=== PATIENT | female | born 1960 | race Caucasian/White ===

== ENCOUNTER 2016-07-28 17:04 | Inpatient (IN) | payer MEDICAID ==
[~2016-07-28] VITALS: Ht 160 cm; Wt 77.3 kg
[2016-07-28 17:05] VITALS: BP 188/90; PULSE 78; RESP 20; TEMP 99.2; O2SAT 98
[2016-07-28] MEDS ORDERED: ONDANSETRON HCL 4 MG/2 ML VIAL IVP ONE (20:15)
[2016-07-28] MEDS ORDERED: SODIUM CHLORIDE 0.9% FLUSH 10 ML FLUSH IV FLUSH PRN (20:15)
--- NOTE | 2016-07-28 20:20 | PD ---
HPI Chief Complaint: Abdominal Pain Time Seen by Provider: 20:17 Travel History International Travel<30 days: No Contact w/Intl Traveler<30days: No Traveled to known affect area: No History of Present Illness HPI 56-year-old female presents to the emergency department for evaluation of abdominal pain for 1 month, but worsening. Patient points to her epigastric region, left upper quadrant, right upper quadrant and suprapubic region when asked her pain is. She also states she has some burning in her back. The patient denies any dysuria. No nausea or vomiting. No fevers. She denies any diarrhea. No chest pain or shortness of breath. She states that her pain will radiate to the right arm. She reports no previous surgeries. She has no chronic medical problems and takes no medications. She denies any alcohol use, tobacco use, drug use. PFSH Past Medical History Medical History: Denies Significant Hx Past Surgical History Surgical History: No Previous Surgery Social History Alcohol Use: No Tobacco Use: No Substance Use: No Allergies-Medications (Allergen,Severity, Reaction): Coded Allergies: Penicillin (Verified Allergy, Unknown, 07/28/16) Reported Meds & Prescriptions Reported Meds & Active Scripts Active No Active Prescriptions or Reported Medications Review of Systems Except as stated in HPI: all other systems reviewed are Neg Physical Exam Narrative GENERAL: Well-nourished, well-developed female patient, ambulatory. Afebrile. SKIN: Focused skin assessment warm/dry. HEAD: Normocephalic. Atraumatic. EYES: No scleral icterus. No injection or drainage. NECK: Supple, trachea midline. No JVD or lymphadenopathy. CARDIOVASCULAR: Regular rate and rhythm without murmurs, gallops, or rubs. RESPIRATORY: Breath sounds equal bilaterally. No accessory muscle use. Lungs sounds are clear to auscultation. GASTROINTESTINAL: Abdomen soft and nondistended. Patient has diffuse tenderness to palpation. This is slightly worse than the right upper quadrant and epigastric regions. MUSCULOSKELETAL: No cyanosis, or edema. BACK: Nontender without obvious deformity. No CVA tenderness. Data Data Last Documented VS Vital Signs Date Time Temp Pulse Resp B/P Pulse Ox O2 Delivery O2 Flow Rate FiO2 07/28/16 20:22 98 Room Air 07/28/16 17:05 99.2 78 20 188/90 Orders Complete Blood Count With Diff (07/28/16 20:15) Comprehensive Metabolic Panel (07/28/16 20:15) Lipase (07/28/16 20:15) Urinalysis - C+S If Indicated (07/28/16 20:15) Iv Access Insert/Monitor (07/28/16 20:15) Ecg Monitoring (07/28/16 20:15) Oximetry (07/28/16 20:15) Ondansetron Inj (Zofran Inj) (07/28/16 20:15) Sodium Chloride 0.9% Flush (Ns Flush) (07/28/16 20:15) Electrocardiogram (07/28/16 20:15) Morphine Inj (Morphine Inj) (07/28/16 20:30) Ct Abd/Pel W Iv Contrast(Rout) (07/28/16 20:20) MDM Medical Decision Making Medical Screen Exam Complete: Yes Emergency Medical Condition: Yes Medical Record Reviewed: Yes Differential Diagnosis Pancreatitis versus cholecystitis versus UTI versus diverticulitis Narrative Course 56-year-old female presents to the emergency department for evaluation of abdominal pain for 1 month. EKG, CBC, CMP, lipase, UA are ordered and pending. CT abdomen/pelvis with IV contrast is ordered and pending. EKG shows sinus rhythm, heart rate 79, no acute ST changes. Dr. Thompson will resume care and disposition of patient. Scripts No Active Prescriptions or Reported Meds Juanita Torres Jul 28, 2016 20:20
[2016-07-28 20:22] VITALS: O2SAT 98
[2016-07-28] MEDS ORDERED: MORPHINE SULFATE 4 MG/ML INJ IV PUSH ONE (20:30)
--- NOTE | 2016-07-28 20:35 | PD ---
Physical Exam Date Seen by Provider: Jul 28, 2016 Time Seen by Provider: 20:33 Narrative The patient is a 56 year-old female was initially evaluated by the mid-level provider. Please refer to the initial history, physical, diagnostic evaluation , and treatment modality plan. Data Data Last Documented VS Vital Signs Date Time Temp Pulse Resp B/P Pulse Ox O2 Delivery O2 Flow Rate FiO2 07/28/16 20:22 98 Room Air 07/28/16 17:05 99.2 78 20 188/90 Orders Complete Blood Count With Diff (07/28/16 20:15) Comprehensive Metabolic Panel (07/28/16 20:15) Lipase (07/28/16 20:15) Urinalysis - C+S If Indicated (07/28/16 20:15) Iv Access Insert/Monitor (07/28/16 20:15) Ecg Monitoring (07/28/16 20:15) Oximetry (07/28/16 20:15) Ondansetron Inj (Zofran Inj) (07/28/16 20:15) Sodium Chloride 0.9% Flush (Ns Flush) (07/28/16 20:15) Electrocardiogram (07/28/16 20:15) Morphine Inj (Morphine Inj) (07/28/16 20:30) Ct Abd/Pel W Iv Contrast(Rout) (07/28/16 20:20) Iohexol 350 Inj (Omnipaque 350 Inj) (07/28/16 21:53) Admit Order (Ed Use Only) (07/28/16 22:42) Diet Npo (07/29/16 Breakfast) Vital Signs (Adult) VANITA.Q4H (07/28/16 22:40) Hepatitis Profile (07/28/16 22:40) Comprehensive Metabolic Panel (07/29/16 06:00) Consult Gastroenterology (07/28/16 ) Us Abdomen Gallbladder (07/28/16 ) Ondansetron Inj (Zofran Inj) (07/28/16 22:45) Hydromorphone Pf Inj (Dilaudid Pf Inj) (07/28/16 22:45) Labs Laboratory Tests Test 07/28/16 07/28/16 07/28/16 20:33 20:53 21:15 White Blood Count 7.9 TH/MM3 Red Blood Count 4.33 MIL/MM3 Hemoglobin 12.7 GM/DL Hematocrit 38.0 % Mean Corpuscular Volume 87.6 FL Mean Corpuscular Hemoglobin 29.3 PG Mean Corpuscular Hemoglobin 33.4 % Concent Red Cell Distribution Width 15.9 % Platelet Count 250 TH/MM3 Mean Platelet Volume 10.8 FL Neutrophils (%) (Auto) 61.7 % Lymphocytes (%) (Auto) 22.3 % Monocytes (%) (Auto) 8.6 % Eosinophils (%) (Auto) 6.7 % Basophils (%) (Auto) 0.7 % Neutrophils # (Auto) 4.9 TH/MM3 Lymphocytes # (Auto) 1.8 TH/MM3 Monocytes # (Auto) 0.7 TH/MM3 Eosinophils # (Auto) 0.5 TH/MM3 Basophils # (Auto) 0.1 TH/MM3 CBC Comment DIFF FINAL Differential Comment Urine Color DARK-YELLOW Urine Turbidity HAZY Urine pH 5.5 Urine Specific [place] 1.021 Urine Protein NEG mg/dL Urine Glucose (UA) NEG mg/dL Urine Ketones NEG mg/dL Urine Occult Blood NEG Urine Nitrite NEG Urine Bilirubin MOD Urine Urobilinogen 2.0 MG/DL Urine Leukocyte Esterase TRACE Urine RBC 1 /hpf Urine WBC 3 /hpf Urine Squamous Epithelial <1 /hpf Cells Urine Calcium Oxalate Crystals OCC /hpf Urine Hyaline Casts 1 /lpf Urine Mucus FEW /lpf Microscopic Urinalysis Comment CULT NOT INDICATED Sodium Level 139 MEQ/L Potassium Level 3.7 MEQ/L Chloride Level 105 MEQ/L Carbon Dioxide Level 26.4 MEQ/L Anion Gap 8 MEQ/L Blood Urea Nitrogen 17 MG/DL Creatinine 0.67 MG/DL Estimat Glomerular Filtration 91 ML/MIN Rate Random Glucose 111 MG/DL Calcium Level 8.6 MG/DL Total Bilirubin 5.5 MG/DL Aspartate Amino Transf 106 U/L (AST/SGOT) Alanine Aminotransferase 93 U/L (ALT/SGPT) Alkaline Phosphatase 372 U/L Total Protein 8.5 GM/DL Albumin 3.2 GM/DL Lipase 196 U/L [facility] Medical Record Reviewed: Yes Supervised Visit with EVELYN: Yes Interpretation(s) EKG reveals normal sinus rhythm, no evidence of ischemia or ectopy noted. Laboratory Tests Test 07/28/16 07/28/16 07/28/16 20:33 20:53 21:15 White Blood Count 7.9 TH/MM3 Red Blood Count 4.33 MIL/MM3 Hemoglobin 12.7 GM/DL Hematocrit 38.0 % Mean Corpuscular Volume 87.6 FL Mean Corpuscular Hemoglobin 29.3 PG Mean Corpuscular Hemoglobin 33.4 % Concent Red Cell Distribution Width 15.9 % Platelet Count 250 TH/MM3 Mean Platelet Volume 10.8 FL Neutrophils (%) (Auto) 61.7 % Lymphocytes (%) (Auto) 22.3 % Monocytes (%) (Auto) 8.6 % Eosinophils (%) (Auto) 6.7 % Basophils (%) (Auto) 0.7 % Neutrophils # (Auto) 4.9 TH/MM3 Lymphocytes # (Auto) 1.8 TH/MM3 Monocytes # (Auto) 0.7 TH/MM3 Eosinophils # (Auto) 0.5 TH/MM3 Basophils # (Auto) 0.1 TH/MM3 CBC Comment DIFF FINAL Differential Comment Urine Color DARK-YELLOW Urine Turbidity HAZY Urine pH 5.5 Urine Specific [place] 1.021 Urine Protein NEG mg/dL Urine Glucose (UA) NEG mg/dL Urine Ketones NEG mg/dL Urine Occult Blood NEG Urine Nitrite NEG Urine Bilirubin MOD Urine Urobilinogen 2.0 MG/DL Urine Leukocyte Esterase TRACE Urine RBC 1 /hpf Urine WBC 3 /hpf Urine Squamous Epithelial <1 /hpf Cells Urine Calcium Oxalate Crystals OCC /hpf Urine Hyaline Casts 1 /lpf Urine Mucus FEW /lpf Microscopic Urinalysis Comment CULT NOT INDICATED Sodium Level 139 MEQ/L Potassium Level 3.7 MEQ/L Chloride Level 105 MEQ/L Carbon Dioxide Level 26.4 MEQ/L Anion Gap 8 MEQ/L Blood Urea Nitrogen 17 MG/DL Creatinine 0.67 MG/DL Estimat Glomerular Filtration 91 ML/MIN Rate Random Glucose 111 MG/DL Calcium Level 8.6 MG/DL Total Bilirubin 5.5 MG/DL Aspartate Amino Transf 106 U/L (AST/SGOT) Alanine Aminotransferase 93 U/L (ALT/SGPT) Alkaline Phosphatase 372 U/L Total Protein 8.5 GM/DL Albumin 3.2 GM/DL Lipase 196 U/L Last Impressions Abdomen/Pelvis CT 07/28/162019 Signed Impressions: Service Date/Time: Thursday, July 28, 2016 21:42 - CONCLUSION: 1. Nonspecific thickening and enhancement of numerous loops of small bowel predominantly in the left abdomen. There is associated mild ascites in the abdomen and pelvis. Differential diagnosis includes enteritis or inflammatory bowel disease. No bowel obstruction. No free air. Jorge Cody MD Differential Diagnosis Differential diagnosis includes pancreatitis, choledocholithiasis, cholecystitis , gastritis, peptic ulcer disease, pyelonephritis, nephrolithiasis, atypical appendicitis. Narrative Course I, Dr. Thompson, have reviewed the advance practice practitioner's documentation and am in agreement, met with the patient face to face, made the diagnosis, and the medical decision making was done by me. *My assessment and Findings: The patient is a 56 year-old female was initially evaluated by the mid-level provider. Please refer to the initial history, physical, diagnostic evaluation, treatment modality plan. The patient complains of epigastric right upper quadrant abdominal pain that radiates to the right shoulder. On physical examination the patient is obviously jaundiced, has tenderness in the right upper quadrant. Patient's bilirubin is elevated at 5.5, AST nail tear elevated and alkaline phosphatase is elevated. CT reveals possible enteritis versus inflammatory bowel disease, no visible gallstones in the common bile duct appears normal. However, patient may have obstructive disease , will need further imaging with ultrasound possible MRCP. Therefore, patient will be admitted to the medical service. A call was placed to the on-call medical team for admission. Physician Communication Physician Communication The on-call medical service was paged for admission. I discussed the patient with Dr. Patel who agrees with admission. Diagnosis Primary Impression: Hyperbilirubinemia Additional Impressions: Obstructive jaundice Abdominal pain Qualified Code: R10.84 - Generalized abdominal pain Admitting Information Admitting Physician Requests: Admit Scripts No Active Prescriptions or Reported Meds Condition: Stable Serjio Thompson MD Jul 28, 2016 20:35
[2016-07-28 20:57] LABS: AUTOMATED NEUTROPHIL # 4.9 TH/MM3 (1.8-7.7); BASOPHIL # 0.1 TH/MM3 (0-0.2); BASOPHIL % 0.7 % (0.0-2.0); EOSINOPHIL # 0.5 TH/MM3 (0-0.4); EOSINOPHIL % 6.7 % (0.0-4.0); HEMO FLAGS DIFF FINAL; LYMPH % 22.3 % (9.0-44.0); LYMPHOCYTE # 1.8 TH/MM3 (1.0-4.8); MEAN CELL VOLUME 87.6 FL (80.0-100.0); MEAN CORPUSCULAR HEMOGLOBIN 29.3 PG (27.0-34.0); MEAN CORPUSCULAR HGB CONC 33.4 % (32.0-36.0); MONO % 8.6 % (0.0-8.0); NEUT % 61.7 % (16.0-70.0); PLATELET COUNT 250 TH/MM3 (150-450); RED BLOOD COUNT 4.33 MIL/MM3 (4.00-5.30); RED CELL DISTRIBUTION WIDTH 15.9 % (11.6-17.2); WHITE BLOOD COUNT 7.9 TH/MM3 (4.0-11.0)
[2016-07-28 21:06] LABS: BLOOD, URINE NEG (NEG); CALCIUM OXALATE CRYSTALS,URINE OCC /hpf; COMMENT (UR) CULT NOT INDICATED; CULTURE IF INDICATED CULT NOT INDICATED; GLUCOSE,URINE NEG (NEG); HYALINE CAST, URINE 1 /lpf (RARE); KETONE, URINE NEG (NEG); MUCUS URINE FEW /lpf (OCC); NITRITE,URINE NEG (NEG); PH, URINE 5.5 (5.0-8.5); SQUAMOUS EPITHELIAL CELL URINE <1 /hpf (0-5); URINE COLOR DARK-YELLOW (YELLW/STRAW)
[2016-07-28 21:51] LABS: ANION GAP 8 MEQ/L (5-15); AST (GOT) 106 U/L (15-37); BICARBONATE 26.4 MEQ/L (21.0-32.0); BLOOD UREA NITROGEN 17 MG/DL (7-18); CHLORIDE 105 MEQ/L (98-107); GLOMERULAR FILTRATION RATE 91 ML/MIN (>89); POTASSIUM 3.7 MEQ/L (3.5-5.1); SODIUM (NA) 139 MEQ/L (136-145)
[2016-07-28] MEDS ORDERED: IOHEXOL 350 MG/ML 10 ML VIAL (for RAD DIAG) IV ONE (21:53)
[2016-07-28 21:54] LABS: ALKALINE PHOSPHATASE 372 U/L (45-117); ALT (GPT) 93 U/L (10-53); TOTAL BILIRUBIN ADULT 5.5 MG/DL (0.2-1.0)
--- NOTE | 2016-07-28 22:22 | RADRPT ---
EXAM DATE/TIME: 07/28/2016 21:42 [facility] COMPARISON: No previous studies available for comparison. INDICATIONS : Left upper and lower quadrant abdominal pain. IV CONTRAST: 100 cc Omnipaque 350 (iohexol) IV ORAL CONTRAST: No oral contrast ingested. RADIATION DOSE: 9.96 CTDIvol (mGy) MEDICAL HISTORY : None SURGICAL HISTORY : None. ENCOUNTER: Initial ACUITY: 1 week PAIN SCALE: 5/10 LOCATION: Left lower quadrant TECHNIQUE: Volumetric scanning of the abdomen and pelvis was performed. Using automated exposure control and ad justment of the mA and/or kV according to patient size, radiation dose was kept as low as reasonably achievable to obtain optimal diagnostic quality images. FINDINGS: No prior studies available for comparison. Lung bases are clear. There is mild ascites in the abdomen and pelvis. Intrahepatic biliary ductal system is mildly prominent. No significant abnormality in th e spleen. No calcified gallstones. Common bile duct has relatively normal caliber. They are numerous thickened loops of small bowel in the left abdomen probably with some mural enhance ment. Findings nonspecific but this could represent an enteritis. No definite obstruction. No free ai r. No acute bony abnormalities. CONCLUSION: 1. Nonspecific thickening and enhancement of numerous loops of small bowel predominantly in the left abdomen. There is associated mild ascites in the abdomen and pelvis. Differential diagnosis includes enteritis or inflammatory bowel disease. No bowel obstruction. No free air. Jorge Cody MD on July 28, 2016 at 22:17 Board Certified Radiologist. This report was verified electronically.
[2016-07-28] MEDS ORDERED: ONDANSETRON HCL 4 MG/2 ML VIAL IV PUSH PRN (22:45)
[2016-07-28] MEDS: SODIUM CHLOR 0.9% 1000 ML INJ 1,000 ML IV SCH (22:52)
[2016-07-28 23:49] VITALS: BP 164/77; PULSE 72; RESP 16; O2SAT 96
--- NOTE | 2016-07-28 23:58 | HHI.HP ---
[facility] Service [facility] Primary Care Physician No Primary Care Physician Admission Diagnosis hyperbilirubinemia, rule out obstructive jaundice, enteritis Diagnoses: (1) Abdominal pain Diagnosis: Principal Chief Complaint: abdominal pain Travel History International Travel<30 Days: No Contact w/Intl Traveler <30 Da: No Traveled to Known Affected Are: No History of Present Illness patient is a 56 y/o female , mongolian speaking,with no significant past medical history who presented with abdominal pain. she says that she's had this pain for about a month. pain is more or less generalized although it's more pronounced in LLQ.the pain is intermittent. she says that the pain is worse with defecation. she denies any fever, chills, or diarrhea. she says that she's probably last some weight. Review of Systems Constitutional: COMPLAINS OF: Weight loss, DENIES: Fever, Chills, Night Sweats Eyes: DENIES: Blurred vision, Diplopia, Vision loss, Double Vision Ears, nose, mouth, throat: DENIES: Tinnitus, Vertigo, Throat pain, Epistaxis Respiratory: DENIES: Apneas, Cough, Snoring, Wheezing, Hemoptysis, Sputum production, Shortness of breath Cardiovascular: DENIES: Chest pain, Palpitations, Syncope, Dyspnea on Exertion , PND, Lower Extremity Edema, Orthopnea, Claudication Gastrointestinal: COMPLAINS OF: Abdominal pain, DENIES: Black stools, Bloody stools, Constipation, Diarrhea, Nausea, Vomiting, Difficulty Swallowing, Anorexia Genitourinary: DENIES: Urinary frequency, Urgency, Hematuria, Dysuria Musculoskeletal: DENIES: Joint pain, Muscle aches, Stiffness, Joint Swelling Integumentary: DENIES: Rash Neurologic: DENIES: Abnormal gait, Headache, Localized weakness, Paresthesias, Seizures, Speech Problems, Tremor, Poor Balance Psychiatric: DENIES: Anxiety, Confusion, Mood changes, Depression, Hallucinations, Agitation, Suicidal Ideation, Homicidal Ideation, Delusions Past Family Social History Past Medical History not significant. Past Surgical History none reported. Reported Medications none. Allergies: Coded Allergies: Penicillin (Verified Allergy, Unknown, 07/28/16) Active Ordered Medications Current Medications Ondansetron HCl (Zofran Inj) 4 mg ONCE ONCE IVP Last administered on 07/28/16 21:01; Start 07/28/16 at 20:15; Stop 07/28/16 at 20:17; Status DC Sodium Chloride (NS Flush) 2 ml UNSCH PRN IV FLUSH FLUSH AFTER USING IV ACCESS ; Start 07/28/16 at 20:15 Morphine Sulfate (Morphine Inj) 4 mg ONCE ONCE IV PUSH Last administered on 21:01; Start 07/28/16 at 20:30; Stop 07/28/16 at 20:31; Status DC Iohexol (Omnipaque 350 Inj) 100 ml STK-MED ONCE IV Last administered on 21:53; Start 07/28/16 at 21:53; Stop 07/28/16 at 21:54; Status DC Ondansetron HCl (Zofran Inj) 4 mg Q8H PRN IV PUSH NAUSEA; Start 07/28/16 at 22: 45 Hydromorphone HCl 0.2 mg 0.2 mg Q4H PRN IV PUSH PAIN; Start 07/28/16 at 22:45 Sodium Chloride (NS 1000 ml Inj) 1,000 ml @ 100 mls/hr Q10H IV Last administered on 07/28/16 22:52; Start 07/28/16 at 22:45 Family History not significant. Social History no smoking or drinking. Physical Exam Vital Signs Vital Signs Date Time Temp Pulse Resp B/P Pulse Ox O2 Delivery O2 Flow Rate FiO2 07/28/16 23:49 72 16 164/77 96 07/28/16 20:22 98 Room Air 07/28/16 17:05 99.2 78 20 188/90 98 Room Air Physical Exam GENERAL: This is a well-nourished, well-developed patient, in no apparent distress. SKIN: No rashes, ecchymoses or lesions. Cool and dry. HEAD: Atraumatic. Normocephalic. No temporal or scalp tenderness. EYES: with icteric sclera ENT: Nose without bleeding, purulent drainage or septal hematoma. Throat without erythema, tonsillar hypertrophy or exudate. Uvula midline. Airway patent. NECK: Trachea midline. No JVD or lymphadenopathy. Supple, nontender, no meningeal signs. CARDIOVASCULAR: Regular rate and rhythm without murmurs, gallops, or rubs. RESPIRATORY: Clear to auscultation. Breath sounds equal bilaterally. No wheezes , rales, or rhonchi. GASTROINTESTINAL: Abdomen soft, LLQ tenderness, nondistended. No hepato- splenomegaly, or palpable masses. No guarding. MUSCULOSKELETAL: Extremities without clubbing, cyanosis, or edema. No joint tenderness, effusion, or edema noted. No calf tenderness. Negative Homans sign bilaterally. NEUROLOGICAL: Awake and alert. Cranial nerves II through XII intact. Motor and sensory grossly within normal limits. Five out of 5 muscle strength in all muscle groups. Normal speech. Laboratory Laboratory Tests Test 07/28/16 07/28/16 07/28/16 20:33 20:53 21:15 White Blood Count 7.9 Red Blood Count 4.33 Hemoglobin 12.7 Hematocrit 38.0 Mean Corpuscular Volume 87.6 Mean Corpuscular Hemoglobin 29.3 Mean Corpuscular Hemoglobin 33.4 Concent Red Cell Distribution Width 15.9 Platelet Count 250 Mean Platelet Volume 10.8 Neutrophils (%) (Auto) 61.7 Lymphocytes (%) (Auto) 22.3 Monocytes (%) (Auto) 8.6 Eosinophils (%) (Auto) 6.7 Basophils (%) (Auto) 0.7 Neutrophils # (Auto) 4.9 Lymphocytes # (Auto) 1.8 Monocytes # (Auto) 0.7 Eosinophils # (Auto) 0.5 Basophils # (Auto) 0.1 CBC Comment DIFF FINAL Differential Comment Urine Color DARK-YELLOW Urine Turbidity HAZY Urine pH 5.5 Urine Specific [place] 1.021 Urine Protein NEG Urine Glucose (UA) NEG Urine Ketones NEG Urine Occult Blood NEG Urine Nitrite NEG Urine Bilirubin MOD Urine Urobilinogen 2.0 Urine Leukocyte Esterase TRACE Urine RBC 1 Urine WBC 3 Urine Squamous Epithelial <1 Cells Urine Calcium Oxalate Crystals OCC Urine Hyaline Casts 1 Urine Mucus FEW Microscopic Urinalysis Comment CULT NOT INDICATED Sodium Level 139 Potassium Level 3.7 Chloride Level 105 Carbon Dioxide Level 26.4 Anion Gap 8 Blood Urea Nitrogen 17 Creatinine 0.67 Estimat Glomerular Filtration 91 Rate Random Glucose 111 Calcium Level 8.6 Total Bilirubin 5.5 Aspartate Amino Transf 106 (AST/SGOT) Alanine Aminotransferase 93 (ALT/SGPT) Alkaline Phosphatase 372 Total Protein 8.5 Albumin 3.2 Lipase 196 Result Diagram: 07/28/16203207/28/162114 Imaging Last Impressions Abdomen/Pelvis CT 07/28/162019 Signed Impressions: Service Date/Time: Thursday, July 28, 2016 21:42 - CONCLUSION: 1. Nonspecific thickening and enhancement of numerous loops of small bowel predominantly in the left abdomen. There is associated mild ascites in the abdomen and pelvis. Differential diagnosis includes enteritis or inflammatory bowel disease. No bowel obstruction. No free air. Jorge Cody MD Assessment and Plan Assessment and Plan A/P - abdominal pain CT abdomen with possible enteritis/ inflammatory bowel disease NPO for now- start IV fluid and continue with pain control- will start Abx and consult GI -elevated LFT's liver sonogram pending/ check the hepatitis panel- GI consult -DVT prophylaxis with SCD's Discussed Condition With ER physician and the patient. Physician Certification 2 Midnight Certification Type: Admission for Inpatient Services Order for Inpatient Services The services are ordered in accordance with Medicare regulations or non- Medicare payer requirements, as applicable. In the case of services not specified as inpatient-only, they are appropriately provided as inpatient services in accordance with the 2-midnight benchmark. Estimated LOS (days): 2 days is the estimated time the patient will need to remain in the hospital, assuming treatment plan goals are met and no additional complications. Post-Hospital Plan: Home Problem Qualifiers (1) Abdominal pain: Qualified Code: R10.84 - Generalized abdominal pain Bre Patel MD Jul 28, 2016 23:58
[2016-07-29] VITALS (7 sets, daily range): BP systolic 152–165; BP diastolic 74–93; PULSE 71–93; RESP 16–20; TEMP 97.7–99.2; O2SAT 96–98
--- NOTE | 2016-07-29 00:01 | RADRPT ---
EXAM DATE/TIME: 07/28/2016 23:17 [facility] COMPARISON: CT ABDOMEN & PELVIS W CONTRAST, July 28, 2016, 21:42. INDICATIONS : Right upper quadrant pain. MEDICAL HISTORY : Right upper quadrant pain. Substance use. SURGICAL HISTORY : None. ENCOUNTER: Initial ACUITY: 1 month PAIN SCORE: 10/10 LOCATION: Right upper quadrant MEASUREMENTS: LIVER: 15.1 cm length COMMON DUCT: 6 mm RIGHT KIDNEY: 10.3 x 5.3 x 4.6 cm FINDINGS: LIVER: Normal echotexture without focal lesion or ductal dilatation. Hepatopedal flow within the portal vein . Trace amount of ascites adjacent to the right lobe COMMON DUCT: No intraluminal mass or stone visualized. GALLBLADDER: A 2.7 cm solitary calcified gallstone within an otherwise normal-appearing gallbladder. No gallbladde r wall thickening or pericholecystic fluid. PANCREAS: The visualized portions are within normal limits. RIGHT KIDNEY: No evidence of hydronephrosis, stone, or mass. CONCLUSION: 1. Cholelithiasis without sonographic evidence to suggest acute cholecystitis. 2. Trace amount of ascites. Bert Nunes Jr., MD on July 28, 2016 at 23:57 Board Certified Radiologist. This report was verified electronically.
[2016-07-29] MEDS: LEVOFLOXACIN 500 MG PREMIX INJ 100 ML IV SCH ×2 (00:27→23:12)
[2016-07-29] MEDS: metroNIDAZOLE 500 MG INJ 100 ML IV SCH ×3 (01:23→17:00)
[2016-07-29 04:11] LABS: INTERNATIONAL NORMALIZED RATIO 1.1 RATIO; PROTHROMBIN TIME - PATIENT 11.9 SEC (9.8-11.6)
[2016-07-29 06:11] LABS: ALT (GPT) 88 U/L (10-53); ANION GAP 8 MEQ/L (5-15); AST (GOT) 99 U/L (15-37); BICARBONATE 26.8 MEQ/L (21.0-32.0); BLOOD UREA NITROGEN 13 MG/DL (7-18); CHLORIDE 105 MEQ/L (98-107); GLOMERULAR FILTRATION RATE 96 ML/MIN (>89); POTASSIUM 3.7 MEQ/L (3.5-5.1); SODIUM (NA) 140 MEQ/L (136-145)
[2016-07-29 06:13] LABS: ALKALINE PHOSPHATASE 356 U/L (45-117); TOTAL BILIRUBIN ADULT 5.9 MG/DL (0.2-1.0)
--- NOTE | 2016-07-29 08:10 | HHI.PR ---
Subjective Remarks Follow up abdominal pain, elevated LFTs. Computer translation service used with nurse present. Patient states that her abdominal pain has improved. Denies nausea/vomiting/diarrhea. Still with mild abdominal pain in RUQ. No fever. Objective Vitals Vital Signs Date Time Temp Pulse Resp B/P Pulse Ox O2 Delivery O2 Flow Rate FiO2 07/29/16 07:55 97.7 75 16 159/79 98 Room Air 07/29/16 03:36 77 16 162/74 98 Room Air 07/28/16 23:49 72 16 164/77 96 07/28/16 20:22 98 Room Air 07/28/16 17:05 99.2 78 20 188/90 98 Room Air Result Diagram: 07/28/16203207/29/16 0501 Imaging Last Impressions Abdomen/Pelvis CT 07/28/162019 Signed Impressions: Service Date/Time: Thursday, July 28, 2016 21:42 - CONCLUSION: 1. Nonspecific thickening and enhancement of numerous loops of small bowel predominantly in the left abdomen. There is associated mild ascites in the abdomen and pelvis. Differential diagnosis includes enteritis or inflammatory bowel disease. No bowel obstruction. No free air. Jorge Cody MD Gall Bladder Ultrasound 07/28/16 0000 Signed Impressions: Service Date/Time: Thursday, July 28, 2016 23:17 - CONCLUSION: 1. Cholelithiasis without sonographic evidence to suggest acute cholecystitis. 2. Trace amount of ascites. Bert Nunes Jr., MD Objective Remarks General: No acute distress. Heart: Regular rate and rhythm. 2/6 systolic murmur. Lungs: Clear to auscultation bilaterally. No wheezes, rales, or rhonchi. Breathing is nonlabored. Abdomen: Soft, nondistended. Mild tenderness in RUQ without rebound/guarding. Extremities: No lower extremity edema. Psych: Alert and oriented. Procedures None Urinary Catheter: No Vascular Central Line Catheter: No A/P Problem List: (1) Abdominal pain ICD Code: R10.9 Status: Acute (2) Hyperbilirubinemia ICD Code: E80.6 Status: Acute (3) Elevated LFTs ICD Code: R94.5 Status: Acute Assessment and Plan 1. Abdominal pain: CT of the abdomen/pelvis shows possible enteritis, inflammatory bowel disease. Gastroenterology consult is pending. Nothing by mouth. Continue empiric antibiotics, Levaquin and Flagyl. Continue pain control. 2. Elevated LFTs, hyperbilirubinemia: Hepatitis panel pending. GI consult pending. 3. DVT prophylaxis: YUE [place]a. Problem Qualifiers (1) Abdominal pain: Qualified Code: R10.84 - Generalized abdominal pain Angel Us MD Jul 29, 2016 08:10
[2016-07-29] MEDS ORDERED: NALOXONE HCL 0.4 MG/ML AMP IV PRN (08:15)
[2016-07-29] MEDS: SODIUM CHLOR 0.9% 1000 ML INJ 1,000 ML IV SCH ×2 (08:55→22:21)
--- NOTE | 2016-07-29 12:55 | EKG ---
Date Performed: 07/28/2016 Time Performed: 20:26:17 PTAGE: 56 years EKG: Sinus rhythm NORMAL ECG NO PREVIOUS TRACING DOCTOR: Leandro Vazquez Interpretating Date/Time 07/29/2016 12:54:03
--- NOTE | 2016-07-29 14:34 | PD.CONS ---
HPI History of Present Illness This is a 56 year old [beninese speaking lady], with no significant medical history who came to the hospital for worsening abdominal pain that started 5 weeks ago and while here was found to have elevated liver enzymes and hyperbilirubinemia. She said the pain started as crampy on and off and gradually got worse until she couldn't stand it anymore. she denies nausea, vomiting, fever, diarrhea, blood in stool at any time since the pain started. Denies sick contacts, recent travel, antibiotics, or change in diet or medication. She takes no medication except excedrin. The pain has improved greatly since she came to the hospital but she still has small twinges when she goes to urinate or have a bowel movement, then the pain is relieved after defecating or urinating. She indicates that the pain is in her lower abdomen. She takes 2 excedrin daily for energy, does not know if they contain tylenol or aspirin. She has never had an EGD or colonoscopy. Translation via videoconference with remote quarter section ironer. (Giselle Nunez) PFSH Past Medical History none Past Surgical History none reported. (Giselle Nunez) Coded Allergies: Penicillin (Verified Allergy, Unknown, 07/28/16) Medications Current Medications Medications (Trade) Dose Ordered Sig/Anastacio Route PRN Reason Start Time Stop Time Status Last Admin Dose Admin Sodium Chloride (NS Flush) 2 ml UNSCH PRN IV FLUSH FLUSH AFTER USING IV ACCESS 07/28/16 20:15 Hydromorphone HCl 0.2 mg 0.2 mg Q4H PRN IV PUSH PAIN 07/28/16 22:45 Sodium Chloride 1,000 ml @ 100 mls/hr Q10H IV 07/28/16 22:45 07/29/16 08:55 Levofloxacin/ Dextrose 100 ml @ 100 mls/hr Q24H IV 07/29/16 00:00 07/29/16 00:27 Metronidazole (Flagyl 500 Mg Inj) 100 ml @ 100 mls/hr Q8H IV 07/29/16 01:00 07/29/16 09:21 Ondansetron HCl (Zofran Inj) 4 mg Q8HR PRN IV PUSH NAUSEA 07/29/16 00:00 Naloxone HCl (Narcan Inj) 0.4 mg UNSCH PRN IV SEE LABEL COMMENTS 07/29/16 08:15 Family History Her father of cancer, type unk Social History no smoking or drinking. (Giselle Nunez) Review of Systems Constitutional: DENIES: Fatigue, Fever, Chills Eyes: DENIES: Blurred vision Ears, nose, mouth, throat: DENIES: Hearing loss Respiratory: DENIES: Cough Cardiovascular: DENIES: Chest pain Gastrointestinal: COMPLAINS OF: Abdominal pain, DENIES: Black stools, Bloody stools, Constipation, Diarrhea, Nausea, Vomiting, Heartburn Musculoskeletal: DENIES: Joint pain Integumentary: DENIES: Pruritus Hematologic/lymphatic: DENIES: Bruising Neurologic: DENIES: Abnormal gait Psychiatric: DENIES: Confusion (Giselle Nunez) GI Exam Vitals I&O Vital Signs Date Time Temp Pulse Resp B/P Pulse Ox O2 Delivery O2 Flow Rate FiO2 07/29/16 12:30 99.2 87 18 165/89 97 07/29/16 12:21 74 18 152/74 99 07/29/16 11:28 71 20 158/77 96 Room Air 07/29/16 07:55 97.7 75 16 159/79 98 Room Air 07/29/16 03:36 77 16 162/74 98 Room Air 07/28/16 23:49 72 16 164/77 96 07/28/16 20:22 98 Room Air 07/28/16 17:05 99.2 78 20 188/90 98 Room Air Imaging Last Impressions Abdomen/Pelvis CT 07/28/162019 Signed Impressions: Service Date/Time: Thursday, July 28, 2016 21:42 - CONCLUSION: 1. Nonspecific thickening and enhancement of numerous loops of small bowel predominantly in the left abdomen. There is associated mild ascites in the abdomen and pelvis. Differential diagnosis includes enteritis or inflammatory bowel disease. No bowel obstruction. No free air. Jorge Cody MD Gall Bladder Ultrasound 07/28/16 0000 Signed Impressions: Service Date/Time: Thursday, July 28, 2016 23:17 - CONCLUSION: 1. Cholelithiasis without sonographic evidence to suggest acute cholecystitis. 2. Trace amount of ascites. Bert Nunes Jr., MD Laboratory Test 07/28/16 07/28/16 07/28/16 07/29/16 20:33 20:53 21:15 03:39 White Blood Count 7.9 TH/MM3 Red Blood Count 4.33 MIL/MM3 Hemoglobin 12.7 GM/DL Hematocrit 38.0 % Mean Corpuscular Volume 87.6 FL Mean Corpuscular Hemoglobin 29.3 PG Mean Corpuscular Hemoglobin 33.4 % Concent Red Cell Distribution Width 15.9 % Platelet Count 250 TH/MM3 Mean Platelet Volume 10.8 FL Neutrophils (%) (Auto) 61.7 % Lymphocytes (%) (Auto) 22.3 % Monocytes (%) (Auto) 8.6 % Eosinophils (%) (Auto) 6.7 % Basophils (%) (Auto) 0.7 % Neutrophils # (Auto) 4.9 TH/MM3 Lymphocytes # (Auto) 1.8 TH/MM3 Monocytes # (Auto) 0.7 TH/MM3 Eosinophils # (Auto) 0.5 TH/MM3 Basophils # (Auto) 0.1 TH/MM3 CBC Comment DIFF FINAL Differential Comment Urine Color DARK-YELLOW Urine Turbidity HAZY Urine pH 5.5 Urine Specific [place] 1.021 Urine Protein NEG mg/dL Urine Glucose (UA) NEG mg/dL Urine Ketones NEG mg/dL Urine Occult Blood NEG Urine Nitrite NEG Urine Bilirubin MOD Urine Urobilinogen 2.0 MG/DL Urine Leukocyte Esterase TRACE Urine RBC 1 /hpf Urine WBC 3 /hpf Urine Squamous Epithelial <1 /hpf Cells Urine Calcium Oxalate Crystals OCC /hpf Urine Hyaline Casts 1 /lpf Urine Mucus FEW /lpf Microscopic Urinalysis Comment CULT NOT INDICATED Sodium Level 139 MEQ/L Potassium Level 3.7 MEQ/L Chloride Level 105 MEQ/L Carbon Dioxide Level 26.4 MEQ/L Anion Gap 8 MEQ/L Blood Urea Nitrogen 17 MG/DL Creatinine 0.67 MG/DL Estimat Glomerular Filtration 91 ML/MIN Rate Random Glucose 111 MG/DL Calcium Level 8.6 MG/DL Total Bilirubin 5.5 MG/DL Aspartate Amino Transf 106 U/L (AST/SGOT) Alanine Aminotransferase 93 U/L (ALT/SGPT) Alkaline Phosphatase 372 U/L Total Protein 8.5 GM/DL Albumin 3.2 GM/DL Lipase 196 U/L Prothrombin Time 11.9 SEC Prothromb Time International 1.1 RATIO Ratio Hepatitis A IgM Antibody NEGATIVE Hepatitis B Surface Antigen NEGATIVE Hepatitis B Core IgM Antibody NEGATIVE Hepatitis C Antibody NEGATIVE Test 07/29/16 05:01 Sodium Level 140 MEQ/L Potassium Level 3.7 MEQ/L Chloride Level 105 MEQ/L Carbon Dioxide Level 26.8 MEQ/L Anion Gap 8 MEQ/L Blood Urea Nitrogen 13 MG/DL Creatinine 0.64 MG/DL Estimat Glomerular Filtration 96 ML/MIN Rate Random Glucose 98 MG/DL Calcium Level 8.7 MG/DL Total Bilirubin 5.9 MG/DL Aspartate Amino Transf 99 U/L (AST/SGOT) Alanine Aminotransferase 88 U/L (ALT/SGPT) Alkaline Phosphatase 356 U/L Total Protein 8.1 GM/DL Albumin 3.0 GM/DL Physical Examination HEENT: EOMI; normocephalic; atraumatic; NECK: Neck is supple, no JVD, CHEST: Chest is clear to auscultation and percussion. CARDIAC: Regular rate and rhythm with no murmur gallop or rubs. ABDOMEN: Soft, nondistended, TTP RUQ, LUQ, epigastric region; bowel sounds are present in all four quadrants. EXTREMITIES: No clubbing, cyanosis, or edema. SKIN: Normal; no rash; jaundiced appearance. [employer] GRAIN: No focal deficits; alert and oriented times three. (Giselle Nunez) Assessment and Plan Plan ASSESSMENT: - elevated LFTs. ALT 88, AST 106, ALP 356, Tbili 5.9. Hep panel neg. Pt denies ETOH, drugs. Imaging does not suggest biliary obstruction. US GB 07/28/16 cholelithiasis without sonographic evidence to suggest acute cholecystitis, trace amound ascites. 07/28/16 CT----> nonspecific thickening and enhancement of numerous loops of small bowel predominantly in the left abdomen. There is associated mild ascites in abdomen and pelvis. Differential includes enteritis or IBD. No bowel obstruction - abdominal pain, improving. gastroenteritis? Pt indicated lower abdominal pain but tender to palpation of upper abdomen, bryan RUQ. US GB 07/28/16----> cholelithiasis without sonographic evidence to suggest acute cholecystitis, trace amount ascites. 07/28/16 CT----> nonspecific thickening and enhancement of numerous loops of small bowel predominantly in the left abdomen. There is associated mild ascites in abdomen and pelvis. Differential includes enteritis or IBD. No bowel obstruction PLAN: - SARAHI - liver immunology and serology labs - check tylenol level - consider MRCP - continue PPI (Giselle Nunez) Physician Comments Seen and examined, on her way to MRI. No clear etiology of symptoms yet. EGD tomorrow. Thank you (Rajni Hagen MD) Giselle Nunez Jul 29, 2016 14:34 Rajni Hagen MD Jul 29, 2016 19:20
[2016-07-29 15:31] LABS: FERRITIN 41 NG/ML (8-252); TRANSFERRIN IRON PROFILE 310 MG/DL (200-360)
[2016-07-29 16:19] LABS: ACETAMINOPHEN LESS THAN 2.0 MCG/ML (10.0-30.0)
--- NOTE | 2016-07-29 21:07 | RADRPT ---
EXAM DATE/TIME: 07/29/2016 19:06 This report includes an Addendum and supersedes previous reports for this exam. [facility] COMPARISON: CT ABDOMEN & PELVIS W CONTRAST, July 28, 2016, 21:42. INDICATIONS : Abdominal pain. Obstruction. MEDICAL HISTORY : None. SURGICAL HISTORY : None. ENCOUNTER: Subsequent ACUITY: 2 day PAIN SCORE: 4/10 LOCATION: abdomen. TECHNIQUE: Multiplanar, multisequence magnetic resonance imaging of the abdomen was performed. High-resolution 3D dataset was utilized to reconstruct maximum-intensity projection (MIP) images. FINDINGS: Large gallstone is present. There is slight ascites throughout the abdomen and pelvis. There are tiny cysts in the left kidney. The common bile duct measures 4 mm without filling defects. CONCLUSION: Slight ascites and large gallstone. Marc Levine MD on July 29, 2016 at 21:04 Board Certified Radiologist. This report was verified electronically. ADDENDUM: The common hepatic duct does appear to be significantly attenuated just below the level of the duct c onfluence. The appearance is worrisome for high-grade stricture. The length of the abnormality appear s to be just under 2 cm. No discrete mass is identified. Fadi Santa MD on July 30, 2016 at 17:14 Board Certified Radiologist. This report was verified electronically.
[2016-07-29] MEDS ORDERED: CHLORHEXIDINE GLUCONATE 2 % 1 PACK (2 CLOTHS) TOPICAL PRN (23:30)
[2016-07-29] MEDS ORDERED: POVIDONE IODINE 5% (ANTISEPSIS KIT) 4 APPLICATIONS EACH NARE PRN (23:30)
[2016-07-29] MEDS ORDERED: SODIUM CHLORID 0.9% 500 ML IV PRN (23:30)
[2016-07-29] MEDS ORDERED: LACTATED RINGER'S 1000 ML IV PRN (23:30)
[2016-07-29] MEDS ORDERED: INSULIN HUMAN REGULAR 1,000 UNITS/10 ML VIAL SQ PRN (23:30)
[2016-07-29] MEDS ORDERED: METOPROLOL TARTRATE 25 MG TAB PO PRN (23:30)
[2016-07-30] VITALS (12 sets, daily range): BP systolic 150–172; BP diastolic 74–93; PULSE 74–90; RESP 16–18; TEMP 98.5–99.4; O2SAT 94–98
[2016-07-30] MEDS: metroNIDAZOLE 500 MG INJ 100 ML IV SCH ×3 (00:10→18:20)
[2016-07-30] MEDS: SODIUM CHLOR 0.9% 1000 ML INJ 1,000 ML IV SCH (00:11)
[2016-07-30 07:20] LABS: ALKALINE PHOSPHATASE 354 U/L (45-117); ALT (GPT) 91 U/L (10-53); ANION GAP 9 MEQ/L (5-15); AST (GOT) 106 U/L (15-37); BLOOD UREA NITROGEN 13 MG/DL (7-18); CHLORIDE 102 MEQ/L (98-107); GLOMERULAR FILTRATION RATE 103 ML/MIN (>89); POTASSIUM 3.3 MEQ/L (3.5-5.1); SODIUM (NA) 139 MEQ/L (136-145); TOTAL BILIRUBIN ADULT 6.4 MG/DL (0.2-1.0)
--- NOTE | 2016-07-30 07:55 | HHI.PR ---
Subjective Remarks Follow up abdominal pain. EGD scheduled for today. She is still having abdominal pain this morning. No nausea or vomiting. She reports that the abdominal pain improves after a bowel movement. Objective Vitals Vital Signs Date Time Temp Pulse Resp B/P Pulse Ox O2 Delivery O2 Flow Rate FiO2 07/30/16 04:00 99.0 75 18 154/86 98 07/30/16 00:00 98.7 78 18 150/88 95 07/29/16 20:00 99.2 82 18 157/93 97 07/29/16 20:00 88 07/29/16 16:30 98.3 93 18 160/84 98 07/29/16 12:30 99.2 87 18 165/89 97 07/29/16 12:21 74 18 152/74 99 07/29/16 11:28 71 20 158/77 96 Room Air 07/29/16 07:55 97.7 75 16 159/79 98 Room Air I/O 07/29/16 07/29/16 07/29/16 07/30/16 07/30/16 07/30/16 07:00 15:00 23:00 07:00 15:00 23:00 Intake Total 1087 ml Output Total 450 ml Balance -450 ml 1087 ml Intake Oral 240 ml IV Total 847 ml Output Urine Total 450 ml # Voids 2 2 Result Diagram: 07/28/16203207/30/16522 Imaging Last Impressions Cholangiopancreatography MRI 07/29/16 0000 Signed Impressions: Service Date/Time: July 19:06 - CONCLUSION: Slight ascites and large gallstone. K. Sam Levine MD Abdomen/Pelvis CT 07/28/162019 Signed Impressions: Service Date/Time: Thursday, July 28, 2016 21:42 - CONCLUSION: 1. Nonspecific thickening and enhancement of numerous loops of small bowel predominantly in the left abdomen. There is associated mild ascites in the abdomen and pelvis. Differential diagnosis includes enteritis or inflammatory bowel disease. No bowel obstruction. No free air. Jorge Cody MD Gall Bladder Ultrasound 07/28/16 0000 Signed Impressions: Service Date/Time: Thursday, July 28, 2016 23:17 - CONCLUSION: 1. Cholelithiasis without sonographic evidence to suggest acute cholecystitis. 2. Trace amount of ascites. Bert Nunes Jr., MD Objective Remarks General: No acute distress. Heart: Regular rate and rhythm. 2/6 systolic murmur. Lungs: Clear to auscultation bilaterally. No wheezes, rales, or rhonchi. Breathing is nonlabored. Abdomen: Soft, nondistended. Mild tenderness diffusely without rebound/guarding. Extremities: No lower extremity edema. Psych: Alert and oriented. Procedures None Urinary Catheter: No Vascular Central Line Catheter: No A/P Problem List: (1) Abdominal pain ICD Code: R10.9 Status: Acute (2) Hyperbilirubinemia ICD Code: E80.6 Status: Acute (3) Elevated LFTs ICD Code: R94.5 Status: Acute (4) Cardiac murmur ICD Code: R01.1 Status: Acute Assessment and Plan 1. Abdominal pain: CT of the abdomen/pelvis shows possible enteritis, inflammatory bowel disease. Appreciate GI recommendations. MRCP noted. EGD today. Nothing by mouth. Continue empiric antibiotics, Levaquin and Flagyl. Continue pain control. 2. Elevated LFTs, hyperbilirubinemia: Hepatitis panel pending. Appreciate GI recommendations. 3. Heart murmur: Check echocardiogram. 4. DVT prophylaxis: SCDs, YUE arias. Problem Qualifiers (1) Abdominal pain: Qualified Code: R10.84 - Generalized abdominal pain Angel Us MD Jul 30, 2016 07:55
[2016-07-30] MEDS: NS + KCL 20 MEQ INJ 1,000 ML IV SCH (08:25)
[2016-07-30] MEDS ORDERED: PROPOFOL 200 MG/20 ML AMP IV ONE (11:33)
--- NOTE | 2016-07-30 11:44 | GIPROC ---
[facility] [address] [facility]. [facility], [id number] EGD PROCEDURE REPORT EXAM DATE: 07/30/2016 PATIENT NAME: Kaykay Guo MR #: [id number] BIRTHDATE: 1960 ATTENDING: Rajni Hagen MD ORDER #: [id number] RANCH MANAGER: Adria Souza and Marilin Aly STATUS: inpatient INDICATIONS: The patient is a 56 yr old female here for an EGD due to epigastric abdominal pain and vomiting PROCEDURE PERFORMED: EGD w/ biopsy MEDICATIONS: None and Per Anesthesia. TOPICAL ANESTHETIC: CONSENT: The patient understands the risks and benefits of the procedure and understands that these risks include, but are not limited to: sedation, allergic reaction, infection, perforation and/or bleeding. Alternative means of evaluation and treatment include, among others: physical exam, x-rays, and/or surgical intervention. The patient elects to proceed with this endoscopic procedure. medical equipment was checked for proper function. Hand hygiene and appropriate measures for infection prevention was taken. After the risks, benefits and alternatives of the procedure were thoroughly explained, Informed consent was verified, confirmed and timeout was successfully executed by the treatment team. The patient was anesthetized with topical anesthesia and the Pentax [id number] endoscope was introduced through the mouth and advanced to the second portion of the duodenum. Retroflexed views revealed no abnormalities The gastroscope was then slowly withdrawn and removed. ESOPHAGUS: There was LA Class A esophagitis noted. STOMACH: There was erythematous moderate gastritis in the gastric antrum. A biopsy was performed using cold forceps. DUODENUM: The duodenal mucosa appeared normal in the bulb and second portion of the duodenum. ADVERSE EVENTS: There were no complications. IMPRESSIONS: 1. There was LA Class A esophagitis noted 2. There was erythematous gastritis in the gastric antrum; biopsy was performed 3. Normal duodenal mucosa in the bulb and second portion of the duodenum 4. Retroflexed views revealed no abnormalities RECOMMENDATIONS: 1. Await biopsy results. Biopsy results will not be ready for 7-10 days. If you don't hear from us in two weeks, call our office for biopsy results. 2. Anti-reflux regimen 3. Continue PPI 4. Avoid NSAIDS PATIENT CONDITION: stable DISPOSITION: Inpatient REPEAT EXAM: Return 1 year EGD pending biopsy results Rajni Hagen MD eSigned: Rajni Hagen MD 07/30/2016 11:43 AM cc: PATIENT NAME: aKykay Guo MR#: [id number]
--- NOTE | 2016-07-30 17:10 | RADRPT ---
EXAM DATE/TIME: 07/30/2016 13:41 [facility] COMPARISON: MRCP W/O CONTRAST, July 29, 2016, 19:06. CT ABDOMEN & PELVIS W CONTRAST, July 28, 2016, 21:42. INDICATIONS : Abdominal pain. DOSE: 4.1 mCi Tc99m Mebrofenin IV MEDICAL HISTORY : None SURGICAL HISTORY : None. ENCOUNTER: Initial ACUITY: 1 day PAIN SCALE: 2/10 LOCATION: Right upper quadrant TECHNIQUE: Following the intravenous administration of radiotracer, dynamic sequential images were performed wit h continuous acquisition. FINDINGS: There is no significant excretion of radiotracer from the liver, in this case felt to reflect high gr jeanette biliary obstruction. Patient does appear to have a high grade common hepatic duct stricture on re cent MRCP. CONCLUSION: High-grade biliary obstruction Fadi Santa MD on July 30, 2016 at 16:58 Board Certified Radiologist. This report was verified electronically.
[2016-07-30] MEDS ORDERED: ENALAPRILAT 1.25 MG/ML VIAL IV PUSH ONE (18:30)
[2016-07-30] MEDS: ONDANSETRON HCL 4 MG/2 ML VIAL IV PUSH PRN (19:32)
--- NOTE | 2016-07-30 20:08 | HHI.GIFU ---
GI Follow-up Note Consult Follow-up Subjective: Patient laying in bed comfortably, no new complaints except icterus Objective: PHYSICAL EXAMINATION: Vitals signs stable No fever HEENT: Pupils round and reactive to light; normocephalic; atraumatic; no jaundice. Throat is clear. NECK: Neck is supple, no JVD, no lymphadenopathy. CHEST: Chest is clear to auscultation and percussion. CARDIAC: Regular rate and rhythm with no murmur gallop or rubs. ABDOMEN: Soft, nondistended, nontender; no hepatosplenomegaly; bowel sounds are present in all four quadrants. EXTREMITIES: No clubbing, cyanosis, or edema. SKIN: Normal; no rash; no jaundice. MANAGER CLINIC: No focal deficits; alert and oriented times three. Available Data (labs, X- Rays, Procedues) : ASSESSMENT/PLAN: Received call from dr. lees after HIDA scan. Apparently there is a high grade stricture in her IHD on her MRCP. ERCP planned for tomorrow by Dr. Real It was a pleasure seeing Kaykay Guo. Thank you for this consult. Entered by: Rajni Maddox MD Jul 30, 2016 20:08
[2016-07-31] VITALS (10 sets, daily range): BP systolic 144–173; BP diastolic 74–98; PULSE 62–98; RESP 18–20; TEMP 98.4–99.4; O2SAT 93–98
[2016-07-31] MEDS: LEVOFLOXACIN 500 MG PREMIX INJ 100 ML IV SCH (00:36)
[2016-07-31] MEDS: metroNIDAZOLE 500 MG INJ 100 ML IV SCH ×3 (01:00→18:37)
[2016-07-31] MEDS: NS + KCL 20 MEQ INJ 1,000 ML IV SCH ×2 (04:00→13:34)
--- NOTE | 2016-07-31 10:01 | HHI.PR ---
Subjective Remarks Follow-up abdominal pain. Computer translation service utilized. Patient is still reporting some mild abdominal pain. No nausea or vomiting. Objective Vitals Vital Signs Date Time Temp Pulse Resp B/P Pulse Ox O2 Delivery O2 Flow Rate FiO2 07/31/16 08:00 98.4 76 18 144/84 98 07/31/16 08:00 68 07/31/16 07:00 72 07/31/16 04:00 99.4 82 18 146/76 97 07/31/16 03:00 74 07/31/16 02:00 73 07/31/16 01:00 86 07/31/16 00:00 99.4 73 18 144/75 97 07/31/16 00:00 73 07/30/16 23:00 86 07/30/16 22:00 75 07/30/16 21:00 86 07/30/16 20:00 99.4 88 17 151/82 94 07/30/16 20:00 78 07/30/16 19:00 88 07/30/16 16:24 86 07/30/16 16:23 99.0 90 16 172/88 96 07/30/16 12:30 98.7 75 16 152/74 96 07/30/16 12:02 73 16 139/67 96 07/30/16 11:52 70 16 139/67 96 07/30/16 11:42 97.5 87 16 127/65 95 I/O 07/30/16 07/30/16 07/30/16 07/31/16 07/31/16 07/31/16 07:00 15:00 23:00 07:00 15:00 23:00 Intake Total 1087 ml 100 ml 536 ml 1440 ml Output Total 400 ml Balance 1087 ml 100 ml 536 ml 1040 ml Intake Oral 240 ml 360 ml 240 ml IV Total 847 ml 176 ml 1200 ml Other 100 ml Output Urine Total 400 ml # Voids 2 4 # Bowel Movements 0 Result Diagram: 07/28/16203207/30/16 0523 Imaging Last Impressions Hepatobiliary Scan Nuclear Medicine 07/30/16 0000 Signed Impressions: Service Date/Time: Saturday, July 30, 2016 13:41 - CONCLUSION: High-grade biliary obstruction Fadi Santa MD Cholangiopancreatography MRI 07/29/16 0000 Signed Impressions: Service Date/Time: July 19:06 - CONCLUSION: Slight ascites and large gallstone. Marc Levine MD ADDENDUM: The common hepatic duct does appear to be significantly attenuated just below the level of the duct confluence. The appearance is worrisome for high-grade stricture. The length of the abnormality appears to be just under 2 cm. No discrete mass is identified. Fadi Santa MD Abdomen/Pelvis CT 07/28/162019 Signed Impressions: Service Date/Time: Thursday, July 28, 2016 21:42 - CONCLUSION: 1. Nonspecific thickening and enhancement of numerous loops of small bowel predominantly in the left abdomen. There is associated mild ascites in the abdomen and pelvis. Differential diagnosis includes enteritis or inflammatory bowel disease. No bowel obstruction. No free air. Jorge Cody MD Gall Bladder Ultrasound 07/28/16 0000 Signed Impressions: Service Date/Time: Thursday, July 28, 2016 23:17 - CONCLUSION: 1. Cholelithiasis without sonographic evidence to suggest acute cholecystitis. 2. Trace amount of ascites. Bert Nunes Jr., MD Objective Remarks General: No acute distress. Heart: Regular rate and rhythm. 2/6 systolic murmur. Lungs: Clear to auscultation bilaterally. No wheezes, rales, or rhonchi. Breathing is nonlabored. Abdomen: Soft, nondistended. Mild tenderness diffusely without rebound/guarding. Extremities: No lower extremity edema. Psych: Alert and oriented. Procedures None Urinary Catheter: No Vascular Central Line Catheter: No A/P Problem List: (1) Abdominal pain ICD Code: R10.9 Status: Acute (2) Hyperbilirubinemia ICD Code: E80.6 Status: Acute (3) Elevated LFTs ICD Code: R94.5 Status: Acute (4) Cardiac murmur ICD Code: R01.1 Status: Acute Assessment and Plan 1. Abdominal pain: CT of the abdomen/pelvis shows possible enteritis, inflammatory bowel disease. Appreciate GI recommendations. MRCP noted. EGD showed esophagitis, gastritis. HIDA scan abnormal. Continue empiric antibiotics , Levaquin and Flagyl. Continue pain control. ERCP to be done today per GI. 2. Elevated LFTs, hyperbilirubinemia: Hepatitis panel negative. Appreciate GI recommendations. 3. Heart murmur: Check echocardiogram. 4. DVT prophylaxis: YUE Corea. Problem Qualifiers (1) Abdominal pain: Qualified Code: R10.84 - Generalized abdominal pain Angel sU MD Jul 31, 2016 10:01
[2016-07-31] MEDS ORDERED: PHENYLEPH/NS 1000 MCG/10 ML SYR IV ONE (12:00)
--- NOTE | 2016-07-31 15:34 | EC ---
Study Study Date:07/31/2016 STUDY CONCLUSIONS SUMMARY - Left ventricle: The cavity size was normal. Wall thickness was normal. Systolic function was normal. The estimated ejection fraction was in the range of 60% to 65%. Wall motion was normal; there were no regional wall motion abnormalities. - Aortic valve: Valve area: 2.12cm^2 (Vmax). - Mitral valve: Mildly calcified annulus. - Tricuspid valve: Mild regurgitation. If LV function is below 40, please consider prescribing an ACEI or ARB or document rationale for non-use. PROCEDURE DATA STUDY STATUS: Elective. Procedure: Transthoracic echocardiography. Image quality was good. Scanning was performed from the parasternal, apical, and subcostal acoustic windows. Study completion: The patient tolerated the procedure well. Transthoracic echocardiography. M-mode, complete 2D, complete spectral Doppler, and color Doppler. Height: Height: 63in. Weight: Weight: 166.7lb. Body mass index: BMI: 29.6kg/m^2. Body surface area: BSA: 1.79m^2. Patient status: Inpatient. CARDIAC ANATOMY LEFT VENTRICLE: The cavity size was normal. Wall thickness was normal. Systolic function was normal. The estimated ejection fraction was in the range of 60% to 65%. Wall motion was normal; there were no regional wall motion abnormalities. AORTIC VALVE: Trileaflet; normal thickness leaflets. Doppler: Transvalvular velocity was within the normal range. There was no stenosis. No regurgitation. Valve area: 2.12cm^2 (Vmax). Indexed valve area: 1.18cm^2/m^2 (Vmax). Peak gradient: 16mm Hg (S). AORTA: Aortic root: The aortic root was normal in size. MITRAL VALVE: Mildly calcified annulus. Doppler: Transvalvular velocity was within the normal range. There was no evidence for stenosis. Trace to mild regurgitation. Peak gradient: 4mm Hg (D). LEFT ATRIUM: The atrium was normal in size. RIGHT VENTRICLE: The cavity size was normal. Wall thickness was normal. PULMONIC VALVE: Doppler: Transvalvular velocity was within the normal range. There was no evidence for stenosis. No regurgitation. TRICUSPID VALVE: Structurally normal valve. Doppler: Transvalvular velocity was within the normal range. Mild regurgitation. PULMONARY ARTERY: The main pulmonary artery was normal-sized. Systolic pressure was within the normal range. RIGHT ATRIUM: The atrium was normal in size. PERICARDIUM: There was no pericardial effusion. SYSTEMIC VEINS: Inferior vena cava: The vessel was normal in size. Patient weight: 166.7lb _Ejection fraction:_ 65-75% _Fractional shortening:_ 32% up to 5Kg 5-11.5Kg 11.6-22.9Kg 23-45Kg 45-57Kg Aortic Root 7-13 <17 13-22 17-27 17-27 LA diam 6-13 <23 24-38 33-47 37-40 RVID 10-17 7-15 7-15 7-18 8-17 LVIDd 12-22 <32 24-38 33-47 37-40 LVPW 2-4 3-6 5-7 6-8 7-8 IVS 2-4 3-6 5-7 6-8 7-8 BASIC MEASUREMENTS ADULT NORMAL Left ventricle LV internal dimension, ED, chordal *42.5 mm 43-52 level, PLAX LV internal dimension, ES, chordal 29.6 mm 23-38 level, PLAX Fractional shortening, chordal level, 30 % >29 PLAX LV posterior wall thickness, ED 9.87 mm IVS/LVPW ratio, ED 1.04 <1.3 Ventricular septum Septal thickness, ED 10.3 mm Aortic valve Leaflet separation 16 mm 15-26 BASIC MEASUREMENTS ADULT NORMAL Aortic valve Leaflet separation 16 mm 15-26 Aorta Root diameter, ED 24 mm 20-37 Left atrium Anterior-posterior dimension, ES 34 mm 19-40 Anterior-posterior dimension index, ES 1.9 cm/m^2 <2.2 LA/aortic root ratio 1.42 DOPPLER MEASUREMENTS ADULT NORMAL Main pulmonary artery Pressure, S 27 mm Hg =30 Aortic valve Peak velocity, S 197 cm/s Peak gradient, S 16 mm Hg Valve area, Vmax 2.12 cm^2 Valve area index, Vmax 1.18 cm^2/m^2 Mitral valve Peak E-wave velocity 104 cm/s Peak A-wave velocity 114 cm/s Deceleration time 201 ms 150-230 Peak gradient, D 4 mm Hg Peak E/A ratio 0.9 Maximal regurgitant velocity 286 cm/s Tricuspid valve Regurgitant peak velocity 248 cm/s Peak RV-RA gradient, S 25 mm Hg Maximal regurgitant velocity 248 cm/s Systemic veins Estimated CVP 10 mm Hg Right ventricle RV pressure, S *35 mm Hg <30 Pulmonic valve Peak velocity, S 140 cm/s LEGEND: Mean values are shown as u=mean value. Asterisk (*) lucas values outside specified normal range. Prepared and signed by Lucas Menezes [id number]
[2016-07-31] MEDS ORDERED: IOHEXOL 350 MG/ML 100 ML BTL (for RAD DIAG) OTHER ONE (17:39)
[2016-07-31] MEDS ORDERED: *morphine SULFATE 8 MG/ML PERIprocedure ONLY ONE (18:17)
--- NOTE | 2016-07-31 18:19 | HHI.GIFU ---
Subjective Remarks alert, jaundice, no pain Objective Vitals I&O Vital Signs Date Time Temp Pulse Resp B/P Pulse Ox O2 Delivery O2 Flow Rate FiO2 07/31/16 12:00 99.0 71 20 154/74 95 07/31/16 08:00 98.4 76 18 144/84 98 07/31/16 08:00 98.6 76 20 173/82 95 07/31/16 08:00 68 07/31/16 07:00 72 07/31/16 04:00 99.4 82 18 146/76 97 07/31/16 03:00 74 07/31/16 02:00 73 07/31/16 01:00 86 07/31/16 00:00 99.4 73 18 144/75 97 07/31/16 00:00 73 07/30/16 23:00 86 07/30/16 22:00 75 07/30/16 21:00 86 07/30/16 20:00 99.4 88 17 151/82 94 07/30/16 20:00 78 07/30/16 19:00 88 I/O 07/30/16 07/30/16 07/30/16 07/31/16 07/31/16 07/31/16 07:00 15:00 23:00 07:00 15:00 23:00 Intake Total 1087 ml 100 ml 536 ml 1440 ml Output Total 400 ml Balance 1087 ml 100 ml 536 ml 1040 ml Intake Oral 240 ml 360 ml 240 ml IV Total 847 ml 176 ml 1200 ml Other 100 ml Output Urine Total 400 ml # Voids 2 4 # Bowel Movements 0 Physical Exam HEENT: Pupils round and reactive to light; normocephalic; atraumatic; jaundice. Throat is clear. NECK: Neck is supple, no JVD, no lymphadenopathy. CHEST: Chest is clear to auscultation and percussion. CARDIAC: Regular rate and rhythm with no murmur gallop or rubs. ABDOMEN: Soft, nondistended, nontender; no hepatosplenomegaly; bowel sounds are present in all four quadrants. EXTREMITIES: No clubbing, cyanosis, or edema. SKIN: Normal; no rash; jaundice. 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 Assessment and Plan Plan ASSESSMENT: - elevated LFTs. ALT 88, AST 106, ALP 356, Tbili 5.9. Hep panel neg. Pt denies ETOH, drugs. MRI showed IHD dilation, ERCP 07/31 (today) showed intra hepatic duct dilation brushing was done and stent was placed. PLAN: - SARAHI - LFTs in - NPO - FU brushing Kaiden Real MD Jul 31, 2016 18:19
[2016-07-31] MEDS ORDERED: DO NOT ADM ANY ANTICOAGULANT DRUGS PRN (18:45)
--- NOTE | 2016-07-31 18:50 | RADRPT ---
EXAM DATE/TIME: 07/31/2016 17:21 [facility] COMPARISON: No previous studies available for comparison. INDICATIONS : Obstruction. FLUORO TIME: 3:01 minutes IMAGE COUNT: 10 CONTRAST: Instilled by Ordering Physician MEDICAL HISTORY : None. SURGICAL HISTORY : None. ENCOUNTER: Initial ACUITY: 1 day PAIN SCORE: Non-responsive. LOCATION: Bilateral abdomen. FINDINGS: An ERCP was performed by the ordering physician. The images demonstrate contrast in the common bile duct and biliary system. At the end of the procedu re an internal biliary stent was placed. The internal biliary stent appears to be in good position. CONCLUSION: ERCP as above. Sean Gamez MD on July 31, 2016 at 18:48 Board Certified Radiologist. This report was verified electronically.
[2016-07-31] MEDS ORDERED: PROPOFOL 200 MG/20 ML AMP IV ONE (19:00)
[2016-07-31] MEDS: HYDROmorphone HCL PF 1 MG/ML VIAL IV PUSH PRN (20:01)
[2016-07-31] MEDS: ONDANSETRON HCL 4 MG/2 ML VIAL IV PUSH PRN (20:32)
[2016-08-01] VITALS: BP 138/85; PULSE 98; RESP 16; TEMP 98.2; O2SAT 96
[2016-08-01] MEDS: metroNIDAZOLE 500 MG INJ 100 ML IV SCH ×3 (00:06→16:56)
[2016-08-01] MEDS: LEVOFLOXACIN 500 MG PREMIX INJ 100 ML IV SCH (00:06)
[2016-08-01 04:00] VITALS: BP 146/76; PULSE 86; RESP 16; TEMP 98.5; O2SAT 94
[2016-08-01 07:59] LABS: ALKALINE PHOSPHATASE 310 U/L (45-117); ALT (GPT) 80 U/L (10-53); ANION GAP 8 MEQ/L (5-15); AST (GOT) 92 U/L (15-37); BICARBONATE 25.4 MEQ/L (21.0-32.0); BLOOD UREA NITROGEN 13 MG/DL (7-18); CHLORIDE 106 MEQ/L (98-107); GLOMERULAR FILTRATION RATE 127 ML/MIN (>89); SODIUM (NA) 139 MEQ/L (136-145); TOTAL BILIRUBIN ADULT 4.3 MG/DL (0.2-1.0)
[2016-08-01 08:00] VITALS: BP 142/77; PULSE 85; RESP 20; TEMP 98; O2SAT 95
[2016-08-01] MEDS: NS + KCL 20 MEQ INJ 1,000 ML IV SCH ×3 (08:43→20:00)
[2016-08-01] MEDS ORDERED: BENZOCAINE 6 MG/MENTHOL 10 MG LOZENGE BUCCAL PRN (11:15)
--- NOTE | 2016-08-01 11:19 | HHI.PR ---
Subjective Remarks Follow up abdominal pain. Patient now reporting pain in her throat, worse with swallowing. Mild abdominal pain, better than yesterday. Objective Vitals Vital Signs Date Time Temp Pulse Resp B/P Pulse Ox O2 Delivery O2 Flow Rate FiO2 08/01/16 08:00 98.0 85 20 142/77 95 08/01/16 04:00 98.5 86 16 146/76 94 08/01/16 00:00 98.2 98 16 138/85 96 07/31/16 20:00 98.4 98 18 151/77 93 07/31/16 18:45 98.9 86 18 162/88 96 Nasal Cannula 2 07/31/16 18:30 83 17 163/92 94 Nasal Cannula 2 07/31/16 18:15 85 18 160/89 95 Nasal Cannula 2 07/31/16 18:09 98.8 91 15 171/92 96 Nasal Cannula 2 07/31/16 16:00 98.5 91 20 156/98 95 07/31/16 12:00 99.0 71 20 154/74 95 I/O 07/31/16 07/31/16 07/31/16 08/01/16 08/01/16 08/01/16 07:00 15:00 23:00 07:00 15:00 23:00 Intake Total 1440 ml 0 ml 600 ml 0 ml Output Total 400 ml 0 ml Balance 1040 ml 0 ml 600 ml 0 ml Intake Oral 240 ml 0 ml 0 ml IV Total 1200 ml Other 600 ml Output Urine Total 400 ml Estimated Blood Loss 0 ml # Voids 6 2 # Bowel Movements 0 Result Diagram: 07/28/16203208/01/16 0632 Imaging Last Impressions GI Procedure 07/31/16 0000 Signed Impressions: Service Date/Time: Sunday, July 31, 2016 17:21 - CONCLUSION: ERCP as above. Sean Gamez MD Hepatobiliary Scan Nuclear Medicine 07/30/16 0000 Signed Impressions: Service Date/Time: Saturday, July 30, 2016 13:41 - CONCLUSION: High-grade biliary obstruction Fadi Santa MD Cholangiopancreatography MRI 07/29/16 0000 Signed Impressions: Service Date/Time: July 19:06 - CONCLUSION: Slight ascites and large gallstone. KIngrid Levine MD ADDENDUM: The common hepatic duct does appear to be significantly attenuated just below the level of the duct confluence. The appearance is worrisome for high-grade stricture. The length of the abnormality appears to be just under 2 cm. No discrete mass is identified. Fadi Santa MD Abdomen/Pelvis CT 07/28/162019 Signed Impressions: Service Date/Time: Thursday, July 28, 2016 21:42 - CONCLUSION: 1. Nonspecific thickening and enhancement of numerous loops of small bowel predominantly in the left abdomen. There is associated mild ascites in the abdomen and pelvis. Differential diagnosis includes enteritis or inflammatory bowel disease. No bowel obstruction. No free air. Jorge Cody MD Gall Bladder Ultrasound 07/28/16 0000 Signed Impressions: Service Date/Time: Thursday, July 28, 2016 23:17 - CONCLUSION: 1. Cholelithiasis without sonographic evidence to suggest acute cholecystitis. 2. Trace amount of ascites. Bert Nunes Jr., MD Objective Remarks General: No acute distress. Heart: Regular rate and rhythm. 2/6 systolic murmur. Lungs: Clear to auscultation bilaterally. No wheezes, rales, or rhonchi. Breathing is nonlabored. Abdomen: Soft, nondistended. Mild tenderness diffusely without rebound/guarding. Extremities: No lower extremity edema. Psych: Alert and oriented. Procedures None Urinary Catheter: No Vascular Central Line Catheter: No A/P Problem List: (1) Abdominal pain ICD Code: R10.9 Status: Acute (2) Hyperbilirubinemia ICD Code: E80.6 Status: Acute (3) Elevated LFTs ICD Code: R94.5 Status: Acute (4) Cardiac murmur ICD Code: R01.1 Status: Acute Assessment and Plan 1. Abdominal pain: CT of the abdomen/pelvis shows possible enteritis, inflammatory bowel disease. Appreciate GI recommendations. MRCP noted. EGD showed esophagitis, gastritis. HIDA scan abnormal. Continue empiric antibiotics , Levaquin and Flagyl. Continue pain control. S/P ERCP with stent placement. 2. Elevated LFTs, hyperbilirubinemia: Hepatitis panel negative. Appreciate GI recommendations. 3. Heart murmur: Echocardiogram shows EF 60-65%, mild mitral calcification and regurgitation. 4. DVT prophylaxis: SCDs, YUE hose. 5. Pain with swallowing: Will add throat lozenges as needed. Problem Qualifiers (1) Abdominal pain: Qualified Code: R10.84 - Generalized abdominal pain Angel Us MD Aug 01, 2016 11:19
--- NOTE | 2016-08-01 14:29 | HHI.GIFU ---
Subjective Remarks Pt resting in bed, visiting with family [provider spoke beninese] She is asking for water. Denies n/v. Still has some left sided abdominal pain when she rolls over in bed. Objective Vitals I&O Vital Signs Date Time Temp Pulse Resp B/P Pulse Ox O2 Delivery O2 Flow Rate FiO2 08/01/16 08:00 98.0 85 20 142/77 95 08/01/16 04:00 98.5 86 16 146/76 94 08/01/16 00:00 98.2 98 16 138/85 96 07/31/16 20:00 98.4 98 18 151/77 93 07/31/16 18:45 98.9 86 18 162/88 96 Nasal Cannula 2 07/31/16 18:30 83 17 163/92 94 Nasal Cannula 2 07/31/16 18:15 85 18 160/89 95 Nasal Cannula 2 07/31/16 18:09 98.8 91 15 171/92 96 Nasal Cannula 2 07/31/16 16:00 98.5 91 20 156/98 95 I/O 07/31/16 07/31/16 07/31/16 08/01/16 08/01/16 08/01/16 07:00 15:00 23:00 07:00 15:00 23:00 Intake Total 1440 ml 0 ml 600 ml 0 ml Output Total 400 ml 0 ml Balance 1040 ml 0 ml 600 ml 0 ml Intake Oral 240 ml 0 ml 0 ml IV Total 1200 ml Other 600 ml Output Urine Total 400 ml Estimated Blood Loss 0 ml # Voids 6 2 # Bowel Movements 0 Laboratory Laboratory Tests Test 08/01/16 06:32 Sodium Level 139 Potassium Level 4.0 Chloride Level 106 Carbon Dioxide Level 25.4 Anion Gap 8 Blood Urea Nitrogen 13 Creatinine 0.50 Estimat Glomerular Filtration 127 Rate Random Glucose 77 Calcium Level 8.5 Total Bilirubin 4.3 Aspartate Amino Transf 92 (AST/SGOT) Alanine Aminotransferase 80 (ALT/SGPT) Alkaline Phosphatase 310 Total Protein 7.5 Albumin 2.6 Imaging Last Impressions GI Procedure 07/31/16 0000 Signed Impressions: Service Date/Time: Sunday, July 31, 2016 17:21 - CONCLUSION: ERCP as above. Sean Gamez MD Hepatobiliary Scan Nuclear Medicine 07/30/16 0000 Signed Impressions: Service Date/Time: Saturday, July 30, 2016 13:41 - CONCLUSION: High-grade biliary obstruction Fadi Santa MD Cholangiopancreatography MRI 07/29/16 Signed Impressions: Service Date/Time: July 19:06 - CONCLUSION: Slight ascites and large gallstone. Marc Levine MD ADDENDUM: The common hepatic duct does appear to be significantly attenuated just below the level of the duct confluence. The appearance is worrisome for high-grade stricture. The length of the abnormality appears to be just under 2 cm. No discrete mass is identified. Fadi Santa MD Abdomen/Pelvis CT 07/28/162019 Signed Impressions: Service Date/Time: Thursday, July 28, 2016 21:42 - CONCLUSION: 1. Nonspecific thickening and enhancement of numerous loops of small bowel predominantly in the left abdomen. There is associated mild ascites in the abdomen and pelvis. Differential diagnosis includes enteritis or inflammatory bowel disease. No bowel obstruction. No free air. Jorge Cody MD Gall Bladder Ultrasound 07/28/16 Signed Impressions: Service Date/Time: Thursday, July 28, 2016 23:17 - CONCLUSION: 1. Cholelithiasis without sonographic evidence to suggest acute cholecystitis. 2. Trace amount of ascites. Bert Nunes Jr., MD Physical Exam HEENT: EOMI; normocephalic; atraumatic; jaundiced. NECK: Neck is supple CHEST: Chest is clear to auscultation and percussion. CARDIAC: Regular rate and rhythm with no murmur gallop or rubs. ABDOMEN: Soft, nondistended, TTB left mid abdominal region; no hepatosplenomegaly; bowel sounds are present in all four quadrants. EXTREMITIES: No clubbing, cyanosis, or edema. SKIN: Normal; no rash; jaundiced. ORIENTOR: No focal deficits; alert and oriented times three. Assessment and Plan Plan ASSESSMENT: - abdominal pain, elevated LFTs. Improving ALT 80, AST 92, ALP 310, Tbili 4.3. Hep panel neg. Pt denies ETOH, drugs. MRI showed IHD dilation, s/p ERCP (yesterday) showed intra hepatic duct dilation brushing was done and stent was placed. PLAN: - SARAHI, full liquid to regular diet - LFTs in am - FU brushing Giselle Nunez Aug 01, 2016 14:29
[2016-08-01 20:00] VITALS: BP 144/75; PULSE 81; RESP 18; TEMP 98.7; O2SAT 93
[2016-08-01] MEDS: HYDROmorphone HCL PF 1 MG/ML VIAL IV PUSH PRN (20:15)
[2016-08-01] MEDS: ONDANSETRON HCL 4 MG/2 ML VIAL IV PUSH PRN (20:20)
[2016-08-02] VITALS (7 sets, daily range): BP systolic 119–170; BP diastolic 61–89; PULSE 73–96; RESP 16–18; TEMP 97.8–98.8; O2SAT 92–99
[2016-08-02] MEDS: metroNIDAZOLE 500 MG INJ 100 ML IV SCH ×3 (00:04→17:00)
[2016-08-02] MEDS: LEVOFLOXACIN 500 MG PREMIX INJ 100 ML IV SCH (00:04)
[2016-08-02] MEDS: NS + KCL 20 MEQ INJ 1,000 ML IV SCH ×2 (06:00→08:27)
[2016-08-02 07:46] LABS: ALT (GPT) 81 U/L (10-53); ANION GAP 10 MEQ/L (5-15); BLOOD UREA NITROGEN 12 MG/DL (7-18); CHLORIDE 105 MEQ/L (98-107); POTASSIUM 3.9 MEQ/L (3.5-5.1); SODIUM (NA) 141 MEQ/L (136-145)
[2016-08-02 07:48] LABS: ALKALINE PHOSPHATASE 291 U/L (45-117); AST (GOT) 93 U/L (15-37); GLOMERULAR FILTRATION RATE 112 ML/MIN (>89)
--- NOTE | 2016-08-02 10:36 | HHI.PR ---
Subjective Remarks Follow up abdominal pain, hyperbilirubinemia. Patient seen with Dr. Alexis for translation. Patient still having LLQ pain. No nausea/vomiting. Mild cough. Still with sore throat. Objective Vitals Vital Signs Date Time Temp Pulse Resp B/P Pulse Ox O2 Delivery O2 Flow Rate FiO2 08/02/16 08:00 98.3 77 18 140/83 94 08/02/16 04:00 98.3 82 18 143/89 95 08/02/16 00:00 98.5 73 18 139/71 93 08/01/16 20:00 98.7 81 18 144/75 93 I/O 08/01/16 08/01/16 08/01/16 08/02/16 08/02/16 08/02/16 07:00 15:00 23:00 07:00 15:00 23:00 Intake Total 0 ml 480 ml 240 ml Balance 0 ml 480 ml 240 ml Intake Oral 0 ml 480 ml 240 ml # Voids 2 1 1 # Bowel Movements 0 1 Result Diagram: 08/02/16 0620 Imaging Last Impressions GI Procedure 07/31/16 0000 Signed Impressions: Service Date/Time: Sunday, July 31, 2016 17:21 - CONCLUSION: ERCP as above. Sean Gamez MD Hepatobiliary Scan Nuclear Medicine 07/30/16 0000 Signed Impressions: Service Date/Time: Saturday, July 30, 2016 13:41 - CONCLUSION: High-grade biliary obstruction Fadi Santa MD Cholangiopancreatography MRI 07/29/16 0000 Signed Impressions: Service Date/Time: July 19:06 - CONCLUSION: Slight ascites and large gallstone. Marc Levine MD ADDENDUM: The common hepatic duct does appear to be significantly attenuated just below the level of the duct confluence. The appearance is worrisome for high-grade stricture. The length of the abnormality appears to be just under 2 cm. No discrete mass is identified. Fadi Santa MD Abdomen/Pelvis CT 07/28/162019 Signed Impressions: Service Date/Time: Thursday, July 28, 2016 21:42 - CONCLUSION: 1. Nonspecific thickening and enhancement of numerous loops of small bowel predominantly in the left abdomen. There is associated mild ascites in the abdomen and pelvis. Differential diagnosis includes enteritis or inflammatory bowel disease. No bowel obstruction. No free air. Jorge Cody MD Gall Bladder Ultrasound 07/28/16 0000 Signed Impressions: Service Date/Time: Thursday, July 28, 2016 23:17 - CONCLUSION: 1. Cholelithiasis without sonographic evidence to suggest acute cholecystitis. 2. Trace amount of ascites. Bert Nunes Jr., MD Objective Remarks General: No acute distress. Heart: Regular rate and rhythm. 2/6 systolic murmur. Lungs: Clear to auscultation bilaterally. No wheezes, rales, or rhonchi. Breathing is nonlabored. Abdomen: Soft, nondistended. Mild tenderness in LLQ without rebound/guarding. Extremities: No lower extremity edema. Psych: Alert and oriented. Procedures None Urinary Catheter: No Vascular Central Line Catheter: No A/P Problem List: (1) Abdominal pain ICD Code: R10.9 Status: Acute (2) Hyperbilirubinemia ICD Code: E80.6 Status: Acute (3) Elevated LFTs ICD Code: R94.5 Status: Acute (4) Cardiac murmur ICD Code: R01.1 Status: Acute Assessment and Plan 1. Abdominal pain: CT of the abdomen/pelvis shows possible enteritis, inflammatory bowel disease. Appreciate GI recommendations. MRCP noted. EGD showed esophagitis, gastritis. HIDA scan abnormal. Continue empiric antibiotics , Levaquin and Flagyl. Continue pain control. S/P ERCP with stent placement. Awaiting pathology/cytology. 2. Elevated LFTs, hyperbilirubinemia: Hepatitis panel negative. Appreciate GI recommendations. Bilirubin trending down. 3. Heart murmur: Echocardiogram shows EF 60-65%, mild mitral calcification and regurgitation. 4. DVT prophylaxis: SCDs, YUE hose. 5. Pain with swallowing: Throat lozenges as needed. Discharge Planning When cleared by GI. Problem Qualifiers (1) Abdominal pain: Qualified Code: R10.84 - Generalized abdominal pain Angel Us MD Aug 02, 2016 10:36
--- NOTE | 2016-08-02 14:14 | HHI.GIFU ---
Subjective Remarks Up in chair. Tolerating full liquids- would like this advanced. No n/v. Little bit of a sore throat. Mild epigastric discomfort- improved. Objective Vitals I&O Vital Signs Date Time Temp Pulse Resp B/P Pulse Ox O2 Delivery O2 Flow Rate FiO2 08/02/16 12:00 97.8 74 18 154/80 99 08/02/16 08:00 98.3 77 18 140/83 94 08/02/16 04:00 98.3 82 18 143/89 95 08/02/16 00:00 98.5 73 18 139/71 93 08/01/16 20:00 98.7 81 18 144/75 93 I/O 08/01/16 08/01/16 08/01/16 08/02/16 08/02/16 08/02/16 07:00 15:00 23:00 07:00 15:00 23:00 Intake Total 0 ml 480 ml 240 ml Balance 0 ml 480 ml 240 ml Intake Oral 0 ml 480 ml 240 ml # Voids 2 1 1 # Bowel Movements 0 1 Laboratory Laboratory Tests Test 08/02/16 06:20 Sodium Level 141 Potassium Level 3.9 Chloride Level 105 Carbon Dioxide Level 26.0 Anion Gap 10 Blood Urea Nitrogen 12 Creatinine 0.56 Estimat Glomerular Filtration 112 Rate Random Glucose 114 Calcium Level 8.7 Total Bilirubin 3.0 Aspartate Amino Transf 93 (AST/SGOT) Alanine Aminotransferase 81 (ALT/SGPT) Alkaline Phosphatase 291 Total Protein 7.7 Albumin 2.6 Imaging Last Impressions GI Procedure 07/31/16 0000 Signed Impressions: Service Date/Time: Sunday, July 31, 2016 17:21 - CONCLUSION: ERCP as above. Sean Gamez MD Hepatobiliary Scan Nuclear Medicine 07/30/16 0000 Signed Impressions: Service Date/Time: Saturday, July 30, 2016 13:41 - CONCLUSION: High-grade biliary obstruction Fadi Santa MD Cholangiopancreatography MRI 07/29/16 0000 Signed Impressions: Service Date/Time: July 19:06 - CONCLUSION: Slight ascites and large gallstone. Marc Levine MD ADDENDUM: The common hepatic duct does appear to be significantly attenuated just below the level of the duct confluence. The appearance is worrisome for high-grade stricture. The length of the abnormality appears to be just under 2 cm. No discrete mass is identified. Fadi Santa MD Abdomen/Pelvis CT 07/28/162019 Signed Impressions: Service Date/Time: Thursday, July 28, 2016 21:42 - CONCLUSION: 1. Nonspecific thickening and enhancement of numerous loops of small bowel predominantly in the left abdomen. There is associated mild ascites in the abdomen and pelvis. Differential diagnosis includes enteritis or inflammatory bowel disease. No bowel obstruction. No free air. Jorge Cody MD Gall Bladder Ultrasound 07/28/16 0000 Signed Impressions: Service Date/Time: Thursday, July 28, 2016 23:17 - CONCLUSION: 1. Cholelithiasis without sonographic evidence to suggest acute cholecystitis. 2. Trace amount of ascites. Bert Nunes Jr., MD Physical Exam HEENT: Normocephalic; atraumatic; jaundiced. NECK: Neck is supple CHEST: CTA CARDIAC: Regular rate and rhythm with no murmur gallop or rubs. ABDOMEN: Soft, nondistended, epigastric tenderness; no hepatosplenomegaly; bowel sounds are present in all four quadrants. EXTREMITIES: No clubbing, cyanosis, or edema. SKIN: Normal; no rash; jaundiced. 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 Assessment and Plan Plan ASSESSMENT: - High grade stricture of CBD. Abdomen/Pelvis CT (07/28/16)----> 1. Nonspecific thickening and enhancement of numerous loops of small bowel predominantly in the left abdomen. There is associated mild ascites in the abdomen and pelvis. Differential diagnosis includes enteritis or inflammatory bowel disease. No bowel obstruction. No free air. Gall Bladder Ultrasound (07/28/16)----> 1. Cholelithiasis without sonographic evidence to suggest acute cholecystitis. 2. Trace amount of ascites. MRCP (07/29/16)----> Slight ascites and large gallstone. ADDENDUM: The common hepatic duct does appear to be significantly attenuated just below the level of the duct confluence. The appearance is worrisome for high- grade stricture. The length of the abnormality appears to be just under 2 cm. No discrete mass is identified. HIDA (07/30/16)-----> High-grade biliary obstruction. S/P ERCP with brushings/stent placement (07/31/16)----> intra hepatic duct dilatation, s/p brushings, s/p stent placement. Clinically improving. LFTs improving. Tolerating Full liquids. Would like this advanced. - Abdominal pain. Improved. - Elevated LFTs, improved. PLAN: - Regular diet - Await pathology from brushings - Monitor labs - Rpt ERCP with stent removal/exchange in 3 months - Pt seen and examined by Dr. Real and myself and this note is written on his behalf Elena Lowery Aug 02, 2016 14:14
[2016-08-02] MEDS: HYDROmorphone HCL PF 1 MG/ML VIAL IV PUSH PRN ×2 (15:30→20:29)
[2016-08-03] MEDS: metroNIDAZOLE 500 MG INJ 100 ML IV SCH (01:27)
[2016-08-03] MEDS: LEVOFLOXACIN 500 MG PREMIX INJ 100 ML IV SCH (01:28)
[2016-08-03] MEDS: NS + KCL 20 MEQ INJ 1,000 ML IV SCH (01:32)
[2016-08-03] MEDS: HYDROmorphone HCL PF 1 MG/ML VIAL IV PUSH PRN (04:43)
[2016-08-03 04:55] VITALS: BP 147/71; PULSE 86; RESP 16; TEMP 98.3; O2SAT 92
[2016-08-03 08:00] VITALS: BP 148/82; PULSE 81; RESP 18; TEMP 98; O2SAT 95
[2016-08-03] MEDS ORDERED: HYDR-3516 PO (09:31)
[2016-08-03] MEDS ORDERED: LEVA500T PO (09:31)
[2016-08-03] MEDS ORDERED: METR-1 PO (09:31)
--- NOTE | 2016-08-03 09:31 | HHI.DCPOC ---
Discharge Care Plan Diagnosis: (1) Abdominal pain (2) Hyperbilirubinemia (3) Elevated LFTs (4) Cardiac murmur Goals to Promote Your Health * To prevent worsening of your condition and complications * To maintain your health at the optimal level Directions to Meet Your Goals Take your medications as prescribed Follow your dietary instruction Follow activity as directed Keep your appointments as scheduled Take your immunizations and boosters as scheduled If your symptoms worsen call your PCP, if no PCP go to Urgent Care Center or Emergency Room Smoking is Dangerous to Your Health. Avoid second hand smoke Call the 24-hour hour crisis hotline for domestic abuse at Angel Us MD Aug 03, 2016 09:31
--- NOTE | 2016-08-03 09:37 | HHI.DS ---
Discharge Summary Admission Date Jul 28, 2016 at 22:43 Discharge Date: Aug 03, 2016 Admitting Diagnosis hyperbilirubinemia, rule out obstructive jaundice, enteritis (1) Abdominal pain ICD Code: R10.9 (2) Hyperbilirubinemia ICD Code: E80.6 (3) Elevated LFTs ICD Code: R94.5 (4) Cardiac murmur ICD Code: R01.1 Procedures 07/30/16 EGD 07/31/16 ERCP Brief History - From Admission patient is a 56 y/o female , urdu speaking,with no significant past medical history who presented with abdominal pain. she says that she's had this pain for about a month. pain is more or less generalized although it's more pronounced in LLQ.the pain is intermittent. she says that the pain is worse with defecation. she denies any fever, chills, or diarrhea. she says that she's probably last some weight. CBC/BMP: 08/02/16 0620 Significant Findings Laboratory Tests Test 08/01/16 08/02/16 06:32 06:20 Total Bilirubin 4.3 MG/DL 3.0 MG/DL (0.2-1.0) (0.2-1.0) Aspartate Amino Transf 92 U/L (15-37) 93 U/L (15-37) (AST/SGOT) Alanine Aminotransferase 80 U/L (10-53) 81 U/L (10-53) (ALT/SGPT) Alkaline Phosphatase 310 U/L 291 U/L (45-117) (45-117) Albumin 2.6 GM/DL 2.6 GM/DL (3.4-5.0) (3.4-5.0) Random Glucose 114 MG/DL (74-106) Imaging Last Impressions GI Procedure 07/31/16 0000 Signed Impressions: Service Date/Time: Sunday, July 31, 2016 17:21 - CONCLUSION: ERCP as above. Sean Gamez MD Hepatobiliary Scan Nuclear Medicine 07/30/16 0000 Signed Impressions: Service Date/Time: Saturday, July 30, 2016 13:41 - CONCLUSION: High-grade biliary obstruction Fadi Santa MD Cholangiopancreatography MRI 07/29/16 Signed Impressions: Service Date/Time: July 19:06 - CONCLUSION: Slight ascites and large gallstone. Marc Levnie MD ADDENDUM: The common hepatic duct does appear to be significantly attenuated just below the level of the duct confluence. The appearance is worrisome for high-grade stricture. The length of the abnormality appears to be just under 2 cm. No discrete mass is identified. Fadi Santa MD Abdomen/Pelvis CT 07/28/162019 Signed Impressions: Service Date/Time: Thursday, July 28, 2016 21:42 - CONCLUSION: 1. Nonspecific thickening and enhancement of numerous loops of small bowel predominantly in the left abdomen. There is associated mild ascites in the abdomen and pelvis. Differential diagnosis includes enteritis or inflammatory bowel disease. No bowel obstruction. No free air. Jorge Cody MD Gall Bladder Ultrasound 07/28/16 Signed Impressions: Service Date/Time: Thursday, July 28, 2016 23:17 - CONCLUSION: 1. Cholelithiasis without sonographic evidence to suggest acute cholecystitis. 2. Trace amount of ascites. Bert Nunes Jr., MD PE at Discharge General: No acute distress. Heart: Regular rate and rhythm. 2/6 systolic murmur. Lungs: Clear to auscultation bilaterally. No wheezes, rales, or rhonchi. Breathing is nonlabored. Abdomen: Soft, nondistended. Mild tenderness in LLQ without rebound/guarding. Extremities: No lower extremity edema. Psych: Alert and oriented. Pt update on day of discharge Computer translation service utilized. The patient is still having intermittent abdominal pain. It was worse after eating, but resolved with flatulence. No nausea/vomiting. She reports pain with urination. Hospital Course The patient was admitted for evaluation of abdominal pain with elevated LFTs. Gastroenterology was consulted. EGD showed esophagitis and gastritis. She was continued on PPI. HIDA scan was abnormal. Patient underwent ERCP with intrahepatic duct stent placement. Cytology was obtained and at the time of discharge the pathology report is pending. Patient was advised to follow-up with the glass beveler for pathology results. The patient's diet was advanced and she tolerated regular diet. She was continued on Flagyl and Levaquin for enteritis. She was cleared for discharge by gastroenterology. Pt Condition on Discharge: Stable Discharge Disposition: Discharge Home Discharge Time: > 30 minutes Discharge Instructions DIET: Follow Instructions for: As Tolerated, No Restrictions Activities you can perform: Regular-No Restrictions Follow up Referrals: Gastroenterology - 1 Week with Kaiden Real MD PCP Follow-up - 2 Weeks New Medications: Hydrocodone-Acetaminophen (Hydrocodone-Acetaminophen) 5-325 mg Tab 1 TAB PO Q6H PRN PAIN #20 Ref 0 TAB Levofloxacin (Levaquin) 500 Mg Tab 500 MG PO DAILY Infection #2 Ref 0 TAB Metronidazole (Flagyl) 500 Mg Tab 500 MG PO TID Infection #10 Ref 0 TAB Pantoprazole (Pantoprazole) 40 Mg Tab 40 MG PO DAILY Reflux #30 Ref 0 TAB Angel Us MD Aug 03, 2016 09:37
[2016-08-03] MEDS ORDERED: PANT40TA3 PO (09:38)
--- NOTE | 2016-08-03 10:17 | MR ---
cc: ANNALISE CARLSON M.D. DATE: 07/31/2016 DATE OF : 1960 PROCEDURE ERCP with sphincterotomy and brushing of the hepatic duct and stent placement. INDICATION 56-year-old lady with jaundice. MRI showed possible hepatic duct stricture. PROCEDURE After informing the patient of procedure and complication consent was signed. The patient was placed on her abdomen in prone position. After intubation by anesthesia scope was placed in the mouth advanced under video guidance to the second portion of the duodenum. The ampulla was identified. There was some bile in the area. Cholangiogram was performed. The patient had what to look like stricture in the hepatic duct. This area was brushed after performing sphincterotomy and stent 12 cm 8.5 Barb[place] was placed without any immediate complication. FINDINGS 1. EGD normal exam limited 2. Pancreatic duct normal. 3. Ampulla normal. 4. Common bile duct normal. 5. Hepatic duct. 6. There is narrowing possible extrinsic tumor such as [place] tumor. 7. Brushing was done. 8. Stent was placed as above. RECOMMENDATIONS 1. N.p.o. For now. 2. If tomorrow she is doing well. She can start on a liquid diet, advance as tolerated. 3. LFT in the morning. 4. Follow up brushings. MD LUCÍA Leung/martínez /6:01 PM /10:14 AM
[2016-08-03 10:48] LABS: INDIRECT BILIRUBIN 0.8 MG/DL (0.0-0.8); TOTAL BILIRUBIN ADULT 2.5 MG/DL (0.2-1.0)
[2016-08-03 11:13] LABS: BLOOD, URINE TRACE (NEG); COMMENT (UR) CULT NOT INDICATED; CULTURE IF INDICATED CULT NOT INDICATED; GLUCOSE,URINE NEG (NEG); HYALINE CAST, URINE 1 /lpf (RARE); KETONE, URINE NEG (NEG); NITRITE,URINE NEG (NEG); PH, URINE 5.5 (5.0-8.5); URINE COLOR YELLOW (YELLW/STRAW)
[2016-08-03 12:00] VITALS: BP 154/73; PULSE 90; RESP 18; TEMP 98.5; O2SAT 97
--- NOTE | 2016-08-03 14:23 | HHI.GIFU ---
Subjective Remarks Up in chair. No distress. Mild epigastric tenderness. Going homing today. Objective Vitals I&O Vital Signs Date Time Temp Pulse Resp B/P Pulse Ox O2 Delivery O2 Flow Rate FiO2 08/03/16 12:00 98.5 90 18 154/73 97 08/03/16 08:00 98.0 81 18 148/82 95 08/03/16 04:55 98.3 86 16 147/71 92 08/02/16 23:55 98.7 96 16 170/86 92 08/02/16 21:12 98.8 86 16 159/80 95 08/02/16 16:00 98.7 85 18 119/61 92 I/O 08/02/16 08/02/16 08/02/16 08/03/16 08/03/16 08/03/16 07:00 15:00 23:00 07:00 15:00 23:00 Intake Total 240 ml 1080 ml 1280 ml 1040 ml Output Total 500 ml 500 ml Balance 240 ml 1080 ml 780 ml 540 ml Intake Oral 240 ml 1080 ml 480 ml 240 ml IV Total 800 ml 800 ml Output Urine Total 500 ml 500 ml # Voids 1 2 # Bowel Movements 1 0 0 0 Laboratory Laboratory Tests Test 08/03/16 08/03/16 08:36 10:30 Total Bilirubin 2.5 Direct Bilirubin 1.7 Indirect Bilirubin 0.8 Aspartate Amino Transf 101 (AST/SGOT) Alanine Aminotransferase 83 (ALT/SGPT) Alkaline Phosphatase 302 Total Protein 7.6 Albumin 2.6 Urine Color YELLOW Urine Turbidity CLEAR Urine pH 5.5 Urine Specific [place] 1.014 Urine Protein NEG Urine Glucose (UA) NEG Urine Ketones NEG Urine Occult Blood TRACE Urine Nitrite NEG Urine Bilirubin NEG Urine Urobilinogen LESS THAN 2.0 Urine Leukocyte Esterase NEG Urine RBC 2 Urine WBC LESS THAN 1 Urine Hyaline Casts 1 Microscopic Urinalysis Comment CULT NOT INDICATED Imaging Last Impressions GI Procedure 07/31/16 0000 Signed Impressions: Service Date/Time: Sunday, July 31, 2016 17:21 - CONCLUSION: ERCP as above. Sean Gamez MD Hepatobiliary Scan Nuclear Medicine 07/30/16 0000 Signed Impressions: Service Date/Time: Saturday, July 30, 2016 13:41 - CONCLUSION: High-grade biliary obstruction Fadi Santa MD Cholangiopancreatography MRI 07/29/16 0000 Signed Impressions: Service Date/Time: July 19:06 - CONCLUSION: Slight ascites and large gallstone. Marc Levine MD ADDENDUM: The common hepatic duct does appear to be significantly attenuated just below the level of the duct confluence. The appearance is worrisome for high-grade stricture. The length of the abnormality appears to be just under 2 cm. No discrete mass is identified. Fadi Santa MD Abdomen/Pelvis CT 07/28/162019 Signed Impressions: Service Date/Time: Thursday, July 28, 2016 21:42 - CONCLUSION: 1. Nonspecific thickening and enhancement of numerous loops of small bowel predominantly in the left abdomen. There is associated mild ascites in the abdomen and pelvis. Differential diagnosis includes enteritis or inflammatory bowel disease. No bowel obstruction. No free air. Jorge Cody MD Gall Bladder Ultrasound 07/28/16 Signed Impressions: Service Date/Time: Thursday, July 28, 2016 23:17 - CONCLUSION: 1. Cholelithiasis without sonographic evidence to suggest acute cholecystitis. 2. Trace amount of ascites. Bert Nunes Jr., MD Physical Exam HEENT: Normocephalic; atraumatic; jaundiced. NECK: Neck is supple CHEST: CTA CARDIAC: Regular rate and rhythm with no murmur gallop or rubs. ABDOMEN: Soft, nondistended, epigastric tenderness; no hepatosplenomegaly; bowel sounds are present in all four quadrants. EXTREMITIES: No clubbing, cyanosis, or edema. SKIN: Normal; no rash; jaundiced. DETECTIVE CHIEF: No focal deficits; alert and oriented times three. Assessment and Plan Plan ASSESSMENT: - High grade stricture of CBD. Abdomen/Pelvis CT (07/28/16)----> 1. Nonspecific thickening and enhancement of numerous loops of small bowel predominantly in the left abdomen. There is associated mild ascites in the abdomen and pelvis. Differential diagnosis includes enteritis or inflammatory bowel disease. No bowel obstruction. No free air. Gall Bladder Ultrasound (07/28/16)----> 1. Cholelithiasis without sonographic evidence to suggest acute cholecystitis. 2. Trace amount of ascites. MRCP (07/29/16)----> Slight ascites and large gallstone. ADDENDUM: The common hepatic duct does appear to be significantly attenuated just below the level of the duct confluence. The appearance is worrisome for high- grade stricture. The length of the abnormality appears to be just under 2 cm. No discrete mass is identified. HIDA (07/30/16)-----> High-grade biliary obstruction. S/P ERCP with brushings/stent placement (07/31/16)----> intra hepatic duct dilatation, s/p brushings, s/p stent placement. Clinically improving. LFTs improving. Tolerating diet. - Abdominal pain. Improved. - Elevated LFTs, improved. PLAN: - Okay to d/c home - FU NOLBERT[facility] 2 weeks - Follow bx from brushings - Rpt ERCP with stent removal/exchange in 3 months - Pt seen and examined by Dr. Real and myself and this note is written on his behalf Elena Lowery Aug 03, 2016 14:22
[2016-08-04 23:52] LABS: MITOCHONDRIAL ABS LESS THAN 20.0 U (())
== END 2016-08-03 14:18 | disposition home or self-care (01) | DRG 445 ==
LOC: NEPD 17:04 → NEDA 22:43 → NEDH 07-29 03:31 → HCIS 07-29 12:25 → N04B 07-31 08:43
PROVIDERS: ADMIT Family Medicine; ATTEND Family Medicine
PROC: 0DB68ZX Excision of Stomach, Via Natural or Artificial Opening Endoscopic, Diagnostic (ICD-10-PCS; 2016-07-30)
PROC: 0F798DZ Dilation of Common Bile Duct with Intraluminal Device, Via Natural or Artificial Opening Endoscopic (ICD-10-PCS; 2016-07-31)
PROC: 0FB98ZX Excision of Common Bile Duct, Via Natural or Artificial Opening Endoscopic, Diagnostic (ICD-10-PCS; principal; 2016-07-31 16:50)
DX: K83.1 Obstruction of bile duct (principal); R18.8 Other ascites; R01.1 Cardiac murmur, unspecified; I34.0 Nonrheumatic mitral (valve) insufficiency; J02.9 Acute pharyngitis, unspecified; K29.70 Gastritis, unspecified, without bleeding; K20.9 Esophagitis, unspecified
CPT/HCPCS: 74177; 74181; 74330; 76377; 76705; 78226; 80053; 80074; 80076; 80307; 81001; 82103; 82105; 82390; 82728; 83520; 83540; 83550; 83690; 85025; 85610; 86038; 86256; 88305; 88307; 88312; 93005; 93306; 96374; 96375; A9537; C1769; C2625; J1170; J1956; J2270; J2370; J2405; J3010; J3480; J7030; Q9967

== ENCOUNTER 2016-08-09 14:23 | Inpatient (IN) | payer MEDICAID ==
[~2016-08-09] VITALS: Ht 157.5 cm; Wt 66.4 kg
[~2016-08-09 14:23] MED LIST: HYDR-3516 PO; LEVA500T PO; METR-1 PO; PANT40TA3 PO
[2016-08-09 14:25] VITALS: BP 154/84; PULSE 130; RESP 20; TEMP 99.8; O2SAT 96
--- NOTE | 2016-08-09 16:02 | PD ---
HPI Chief Complaint: Abdominal Pain Time Seen by Provider: 16:02 Travel History International Travel<30 days: No Contact w/Intl Traveler<30days: No Traveled to known affect area: No History of Present Illness HPI 56-year-old female presents the emergency department 6 days status post stent placement for biliary obstruction, and hyperbilirubinemia. Patient states she was doing well until 2 days ago she's developed increasing right upper quadrant pain, tenderness, nausea, vomiting, and chills. 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 Patient states she's been moving her bowels normally, and denies urinary symptoms. Her pain is localized to the right upper quadrant and worse with eating, movement, or palpation to the area. Patient is allergic to penicillin. PFSH Past Medical History Cardiovascular Problems: Yes Genitourinary: No Musculoskeletal: No Neurologic: No Reproductive: No Respiratory: No Social History Alcohol Use: No Tobacco Use: No Substance Use: No Allergies-Medications (Allergen,Severity, Reaction): Coded Allergies: Penicillin (Verified Allergy, Unknown, 08/09/16) Reported Meds & Prescriptions Reported Meds & Active Scripts Active Pantoprazole (Pantoprazole Sodium) 40 Mg Tab 40 Mg PO DAILY Hydrocodone-Acetaminophen 5-325 mg Tab 1 Tab PO Q6H PRN Flagyl (Metronidazole) 500 Mg Tab 500 Mg PO TID Levaquin (Levofloxacin) 500 Mg Tab 500 Mg PO DAILY Review of Systems ROS Limitations: Clinical Condition Except as stated in HPI: all other systems reviewed are Neg General / Constitutional: Positive: Chills, No: Fever Eyes: No: Visual changes HENT: No: Headaches Cardiovascular: No: Chest Pain or Discomfort Respiratory: No: Shortness of Breath Gastrointestinal: Positive: Nausea, Vomiting, Abdominal Pain, Loss of Appetite , No: Diarrhea, Constipation Genitourinary: No: Urgency, Frequency, Dysuria, Hematuria Musculoskeletal: No: Pain Skin: No Rash Neurologic: No: Weakness Psychiatric: No: Depression Endocrine: No: Polydipsia Hematologic/Lymphatic: No: Easy Bruising Physical Exam Narrative GENERAL: Patient appears in mild to moderate distress. SKIN: Warm and dry. Mild pallor. Mild jaundice. Normal turgor. HEAD: Atraumatic. Normocephalic. EYES: Pupils equal and round. Mild scleral icterus. No injection or drainage. ENT: No nasal bleeding or discharge. Mucous membranes pink and moist. Pharynx is normal. NECK: Trachea midline. Neck is supple nontender. CARDIOVASCULAR: Regular rate and rhythm. No murmurs gallops or rubs. RESPIRATORY: No accessory muscle use. Clear to auscultation. Breath sounds equal bilaterally. GASTROINTESTINAL: Abdomen soft, moderate right upper quadrant tenderness extending across the liver edge., nondistended. MUSCULOSKELETAL: Extremities without clubbing, cyanosis, or edema. No obvious deformities. NEUROLOGICAL: Awake and alert. No obvious cranial nerve deficits. Motor grossly within normal limits. Five out of 5 muscle strength in the arms and legs. Normal speech. PSYCHIATRIC: Appropriate mood and affect; insight and judgment normal. Data Data Last Documented VS Vital Signs Date Time Temp Pulse Resp B/P Pulse Ox O2 Delivery O2 Flow Rate FiO2 08/09/16 14:25 99.8 130 20 154/84 96 Room Air Orders Complete Blood Count With Diff (08/09/16 16:03) Comprehensive Metabolic Panel (08/09/16 16:03) Lipase (08/09/16 16:03) Lactic Acid (08/09/16 16:03) Prothrombin Time / Inr (Pt) (08/09/16 16:03) Act Partial Throm Time (Ptt) (08/09/16 16:03) Urinalysis - C+S If Indicated (08/09/16 16:03) Iv Access Insert/Monitor (08/09/16 16:03) Ecg Monitoring (08/09/16 16:03) Oximetry (08/09/16 16:03) NPO (08/09/16 16:03) Morphine Inj (Morphine Inj) (08/09/16 16:15) Ondansetron Inj (Zofran Inj) (08/09/16 16:15) Sodium Chlor 0.9% 1000 Ml Inj (Ns 1000 M (08/09/16 16:03) Sodium Chloride 0.9% Flush (Ns Flush) (08/09/16 16:15) Ketorolac Inj (Toradol Inj) (08/09/16 16:15) Ct Abd/Pel W Iv Contrast(Rout) (08/09/16 ) Iohexol 350 Inj (Omnipaque 350 Inj) (08/09/16 17:50) Vancomycin Inj (Vancomycin Inj) (08/09/16 18:42) Aztreonam Inj (Azactam Inj) (08/09/16 18:42) Metronidazole 500 Mg Inj (Flagyl 500 Mg (08/09/16 18:42) Biliary Quantitative (Hida) (08/09/16 ) Blood Culture (08/09/16 19:04) Admit Order (Ed Use Only) (08/09/16 19:05) Labs Laboratory Tests Test 08/09/16 16:35 White Blood Count 14.1 TH/MM3 Red Blood Count 4.29 MIL/MM3 Hemoglobin 12.5 GM/DL Hematocrit 37.2 % Mean Corpuscular Volume 86.8 FL Mean Corpuscular Hemoglobin 29.1 PG Mean Corpuscular Hemoglobin 33.6 % Concent Red Cell Distribution Width 15.7 % Platelet Count 526 TH/MM3 Mean Platelet Volume 9.3 FL Neutrophils (%) (Auto) 84.7 % Lymphocytes (%) (Auto) 6.2 % Monocytes (%) (Auto) 8.6 % Eosinophils (%) (Auto) 0.3 % Basophils (%) (Auto) 0.2 % Neutrophils # (Auto) 12.0 TH/MM3 Lymphocytes # (Auto) 0.9 TH/MM3 Monocytes # (Auto) 1.2 TH/MM3 Eosinophils # (Auto) 0.0 TH/MM3 Basophils # (Auto) 0.0 TH/MM3 CBC Comment DIFF FINAL Differential Comment Prothrombin Time 15.0 SEC Prothromb Time International 1.3 RATIO Ratio Activated Partial 32.9 SEC Thromboplast Time Sodium Level 126 MEQ/L Potassium Level 4.0 MEQ/L Chloride Level 90 MEQ/L Carbon Dioxide Level 28.1 MEQ/L Anion Gap 8 MEQ/L Blood Urea Nitrogen 13 MG/DL Creatinine 0.81 MG/DL Estimat Glomerular Filtration 73 ML/MIN Rate Random Glucose 116 MG/DL Lactic Acid Level 1.2 mmol/L Calcium Level 8.6 MG/DL Total Bilirubin 1.6 MG/DL Aspartate Amino Transf 73 U/L (AST/SGOT) Alanine Aminotransferase 47 U/L (ALT/SGPT) Alkaline Phosphatase 560 U/L Total Protein 8.5 GM/DL Albumin 2.7 GM/DL Lipase 251 U/L [facility] Medical Decision Making Medical Screen Exam Complete: Yes Emergency Medical Condition: Yes Medical Record Reviewed: Yes Differential Diagnosis Hepatitis. Biliary tract disease. Pancreatitis. Failure of biliary tract stent. Recurrent obstructive Jaundice. Abdominal pain. Narrative Course Patient is medically stable at time of exam. Labs ordered including CBC, CMP, lactic acid, lipase, PT PTT and INR and urinalysis. CBC comes back showing leukocytosis of 14.1. CMP shows sodium 126, chloride of 90, normal BUN/creatinine. Total bilirubin 1.6. AST is elevated at 73, Altace 47, alkaline phosphatase is 560. Lipase is 251. CT of the abdomen/pelvis is ordered with IV contrast. Patient is discussed and seen with Dr. Dyson. CT shows Silastic biliary stent now present and appears properly positioned. Decreased intrahepatic biliary distention, now mild. No pancreatitis or other acute complication demonstrated. #2 increased ascites, moderate. Also mild to moderate body wall edema/anasarca developing. #3 mild enteritis/colitis possible versus reactive wall thickening from the ascites. In any event no obstruction demonstrated per radiologist. Call was placed to Dr. Whitehead, the rubber chemist on-call. She recommends admitting the patient for observation and HIDA scan and antibiotic treatment. 1845 hrs. call was placed to the hospitalist for admission. 1900 hrs. patient is discussed with Dr. Mejia who requests blood cultures prior to antibiotics, and agrees to admit the patient to observation. Diagnosis Primary Impression: Abdominal pain Qualified Code: R10.11 - Right upper quadrant abdominal pain Admitting Information Admitting Physician Requests: Observation Condition: Stable Suresh Blevins Aug 09, 2016 16:02
[2016-08-09] MEDS ORDERED: SODIUM CHLOR 0.9% 1000 ML INJ 1,000 ML IV SCH (16:03)
[2016-08-09] MEDS ORDERED: ONDANSETRON HCL 4 MG/2 ML VIAL IVP ONE (16:15)
[2016-08-09] MEDS ORDERED: KETOROLAC TROMETHAMINE 30 MG/ML (IVP) VIAL IVP ONE (16:15)
[2016-08-09] MEDS ORDERED: MORPHINE SULFATE 4 MG/ML INJ IV PUSH ONE (16:15)
[2016-08-09] MEDS ORDERED: SODIUM CHLORIDE 0.9% FLUSH 10 ML FLUSH IV FLUSH PRN (16:15)
[2016-08-09 16:53] LABS: BASOPHIL % 0.2 % (0.0-2.0); EOSINOPHIL % 0.3 % (0.0-4.0); HEMATOCRIT 37.2 % (35.0-46.0); HEMO FLAGS DIFF FINAL; LYMPH % 6.2 % (9.0-44.0); LYMPHOCYTE # 0.9 TH/MM3 (1.0-4.8); MEAN CELL VOLUME 86.8 FL (80.0-100.0); MEAN CORPUSCULAR HEMOGLOBIN 29.1 PG (27.0-34.0); MEAN CORPUSCULAR HGB CONC 33.6 % (32.0-36.0); MONO % 8.6 % (0.0-8.0); NEUT % 84.7 % (16.0-70.0); PLATELET COUNT 526 TH/MM3 (150-450); RED BLOOD COUNT 4.29 MIL/MM3 (4.00-5.30); RED CELL DISTRIBUTION WIDTH 15.7 % (11.6-17.2); WHITE BLOOD COUNT 14.1 TH/MM3 (4.0-11.0)
[2016-08-09 17:05] LABS: APTT (PATIENT) 32.9 SEC (24.3-30.1); INTERNATIONAL NORMALIZED RATIO 1.3 RATIO
[2016-08-09 17:12] LABS: ALT (GPT) 47 U/L (10-53); ANION GAP 8 MEQ/L (5-15); AST (GOT) 73 U/L (15-37); BICARBONATE 28.1 MEQ/L (21.0-32.0); BLOOD UREA NITROGEN 13 MG/DL (7-18); CHLORIDE 90 MEQ/L (98-107); GLOMERULAR FILTRATION RATE 73 ML/MIN (>89); SODIUM (NA) 126 MEQ/L (136-145)
[2016-08-09 17:15] LABS: ALKALINE PHOSPHATASE 560 U/L (45-117); TOTAL BILIRUBIN ADULT 1.6 MG/DL (0.2-1.0)
[2016-08-09] MEDS ORDERED: IOHEXOL 350 MG/ML 10 ML VIAL (for RAD DIAG) IV ONE (17:50)
--- NOTE | 2016-08-09 18:09 | RADRPT ---
EXAM DATE/TIME: 08/09/2016 17:46 [facility] COMPARISON: CT ABDOMEN & PELVIS W CONTRAST, July 28, 2016, 21:42. INDICATIONS : Abdomen pain past 3 days. S/P ERCP IV CONTRAST: 85 cc Omnipaque 350 (iohexol) IV ORAL CONTRAST: No oral contrast ingested. RADIATION DOSE: 13.56 CTDIvol (mGy) MEDICAL HISTORY : Cardiovascular disease. SURGICAL HISTORY : None. ENCOUNTER: Initial ACUITY: 3 days PAIN SCALE: 8/10 LOCATION: abdomen TECHNIQUE: Volumetric scanning of the abdomen and pelvis was performed. Using automated exposure control and ad justment of the mA and/or kV according to patient size, radiation dose was kept as low as reasonably achievable to obtain optimal diagnostic quality images. FINDINGS: Since the prior CT, a biliary stent has been placed. The the intrahepatic biliary distention is less substantial in the interim, now mild. However, there is worsening ascites, currently moderate. Nothin g organized/loculated. No focal hepatic lesion. Spleen, pancreas, adrenal glands and kidneys are all within normal limits. There is wall thickening of small and large bowel, mostly probably reactive from the ascites. However , a degree of colitis or enteritis not excludable, especially jejunum. No abscess, perforation or obs truction demonstrated. Mild to moderate body wall edema/anasarca now present. Tiny bilateral pleural effusions are now evide nt. There is trace atelectasis of the visualized lung bases. CONCLUSION: 1. Silastic biliary stent now present and appears appropriately positioned. Decreased intrahepatic bi liary distention, now mild. No pancreatitis or other acute complication demonstrated. 2. Increased ascites, moderate. Also mild to moderate body wall edema/anasarca developing. 3. Mild enteritis/colitis possible versus reactive wall thickening from the ascites. In any event, no obstruction demonstrated. Fadi Yin MD on August 09, 2016 at 18:03 Board Certified Radiologist. This report was verified electronically.
[2016-08-09] MEDS ORDERED: metroNIDAZOLE 500 MG INJ 100 ML IV STA (18:42)
[2016-08-09] MEDS ORDERED: AZTREONAM INJ 2,000 MG in SODIUM CHLORIDE 0.9% INJ 100 ML IV STA (18:42)
[2016-08-09] MEDS ORDERED: VANCOMYCIN INJ 1,000 MG in SODIUM CHLOR 0.9% 250 ML INJ 250 ML IV STA (18:42)
--- NOTE | 2016-08-09 19:15 | PD ---
Data Data Last Documented VS Vital Signs Date Time Temp Pulse Resp B/P Pulse Ox O2 Delivery O2 Flow Rate FiO2 08/09/16 14:25 99.8 130 20 154/84 96 Room Air Orders Complete Blood Count With Diff (08/09/16 16:03) Comprehensive Metabolic Panel (08/09/16 16:03) Lipase (08/09/16 16:03) Lactic Acid (08/09/16 16:03) Prothrombin Time / Inr (Pt) (08/09/16 16:03) Act Partial Throm Time (Ptt) (08/09/16 16:03) Urinalysis - C+S If Indicated (08/09/16 16:03) Iv Access Insert/Monitor (08/09/16 16:03) Ecg Monitoring (08/09/16 16:03) Oximetry (08/09/16 16:03) NPO (08/09/16 16:03) Morphine Inj (Morphine Inj) (08/09/16 16:15) Ondansetron Inj (Zofran Inj) (08/09/16 16:15) Sodium Chlor 0.9% 1000 Ml Inj (Ns 1000 M (08/09/16 16:03) Sodium Chloride 0.9% Flush (Ns Flush) (08/09/16 16:15) Ketorolac Inj (Toradol Inj) (08/09/16 16:15) Ct Abd/Pel W Iv Contrast(Rout) (08/09/16 ) Iohexol 350 Inj (Omnipaque 350 Inj) (08/09/16 17:50) Vancomycin Inj (Vancomycin Inj) (08/09/16 18:42) Aztreonam Inj (Azactam Inj) (08/09/16 18:42) Metronidazole 500 Mg Inj (Flagyl 500 Mg (08/09/16 18:42) Biliary Quantitative (Hida) (08/09/16 ) Blood Culture (08/09/16 19:04) Admit Order (Ed Use Only) (08/09/16 19:05) Labs Laboratory Tests Test 08/09/16 16:35 White Blood Count 14.1 TH/MM3 Red Blood Count 4.29 MIL/MM3 Hemoglobin 12.5 GM/DL Hematocrit 37.2 % Mean Corpuscular Volume 86.8 FL Mean Corpuscular Hemoglobin 29.1 PG Mean Corpuscular Hemoglobin 33.6 % Concent Red Cell Distribution Width 15.7 % Platelet Count 526 TH/MM3 Mean Platelet Volume 9.3 FL Neutrophils (%) (Auto) 84.7 % Lymphocytes (%) (Auto) 6.2 % Monocytes (%) (Auto) 8.6 % Eosinophils (%) (Auto) 0.3 % Basophils (%) (Auto) 0.2 % Neutrophils # (Auto) 12.0 TH/MM3 Lymphocytes # (Auto) 0.9 TH/MM3 Monocytes # (Auto) 1.2 TH/MM3 Eosinophils # (Auto) 0.0 TH/MM3 Basophils # (Auto) 0.0 TH/MM3 CBC Comment DIFF FINAL Differential Comment Prothrombin Time 15.0 SEC Prothromb Time International 1.3 RATIO Ratio Activated Partial 32.9 SEC Thromboplast Time Sodium Level 126 MEQ/L Potassium Level 4.0 MEQ/L Chloride Level 90 MEQ/L Carbon Dioxide Level 28.1 MEQ/L Anion Gap 8 MEQ/L Blood Urea Nitrogen 13 MG/DL Creatinine 0.81 MG/DL Estimat Glomerular Filtration 73 ML/MIN Rate Random Glucose 116 MG/DL Lactic Acid Level 1.2 mmol/L Calcium Level 8.6 MG/DL Total Bilirubin 1.6 MG/DL Aspartate Amino Transf 73 U/L (AST/SGOT) Alanine Aminotransferase 47 U/L (ALT/SGPT) Alkaline Phosphatase 560 U/L Total Protein 8.5 GM/DL Albumin 2.7 GM/DL Lipase 251 U/L [facility] Supervised Visit with EVELYN: Yes Narrative Course The history, exam, and medical decision-making in the associated mid-level provider note were completed with my assistance. I reviewed and agree with the findings presented. I attest that I had a [id number] encounter with the patient on the same day, and personally performed and documented my assessment and findings in the medical record. *My assessment and Findings: 56 year-old woman was recently admitted for abdominal pain and biliary obstruction, treated to some kind of extrinsic obstruction on the hepatic duct, treated with a stent, presents back now status post ERCP with worsening abdominal pain. Etiology is unclear. CT scan shows some ongoing ascites, stent appears to be in good position. We discussed with the GI doctor, we'll readmit the patient for further evaluation. Diagnosis Primary Impression: Abdominal pain Qualified Code: R10.11 - Right upper quadrant abdominal pain Condition: Stable Matt Dyson MD Aug 09, 2016 19:15
[2016-08-09 19:16] VITALS: BP 139/82; PULSE 104; RESP 18; TEMP 98.9; O2SAT 93
[2016-08-09 19:28] LABS: BACTERIA, URINE RARE /hpf; BLOOD, URINE NEG (NEG); COMMENT (UR) CULT NOT INDICATED; CULTURE IF INDICATED CULT NOT INDICATED; GLUCOSE,URINE NEG (NEG); HYALINE CAST, URINE 1 /lpf (RARE); KETONE, URINE NEG (NEG); MUCUS URINE FEW /lpf (OCC); NITRITE,URINE NEG (NEG); PH, URINE 5.5 (5.0-8.5); SQUAMOUS EPITHELIAL CELL URINE 1 /hpf (0-5); URINE COLOR YELLOW (YELLW/STRAW)
[2016-08-09] MEDS ORDERED: NALOXONE HCL 0.4 MG/ML AMP IV PRN (20:45)
[2016-08-09] MEDS: SODIUM CHLORIDE 0.9% FLUSH 10 ML FLUSH IV FLUSH SCH (21:58)
--- NOTE | 2016-08-09 23:35 | RADRPT ---
EXAM DATE/TIME: 08/09/2016 20:50 This report includes an Addendum and supersedes previous reports for this exam. [facility] COMPARISON: CT ABDOMEN & PELVIS W CONTRAST, August 09, 2016, 17:46. INDICATIONS : Right upper quadrant pain, nausea and vomiting for 2 days. DOSE: 4 mCi Tc99m Mebrofenin IV MEDICAL HISTORY : None SURGICAL HISTORY : Biliary stent placed. ENCOUNTER: Initial ACUITY: 2 days PAIN SCALE: 2/10 LOCATION: Right upper quadrant TECHNIQUE: Following the intravenous administration of radiotracer, dynamic sequential images were performed wit h continuous acquisition. FINDINGS: HEPATIC KINETICS: There is prompt uptake of radiotracer in the liver. No focal defects are seen. There is normal rate of washout from the hepatic parenchyma. BILIARY CLEARANCE: Activity is first seen in the extrahepatic biliary system at 25 minutes. There is normal excretion i nto the small bowel. GALLBLADDER: Activity is not identified in the gallbladder. Delayed images will be obtained. CT from the same day did not show any gallbladder wall thickening or evidence to suggest acute cholecystitis BILIARY ENTRIC REFLUX: None observed. CONCLUSION: Nonvisualization of the gallbladder however the patient does have a stent in place. I reviewed the CT scan from the same day which failed to demonstrate any obvious gallbladder wall thickening. Delayed images of the gallbladder will be performed. Matt Tovar MD on August 09, 2016 at 23:32 Board Certified Radiologist. This report was verified electronically. ADDENDUM: COMPARISON: BILIARY SCAN (HIDA), July 30, 2016, 13:41. A delayed image in anterior and right lateral projection was performed at 16 hours. There is no acti vity seen within the lumen of gallbladder. Since the patient has an indwelling biliary stent, absenc e of gallbladder visualization is nonpredictive with respect to cystic duct obstruction. Bert Brandon MD on August 10, 2016 at 13:35 Board Certified Radiologist. This report was verified electronically.
--- NOTE | 2016-08-09 23:48 | HHI.HP ---
[facility] No Primary Care Physician Admission Diagnosis Right Upper Abd pain Diagnoses: Chief Complaint: Vomiting, abdominal pain Travel History International Travel<30 Days: No Contact w/Intl Traveler <30 Da: No Traveled to Known Affected Are: No History of Present Illness History from patient with principal statistical programmer at the bedside and patient's brother at the bedside. Patient reported that she came to the hospital because she was having continued abdominal pain for the past 2 days. She also noted her abdominal size to be getting bigger. She reports she was not able to eat much because she feels full easily. She did vomit once today. No black color vomit or red color vomit. Denies any blood in her urine. However reports of severe pain when she urinates as well. No flank pain. But does have generalized back pains. Patient also reports of subjective cold and chills at home. On review of records, patient was recently here for similar symptoms it was time she did have ERCP with biliary stent placement. In the emergency room, CT imaging studies revealed the stent to be in correct position. Her case was discussed with the GI doctor in ER and HIDA scan was also ordered as well. Apart from the above, patient denies any chest pain/shortness of breath/ syncopal episodes. She lives by herself. Denies any recent falls. 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 Looks chronically ill. SKIN: No rashes, ecchymoses or lesions. Cool and dry. HEAD: Atraumatic. Normocephalic. No temporal or scalp tenderness. EYES:No scleral icterus. No injection or drainage. ENT: Nose without bleeding, purulent drainage or septal hematoma. . Airway patent. NECK: Trachea midline. No JVD CARDIOVASCULAR: Regular rate and rhythm without murmurs, gallops, or rubs. RESPIRATORY: Decreased air entry bilaterally. No wheezes, rales, or rhonchi. GASTROINTESTINAL: Abdomen soft, non-tender, nondistended. No guarding. MUSCULOSKELETAL: Extremities without clubbing, cyanosis, or edema. No calf tenderness. NEUROLOGICAL: Awake and alert. Motor and sensory grossly within normal limits. Normal speech. Laboratory Laboratory Tests Test 08/09/16 08/09/16 16:35 19:12 White Blood Count 14.1 Red Blood Count 4.29 Hemoglobin 12.5 Hematocrit 37.2 Mean Corpuscular Volume 86.8 Mean Corpuscular Hemoglobin 29.1 Mean Corpuscular Hemoglobin 33.6 Concent Red Cell Distribution Width 15.7 Platelet Count 526 Mean Platelet Volume 9.3 Neutrophils (%) (Auto) 84.7 Lymphocytes (%) (Auto) 6.2 Monocytes (%) (Auto) 8.6 Eosinophils (%) (Auto) 0.3 Basophils (%) (Auto) 0.2 Neutrophils # (Auto) 12.0 Lymphocytes # (Auto) 0.9 Monocytes # (Auto) 1.2 Eosinophils # (Auto) 0.0 Basophils # (Auto) 0.0 CBC Comment DIFF FINAL Differential Comment Prothrombin Time 15.0 Prothromb Time International 1.3 Ratio Activated Partial 32.9 Thromboplast Time Sodium Level 126 Potassium Level 4.0 Chloride Level 90 Carbon Dioxide Level 28.1 Anion Gap 8 Blood Urea Nitrogen 13 Creatinine 0.81 Estimat Glomerular Filtration 73 Rate Random Glucose 116 Lactic Acid Level 1.2 Calcium Level 8.6 Total Bilirubin 1.6 Aspartate Amino Transf 73 (AST/SGOT) Alanine Aminotransferase 47 (ALT/SGPT) Alkaline Phosphatase 560 Total Protein 8.5 Albumin 2.7 Lipase 251 Urine Color YELLOW Urine Turbidity CLEAR Urine pH 5.5 Urine Specific [place] 1.021 Urine Protein NEG Urine Glucose (UA) NEG Urine Ketones NEG Urine Occult Blood NEG Urine Nitrite NEG Urine Bilirubin NEG Urine Urobilinogen LESS THAN 2.0 Urine Leukocyte Esterase SMALL Urine RBC LESS THAN 1 Urine WBC 4 Urine Squamous Epithelial 1 Cells Urine Bacteria RARE Urine Hyaline Casts 1 Urine Mucus FEW Microscopic Urinalysis Comment CULT NOT INDICATED Date/Time Procedure Status Source Growth 08/09/16 20:05 Aerobic Blood Culture Received Blood Peripheral Pending 08/09/16 20:05 Anaerobic Blood Culture Received Blood Peripheral Pending Result Diagram: 08/09/16 1635 08/09/16 1635 Imaging Last 48 hours Impressions Hepatobiliary Scan Nuclear Medicine 08/09/16 0000 Signed Impressions: Service Date/Time: Tuesday, August 09, 2016 20:50 - CONCLUSION: Nonvisualization of the gallbladder however the patient does have a stent in place. I reviewed the CT scan from the same day which failed to demonstrate any obvious gallbladder wall thickening. Delayed images of the gallbladder will be performed. Matt Tovar MD Abdomen/Pelvis CT 08/09/16 0000 Signed Impressions: Service Date/Time: Tuesday, August 09, 2016 17:46 - CONCLUSION: 1. Silastic biliary stent now present and appears appropriately positioned. Decreased intrahepatic biliary distention, now mild. No pancreatitis or other acute complication demonstrated. 2. Increased ascites, moderate. Also mild to moderate body wall edema/anasarca developing. 3. Mild enteritis/colitis possible versus reactive wall thickening from the ascites. In any event, no obstruction demonstrated. Fadi Yin MD Assessment and Plan Problem List: (1) Abdominal pain ICD Code: R10.9 Status: Acute Assessment and Plan Impression: Symptomatic ascites Possible SBP with developing colitis Leukocytosis with left shift Hyponatremia Leukocytosis with left shiftlikely from dehydration. Plan: Ciprofloxacin 400 mg IV every 12 hours Flagyl 500 mg IV every 6 hours. Would consider paracenteses if okay with GI service. HIDA final report pending. Will follow up GI recommendations. Pain control. DVT prophylaxiswith Lovenox Discussed Condition With patient, ER MD, patient's brother Problem Qualifiers (1) Abdominal pain: Qualified Code: R10.11 - Right upper quadrant abdominal pain Juan Mejia MD Aug 09, 2016 23:48
[2016-08-10] VITALS (8 sets, daily range): BP systolic 127–149; BP diastolic 73–88; PULSE 86–105; RESP 14–20; TEMP 98.1–99.2; O2SAT 92–96
[2016-08-10] MEDS: HYDROmorphone HCL PF 1 MG/ML VIAL IV PUSH PRN ×3 (00:16→21:53)
[2016-08-10] MEDS: CIPROFLOXACIN 400 MG PREMIX 200 ML IV SCH ×2 (04:50→17:26)
[2016-08-10] MEDS: metroNIDAZOLE 500 MG INJ 100 ML IV SCH ×4 (06:10→23:13)
[2016-08-10] MEDS ORDERED: MORPHINE SULFATE 4 MG/ML INJ IV PUSH PRN (08:00)
[2016-08-10] MEDS: PANTOPRAZOLE SOD 40 MG DELAYED RELEASE TAB PO SCH (09:00)
[2016-08-10] MEDS: SODIUM CHLORIDE 0.9% FLUSH 10 ML FLUSH IV FLUSH SCH ×2 (09:00→21:00)
[2016-08-10] MEDS: SODIUM CHLOR 0.9% 1000 ML INJ 1,000 ML IV SCH (11:17)
[2016-08-10 11:24] LABS: AUTOMATED NEUTROPHIL # 6.6 TH/MM3 (1.8-7.7); BASOPHIL % 0.3 % (0.0-2.0); EOSINOPHIL # 0.1 TH/MM3 (0-0.4); EOSINOPHIL % 1.3 % (0.0-4.0); HEMATOCRIT 33.1 % (35.0-46.0); HEMO FLAGS DIFF FINAL; LYMPH % 7.6 % (9.0-44.0); LYMPHOCYTE # 0.6 TH/MM3 (1.0-4.8); MEAN CELL VOLUME 86.8 FL (80.0-100.0); MEAN CORPUSCULAR HEMOGLOBIN 29.5 PG (27.0-34.0); MEAN CORPUSCULAR HGB CONC 33.9 % (32.0-36.0); MONO % 10.2 % (0.0-8.0); NEUT % 80.6 % (16.0-70.0); PLATELET COUNT 474 TH/MM3 (150-450); RED BLOOD COUNT 3.82 MIL/MM3 (4.00-5.30); RED CELL DISTRIBUTION WIDTH 15.6 % (11.6-17.2); WHITE BLOOD COUNT 8.2 TH/MM3 (4.0-11.0)
[2016-08-10 11:59] LABS: ALKALINE PHOSPHATASE 401 U/L (45-117); ALT (GPT) 34 U/L (10-53); ANION GAP 10 MEQ/L (5-15); AST (GOT) 34 U/L (15-37); BICARBONATE 26.6 MEQ/L (21.0-32.0); BLOOD UREA NITROGEN 12 MG/DL (7-18); CHLORIDE 93 MEQ/L (98-107); GLOMERULAR FILTRATION RATE 96 ML/MIN (>89); POTASSIUM 3.7 MEQ/L (3.5-5.1); SODIUM (NA) 130 MEQ/L (136-145); TOTAL BILIRUBIN ADULT 1.2 MG/DL (0.2-1.0)
--- NOTE | 2016-08-10 12:28 | PD.CONS ---
HPI History of Present Illness This is a 56 year old who was recently hospitalized for biliary obstruction secondary to high grade stricture of the common bile duct. During her previous hospitalization, she was evaluated with Abdomen/Pelvis CT (07/28/16)----> 1. Nonspecific thickening and enhancement of numerous loops of small bowel predominantly in the left abdomen. There is associated mild ascites in the abdomen and pelvis. Differential diagnosis includes enteritis or inflammatory bowel disease. No bowel obstruction. No free air. Gall Bladder Ultrasound ()----> 1. Cholelithiasis without sonographic evidence to suggest acute cholecystitis. 2. Trace amount of ascites. MRCP (07/29/16)----> Slight ascites and large gallstone. ADDENDUM: The common hepatic duct does appear to be significantly attenuated just below the level of the duct confluence. The appearance is worrisome for high-grade stricture. The length of the abnormality appears to be just under 2 cm. No discrete mass is identified. HIDA (07/30/16)--- --> High-grade biliary obstruction. She then went for ERCP with brushings/stent placement (07/31/16)----> intra hepatic duct dilatation, s/p brushings, s/p stent placement. She was discharged home on 08/03/16 with instructions to follow up in the office in 2 weeks for cytology results. Her pathology revealed rare atypical cells present in the background of numerous glandular epithelial cells , malignancy cannot be excluded. She now presents to the hospital with ongoing abdoiminal pain x 2 days, decreased appetite, abdominal swelling, early satiety , nausea, vomiting. Abdomen/Pelvis CT (08/09/16)----> 1. Silastic biliary stent now present and appears appropriately positioned. Decreased intrahepatic biliary distention, now mild. No pancreatitis or other acute complication demonstrated. 2. Increased ascites, moderate. Also mild to moderate body wall edema/anasarca developing. 3. Mild enteritis/colitis possible versus reactive wall thickening from the ascites. In any event, no obstruction demonstrated. HIDA (08/09/16)-----> Nonvisualization of the gallbladder however the patient does have a stent in place. I reviewed the CT scan from the same day which failed to demonstrate any obvious gallbladder wall thickening. Delayed images of the gallbladder will be performed. She reports that she did feel better at discharge, but her pain never completely subsided. She has had decreased appetite, nausea, and early satiety since her discharge. She then started having abdominal pain with fevers and chills x 3 days. She is not able to describe the pain or identify aggravating or alleviating factors. The pain is diffuse and seems to be related to her abdominal swelling. She denies diarrhea , but states she has had 2 loose stools this am. Her family reports that she has not been eating or getting up and moving around for the past 3 days and therefore she came back to the ER. (Elena Lowery) PFSH Past Medical History Recent hospitalization for biliary obstruction/high-grade CBD stricture Past Surgical History ERCP with brushings/stent placement (Elena Lowery) Coded Allergies: Penicillin (Verified Allergy, Unknown, 08/09/16) Medications Allergies Coded Allergies Type Severity Reaction Last Updated Verified Penicillin Allergy Unknown 08/09/16 Yes Active Scripts Medications Dose Route/Sig Days Date Category Pantoprazole (Pantoprazole Sodium) 40 Mg Tab 40 Mg PO DAILY 08/03/16 Rx Hydrocodone-Acetaminophen 5-325 mg Tab 1 Tab PO Q6H PRN 08/03/16 Rx Family History Denies Social History No use of tobacco, etoh, illicit drug use. (Elena Lowery) Review of Systems Constitutional: COMPLAINS OF: Fatigue, Fever, Weight gain, Chills, Change in appetite Respiratory: DENIES: Cough, Shortness of breath Cardiovascular: DENIES: Chest pain Gastrointestinal: COMPLAINS OF: Abdominal pain, Nausea, Anorexia, DENIES: Black stools, Bloody stools, Constipation, Diarrhea Musculoskeletal: COMPLAINS OF: Back pain Hematologic/lymphatic: DENIES: Bruising Neurologic: DENIES: Headache Psychiatric: DENIES: Confusion (Elena Lowery) GI Exam Vitals I&O Vital Signs Date Time Temp Pulse Resp B/P Pulse Ox O2 Delivery O2 Flow Rate FiO2 08/10/16 11:03 98.4 86 16 139/79 96 08/10/16 08:15 98.4 90 16 132/74 95 08/10/16 06:39 98.6 87 18 127/75 95 08/10/16 00:34 99.2 105 18 136/73 92 08/09/16 19:16 98.9 104 18 139/82 93 Room Air 08/09/16 14:25 99.8 130 20 154/84 96 Room Air Imaging Last Impressions Hepatobiliary Scan Nuclear Medicine 08/09/16 0000 Signed Impressions: Service Date/Time: Tuesday, August 09, 2016 20:50 - CONCLUSION: Nonvisualization of the gallbladder however the patient does have a stent in place. I reviewed the CT scan from the same day which failed to demonstrate any obvious gallbladder wall thickening. Delayed images of the gallbladder will be performed. Matt Tovar MD Abdomen/Pelvis CT 08/09/16 0000 Signed Impressions: Service Date/Time: Tuesday, August 09, 2016 17:46 - CONCLUSION: 1. Silastic biliary stent now present and appears appropriately positioned. Decreased intrahepatic biliary distention, now mild. No pancreatitis or other acute complication demonstrated. 2. Increased ascites, moderate. Also mild to moderate body wall edema/anasarca developing. 3. Mild enteritis/colitis possible versus reactive wall thickening from the ascites. In any event, no obstruction demonstrated. Fadi Yin MD Laboratory Test 08/09/16 08/09/16 08/10/16 16:35 19:12 10:37 White Blood Count 14.1 TH/MM3 8.2 TH/MM3 Red Blood Count 4.29 MIL/MM3 3.82 MIL/MM3 Hemoglobin 12.5 GM/DL 11.2 GM/DL Hematocrit 37.2 % 33.1 % Mean Corpuscular Volume 86.8 FL 86.8 FL Mean Corpuscular Hemoglobin 29.1 PG 29.5 PG Mean Corpuscular Hemoglobin 33.6 % 33.9 % Concent Red Cell Distribution Width 15.7 % 15.6 % Platelet Count 526 TH/MM3 474 TH/MM3 Mean Platelet Volume 9.3 FL 9.7 FL Neutrophils (%) (Auto) 84.7 % 80.6 % Lymphocytes (%) (Auto) 6.2 % 7.6 % Monocytes (%) (Auto) 8.6 % 10.2 % Eosinophils (%) (Auto) 0.3 % 1.3 % Basophils (%) (Auto) 0.2 % 0.3 % Neutrophils # (Auto) 12.0 TH/MM3 6.6 TH/MM3 Lymphocytes # (Auto) 0.9 TH/MM3 0.6 TH/MM3 Monocytes # (Auto) 1.2 TH/MM3 0.8 TH/MM3 Eosinophils # (Auto) 0.0 TH/MM3 0.1 TH/MM3 Basophils # (Auto) 0.0 TH/MM3 0.0 TH/MM3 CBC Comment DIFF FINAL DIFF FINAL Differential Comment Prothrombin Time 15.0 SEC Prothromb Time International 1.3 RATIO Ratio Activated Partial 32.9 SEC Thromboplast Time Sodium Level 126 MEQ/L 130 MEQ/L Potassium Level 4.0 MEQ/L 3.7 MEQ/L Chloride Level 90 MEQ/L 93 MEQ/L Carbon Dioxide Level 28.1 MEQ/L 26.6 MEQ/L Anion Gap 8 MEQ/L 10 MEQ/L Blood Urea Nitrogen 13 MG/DL 12 MG/DL Creatinine 0.81 MG/DL 0.64 MG/DL Estimat Glomerular Filtration 73 ML/MIN 96 ML/MIN Rate Random Glucose 116 MG/DL 101 MG/DL Lactic Acid Level 1.2 mmol/L Calcium Level 8.6 MG/DL 8.0 MG/DL Total Bilirubin 1.6 MG/DL 1.2 MG/DL Aspartate Amino Transf 73 U/L 34 U/L (AST/SGOT) Alanine Aminotransferase 47 U/L 34 U/L (ALT/SGPT) Alkaline Phosphatase 560 U/L 401 U/L Total Protein 8.5 GM/DL 7.3 GM/DL Albumin 2.7 GM/DL 2.2 GM/DL Lipase 251 U/L Urine Color YELLOW Urine Turbidity CLEAR Urine pH 5.5 Urine Specific [place] 1.021 Urine Protein NEG mg/dL Urine Glucose (UA) NEG mg/dL Urine Ketones NEG mg/dL Urine Occult Blood NEG Urine Nitrite NEG Urine Bilirubin NEG Urine Urobilinogen LESS THAN 2.0 MG/DL Urine Leukocyte Esterase SMALL Urine RBC LESS THAN 1 /hpf Urine WBC 4 /hpf Urine Squamous Epithelial 1 /hpf Cells Urine Bacteria RARE /hpf Urine Hyaline Casts 1 /lpf Urine Mucus FEW /lpf Microscopic Urinalysis Comment CULT NOT INDICATED Date/Time Procedure Status Source Growth 08/09/16 20:05 Aerobic Blood Culture - Preliminary Resulted Blood Peripheral NO GROWTH IN 1 DAY 08/09/16 20:05 Anaerobic Blood Culture - Preliminary Resulted Blood Peripheral NO GROWTH IN 1 DAY Physical Examination HEENT: Normocephalic; atraumatic; no jaundice. CHEST: CTA CARDIAC: RRR ABDOMEN: Soft, soft, distended, ascites, mild diffuse tenderness, no hepatosplenomegaly; bowel sounds are present in all four quadrants. EXTREMITIES: Trace edema. SKIN: Normal; no rash; no jaundice. PRECISION LENS TECHNICIAN: No focal deficits; lethargic and oriented times three. (LoweryElena) Assessment and Plan Plan ASSESSMENT: - Abdominal pain, Nausea, Decreased appetite, Early Satiety. Pt was recently hospitalized for high grade CBD stricture and had ERCP with brushings and stent placement on 07/31/16 and was discharged on 08/03. She reports that her pain did improve at discharge, but never completely went away and it worsened with fevers/chills about 3 days ago. She is not able to describe this, but it does seem to be more diffuse. Abdomen/Pelvis CT (08/09/16) ----> 1. Silastic biliary stent now present and appears appropriately positioned. Decreased intrahepatic biliary distention, now mild. No pancreatitis or other acute complication demonstrated. 2. Increased ascites, moderate. Also mild to moderate body wall edema/anasarca developing. 3. Mild enteritis/colitis possible versus reactive wall thickening from the ascites. In any event, no obstruction demonstrated. HIDA (08/09/16)-----> Nonvisualization of the gallbladder however the patient does have a stent in place. I reviewed the CT scan from the same day which failed to demonstrate any obvious gallbladder wall thickening. Delayed images of the gallbladder will be performed. Of note, her LFTs have been trending down since her stent placement. She is going for delayed images of GB now. Will await these results and get GS evaluation. Cipro/ Flagyl. - Abdominal swelling/ascites. Pt reports fevers/chills x 3 days. WBC on admission was 14.1, now 8.2. Cipro/Flagyl. - Leukocytosis. BCx no growth 1 day. Flagyl/Cipro. ? Diagnostic paracentesis. - High grade CBD stricture. S/P ERCP with brushings/stent placement (07/31/16)---- > intra hepatic duct dilatation, s/p brushings, s/p stent placement. Pathology revealed rare atypical cells present in the background of numerous glandular epithelial cells, malignancy cannot be excluded. LFTs have been trending down since stent placement. AFP during last hospitalization was 2.4. Will get Ca19-9, CEA. PLAN: - NPO - Await delayed images of HIDA scan - Ca19-9, CEA (Recent AFP 2.4) - Cont. PPI - Cont. Flagyl/Cipro - CBC, CMP in am - GS evaluation. - ? Need for EUS - ? Need for diagnostic paracentesis. - Supportive care - Further recommendations to follow based on results of above - Pt seen and examined by Dr. Whitehead and myself and this note is written on her behalf (Elena Lowery) Physician Comments seen, examined agree with above (Shanell Whitehead MD) Elena Lowery Aug 10, 2016 12:28 Shanell Whitehead MD Aug 21, 2016 18:24
--- NOTE | 2016-08-10 17:02 | HHI.PR ---
Subjective Remarks Follow up for abdominal pain. Patient spoken to in primary language Bel[place]an by Dr. Mart. No fevers overnight. The patient reports her abdominal pain has improved however still having some discomfort across bilateral lower quadrants. She also reports some dysuria and noticed that her urine was darker yesterday. She also has noticed that her stool is becoming more yellow. The patient denies any alcohol abuse, states she has only drank alcohol twice in her entire life. She denies any tobacco use. She denies any other medical complaints at this time. Objective Vitals Vital Signs Date Time Temp Pulse Resp B/P Pulse Ox O2 Delivery O2 Flow Rate FiO2 08/10/16 15:59 98.1 90 14 147/82 95 08/10/16 11:03 98.4 86 16 139/79 96 08/10/16 08:15 98.4 90 16 132/74 95 08/10/16 06:39 98.6 87 18 127/75 95 08/10/16 00:34 99.2 105 18 136/73 92 08/09/16 19:16 98.9 104 18 139/82 93 Room Air Result Diagram: 08/10/16 1037 08/10/16 1037 Imaging Last Impressions Hepatobiliary Scan Nuclear Medicine 08/09/16 0000 Signed Impressions: Service Date/Time: Tuesday, August 09, 2016 20:50 - CONCLUSION: Nonvisualization of the gallbladder however the patient does have a stent in place. I reviewed the CT scan from the same day which failed to demonstrate any obvious gallbladder wall thickening. Delayed images of the gallbladder will be performed. Matt Tovar MD ADDENDUM: COMPARISON: BILIARY SCAN (HIDA), July 30, 2016, 13:41. A delayed image in anterior and right lateral projection was performed at 16 hours. There is no activity seen within the lumen of gallbladder. Since the patient has an indwelling biliary stent, absence of gallbladder visualization is nonpredictive with respect to cystic duct obstruction. Bert Brandon MD Abdomen/Pelvis CT 08/09/16 0000 Signed Impressions: Service Date/Time: Tuesday, August 09, 2016 17:46 - CONCLUSION: 1. Silastic biliary stent now present and appears appropriately positioned. Decreased intrahepatic biliary distention, now mild. No pancreatitis or other acute complication demonstrated. 2. Increased ascites, moderate. Also mild to moderate body wall edema/anasarca developing. 3. Mild enteritis/colitis possible versus reactive wall thickening from the ascites. In any event, no obstruction demonstrated. Fadi Yin MD Objective Remarks GENERAL: Well-developed well-nourished middle aged female patient in [facility]. Ambulating at bedside. SKIN: Warm and dry. HEENT: Atraumatic. Normocephalic. Pupils equal and round. Mucous membranes pink and moist. NECK: Trachea midline. CARDIOVASCULAR: Regular rate and rhythm. No murmur appreciated. RESPIRATORY: No accessory muscle use. Clear to auscultation. Breath sounds equal bilaterally. GASTROINTESTINAL: Abdomen soft, non-tender, nondistended. Normoactive bowel sounds x4. MUSCULOSKELETAL: Extremities without clubbing, cyanosis, or edema. No obvious deformities. NEUROLOGICAL: Awake and alert. No obvious cranial nerve deficits. Motor grossly within normal limits. Normal speech. PSYCHIATRIC: Appropriate mood and affect; insight and judgment normal. Medications and IVs Current Medications Medications (Trade) Dose Ordered Sig/Anastacio Route Start Time Stop Time Status Last Admin (NS Flush) 2 ml UNSCH PRN IV FLUSH 08/09/16 20:45 (NS Flush) 2 ml BID IV FLUSH 08/09/16 21:00 08/09/16 21:58 (Narcan Inj) 0.4 mg UNSCH PRN IV 08/09/16 20:45 Hydromorphone HCl 0.2 mg 0.2 mg Q4H PRN IV PUSH 08/09/16 23:45 08/10/16 00:16 Ciprofloxacin/ Dextrose 200 ml @ 200 mls/hr Q12H IV 08/10/16 05:00 08/10/16 04:50 (Flagyl 500 Mg Inj) 100 ml @ 100 mls/hr Q6H IV 08/10/16 06:00 08/10/16 12:19 (Protonix) 40 mg DAILY PO 08/10/16 09:00 08/10/16 09:00 Morphine Sulfate 2 mg 2 mg Q3H PRN IV PUSH 08/10/16 08:00 (NS 1000 ml Inj) 1,000 ml @ 75 mls/hr [id number] IV 08/10/16 11:17 A/P Problem List: (1) Abdominal pain ICD Code: R10.9 Status: Acute Assessment and Plan 56-year-old female with history of CBD stricture s/p ERCP with stent placement 1 week ago presents with abdominal pain, nausea/vomiting Symptomatic ascites: CT abd images reviewed, showed Silastic biliary stent now present and appears appropriately positioned; Decreased intrahepatic biliary distention, now mild; Increased ascites, moderate; mild to moderate body wall edema/anasarca developing; Mild enteritis/colitis possible versus reactive wall thickening from the ascites. No hx of Alcohol use or cirrhosis. -Consulted gastroenterology -Discussed with Dr. Whitehead, recommends D&T paracentesis, labs ordered -gentle IVF hydration -supportive treatment with pain control and antiemetics prn Abdominal Pain with abnormal HIDA scan -HIDA showed nonvisualization of the GB -GI consulted general surgery Acute Colitis: seen on CT abdomen as above -Continue antibiotics with IV Cipro/Flagyl -keep NPO for now Recent High Grade CBD Stricture: s/p ERCP with stent placement 07/31. Pathology revealed rare atypical cells present in the background of numerous glandular epithelial cells, malignancy cannot be excluded. LFTs have been trending down since stent placement. CT abd showed biliary stent appropriately positioned, decreased biliary distention, no pancreatitis. -Gastroenterology on board -Continue to monitor LFTs, trending down. Leukocytosis with left shift: suspect from dehydration. Afebrile. -Given IVF. -leukocytosis improved, WBC 8.2K -continue to monitor. Hyponatremia: likely secondary to dehydration -Na 126 upon arrival -given IVF -improved to Na 130 -continue to monitor DVT prophylaxiswith Lovenox Written by Katerina Muse, acting as scribe for Dr. Mart on 08/10/16 at 16: 52. Attending Statement This note was transcribed by scribe Katerina Muse. I, Dr. Ayde Mart personally performed the history, physical exam, and medical decision making; and confirmed the accuracy of the information in the transcribed note. Additional information: discussed with Dr. Wylie/gen surg. Images reviewed with him. Patient has findings suspicious for cirrhosis. Consider liver biopsy. Not a good surgical candidate for cholecystectomy at this time. Symptoms not c/w cholecystitis at this time. Problem Qualifiers (1) Abdominal pain: Qualified Code: R10.11 - Right upper quadrant abdominal pain Katerina Muse PA-C Aug 10, 2016 17:02 Ayde Mart MD Aug 10, 2016 19:13
[2016-08-10] MEDS: SODIUM CHLORIDE 0.9% FLUSH 10 ML FLUSH IV FLUSH PRN (21:53)
[2016-08-11] VITALS (9 sets, daily range): BP systolic 131–167; BP diastolic 74–89; PULSE 78–98; RESP 14–20; TEMP 96.7–98.9; O2SAT 92–97
--- NOTE | 2016-08-11 00:19 | MB ---
cc: ZAY HUNT, ERAN REYNA GRANDA DATE OF CONSULTATION: 08/10/2016 REQUESTING PHYSICIAN: LEROY Duff. REASON FOR CONSULTATION: HISTORY OF PRESENT ILLNESS The patient is a 56-year-old female with known history of high grade stricture of the common bile duct. The patient originally underwent MRCP followed by ERCP approximately one week ago. A high grade stricture was found and brushings did not show any definitive malignancy. A stent was placed and the patient underwent resolution of her stricture and biliary obstruction. The patient did present back on 07/28/2016 with increasing abdominal pain in the bilateral lower quadrants and abdominal distension. The patient was found to have significant ascites and small bowel thickening likely secondary due to ascites. The patient also has some multiple laboratory abnormalities including some mild elevated bilirubin, some hyponatremia and some altered coags, concerning for hepatic dysfunction. The patient did undergo a HIDA scan which did show nonvisualization of the gallbladder, however, a stent has been placed. CT scan does not show any acute inflammation of the gallbladder. The patient denies any right upper quadrant pain. REVIEW OF SYSTEMS: A 12 point review of systems was conducted. Pertinent positives documented in the history of present illness, above. PAST MEDICAL HISTORY Biliary obstruction, otherwise negative. PAST SURGICAL HISTORY: ERCP. ALLERGIES PENICILLIN. MEDICATIONS: 1. Protonix. 2. Hydrocodone. FAMILY HISTORY: No history of malignancy of the biliary tract. SOCIAL HISTORY: The patient denies alcohol, tobacco or illicit drug use. PHYSICAL EXAMINATION: Vital signs: Blood pressure 149/88, heart rate 97, temperature 98.3 degrees. GENERAL: Patient is a well-developed, well-nourished female, no acute distress, non-Turkish speaking, translation was through the patient's niece. HEAD: Normocephalic, atraumatic. Pupils round, to light. Sclerae is anicteric. Neck is supple. No JVD. Lungs: Clear to addition bilaterally. Nonlabored breathing pattern. Heart: Regular rate and rhythm. Abdomen: Distended with ascites, no peritonitis, no rebound tenderness. No hernias. No Trevino's sign. Back: No CVA tenderness. Extremities: No clubbing, cyanosis or edema. Neurologic: Patient is awake, alert, appropriate, walking in the room, moving all four extremities. Grossly nonfocal. Cranial nerves II-XII grossly intact. ASSESSMENT AND PLAN: The patient is a 56 year-old female with hepatic dysfunction and ascites. The patient has negative serologies for Hepatitis C and non-alcohol use. Likely the patient has a stricture that caused acute hepatic dysfunction which has not recovered, and the patient has persistent ascites. The patient has no right upper quadrant pain on exam or on history, and complains only of bilateral lower quadrant pain and ascites. No signs of infection or inflammation on the scan. I do not feel the patient has any significant gallbladder pathology at this time. I feel the patient has acute liver dysfunction which will hopefully resolve now that her biliary tract is well drained. I do agree with continuous supportive care with the assistance of gastroenterology for her management of hepatic dysfunction with paracentesis as well as medical management as they see fit. If the patient has improvement in her hepatic dysfunction, we can consider operative intervention if the patient develops symptoms from her gallbladder as she does have a gallstone. No acute surgical intervention at this time. I do agree with continuing to follow up to rule out malignancy in this patient as a source of her stricture. I do not feel that surgical intervention is warranted as the patient has significant hepatic dysfunction and would not be a surgical candidate at this time anyway. Would recommend managing her liver disease. Thank you for the consultation. MD SURAJ Solorio/TANA /9:39 PM /12:05 AM
[2016-08-11] MEDS: HYDROmorphone HCL PF 1 MG/ML VIAL IV PUSH PRN (02:59)
[2016-08-11] MEDS: SODIUM CHLOR 0.9% 1000 ML INJ 1,000 ML IV SCH ×2 (03:00→13:30)
[2016-08-11] MEDS: SODIUM CHLORIDE 0.9% FLUSH 10 ML FLUSH IV FLUSH PRN (03:00)
[2016-08-11 03:22] LABS: BACTERIA, URINE RARE /hpf; BLOOD, URINE NEG (NEG); COMMENT (UR) CULT NOT INDICATED; CULTURE IF INDICATED CULT NOT INDICATED; GLUCOSE,URINE NEG (NEG); GRANULAR CAST, URINE 8 /lpf; HYALINE CAST, URINE 3 /lpf (RARE); KETONE, URINE TRACE mg/dL (NEG); MUCUS URINE MANY /lpf (OCC); NITRITE,URINE NEG (NEG); PH, URINE 5.5 (5.0-8.5); SQUAMOUS EPITHELIAL CELL URINE <1 /hpf (0-5)
[2016-08-11 03:23] LABS: URINE COLOR DARK-BROWN (YELLW/STRAW)
[2016-08-11] MEDS: metroNIDAZOLE 500 MG INJ 100 ML IV SCH ×4 (05:41→23:10)
[2016-08-11] MEDS: CIPROFLOXACIN 400 MG PREMIX 200 ML IV SCH ×2 (05:42→18:11)
[2016-08-11 08:00] LABS: AUTOMATED NEUTROPHIL # 5.3 TH/MM3 (1.8-7.7); BASOPHIL # 0.1 TH/MM3 (0-0.2); EOSINOPHIL # 0.2 TH/MM3 (0-0.4); EOSINOPHIL % 3.2 % (0.0-4.0); HEMATOCRIT 33.2 % (35.0-46.0); HEMO FLAGS DIFF FINAL; LYMPH % 10.7 % (9.0-44.0); LYMPHOCYTE # 0.8 TH/MM3 (1.0-4.8); MEAN CELL VOLUME 87.3 FL (80.0-100.0); MEAN CORPUSCULAR HEMOGLOBIN 29.1 PG (27.0-34.0); MEAN CORPUSCULAR HGB CONC 33.4 % (32.0-36.0); MONO % 11.7 % (0.0-8.0); NEUT % 73.4 % (16.0-70.0); PLATELET COUNT 502 TH/MM3 (150-450); RED BLOOD COUNT 3.81 MIL/MM3 (4.00-5.30); RED CELL DISTRIBUTION WIDTH 15.3 % (11.6-17.2); WHITE BLOOD COUNT 7.2 TH/MM3 (4.0-11.0)
[2016-08-11 08:29] LABS: ALKALINE PHOSPHATASE 633 U/L (45-117); ALT (GPT) 34 U/L (10-53); ANION GAP 9 MEQ/L (5-15); AST (GOT) 51 U/L (15-37); BICARBONATE 26.8 MEQ/L (21.0-32.0); BLOOD UREA NITROGEN 12 MG/DL (7-18); CHLORIDE 94 MEQ/L (98-107); GLOMERULAR FILTRATION RATE 116 ML/MIN (>89); POTASSIUM 3.8 MEQ/L (3.5-5.1); SODIUM (NA) 130 MEQ/L (136-145); TOTAL BILIRUBIN ADULT 1.1 MG/DL (0.2-1.0)
[2016-08-11] MEDS: PANTOPRAZOLE SOD 40 MG DELAYED RELEASE TAB PO SCH (09:00)
[2016-08-11] MEDS: SODIUM CHLORIDE 0.9% FLUSH 10 ML FLUSH IV FLUSH SCH ×2 (09:00→20:40)
--- NOTE | 2016-08-11 10:11 | RADRPT ---
EXAM DATE/TIME: 08/11/2016 08:34 [facility] COMPARISON: CT ABDOMEN & PELVIS W CONTRAST, August 09, 2016, 17:46. INDICATIONS : Ascites. MEDICAL HISTORY : Cardiac disorder. Abdominal pain. SURGICAL HISTORY : Biliary stent placements. MRCP. ERCP. ENCOUNTER: Initial ACUITY: 1 day PAIN SCORE: 0/10 LOCATION: Right lower quadrant FLUID: Total volume of 5,000 cc of green cloudy fluid was removed. Fluid was sent to lab for ordered studies. Post procedure scanning reveals no hematoma or other complication. TECHNIQUE: 1. Ultrasound guidance for abdominal paracentesis. 2. Paracentesis. The risks, benefits, and alternatives to ultrasound guided paracentesis were explained to the patient in detail including the risk of bleeding and infection. Written and verbal informed consent was obt ained. With the patient on the ultrasound table, ultrasound imaging was used to select the most appropriate approach for paracentesis. Overlying skin was prepped and draped in the usual sterile fashion and wi th a local anesthetic, a dermatotomy was made with an 11 blade scalpel. A 6 [place] [id number] ca theter was introduced into the peritoneal cavity and fluid was collected. The patient tolerated the procedure well and left the ultrasound suite in stable condition. CONCLUSION: Uncomplicated ultrasound guided paracentesis. Fluid was sent for ordered studies. Malignancy is suspected. Trell Souza MD FACR on August 11, 2016 at 10:08 Board Certified Radiologist. This report was verified electronically.
[2016-08-11 11:18] LABS: PERITONEAL HISTIOCYTES 23 %; PERITONEAL LYMPHS 50 %; PERITONEAL MESOTHELIAL 1 %; PERITONEAL MONOS 11 %; PERITONEAL POLYS(SEGS) 10 %; PERITONEAL WBC 1320 /MM3 (0-10)
--- NOTE | 2016-08-11 13:58 | HHI.GIFU ---
Subjective Remarks Resting in bed. Had paracentesis today with 5000cc green cloudy fluid removed. "Little bit" of pain in RUQ----> epigastric area. No vomiting. (Elena Lowery) Objective Vitals I&O Vital Signs Date Time Temp Pulse Resp B/P Pulse Ox O2 Delivery O2 Flow Rate FiO2 08/11/16 11:31 98.2 78 14 153/82 95 08/11/16 08:40 96.7 98 16 148/89 94 08/11/16 08:21 98.4 90 20 167/85 95 08/11/16 08:00 93 08/11/16 05:04 98.9 87 20 150/86 95 08/11/16 03:35 16 08/11/16 00:44 98.3 87 20 157/86 92 08/10/16 22:42 95 08/10/16 22:38 95 08/10/16 19:17 98.3 97 20 149/88 93 08/10/16 15:59 98.1 90 14 147/82 95 Laboratory Laboratory Tests Test 08/10/16 08/11/16 08/11/16 08/11/16 14:47 02:25 07:17 09:20 Carcinoembryonic Antigen 1.2 1.1 CA 19-9 Antigen 10.7 14.4 Urine Color DARK-BROWN Urine Turbidity HAZY Urine pH 5.5 Urine Specific [place] 1.030 Urine Protein 30 Urine Glucose (UA) NEG Urine Ketones TRACE Urine Occult Blood NEG Urine Nitrite NEG Urine Bilirubin SMALL Urine Urobilinogen LESS THAN 2.0 Urine Leukocyte Esterase NEG Urine RBC 1 Urine WBC 5 Urine Squamous Epithelial <1 Cells Urine Bacteria RARE Urine Hyaline Casts 3 Urine Granular Casts 8 Urine Mucus MANY Microscopic Urinalysis Comment CULT NOT INDICATED White Blood Count 7.2 Red Blood Count 3.81 Hemoglobin 11.1 Hematocrit 33.2 Mean Corpuscular Volume 87.3 Mean Corpuscular Hemoglobin 29.1 Mean Corpuscular Hemoglobin 33.4 Concent Red Cell Distribution Width 15.3 Platelet Count 502 Mean Platelet Volume 9.0 Neutrophils (%) (Auto) 73.4 Lymphocytes (%) (Auto) 10.7 Monocytes (%) (Auto) 11.7 Eosinophils (%) (Auto) 3.2 Basophils (%) (Auto) 1.0 Neutrophils # (Auto) 5.3 Lymphocytes # (Auto) 0.8 Monocytes # (Auto) 0.8 Eosinophils # (Auto) 0.2 Basophils # (Auto) 0.1 CBC Comment DIFF FINAL Differential Comment Sodium Level 130 Potassium Level 3.8 Chloride Level 94 Carbon Dioxide Level 26.8 Anion Gap 9 Blood Urea Nitrogen 12 Creatinine 0.54 Estimat Glomerular Filtration 116 Rate Random Glucose 103 Calcium Level 8.3 Total Bilirubin 1.1 Aspartate Amino Transf 51 (AST/SGOT) Alanine Aminotransferase 34 (ALT/SGPT) Alkaline Phosphatase 633 Total Protein 7.3 Albumin 2.2 Tumor Marker Alpha Fetoprotein 2.1 CA 125 Antigen 338.4 Peritoneal Fluid WBC 1320 Peritoneal Fluid RBC 897 Peritoneal Fluid Neutrophils 10 Peritoneal Fluid Lymphocytes 50 Peritoneal Fluid Monocytes 11 Peritoneal Fluid Mesothelial 1 Cells Peritoneal Fluid Histiocytes 23 Peritoneal Fluid Other Cells 6 Peritoneal Fluid Total Protein 4.6 Peritoneal Fluid Albumin 2.0 Peritoneal Fluid LDH 278 Peritoneal Fluid Glucose 87 Peritoneal Fluid Amylase 23 Date/Time Procedure Status Source Growth 08/11/16 09:20 Gram Stain - Final Resulted Fluid Peritoneal Fluid 08/11/16 09:20 Body Fluid Culture Resulted Fluid Peritoneal Fluid Pending 08/09/16 20:05 Aerobic Blood Culture - Preliminary Resulted Blood Peripheral NO GROWTH IN 2 DAYS 08/09/16 20:05 Anaerobic Blood Culture - Preliminary Resulted Blood Peripheral NO GROWTH IN 2 DAYS Imaging Last Impressions Cyst Biopsy Asp-Paracentesis US 08/11/16 0000 Signed Impressions: Service Date/Time: Thursday, August 11, 2016 08:34 - CONCLUSION: Uncomplicated ultrasound guided paracentesis. Fluid was sent for ordered studies. Malignancy is suspected. Trell Souza MD FACR Hepatobiliary Scan Nuclear Medicine 08/09/16 0000 Signed Impressions: Service Date/Time: Tuesday, August 09, 2016 20:50 - CONCLUSION: Nonvisualization of the gallbladder however the patient does have a stent in place. I reviewed the CT scan from the same day which failed to demonstrate any obvious gallbladder wall thickening. Delayed images of the gallbladder will be performed. Matt Tovar MD ADDENDUM: COMPARISON: BILIARY SCAN (HIDA), July 30, 2016, 13:41. A delayed image in anterior and right lateral projection was performed at 16 hours. There is no activity seen within the lumen of gallbladder. Since the patient has an indwelling biliary stent, absence of gallbladder visualization is nonpredictive with respect to cystic duct obstruction. Bert Brandon MD Abdomen/Pelvis CT 08/09/16 0000 Signed Impressions: Service Date/Time: Tuesday, August 09, 2016 17:46 - CONCLUSION: 1. Silastic biliary stent now present and appears appropriately positioned. Decreased intrahepatic biliary distention, now mild. No pancreatitis or other acute complication demonstrated. 2. Increased ascites, moderate. Also mild to moderate body wall edema/anasarca developing. 3. Mild enteritis/colitis possible versus reactive wall thickening from the ascites. In any event, no obstruction demonstrated. Fadi Yin MD Physical Exam HEENT: Normocephalic; atraumatic; no jaundice. CHEST: CTA. CARDIAC: RRR ABDOMEN: Soft, nondistended, mild RUQ tenderness; no hepatosplenomegaly; bowel sounds are present in all four quadrants. EXTREMITIES: No clubbing, cyanosis, or edema. SKIN: Normal; no rash; no jaundice. MID TEACHER: No focal deficits; alert and oriented times three. (Elena LoweryP) Assessment and Plan Plan ASSESSMENT: - Abdominal pain, Nausea, Decreased appetite, Early Satiety. Pt was recently hospitalized for high grade CBD stricture and had ERCP with brushings and stent placement on 07/31/16 and was discharged on 08/03. She reports that her pain did improve at discharge, but never completely went away and it worsened with fevers/chills about 3 days ago. She is not able to describe this, but it does seem to be more diffuse. Abdomen/Pelvis CT (08/09/16) ----> 1. Silastic biliary stent now present and appears appropriately positioned. Decreased intrahepatic biliary distention, now mild. No pancreatitis or other acute complication demonstrated. 2. Increased ascites, moderate. Also mild to moderate body wall edema/anasarca developing. 3. Mild enteritis/colitis possible versus reactive wall thickening from the ascites. In any event, no obstruction demonstrated. HIDA (08/09/16)----> Nonvisualization of the gallbladder however the patient does have a stent in place. I reviewed the CT scan from the same day which failed to demonstrate any obvious gallbladder wall thickening. Delayed images of the gallbladder will be performed. 13:41: A delayed image in anterior and right lateral projection was performed at 16 hours. There is no activity seen within the lumen of gallbladder. Since the patient has an indwelling biliary stent, absence of gallbladder visualization is nonpredictive with respect to cystic duct obstruction. Of note, her LFTs have been trending down since her stent placement. GS following, does not feel she is a candidate to have cystectomy. Pain has improved today after paracentesis. Cipro/Flagyl. - Abdominal swelling/ascites. Pt reports fevers/chills x 3 days. Cyst Biopsy Asp-Paracentesis US (08/11/16)----> Uncomplicated ultrasound guided paracentesis. Fluid was sent for ordered studies. Malignancy is suspected. Peritoneal WBC 1320, Peritoneal RBC 897, Cx pending. WBC 7.2. Cytology pending. Cipro/ Flagyl. AFP 2.1, CEA - Leukocytosis. BCx no growth 2 days. Flagyl/Cipro. Peritoneal fluid pending. - High grade CBD stricture. S/P ERCP with brushings/stent placement (07/31/16)---- > intra hepatic duct dilatation, s/p brushings, s/p stent placement. Pathology revealed rare atypical cells present in the background of numerous glandular epithelial cells, malignancy cannot be excluded. LFTs have been trending down since stent placement. AFP during last hospitalization was 2.4. Ca19-9 10.7 , CEA 1.2, Ca 125 338.4. - ? Underlying liver disease, ?Cirrhosis. Hepatitis panel negative. ARAMIS negative. AMA < 20.0, ASMA negative, AFP 2.1, Iron saturation 27.9, Ferritin 41, Ceruloplasmin 36, Alpha 1 Antitrypsin 191. PLAN: - 2 gram sodium diet - Await cytology - Await culture - Cont. PPI - Cont. Flagyl/Cipro - Monitor labs - GS following - Supportive care - Further recommendations to follow based on results of above - Pt seen and examined by Dr. Whitehead and myself and this note is written on her behalf (Elena Lowery) Physician Comments SEEN, EXAMINED AGREE WITH ABOVE AWAIT CYTOLOGY RESULTS, IF NEGATIVE WILL NEED ERCP/EUS (Shanell Whitehead MD) Elena Lowery Aug 11, 2016 13:58 Shanell Whitehead MD Aug 11, 2016 16:41
--- NOTE | 2016-08-11 15:04 | HHI.PR ---
Subjective Remarks Follow up for abdominal pain, ascites. Patient seen with her son at bedside, spoken to in primary language [place] by Dr. Mart. The patient reports continued abdominal pain; she states it starts pulsating at the RUQ then radiates to the LUQ and down to the lower abdomen. No nausea/vomiting. No fevers. S/p paracentesis today which removed 5000cc green cloudy fluid. Thoroughly discussed over the phone with patient's [id number] Ever. Objective Vitals Vital Signs Date Time Temp Pulse Resp B/P Pulse Ox O2 Delivery O2 Flow Rate FiO2 08/11/16 11:31 98.2 78 14 153/82 95 08/11/16 08:40 96.7 98 16 148/89 94 08/11/16 08:21 98.4 90 20 167/85 95 08/11/16 08:00 93 08/11/16 05:04 98.9 87 20 150/86 95 08/11/16 03:35 16 08/11/16 00:44 98.3 87 20 157/86 92 08/10/16 22:42 95 08/10/16 22:38 95 08/10/16 19:17 98.3 97 20 149/88 93 08/10/16 15:59 98.1 90 14 147/82 95 Result Diagram: 08/11/1671608/11/16716 Imaging Last Impressions Cyst Biopsy Asp-Paracentesis US 08/11/16 0000 Signed Impressions: Service Date/Time: Thursday, August 11, 2016 08:34 - CONCLUSION: Uncomplicated ultrasound guided paracentesis. Fluid was sent for ordered studies. Malignancy is suspected. Trell Souza MD FACR Hepatobiliary Scan Nuclear Medicine 08/09/16 0000 Signed Impressions: Service Date/Time: Tuesday, August 09, 2016 20:50 - CONCLUSION: Nonvisualization of the gallbladder however the patient does have a stent in place. I reviewed the CT scan from the same day which failed to demonstrate any obvious gallbladder wall thickening. Delayed images of the gallbladder will be performed. Matt Tovar MD ADDENDUM: COMPARISON: BILIARY SCAN (HIDA), July 30, 2016, 13:41. A delayed image in anterior and right lateral projection was performed at 16 hours. There is no activity seen within the lumen of gallbladder. Since the patient has an indwelling biliary stent, absence of gallbladder visualization is nonpredictive with respect to cystic duct obstruction. Bert Brandon MD Abdomen/Pelvis CT 08/09/16 0000 Signed Impressions: Service Date/Time: Tuesday, August 09, 2016 17:46 - CONCLUSION: 1. Silastic biliary stent now present and appears appropriately positioned. Decreased intrahepatic biliary distention, now mild. No pancreatitis or other acute complication demonstrated. 2. Increased ascites, moderate. Also mild to moderate body wall edema/anasarca developing. 3. Mild enteritis/colitis possible versus reactive wall thickening from the ascites. In any event, no obstruction demonstrated. Fadi Yin MD Objective Remarks GENERAL: Well-developed well-nourished middle aged female patient in [facility]. SKIN: Warm and dry. HEENT: Atraumatic. Normocephalic. Pupils equal and round. Mucous membranes pink and moist. NECK: Trachea midline. CARDIOVASCULAR: Regular rate and rhythm. No murmur appreciated. RESPIRATORY: No accessory muscle use. Clear to auscultation. Breath sounds equal bilaterally. GASTROINTESTINAL: Abdomen soft, nondistended, mild diffuse TTP, worse at RUQ. Normoactive bowel sounds x4. MUSCULOSKELETAL: Extremities without clubbing, cyanosis, or edema. No obvious deformities. NEUROLOGICAL: Awake and alert. No obvious cranial nerve deficits. Motor grossly within normal limits. Normal speech. PSYCHIATRIC: Appropriate mood and affect; insight and judgment normal. Medications and IVs Current Medications Medications (Trade) Dose Ordered Sig/Anastacio Route Start Time Stop Time Status Last Admin (NS Flush) 2 ml UNSCH PRN IV FLUSH 08/09/16 20:45 08/11/16 03:00 (NS Flush) 2 ml BID IV FLUSH 08/09/16 21:00 08/09/16 21:58 (Narcan Inj) 0.4 mg UNSCH PRN IV 08/09/16 20:45 Hydromorphone HCl 0.2 mg 0.2 mg Q4H PRN IV PUSH 08/09/16 23:45 08/11/16 02:59 Ciprofloxacin/ Dextrose 200 ml @ 200 mls/hr Q12H IV 08/10/16 05:00 08/11/16 05:42 (Flagyl 500 Mg Inj) 100 ml @ 100 mls/hr Q6H IV 08/10/16 06:00 08/11/16 13:30 (Protonix) 40 mg DAILY PO 08/10/16 09:00 08/10/16 09:00 Morphine Sulfate 2 mg 2 mg Q3H PRN IV PUSH 08/10/16 08:00 (NS 1000 ml Inj) 1,000 ml @ 75 mls/hr [id number] IV 08/10/16 11:17 08/11/16 13:30 A/P Problem List: (1) Abdominal pain ICD Code: R10.9 Status: Acute Assessment and Plan 56-year-old female with history of CBD stricture s/p ERCP with stent placement 1 week ago presents with abdominal pain, nausea/vomiting Symptomatic ascites: Concern for malignancy. CT abd images reviewed, showed Silastic biliary stent now present and appears appropriately positioned; Decreased intrahepatic biliary distention, now mild; Increased ascites, moderate ; mild to moderate body wall edema/anasarca developing; Mild enteritis/colitis possible versus reactive wall thickening from the ascites. No hx of Alcohol use or cirrhosis. -HIDA 08/10 shows nonvisualization of the gallbladder -Consulted gastroenterology, Discussed with Dr. Whitehead, recommends D&T paracentesis -Discussed with Dr. Wylie/gen surg, images reviewed, findings suspicious for cirrhosis, Consider liver bx. Not a good surgical candidate for cholecystectomy at this time. Symptoms not c/w cholecystitis at this time. -s/p U/S guided abdominal paracentesis 08/11 removed 5L green cloudy fluid, WBC 1320, RBC 897, cytology/culture pending -tumor markers remarkable for CA-125 elevated at 338 -continue IV cipro/flagyl -gentle IVF hydration -supportive treatment with pain control and antiemetics prn -advanced diet Acute Colitis: seen on CT abdomen as above -Continue antibiotics with IV Cipro/Flagyl -diet per gastroenterology Recent High Grade CBD Stricture: s/p ERCP with stent placement 07/31. Pathology revealed rare atypical cells present in the background of numerous glandular epithelial cells, malignancy cannot be excluded. LFTs have been trending down since stent placement. CT abd showed biliary stent appropriately positioned, decreased biliary distention, no pancreatitis. -Gastroenterology on board -Continue to monitor LFTs, trending down. Leukocytosis with left shift: suspect from dehydration. Afebrile. -Given IVF. -leukocytosis improved, WBC 7.2K -continue to monitor. Hyponatremia: likely secondary to dehydration -Na 126 upon arrival -given IVF -improved to Na 130 -continue to monitor DVT prophylaxiswith Lovenox Written by Katerina Muse, acting as scribe for Dr. Mart on 08/11/16 at 15: 00. Attending Statement This note was transcribed by scribe. I, Dr. Ayde Mart personally performed the history, physical exam, and medical decision making; and confirmed the accuracy of the information in the transcribed note. Authenticated by Dr. Ayde Mart on 08/13/16 at 13:41. Problem Qualifiers (1) Abdominal pain: Qualified Code: R10.11 - Right upper quadrant abdominal pain Katerina Muse PA-C Aug 11, 2016 15:04 Ayde Mart MD Aug 13, 2016 13:41
[2016-08-12] VITALS: BP 174/81; PULSE 87; RESP 18; TEMP 99.7; O2SAT 94
[2016-08-12] MEDS: CIPROFLOXACIN 400 MG PREMIX 200 ML IV SCH ×2 (05:08→16:34)
[2016-08-12] MEDS: metroNIDAZOLE 500 MG INJ 100 ML IV SCH ×3 (05:08→18:07)
[2016-08-12] MEDS: SODIUM CHLOR 0.9% 1000 ML INJ 1,000 ML IV SCH (05:08)
[2016-08-12] MEDS: HYDROmorphone HCL PF 1 MG/ML VIAL IV PUSH PRN (06:25)
[2016-08-12 07:12] VITALS: BP 165/84; PULSE 88; RESP 20; TEMP 98.3; O2SAT 95
[2016-08-12 07:50] VITALS: PULSE 84
[2016-08-12 07:58] VITALS: BP 146/79; PULSE 85; RESP 16; TEMP 97.9; O2SAT 96
[2016-08-12] MEDS: PANTOPRAZOLE SOD 40 MG DELAYED RELEASE TAB PO SCH (08:34)
[2016-08-12] MEDS: SODIUM CHLORIDE 0.9% FLUSH 10 ML FLUSH IV FLUSH SCH ×2 (08:34→20:59)
[2016-08-12] MEDS ORDERED: SIMETHICONE 80 MG CHEWABLE TAB CHEW ONE (14:00)
[2016-08-12] MEDS ORDERED: SIMETHICONE 80 MG CHEWABLE TAB CHEW PRN (14:00)
--- NOTE | 2016-08-12 14:04 | HHI.PR ---
Subjective Remarks Follow-up for abdominal pain and ascites. Patient seen using [employer] translation services. Patient continues to complain of right upper quadrant discomfort. However, she states her abdominal swelling and discomfort have been significantly improved after paracentesis. She does complain of some bloating and gas however. She is currently eating lunch, no nausea or vomiting. She had a bowel movement earlier, states it was foul-smelling. Objective Vitals Vital Signs Date Time Temp Pulse Resp B/P Pulse Ox O2 Delivery O2 Flow Rate FiO2 08/12/16 07:58 97.9 85 16 146/79 96 08/12/16 07:50 84 08/12/16 07:12 98.3 88 20 165/84 95 08/12/16 00:00 99.7 87 18 174/81 94 08/11/16 20:45 97.8 84 18 140/74 97 08/11/16 19:16 16 08/11/16 19:15 81 08/11/16 15:59 97.5 90 16 131/86 96 Result Diagram: 08/11/1671608/11/1617 Imaging Last Impressions Cyst Biopsy Asp-Paracentesis US 08/11/16 0000 Signed Impressions: Service Date/Time: Thursday, August 11, 2016 08:34 - CONCLUSION: Uncomplicated ultrasound guided paracentesis. Fluid was sent for ordered studies. Malignancy is suspected. Trell Souza MD FACR Hepatobiliary Scan Nuclear Medicine 08/09/16 0000 Signed Impressions: Service Date/Time: Tuesday, August 09, 2016 20:50 - CONCLUSION: Nonvisualization of the gallbladder however the patient does have a stent in place. I reviewed the CT scan from the same day which failed to demonstrate any obvious gallbladder wall thickening. Delayed images of the gallbladder will be performed. Matt Tovar MD ADDENDUM: COMPARISON: BILIARY SCAN (HIDA), July 30, 2016, 13:41. A delayed image in anterior and right lateral projection was performed at 16 hours. There is no activity seen within the lumen of gallbladder. Since the patient has an indwelling biliary stent, absence of gallbladder visualization is nonpredictive with respect to cystic duct obstruction. Bert Brandon MD Abdomen/Pelvis CT 08/09/16 0000 Signed Impressions: Service Date/Time: Tuesday, August 09, 2016 17:46 - CONCLUSION: 1. Silastic biliary stent now present and appears appropriately positioned. Decreased intrahepatic biliary distention, now mild. No pancreatitis or other acute complication demonstrated. 2. Increased ascites, moderate. Also mild to moderate body wall edema/anasarca developing. 3. Mild enteritis/colitis possible versus reactive wall thickening from the ascites. In any event, no obstruction demonstrated. Fadi Yin MD Objective Remarks GENERAL: Well-developed well-nourished. In no acute distress. SKIN: Warm and dry. No lesions noted. HEENT: Normocephalic. Pupils equal and round. Mucous membranes pink and moist. CARDIOVASCULAR: Regular rate and rhythm. No murmur appreciated. RESPIRATORY: No accessory muscle use. Clear to auscultation. Breath sounds equal bilaterally. GASTROINTESTINAL: Abdomen soft, mild RUQ TTP, mildly distended. Bowel sounds x4. MUSCULOSKELETAL: No obvious deformities. No clubbing or cyanosis. No edema. NEUROLOGICAL: Awake and alert. No focal neurological deficits. Moves upper and lower extremities spontaneously. Normal speech. PSYCHIATRIC: Appropriate mood and affect; insight and judgment normal. A/P Problem List: (1) Abdominal pain ICD Code: R10.9 Status: Acute Assessment and Plan 56-year-old female with history of CBD stricture s/p ERCP with stent placement 1 week ago presents with abdominal pain, nausea/vomiting Symptomatic ascites: Concern for malignancy. No hx of Alcohol use or cirrhosis. Imaging reviewed: CT abd showed Silastic biliary stent now present and appears appropriately positioned; Decreased intrahepatic biliary distention, now mild; Increased ascites, moderate; mild to moderate body wall edema/anasarca developing; Mild enteritis/colitis possible versus reactive wall thickening from the ascites. HIDA 08/10 shows nonvisualization of the gallbladder. -Consulted gastroenterology, Discussed with Dr. Whitehead, recommends awaiting cytology results and patient may need to have EUS with Dr. Samaniego next week. -Surgical oncology, Dr. Wylie, consulted. Not a good surgical candidate for cholecystectomy at this time. Symptoms not c/w cholecystitis at this time. -s/p U/S guided abdominal paracentesis 08/11 removed 5L green cloudy fluid, WBC 1320, RBC 897, cytology/culture pending -tumor markers remarkable for CA-125 elevated at 338 -continue IV cipro/flagyl -supportive treatment with pain control and antiemetics prn. Add simethicone. Acute Colitis: seen on CT abdomen as above -Continue antibiotics with IV Cipro/Flagyl -diet as tolerated per gastroenterology Recent High Grade CBD Stricture: s/p ERCP with stent placement 07/31. Pathology revealed rare atypical cells present in the background of numerous glandular epithelial cells, malignancy cannot be excluded. LFTs have been trending down since stent placement. CT abd showed biliary stent appropriately positioned, decreased biliary distention, no pancreatitis. -Gastroenterology on board -Continue to monitor LFTs, stable, follow-up CMP. Leukocytosis with left shift: suspect from dehydration. Afebrile. -Given IVF and leukocytosis resolved. Hyponatremia: likely secondary to dehydration -Na 126 upon arrival -given IVF -improved to Na 130 -continue to monitor DVT prophylaxiswith Lovenox Discharge Planning Await results of workup as above for suspicion of underlying malignancy. Case management consulted for assistance with discharge plan. Problem Qualifiers (1) Abdominal pain: Qualified Code: R10.11 - Right upper quadrant abdominal pain Jason Burton Aug 12, 2016 14:04
--- NOTE | 2016-08-12 15:07 | HHI.GIFU ---
Subjective Remarks Pt is standing over bed. She says she feels okay more or less. Initially she says she is not having pain now, but she later admits that she is having some mild LLQ pain and stomach pain that radiates to the right side. It feels better when she stands. She is having diarrhea, has had 2 BM today. This happens right after she eats; she can feel her stomach gurgling and then she has to have a BM. No blood. No nausea or vomiting. (Giselle Nunez [employer]) Objective Vitals I&O Vital Signs Date Time Temp Pulse Resp B/P Pulse Ox O2 Delivery O2 Flow Rate FiO2 08/12/16 07:58 97.9 85 16 146/79 96 08/12/16 07:50 84 08/12/16 07:12 98.3 88 20 165/84 95 08/12/16 00:00 99.7 87 18 174/81 94 08/11/16 20:45 97.8 84 18 140/74 97 08/11/16 19:16 16 08/11/16 19:15 81 08/11/16 15:59 97.5 90 16 131/86 96 Laboratory Date/Time Procedure Status Source Growth 08/11/16 09:20 Gram Stain - Final Resulted Fluid Peritoneal Fluid 08/11/16 09:20 Body Fluid Culture - Preliminary Resulted Fluid Peritoneal Fluid NO GROWTH IN 24 HOURS. 08/09/16 20:05 Aerobic Blood Culture - Preliminary Resulted Blood Peripheral NO GROWTH IN 3 DAYS 08/09/16 20:05 Anaerobic Blood Culture - Preliminary Resulted Blood Peripheral NO GROWTH IN 3 DAYS Imaging Last Impressions Cyst Biopsy Asp-Paracentesis US 08/11/16 0000 Signed Impressions: Service Date/Time: Thursday, August 11, 2016 08:34 - CONCLUSION: Uncomplicated ultrasound guided paracentesis. Fluid was sent for ordered studies. Malignancy is suspected. Trell Souza MD FACR Hepatobiliary Scan Nuclear Medicine 08/09/16 0000 Signed Impressions: Service Date/Time: Tuesday, August 09, 2016 20:50 - CONCLUSION: Nonvisualization of the gallbladder however the patient does have a stent in place. I reviewed the CT scan from the same day which failed to demonstrate any obvious gallbladder wall thickening. Delayed images of the gallbladder will be performed. Matt Tovar MD ADDENDUM: COMPARISON: BILIARY SCAN (HIDA), July 30, 2016, 13:41. A delayed image in anterior and right lateral projection was performed at 16 hours. There is no activity seen within the lumen of gallbladder. Since the patient has an indwelling biliary stent, absence of gallbladder visualization is nonpredictive with respect to cystic duct obstruction. Bert Brandon MD Abdomen/Pelvis CT 08/09/16 0000 Signed Impressions: Service Date/Time: Tuesday, August 09, 2016 17:46 - CONCLUSION: 1. Silastic biliary stent now present and appears appropriately positioned. Decreased intrahepatic biliary distention, now mild. No pancreatitis or other acute complication demonstrated. 2. Increased ascites, moderate. Also mild to moderate body wall edema/anasarca developing. 3. Mild enteritis/colitis possible versus reactive wall thickening from the ascites. In any event, no obstruction demonstrated. Fadi Yin MD Physical Exam HEENT: Normocephalic; atraumatic; no jaundice. CHEST: CTA. CARDIAC: RRR ABDOMEN: Soft, distended, mild RUQ tenderness; no hepatosplenomegaly; bowel sounds are present in all four quadrants. EXTREMITIES: No clubbing, cyanosis, or edema. SKIN: Normal; no rash; no jaundice. WOOL CLASSER: No focal deficits; alert and oriented times three. (Giselle Nunez [facility]) Assessment and Plan Plan ASSESSMENT: - Abdominal pain, Nausea, Decreased appetite, Early Satiety. Pt was recently hospitalized for high grade CBD stricture and had ERCP with brushings and stent placement on 07/31/16 and was discharged on 08/03. She reports that her pain did improve at discharge, but never completely went away and it worsened with fevers/chills about 3 days ago. She is not able to describe this, but it does seem to be more diffuse. Abdomen/Pelvis CT (08/09/16) ----> 1. Silastic biliary stent now present and appears appropriately positioned. Decreased intrahepatic biliary distention, now mild. No pancreatitis or other acute complication demonstrated. 2. Increased ascites, moderate. Also mild to moderate body wall edema/anasarca developing. 3. Mild enteritis/colitis possible versus reactive wall thickening from the ascites. In any event, no obstruction demonstrated. HIDA (08/09/16)----> Nonvisualization of the gallbladder however the patient does have a stent in place. I reviewed the CT scan from the same day which failed to demonstrate any obvious gallbladder wall thickening. Delayed images of the gallbladder will be performed. 13:41: A delayed image in anterior and right lateral projection was performed at 16 hours. There is no activity seen within the lumen of gallbladder. Since the patient has an indwelling biliary stent, absence of gallbladder visualization is nonpredictive with respect to cystic duct obstruction. Of note, her LFTs have been trending down since her stent placement. GS following, does not feel she is a candidate to have cystectomy. Pain has improved since paracentesis yesterday. Cipro/Flagyl. - Abdominal swelling/ascites. Pt reports fevers/chills x 3 days. Cyst Biopsy Asp-Paracentesis US (08/11/16)----> Uncomplicated ultrasound guided paracentesis. Fluid was sent for ordered studies. Malignancy is suspected. Peritoneal WBC 1320, Peritoneal RBC 897, Cx pending. WBC 7.2. Cytology pending. Cipro/ Flagyl. AFP 2.1, CEA - Diarrhea. will do stool cx to r/o c diff - Leukocytosis. 7.2 08/11/16. BCx no growth 2 days. Flagyl/Cipro. Peritoneal fluid no growth 24h. - High grade CBD stricture. S/P ERCP with brushings/stent placement (07/31/16)---- > intra hepatic duct dilatation, s/p brushings, s/p stent placement. Pathology revealed rare atypical cells present in the background of numerous glandular epithelial cells, malignancy cannot be excluded. LFTs have been trending down since stent placement. AFP during last hospitalization was 2.4. Ca19-9 10.7 , CEA 1.2, Ca 125 338.4. - ? Underlying liver disease, ?Cirrhosis. Hepatitis panel negative. ARAMIS negative. AMA < 20.0, ASMA negative, AFP 2.1, Iron saturation 27.9, Ferritin 41, Ceruloplasmin 36, Alpha 1 Antitrypsin 191. PLAN: - 2 gram sodium diet - Await cytology - Cont. PPI - Cont. Flagyl/Cipro - c diff culture - Monitor labs - GS following - Supportive care - Further recommendations to follow based on results of above - Pt seen and examined by Dr. Whitehead and myself and this note is written on her behalf (Giselle Nunez) Physician Comments available records reviewed (Shanell Whitehead MD) Giselle Nunez Aug 12, 2016 15:07 Shanell Whitehead MD Aug 12, 2016 17:34
[2016-08-12 21:12] VITALS: BP 157/85; PULSE 81; RESP 20; TEMP 98.3; O2SAT 96
[2016-08-13] VITALS (8 sets, daily range): BP systolic 118–164; BP diastolic 57–88; PULSE 79–95; RESP 18–20; TEMP 97.5–99.1; O2SAT 95–97
[2016-08-13] MEDS: metroNIDAZOLE 500 MG INJ 100 ML IV SCH ×5 (00:34→23:07)
[2016-08-13] MEDS: CIPROFLOXACIN 400 MG PREMIX 200 ML IV SCH ×2 (04:33→17:00)
[2016-08-13 06:35] LABS: ALKALINE PHOSPHATASE 348 U/L (45-117); ALT (GPT) 18 U/L (10-53); ANION GAP 8 MEQ/L (5-15); AST (GOT) 24 U/L (15-37); BICARBONATE 28.1 MEQ/L (21.0-32.0); BLOOD UREA NITROGEN 6 MG/DL (7-18); CHLORIDE 95 MEQ/L (98-107); GLOMERULAR FILTRATION RATE 133 ML/MIN (>89); POTASSIUM 3.3 MEQ/L (3.5-5.1); SODIUM (NA) 131 MEQ/L (136-145); TOTAL BILIRUBIN ADULT 0.8 MG/DL (0.2-1.0)
[2016-08-13] MEDS: SODIUM CHLORIDE 0.9% FLUSH 10 ML FLUSH IV FLUSH SCH ×2 (09:00→20:02)
[2016-08-13] MEDS: PANTOPRAZOLE SOD 40 MG DELAYED RELEASE TAB PO SCH (10:23)
--- NOTE | 2016-08-13 15:43 | HHI.PR ---
Subjective Remarks Follow-up for suspected malignant ascites. Patient seen with family at bedside with the patient's permission. Patient seen with [facility] translation services. The patient complains of worsening abdominal distention and bloating today. She has some mild leg swelling. She has some nausea and poor appetite. Cytology findings discussed with the patient, all questions answered. Objective Vitals Vital Signs Date Time Temp Pulse Resp B/P Pulse Ox O2 Delivery O2 Flow Rate FiO2 08/13/16 12:00 97.5 79 20 118/57 97 08/13/16 08:00 98.4 87 20 133/79 95 08/13/16 04:00 98.1 80 19 147/81 96 08/13/16 00:39 92 08/13/16 00:06 98.0 84 19 164/88 96 08/12/16 21:12 98.3 81 20 157/85 96 Result Diagram: 08/11/16 0717 08/13/16 0445 Objective Remarks GENERAL: Well-developed well-nourished. In no acute distress. SKIN: Warm and dry. No lesions noted. HEENT: Normocephalic. Pupils equal and round. Mucous membranes pink and moist. CARDIOVASCULAR: Regular rate and rhythm. No murmur appreciated. RESPIRATORY: No accessory muscle use. Clear to auscultation. Breath sounds equal bilaterally. GASTROINTESTINAL: Abdomen soft, generalized abdominal TTP worse in the RUQ, moderately distended. Bowel sounds x4. MUSCULOSKELETAL: No obvious deformities. No clubbing or cyanosis. Trace edema. NEUROLOGICAL: Awake and alert. No focal neurological deficits. Moves upper and lower extremities spontaneously. Normal speech. PSYCHIATRIC: Appropriate mood and affect; insight and judgment normal. A/P Problem List: (1) Abdominal pain ICD Code: R10.9 Status: Acute Assessment and Plan 56-year-old female with history of CBD stricture s/p ERCP with stent placement 1 week ago presents with abdominal pain, nausea/vomiting Symptomatic ascites: Concern for malignancy. No hx of Alcohol use or cirrhosis. Imaging reviewed: CT abd showed Silastic biliary stent now present and appears appropriately positioned; Decreased intrahepatic biliary distention, now mild; Increased ascites, moderate; mild to moderate body wall edema/anasarca developing; Mild enteritis/colitis possible versus reactive wall thickening from the ascites. HIDA 08/10 shows nonvisualization of the gallbladder. -Consulted gastroenterology, Discussed with Dr. Whitehead, recommends awaiting cytology results and patient may need to have EUS with Dr. Samaniego next week. -Surgical oncology, Dr. Wylie, consulted. Not a good surgical candidate for cholecystectomy at this time. Symptoms not c/w cholecystitis at this time. -s/p U/S guided abdominal paracentesis 08/11 removed 5L green cloudy fluid, WBC 1320, RBC 897, cytology with features consistent with a non-small cell neoplasm -tumor markers remarkable for CA-125 elevated at 338 -continue IV cipro/flagyl -supportive treatment with pain control and antiemetics prn. Simethicone prn. -Diuresis with Lasix for ascites -Consult oncology and palliative care Acute Colitis: seen on CT abdomen as above -Continue antibiotics with IV Cipro/Flagyl -diet as tolerated per gastroenterology Recent High Grade CBD Stricture: s/p ERCP with stent placement 07/31. Pathology revealed rare atypical cells present in the background of numerous glandular epithelial cells, malignancy cannot be excluded. LFTs have been trending down since stent placement. CT abd showed biliary stent appropriately positioned, decreased biliary distention, no pancreatitis. -Gastroenterology on board -Continue to monitor LFTs, stable, follow-up CMP. Leukocytosis with left shift: suspect from dehydration. Afebrile. -Given IVF and leukocytosis resolved. Hyponatremia: likely secondary to dehydration -Na 126 upon arrival -given IVF -improved to Na 131 -continue to monitor Hypokalemia: Secondary to poor by mouth intake. Potassium 3.3. Replace orally. Follow-up BMP. DVT prophylaxiswith Lovenox Discharge Planning Discussed with case management, consulted for assistance with discharge plan. Problem Qualifiers (1) Abdominal pain: Qualified Code: R10.11 - Right upper quadrant abdominal pain Jason Burton Aug 13, 2016 15:43
[2016-08-13] MEDS ORDERED: POTASSIUM CHLORIDE 20 MEQ CONTROLLED RELEASE TAB PO ONE (15:45)
[2016-08-13] MEDS: FUROSEMIDE 20 MG TAB PO SCH ×2 (16:00→19:07)
--- NOTE | 2016-08-13 17:50 | PD.CONS ---
Consult Service Palliative Care Consult Requested By FROY Tong Primary Care Physician No Primary Care Physician . Reason for Consultation a. To assist with evaluation and management of symptoms including: Pain b. To assist medical decision maker(s) with: better understanding of current medical conditions; weighing benefits/burdens of medical treatment options; making medical treatment decisions. . HPI History of Present Illness History from patient facilitated via [employer] chief crna Jose Ramon. This 56-year-old female, with no known significant past medical history , presented to the emergency department initially on 07/28/16 with abdominal pain and weight loss. Her bilirubin was noted to be 5.5, and a CT scan revealed some small bowel loops. A hepatobiliary scan demonstrated a high-grade biliary obstruction, and a stent was placed. Ultrasound reported gallstones but no evidence of cholecystitis. Pathology from common bile duct cells revealed "atypical cells" and it noted that malignancy could not be excluded. The patient was discharged from the hospital on 08/05/16. She did not follow up with any physicians outside of the hospital since then. On 08/10/16, the patient returned to the emergency department with worsening abdominal pain and abdominal distention. Findings included: * Moderate pain * Temp 99.8, pulse 1:30, respirations 20, blood pressure 154/84, oxygen saturation 96% on room air * White count 14.1, hemoglobin 12.5 * Sodium 126, creatinine 0.81, albumin 2.7 * Bilirubin 1.6 * CT scan reveals the stent that was placed in the previous week, and also reveals moderate ascites The patient was admitted to the hospital, and she underwent paracentesis the following day, yielding 5000 cc of green cloudy fluid. During this hospitalization, the CA-125 result was 338. Today, pathology reported the cytology from the paracentesis, indicating non-small cell cancer present. Consults were then placed for oncology, and for Palliative Care. We were consulted to assist with symptom management, and to enter into discussions with patient and her family regarding the extent of her illness, as well as the benefits and burdens of the various treatment options. . Function/Cognitive Trajectory The patient was functioning independently prior to this admission, ambulating, managing her own food, clothing, self-care. . Review of Systems Constitutional: COMPLAINS OF: Weight loss Endocrine: DENIES: Polyuria Eyes: DENIES: Eye inflammation Ears, nose, mouth, throat: DENIES: Epistaxis Respiratory: DENIES: Cough, Shortness of breath Cardiovascular: COMPLAINS OF: Lower Extremity Edema, DENIES: Dyspnea on Exertion Gastrointestinal: COMPLAINS OF: Nausea, DENIES: Bloody stools, Constipation, Diarrhea, Vomiting blood Genitourinary: DENIES: Hematuria Musculoskeletal: DENIES: Back pain, Neck pain, Decreased range of motion Integumentary: DENIES: Rash Hematologic/Lymphatics: DENIES: Bruising Immunologic/Allergic: DENIES: Urticaria Neurologic: DENIES: Localized weakness, Seizures, Speech Problems Psychiatric: DENIES: Confusion, Hallucinations, Agitation Past Family Social History Coded Allergies: Penicillin (Verified Allergy, Unknown, 08/09/16) Past Medical History * Non-small cell neoplasm in ascitic cytology * Recent biliary obstruction, stent placement * Abdominal pain * Hyponatremia * Cholelithiasis . Past Surgical History * ERCP with brushings/stent placement, July 2016 * Paracentesis 08/11/16 . Reported Medications Patient denies any prescription medications at home . Current Medications Medications (Trade) Dose Ordered Sig/Anastacio Route Start Time Stop Time Status Last Admin (NS Flush) 2 ml UNSCH PRN IV FLUSH 08/09/16 20:45 08/11/16 03:00 (NS Flush) 2 ml BID IV FLUSH 08/09/16 21:00 08/12/16 20:59 (Narcan Inj) 0.4 mg UNSCH PRN IV 08/09/16 20:45 Hydromorphone HCl 0.2 mg 0.2 mg Q4H PRN IV PUSH 08/09/16 23:45 08/12/16 06:25 Ciprofloxacin/ Dextrose 200 ml @ 200 mls/hr Q12H IV 08/10/16 05:00 08/13/16 04:33 (Flagyl 500 Mg Inj) 100 ml @ 100 mls/hr Q6H IV 08/10/16 06:00 08/13/16 12:00 (Protonix) 40 mg DAILY PO 08/10/16 09:00 08/13/16 10:23 (Mylicon Chew) 80 mg PCHS PRN CHEW 08/12/16 14:00 (Lasix) 20 mg BID@09,18 PO 08/13/16 15:45 08/13/16 16:00 Family History The patient's mother is alive and living in [place]. The patient's father about 2 years ago of an unknown type of cancer. Patient does not know of any intra-abdominal malignancies in her family. . Substance Use Tobacco: None Alcohol: None Prescription med abuse: None Illicits: None . Psychosocial History Patient was born and raised in [place]. She left [place] about 23 years ago, and has lived here in this area for the past 3 years. She currently lives with one of her brothers. The patient was once, and reports that her a few years ago. She said she has 2 children, both of whom live in [place]. . Spiritual/Cultural Factors The patient reports that she has a strong shayne in God, and that she has a Faith background. . Living Will: Never completed Health Care Surrogate: Never completed Durable Power of Customer Counter Representative: Never completed Today's verbally stated goals: The patient is looking forward to the oncology consultation to learn if there are additional tests that need to be done and whether there is specific treatment that might be helpful. . Family/friends goals: Her family supports her wishes. . Ethical and Legal Issues There are no ethical issues that would impact her care or decision-making at this time. The patient has capacity for decision-making at this time. If she loses that capacity, decision-making would fall to her 2 children in [place]. She did not wish to designate a health care surrogate at this time. . Physical Exam Vital Signs Date Time Temp Pulse Resp B/P Pulse Ox O2 Delivery O2 Flow Rate FiO2 08/13/16 16:13 98.1 95 18 144/70 96 08/13/16 12:00 97.5 79 20 118/57 97 08/13/16 08:00 98.4 87 20 133/79 95 08/13/16 04:00 98.1 80 19 147/81 96 08/13/16 00:39 92 08/13/16 00:06 98.0 84 19 164/88 96 08/12/16 21:12 98.3 81 20 157/85 96 Exam CONSTITUTIONAL/GENERAL: This is an adequately nourished patient, in no apparent distress. TUBES/LINES/DRAINS: Peripheral IV SKIN: No jaundice, rashes, or lesions. Ecchymoses on upper extremities. No wounds seen anteriorly. Skin temperature appropriate. Not diaphoretic. HEAD: Atraumatic. Normocephalic. EYES: Pupils equal and round and reactive. Extraocular motions intact. No scleral icterus. No injection or drainage. Fundi not examined. ENT: Hearing grossly normal. Nose without bleeding or purulent drainage. Throat without visible erythema, exudates, masses, or lesions. NECK: Trachea midline. Supple, nontender. No palpable thyroid enlargement or nodularity. CARDIOVASCULAR: Regular rate and rhythm without murmurs, gallops, or rubs. No JVD. Peripheral pulses symmetric. RESPIRATORY/CHEST: Symmetric, unlabored respirations. Clear to auscultation. Breath sounds equal bilaterally. No wheezes, rales, or rhonchi. GASTROINTESTINAL: Abdomen soft, but moderately distended. No hepato-splenomegaly , or palpable masses. No guarding, but mild tenderness in the RUQ. Bowel sounds present. GENITOURINARY: Without palpable bladder distension. MUSCULOSKELETAL: Extremities without clubbing, cyanosis, or edema. No joint tenderness or effusion noted. No calf tenderness. No mottling or clubbing. LYMPHATICS: No palpable cervical or supraclavicular adenopathy. NEUROLOGICAL: Awake and alert. Motor and sensory grossly within normal limits. Follows commands. Cognitively sharp. Moves all extremities. PSYCHIATRIC: No obvious anxiety/depression. no apparent hallucinations or other psychotic thought process. . Diagnostic Tests Laboratory Laboratory Tests Test 08/11/16 08/11/16 08/11/16 08/13/16 02:25 07:17 09:20 04:45 Urine Color DARK-BROWN (YELLW/STRAW) Urine Turbidity HAZY (CLEAR) Urine pH 5.5 (5.0-8.5) Urine Specific [place] 1.030 (1.002-1.035) Urine Protein 30 mg/dL (NEG-TRACE) Urine Glucose (UA) NEG mg/dL (NEG) Urine Ketones TRACE mg/dL (NEG) Urine Occult Blood NEG (NEG) Urine Nitrite NEG (NEG) Urine Bilirubin SMALL (NEG) Urine Urobilinogen LESS THAN 2.0 MG/DL (LESS THAN 2.0) Urine Leukocyte Esterase NEG (NEG) Urine RBC 1 /hpf (0-3) Urine WBC 5 /hpf (0-5) Urine Squamous Epithelial <1 /hpf (0-5) Cells Urine Bacteria RARE /hpf (NONE) Urine Hyaline Casts 3 /lpf (RARE) Urine Granular Casts 8 /lpf (NONE) Urine Mucus MANY /lpf (OCC) Microscopic Urinalysis Comment CULT NOT INDICATED White Blood Count 7.2 TH/MM3 (4.0-11.0) Red Blood Count 3.81 MIL/MM3 (4.00-5.30) Hemoglobin 11.1 GM/DL (11.6-15.3) Hematocrit 33.2 % (35.0-46.0) Mean Corpuscular Volume 87.3 FL (80.0-100.0) Mean Corpuscular Hemoglobin 29.1 PG (27.0-34.0) Mean Corpuscular Hemoglobin 33.4 % Concent (32.0-36.0) Red Cell Distribution Width 15.3 % (11.6-17.2) Platelet Count 502 TH/MM3 (150-450) Mean Platelet Volume 9.0 FL (7.0-11.0) Neutrophils (%) (Auto) 73.4 % (16.0-70.0) Lymphocytes (%) (Auto) 10.7 % (9.0-44.0) Monocytes (%) (Auto) 11.7 % (0.0-8.0) Eosinophils (%) (Auto) 3.2 % (0.0-4.0) Basophils (%) (Auto) 1.0 % (0.0-2.0) Neutrophils # (Auto) 5.3 TH/MM3 (1.8-7.7) Lymphocytes # (Auto) 0.8 TH/MM3 (1.0-4.8) Monocytes # (Auto) 0.8 TH/MM3 (0-0.9) Eosinophils # (Auto) 0.2 TH/MM3 (0-0.4) Basophils # (Auto) 0.1 TH/MM3 (0-0.2) CBC Comment DIFF FINAL Differential Comment Sodium Level 130 MEQ/L 131 MEQ/L (136-145) (136-145) Potassium Level 3.8 MEQ/L 3.3 MEQ/L (3.5-5.1) (3.5-5.1) Chloride Level 94 MEQ/L 95 MEQ/L (98-107) (98-107) Carbon Dioxide Level 26.8 MEQ/L 28.1 MEQ/L (21.0-32.0) (21.0-32.0) Anion Gap 9 MEQ/L (5-15) 8 MEQ/L (5-15) Blood Urea Nitrogen 12 MG/DL (7-18) 6 MG/DL (7-18) Creatinine 0.54 MG/DL 0.48 MG/DL (0.50-1.00) (0.50-1.00) Estimat Glomerular Filtration 116 ML/MIN 133 ML/MIN Rate (>89) (>89) Random Glucose 103 MG/DL 114 MG/DL (74-106) (74-106) Calcium Level 8.3 MG/DL 7.6 MG/DL (8.5-10.1) (8.5-10.1) Total Bilirubin 1.1 MG/DL 0.8 MG/DL (0.2-1.0) (0.2-1.0) Aspartate Amino Transf 51 U/L (15-37) 24 U/L (15-37) (AST/SGOT) Alanine Aminotransferase 34 U/L (10-53) 18 U/L (10-53) (ALT/SGPT) Alkaline Phosphatase 633 U/L 348 U/L (45-117) (45-117) Total Protein 7.3 GM/DL 6.3 GM/DL (6.4-8.2) (6.4-8.2) Albumin 2.2 GM/DL 1.8 GM/DL (3.4-5.0) (3.4-5.0) Tumor Marker Alpha Fetoprotein 2.1 NG/ML (0.5-8.0) Carcinoembryonic Antigen 1.1 NG/ML (0.2-5.0) CA 19-9 Antigen 14.4 U/ML (0.0-35.0) CA 125 Antigen 338.4 U/ML (0.0-30.2) Peritoneal Fluid WBC 1320 /MM3 (0-10) Peritoneal Fluid RBC 897 /MM3 (0-0) Peritoneal Fluid Neutrophils 10 % Peritoneal Fluid Lymphocytes 50 % Peritoneal Fluid Monocytes 11 % Peritoneal Fluid Mesothelial 1 % Cells Peritoneal Fluid Histiocytes 23 % Peritoneal Fluid Other Cells 6 % Peritoneal Fluid Comment Peritoneal Fluid Total Protein 4.6 GM/DL Peritoneal Fluid Albumin 2.0 G/DL Peritoneal Fluid LDH 278 U/L Peritoneal Fluid Glucose 87 MG/DL Peritoneal Fluid Amylase 23 U/L Result Diagram: 08/11/16 0717 08/13/16 0445 Microbiology Microbiology Date/Time Procedure Status Source Growth 08/11/16 09:20 Gram Stain - Final Resulted Fluid Peritoneal Fluid 08/11/16 09:20 Body Fluid Culture - Preliminary Resulted Fluid Peritoneal Fluid NO GROWTH IN 48 HOURS. Imaging Last Impressions Cyst Biopsy Asp-Paracentesis US 08/11/16 0000 Signed Impressions: Service Date/Time: Thursday, August 11, 2016 08:34 - CONCLUSION: Uncomplicated ultrasound guided paracentesis. Fluid was sent for ordered studies. Malignancy is suspected. Trell Souza MD FACR Hepatobiliary Scan Nuclear Medicine 08/09/16 0000 Signed Impressions: Service Date/Time: Tuesday, August 09, 2016 20:50 - CONCLUSION: Nonvisualization of the gallbladder however the patient does have a stent in place. I reviewed the CT scan from the same day which failed to demonstrate any obvious gallbladder wall thickening. Delayed images of the gallbladder will be performed. Matt Tovar MD ADDENDUM: COMPARISON: BILIARY SCAN ([facility]), July 30, 2016, 13:41. A delayed image in anterior and right lateral projection was performed at 16 hours. There is no activity seen within the lumen of gallbladder. Since the patient has an indwelling biliary stent, absence of gallbladder visualization is nonpredictive with respect to cystic duct obstruction. Bert Brandon MD Abdomen/Pelvis CT 08/09/16 0000 Signed Impressions: Service Date/Time: Tuesday, August 09, 2016 17:46 - CONCLUSION: 1. Silastic biliary stent now present and appears appropriately positioned. Decreased intrahepatic biliary distention, now mild. No pancreatitis or other acute complication demonstrated. 2. Increased ascites, moderate. Also mild to moderate body wall edema/anasarca developing. 3. Mild enteritis/colitis possible versus reactive wall thickening from the ascites. In any event, no obstruction demonstrated. Fadi Yin MD Procedures Paracentesis 08/11/16 . Patient/Family Conference Present at Family Conference: Patient's niece Mikayla, and patient's brother Herman. Also present was Status chief crna Jose Ramon by speaker phone. . Family Conference Time (mins): 39 Family Conference Location: Bedside Issues Discussed: * Palliative care role, purpose, approach * Additional medical, psychosocial, and spiritual history * Patients general health, functional status, and cognitive changes in the months leading up to the current hospitalization * Patient/family understanding of the current medical problems * Patient/family understanding of prognosis * Patients goals of care as best understood from advance directives and/or conversations and/or values * Current medical treatment options and benefits/burdens of those options * Likely scenarios comparing ongoing aggressive care with a transition to comfort measures only * Questions answered to the best of my ability * Palliative care contact information provided Patient and family want to continue aggressive goals, at least pending oncology evaluation and recommendations. . Assessment and Plan Disease Oriented Problem List: (1) non-small cell neoplasm in ascitic cytology (2) recent biliary obstruction, stent placement (3) abdominal pain (4) hyponatremia (5) cholelithiasis Symptom Scale: (1) pain Pertinent Non-Medical Issues Psychosocial: female who lives with her brother. Originally from [place] , [place]-speaking. HER-2 children are in [place]. Spiritual: Spirituality is very important to her; she is Faith. Legal: The patient has capacity for decision-making at this time. If she loses that capacity, decision-making would fall to her 2 children in [place]. She did not wish to designate a health care surrogate at this time. Ethical issues impacting care: None . Important Contacts Sister: Kenya Hong [phone] . Prognosis The patient has had worsening abdominal pain, malignant ascites, and weight loss over the past couple months. She now has non-small cell malignant cells in her ascitic fluid, and it would appear that her prognosis is poor. Oncology consultation is pending. . Code Status: Full Code Plan * FULL CODE * DECISION-MAKING: The patient has capacity for decision-making at this time. If she loses that capacity, decision-making would fall to her 2 children in [place]. She did not wish to designate a health care surrogate at this time; this will be addressed again in the upcoming days. * GOALS: She wants to continue aggressive care for now. The patient is looking forward to the oncology consultation to learn if there are additional studies/ tests to be done, and to learn what treatments may or may not be helpful and/or available. * SYMPTOMS: She reports that her pain is much improved since the paracentesis and on the current pain medications that she is been receiving. She does not want additional medicines, and I have no further medication recommendations at this time. * Oncology consultation has been ordered, and the patient and her family are eagerly awaiting their opinions. * Palliative Care will continue to follow the patient during this hospitalization. Time Spent Total Floor Time (mins): 79 Face to Face Time (mins): 44 >50% Counseling/Coord of Care: Yes Thank you for the opportunity to participate in the care of Ms. Guo. Attestation To help prompt me to consider important information that might be impacting today's encounter and assessment, information from prior notes written by myself or my colleagues may have been "brought forward" into today's note. My signature on this note, however, is an attestation that I personally performed the exam, history, and/or decision-making noted today, and, unless otherwise indicated, the interactions with patient, family, and staff as well as the review of records all occurred today. I also attest that the listed assessment and stated plan reflect my best clinical judgment today based on the combination of historical information, prior notes, and today's exam/ interactions. When time spent is documented, it refers only to time spent today by the signer, or if indicated, combined time spent today by collaborating physician/nurse practitioner. Paige Ocampo MD Aug 13, 2016 17:50
--- NOTE | 2016-08-13 18:08 | HHI.GIFU ---
Subjective Remarks Resting in bed. No pain, but c/o worsening abdominal distention. Not hungry, but no n/v. No diarrhea. Objective Vitals I&O Vital Signs Date Time Temp Pulse Resp B/P Pulse Ox O2 Delivery O2 Flow Rate FiO2 08/13/16 16:13 98.1 95 18 144/70 96 08/13/16 12:00 97.5 79 20 118/57 97 08/13/16 08:00 98.4 87 20 133/79 95 08/13/16 04:00 98.1 80 19 147/81 96 08/13/16 00:39 92 08/13/16 00:06 98.0 84 19 164/88 96 08/12/16 21:12 98.3 81 20 157/85 96 Laboratory Laboratory Tests Test 08/13/16 04:45 Sodium Level 131 Potassium Level 3.3 Chloride Level 95 Carbon Dioxide Level 28.1 Anion Gap 8 Blood Urea Nitrogen 6 Creatinine 0.48 Estimat Glomerular Filtration 133 Rate Random Glucose 114 Calcium Level 7.6 Total Bilirubin 0.8 Aspartate Amino Transf 24 (AST/SGOT) Alanine Aminotransferase 18 (ALT/SGPT) Alkaline Phosphatase 348 Total Protein 6.3 Albumin 1.8 Date/Time Procedure Status Source Growth 08/11/16 09:20 Gram Stain - Final Resulted Fluid Peritoneal Fluid 08/11/16 09:20 Body Fluid Culture - Preliminary Resulted Fluid Peritoneal Fluid NO GROWTH IN 48 HOURS. 08/09/16 20:05 Aerobic Blood Culture - Preliminary Resulted Blood Peripheral NO GROWTH IN 4 DAYS 08/09/16 20:05 Anaerobic Blood Culture - Preliminary Resulted Blood Peripheral NO GROWTH IN 4 DAYS Imaging Last Impressions Cyst Biopsy Asp-Paracentesis US 08/11/16 0000 Signed Impressions: Service Date/Time: Thursday, August 11, 2016 08:34 - CONCLUSION: Uncomplicated ultrasound guided paracentesis. Fluid was sent for ordered studies. Malignancy is suspected. Trell Souza MD FACR Hepatobiliary Scan Nuclear Medicine 08/09/16 0000 Signed Impressions: Service Date/Time: Tuesday, August 09, 2016 20:50 - CONCLUSION: Nonvisualization of the gallbladder however the patient does have a stent in place. I reviewed the CT scan from the same day which failed to demonstrate any obvious gallbladder wall thickening. Delayed images of the gallbladder will be performed. Matt Tovar MD ADDENDUM: COMPARISON: BILIARY SCAN ([facility]), July 30, 2016, 13:41. A delayed image in anterior and right lateral projection was performed at 16 hours. There is no activity seen within the lumen of gallbladder. Since the patient has an indwelling biliary stent, absence of gallbladder visualization is nonpredictive with respect to cystic duct obstruction. Bert Brandon MD Abdomen/Pelvis CT 08/09/16 0000 Signed Impressions: Service Date/Time: Tuesday, August 09, 2016 17:46 - CONCLUSION: 1. Silastic biliary stent now present and appears appropriately positioned. Decreased intrahepatic biliary distention, now mild. No pancreatitis or other acute complication demonstrated. 2. Increased ascites, moderate. Also mild to moderate body wall edema/anasarca developing. 3. Mild enteritis/colitis possible versus reactive wall thickening from the ascites. In any event, no obstruction demonstrated. Fadi Yin MD Physical Exam HEENT: Normocephalic; atraumatic; no jaundice. CHEST: CTA. CARDIAC: RRR ABDOMEN: Soft, distended, mild RUQ tenderness; no hepatosplenomegaly; bowel sounds are present in all four quadrants. Ascites EXTREMITIES: Mild BLE, R>L edema. SKIN: Normal; no rash; no jaundice. BASKET FILLER: No focal deficits; alert and oriented times three. Assessment and Plan Plan ASSESSMENT: - Abdominal pain, Nausea, Decreased appetite, Early Satiety. Pt was recently hospitalized for high grade CBD stricture and had ERCP with brushings and stent placement on 07/31/16 and was discharged on 08/03. She reports that her pain did improve at discharge, but never completely went away and it worsened with fevers/chills about 3 days ago. She is not able to describe this, but it does seem to be more diffuse. Abdomen/Pelvis CT (08/09/16) ----> 1. Silastic biliary stent now present and appears appropriately positioned. Decreased intrahepatic biliary distention, now mild. No pancreatitis or other acute complication demonstrated. 2. Increased ascites, moderate. Also mild to moderate body wall edema/anasarca developing. 3. Mild enteritis/colitis possible versus reactive wall thickening from the ascites. In any event, no obstruction demonstrated. [facility] (08/09/16)----> Nonvisualization of the gallbladder however the patient does have a stent in place. I reviewed the CT scan from the same day which failed to demonstrate any obvious gallbladder wall thickening. Delayed images of the gallbladder will be performed. 13:41: A delayed image in anterior and right lateral projection was performed at 16 hours. There is no activity seen within the lumen of gallbladder. Since the patient has an indwelling biliary stent, absence of gallbladder visualization is nonpredictive with respect to cystic duct obstruction. Of note, her LFTs have been trending down since her stent placement. GS following, does not feel she is a candidate to have cystectomy. Pain has improved since paracentesis yesterday. Cipro/Flagyl. - Malignant ascites. Pt reports fevers/chills x 3 days. Cyst Biopsy Asp- Paracentesis US (08/11/16)----> Uncomplicated ultrasound guided paracentesis with 5000cc of fluid removed. Cytology (08/11/16)---> features consistent with a non small cell neoplasm- scattered large atypical cells are prsent in a background of mesothelial cells and inflammatory cells, with substantially enlarged and irregular nuclei with nucleoli, some multinucleated forms are noted, suspicious for a non-small cell neoplasm. Pt developing more abdominal distention/ ascites. Was started on Lasix 20mg po BID. Will add Spironolactone. AFP 2.1, CEA 1.1, Ca19-9 14.4, Ca 125 338.4. - Leukocytosis. BCx no growth 4 days. Flagyl/Cipro. Peritoneal fluid no growth 48h. - High grade CBD stricture. S/P ERCP with brushings/stent placement (07/31/16)---- > intra hepatic duct dilatation, s/p brushings, s/p stent placement. Pathology revealed rare atypical cells present in the background of numerous glandular epithelial cells, malignancy cannot be excluded. LFTs have been trending down since stent placement. AFP during last hospitalization was 2.4. Ca19-9 10.7 , CEA 1.2, Ca 125 338.4. - ? Underlying liver disease, ?Cirrhosis. Hepatitis panel negative. ARAMIS negative. AMA < 20.0, ASMA negative, AFP 2.1, Iron saturation 27.9, Ferritin 41, Ceruloplasmin 36, Alpha 1 Antitrypsin 191. PLAN: - 2 gram sodium diet - Add Spironolactone - Cont. Lasix - Cont. PPI - Cont. Flagyl/Cipro - Monitor labs - Await oncology evaluation - Palliative care consulted - GS following - Supportive care - Further recommendations to follow based on results of above - Pt seen and examined by Dr. Whitehead and myself and this note is written on her behalf Elena Lowery Aug 13, 2016 18:08
[2016-08-13] MEDS: HYDROmorphone HCL PF 1 MG/ML VIAL IV PUSH PRN (23:07)
[2016-08-14 00:26] VITALS: BP 138/77; PULSE 84; RESP 20; TEMP 98.5; O2SAT 95
[2016-08-14] MEDS: CIPROFLOXACIN 400 MG PREMIX 200 ML IV SCH (04:38)
[2016-08-14 04:52] VITALS: BP 136/79; PULSE 84; RESP 20; TEMP 98.6; O2SAT 96
[2016-08-14] MEDS: metroNIDAZOLE 500 MG INJ 100 ML IV SCH ×2 (05:38→11:32)
[2016-08-14 07:22] LABS: ALKALINE PHOSPHATASE 326 U/L (45-117); ALT (GPT) 16 U/L (10-53); ANION GAP 8 MEQ/L (5-15); AST (GOT) 25 U/L (15-37); BICARBONATE 27.9 MEQ/L (21.0-32.0); BLOOD UREA NITROGEN 6 MG/DL (7-18); CHLORIDE 96 MEQ/L (98-107); GLOMERULAR FILTRATION RATE 133 ML/MIN (>89); MAGNESIUM 1.9 MG/DL (1.5-2.5); POTASSIUM 3.6 MEQ/L (3.5-5.1); SODIUM (NA) 132 MEQ/L (136-145); TOTAL BILIRUBIN ADULT 0.7 MG/DL (0.2-1.0)
[2016-08-14] MEDS: PANTOPRAZOLE SOD 40 MG DELAYED RELEASE TAB PO SCH (08:25)
[2016-08-14] MEDS: FUROSEMIDE 20 MG TAB PO SCH ×2 (08:25→18:44)
[2016-08-14] MEDS: SODIUM CHLORIDE 0.9% FLUSH 10 ML FLUSH IV FLUSH SCH ×2 (08:26→21:00)
[2016-08-14] MEDS: SPIRONOLACTONE 25 MG TAB PO SCH ×2 (08:26→18:44)
[2016-08-14 12:00] VITALS: BP 137/75; PULSE 87; RESP 18; TEMP 96.3; O2SAT 96
[2016-08-14] MEDS: HYDROmorphone HCL PF 1 MG/ML VIAL IV PUSH PRN ×2 (13:13→23:35)
--- NOTE | 2016-08-14 15:13 | HHI.PR ---
Subjective Remarks Follow-up for malignant ascites. Patient seen with [facility], [place] translation services. The patient feels like abdominal distention is a little bit better today, however she still has right upper quadrant pain. She has been having good urine output. She also reports that she's been having loose stools today. All questions answered. Objective Vitals Vital Signs Date Time Temp Pulse Resp B/P Pulse Ox O2 Delivery O2 Flow Rate FiO2 08/14/16 12:00 96.3 87 18 137/75 96 08/14/16 04:52 98.6 84 20 136/79 96 08/14/16 00:26 98.5 84 20 138/77 95 08/13/16 20:00 90 08/13/16 19:15 99.1 89 20 163/82 96 08/13/16 16:13 98.1 95 18 144/70 96 I/O 08/13/16 08/13/16 08/13/16 08/14/16 08/14/16 08/14/16 07:00 15:00 23:00 07:00 15:00 23:00 Intake Total 480 ml Balance 480 ml Intake Oral 480 ml # Voids 3 Result Diagram: 08/11/16 0717 08/14/16 0600 Imaging Last Impressions Cyst Biopsy Asp-Paracentesis US 08/11/16 0000 Signed Impressions: Service Date/Time: Thursday, August 11, 2016 08:34 - CONCLUSION: Uncomplicated ultrasound guided paracentesis. Fluid was sent for ordered studies. Malignancy is suspected. Trell Souza MD FACR Hepatobiliary Scan Nuclear Medicine 08/09/16 0000 Signed Impressions: Service Date/Time: Tuesday, August 09, 2016 20:50 - CONCLUSION: Nonvisualization of the gallbladder however the patient does have a stent in place. I reviewed the CT scan from the same day which failed to demonstrate any obvious gallbladder wall thickening. Delayed images of the gallbladder will be performed. Matt Tovar MD ADDENDUM: COMPARISON: BILIARY SCAN (HIDA), July 30, 2016, 13:41. A delayed image in anterior and right lateral projection was performed at 16 hours. There is no activity seen within the lumen of gallbladder. Since the patient has an indwelling biliary stent, absence of gallbladder visualization is nonpredictive with respect to cystic duct obstruction. Bert Brandon MD Abdomen/Pelvis CT 08/09/16 0000 Signed Impressions: Service Date/Time: Tuesday, August 09, 2016 17:46 - CONCLUSION: 1. Silastic biliary stent now present and appears appropriately positioned. Decreased intrahepatic biliary distention, now mild. No pancreatitis or other acute complication demonstrated. 2. Increased ascites, moderate. Also mild to moderate body wall edema/anasarca developing. 3. Mild enteritis/colitis possible versus reactive wall thickening from the ascites. In any event, no obstruction demonstrated. Fadi Yin MD Objective Remarks GENERAL: Well-developed well-nourished. In no acute distress. SKIN: Warm and dry. No lesions noted. HEENT: Normocephalic. Pupils equal and round. Mucous membranes pink and moist. CARDIOVASCULAR: Regular rate and rhythm. No murmur appreciated. RESPIRATORY: No accessory muscle use. Clear to auscultation. Breath sounds equal bilaterally. GASTROINTESTINAL: Abdomen soft, generalized abdominal TTP worse in the RUQ, mild to moderate distention. Bowel sounds x4. MUSCULOSKELETAL: No obvious deformities. No clubbing or cyanosis. Trace edema. NEUROLOGICAL: Awake and alert. No focal neurological deficits. Moves upper and lower extremities spontaneously. Normal speech. PSYCHIATRIC: Appropriate mood and affect; insight and judgment normal. A/P Problem List: (1) Abdominal pain ICD Code: R10.9 Status: Acute Assessment and Plan 56-year-old female with history of CBD stricture s/p ERCP with stent placement 1 week ago presents with abdominal pain, nausea/vomiting Symptomatic ascites: Concern for malignancy. No hx of Alcohol use or cirrhosis. Imaging reviewed: CT abd showed Silastic biliary stent now present and appears appropriately positioned; Decreased intrahepatic biliary distention, now mild; Increased ascites, moderate; mild to moderate body wall edema/anasarca developing; Mild enteritis/colitis possible versus reactive wall thickening from the ascites. HIDA 08/10 shows nonvisualization of the gallbladder. -Consulted gastroenterology, Discussed with Dr. Whitehead, recommends awaiting cytology results and patient may need to have EUS with Dr. Samaniego next week. -Surgical oncology, Dr. Wylie, consulted. Not a good surgical candidate for cholecystectomy at this time. Symptoms not c/w cholecystitis at this time. 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 Simethicone prn. -Diuresis with Lasix and Aldactone for ascites -Consulted oncology and palliative care, appreciate input Acute Colitis: seen on CT abdomen as above -On IV Cipro/Flagyl for gastroenterology, will follow up with GI regarding diarrhea, hold antibiotics for now -diet as tolerated per gastroenterology Recent High Grade CBD Stricture: s/p ERCP with stent placement 07/31. Pathology revealed rare atypical cells present in the background of numerous glandular epithelial cells, malignancy cannot be excluded. LFTs have been trending down since stent placement. CT abd showed biliary stent appropriately positioned, decreased biliary distention, no pancreatitis. -Gastroenterology on board -Continue to monitor LFTs, stable, follow-up CMP. Leukocytosis with left shift: suspect from dehydration. Afebrile. -Given IVF and leukocytosis resolved. Hyponatremia: likely secondary to dehydration -Na 126 upon arrival -s/p IVF -improving, Na 132 -continue to monitor Hypokalemia: Secondary to poor by mouth intake. Potassium 3.3. Replaced orally. Repeat 3.6. Magnesium within normal limits. Diarrhea: Check C. difficile, discussed with RN. Hold antibiotics for now. DVT prophylaxiswith Lovenox Discharge Planning Case management consulted for assistance with discharge plan. Problem Qualifiers (1) Abdominal pain: Qualified Code: R10.11 - Right upper quadrant abdominal pain Jason Burton Aug 14, 2016 15:13
[2016-08-14 16:00] VITALS: BP 142/82; PULSE 104; RESP 18; TEMP 97.1; O2SAT 96
--- NOTE | 2016-08-14 19:26 | MB ---
cc: ARVIN ASENCIO MD HEMATOLOGY ONCOLOGY CONSULTATION NOTE DATE OF CONSULTATION 08/14/16 DATE OF 1960 REASON FOR CONSULTATION Malignant ascites with ascitic fluid concerning for non-small cell carcinoma. CHIEF COMPLAINT Ms. Guo reports several week history of increasing abdominal pain, distension and pain when moving her bowels. She reports also changes in her bowel habits as her stools have been less formed. HISTORY OF PRESENT ILLNESS Ms. Guo is a 56-year-old female who is unable to speak Citizen [place] and I am unable to speak her [place] tribe language which is French. Most of this interview was conducted through an securities dealer. Ms. Guo reports being in her usual excellent state of health up until a few weeks ago when she began to notice abdominal pain. The pain initially started in the left lower part of her abdomen. She reports also noting pain when she defecated. She noticed a change in the consistency and form of the stool which was softer than normal. She reports she would have the urge to defecate whenever she would eat something. The patient denies having had any hematochezia or melena. Shortly thereafter, she began to notice diffuse pain in the abdomen involving all four quadrants. She also began to notice abdominal distension. She has developed jaundice as well. She presented to the emergency department earlier this month and was evaluated in the emergency department in early August. She was noted to have jaundice. She underwent ultrasound of the gallbladder which revealed cholelithiasis without sonographic evidence of acute cholelithiasis. Trace amount of ascites was identified. She subsequently underwent CT of the abdomen and pelvis on 07/28/2016 which revealed nonspecific thickening and enhancement of numerous loops of small bowel predominantly in the left abdomen. This was associated with mild ascites. She subsequently underwent an MRCP without contrast and this revealed a high grade stricture of the bile duct at the level of the confluence of the ducts. The patient was seen by GI and underwent ERCP with stent deployment in the common bile duct. This has resulted in normalization of her bilirubin levels as well as improvement in her alkaline phosphatase levels. The oncology service has been asked to see the patient because ascitic fluid indicated cytology consistent with a non-small cell neoplasm. The comments submitted by the interpreting pathologist indicated abnormal and irregular cells which were suspicious for non-small cell carcinoma. A minimal number of cells were appreciated within the cell block that was submitted for analysis. I have been asked to see this patient for further workup and evaluation. Thorough review of the imaging studies obtained thus far reveal no definite mass on CT abdomen and pelvis which have been contrast-enhanced. Her CA-125 level, however, is elevated at 338 which is close to 10 times the upper limit of normal. PAST MEDICAL HISTORY She denies any chronic medical comorbids. PAST SURGICAL HISTORY Other than paracentesis and recent EGD and ERCP she has had none. FAMILY HISTORY Father had some sort of cancer. The patient is not sure what type. SOCIAL HISTORY She has two children. She denies ever having been a smoker. She denies alcohol abuse. She reports working in various [employer]. ALLERGIES PENICILLIN - CAUSES RASHES MEDICATIONS Current inpatient, 1. Lasix 20 mg p.o. b.i.d. 2. Dilaudid 0.2 mg IV q.4 h as needed for pain. 3. Pantoprazole 40 mcg p.o. daily. 4. Simethicone 80 mg p.r.n. as needed for bloating 5. Spironolactone 25 mg p.o. b.i.d. REVIEW OF SYSTEMS A 13-point review of systems is obtained. Subjectively, she reports decreased appetite. She denies fevers, chills. HEENT: Denies soreness in the throat, difficulty swallowing. RESPIRATORY: Denies difficulty breathing, cough, hemoptysis CARDIOVASCULAR: Denies angina-like chest pain, PND, orthopnea. She has lower extremity swelling. GI: Reports abdominal distension, decreased appetite, pain while defecating, diffuse abdominal pain and jaundice. UROGENITAL: No complaints. MUSCULOSKELETAL: No complaints. [employer]: No focal sensory or motor deficits. PHYSICAL EXAMINATION VITAL SIGNS: Temperature 97.1 degrees Fahrenheit, heart rate 104 beats a minute, blood pressure is 142/82, respiratory rate 16, O2 sats 96% on room air. GENERAL APPEARANCE: Ms. Guo is A very pleasant 56-year-old middle-aged female. she is laying in bed. She appears to be in no acute distress. HEENT: Head atraumatic, normocephalic, conjunctivae are not pale. Sclerae are anicteric, EOMI, PERRLA, oral exam - no pharyngeal erythema. NECK: No palpable cervical or supraclavicular adenopathy. RESPIRATORY: Good air movement bilaterally, no added breath sounds. CARDIOVASCULAR: Regular rate and rhythm, S1-S2. No obvious murmurs, rubs or gallops. BREASTS: Performed in the presence of a female nurse sales merchandise associate. Breasts appear to have no skin changes, no masses, lumps or retraction noted. No actual lymphadenopathy. ABDOMEN: Belly is distended. She has tenderness in the right upper quadrant and the left upper quadrant. No definite organ enlargement is palpated. LOWER EXTREMITIES: Trace pretibial edema. No calf tenderness. [employer]: No focal sensory motor deficits. LABORATORY FINDINGS Blood work dated 08/14/2016: Sodium 132, potassium 3.6, chloride 96, bicarbonate 28, BUN six, creatinine 0.48, EGFR 110, calcium 7.8, magnesium 1.9, total bilirubin 0.7, AST 25, ALT 16, alkaline phosphatase 326, albumin 1.8, alpha-fetoprotein 2.1, CEA 1.1, CA 9-9 14.4, CA-125 328.4. CBC: WBC count 7.2, hemoglobin 11.1 gm/dl, hematocrit 33.2%, platelet count 502, absolute neutrophil count 5.3. Coags dated 08/09/2016: PT 15, INR 1.3, PTT 33. Serology: Negative for hepatitis B and C. IMAGING STUDIES CT scan of the abdomen and pelvis with IV contrast dated 08/09/2016: Biliary stent now present and appears to be appropriately positioned. Decreased intrahepatic biliary distension. No pancreatitis or acute complications demonstrated. Increased ascites, moderate. Also mild to moderate body wall edema and anasarca. Mild enteritis/colitis versus reactive wall thickening. No obstruction is demonstrated. Pathology: Ascitic fluid cytology dated 08/11/2016 - Peritoneal fluid - Features consistent with non-small cell carcinoma. Comment - Scattered large atypical cells are present in a background of mesothelial cells and inflammatory cells. These possess substantially enlarged and irregular nuclei and nucleoli. Some multinucleated forms are noted. These findings are suspicious for non-small cell neoplasm. The minimal involvement of the cell block limits the evaluation. ASSESSMENT Ms. Guo is a 56-year-old female who has had a several week history of abdominal distension and jaundice. The jaundice was secondary to posthepatic biliary obstruction secondary to high grade stricture at the level of the confluence of the biliary duct and the pancreatic duct. She underwent ERCP with biliary stent placement and, since then, the obstruction and hyperbilirubinemia have resolved. She was also noted to have ascites which was unexplained. Paracentesis was performed and cytology revealed findings consistent with atypical cells most consistent with non-small cell carcinoma. Specific immunohistochemical staining studies could not be performed given the limited numbers of cells. The patient has been recommended admission to the hospital for further workup and management. RECOMMENDATIONS Suspected malignant ascites: I did review the cytology report thoroughly. It appears the cell blocks have very few cells that were suitable for evaluation. The few grossly abnormal cells which were present were consistent with Non small cell carcinoma, although the Comments did not strongly support this diagnosis. It becomes apparent to me that this individual requires additional tissue to confirm a suspected diagnosis of malignancy. I did review her imaging scans thoroughly and was not able to identify any obvious masses either within the abdomen or within the pelvis. Her CA-125 level is elevated, however, this could be nonspecific and related to some form of inflammation such as peritonitis. An underlying malignancy remains near the top of the differential diagnosis list. I will recommend ultrasound of the pelvis to further evaluate her ovaries and reproductive organs to rule out any subtle findings that were missed perhaps not apparent the CT imaging. I will also obtain a CT scan of the chest to rule out any intrathoracic abnormalities which may be present. I would suggest requesting cytology on any additional peritoneal fluid which may be aspirated. MD YOGI Yepez/ /5:15 PM /6:44 PM [facility]
[2016-08-14 20:00] VITALS: BP 146/92; PULSE 103; PULSE 96; RESP 18; TEMP 98.8; O2SAT 96
--- NOTE | 2016-08-14 23:55 | RADRPT ---
EXAM DATE/TIME: 08/14/2016 22:18 [facility] COMPARISON: CT ABDOMEN & PELVIS W CONTRAST, August 09, 2016, 17:46. INDICATIONS : Pelvic pain. MEDICAL HISTORY : Abdominal pain. Bile duct stricture. Malignant neoplasm. SURGICAL HISTORY : ERCP. MRCP. Biliary stent placement. ENCOUNTER: Subsequent ACUITY: 1 day PAIN SCORE: 6/10 LOCATION: Bilateral pelvis MEASUREMENTS: UTERUS: 6.4 x 4.1 x 2.7 cm ENDOMETRIAL STRIPE: 2 mm RIGHT OVARY: Non visualized LEFT OVARY: Non visualized FINDINGS: UTERUS: The myometrium has homogeneous echotexture without mass.Several small nabothian cysts. RIGHT OVARY: The ovary is not visualized. No adnexal mass is seen. LEFT OVARY: The ovary is not visualized. No adnexal mass or fluid collection is seen. MISCELLANEOUS: Moderate amount of ascites seen within the pelvis. CONCLUSION: 1. Moderate amount of ascites within the pelvis. 2. Lack of visualization of both ovaries. 3. No discrete mass observed. Bert Nunes Jr., MD on August 14, 2016 at 23:51 Board Certified Radiologist. This report was verified electronically.
[2016-08-15] VITALS (8 sets, daily range): BP systolic 138–154; BP diastolic 82–90; PULSE 86–110; RESP 17–20; TEMP 97.3–98.9; O2SAT 94–95
[2016-08-15] MEDS: HYDROmorphone HCL PF 1 MG/ML VIAL IV PUSH PRN ×2 (06:46→12:14)
[2016-08-15] MEDS ORDERED: IOHEXOL 350 MG/ML 10 ML VIAL (for RAD DIAG) IV ONE (08:01)
--- NOTE | 2016-08-15 08:16 | RADRPT ---
EXAM DATE/TIME: 08/15/2016 07:53 [facility] COMPARISON: No previous studies available for comparison. INDICATIONS : Evaluate for neoplasm. IV CONTRAST: 50 cc Omnipaque 350 (iohexol) IV RADIATION DOSE: 6.13 CTDIvol (mGy) MEDICAL HISTORY : Cardiovascular disease. SURGICAL HISTORY : None. ENCOUNTER: Initial ACUITY: 1 day PAIN SCALE: 0/10 LOCATION: Bilateral chest TECHNIQUE: Volumetric scanning of the chest was performed. Using automated exposure control and adjustment of t he mA and/or kV according to patient size, radiation dose was kept as low as reasonably achievable to obtain optimal diagnostic quality images. FINDINGS: LUNGS: There is mild subpleural atelectasis seen at the posterior lungs bilaterally likely secondary to the pleural effusions. PLEURA: There are mild bilateral pleural effusions being greater on the right. MEDIASTINUM: Small normal sized lymph nodes are seen in the mediastinum. Enlarged adenopathy is not clearly seen. AXILLAE: Within normal limits. No lymphadenopathy. SKELETAL: Within normal limits for patient age. MISCELLANEOUS: There is ascites seen in the upper abdomen. The biliary stent is present. CONCLUSION: Bilateral mild pleural effusions being greater on the right. Fadi Cordova MD on August 15, 2016 at 8:09 Board Certified Radiologist. This report was verified electronically.
[2016-08-15] MEDS: SODIUM CHLORIDE 0.9% FLUSH 10 ML FLUSH IV FLUSH SCH ×2 (09:43→23:36)
[2016-08-15] MEDS: FUROSEMIDE 20 MG TAB PO SCH ×2 (09:43→17:19)
[2016-08-15] MEDS: SPIRONOLACTONE 25 MG TAB PO SCH ×2 (09:43→17:19)
[2016-08-15] MEDS: PANTOPRAZOLE SOD 40 MG DELAYED RELEASE TAB PO SCH (09:43)
--- NOTE | 2016-08-15 10:21 | PD.ONC.PN ---
Subjective Subjective Remarks Afebrile overnight. Pt resting in bed with visitors present. NOÉUS was used to discuss her symptoms and plan. She states the diarrhea is improved today. The abdominal bloating is worsening, however the pain is under control. She denies SOB. Objective Data Date Time Temp Pulse Resp B/P Pulse Ox O2 Delivery O2 Flow Rate FiO2 08/15/16 04:00 97.9 90 18 152/90 95 08/15/16 00:00 97.3 102 18 138/82 95 08/14/16 20:00 98.8 103 18 146/92 96 08/14/16 20:00 96 08/14/16 16:00 97.1 104 18 142/82 96 08/14/16 13:43 16 08/14/16 12:00 96.3 87 18 137/75 96 08/15/16 08/15/16 08/15/16 07:00 15:00 23:00 Intake Total 240 ml Balance 240 ml Result Diagram: 08/11/16 0717 08/14/16 0600 Imaging Studies Last 48 hours Impressions Pelvis Ultrasound 08/14/16 0000 Signed Impressions: Service Date/Time: Sunday, August 14, 2016 22:18 - CONCLUSION: 1. Moderate amount of ascites within the pelvis. 2. Lack of visualization of both ovaries. 3. No discrete mass observed. Bert Nunes Jr., MD Chest CT 08/14/16 0000 Signed Impressions: Service Date/Time: Monday, August 15, 2016 07:53 - CONCLUSION: Bilateral mild pleural effusions being greater on the right. Fadi Cordova MD Administered Medications Medications (Trade) Dose Ordered Sig/Anastacio Route PRN Reason Start Time Stop Time Status Last Admin Dose Admin Sodium Chloride (NS Flush) 2 ml UNSCH PRN IV FLUSH FLUSH AFTER USING IV ACCESS 08/09/16 20:45 08/11/16 03:00 Sodium Chloride (NS Flush) 2 ml BID IV FLUSH 08/09/16 21:00 08/15/16 09:43 Hydromorphone HCl 0.2 mg 0.2 mg Q4H PRN IV PUSH pain>5 08/09/16 23:45 08/15/16 06:46 Ciprofloxacin/ Dextrose 200 ml @ 200 mls/hr Q12H IV 08/10/16 05:00 Hold 08/14/16 04:38 Metronidazole (Flagyl 500 Mg Inj) 100 ml @ 100 mls/hr Q6H IV 08/10/16 06:00 Hold 08/14/16 11:32 Pantoprazole Sodium (Protonix) 40 mg DAILY PO 08/10/16 09:00 08/15/16 09:43 Furosemide (Lasix) 20 mg BID@09,18 PO 08/13/16 15:45 08/15/16 09:43 Spironolactone (Aldactone) 25 mg BID@,18 PO 08/14/16 09:00 08/15/16 09:43 Objective Remarks GENERAL: Older female, lying in bed in no distress with visitors present. SKIN: Warm and dry. No oozing. HEAD: Normocephalic. EYES: No injection or drainage. NECK: Supple, trachea midline. CARDIOVASCULAR: Regular rate and rhythm. 4/6 murmur noted, heard loudest at the L sternal border. RESPIRATORY: Breath sounds equal bilaterally. Diminished to the bases. GASTROINTESTINAL: Distended. Mildly tender to deep palpation. EXTREMITIES: Generalized edema to BLE. NEUROLOGICAL: Awake and alert. Follows commands. Normal speech. Assessment/Plan Problem List: (1) non-small cell neoplasm in ascitic cytology Status: Acute Plan: -- Paracentesis done on 08/11; 5,000 ml's green cloudy fluid was drained. -- Cytology showed consistency with non-small cell neoplasm. -- Further imaging unable to identify source of malignant cells. -- CA-125 elevated Assessment 56 y/o female who presents to the ER with c/o abdominal pain and distension. She recently had a biliary stent placed with ERCP. Plan 1. No identified primary from imaging to be causing malignant pleural fluid 2. Plan to repeat cytology studies for future paracentesis Janee Amezcua Aug 15, 2016 10:21
--- NOTE | 2016-08-15 12:04 | HHI.GIFU ---
Subjective Remarks Pt had several BMs yesterday and overnight but that seems to be improving. Pt feels that her abdominal distension is increasing again. Pain is controlled Afebrile. Information translated from family at bedside (Solange Burks) Objective Vitals I&O Vital Signs Date Time Temp Pulse Resp B/P Pulse Ox O2 Delivery O2 Flow Rate FiO2 08/15/16 07:50 97.6 86 20 142/89 94 08/15/16 04:00 97.9 90 18 152/90 95 08/15/16 00:00 97.3 102 18 138/82 95 08/14/16 20:00 98.8 103 18 146/92 96 08/14/16 20:00 96 08/14/16 16:00 97.1 104 18 142/82 96 08/14/16 13:43 16 08/14/16 12:00 96.3 87 18 137/75 96 I/O 08/14/16 08/14/16 08/14/16 08/15/16 08/15/16 08/15/16 07:00 15:00 23:00 07:00 15:00 23:00 Intake Total 480 ml 480 ml 240 ml Balance 480 ml 480 ml 240 ml Intake Oral 480 ml 480 ml 240 ml # Voids 4 3 2 # Bowel Movements 3 2 Laboratory Date/Time Procedure Status Source Growth 08/11/16 09:20 Gram Stain - Final Complete Fluid Peritoneal Fluid 08/11/16 09:20 Body Fluid Culture - Final Complete Fluid Peritoneal Fluid NO GROWTH IN 72 HRS.--AEROBICALLY OR ... Imaging Last Impressions Pelvis Ultrasound 08/14/16 0000 Signed Impressions: Service Date/Time: Sunday, August 14, 2016 22:18 - CONCLUSION: 1. Moderate amount of ascites within the pelvis. 2. Lack of visualization of both ovaries. 3. No discrete mass observed. Bert Nunes Jr., MD Chest CT 08/14/16 0000 Signed Impressions: Service Date/Time: Monday, August 15, 2016 07:53 - CONCLUSION: Bilateral mild pleural effusions being greater on the right. Fadi Cordova MD Cyst Biopsy Asp-Paracentesis US 08/11/16 0000 Signed Impressions: Service Date/Time: Thursday, August 11, 2016 08:34 - CONCLUSION: Uncomplicated ultrasound guided paracentesis. Fluid was sent for ordered studies. Malignancy is suspected. Trell Souza MD FACR Hepatobiliary Scan Nuclear Medicine 08/09/16 0000 Signed Impressions: Service Date/Time: Tuesday, August 09, 2016 20:50 - CONCLUSION: Nonvisualization of the gallbladder however the patient does have a stent in place. I reviewed the CT scan from the same day which failed to demonstrate any obvious gallbladder wall thickening. Delayed images of the gallbladder will be performed. Matt Tovar MD ADDENDUM: COMPARISON: BILIARY SCAN (HIDA), July 30, 2016, 13:41. A delayed image in anterior and right lateral projection was performed at 16 hours. There is no activity seen within the lumen of gallbladder. Since the patient has an indwelling biliary stent, absence of gallbladder visualization is nonpredictive with respect to cystic duct obstruction. Bert Brandon MD Abdomen/Pelvis CT 08/09/16 0000 Signed Impressions: Service Date/Time: Tuesday, August 09, 2016 17:46 - CONCLUSION: 1. Silastic biliary stent now present and appears appropriately positioned. Decreased intrahepatic biliary distention, now mild. No pancreatitis or other acute complication demonstrated. 2. Increased ascites, moderate. Also mild to moderate body wall edema/anasarca developing. 3. Mild enteritis/colitis possible versus reactive wall thickening from the ascites. In any event, no obstruction demonstrated. Fadi Yin MD Physical Exam HEENT: Normocephalic; atraumatic; no jaundice. CHEST: CTA. CARDIAC: RRR ABDOMEN: +Bs, soft, distended, mild RUQ tenderness; Ascites EXTREMITIES: Mild BLE, R>L edema. SKIN: Normal; no rash; no jaundice. 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 (Solange Burks) Assessment and Plan Plan ASSESSMENT: - Abdominal pain, Nausea, Decreased appetite, Early Satiety. Pt was recently hospitalized for high grade CBD stricture and had ERCP with brushings and stent placement on 07/31/16 and was discharged on 08/03. She reports that her pain did improve at discharge, but never completely went away and it worsened with fevers/chills about 3 days ago. She is not able to describe this, but it does seem to be more diffuse. Abdomen/Pelvis CT (08/09/16) ----> 1. Silastic biliary stent now present and appears appropriately positioned. Decreased intrahepatic biliary distention, now mild. No pancreatitis or other acute complication demonstrated. 2. Increased ascites, moderate. Also mild to moderate body wall edema/anasarca developing. 3. Mild enteritis/colitis possible versus reactive wall thickening from the ascites. In any event, no obstruction demonstrated. HIDA (08/09/16)----> Nonvisualization of the gallbladder however the patient does have a stent in place. I reviewed the CT scan from the same day which failed to demonstrate any obvious gallbladder wall thickening. Delayed images of the gallbladder will be performed. 13:41: A delayed image in anterior and right lateral projection was performed at 16 hours. There is no activity seen within the lumen of gallbladder. Since the patient has an indwelling biliary stent, absence of gallbladder visualization is non- predictive with respect to cystic duct obstruction. Of note, her LFTs have been trending down since her stent placement. GS following, does not feel she is a candidate to have cholecystectomy. Pain has improved since paracentesis on 08/11 with removal of 5000cc of ascetic fluid. Cipro/Flagyl. - Malignant ascites. Pt reports fevers/chills x 3 days. Cyst Biopsy Asp- Paracentesis US (08/11/16)----> Uncomplicated ultrasound guided paracentesis with 5000cc of fluid removed. 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 Pt developing more abdominal distention/ ascites. Was started on Lasix 20mg po BID and Spironolactone 25mg po BID AFP 2.1, CEA 1.1, Ca19-9 14.4, Ca 125 338.4. Further imaging unable to identify source of malignant cells. Oncology is following. - Leukocytosis. BCx no growth 5 days. Flagyl/Cipro. Peritoneal fluid no growth 48h. - High grade CBD stricture. S/P ERCP with brushings/stent placement (07/31/16)---- > intra hepatic duct dilatation, s/p brushings, s/p stent placement. Pathology revealed rare atypical cells present in the background of numerous glandular epithelial cells, malignancy cannot be excluded. LFTs have been trending down since stent placement. AFP during last hospitalization was 2.4. Ca19-9 10.7 , CEA 1.2, Ca 125 338.4. - ? Underlying liver disease, ?Cirrhosis. Hepatitis panel negative. ARAMIS negative. AMA < 20.0, ASMA negative, AFP 2.1, Iron saturation 27.9, Ferritin 41, Ceruloplasmin 36, Alpha 1 Antitrypsin 191. PLAN: - 2 gram sodium diet - Cont. Spironolactone and Lasix - Daily weights - Strict I&Os - Cont. PPI - Cont. Flagyl/Cipro - Stool for C. diff is ordered - Monitor labs - Palliative care consulted - GS following - Supportive care - Further recommendations as the case develops - Pt seen and examined by Dr. Whitehead and myself and this note is written on her behalf (Solange Burks) Physician Comments seen, examined agree with above may need repeat paracentesis based on plan of action -will need eus vs ercp with metallic stent placement ( Shanell Whitehead MD) Solange Burks Aug 15, 2016 12:04 Shanell Whitehead MD Aug 15, 2016 15:54
--- NOTE | 2016-08-15 12:40 | HHI.PR ---
Subjective Remarks Follow-up for abdominal pain and ascites Patient stated that she has abdominal pain after eating her breakfast this morning. Deny nausea vomiting. Multiple family members at the bedside. 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 Patient daughter declined translated throughout the interview. Objective Vitals Vital Signs Date Time Temp Pulse Resp B/P Pulse Ox O2 Delivery O2 Flow Rate FiO2 08/15/16 07:50 97.6 86 20 142/89 94 08/15/16 04:00 97.9 90 18 152/90 95 08/15/16 00:00 97.3 102 18 138/82 95 08/14/16 20:00 98.8 103 18 146/92 96 08/14/16 20:00 96 08/14/16 16:00 97.1 104 18 142/82 96 08/14/16 13:43 16 I/O 08/14/16 08/14/16 08/14/16 08/15/16 08/15/16 08/15/16 07:00 15:00 23:00 07:00 15:00 23:00 Intake Total 480 ml 480 ml 240 ml Balance 480 ml 480 ml 240 ml Intake Oral 480 ml 480 ml 240 ml # Voids 4 3 2 # Bowel Movements 3 2 Result Diagram: 08/11/16 0717 08/14/16 0600 Objective Remarks GENERAL: in NAD NECK: Supple, trachea midline. No JVD or lymphadenopathy. CARDIOVASCULAR: Regular rate and rhythm without murmurs, gallops, or rubs. RESPIRATORY: Breath sounds equal bilaterally. No accessory muscle use. GASTROINTESTINAL: Abdomen soft. Positive tenderness palpation in the right upper quadrant epigastric area. Negative peritoneal signs. Normoactive bowel sounds. MUSCULOSKELETAL: No cyanosis, or edema. BACK: Nontender without obvious deformity. No CVA tenderness. Medications and IVs Current Medications Morphine Sulfate (Morphine Inj) 4 mg ONCE ONCE IV PUSH Last administered on 16:39; Start 08/09/16 at 16:15; Stop 08/09/16 at 16:16; Status DC Ondansetron HCl 4 mg 4 mg ONCE ONCE IVP Last administered on 08/09/16 16:38; Start 08/09/16 at 16:15; Stop 08/09/16 at 16:16; Status DC Sodium Chloride (NS 1000 ml Inj) 1,000 ml @ 1,000 mls/hr Q1H IV Last administered on 08/09/16 16:39; Start 08/09/16 at 16:03; Stop 08/09/16 at 17:02 ; Status DC Sodium Chloride (NS Flush) 2 ml UNSCH PRN IV FLUSH FLUSH AFTER USING IV ACCESS Last administered on 08/09/16 20:01; Start 08/09/16 at 16:15; Stop 08/10/16 at 11:08; Status DC Ketorolac Tromethamine (Toradol Inj) 30 mg ONCE ONCE IVP Last administered on 08/09/16 16:38; Start 08/09/16 at 16:15; Stop 08/09/16 at 16:16; Status DC Iohexol 85 ml 85 ml STK-MED ONCE IV Last administered on 08/09/16 17:50; Start 08/09/16 at 17:50; Stop 08/09/16 at 17:51; Status DC Vancomycin HCl 1000 mg/Sodium Chloride 250 ml @ 250 mls/hr ONCE STAT IV Last administered on 08/09/16 20:01; Start 08/09/16 at 18:42; Stop 08/09/16 at 19:41 ; Status DC Aztreonam 2000 mg/ Sodium Chloride 100 ml @ 200 mls/hr ONCE STAT IV Last administered on 08/09/16 20:51; Start 08/09/16 at 18:42; Stop 08/09/16 at 19:11 ; Status DC Metronidazole (Flagyl 500 Mg Inj) 100 ml @ 100 mls/hr ONCE STAT IV Last administered on 08/09/16 20:01; Start 08/09/16 at 18:42; Stop 08/09/16 at 19:41 ; Status DC Sodium Chloride (NS Flush) 2 ml UNSCH PRN IV FLUSH FLUSH AFTER USING IV ACCESS Last administered on 08/11/16 03:00; Start 08/09/16 at 20:45 Sodium Chloride (NS Flush) 2 ml BID IV FLUSH Last administered on 08/15/16 09: 43; Start 08/09/16 at 21:00 Naloxone HCl (Narcan Inj) 0.4 mg UNSCH PRN IV SEE LABEL COMMENTS; Start at 20:45 Hydromorphone HCl 0.2 mg 0.2 mg Q4H PRN IV PUSH pain>5 Last administered on 12:14; Start 08/09/16 at 23:45 Ciprofloxacin/ Dextrose 200 ml @ 200 mls/hr Q12H IV Last administered on 04:38; Start 08/10/16 at 05:00; Status Hold Metronidazole (Flagyl 500 Mg Inj) 100 ml @ 100 mls/hr Q6H IV Last administered on 08/14/16 11:32; Start 08/10/16 at 06:00; Status Hold Pantoprazole Sodium (Protonix) 40 mg DAILY PO Last administered on 08/15/16 09 :43; Start 08/10/16 at 09:00 Morphine Sulfate 2 mg 2 mg Q3H PRN IV PUSH pain >5 Last administered on 18:39; Start 08/10/16 at 08:00; Stop 08/12/16 at 07:21; Status DC Sodium Chloride (NS 1000 ml Inj) 1,000 ml @ 75 mls/hr [id number] IV Last administered on 08/12/16 05:08; Start 08/10/16 at 11:17; Stop 08/12/16 at 13:58 ; Status DC Simethicone (Mylicon Chew) 80 mg ONCE ONCE CHEW Last administered on 15:23; Start 08/12/16 at 14:00; Stop 08/12/16 at 14:01; Status DC Simethicone (Mylicon Chew) 80 mg PCHS PRN CHEW BLOATING; Start 08/12/16 at 14: 00 Furosemide (Lasix) 20 mg BID@09,18 PO Last administered on 08/15/16 09:43; Start 08/13/16 at 15:45 Potassium Chloride (KCl) 20 meq ONCE ONCE PO Last administered on 08/13/16 16 :00; Start 08/13/16 at 15:45; Stop 08/13/16 at 15:46; Status DC Spironolactone (Aldactone) 25 mg BID@09,18 PO Last administered on 08/15/16 09 :43; Start 08/14/16 at 09:00 Iohexol (Omnipaque 350 Inj) 50 ml STK-MED ONCE IV Last administered on 4/23/ 17at 08:01; Start 08/15/16 at 08:01; Stop 08/15/16 at 08:02; Status DC A/P Problem List: (1) Abdominal pain ICD Code: R10.9 Status: Acute Assessment and Plan 56-year-old female with history of CBD stricture s/p ERCP with stent placement 1 week ago presents with abdominal pain, nausea/vomiting Symptomatic ascites: Concern for malignancy. No hx of Alcohol use or cirrhosis. Imaging reviewed: CT abd showed Silastic biliary stent now present and appears appropriately positioned; Decreased intrahepatic biliary distention, now mild; Increased ascites, moderate; mild to moderate body wall edema/anasarca developing; Mild enteritis/colitis possible versus reactive wall thickening from the ascites. HIDA 08/10 shows nonvisualization of the gallbladder. -Consulted gastroenterology, Discussed with Dr. Whitehead, recommends awaiting cytology results and patient may need to have EUS with Dr. Samaniego next week. -Surgical oncology, Dr. Wylie, consulted. Not a good surgical candidate for cholecystectomy at this time. Symptoms not c/w cholecystitis at this time. 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 Simethicone prn. -Diuresis with Lasix and Aldactone for ascites -Palliative care oncology following. Pending recommendations. Acute Colitis: seen on CT abdomen as above -On IV Cipro/Flagyl for gastroenterology, will follow up with GI regarding diarrhea, hold antibiotics for now -diet as tolerated per gastroenterology -Recommending eating small portions to avoid simulating pain. Recent High Grade CBD Stricture: s/p ERCP with stent placement 07/31. Pathology revealed rare atypical cells present in the background of numerous glandular epithelial cells, malignancy cannot be excluded. LFTs have been trending down since stent placement. CT abd showed biliary stent appropriately positioned, decreased biliary distention, no pancreatitis. -Gastroenterology on board -Continue to monitor LFTs, stable, follow-up CMP. Leukocytosis with left shift: suspect from dehydration. Afebrile. -Given IVF and leukocytosis resolved. Hyponatremia: likely secondary to dehydration -Na 126 upon arrival -s/p IVF -improving, Na 132 -continue to monitor Hypokalemia: Secondary to poor by mouth intake. Potassium 3.3. Replaced orally. Repeat 3.6. Magnesium within normal limits. Diarrhea: Check C. difficile, discussed with RN. Hold antibiotics for now. DVT prophylaxiswith Lovenox Problem Qualifiers (1) Abdominal pain: Qualified Code: R10.11 - Right upper quadrant abdominal pain Maddie Jewell MD Aug 15, 2016 12:40
[2016-08-15 19:17] LABS: HEMATOCRIT 36.2 % (35.0-46.0); MEAN CELL VOLUME 84.9 FL (80.0-100.0); MEAN CORPUSCULAR HGB CONC 34.1 % (32.0-36.0); PLATELET COUNT 628 TH/MM3 (150-450); RED BLOOD COUNT 4.26 MIL/MM3 (4.00-5.30); RED CELL DISTRIBUTION WIDTH 15.1 % (11.6-17.2); REVIEW FLAG FINAL; WHITE BLOOD COUNT 9.6 TH/MM3 (4.0-11.0)
[2016-08-15 19:28] LABS: APTT (PATIENT) 31.7 SEC (24.3-30.1); INTERNATIONAL NORMALIZED RATIO 1.2 RATIO; PROTHROMBIN TIME - PATIENT 13.3 SEC (9.8-11.6)
[2016-08-15 20:36] LABS: C. DIFF EPI 027 PRESUMPTIVE NEGATIVE (NEGATIVE); C. DIFF TOXIN PCR NEGATIVE (NEGATIVE)
[2016-08-16] VITALS (12 sets, daily range): BP systolic 130–160; BP diastolic 75–93; PULSE 78–105; RESP 14–20; TEMP 96.3–98.4; O2SAT 93–96
[2016-08-16] MEDS ORDERED: cloNIDine HCL 0.1 MG TAB PO ONE (04:00)
[2016-08-16 09:26] LABS: HEMATOCRIT 35.2 % (35.0-46.0); MEAN CELL VOLUME 85.4 FL (80.0-100.0); MEAN CORPUSCULAR HEMOGLOBIN 29.3 PG (27.0-34.0); MEAN CORPUSCULAR HGB CONC 34.3 % (32.0-36.0); PLATELET COUNT 610 TH/MM3 (150-450); RED BLOOD COUNT 4.12 MIL/MM3 (4.00-5.30); REVIEW FLAG FINAL; WHITE BLOOD COUNT 8.3 TH/MM3 (4.0-11.0)
[2016-08-16 09:59] LABS: BICARBONATE 29.5 MEQ/L (21.0-32.0); POTASSIUM 3.5 MEQ/L (3.5-5.1)
--- NOTE | 2016-08-16 14:22 | HHI.HCPN ---
Reason for visit a. To assist with evaluation and management of symptoms including: Pain b. To assist medical decision maker(s) with: better understanding of current medical conditions; weighing benefits/burdens of medical treatment options; making medical treatment decisions. . Subjective/Interval History Patient seen in her room. Patient is Armenian speaker, no french polisher needed or required as we both speak fluent Armenian. Patient resting in bed in no acute distress. Endorsing mild dyspnea on exertion, no abdominal pain today. 3 episodes of diarrhea this morning, however, reporting that amount has decreased. Brother Edgard at bedside. Pelvis ultrasound 08/14/16 showing moderate amount of ascites within the pelvis, no discrete mass observed. Chest CT 08/15/16 showing bilateral mild pleural effusions. Laboratory today WBC 8.3, Hgb 12.1, platelet count 610. Sodium 139, potassium 3.5, BUN/creatinine 7/ 0.60. Culture of peritoneal fluid 08/11/16 with no growth in 72 hours. Discussed with patient and her brother their understanding of her current clinical condition. Patient tells me that she is not that clear on what is going on, she does however indicates that the doctors have told her of the likelihood of her having cancer. Oncology is following. Reviewed with patient that additional testing/plan to repeat cytology is still pending for confirmation. Discussed that in the event that non-small cell carcinoma is confirmed, and patient verbalize her willingness to receive systemic treatment if offered. Patient will like to pursue antineoplastic treatment and/or surgical intervention with the goal of palliation of her symptoms and prolongation of survival. Patient tells me that she is very congregational and has strong shayne believes. Reviewed benefits, risks and limitations of CPR, intubation and mechanical ventilation. Patient electing to be a full code at this time. Assisted patient in completing healthcare surrogate paperwork, patient designated her 3 siblings as healthcare surrogate. Patient is single, has 2 children who are currently in [place]. . Family/friend interactions Patient's brother Edgard at bedside. Medical update provided and reviewed current treatment plan. All questions were answered in great detail. . Advance Directives Living Will: Never completed Health Care Surrogate: Copy in medical record Durable Power of Social Media Senior Associate: Never completed Advance Directive Specifics Date completed: 08/16/16. . Health Care Surrogate(s): Patient's brother Renee Hong, alternate Edgard Hong and Shaye Hong. . Documented care wishes: No living will completed. Patient declined completion at this time. . Significant change in goals: Full code. Goal is to pursue aggressive care for palliation of symptoms and prolongation of survival. . Objective Vital Signs Date Time Temp Pulse Resp B/P Pulse Ox O2 Delivery O2 Flow Rate FiO2 08/16/16 12:00 98.2 92 16 135/83 95 08/16/16 11:31 97.6 84 14 130/80 93 08/16/16 11:30 97.9 82 16 133/75 95 08/16/16 10:19 98.4 95 20 137/85 96 08/16/16 08:00 97.0 78 16 139/78 94 08/16/16 05:32 83 133/80 08/16/16 04:00 97.2 91 16 160/93 95 08/16/16 00:00 96.3 99 16 157/87 95 08/15/16 20:01 107 08/15/16 20:00 97.4 110 17 138/84 95 08/15/16 15:50 98.9 99 20 147/89 94 Intake & Output 08/16/16 08/16/16 07:00 19:00 Intake Total 720 ml Balance 720 ml Intake Oral 720 ml # Voids 3 # Bowel Movements 2 Physical Exam CONSTITUTIONAL/GENERAL: This is an adequately nourished patient, in no apparent distress. TUBES/LINES/DRAINS: Peripheral IV SKIN: No jaundice, rashes, or lesions. Ecchymoses on upper extremities. No wounds seen anteriorly. Skin temperature appropriate. Not diaphoretic. HEAD: Atraumatic. Normocephalic. EYES: Pupils equal and round and reactive. Extraocular motions intact. No scleral icterus. No injection or drainage. ENT: Hearing grossly normal. Nose without bleeding or purulent drainage. Throat without visible erythema, exudates, masses, or lesions. NECK: Trachea midline. Supple, nontender. CARDIOVASCULAR: Regular rate and rhythm without murmurs, gallops, or rubs. No JVD. Peripheral pulses symmetric. RESPIRATORY/CHEST: Symmetric, unlabored respirations. Clear to auscultation. Breath sounds equal bilaterally. No wheezes, rales, or rhonchi. GASTROINTESTINAL: Abdomen soft, but moderately distended. No guarding, but mild tenderness in the RUQ. Bowel sounds present. GENITOURINARY: Without palpable bladder distension. MUSCULOSKELETAL: Extremities without clubbing, cyanosis, or edema. NEUROLOGICAL: Awake and alert. Motor and sensory grossly within normal limits. Follows commands. Cognitively sharp. Moves all extremities. PSYCHIATRIC: No obvious anxiety/depression. no apparent hallucinations or other psychotic thought process. . Diagnostic Tests Laboratory Laboratory Tests Test 08/14/16 08/15/16 08/15/16 08/16/16 06:00 17:00 18:50 08:06 Sodium Level 132 MEQ/L 129 MEQ/L (136-145) (136-145) Potassium Level 3.6 MEQ/L 3.5 MEQ/L (3.5-5.1) (3.5-5.1) Chloride Level 96 MEQ/L 90 MEQ/L (98-107) (98-107) Carbon Dioxide Level 27.9 MEQ/L 29.5 MEQ/L (21.0-32.0) (21.0-32.0) Anion Gap 8 MEQ/L (5-15) 10 MEQ/L (5-15) Blood Urea Nitrogen 6 MG/DL (7-18) 7 MG/DL (7-18) Creatinine 0.48 MG/DL 0.60 MG/DL (0.50-1.00) (0.50-1.00) Estimat Glomerular Filtration 133 ML/MIN 103 ML/MIN Rate (>89) (>89) Random Glucose 110 MG/DL 114 MG/DL (74-106) (74-106) Calcium Level 7.8 MG/DL 7.9 MG/DL (8.5-10.1) (8.5-10.1) Magnesium Level 1.9 MG/DL (1.5-2.5) Total Bilirubin 0.7 MG/DL (0.2-1.0) Aspartate Amino Transf 25 U/L (15-37) (AST/SGOT) Alanine Aminotransferase 16 U/L (10-53) (ALT/SGPT) Alkaline Phosphatase 326 U/L (45-117) Total Protein 6.6 GM/DL (6.4-8.2) Albumin 1.8 GM/DL (3.4-5.0) Stool C. difficile Toxin (PCR) NEGATIVE (NEGATIVE) Stl C. difficile Toxin PRESUMPTIVE Epiderm 027 NEGATIVE (NEGATIVE) White Blood Count 9.6 TH/MM3 8.3 TH/MM3 (4.0-11.0) (4.0-11.0) Red Blood Count 4.26 MIL/MM3 4.12 MIL/MM3 (4.00-5.30) (4.00-5.30) Hemoglobin 12.4 GM/DL 12.1 GM/DL (11.6-15.3) (11.6-15.3) Hematocrit 36.2 % 35.2 % (35.0-46.0) (35.0-46.0) Mean Corpuscular Volume 84.9 FL 85.4 FL (80.0-100.0) (80.0-100.0) Mean Corpuscular Hemoglobin 29.0 PG 29.3 PG (27.0-34.0) (27.0-34.0) Mean Corpuscular Hemoglobin 34.1 % 34.3 % Concent (32.0-36.0) (32.0-36.0) Red Cell Distribution Width 15.1 % 15.0 % (11.6-17.2) (11.6-17.2) Platelet Count 628 TH/MM3 610 TH/MM3 (150-450) (150-450) Mean Platelet Volume 7.6 FL 8.2 FL (7.0-11.0) (7.0-11.0) Prothrombin Time 13.3 SEC (9.8-11.6) Prothromb Time International 1.2 RATIO Ratio Activated Partial 31.7 SEC Thromboplast Time (24.3-30.1) Test 08/16/16 10:50 Peritoneal Fluid Total Protein 3.9 GM/DL Peritoneal Fluid Albumin 1.5 G/DL Peritoneal Fluid LDH 233 U/L Peritoneal Fluid Glucose 88 MG/DL Peritoneal Fluid Amylase 39 U/L Result Diagram: 08/16/16 0806 08/16/16 08 Microbiology Microbiology Date/Time Procedure Status Source Growth 08/16/16 10:50 Gram Stain Received Fluid Peritoneal Fluid Pending 08/16/16 10:50 Body Fluid Culture Received Fluid Peritoneal Fluid Pending Procedures Paracentesis 08/11/16 . Assessment and Plan Disease Oriented Problem List: (1) non-small cell neoplasm in ascitic cytology (2) recent biliary obstruction, stent placement (3) abdominal pain (4) hyponatremia (5) cholelithiasis Symptom Scale: (1) pain 0-10 Scale: 0 Pertinent Non-Medical Issues Psychosocial: female who lives with her brother. Originally from [place] , Armenian-speaking. Her 2 children are in [place]. Spiritual: Spirituality is very important to her; she is Anabaptism. Legal: The patient has capacity for decision-making at this time. Designation of healthcare surrogate completed and in file. Ethical issues impacting care: None . Important Contacts HCS -brother Renee Hong Brother Edgard Hong Sister Shaye Hong . Prognosis The patient has had worsening abdominal pain, malignant ascites, and weight loss over the past couple months. She now has non-small cell malignant cells in her ascitic fluid, and it would appear that her prognosis is poor. Oncology following. . Code Status: Full Code Plan * CODE STATUS: FULL CODE * DECISION-MAKING: The patient has capacity for decision-making at this time. Palliative care assisted patient with completion of designation are healthcare surrogate. Patient designated her brother Renee Hong as HCS, alternate - other 2 siblings Edgard Hong and Shaye Hong. * GOALS OF CARE: Goal is to pursue aggressive care for palliation of symptoms and prolongation of survival. Patient understands that there is additional testing/workup pending for confirmation of diagnosis and treatment plan. Oncology following. * SYMPTOMS: == Abdominal pain: much improved since paracentesis. Hydromorphone available as needed. * Palliative care contact information has been provided. * Palliative Care will continue to follow the patient during this hospitalization as the clinical course evolves. . Time Spent Total Floor Time (mins): 36 (Total time to include review of medical records, physical exam, conversation with patient and daughter, and completion of designation of healthcare surrogate documentation.) >50% Counseling/Coord of Care: Yes Attestation To help prompt me to consider important information that might be impacting today's encounter and assessment, information from prior notes written by myself or my colleagues may have been "brought forward" into today's note. My signature on this note, however, is an attestation that I personally performed the exam, history, and/or decision-making noted today, and, unless otherwise indicated, the interactions with patient, family, and staff as well as the review of records all occurred today. I also attest that the listed assessment and stated plan reflect my best clinical judgment today based on the combination of historical information, prior notes, and today's exam/ interactions. When time spent is documented, it refers only to time spent today by the signer, or if indicated, combined time spent today by collaborating physician/nurse practitioner. Jamilah Dhillon Aug 16, 2016 14:22
[2016-08-16 14:37] LABS: PERITONEAL EOS 3 %; PERITONEAL HISTIOCYTES 1 %; PERITONEAL LYMPHS 93 %; PERITONEAL MONOS 1 %; PERITONEAL POLYS(SEGS) 1 %; PERITONEAL WBC 109 /MM3 (0-10)
--- NOTE | 2016-08-16 14:45 | PD.ONC.PN ---
Subjective Subjective Remarks Afebrile overnight. Translation service used to speak with patient and brother. Patient back from paracentesis this AM. She denies pain. Objective Data Date Time Temp Pulse Resp B/P Pulse Ox O2 Delivery O2 Flow Rate FiO2 08/16/16 12:00 98.2 92 16 135/83 95 08/16/16 11:31 97.6 84 14 130/80 93 08/16/16 11:30 97.9 82 16 133/75 95 08/16/16 10:19 98.4 95 20 137/85 96 08/16/16 08:00 97.0 78 16 139/78 94 08/16/16 05:32 83 133/80 08/16/16 04:00 97.2 91 16 160/93 95 08/16/16 00:00 96.3 99 16 157/87 95 08/15/16 20:01 107 08/15/16 20:00 97.4 110 17 138/84 95 08/15/16 15:50 98.9 99 20 147/89 94 08/16/16 08/16/16 08/16/16 07:00 15:00 23:00 Intake Total 240 ml Balance 240 ml Result Diagram: 08/16/16 0806 08/16/16 0806 Laboratory Results Laboratory Tests Test 08/15/16 08/15/16 08/16/16 08/16/16 17:00 18:50 08:06 10:50 Stool C. difficile Toxin (PCR) NEGATIVE Stl C. difficile Toxin PRESUMPTIVE Epiderm 027 NEGATIVE White Blood Count 9.6 TH/MM3 8.3 TH/MM3 Red Blood Count 4.26 MIL/MM3 4.12 MIL/MM3 Hemoglobin 12.4 GM/DL 12.1 GM/DL Hematocrit 36.2 % 35.2 % Mean Corpuscular Volume 84.9 FL 85.4 FL Mean Corpuscular Hemoglobin 29.0 PG 29.3 PG Mean Corpuscular Hemoglobin 34.1 % 34.3 % Concent Red Cell Distribution Width 15.1 % 15.0 % Platelet Count 628 TH/MM3 610 TH/MM3 Mean Platelet Volume 7.6 FL 8.2 FL Prothrombin Time 13.3 SEC Prothromb Time International 1.2 RATIO Ratio Activated Partial 31.7 SEC Thromboplast Time Sodium Level 129 MEQ/L Potassium Level 3.5 MEQ/L Chloride Level 90 MEQ/L Carbon Dioxide Level 29.5 MEQ/L Anion Gap 10 MEQ/L Blood Urea Nitrogen 7 MG/DL Creatinine 0.60 MG/DL Estimat Glomerular Filtration 103 ML/MIN Rate Random Glucose 114 MG/DL Calcium Level 7.9 MG/DL Peritoneal Fluid WBC 109 /MM3 Peritoneal Fluid RBC 2901 /MM3 Peritoneal Fluid Neutrophils 1 % Peritoneal Fluid Lymphocytes 93 % Peritoneal Fluid Monocytes 1 % Peritoneal Fluid Eosinophils 3 % Peritoneal Fluid Histiocytes 1 % Peritoneal Fluid Other Cells 1 % Peritoneal Fluid Comment Peritoneal Fluid Total Protein 3.9 GM/DL Peritoneal Fluid Albumin 1.5 G/DL Peritoneal Fluid LDH 233 U/L Peritoneal Fluid Glucose 88 MG/DL Peritoneal Fluid Amylase 39 U/L Culture Results Microbiology Date/Time Procedure Status Source Growth 08/16/16 10:50 Gram Stain Received Fluid Peritoneal Fluid Pending 08/16/16 10:50 Body Fluid Culture Received Fluid Peritoneal Fluid Pending Imaging Studies Last Impressions Pelvis Ultrasound 08/14/16 0000 Signed Impressions: Service Date/Time: Sunday, August 14, 2016 22:18 - CONCLUSION: 1. Moderate amount of ascites within the pelvis. 2. Lack of visualization of both ovaries. 3. No discrete mass observed. Bert Nunes Jr., MD Chest CT 08/14/16 0000 Signed Impressions: Service Date/Time: Monday, August 15, 2016 07:53 - CONCLUSION: Bilateral mild pleural effusions being greater on the right. Fadi Cordova MD Cyst Biopsy Asp-Paracentesis US 08/11/16 0000 Signed Impressions: Service Date/Time: Thursday, August 11, 2016 08:34 - CONCLUSION: Uncomplicated ultrasound guided paracentesis. Fluid was sent for ordered studies. Malignancy is suspected. Trell Souza MD FACR Hepatobiliary Scan Nuclear Medicine 08/09/16 0000 Signed Impressions: Service Date/Time: Tuesday, August 09, 2016 20:50 - CONCLUSION: Nonvisualization of the gallbladder however the patient does have a stent in place. I reviewed the CT scan from the same day which failed to demonstrate any obvious gallbladder wall thickening. Delayed images of the gallbladder will be performed. Matt Tovar MD ADDENDUM: COMPARISON: BILIARY SCAN ([facility]), July 30, 2016, 13:41. A delayed image in anterior and right lateral projection was performed at 16 hours. There is no activity seen within the lumen of gallbladder. Since the patient has an indwelling biliary stent, absence of gallbladder visualization is nonpredictive with respect to cystic duct obstruction. Bert Brandon MD Abdomen/Pelvis CT 08/09/16 0000 Signed Impressions: Service Date/Time: Tuesday, August 09, 2016 17:46 - CONCLUSION: 1. Silastic biliary stent now present and appears appropriately positioned. Decreased intrahepatic biliary distention, now mild. No pancreatitis or other acute complication demonstrated. 2. Increased ascites, moderate. Also mild to moderate body wall edema/anasarca developing. 3. Mild enteritis/colitis possible versus reactive wall thickening from the ascites. In any event, no obstruction demonstrated. Fadi Yin MD Administered Medications Medications (Trade) Dose Ordered Sig/Anastacio Route PRN Reason Start Time Stop Time Status Last Admin Dose Admin Sodium Chloride (NS Flush) 2 ml UNSCH PRN IV FLUSH FLUSH AFTER USING IV ACCESS 08/09/16 20:45 08/11/16 03:00 Sodium Chloride (NS Flush) 2 ml BID IV FLUSH 08/09/16 21:00 08/15/16 23:36 Hydromorphone HCl 0.2 mg 0.2 mg Q4H PRN IV PUSH pain>5 08/09/16 23:45 08/15/16 12:14 Ciprofloxacin/ Dextrose 200 ml @ 200 mls/hr Q12H IV 08/10/16 05:00 Hold 08/14/16 04:38 Metronidazole (Flagyl 500 Mg Inj) 100 ml @ 100 mls/hr Q6H IV 08/10/16 06:00 Hold 08/14/16 11:32 Pantoprazole Sodium (Protonix) 40 mg DAILY PO 08/10/16 09:00 08/15/16 09:43 Furosemide (Lasix) 20 mg BID@,18 PO 08/13/16 15:45 08/15/16 17:19 Spironolactone (Aldactone) 25 mg BID@,18 PO 08/14/16 09:00 08/15/16 17:19 Objective Remarks GENERAL: Middle aged female, lying in bed in nad. SKIN: Warm and dry. HEAD: Normocephalic. EYES: No injection or drainage. NECK: Supple, trachea midline. CARDIOVASCULAR: Regular rate and rhythm RESPIRATORY: Breath sounds equal bilaterally. No accessory muscle use. GASTROINTESTINAL: Abdomen soft, mildly distended. EXTREMITIES: No cyanosis, or edema. MUSCULOSKELETAL: Adequate muscle tone. NEUROLOGICAL: awake and alert, moving extremities. 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 --Cytology showed consistency with non-small cell neoplasm. --Further imaging unable to identify source of malignant cells. --CA-125 elevated--> could be non-specific and related to some form of inflammation such as peritonitis. --Pelvic ultrasound showed--moderate amount of ascites within the pelvis,. Lack of visualization of both ovaries and No discrete mass observed. --CT chest showed bilateral mild pleural effusions left being greater on the right. Assessment 56 y/o female admitted with abdominal pain and distension. s/p biliary stent placement with ERCP. Oncology consulted for malignant cells found in cytology of ascitic fluid. Plan 1. await repeat cytology from paracentesis today 2. supportive care Adina Berger Aug 16, 2016 14:45
--- NOTE | 2016-08-16 15:14 | RADRPT ---
EXAM DATE/TIME: 08/16/2016 09:24 [facility] COMPARISON: No previous studies available for comparison. INDICATIONS : Ascites. MEDICAL HISTORY : Cardiac disorder. Abdominal pain. SURGICAL HISTORY : Biliary stent placements. MRCP. ERCP. ENCOUNTER: Subsequent ACUITY: 1 week PAIN SCORE: 0/10 LOCATION: Right lower quadrant FLUID: Total volume of 30 cc of clear, yellow fluid was removed. Fluid was sent to lab for ordered studies. Post procedure scanning reveals no hematoma or other complication. TECHNIQUE: 1. Ultrasound guidance for abdominal paracentesis. 2. Paracentesis. The risks, benefits, and alternatives to ultrasound guided paracentesis were explained to the patient in detail including the risk of bleeding and infection. Written and verbal informed consent was obt ained. With the patient on the ultrasound table, ultrasound imaging was used to select the most appropriate approach for paracentesis. Overlying skin was prepped and draped in the usual sterile fashion and wi th a local anesthetic, a dermatotomy was made with an 11 blade scalpel. A 6 [place] [id number] ca theter was introduced into the peritoneal cavity and fluid was collected. The patient tolerated the procedure well and left the ultrasound suite in stable condition. CONCLUSION: Uncomplicated ultrasound guided paracentesis. Grady Wilson MD on August 16, 2016 at 15:12 Board Certified Radiologist. This report was verified electronically.
--- NOTE | 2016-08-16 15:31 | HHI.PR ---
Subjective Remarks f/u for ascites and CBD stricture Online program with live neuropsychology service director use. patient denied any abdominal pain. Objective Vitals Vital Signs Date Time Temp Pulse Resp B/P Pulse Ox O2 Delivery O2 Flow Rate FiO2 08/16/16 12:00 98.2 92 16 135/83 95 08/16/16 11:31 97.6 84 14 130/80 93 08/16/16 11:30 97.9 82 16 133/75 95 08/16/16 10:19 98.4 95 20 137/85 96 08/16/16 08:40 82 08/16/16 08:00 97.0 78 16 139/78 94 08/16/16 05:32 83 133/80 08/16/16 04:00 97.2 91 16 160/93 95 08/16/16 00:00 96.3 99 16 157/87 95 08/15/16 20:01 107 08/15/16 20:00 97.4 110 17 138/84 95 08/15/16 15:50 98.9 99 20 147/89 94 I/O 08/15/16 08/15/16 08/15/16 08/16/16 08/16/16 08/16/16 07:00 15:00 23:00 07:00 15:00 23:00 Intake Total 240 ml 240 ml 480 ml 240 ml Balance 240 ml 240 ml 480 ml 240 ml Intake Oral 240 ml 240 ml 480 ml 240 ml # Voids 2 5 2 1 # Bowel Movements 0 2 Result Diagram: 08/16/16 0806 08/16/16 0806 Objective Remarks GENERAL: in NAD NECK: Supple, trachea midline. No JVD or lymphadenopathy. CARDIOVASCULAR: Regular rate and rhythm without murmurs, gallops, or rubs. RESPIRATORY: Breath sounds equal bilaterally. No accessory muscle use. GASTROINTESTINAL: Abdomen soft. Positive tenderness palpation in the right upper quadrant epigastric area. Negative peritoneal signs. Normoactive bowel sounds. MUSCULOSKELETAL: No cyanosis, or edema. BACK: Nontender without obvious deformity. No CVA tenderness. Medications and IVs Current Medications Morphine Sulfate (Morphine Inj) 4 mg ONCE ONCE IV PUSH Last administered on t 16:39; Start 08/09/16 at 16:15; Stop 08/09/16 at 16:16; Status DC Ondansetron HCl 4 mg 4 mg ONCE ONCE IVP Last administered on 08/09/16 16:38; Start 08/09/16 at 16:15; Stop 08/09/16 at 16:16; Status DC Sodium Chloride (NS 1000 ml Inj) 1,000 ml @ 1,000 mls/hr Q1H IV Last administered on 08/09/16 16:39; Start 08/09/16 at 16:03; Stop 08/09/16 at 17:02 ; Status DC Sodium Chloride (NS Flush) 2 ml UNSCH PRN IV FLUSH FLUSH AFTER USING IV ACCESS Last administered on 08/09/16 20:01; Start 08/09/16 at 16:15; Stop 08/10/16 at 11:08; Status DC Ketorolac Tromethamine (Toradol Inj) 30 mg ONCE ONCE IVP Last administered on 08/09/16 16:38; Start 08/09/16 at 16:15; Stop 08/09/16 at 16:16; Status DC Iohexol 85 ml 85 ml STK-MED ONCE IV Last administered on 08/09/16 17:50; Start 08/09/16 at 17:50; Stop 08/09/16 at 17:51; Status DC Vancomycin HCl 1000 mg/Sodium Chloride 250 ml @ 250 mls/hr ONCE STAT IV Last administered on 08/09/16 20:01; Start 08/09/16 at 18:42; Stop 08/09/16 at 19:41 ; Status DC Aztreonam 2000 mg/ Sodium Chloride 100 ml @ 200 mls/hr ONCE STAT IV Last administered on 08/09/16 20:51; Start 08/09/16 at 18:42; Stop 08/09/16 at 19:11 ; Status DC Metronidazole (Flagyl 500 Mg Inj) 100 ml @ 100 mls/hr ONCE STAT IV Last administered on 08/09/16 20:01; Start 08/09/16 at 18:42; Stop 08/09/16 at 19:41 ; Status DC Sodium Chloride (NS Flush) 2 ml UNSCH PRN IV FLUSH FLUSH AFTER USING IV ACCESS Last administered on 08/11/16 03:00; Start 08/09/16 at 20:45 Sodium Chloride (NS Flush) 2 ml BID IV FLUSH Last administered on 4/23/17at 23: 36; Start 08/09/16 at 21:00 Naloxone HCl (Narcan Inj) 0.4 mg UNSCH PRN IV SEE LABEL COMMENTS; Start at 20:45 Hydromorphone HCl 0.2 mg 0.2 mg Q4H PRN IV PUSH pain>5 Last administered on 12:14; Start 08/09/16 at 23:45 Ciprofloxacin/ Dextrose 200 ml @ 200 mls/hr Q12H IV Last administered on 04:38; Start 08/10/16 at 05:00; Status Hold Metronidazole (Flagyl 500 Mg Inj) 100 ml @ 100 mls/hr Q6H IV Last administered on 08/14/16 11:32; Start 08/10/16 at 06:00; Status Hold Pantoprazole Sodium (Protonix) 40 mg DAILY PO Last administered on 08/15/16 09 :43; Start 08/10/16 at 09:00 Morphine Sulfate 2 mg 2 mg Q3H PRN IV PUSH pain >5 Last administered on 18:39; Start 08/10/16 at 08:00; Stop 08/12/16 at 07:21; Status DC Sodium Chloride (NS 1000 ml Inj) 1,000 ml @ 75 mls/hr [id number] IV Last administered on 08/12/16 05:08; Start 08/10/16 at 11:17; Stop 08/12/16 at 13:58 ; Status DC Simethicone (Mylicon Chew) 80 mg ONCE ONCE CHEW Last administered on 15:23; Start 08/12/16 at 14:00; Stop 08/12/16 at 14:01; Status DC Simethicone (Mylicon Chew) 80 mg PCHS PRN CHEW BLOATING; Start 08/12/16 at 14: 00 Furosemide (Lasix) 20 mg BID@09,18 PO Last administered on 08/15/16 17:19; Start 08/13/16 at 15:45 Potassium Chloride (KCl) 20 meq ONCE ONCE PO Last administered on 08/13/16 16 :00; Start 08/13/16 at 15:45; Stop 08/13/16 at 15:46; Status DC Spironolactone (Aldactone) 25 mg BID@09,18 PO Last administered on 08/15/16 17 :19; Start 08/14/16 at 09:00 Iohexol (Omnipaque 350 Inj) 50 ml STK-MED ONCE IV Last administered on 08:01; Start 08/15/16 at 08:01; Stop 08/15/16 at 08:02; Status DC Clonidine (Catapres) 0.1 mg ONCE ONCE PO Last administered on 08/16/16 04:13 ; Start 08/16/16 at 04:00; Stop 08/16/16 at 04:01; Status DC A/P Problem List: (1) Abdominal pain ICD Code: R10.9 Status: Acute Assessment and Plan 56-year-old female with history of CBD stricture s/p ERCP with stent placement 1 week ago presents with abdominal pain, nausea/vomiting Symptomatic ascites: Concern for malignancy. No hx of Alcohol use or cirrhosis. Imaging reviewed: CT abd showed Silastic biliary stent now present and appears appropriately positioned; Decreased intrahepatic biliary distention, now mild; Increased ascites, moderate; mild to moderate body wall edema/anasarca developing; Mild enteritis/colitis possible versus reactive wall thickening from the ascites. HIDA 08/10 shows nonvisualization of the gallbladder. -Consulted gastroenterology, per Dr. Whitehead,may need to have EUS. -Surgical oncology, Dr. Wylie, consulted. Not a good surgical candidate for cholecystectomy at this time. Symptoms not c/w cholecystitis at this time. 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 per GI may need repeat paracentesis. -supportive treatment with pain control and antiemetics prn. Simethicone prn. -Diuresis with Lasix and Aldactone for ascites -Palliative care oncology following. Pending recommendations. Acute Colitis: seen on CT abdomen as above -On IV Cipro/Flagyl for gastroenterology, will follow up with GI regarding diarrhea, hold antibiotics for now -diet as tolerated per gastroenterology -Recommending eating small portions to avoid simulating pain. Recent High Grade CBD Stricture: s/p ERCP with stent placement 07/31. Pathology revealed rare atypical cells present in the background of numerous glandular epithelial cells, malignancy cannot be excluded. LFTs have been trending down since stent placement. CT abd showed biliary stent appropriately positioned, decreased biliary distention, no pancreatitis. -Gastroenterology on board -Continue to monitor LFTs, stable, follow-up CMP. -may need EUS Leukocytosis with left shift: suspect from dehydration. Afebrile. -Given IVF and leukocytosis resolved. Hyponatremia: likely secondary to dehydration -Na 126 upon arrival -s/p IVF -improving, Na 132 -continue to monitor Hypokalemia: Secondary to poor by mouth intake. Potassium 3.3. Replaced orally. Repeat 3.6. Magnesium within normal limits. Diarrhea: Check C. difficile, discussed with RN. Hold antibiotics for now. DVT prophylaxiswith Lovenox Discharge Planning continues to be symptomatic. per GI may need EUS. Problem Qualifiers (1) Abdominal pain: Qualified Code: R10.11 - Right upper quadrant abdominal pain Maddie Jewell MD Aug 16, 2016 15:31
[2016-08-16] MEDS: SODIUM CHLORIDE 0.9% FLUSH 10 ML FLUSH IV FLUSH SCH ×2 (16:01→22:08)
[2016-08-16] MEDS: PANTOPRAZOLE SOD 40 MG DELAYED RELEASE TAB PO SCH (16:02)
[2016-08-16] MEDS: SPIRONOLACTONE 25 MG TAB PO SCH (16:02)
[2016-08-16] MEDS: FUROSEMIDE 20 MG TAB PO SCH ×2 (16:02→16:03)
--- NOTE | 2016-08-16 16:50 | HHI.GIFU ---
Subjective Remarks Pt sitting in chair. She says she has been unable to eat all day r/t right side pain. She also experiences diarrhea whenever she eats. No nausea, vomiting, blood in stool. (Giselle Nunez) Objective Vitals I&O Vital Signs Date Time Temp Pulse Resp B/P Pulse Ox O2 Delivery O2 Flow Rate FiO2 08/16/16 12:00 98.2 92 16 135/83 95 08/16/16 11:31 97.6 84 14 130/80 93 08/16/16 11:30 97.9 82 16 133/75 95 08/16/16 10:19 98.4 95 20 137/85 96 08/16/16 08:40 82 08/16/16 08:00 97.0 78 16 139/78 94 08/16/16 05:32 83 133/80 08/16/16 04:00 97.2 91 16 160/93 95 08/16/16 00:00 96.3 99 16 157/87 95 08/15/16 20:01 107 08/15/16 20:00 97.4 110 17 138/84 95 I/O 08/15/16 08/15/16 08/15/16 08/16/16 08/16/16 08/16/16 07:00 15:00 23:00 07:00 15:00 23:00 Intake Total 240 ml 240 ml 480 ml 240 ml Balance 240 ml 240 ml 480 ml 240 ml Intake Oral 240 ml 240 ml 480 ml 240 ml # Voids 2 5 2 1 # Bowel Movements 0 2 Laboratory Laboratory Tests Test 08/15/16 08/15/16 08/16/16 08/16/16 17:00 18:50 08:06 10:50 Stool C. difficile Toxin (PCR) NEGATIVE Stl C. difficile Toxin PRESUMPTIVE Epiderm 027 NEGATIVE White Blood Count 9.6 8.3 Red Blood Count 4.26 4.12 Hemoglobin 12.4 12.1 Hematocrit 36.2 35.2 Mean Corpuscular Volume 84.9 85.4 Mean Corpuscular Hemoglobin 29.0 29.3 Mean Corpuscular Hemoglobin 34.1 34.3 Concent Red Cell Distribution Width 15.1 15.0 Platelet Count 628 610 Mean Platelet Volume 7.6 8.2 Prothrombin Time 13.3 Prothromb Time International 1.2 Ratio Activated Partial 31.7 Thromboplast Time Sodium Level 129 Potassium Level 3.5 Chloride Level 90 Carbon Dioxide Level 29.5 Anion Gap 10 Blood Urea Nitrogen 7 Creatinine 0.60 Estimat Glomerular Filtration 103 Rate Random Glucose 114 Calcium Level 7.9 Lactate Dehydrogenase 200 Total Protein 7.2 Peritoneal Fluid WBC 109 Peritoneal Fluid RBC 2901 Peritoneal Fluid Neutrophils 1 Peritoneal Fluid Lymphocytes 93 Peritoneal Fluid Monocytes 1 Peritoneal Fluid Eosinophils 3 Peritoneal Fluid Histiocytes 1 Peritoneal Fluid Other Cells 1 Peritoneal Fluid Comment Peritoneal Fluid Total Protein 3.9 Peritoneal Fluid Albumin 1.5 Peritoneal Fluid LDH 233 Peritoneal Fluid Glucose 88 Peritoneal Fluid Amylase 39 Date/Time Procedure Status Source Growth 08/16/16 10:50 Gram Stain Received Fluid Peritoneal Fluid Pending 08/16/16 10:50 Body Fluid Culture Received Fluid Peritoneal Fluid Pending Imaging Last Impressions Cyst Biopsy Asp-Paracentesis US 08/16/16 0000 Signed Impressions: Service Date/Time: Tuesday, August 16, 2016 09:24 - CONCLUSION: Uncomplicated ultrasound guided paracentesis. Grady Wilson MD Pelvis Ultrasound 08/14/16 0000 Signed Impressions: Service Date/Time: Sunday, August 14, 2016 22:18 - CONCLUSION: 1. Moderate amount of ascites within the pelvis. 2. Lack of visualization of both ovaries. 3. No discrete mass observed. Bert Nunes Jr., MD Chest CT 08/14/16 0000 Signed Impressions: Service Date/Time: Monday, August 15, 2016 07:53 - CONCLUSION: Bilateral mild pleural effusions being greater on the right. Fadi Cordova MD Hepatobiliary Scan Nuclear Medicine 08/09/16 0000 Signed Impressions: Service Date/Time: Tuesday, August 09, 2016 20:50 - CONCLUSION: Nonvisualization of the gallbladder however the patient does have a stent in place. I reviewed the CT scan from the same day which failed to demonstrate any obvious gallbladder wall thickening. Delayed images of the gallbladder will be performed. Matt Tovar MD ADDENDUM: COMPARISON: BILIARY SCAN (HIDA), July 30, 2016, 13:41. A delayed image in anterior and right lateral projection was performed at 16 hours. There is no activity seen within the lumen of gallbladder. Since the patient has an indwelling biliary stent, absence of gallbladder visualization is nonpredictive with respect to cystic duct obstruction. Betr Brandon MD Abdomen/Pelvis CT 08/09/16 0000 Signed Impressions: Service Date/Time: Tuesday, August 09, 2016 17:46 - CONCLUSION: 1. Silastic biliary stent now present and appears appropriately positioned. Decreased intrahepatic biliary distention, now mild. No pancreatitis or other acute complication demonstrated. 2. Increased ascites, moderate. Also mild to moderate body wall edema/anasarca developing. 3. Mild enteritis/colitis possible versus reactive wall thickening from the ascites. In any event, no obstruction demonstrated. Fadi Yin MD Physical Exam HEENT: Normocephalic; atraumatic; no jaundice. CHEST: CTA. CARDIAC: RRR ABDOMEN: +Bs, soft, distended, mild RUQ tenderness, epigastric TTP; Ascites EXTREMITIES: Mild BLE, edema. SKIN: Normal; no rash; no jaundice. BOND MANAGER: No focal deficits; alert and oriented times three. (Giselle Nunez) Assessment and Plan Plan ASSESSMENT: - Abdominal pain, Nausea, Decreased appetite, Early Satiety. Pt was recently hospitalized for high grade CBD stricture and had ERCP with brushings and stent placement on 07/31/16 and was discharged on 08/03. She reports that her pain did improve at discharge, but never completely went away and it worsened with fevers/chills about 3 days ago. She is not able to describe this, but it does seem to be more diffuse. Abdomen/Pelvis CT (08/09/16) ----> 1. Silastic biliary stent now present and appears appropriately positioned. Decreased intrahepatic biliary distention, now mild. No pancreatitis or other acute complication demonstrated. 2. Increased ascites, moderate. Also mild to moderate body wall edema/anasarca developing. 3. Mild enteritis/colitis possible versus reactive wall thickening from the ascites. In any event, no obstruction demonstrated. HIDA (08/09/16)----> Nonvisualization of the gallbladder however the patient does have a stent in place. I reviewed the CT scan from the same day which failed to demonstrate any obvious gallbladder wall thickening. Delayed images of the gallbladder will be performed. 13:41: A delayed image in anterior and right lateral projection was performed at 16 hours. There is no activity seen within the lumen of gallbladder. Since the patient has an indwelling biliary stent, absence of gallbladder visualization is non- predictive with respect to cystic duct obstruction. Of note, her LFTs have been trending down since her stent placement. GS following, does not feel she is a candidate to have cholecystectomy. s/p paracentesis 08/16, cytology pending - Malignant ascites. Pt reports fevers/chills x 3 days. s/p paracentesis 08/16, cytology pending Cyst Biopsy Asp-Paracentesis US (08/11/16)----> Uncomplicated ultrasound guided paracentesis with 5000cc of fluid removed. 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 Pt developing more abdominal distention/ ascites. Was started on Lasix 20mg po BID and Spironolactone 25mg po BID AFP 2.1, CEA 1.1, Ca19-9 14.4, Ca 125 338.4. Further imaging unable to identify source of malignant cells. Oncology is following. - Leukocytosis. BCx no growth 5 days. Peritoneal fluid no growth 48h. - High grade CBD stricture. S/P ERCP with brushings/stent placement (07/31/16)---- > intra hepatic duct dilatation, s/p brushings, s/p stent placement. Pathology revealed rare atypical cells present in the background of numerous glandular epithelial cells, malignancy cannot be excluded. LFTs have been trending down since stent placement. AFP during last hospitalization was 2.4. Ca19-9 10.7 , CEA 1.2, Ca 125 338.4. - ? Underlying liver disease, ?Cirrhosis. Hepatitis panel negative. ARAMIS negative. AMA < 20.0, ASMA negative, AFP 2.1, Iron saturation 27.9, Ferritin 41, Ceruloplasmin 36, Alpha 1 Antitrypsin 191. PLAN: - 2 gram sodium diet - Cont. Spironolactone and Lasix - Daily weights - Strict I&Os - Cont. PPI - Stool for C. diff is ordered - Monitor labs - Palliative care consulted - GS following - Supportive care - Further recommendations as the case develops - Pt seen and examined by Dr. Samaniego and myself and this note is written on his behalf (Mayra,Giselle S ADMISSION NURSE) Physician Comments Patient seen and examined Agree with above Continue with current supportive care Monitor labs C. difficile is negative Patient will probably require endoscopic ultrasound we will attempt to proceed tomorrow (Preet Samaniego MD) Giselle Nunez Aug 16, 2016 16:50 Preet Samaniego MD Aug 16, 2016 20:35
[2016-08-17] VITALS (16 sets, daily range): BP systolic 109–201; BP diastolic 62–105; PULSE 85–149; RESP 16–36; TEMP 97–103; O2SAT 78–99
[2016-08-17] MEDS: HYDROmorphone HCL PF 1 MG/ML VIAL IV PUSH PRN ×2 (04:44→09:22)
[2016-08-17] MEDS: PANTOPRAZOLE SOD 40 MG DELAYED RELEASE TAB PO SCH (09:28)
[2016-08-17] MEDS: FUROSEMIDE 20 MG TAB PO SCH ×3 (09:29→21:16)
[2016-08-17] MEDS: SPIRONOLACTONE 25 MG TAB PO SCH ×3 (09:29→21:16)
[2016-08-17] MEDS: SODIUM CHLORIDE 0.9% FLUSH 10 ML FLUSH IV FLUSH SCH ×2 (09:31→21:16)
[2016-08-17] MEDS ORDERED: PROPOFOL 200 MG/20 ML AMP IV ONE (14:14)
[2016-08-17] MEDS ORDERED: DO NOT ADM ANY ANTICOAGULANT DRUGS PRN (14:58)
--- NOTE | 2016-08-17 18:04 | PD.PROCEDR ---
GI Procedure REFERRING PHYSICIAN Dr. Evans PROCEDURE PERFORMED EUS INDICATION FOR PROCEDURE Biliary stricture malignant ascites PROCEDURE: The procedure, risks and benefits were discussed with Ms. Guo and informed consent was obtained. Anesthesia sedated her with Diprivan. She was placed in the left lateral decubitus position. EUS: The Pentax ultrasound videoscope was introduced through the oropharynx and advanced to the second portion of the duodenum under direct visualization. FINDINGS: The pancreas was scanned with the radial scope from head to tail no abnormalities were noted no mass was seen in the pancreatic duct was within normal limits The common bile duct was identified due to the fact that it contained a biliary stent it was decompressed no tumor was noted along its path but I was unable to evaluate the common bile duct at the bifurcation which is where the lesion was noted on ERCP No lymphadenopathy was seen ESTIMATED BLOOD LOSS: None SPECIMENS REMOVED: None COMPLICATIONS: None IMPRESSION: Unremarkable endoscopic ultrasound PLAN: Continue with current supportive care Further recommendations as per the oncology team Preet Samaniego MD Aug 17, 2016 18:04
[2016-08-17] MEDS ORDERED: RESP: ALBUTEROL 2.5 MG/3 ML NEB (PRN) INH (18:15)
[2016-08-17 18:29] LABS: BLOOD GAS BASE EXCESS 2.5 mmol/L (-2-2); BLOOD GAS CARBOXYHEMOGLOBIN 1.3 % (0-4); BLOOD GAS HCO3 26 mmol/L (22-26); BLOOD GAS METHEMOGLOBIN 1.3 % (0-2); BLOOD GAS O2 HGB SATURATION 94 % (90-100); BLOOD GAS OXYGEN CONTENT 16.8 Vol % (12.0-20.0); BLOOD GAS PCO2 33 mmHg (38-42); BLOOD GAS PO2 80 mmHg (61-120); BLOOD GAS TOTAL HGB 12.7 G/DL (12.0-16.0); TEMP CORR TO 98.6
[2016-08-17 18:30] LABS: CRITICAL VALUE NO; DRAW SITE RT RADIAL; LITER FLOW 15 L/M; NUMBER OF ARTERIAL PUNCTURES 1; STAT YES; ULNAR PULSE PRESENT
[2016-08-17] MEDS ORDERED: methylPREDNISolone SOD SUCC 125 MG/2 ML VIAL IV PUSH ONE (18:30)
--- NOTE | 2016-08-17 18:35 | HHI.PR ---
Subjective Remarks Follow-up for abdominal pain and ascites Patient seen after her EGD/EUS and respiratory failure. Per patient's nurse after the procedure patient was hypoxic at 78 so a nonrebreather was placed. She also is hypertensive with systolic blood pressure in the 200s and tachycardic up to the 140s. Patient stated that she does feel shortness of breathing. She has no history of any respiratory conditions. Her brother is at the bedside who speaks [place]. Emergency translation was needed so her brother translated. Unable to get on line towerman quickly. Per patient as translated through her brother she does feel she short of breath. Denied any pain. Objective Vitals Vital Signs Date Time Temp Pulse Resp B/P Pulse Ox O2 Delivery O2 Flow Rate FiO2 08/17/16 17:45 103.0 08/17/16 17:41 99.9 139 28 201/102 93 08/17/16 17:41 93 Non-Rebreather 08/17/16 17:30 94 15.00 08/17/16 17:30 98.7 136 24 184/105 78 08/17/16 16:43 98 18 163/104 93 08/17/16 16:00 98.7 93 18 142/67 92 08/17/16 15:15 99 26 156/85 97 Nasal Cannula 3 08/17/16 15:00 105 25 152/86 98 Nasal Cannula 3 08/17/16 14:55 98.1 110 27 136/87 95 Nasal Cannula 3 08/17/16 13:21 98.2 79 18 144/86 100 08/17/16 12:45 98.2 88 16 109/62 97 08/17/16 11:25 97.3 85 18 122/81 94 08/17/16 11:17 98 08/17/16 08:00 97.0 98 18 143/82 94 08/17/16 04:30 98.7 99 18 139/83 94 08/17/16 00:55 98.4 96 16 138/80 94 08/16/16 21:00 97.1 99 18 147/76 95 08/16/16 20:00 105 I/O 08/16/16 08/16/16 08/16/16 08/17/16 08/17/16 08/17/16 07:00 15:00 23:00 07:00 15:00 23:00 Intake Total 240 ml 480 ml 480 ml 440 ml Balance 240 ml 480 ml 480 ml 440 ml Intake Oral 240 ml 480 ml 480 ml 240 ml Other 200 ml # Voids 1 1 1 2 # Bowel Movements 0 Result Diagram: 08/16/1680508/16/16805 Objective Remarks GENERAL: In respiratory distress with RR in 30s. NECK: Supple, trachea midline. No JVD or lymphadenopathy. CARDIOVASCULAR: Regular rate and rhythm without murmurs, gallops, or rubs. RESPIRATORY: Poor aeration with some exp wheezing. Airway sounds very tight. GASTROINTESTINAL: Abdomen soft. Positive tenderness palpation in the right upper quadrant epigastric area. Negative peritoneal signs. Normoactive bowel sounds. MUSCULOSKELETAL: No cyanosis, or edema. BACK: Nontender without obvious deformity. No CVA tenderness. Medications and IVs Current Medications Morphine Sulfate (Morphine Inj) 4 mg ONCE ONCE IV PUSH Last administered on 16:39; Start 08/09/16 at 16:15; Stop 08/09/16 at 16:16; Status DC Ondansetron HCl 4 mg 4 mg ONCE ONCE IVP Last administered on 08/09/16 16:38; Start 08/09/16 at 16:15; Stop 08/09/16 at 16:16; Status DC Sodium Chloride (NS 1000 ml Inj) 1,000 ml @ 1,000 mls/hr Q1H IV Last administered on 08/09/16 16:39; Start 08/09/16 at 16:03; Stop 08/09/16 at 17:02 ; Status DC Sodium Chloride (NS Flush) 2 ml UNSCH PRN IV FLUSH FLUSH AFTER USING IV ACCESS Last administered on 08/09/16 20:01; Start 08/09/16 at 16:15; Stop 08/10/16 at 11:08; Status DC Ketorolac Tromethamine (Toradol Inj) 30 mg ONCE ONCE IVP Last administered on 08/09/16 16:38; Start 08/09/16 at 16:15; Stop 08/09/16 at 16:16; Status DC Iohexol 85 ml 85 ml STK-MED ONCE IV Last administered on 08/09/16 17:50; Start 08/09/16 at 17:50; Stop 08/09/16 at 17:51; Status DC Vancomycin HCl 1000 mg/Sodium Chloride 250 ml @ 250 mls/hr ONCE STAT IV Last administered on 08/09/16 20:01; Start 08/09/16 at 18:42; Stop 08/09/16 at 19:41 ; Status DC Aztreonam 2000 mg/ Sodium Chloride 100 ml @ 200 mls/hr ONCE STAT IV Last administered on 08/09/16 20:51; Start 08/09/16 at 18:42; Stop 08/09/16 at 19:11 ; Status DC Metronidazole (Flagyl 500 Mg Inj) 100 ml @ 100 mls/hr ONCE STAT IV Last administered on 08/09/16 20:01; Start 08/09/16 at 18:42; Stop 08/09/16 at 19:41 ; Status DC Sodium Chloride (NS Flush) 2 ml UNSCH PRN IV FLUSH FLUSH AFTER USING IV ACCESS Last administered on 08/11/16 03:00; Start 08/09/16 at 20:45 Sodium Chloride (NS Flush) 2 ml BID IV FLUSH Last administered on 08/17/16 09: 31; Start 08/09/16 at 21:00 Naloxone HCl (Narcan Inj) 0.4 mg UNSCH PRN IV SEE LABEL COMMENTS; Start at 20:45 Hydromorphone HCl 0.2 mg 0.2 mg Q4H PRN IV PUSH pain>5 Last administered on 09:22; Start 08/09/16 at 23:45 Ciprofloxacin/ Dextrose 200 ml @ 200 mls/hr Q12H IV Last administered on 04:38; Start 08/10/16 at 05:00; Status Hold Metronidazole (Flagyl 500 Mg Inj) 100 ml @ 100 mls/hr Q6H IV Last administered on 08/14/16 11:32; Start 08/10/16 at 06:00; Status Hold Pantoprazole Sodium (Protonix) 40 mg DAILY PO Last administered on 08/17/16 09 :28; Start 08/10/16 at 09:00 Morphine Sulfate 2 mg 2 mg Q3H PRN IV PUSH pain >5 Last administered on 18:39; Start 08/10/16 at 08:00; Stop 08/12/16 at 07:21; Status DC Sodium Chloride (NS 1000 ml Inj) 1,000 ml @ 75 mls/hr [id number] IV Last administered on 08/12/16 05:08; Start 08/10/16 at 11:17; Stop 08/12/16 at 13:58 ; Status DC Simethicone (Mylicon Chew) 80 mg ONCE ONCE CHEW Last administered on 15:23; Start 08/12/16 at 14:00; Stop 08/12/16 at 14:01; Status DC Simethicone (Mylicon Chew) 80 mg PCHS PRN CHEW BLOATING; Start 08/12/16 at 14: 00 Furosemide (Lasix) 20 mg BID@09,18 PO Last administered on 08/17/16 09:29; Start 08/13/16 at 15:45 Potassium Chloride (KCl) 20 meq ONCE ONCE PO Last administered on 08/13/16 16 :00; Start 08/13/16 at 15:45; Stop 08/13/16 at 15:46; Status DC Spironolactone (Aldactone) 25 mg BID@09,18 PO Last administered on 08/17/16 09 :29; Start 08/14/16 at 09:00 Iohexol (Omnipaque 350 Inj) 50 ml STK-MED ONCE IV Last administered on 08:01; Start 08/15/16 at 08:01; Stop 08/15/16 at 08:02; Status DC Clonidine (Catapres) 0.1 mg ONCE ONCE PO Last administered on 08/16/16 04:13 ; Start 08/16/16 at 04:00; Stop 08/16/16 at 04:01; Status DC Propofol (Diprivan 200 Mg/20 ml Inj) 450 mg STK-MED ONCE IV ; Start 08/17/16 at 14:14; Stop 08/17/16 at 15:01; Status DC Fentanyl Citrate (fentaNYL INJ) 100 mcg STK-MED ONCE .ROUTE ; Start 08/17/16 at 15:02; Stop 08/17/16 at 15:03; Status DC Miscellaneous Information ALL NURSING DEPARTME... UNSCH PRN .XX SEE LABEL COMMENTS; Start 08/17/16 at 14:58; Stop 08/18/16 at 14:57 Albuterol/ Ipratropium (Duoneb Neb) 1 ampule Q4HR NEB NEB ; Start 08/17/16 at 18:00 Methylprednisolone Sodium Succinate (SoluMEDROL INJ) 125 mg ONCE ONCE IV PUSH Last administered on 08/17/16t 18:20; Start 08/17/16 at 18:30; Stop 08/17/16 at 18:31 Methylprednisolone Sodium Succinate (SoluMEDROL INJ) 60 mg Q6HR IV PUSH ; Start 08/18/16 at 00:00 Albuterol Sulfate (Albuterol Neb) 2.5 mg Q4HR NEB PRN INH SHORTNESS OF BREATH; Start 08/17/16 at 18:15 A/P Problem List: (1) Abdominal pain ICD Code: R10.9 Status: Acute Assessment and Plan 56-year-old female with history of CBD stricture s/p ERCP with stent placement 1 week ago presents with abdominal pain, nausea/vomiting Respiratory failure with hypoxia -Occurred after ERCP/EUS -We will get a stat ABG, chest x-ray. -Since patient decreased variation with some wheezing will give Solu-Medrol and nebulizers. -I spoke with the athletic events scorer Dr. Mccarthy in regards to possible intubation. Dr. Dudley stated that he will evaluate the patient. Consult for athletic events scorer placed. -Stat CBC,BMP,BNP,blood cultures,lactic acid were also obtained. Symptomatic ascites: Concern for malignancy. No hx of Alcohol use or cirrhosis. Imaging reviewed: CT abd showed Silastic biliary stent now present and appears appropriately positioned; Decreased intrahepatic biliary distention, now mild; Increased ascites, moderate; mild to moderate body wall edema/anasarca developing; Mild enteritis/colitis possible versus reactive wall thickening from the ascites. HIDA 08/10 shows nonvisualization of the gallbladder. -Consulted gastroenterology, per Dr. Whitehead, -Surgical oncology, Dr. Wylie, consulted. Not a good surgical candidate for cholecystectomy at this time. Symptoms not c/w cholecystitis at this time. -s/p U/S guided abdominal paracentesis 08/11 removed 5L green cloudy fluid, WBC 1320, RBC 897, cytology with features consistent with a non-small cell neoplasm -tumor markers remarkable for CA-125 elevated at 338 -Ascites fluid culture negative. -supportive treatment with pain control and antiemetics prn. Simethicone prn. -Diuresis with Lasix and Aldactone for ascites -Palliative care oncology following. -Patient had repeat paracentesis done on 08/16/2016. -Patient had ERCP/EUS done today on 08/17/2016. Acute Colitis: seen on CT abdomen as above -On IV Cipro/Flagyl for gastroenterology, will follow up with GI regarding diarrhea, hold antibiotics for now -diet as tolerated per gastroenterology -Recommending eating small portions to avoid simulating pain. Recent High Grade CBD Stricture: s/p ERCP with stent placement 07/31. Pathology revealed rare atypical cells present in the background of numerous glandular epithelial cells, malignancy cannot be excluded. LFTs have been trending down since stent placement. CT abd showed biliary stent appropriately positioned, decreased biliary distention, no pancreatitis. -Gastroenterology on board -Continue to monitor LFTs, stable, follow-up CMP. Leukocytosis with left shift: suspect from dehydration. Afebrile. -Given IVF and leukocytosis resolved. Hyponatremia: likely secondary to dehydration -Na 126 upon arrival -s/p IVF -Today decrease. -Most likely secondary to third spacing. Hypokalemia: Secondary to poor by mouth intake. Potassium 3.3. Replaced orally. Repeat 3.6. Magnesium within normal limits. Diarrhea: Check C. difficile, discussed with RN. Hold antibiotics for now. DVT prophylaxiswith Lovenox Discharge Planning Patient now respiratory distress and may need to be intubated. She is being transferred to the [facility] and athletic events scorer was consulted. Problem Qualifiers (1) Abdominal pain: Qualified Code: R10.11 - Right upper quadrant abdominal pain Maddie Jewell MD Aug 17, 2016 18:35
--- NOTE | 2016-08-17 18:36 | RADRPT ---
EXAM DATE/TIME: 08/17/2016 17:57 [facility] COMPARISON: CT THORAX W CONTRAST, August 15, 2016, 7:53. INDICATIONS : Short of breath. MEDICAL HISTORY : Cardiac disorder. SURGICAL HISTORY : Biliary stent placements. ENCOUNTER: Subsequent ACUITY: 1 day PAIN SCORE: 0/10 LOCATION: Bilateral chest FINDINGS: A single view of the chest demonstrates scattered air space disease greater throughout the left lung. Heart borderline enlarged. Osseous structures are intact. CONCLUSION: Scattered airspace disease could be layering pleural effusions greater on the left. Pulmonary edema c annot be excluded. Grady Wilson MD on August 17, 2016 at 18:33 Board Certified Radiologist. This report was verified electronically.
[2016-08-17] MEDS ORDERED: METOPROLOL TARTRATE 5 MG/5 ML VIAL IV PUSH PRN (18:45)
--- NOTE | 2016-08-17 18:56 | PD.CONS ---
[facility] Service Critical Care Medicine Consult Requested By Dr. Jewell Reason for Consult Severe Sepsis, pneumonia Primary Care Physician No Primary Care Physician History of Present Illness 56 y/o presented one week ago with vague abdominal pain. Upper endoscopy today with ERCP. No with Temp 103, P 146, SBP 200, SOB, no chest pain, no abdominal pain. Now with WBC 21,000. Clearly septic. I will hold lasix tonight (despite ascites and pleural effusions) and treat as sepsis. 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 Primary mass unknown Review of Systems ROS Mild abdominal pain RUQ. No chest pain. Past Family Social History Allergies: Coded Allergies: Penicillin (Verified Allergy, Unknown, 08/09/16) Physical Exam Vital Signs Vital Signs Date Time Temp Pulse Resp B/P Pulse Ox O2 Delivery O2 Flow Rate FiO2 08/17/16 17:45 103.0 08/17/16 17:41 99.9 139 28 201/102 93 08/17/16 17:41 93 Non-Rebreather 08/17/16 17:30 94 15.00 08/17/16 17:30 98.7 136 24 184/105 78 08/17/16 16:43 98 18 163/104 93 08/17/16 16:00 98.7 93 18 142/67 92 08/17/16 15:15 99 26 156/85 97 Nasal Cannula 3 08/17/16 15:00 105 25 152/86 98 Nasal Cannula 3 08/17/16 14:55 98.1 110 27 136/87 95 Nasal Cannula 3 08/17/16 13:21 98.2 79 18 144/86 100 08/17/16 12:45 98.2 88 16 109/62 97 08/17/16 11:25 97.3 85 18 122/81 94 08/17/16 11:17 98 08/17/16 08:00 97.0 98 18 143/82 94 08/17/16 04:30 98.7 99 18 139/83 94 08/17/16 00:55 98.4 96 16 138/80 94 08/16/16 21:00 97.1 99 18 147/76 95 08/16/16 20:00 105 Physical Exam P 148, BP 201/102, R 36, T 103 Head: Normal. Neck: Supple, airway patent. Lungs: Rhonchi left, good kelly air movement. Labored, tachypneic. Heart: Clear tones, NL S1S2, No JVD Abdomen: Soft, tender RUQ, no peritoneal irritation, BS few. Extremities: Warm, flushed. Neuro: Lethargic, but responds quickly. Does not speak Greek. Moves 4 limbs, VITO. Laboratory Laboratory Tests Test 08/17/16 18:20 Blood Gas Puncture Site RT RADIAL Blood Gas Patient Temperature 98.6 Blood Gas HCO3 26 Blood Gas Base Excess 2.5 Blood Gas Oxygen Saturation 94 Arterial Blood pH 7.50 Arterial Blood Partial 33 Pressure CO2 Arterial Blood Partial 80 Pressure O2 Arterial Blood Oxygen Content 16.8 Arterial Blood 1.3 Carboxyhemoglobin Arterial Blood Methemoglobin 1.3 Blood Gas Hemoglobin 12.7 Oxygen Delivery Device Non-Rebreathing Mask Blood Gas Liter Flow 15 Date/Time Procedure Status Source Growth 08/16/16 10:50 Gram Stain - Final Resulted Fluid Peritoneal Fluid 08/16/16 10:50 Body Fluid Culture - Preliminary Resulted Fluid Peritoneal Fluid NO GROWTH IN 24 HOURS. Result Diagram: 08/16/16 0808/16/16 08 Assessment and Plan Assessment and Plan Assessment: 1. Hypoxemic respiratory failure. 2. Severe Sepsis. 3. 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 4. CBD stricture - stented 7 days ago. Plan: Plan: Respiratory failure with hypoxia -Occurred after ERCP/EUS -Since patient decreased variation with some wheezing will give Solu-Medrol and nebulizers. -Stat CBC,BMP,BNP,blood cultures,lactic acid were also obtained. -Move to [facility]. Symptomatic ascites: Concern for malignancy. No hx of Alcohol use or cirrhosis. Imaging reviewed: CT abd showed Silastic biliary stent now present and appears appropriately positioned; Decreased intrahepatic biliary distention, now mild; Increased ascites, moderate; mild to moderate body wall edema/anasarca developing; Mild enteritis/colitis possible versus reactive wall thickening from the ascites. HIDA 08/10 shows nonvisualization of the gallbladder. -Consulted gastroenterology, per Dr. Whitehead, -Surgical oncology, Dr. Wylie, consulted. Not a good surgical candidate for cholecystectomy at this time. Symptoms not c/w cholecystitis at this time. -s/p U/S guided abdominal paracentesis 08/11 removed 5L green cloudy fluid, WBC 1320, RBC 897, cytology with features consistent with a non-small cell neoplasm -tumor markers remarkable for CA-125 elevated at 338 -Ascites fluid culture negative. -supportive treatment with pain control and antiemetics prn. Simethicone prn. -Diuresis with Lasix and Aldactone for ascites -Palliative care oncology following. -Patient had repeat paracentesis done on 08/16/2016. -Patient had ERCP/EUS done today on 08/17/2016. Acute Colitis: seen on CT abdomen as above -On IV Cipro/Flagyl for gastroenterology, will follow up with GI regarding diarrhea -diet as tolerated per gastroenterology -Recommending eating small portions to avoid simulating pain. -Restart broad antibiotics Recent High Grade CBD Stricture: s/p ERCP with stent placement 07/31. Pathology revealed rare atypical cells present in the background of numerous glandular epithelial cells, malignancy cannot be excluded. LFTs have been trending down since stent placement. CT abd showed biliary stent appropriately positioned, decreased biliary distention, no pancreatitis. -Gastroenterology on board -Continue to monitor LFTs, stable, follow-up CMP. Hyponatremia: likely secondary to dehydration -Na 126 upon arrival -s/p IVF -Today decrease. -Most likely secondary to third spacing. Hypokalemia: Secondary to poor by mouth intake. Potassium 3.3. Replaced orally. Repeat 3.6. Magnesium within normal limits. Diarrhea: Check C. difficile, discussed with RN. DVT prophylaxiswith Lovenox Overall impression: This woman is critically ill with sudden leukocytosis and respiratory distress. She has a new, large left lung infiltrate and hypoxemia. Penicillin allergy complicates care. Malignant cells in ascites further clouds the issue. She presented with colitis, concern for C. diff, but lung infiltrate requires treatment for sepsis. She will require intubation shortly. Critical care 45 mins aside from procedures. Ronald Young MD Aug 17, 2016 18:56
[2016-08-17] MEDS ORDERED: ACETAMINOPHEN 1000 MG/100 ML VIAL IV ONE (19:00)
[2016-08-17 19:41] LABS: AUTOMATED NEUTROPHIL # 19.9 TH/MM3 (1.8-7.7); BASOPHIL % 0.2 % (0.0-2.0); EOSINOPHIL % 0.1 % (0.0-4.0); HEMATOCRIT 36.9 % (35.0-46.0); HEMO FLAGS DIFF FINAL; LYMPHOCYTE # 0.4 TH/MM3 (1.0-4.8); MEAN CELL VOLUME 85.5 FL (80.0-100.0); MEAN CORPUSCULAR HEMOGLOBIN 29.1 PG (27.0-34.0); MONO % 3.5 % (0.0-8.0); NEUT % 94.2 % (16.0-70.0); PLATELET COUNT 591 TH/MM3 (150-450); RED BLOOD COUNT 4.32 MIL/MM3 (4.00-5.30); RED CELL DISTRIBUTION WIDTH 15.3 % (11.6-17.2); WHITE BLOOD COUNT 21.2 TH/MM3 (4.0-11.0)
[2016-08-17] MEDS: RESP: ALBUTEROL 2.5 MG/IPRATROPIUM 0.5 MG NEB (SCH) NEB ×2 (20:08→23:50)
[2016-08-17 20:13] LABS: BACTERIA, URINE FEW /hpf; BLOOD, URINE SMALL (NEG); GLUCOSE,URINE NEG (NEG); KETONE, URINE 10 mg/dL (NEG); MUCUS URINE FEW /lpf (OCC); NITRITE,URINE NEG (NEG); PH, URINE 6.5 (5.0-8.5); SQUAMOUS EPITHELIAL CELL URINE 4 /hpf (0-5); TRANSITIONAL EPI CELLS, URINE <1 /hpf; URINE COLOR YELLOW (YELLW/STRAW)
[2016-08-17 20:14] LABS: COMMENT (UR) CATH-CULTURE IND; CULTURE IF INDICATED CATH CULTURE IND
[2016-08-17 20:51] LABS: ALKALINE PHOSPHATASE 579 U/L (45-117); ALT (GPT) 22 U/L (10-53); ANION GAP 14 MEQ/L (5-15); AST (GOT) 63 U/L (15-37); BICARBONATE 23.7 MEQ/L (21.0-32.0); BLOOD UREA NITROGEN 9 MG/DL (7-18); CHLORIDE 91 MEQ/L (98-107); GLOMERULAR FILTRATION RATE 101 ML/MIN (>89); POTASSIUM 4.2 MEQ/L (3.5-5.1); SODIUM (NA) 129 MEQ/L (136-145); TOTAL BILIRUBIN ADULT 1.1 MG/DL (0.2-1.0)
[2016-08-17] MEDS: METOPROLOL TARTRATE 25 MG TAB PO SCH (21:16)
[2016-08-17] MEDS: CEFEPIME INJ 2,000 MG in SODIUM CHLORIDE 0.9% INJ 100 ML IV SCH (21:41)
[2016-08-17] MEDS ORDERED: diphenhydrAMINE HCL 50 MG/ML VIAL IV PUSH PRN (22:00)
[2016-08-17] MEDS: metroNIDAZOLE 500 MG INJ 100 ML IV SCH (23:45)
[2016-08-17] MEDS: methylPREDNISolone SOD SUCC 125 MG/2 ML VIAL IV PUSH SCH (23:45)
[2016-08-18] VITALS (11 sets, daily range): BP systolic 122–151; BP diastolic 67–88; PULSE 86–98; RESP 20–24; TEMP 97.8–99; O2SAT 93–96
[2016-08-18] MEDS ORDERED: CHLORHEXIDINE GLUCONATE 2 % 1 PACK (2 CLOTHS)(extra cloths) TOPICAL PRN (02:30)
[2016-08-18] MEDS: RESP: ALBUTEROL 2.5 MG/IPRATROPIUM 0.5 MG NEB (SCH) NEB ×6 (02:58→22:57)
[2016-08-18] MEDS: CHLORHEXIDINE GLUCONATE 2 % 1 PACK (2 CLOTHS)(taper/protocol) TOPICAL SCH (04:00)
[2016-08-18 05:17] LABS: BICARBONATE 28.6 MEQ/L (21.0-32.0); POTASSIUM 3.8 MEQ/L (3.5-5.1)
[2016-08-18 05:20] LABS: AUTOMATED NEUTROPHIL # 28.3 TH/MM3 (1.8-7.7); HEMATOCRIT 35.5 % (35.0-46.0); HEMO FLAGS DIFF FINAL; LYMPH % 1.8 % (9.0-44.0); LYMPHOCYTE # 0.5 TH/MM3 (1.0-4.8); MEAN CELL VOLUME 86.2 FL (80.0-100.0); MEAN CORPUSCULAR HEMOGLOBIN 28.3 PG (27.0-34.0); MEAN CORPUSCULAR HGB CONC 32.8 % (32.0-36.0); MONO % 0.8 % (0.0-8.0); NEUT % 97.4 % (16.0-70.0); PLATELET COUNT 481 TH/MM3 (150-450); RED BLOOD COUNT 4.12 MIL/MM3 (4.00-5.30); RED CELL DISTRIBUTION WIDTH 15.2 % (11.6-17.2); WHITE BLOOD COUNT 29.1 TH/MM3 (4.0-11.0)
[2016-08-18] MEDS: metroNIDAZOLE 500 MG INJ 100 ML IV SCH ×3 (05:58→17:41)
[2016-08-18] MEDS: methylPREDNISolone SOD SUCC 125 MG/2 ML VIAL IV PUSH SCH ×3 (05:58→17:40)
--- NOTE | 2016-08-18 07:56 | HHI.GIFU ---
Subjective Remarks [employer] service. Pt was transferred overnight to unit for respiratory difficulty. She reports she is breathing better now. Low grade fevers. C/O early satiety with epigastric pain if she eats anything. Not much of an appetite. No nausea/vomiting. No further diarrhea. (Elena Lowery) Objective Vitals I&O Vital Signs Date Time Temp Pulse Resp B/P Pulse Ox O2 Delivery O2 Flow Rate FiO2 08/18/16 04:00 98 08/18/16 04:00 98.6 98 20 127/67 95 08/18/16 03:26 95 Nasal Cannula 3.00 08/18/16 00:00 99.0 86 20 122/68 96 08/18/16 00:00 86 08/17/16 22:31 96 Venturi Mask 50 08/17/16 22:30 100 Venturi Mask 50 08/17/16 22:00 100 08/17/16 20:10 99 Non-Rebreather 15.00 08/17/16 20:00 101.1 129 27 134/71 99 08/17/16 20:00 99 Non-Rebreather 08/17/16 20:00 129 08/17/16 18:45 95 Non-Rebreather 08/17/16 18:00 103.0 149 36 142/80 97 08/17/16 17:45 103.0 08/17/16 17:41 99.9 139 28 201/102 93 08/17/16 17:41 93 Non-Rebreather 08/17/16 17:30 94 15.00 08/17/16 17:30 98.7 136 24 184/105 78 08/17/16 16:43 98 18 163/104 93 08/17/16 16:00 98.7 93 18 142/67 92 08/17/16 15:15 99 26 156/85 97 Nasal Cannula 3 08/17/16 15:00 105 25 152/86 98 Nasal Cannula 3 08/17/16 14:55 98.1 110 27 136/87 95 Nasal Cannula 3 08/17/16 13:21 98.2 79 18 144/86 100 08/17/16 12:45 98.2 88 16 109/62 97 08/17/16 11:25 97.3 85 18 122/81 94 4/25/17 11:17 98 08/17/16 08:00 97.0 98 18 143/82 94 I/O 08/17/16 08/17/16 08/17/16 08/18/16 08/18/16 08/18/16 07:00 15:00 23:00 07:00 15:00 23:00 Intake Total 440 ml 680 ml 100 ml Output Total 125 ml 300 ml Balance 440 ml 555 ml -200 ml Intake Oral 240 ml 480 ml 0 ml IV Total 200 ml 100 ml Other 200 ml Output Urine Total 125 ml 300 ml # Voids 1 2 # Bowel Movements 0 0 0 Laboratory Laboratory Tests Test 08/17/16 08/17/16 08/17/16 08/17/16 18:00 18:20 18:53 19:10 Nasal Screen MRSA (PCR) MRSA NOT DETECTED Blood Gas Puncture Site RT RADIAL Blood Gas Patient Temperature 98.6 Blood Gas HCO3 26 Blood Gas Base Excess 2.5 Blood Gas Oxygen Saturation 94 Arterial Blood pH 7.50 Arterial Blood Partial 33 Pressure CO2 Arterial Blood Partial 80 Pressure O2 Arterial Blood Oxygen Content 16.8 Arterial Blood 1.3 Carboxyhemoglobin Arterial Blood Methemoglobin 1.3 Blood Gas Hemoglobin 12.7 Oxygen Delivery Device Non-Rebreathing Mask Blood Gas Liter Flow 15 Urine Color YELLOW Urine Turbidity HAZY Urine pH 6.5 Urine Specific [place] 1.015 Urine Protein 30 Urine Glucose (UA) NEG Urine Ketones 10 Urine Occult Blood SMALL Urine Nitrite NEG Urine Bilirubin NEG Urine Urobilinogen LESS THAN 2.0 Urine Leukocyte Esterase NEG Urine RBC 12 Urine WBC 5 Urine Squamous Epithelial 4 Cells Urine Transitional Epithelial <1 Cells Urine Bacteria FEW Urine Mucus FEW Microscopic Urinalysis Comment CATH-CULTURE IND White Blood Count 21.2 Red Blood Count 4.32 Hemoglobin 12.6 Hematocrit 36.9 Mean Corpuscular Volume 85.5 Mean Corpuscular Hemoglobin 29.1 Mean Corpuscular Hemoglobin 34.0 Concent Red Cell Distribution Width 15.3 Platelet Count 591 Mean Platelet Volume 7.9 Neutrophils (%) (Auto) 94.2 Lymphocytes (%) (Auto) 2.0 Monocytes (%) (Auto) 3.5 Eosinophils (%) (Auto) 0.1 Basophils (%) (Auto) 0.2 Neutrophils # (Auto) 19.9 Lymphocytes # (Auto) 0.4 Monocytes # (Auto) 0.7 Eosinophils # (Auto) 0.0 Basophils # (Auto) 0.0 CBC Comment DIFF FINAL Differential Comment Sodium Level 129 Potassium Level 4.2 Chloride Level 91 Carbon Dioxide Level 23.7 Anion Gap 14 Blood Urea Nitrogen 9 Creatinine 0.61 Estimat Glomerular Filtration 101 Rate Random Glucose 109 Calcium Level 7.9 Total Bilirubin 1.1 Aspartate Amino Transf 63 (AST/SGOT) Alanine Aminotransferase 22 (ALT/SGPT) Alkaline Phosphatase 579 B-Type Natriuretic Peptide 34 Total Protein 7.5 Albumin 2.0 Test 08/17/16 08/18/16 20:33 04:31 Lactic Acid Level 1.0 1.8 White Blood Count 29.1 Red Blood Count 4.12 Hemoglobin 11.6 Hematocrit 35.5 Mean Corpuscular Volume 86.2 Mean Corpuscular Hemoglobin 28.3 Mean Corpuscular Hemoglobin 32.8 Concent Red Cell Distribution Width 15.2 Platelet Count 481 Mean Platelet Volume 8.1 Neutrophils (%) (Auto) 97.4 Lymphocytes (%) (Auto) 1.8 Monocytes (%) (Auto) 0.8 Eosinophils (%) (Auto) 0.0 Basophils (%) (Auto) 0.0 Neutrophils # (Auto) 28.3 Lymphocytes # (Auto) 0.5 Monocytes # (Auto) 0.2 Eosinophils # (Auto) 0.0 Basophils # (Auto) 0.0 CBC Comment DIFF FINAL Differential Comment Sodium Level 129 Potassium Level 3.8 Chloride Level 91 Carbon Dioxide Level 28.6 Anion Gap 9 Blood Urea Nitrogen 12 Creatinine 0.67 Estimat Glomerular Filtration 91 Rate Random Glucose 198 Calcium Level 8.3 Lipase 178 Date/Time Procedure Status Source Growth 08/17/16 19:10 Aerobic Blood Culture Received Blood Peripheral Pending 08/17/16 19:10 Anaerobic Blood Culture Received Blood Peripheral Pending 08/17/16 18:53 Urine Culture Received Urine Catheterized Urine Pending 08/16/16 10:50 Gram Stain - Final Resulted Fluid Peritoneal Fluid 08/16/16 10:50 Body Fluid Culture - Preliminary Resulted Fluid Peritoneal Fluid NO GROWTH IN 48 HOURS. Imaging Last Impressions Chest X-Ray 08/17/16 0000 Signed Impressions: Service Date/Time: Wednesday, August 17, 2016 17:57 - CONCLUSION: Scattered airspace disease could be layering pleural effusions greater on the left. Pulmonary edema cannot be excluded. Grady Wilson MD Cyst Biopsy Asp-Paracentesis US 4/24/17 0000 Signed Impressions: Service Date/Time: Tuesday, August 16, 2016 09:24 - CONCLUSION: Uncomplicated ultrasound guided paracentesis. Grady Wilson MD Pelvis Ultrasound 08/14/16 Signed Impressions: Service Date/Time: Sunday, August 14, 2016 22:18 - CONCLUSION: 1. Moderate amount of ascites within the pelvis. 2. Lack of visualization of both ovaries. 3. No discrete mass observed. Bert Nunes Jr., MD Chest CT 08/14/16 Signed Impressions: Service Date/Time: Monday, August 15, 2016 07:53 - CONCLUSION: Bilateral mild pleural effusions being greater on the right. Fadi Cordova MD Hepatobiliary Scan Nuclear Medicine 08/09/16 Signed Impressions: Service Date/Time: Tuesday, August 09, 2016 20:50 - CONCLUSION: Nonvisualization of the gallbladder however the patient does have a stent in place. I reviewed the CT scan from the same day which failed to demonstrate any obvious gallbladder wall thickening. Delayed images of the gallbladder will be performed. Matt Tovar MD ADDENDUM: COMPARISON: BILIARY SCAN (HIDA), July 30, 2016, 13:41. A delayed image in anterior and right lateral projection was performed at 16 hours. There is no activity seen within the lumen of gallbladder. Since the patient has an indwelling biliary stent, absence of gallbladder visualization is nonpredictive with respect to cystic duct obstruction. Bert Brandon MD Abdomen/Pelvis CT 08/09/16 Signed Impressions: Service Date/Time: Tuesday, August 09, 2016 17:46 - CONCLUSION: 1. Silastic biliary stent now present and appears appropriately positioned. Decreased intrahepatic biliary distention, now mild. No pancreatitis or other acute complication demonstrated. 2. Increased ascites, moderate. Also mild to moderate body wall edema/anasarca developing. 3. Mild enteritis/colitis possible versus reactive wall thickening from the ascites. In any event, no obstruction demonstrated. Fadi Yin MD Physical Exam HEENT: Normocephalic; atraumatic; no jaundice. CHEST: CTA. CARDIAC: ST ABDOMEN: +Bs, soft, distended, mild RUQ/epigastric tenderness, ascites EXTREMITIES: Mild BLE, edema. SKIN: Normal; no rash; no jaundice. 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 (LoweryElena Galiciajoshua ALVARES) Assessment and Plan Plan ASSESSMENT: - Suspected malignant ascites. AFP 2.1, CEA 1.1, Ca19-9 14.4, Ca 125 338. S/P Cyst Biopsy Asp-Paracentesis US (08/11/16)----> Uncomplicated ultrasound guided paracentesis with 5000cc of fluid removed. 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 This is suspicious for malignant ascites, but no obvious primary source at this time. S/P Pelvix US and Chest CT- Bilateral mild pleural effusions, greater on the right, moderate amount of ascites within the pelivs, but no obvious mass detected. S/P rpt. paracentesis (08/16) with 30cc removed for diagnostic purposes, cytology pending. Cx no growth x 48 hours. S/P EUS (08/18)-----> Unremarkable endoscopic ultrasound. Spironolactone and Lasix. Oncology following. - Abdominal pain, Nausea, Decreased appetite, Early Satiety. Pt was recently hospitalized for high grade CBD stricture and had ERCP with brushings and stent placement on 07/31/16 and was discharged on 08/03. She reports that her pain did improve at discharge, but never completely went away and it worsened with fevers/chills about 3 days ago. She is not able to describe this, but it does seem to be more diffuse. Abdomen/Pelvis CT (08/09/16) ----> 1. Silastic biliary stent now present and appears appropriately positioned. Decreased intrahepatic biliary distention, now mild. No pancreatitis or other acute complication demonstrated. 2. Increased ascites, moderate. Also mild to moderate body wall edema/anasarca developing. 3. Mild enteritis/colitis possible versus reactive wall thickening from the ascites. In any event, no obstruction demonstrated. HIDA (08/09/16)----> Nonvisualization of the gallbladder however the patient does have a stent in place. I reviewed the CT scan from the same day which failed to demonstrate any obvious gallbladder wall thickening. Delayed images of the gallbladder will be performed. 13:41: A delayed image in anterior and right lateral projection was performed at 16 hours. There is no activity seen within the lumen of gallbladder. Since the patient has an indwelling biliary stent, absence of gallbladder visualization is non- predictive with respect to cystic duct obstruction. Of note, her LFTs have been trending down since her stent placement. GS following, does not feel she is a candidate to have cholecystectomy. Continues to have decreased appetite, early satiety. Has epigastric pain after eating, but no nausea/vomiting at this time. - Leukocytosis. WBC 29.1. BCx no growth 5 days (08/09). Rpt BCx pending. Urine cx pending. Peritoneal fluid no growth 48/72 hours. CDiff negative. - High grade CBD stricture. S/P ERCP with brushings/stent placement (07/31/16)---- > intra hepatic duct dilatation, s/p brushings, s/p stent placement. Pathology revealed rare atypical cells present in the background of numerous glandular epithelial cells, malignancy cannot be excluded. LFTs have been trending down since stent placement. AFP during last hospitalization was 2.4. Ca19-9 10.7 , CEA 1.2, Ca 125 338.4. - ? Underlying liver disease, ?Cirrhosis. Hepatitis panel negative. ARAMIS negative. AMA < 20.0, ASMA negative, AFP 2.1, Iron saturation 27.9, Ferritin 41, Ceruloplasmin 36, Alpha 1 Antitrypsin 191. - Resp. Insufficiency. Tx to unit overnight for respiratory issues, she reports this is better. On N/C. Nebs, steroids, Cefepime PLAN: - 2 gram sodium diet - Cont. Spironolactone and Lasix - Abx per [facility]- Cefepime, Flagyl - Daily weights - Strict I&Os - Cont. PPI - Monitor labs - CCM following - Oncology following - Palliative care following - Supportive care - ? Rpt. bx of CBD stricture by IR - Further recommendations as the case develops - Pt seen and examined by Dr. Samaniego and myself and this note is written on his behalf ADDENDUM: Spoke with Dr. Raman, does not feel that he will be able to get biopsy of CBD stricture secondary to her biliary system being decompressed and ascites. (Elena Lowery) Physician Comments Patient seen and examined Agree with above Continue with current supportive care Monitor labs Further plans as per surgical oncology and the oncology service as the repeat paracentesis cytology again reveals a malignancy Not much to add from a GI standpoint we will sign off (Preet Samaniego MD ) Elena Lowery Aug 18, 2016 07:56 Preet Samaniego MD Aug 18, 2016 21:31
[2016-08-18] MEDS: METOPROLOL TARTRATE 25 MG TAB PO SCH ×2 (09:40→20:29)
[2016-08-18] MEDS: PANTOPRAZOLE SOD 40 MG DELAYED RELEASE TAB PO SCH (09:40)
[2016-08-18] MEDS: SPIRONOLACTONE 25 MG TAB PO SCH ×2 (09:41→17:41)
[2016-08-18] MEDS: FUROSEMIDE 20 MG TAB PO SCH ×2 (09:41→17:41)
[2016-08-18] MEDS: SODIUM CHLORIDE 0.9% FLUSH 10 ML FLUSH IV FLUSH SCH ×2 (09:42→20:29)
[2016-08-18] MEDS: CEFEPIME INJ 2,000 MG in SODIUM CHLORIDE 0.9% INJ 100 ML IV SCH ×2 (09:42→22:01)
--- NOTE | 2016-08-18 11:03 | HHI.CCPN ---
Subjective Remarks/Hospital Course 08/17 56 y/o presented one week ago with vague abdominal pain. Upper endoscopy today with ERCP. No with Temp 103, P 146, SBP 200, SOB, no chest pain, no abdominal pain. Now with WBC 21,000. Clearly septic. I will hold lasix tonight ( despite ascites and pleural effusions) and treat as sepsis. 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 Primary mass unknown 08/18: Resting in bed on nasal cannula 3 L. Breathing feels better. Denies any nausea. Has minimal abdominal pain off and on. Objective Vital Signs Date Time Temp Pulse Resp B/P Pulse Ox O2 Delivery O2 Flow Rate FiO2 08/18/16 08:46 93 Nasal Cannula 3.00 08/18/16 04:00 98 08/18/16 04:00 98.6 20 127/67 08/17/16 22:31 50 Intake and Output 08/17/16 08/17/16 08/18/16 08:00 16:00 00:00 Intake Total 440 ml 680 ml Output Total 125 ml Balance 440 ml 555 ml Result Diagram: 08/18/16 0431 08/18/16 0431 Other Results Laboratory Tests Test 08/17/16 08/17/16 08/17/16 08/17/16 18:00 18:20 18:53 19:10 Nasal Screen MRSA (PCR) MRSA NOT DETECTED Blood Gas Puncture Site RT RADIAL Blood Gas Patient Temperature 98.6 Blood Gas HCO3 26 mmol/L Blood Gas Base Excess 2.5 mmol/L Blood Gas Oxygen Saturation 94 % Arterial Blood pH 7.50 Arterial Blood Partial 33 mmHg Pressure CO2 Arterial Blood Partial 80 mmHg Pressure O2 Arterial Blood Oxygen Content 16.8 Vol % Arterial Blood 1.3 % Carboxyhemoglobin Arterial Blood Methemoglobin 1.3 % Blood Gas Hemoglobin 12.7 G/DL Oxygen Delivery Device Non-Rebreathing Mask Blood Gas Liter Flow 15 L/M Urine Color YELLOW Urine Turbidity HAZY Urine pH 6.5 Urine Specific [place] 1.015 Urine Protein 30 mg/dL Urine Glucose (UA) NEG mg/dL Urine Ketones 10 mg/dL Urine Occult Blood SMALL Urine Nitrite NEG Urine Bilirubin NEG Urine Urobilinogen LESS THAN 2.0 MG/DL Urine Leukocyte Esterase NEG Urine RBC 12 /hpf Urine WBC 5 /hpf Urine Squamous Epithelial 4 /hpf Cells Urine Transitional Epithelial <1 /hpf Cells Urine Bacteria FEW /hpf Urine Mucus FEW /lpf Microscopic Urinalysis Comment CATH-CULTURE IND White Blood Count 21.2 TH/MM3 Red Blood Count 4.32 MIL/MM3 Hemoglobin 12.6 GM/DL Hematocrit 36.9 % Mean Corpuscular Volume 85.5 FL Mean Corpuscular Hemoglobin 29.1 PG Mean Corpuscular Hemoglobin 34.0 % Concent Red Cell Distribution Width 15.3 % Platelet Count 591 TH/MM3 Mean Platelet Volume 7.9 FL Neutrophils (%) (Auto) 94.2 % Lymphocytes (%) (Auto) 2.0 % Monocytes (%) (Auto) 3.5 % Eosinophils (%) (Auto) 0.1 % Basophils (%) (Auto) 0.2 % Neutrophils # (Auto) 19.9 TH/MM3 Lymphocytes # (Auto) 0.4 TH/MM3 Monocytes # (Auto) 0.7 TH/MM3 Eosinophils # (Auto) 0.0 TH/MM3 Basophils # (Auto) 0.0 TH/MM3 CBC Comment DIFF FINAL Differential Comment Sodium Level 129 MEQ/L Potassium Level 4.2 MEQ/L Chloride Level 91 MEQ/L Carbon Dioxide Level 23.7 MEQ/L Anion Gap 14 MEQ/L Blood Urea Nitrogen 9 MG/DL Creatinine 0.61 MG/DL Estimat Glomerular Filtration 101 ML/MIN Rate Random Glucose 109 MG/DL Calcium Level 7.9 MG/DL Total Bilirubin 1.1 MG/DL Aspartate Amino Transf 63 U/L (AST/SGOT) Alanine Aminotransferase 22 U/L (ALT/SGPT) Alkaline Phosphatase 579 U/L B-Type Natriuretic Peptide 34 PG/ML Total Protein 7.5 GM/DL Albumin 2.0 GM/DL Test 08/17/16 08/18/16 20:33 04:31 Lactic Acid Level 1.0 mmol/L 1.8 mmol/L White Blood Count 29.1 TH/MM3 Red Blood Count 4.12 MIL/MM3 Hemoglobin 11.6 GM/DL Hematocrit 35.5 % Mean Corpuscular Volume 86.2 FL Mean Corpuscular Hemoglobin 28.3 PG Mean Corpuscular Hemoglobin 32.8 % Concent Red Cell Distribution Width 15.2 % Platelet Count 481 TH/MM3 Mean Platelet Volume 8.1 FL Neutrophils (%) (Auto) 97.4 % Lymphocytes (%) (Auto) 1.8 % Monocytes (%) (Auto) 0.8 % Eosinophils (%) (Auto) 0.0 % Basophils (%) (Auto) 0.0 % Neutrophils # (Auto) 28.3 TH/MM3 Lymphocytes # (Auto) 0.5 TH/MM3 Monocytes # (Auto) 0.2 TH/MM3 Eosinophils # (Auto) 0.0 TH/MM3 Basophils # (Auto) 0.0 TH/MM3 CBC Comment DIFF FINAL Differential Comment Sodium Level 129 MEQ/L Potassium Level 3.8 MEQ/L Chloride Level 91 MEQ/L Carbon Dioxide Level 28.6 MEQ/L Anion Gap 9 MEQ/L Blood Urea Nitrogen 12 MG/DL Creatinine 0.67 MG/DL Estimat Glomerular Filtration 91 ML/MIN Rate Random Glucose 198 MG/DL Calcium Level 8.3 MG/DL Lipase 178 U/L Imaging Last Impressions Chest X-Ray 08/17/16 0000 Signed Impressions: Service Date/Time: Wednesday, August 17, 2016 17:57 - CONCLUSION: Scattered airspace disease could be layering pleural effusions greater on the left. Pulmonary edema cannot be excluded. Grady Wilson MD Cyst Biopsy Asp-Paracentesis US 08/16/16 0000 Signed Impressions: Service Date/Time: Tuesday, August 16, 2016 09:24 - CONCLUSION: Uncomplicated ultrasound guided paracentesis. Grady Wilson MD Pelvis Ultrasound 08/14/16 0000 Signed Impressions: Service Date/Time: Sunday, August 14, 2016 22:18 - CONCLUSION: 1. Moderate amount of ascites within the pelvis. 2. Lack of visualization of both ovaries. 3. No discrete mass observed. Bert Nunes Jr., MD Chest CT 08/14/16 0000 Signed Impressions: Service Date/Time: Monday, August 15, 2016 07:53 - CONCLUSION: Bilateral mild pleural effusions being greater on the right. Fadi Cordova MD Hepatobiliary Scan Nuclear Medicine 08/09/16 0000 Signed Impressions: Service Date/Time: Tuesday, August 09, 2016 20:50 - CONCLUSION: Nonvisualization of the gallbladder however the patient does have a stent in place. I reviewed the CT scan from the same day which failed to demonstrate any obvious gallbladder wall thickening. Delayed images of the gallbladder will be performed. Matt Tovar MD ADDENDUM: COMPARISON: BILIARY SCAN ([facility]), July 30, 2016, 13:41. A delayed image in anterior and right lateral projection was performed at 16 hours. There is no activity seen within the lumen of gallbladder. Since the patient has an indwelling biliary stent, absence of gallbladder visualization is nonpredictive with respect to cystic duct obstruction. Bert Brandon MD Abdomen/Pelvis CT 08/09/16 0000 Signed Impressions: Service Date/Time: Tuesday, August 09, 2016 17:46 - CONCLUSION: 1. Silastic biliary stent now present and appears appropriately positioned. Decreased intrahepatic biliary distention, now mild. No pancreatitis or other acute complication demonstrated. 2. Increased ascites, moderate. Also mild to moderate body wall edema/anasarca developing. 3. Mild enteritis/colitis possible versus reactive wall thickening from the ascites. In any event, no obstruction demonstrated. Fadi Yin MD Objective Remarks Head: Normal. Neck: Supple, airway patent. Lungs: Rhonchi left, good kelly air movement. Heart: Clear tones, NL S1S2, No JVD Abdomen: Soft, tender RUQ, no peritoneal irritation, BS few. Extremities: Warm, flushed. Neuro: Awake alert oriented 3(spoke to her with her family member translating) . Does not speak Ivorian. Moves 4 limbs, VITO. A/P Assessment and Plan Assessment: 1. Hypoxemic respiratory failure. 2. Severe Sepsis. 3. 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 4. CBD stricture - stented 7 days ago. Plan: Plan: Respiratory failure with hypoxia -Occurred after ERCP/EUS - had some wheezing so started on Solu-Medrol and nebulizers. - Symptomatic ascites: Concern for malignancy. No hx of Alcohol use or cirrhosis. Imaging reviewed: CT abd showed Silastic biliary stent now present and appears appropriately positioned; Decreased intrahepatic biliary distention, now mild; Increased ascites, moderate; mild to moderate body wall edema/anasarca developing; Mild enteritis/colitis possible versus reactive wall thickening from the ascites. HIDA 08/10 shows nonvisualization of the gallbladder. -Consulted gastroenterology, per Dr. Whitehead, -Surgical oncology, Dr. Wylie, consulted. Not a good surgical candidate for cholecystectomy at this time. Symptoms not c/w cholecystitis at this time. -s/p U/S guided abdominal paracentesis 08/11 removed 5L green cloudy fluid, WBC 1320, RBC 897, cytology with features consistent with a non-small cell neoplasm -tumor markers remarkable for CA-125 elevated at 338 -Ascites fluid culture negative. -supportive treatment with pain control and antiemetics prn. Simethicone prn. -Diuresis with Lasix and Aldactone for ascites -Palliative care oncology following. -Patient had repeat paracentesis done on 08/16/2016. -Patient had ERCP/EUS done today on 08/17/2016. Acute Colitis: seen on CT abdomen as above -On IV Cipro/Flagyl for gastroenterology, will follow up with GI regarding diarrhea -diet as tolerated per gastroenterology -Recommending eating small portions to avoid simulating pain. -Restart broad antibiotics Recent High Grade CBD Stricture: s/p ERCP with stent placement 07/31. Pathology revealed rare atypical cells present in the background of numerous glandular epithelial cells, malignancy cannot be excluded. LFTs have been trending down since stent placement. CT abd showed biliary stent appropriately positioned, decreased biliary distention, no pancreatitis. -Gastroenterology on board -Continue to monitor LFTs, stable, follow-up CMP. Sepsis: Continue empiric antibiotics, consult ID for further evaluation Hyponatremia: likely secondary to dehydration -Na 126 upon arrival -s/p IVF -Today decrease. -Most likely secondary to third spacing. Hypokalemia: Secondary to poor by mouth intake. Potassium 3.3. Replaced orally. Repeat 3.6. Magnesium within normal limits. Diarrhea: Check C. difficile, discussed with RN. DVT prophylaxiswith Lovenox Overall impression: This woman is ill with sudden leukocytosis and respiratory distress. She has a new, large left lung infiltrate and hypoxemia. Penicillin allergy complicates care. Malignant cells in ascites further clouds the issue. She presented with colitis, concern for C. diff, but lung infiltrate requires treatment for sepsis. We'll consult and transfer to hospitalist service for further medical management. Transfer out of ICU if she remains on nasal cannula today. Eugene West MD Aug 18, 2016 11:03
--- NOTE | 2016-08-18 11:06 | PD.CONS ---
History of Present Illness Service Infectious disease Consult Requested By Dr Shiv West Reason for Consult Evaluate patient with sepsis Primary Care Physician No Primary Care Physician Diagnoses: History of Present Illness Patient seen and examined. Records reviewed. Patient is a 56-year-old female, presented to the hospital complaining of increasing abdominal pain for about 2 days. 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 She underwent ERCP, and stent placement. She was discharged to home. She came back with increased abdominal pain. She also noted increasing abdominal girth. She has not been able to eat because of early satiety. There was one episode of vomiting. And she has had some back pain. She denies any urinary complaints, or any significant diarrhea. There is been no mention of any fever or chills or sweats. Patient had some elevated LFTs. Her white count was 14,000 on presentation. Urinalysis was unremarkable. Patient underwent CT of the abdomen and pelvis which showed ascites, as well as some finding of mild thickening of the bowel which could be due to colitis or due to her ascites. HIDA scan was done and it was positive. Surgery evaluated the patient and felt that there is no evidence of cholecystitis. GI evaluated the patient. Patient also underwent workup for malignancy. 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 There was no evidence of SBP. Oncology saw the patient, and ordered pelvic ultrasound which did not show any mass, CT of the chest which did not show any masses well. Her CEA 125 has been elevated. Patient was placed on Cipro and Flagyl since admission. Yesterday she underwent endoscopic ultrasound, and after the procedure she became hypoxic, and spiked a temperature of 103. She also started complaining of shortness of breath. Patient currently is in the intensive care unit, and her shortness of breath is a little bit better. She has some mild abdominal pain. She had one liquid stool today and one yesterday. No vomiting. Her chest x-ray showed scattered diffuse infiltrate on the left lung. Highest temperature yesterday was 103. Her WBC went up to 21,000. Currently patient is afebrile. Infectious disease consultation has been requested to evaluate the patient Review of Systems Constitutional: COMPLAINS OF: Fever, Chills Eyes: COMPLAINS OF: Eye pain Ears, nose, mouth, throat: COMPLAINS OF: Nasal discharge, Throat pain, Ear Pain , Sinus Pain, Odynophagia Respiratory: COMPLAINS OF: Sputum production, Shortness of breath, DENIES: Cough Cardiovascular: COMPLAINS OF: Chest pain, DENIES: Palpitations, Syncope Gastrointestinal: COMPLAINS OF: Abdominal pain, Diarrhea, DENIES: Nausea, Vomiting, Difficulty Swallowing Musculoskeletal: DENIES: Joint pain, Joint Swelling, Back pain Integumentary: DENIES: Rash Immunologic/allergic: DENIES: Urticaria Neurologic: DENIES: Headache Psychiatric: DENIES: Confusion, Hallucinations Past Family Social History Allergies: Coded Allergies: Penicillin (Verified Allergy, Unknown, 08/09/16) Past Medical History Recent diagnosis of high-grade common bile duct stricture, status post stent placement Diagnosed to have ascites also during her last admission Past Surgical History ERCP, and stent placement Paracenteses Active Ordered Medications Albuterol Cefepime Benadryl when necessary Lasix Dilaudid when necessary Solu-Medrol Lopressor Flagyl Protonix Simethicone Aldactone Social History Originally from [place] No smoking No alcohol abuse No drugs Lives in [place] Physical Exam Vital Signs Vital Signs Date Time Temp Pulse Resp B/P Pulse Ox O2 Delivery O2 Flow Rate FiO2 08/18/16 08:46 93 Nasal Cannula 3.00 08/18/16 08:00 97.9 93 24 151/88 96 08/18/16 07:15 90 08/18/16 07:00 95 Nasal Cannula 3.00 08/18/16 04:00 98 08/18/16 04:00 98.6 98 20 127/67 95 08/18/16 03:26 95 Nasal Cannula 3.00 08/18/16 00:00 99.0 86 20 122/68 96 08/18/16 00:00 86 08/17/16 22:31 96 Venturi Mask 50 08/17/16 22:30 100 Venturi Mask 50 08/17/16 22:00 100 08/17/16 20:10 99 Non-Rebreather 15.00 08/17/16 20:00 101.1 129 27 134/71 99 08/17/16 20:00 99 Non-Rebreather 08/17/16 20:00 129 08/17/16 18:45 95 Non-Rebreather 08/17/16 18:00 103.0 149 36 142/80 97 08/17/16 17:45 103.0 08/17/16 17:41 99.9 139 28 201/102 93 08/17/16 17:41 93 Non-Rebreather 08/17/16 17:30 94 15.00 08/17/16 17:30 98.7 136 24 184/105 78 08/17/16 17:30 94 Non-Rebreather 15.00 08/17/16 16:43 98 18 163/104 93 08/17/16 16:00 98.7 93 18 142/67 92 08/17/16 15:15 99 26 156/85 97 Nasal Cannula 3 08/17/16 15:00 105 25 152/86 98 Nasal Cannula 3 08/17/16 14:55 98.1 110 27 136/87 95 Nasal Cannula 3 08/17/16 13:21 98.2 79 18 144/86 100 08/17/16 12:45 98.2 88 16 109/62 97 08/17/16 11:25 97.3 85 18 122/81 94 08/17/16 11:17 98 Physical Exam GENERAL: This is a well-nourished, well-developed female, awake and alert, not toxic appearing, and not in any respiratory distress at the time my exam. SKIN: Warm and dry. No generalized rash or ecchymoses. HEAD: Atraumatic. Normocephalic. No temporal or scalp tenderness. EYES: [place] conjunctivae, no petechia or hemorrhage. Pupils equal round and reactive. Extraocular motions intact. No scleral icterus. No injection or drainage. ENT: Nose without bleeding, or purulent drainage. Moist oral mucosa. No oral thrush. Throat without erythema, or exudate. Uvula midline. Airway patent. NECK: Trachea midline. No JVD or lymphadenopathy. Supple, nontender, no meningeal signs. CARDIOVASCULAR: Regular rate and rhythm without gallops, or rubs. Has a soft murmur heard best in the left sternal border, possibly a flow murmur. RESPIRATORY: Breath sounds equal bilaterally. No wheezes, rales, or rhonchi. Has decreased breath sounds on the left side. GASTROINTESTINAL: Abdomen soft, mildly distended, with mild tenderness especially in the epigastric area. No guarding or rebound. Her present and normoactive. No hepato-splenomegaly, or palpable masses. MUSCULOSKELETAL: Extremities without clubbing, cyanosis, or edema. No joint tenderness, effusion, or edema noted. No calf tenderness. NEUROLOGICAL: Awake and alert. Cranial nerves II through XII intact. Motor and sensory grossly within normal limits. Five out of 5 muscle strength in all muscle groups. Normal speech. PSYCH: Normal affect, calm and cooperative LINE: PIV with no evidence of infection : Matthew in place, urine looks clear Laboratory Laboratory Tests Test 08/17/16 08/17/16 08/17/16 08/17/16 18:00 18:20 18:53 19:10 Nasal Screen MRSA (PCR) MRSA NOT DETECTED Blood Gas Puncture Site RT RADIAL Blood Gas Patient Temperature 98.6 Blood Gas HCO3 26 Blood Gas Base Excess 2.5 Blood Gas Oxygen Saturation 94 Arterial Blood pH 7.50 Arterial Blood Partial 33 Pressure CO2 Arterial Blood Partial 80 Pressure O2 Arterial Blood Oxygen Content 16.8 Arterial Blood 1.3 Carboxyhemoglobin Arterial Blood Methemoglobin 1.3 Blood Gas Hemoglobin 12.7 Oxygen Delivery Device Non-Rebreathing Mask Blood Gas Liter Flow 15 Urine Color YELLOW Urine Turbidity HAZY Urine pH 6.5 Urine Specific [place] 1.015 Urine Protein 30 Urine Glucose (UA) NEG Urine Ketones 10 Urine Occult Blood SMALL Urine Nitrite NEG Urine Bilirubin NEG Urine Urobilinogen LESS THAN 2.0 Urine Leukocyte Esterase NEG Urine RBC 12 Urine WBC 5 Urine Squamous Epithelial 4 Cells Urine Transitional Epithelial <1 Cells Urine Bacteria FEW Urine Mucus FEW Microscopic Urinalysis Comment CATH-CULTURE IND White Blood Count 21.2 Red Blood Count 4.32 Hemoglobin 12.6 Hematocrit 36.9 Mean Corpuscular Volume 85.5 Mean Corpuscular Hemoglobin 29.1 Mean Corpuscular Hemoglobin 34.0 Concent Red Cell Distribution Width 15.3 Platelet Count 591 Mean Platelet Volume 7.9 Neutrophils (%) (Auto) 94.2 Lymphocytes (%) (Auto) 2.0 Monocytes (%) (Auto) 3.5 Eosinophils (%) (Auto) 0.1 Basophils (%) (Auto) 0.2 Neutrophils # (Auto) 19.9 Lymphocytes # (Auto) 0.4 Monocytes # (Auto) 0.7 Eosinophils # (Auto) 0.0 Basophils # (Auto) 0.0 CBC Comment DIFF FINAL Differential Comment Sodium Level 129 Potassium Level 4.2 Chloride Level 91 Carbon Dioxide Level 23.7 Anion Gap 14 Blood Urea Nitrogen 9 Creatinine 0.61 Estimat Glomerular Filtration 101 Rate Random Glucose 109 Calcium Level 7.9 Total Bilirubin 1.1 Aspartate Amino Transf 63 (AST/SGOT) Alanine Aminotransferase 22 (ALT/SGPT) Alkaline Phosphatase 579 B-Type Natriuretic Peptide 34 Total Protein 7.5 Albumin 2.0 Test 08/17/16 08/18/16 20:33 04:31 Lactic Acid Level 1.0 1.8 White Blood Count 29.1 Red Blood Count 4.12 Hemoglobin 11.6 Hematocrit 35.5 Mean Corpuscular Volume 86.2 Mean Corpuscular Hemoglobin 28.3 Mean Corpuscular Hemoglobin 32.8 Concent Red Cell Distribution Width 15.2 Platelet Count 481 Mean Platelet Volume 8.1 Neutrophils (%) (Auto) 97.4 Lymphocytes (%) (Auto) 1.8 Monocytes (%) (Auto) 0.8 Eosinophils (%) (Auto) 0.0 Basophils (%) (Auto) 0.0 Neutrophils # (Auto) 28.3 Lymphocytes # (Auto) 0.5 Monocytes # (Auto) 0.2 Eosinophils # (Auto) 0.0 Basophils # (Auto) 0.0 CBC Comment DIFF FINAL Differential Comment Sodium Level 129 Potassium Level 3.8 Chloride Level 91 Carbon Dioxide Level 28.6 Anion Gap 9 Blood Urea Nitrogen 12 Creatinine 0.67 Estimat Glomerular Filtration 91 Rate Random Glucose 198 Calcium Level 8.3 Lipase 178 Date/Time Procedure Status Source Growth 08/17/16 19:10 Aerobic Blood Culture Received Blood Peripheral Pending 08/17/16 19:10 Anaerobic Blood Culture Received Blood Peripheral Pending 08/17/16 18:53 Urine Culture Received Urine Catheterized Urine Pending 08/16/16 10:50 Gram Stain - Final Resulted Fluid Peritoneal Fluid 08/16/16 10:50 Body Fluid Culture - Preliminary Resulted Fluid Peritoneal Fluid NO GROWTH IN 48 HOURS. Result Diagram: 08/18/16 0431 08/18/16 0431 Imaging RADIOLOGY STUDIES/FILMS REVIEWED Chest X-Ray 08/17/16 0000 Signed Impressions: Service Date/Time: Wednesday, August 17, 2016 17:57 - CONCLUSION: Scattered airspace disease could be layering pleural effusions greater on the left. Pulmonary edema cannot be excluded. Grady Wilson MD Cyst Biopsy Asp-Paracentesis US 4/24/17 0000 Signed Impressions: Service Date/Time: Tuesday, August 16, 2016 09:24 - CONCLUSION: Uncomplicated ultrasound guided paracentesis. Grady Wilson MD Pelvis Ultrasound 08/14/16 Signed Impressions: Service Date/Time: Sunday, August 14, 2016 22:18 - CONCLUSION: 1. Moderate amount of ascites within the pelvis. 2. Lack of visualization of both ovaries. 3. No discrete mass observed. Bert Nunes Jr., MD Chest CT 08/14/16 Signed Impressions: Service Date/Time: Monday, August 15, 2016 07:53 - CONCLUSION: Bilateral mild pleural effusions being greater on the right. Fadi Cordova MD Hepatobiliary Scan Nuclear Medicine 08/09/16 Signed Impressions: Service Date/Time: Tuesday, August 09, 2016 20:50 - CONCLUSION: Nonvisualization of the gallbladder however the patient does have a stent in place. I reviewed the CT scan from the same day which failed to demonstrate any obvious gallbladder wall thickening. Delayed images of the gallbladder will be performed. Matt Tovar MD ADDENDUM: COMPARISON: BILIARY SCAN ([facility]), July 30, 2016, 13:41. A delayed image in anterior and right lateral projection was performed at 16 hours. There is no activity seen within the lumen of gallbladder. Since the patient has an indwelling biliary stent, absence of gallbladder visualization is nonpredictive with respect to cystic duct obstruction. Bert Brandon MD Abdomen/Pelvis CT 08/09/16 Signed Impressions: Service Date/Time: Tuesday, August 09, 2016 17:46 - CONCLUSION: 1. Silastic biliary stent now present and appears appropriately positioned. Decreased intrahepatic biliary distention, now mild. No pancreatitis or other acute complication demonstrated. 2. Increased ascites, moderate. Also mild to moderate body wall edema/anasarca developing. 3. Mild enteritis/colitis possible versus reactive wall thickening from the ascites. In any event, no obstruction demonstrated. 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 Allergy to PCN, gets rash RECOMMENDATION Follow C/S Rx empirically for hospital aspiration PNA Continue Cefepime and Flagyl Add Vancomycin Follow CBC Await for new cytology of peritoneal fluid Monitor progress I will follow along with you Thank you for this consultation Kristin Lindo MD Aug 18, 2016 11:06
[2016-08-19] VITALS (13 sets, daily range): BP systolic 131–176; BP diastolic 70–93; PULSE 87–109; RESP 18–24; TEMP 98–99.2; O2SAT 81–94
[2016-08-19] MEDS: metroNIDAZOLE 500 MG INJ 100 ML IV SCH ×5 (00:49→23:34)
[2016-08-19] MEDS: methylPREDNISolone SOD SUCC 125 MG/2 ML VIAL IV PUSH SCH ×5 (00:50→23:36)
[2016-08-19] MEDS: CHLORHEXIDINE GLUCONATE 2 % 1 PACK (2 CLOTHS)(taper/protocol) TOPICAL SCH (04:00)
[2016-08-19] MEDS: RESP: ALBUTEROL 2.5 MG/IPRATROPIUM 0.5 MG NEB (SCH) NEB ×5 (04:00→20:33)
[2016-08-19 05:47] LABS: AUTOMATED NEUTROPHIL # 26.9 TH/MM3 (1.8-7.7); HEMATOCRIT 33.1 % (35.0-46.0); HEMO FLAGS DIFF FINAL; LYMPH % 2.1 % (9.0-44.0); LYMPHOCYTE # 0.6 TH/MM3 (1.0-4.8); MEAN CELL VOLUME 85.7 FL (80.0-100.0); MEAN CORPUSCULAR HEMOGLOBIN 29.1 PG (27.0-34.0); MONO % 1.3 % (0.0-8.0); NEUT % 96.6 % (16.0-70.0); PLATELET COUNT 444 TH/MM3 (150-450); RED BLOOD COUNT 3.86 MIL/MM3 (4.00-5.30); RED CELL DISTRIBUTION WIDTH 15.5 % (11.6-17.2); WHITE BLOOD COUNT 27.8 TH/MM3 (4.0-11.0)
[2016-08-19 06:12] LABS: ALKALINE PHOSPHATASE 390 U/L (45-117); ALT (GPT) 16 U/L (10-53); ANION GAP 9 MEQ/L (5-15); AST (GOT) 21 U/L (15-37); BICARBONATE 30.4 MEQ/L (21.0-32.0); BLOOD UREA NITROGEN 15 MG/DL (7-18); CHLORIDE 93 MEQ/L (98-107); GLOMERULAR FILTRATION RATE 107 ML/MIN (>89); POTASSIUM 3.3 MEQ/L (3.5-5.1); SODIUM (NA) 132 MEQ/L (136-145); TOTAL BILIRUBIN ADULT 0.6 MG/DL (0.2-1.0)
[2016-08-19] MEDS: SPIRONOLACTONE 25 MG TAB PO SCH ×2 (08:29→18:16)
[2016-08-19] MEDS: METOPROLOL TARTRATE 25 MG TAB PO SCH ×2 (08:29→20:07)
[2016-08-19] MEDS: FUROSEMIDE 20 MG TAB PO SCH ×2 (08:29→18:16)
[2016-08-19] MEDS: PANTOPRAZOLE SOD 40 MG DELAYED RELEASE TAB PO SCH (08:29)
[2016-08-19] MEDS: SODIUM CHLORIDE 0.9% FLUSH 10 ML FLUSH IV FLUSH SCH ×2 (08:30→20:07)
[2016-08-19] MEDS ORDERED: POTASSIUM CHLORIDE 25 MEQ EFFERVESCENT TAB PO ONE (09:00)
[2016-08-19] MEDS: CEFEPIME INJ 2,000 MG in SODIUM CHLORIDE 0.9% INJ 100 ML IV SCH ×2 (10:00→22:10)
[2016-08-19] MEDS ORDERED: VANCOMYCIN INJ 1,000 MG in SODIUM CHLOR 0.9% 250 ML INJ 250 ML IV ONE (14:15)
[2016-08-19] MEDS ORDERED: Vancomycin Consult Pharmacy 1 EA OTHER SCH (14:15)
--- NOTE | 2016-08-19 14:17 | HHI.IDPN ---
Subjective Subjective Remarks Notes reviewed Temps better BP ok States she gets epigastric pain when she takes deep breaths On nasal O2 C/S negative so far WBC slightly better 27K from 29K Antibiotics Cefepime Past Medical History Recent diagnosis of high-grade common bile duct stricture, status post stent placement Diagnosed to have ascites also during her last admission Past Surgical History ERCP, and stent placement Paracenteses Allergies: Coded Allergies: Penicillin (Verified Allergy, Unknown, 08/09/16) Objective . Vital Signs Date Time Temp Pulse Resp B/P Pulse Ox O2 Delivery O2 Flow Rate FiO2 08/19/16 12:00 98.7 88 22 147/80 91 08/19/16 10:00 98.1 100 24 142/77 92 08/19/16 08:00 98.1 100 24 142/77 92 08/19/16 07:55 93 Nasal Cannula 3.00 08/19/16 07:15 107 08/19/16 07:00 91 Nasal Cannula 3.00 08/19/16 04:00 98.2 89 22 140/77 94 08/19/16 00:00 98.0 88 20 131/70 93 08/18/16 20:07 95 Nasal Cannula 3.00 08/18/16 20:00 97.9 86 22 134/74 94 08/18/16 19:15 86 08/18/16 19:00 94 Nasal Cannula 3.00 08/18/16 16:00 98.2 91 24 122/67 93 08/18/16 08/18/16 08/19/16 15:00 23:00 07:00 Intake Total 800 ml 500 ml 657 ml Output Total 350 ml 300 ml 350 ml Balance 450 ml 200 ml 307 ml Intake Oral 500 ml 400 ml 240 ml IV Total 300 ml 100 ml 417 ml Output Urine Total 350 ml 300 ml 350 ml # Bowel Movements 2 0 0 . Laboratory Tests Test 08/17/16 08/18/16 08/19/16 19:10 04:31 04:48 White Blood Count 21.2 TH/MM3 29.1 TH/MM3 27.8 TH/MM3 Red Blood Count 4.32 MIL/MM3 4.12 MIL/MM3 3.86 MIL/MM3 Hemoglobin 12.6 GM/DL 11.6 GM/DL 11.2 GM/DL Hematocrit 36.9 % 35.5 % 33.1 % Mean Corpuscular Volume 85.5 FL 86.2 FL 85.7 FL Mean Corpuscular Hemoglobin 29.1 PG 28.3 PG 29.1 PG Mean Corpuscular Hemoglobin 34.0 % 32.8 % 34.0 % Concent Red Cell Distribution Width 15.3 % 15.2 % 15.5 % Platelet Count 591 TH/MM3 481 TH/MM3 444 TH/MM3 Mean Platelet Volume 7.9 FL 8.1 FL 8.4 FL Neutrophils (%) (Auto) 94.2 % 97.4 % 96.6 % Lymphocytes (%) (Auto) 2.0 % 1.8 % 2.1 % Monocytes (%) (Auto) 3.5 % 0.8 % 1.3 % Eosinophils (%) (Auto) 0.1 % 0.0 % 0.0 % Basophils (%) (Auto) 0.2 % 0.0 % 0.0 % Neutrophils # (Auto) 19.9 TH/MM3 28.3 TH/MM3 26.9 TH/MM3 Lymphocytes # (Auto) 0.4 TH/MM3 0.5 TH/MM3 0.6 TH/MM3 Monocytes # (Auto) 0.7 TH/MM3 0.2 TH/MM3 0.4 TH/MM3 Eosinophils # (Auto) 0.0 TH/MM3 0.0 TH/MM3 0.0 TH/MM3 Basophils # (Auto) 0.0 TH/MM3 0.0 TH/MM3 0.0 TH/MM3 CBC Comment DIFF FINAL DIFF FINAL DIFF FINAL Differential Comment Laboratory Tests Test 08/17/16 08/17/16 08/18/16 08/19/16 19:10 20:33 04:31 04:48 Sodium Level 129 MEQ/L 129 MEQ/L 132 MEQ/L Potassium Level 4.2 MEQ/L 3.8 MEQ/L 3.3 MEQ/L Chloride Level 91 MEQ/L 91 MEQ/L 93 MEQ/L Carbon Dioxide Level 23.7 MEQ/L 28.6 MEQ/L 30.4 MEQ/L Anion Gap 14 MEQ/L 9 MEQ/L 9 MEQ/L Blood Urea Nitrogen 9 MG/DL 12 MG/DL 15 MG/DL Creatinine 0.61 MG/DL 0.67 MG/DL 0.58 MG/DL Estimat Glomerular Filtration 101 ML/MIN 91 ML/MIN 107 ML/MIN Rate Random Glucose 109 MG/DL 198 MG/DL 178 MG/DL Calcium Level 7.9 MG/DL 8.3 MG/DL 8.4 MG/DL Total Bilirubin 1.1 MG/DL 0.6 MG/DL Aspartate Amino Transf 63 U/L 21 U/L (AST/SGOT) Alanine Aminotransferase 22 U/L 16 U/L (ALT/SGPT) Alkaline Phosphatase 579 U/L 390 U/L B-Type Natriuretic Peptide 34 PG/ML Total Protein 7.5 GM/DL 7.9 GM/DL Albumin 2.0 GM/DL 2.2 GM/DL Lactic Acid Level 1.0 mmol/L 1.8 mmol/L Lipase 178 U/L Microbiology Date/Time Procedure Status Source Growth 08/17/16 18:53 Urine Culture - Final Complete Urine Catheterized Urine NO GROWTH IN 48 HOURS. 08/17/16 19:00 Aerobic Blood Culture - Preliminary Resulted Blood Peripheral NO GROWTH IN 2 DAYS 08/17/16 19:00 Anaerobic Blood Culture - Preliminary Resulted Blood Peripheral NO GROWTH IN 2 DAYS 08/17/16 19:10 Aerobic Blood Culture - Preliminary Resulted Blood Peripheral NO GROWTH IN 2 DAYS 08/17/16 19:10 Anaerobic Blood Culture - Preliminary Resulted Blood Peripheral NO GROWTH IN 2 DAYS Imaging Chest X-Ray 08/17/16 0000 Signed Impressions: Service Date/Time: Wednesday, August 17, 2016 17:57 - CONCLUSION: Scattered airspace disease could be layering pleural effusions greater on the left. Pulmonary edema cannot be excluded. Grady Wilson MD Cyst Biopsy Asp-Paracentesis US 08/16/16 0000 Signed Impressions: Service Date/Time: Tuesday, August 16, 2016 09:24 - CONCLUSION: Uncomplicated ultrasound guided paracentesis. Grady Wilson MD Pelvis Ultrasound 08/14/16 0000 Signed Impressions: Service Date/Time: Sunday, August 14, 2016 22:18 - CONCLUSION: 1. Moderate amount of ascites within the pelvis. 2. Lack of visualization of both ovaries. 3. No discrete mass observed. Bert Nunes Jr., MD Chest CT 08/14/16 0000 Signed Impressions: Service Date/Time: Monday, August 15, 2016 07:53 - CONCLUSION: Bilateral mild pleural effusions being greater on the right. Fadi Cordova MD Hepatobiliary Scan Nuclear Medicine 08/09/16 0000 Signed Impressions: Service Date/Time: Tuesday, August 09, 2016 20:50 - CONCLUSION: Nonvisualization of the gallbladder however the patient does have a stent in place. I reviewed the CT scan from the same day which failed to demonstrate any obvious gallbladder wall thickening. Delayed images of the gallbladder will be performed. Matt Tovar MD ADDENDUM: COMPARISON: BILIARY SCAN ([facility]), July 30, 2016, 13:41. A delayed image in anterior and right lateral projection was performed at 16 hours. There is no activity seen within the lumen of gallbladder. Since the patient has an indwelling biliary stent, absence of gallbladder visualization is nonpredictive with respect to cystic duct obstruction. Bert Brandon MD Abdomen/Pelvis CT 08/09/16 0000 Signed Impressions: Service Date/Time: Tuesday, August 09, 2016 17:46 - CONCLUSION: 1. Silastic biliary stent now present and appears appropriately positioned. Decreased intrahepatic biliary distention, now mild. No pancreatitis or other acute complication demonstrated. 2. Increased ascites, moderate. Also mild to moderate body wall edema/anasarca developing. 3. Mild enteritis/colitis possible versus reactive wall thickening from the ascites. In any event, no obstruction demonstrated. Fadi Yin MD Physical Exam GENERAL: awake and alert, not in any respiratory distress SKIN: Warm and dry. No generalized rash or ecchymoses. HEENT: [place] conjunctivae, no petechia or hemorrhage. No scleral icterus. Moist oral mucosa. No oral thrush. NECK: Trachea midline. No JVD or lymphadenopathy. Supple, nontender, no meningeal signs. CARDIOVASCULAR: Regular rate and rhythm without gallops, or rubs. Has a soft murmur heard best in the left sternal border, possibly a flow murmur. RESPIRATORY: Breath sounds equal bilaterally. No wheezes, rales, or rhonchi. Has decreased breath sounds on the left side and R base GASTROINTESTINAL: Abdomen soft, with tenderness in the epigastric area. No guarding or rebound. Her present and normoactive. No hepato-splenomegaly, or palpable masses. MUSCULOSKELETAL: Extremities without clubbing, cyanosis, or edema. No joint tenderness, effusion, or edema noted. No calf tenderness. 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 Allergy to PCN, gets rash RECOMMENDATION Follow C/S Continue Cefepime and Flagyl Add Vancomycin Follow CBC Monitor progress CXR Kristin Lindo MD Aug 19, 2016 14:17
[2016-08-19] MEDS: VANCOMYCIN INJ 1,250 MG in SODIUM CHLORID 0.9% 500 ML INJ 500 ML IV SCH (14:52)
--- NOTE | 2016-08-19 15:18 | HHI.PR ---
Subjective Subjective Notes Reports epigastric pain and frequent diarrhea Objective Vitals/I&O Vital Signs Date Time Temp Pulse Resp B/P Pulse Ox O2 Delivery O2 Flow Rate FiO2 08/19/16 12:00 98.7 88 22 147/80 91 08/19/16 07:55 Nasal Cannula 3.00 08/17/16 22:31 50 Labs Laboratory Tests Test 08/19/16 04:48 White Blood Count 27.8 Red Blood Count 3.86 Hemoglobin 11.2 Hematocrit 33.1 Mean Corpuscular Volume 85.7 Mean Corpuscular Hemoglobin 29.1 Mean Corpuscular Hemoglobin 34.0 Concent Red Cell Distribution Width 15.5 Platelet Count 444 Mean Platelet Volume 8.4 Neutrophils (%) (Auto) 96.6 Lymphocytes (%) (Auto) 2.1 Monocytes (%) (Auto) 1.3 Eosinophils (%) (Auto) 0.0 Basophils (%) (Auto) 0.0 Neutrophils # (Auto) 26.9 Lymphocytes # (Auto) 0.6 Monocytes # (Auto) 0.4 Eosinophils # (Auto) 0.0 Basophils # (Auto) 0.0 CBC Comment DIFF FINAL Differential Comment Sodium Level 132 Potassium Level 3.3 Chloride Level 93 Carbon Dioxide Level 30.4 Anion Gap 9 Blood Urea Nitrogen 15 Creatinine 0.58 Estimat Glomerular Filtration 107 Rate Random Glucose 178 Calcium Level 8.4 Total Bilirubin 0.6 Aspartate Amino Transf 21 (AST/SGOT) Alanine Aminotransferase 16 (ALT/SGPT) Alkaline Phosphatase 390 Total Protein 7.9 Albumin 2.2 Date/Time Procedure Status Source Growth 08/17/16 19:10 Aerobic Blood Culture - Preliminary Resulted Blood Peripheral NO GROWTH IN 2 DAYS 08/17/16 19:10 Anaerobic Blood Culture - Preliminary Resulted Blood Peripheral NO GROWTH IN 2 DAYS 08/17/16 18:53 Urine Culture - Final Complete Urine Catheterized Urine NO GROWTH IN 48 HOURS. 08/16/16 10:50 Gram Stain - Final Complete Fluid Peritoneal Fluid 08/16/16 10:50 Body Fluid Culture - Final Complete Fluid Peritoneal Fluid NO GROWTH IN 72 HRS.--AEROBICALLY OR ... Cardiovascular: Regular Lungs: Clear Abdomen: Other (epigatric pain with palpation; mildly distended ) Extremities: No edema A/P Assessment and Plan 56 year old female with history of high grade stricture of the CBD; hepatic dysfunction; s/p MRCP and ERCP with stent placement -Diet as tolerated -Resp status improved -WBC trending down; ID following -GI following -No surgical plans at this time Attending Statement agree with current workup, will be available if diagnostic laparoscopy is needed , will follow The exam, history, and the medical decision-making described in the above note were completed with the assistance of the mid-level provider. I reviewed and agree with the findings presented. I attest that I had a [id number] encounter with the patient on the same day, and personally performed and documented my assessment and findings in the medical record. Melissa Colón Aug 19, 2016 15:18 Suresh Wylie MD Aug 20, 2016 22:20
--- NOTE | 2016-08-19 16:01 | HHI.PR ---
Subjective Remarks Follow-up for respiratory failure and sepsis and malignant cells in ascites fluid Patient's nurse Renny is at the bedside and he speaks Yi and is translating. Patient stated breathing has improved. Denies any shortness of breathing, cough. He has not had any fevers overnight. Patient stated that abdominal pain only occurs with deep inspiration. Otherwise patient states she feels like she is doing well. Objective Vitals Vital Signs Date Time Temp Pulse Resp B/P Pulse Ox O2 Delivery O2 Flow Rate FiO2 08/19/16 12:00 98.7 88 22 147/80 91 08/19/16 10:00 98.1 100 24 142/77 92 08/19/16 08:00 98.1 100 24 142/77 92 08/19/16 07:55 93 Nasal Cannula 3.00 08/19/16 07:15 107 08/19/16 07:00 91 Nasal Cannula 3.00 08/19/16 04:00 98.2 89 22 140/77 94 08/19/16 00:00 98.0 88 20 131/70 93 08/18/16 20:07 95 Nasal Cannula 3.00 08/18/16 20:00 97.9 86 22 134/74 94 08/18/16 19:15 86 08/18/16 19:00 94 Nasal Cannula 3.00 I/O 08/18/16 08/18/16 08/18/16 08/19/16 08/19/16 08/19/16 07:00 15:00 23:00 07:00 15:00 23:00 Intake Total 100 ml 800 ml 500 ml 657 ml 775 ml Output Total 300 ml 350 ml 300 ml 350 ml 500 ml Balance -200 ml 450 ml 200 ml 307 ml 275 ml Intake Oral 0 ml 500 ml 400 ml 240 ml 485 ml IV Total 100 ml 300 ml 100 ml 417 ml 290 ml Output Urine Total 300 ml 350 ml 300 ml 350 ml 500 ml # Bowel Movements 0 2 0 0 3 Result Diagram: 08/19/1644708/19/16447 Objective Remarks Gen in NAD Neck: Supple, airway patent. Lungs: Rhonchi left, good kelly air movement. Heart: Clear tones, NL S1S2, No JVD Abdomen: Soft, tender RUQ, no peritoneal irritation, BS few. Extremities: Warm, flushed. Neuro: Awake alert oriented 3. Moves 4 limbs. Medications and IVs Current Medications Morphine Sulfate (Morphine Inj) 4 mg ONCE ONCE IV PUSH Last administered on 16:39; Start 08/09/16 at 16:15; Stop 08/09/16 at 16:16; Status DC Ondansetron HCl 4 mg 4 mg ONCE ONCE IVP Last administered on 08/09/16 16:38; Start 08/09/16 at 16:15; Stop 08/09/16 at 16:16; Status DC Sodium Chloride (NS 1000 ml Inj) 1,000 ml @ 1,000 mls/hr Q1H IV Last administered on 08/09/16 16:39; Start 08/09/16 at 16:03; Stop 08/09/16 at 17:02 ; Status DC Sodium Chloride (NS Flush) 2 ml UNSCH PRN IV FLUSH FLUSH AFTER USING IV ACCESS Last administered on 08/09/16 20:01; Start 08/09/16 at 16:15; Stop 08/10/16 at 11:08; Status DC Ketorolac Tromethamine (Toradol Inj) 30 mg ONCE ONCE IVP Last administered on 08/09/16 16:38; Start 08/09/16 at 16:15; Stop 08/09/16 at 16:16; Status DC Iohexol 85 ml 85 ml STK-MED ONCE IV Last administered on 08/09/16 17:50; Start 08/09/16 at 17:50; Stop 08/09/16 at 17:51; Status DC Vancomycin HCl 1000 mg/Sodium Chloride 250 ml @ 250 mls/hr ONCE STAT IV Last administered on 08/09/16 20:01; Start 08/09/16 at 18:42; Stop 08/09/16 at 19:41 ; Status DC Aztreonam 2000 mg/ Sodium Chloride 100 ml @ 200 mls/hr ONCE STAT IV Last administered on 08/09/16 20:51; Start 08/09/16 at 18:42; Stop 08/09/16 at 19:11 ; Status DC Metronidazole (Flagyl 500 Mg Inj) 100 ml @ 100 mls/hr ONCE STAT IV Last administered on 08/09/16 20:01; Start 08/09/16 at 18:42; Stop 08/09/16 at 19:41 ; Status DC Sodium Chloride (NS Flush) 2 ml UNSCH PRN IV FLUSH FLUSH AFTER USING IV ACCESS Last administered on 08/11/16 03:00; Start 08/09/16 at 20:45 Sodium Chloride (NS Flush) 2 ml BID IV FLUSH Last administered on 08/19/16 08: 30; Start 08/09/16 at 21:00 Naloxone HCl (Narcan Inj) 0.4 mg UNSCH PRN IV SEE LABEL COMMENTS; Start at 20:45 Hydromorphone HCl 0.2 mg 0.2 mg Q4H PRN IV PUSH pain>5 Last administered on 09:22; Start 08/09/16 at 23:45 Ciprofloxacin/ Dextrose 200 ml @ 200 mls/hr Q12H IV Last administered on 04:38; Start 08/10/16 at 05:00; Stop 08/17/16 at 21:30; Status DC Metronidazole (Flagyl 500 Mg Inj) 100 ml @ 100 mls/hr Q6H IV Last administered on 08/19/16 12:43; Start 08/10/16 at 06:00 Pantoprazole Sodium (Protonix) 40 mg DAILY PO Last administered on 08/19/16 08 :29; Start 08/10/16 at 09:00 Morphine Sulfate 2 mg 2 mg Q3H PRN IV PUSH pain >5 Last administered on 18:39; Start 08/10/16 at 08:00; Stop 08/12/16 at 07:21; Status DC Sodium Chloride (NS 1000 ml Inj) 1,000 ml @ 75 mls/hr [id number] IV Last administered on 08/12/16 05:08; Start 08/10/16 at 11:17; Stop 08/12/16 at 13:58 ; Status DC Simethicone (Mylicon Chew) 80 mg ONCE ONCE CHEW Last administered on 15:23; Start 08/12/16 at 14:00; Stop 08/12/16 at 14:01; Status DC Simethicone (Mylicon Chew) 80 mg PCHS PRN CHEW BLOATING; Start 08/12/16 at 14: 00 Furosemide (Lasix) 20 mg BID@09,18 PO Last administered on 08/19/16 08:29; Start 08/13/16 at 15:45 Potassium Chloride (KCl) 20 meq ONCE ONCE PO Last administered on 08/13/16 16 :00; Start 08/13/16 at 15:45; Stop 08/13/16 at 15:46; Status DC Spironolactone (Aldactone) 25 mg BID@09,18 PO Last administered on 08/19/16 08 :29; Start 08/14/16 at 09:00 Iohexol (Omnipaque 350 Inj) 50 ml STK-MED ONCE IV Last administered on 08:01; Start 08/15/16 at 08:01; Stop 08/15/16 at 08:02; Status DC Clonidine (Catapres) 0.1 mg ONCE ONCE PO Last administered on 08/16/16 04:13 ; Start 08/16/16 at 04:00; Stop 08/16/16 at 04:01; Status DC Propofol (Diprivan 200 Mg/20 ml Inj) 450 mg STK-MED ONCE IV ; Start 08/17/16 at 14:14; Stop 08/17/16 at 15:01; Status DC Fentanyl Citrate (fentaNYL INJ) 100 mcg STK-MED ONCE .ROUTE ; Start 08/17/16 at 15:02; Stop 08/17/16 at 15:03; Status DC Miscellaneous Information ALL NURSING DEPARTME... UNSCH PRN .XX SEE LABEL COMMENTS; Start 08/17/16 at 14:58; Stop 08/18/16 at 14:57; Status DC Albuterol/ Ipratropium (Duoneb Neb) 1 ampule Q4HR NEB NEB Last administered on 08/19/16 12:54; Start 08/17/16 at 18:00 Methylprednisolone Sodium Succinate (SoluMEDROL INJ) 125 mg ONCE ONCE IV PUSH Last administered on 08/17/16 18:20; Start 08/17/16 at 18:30; Stop 08/17/16 at 18:31; Status DC Methylprednisolone Sodium Succinate (SoluMEDROL INJ) 60 mg Q6HR IV PUSH Last administered on 08/19/16 12:42; Start 08/18/16 at 00:00 Albuterol Sulfate (Albuterol Neb) 2.5 mg Q4HR NEB PRN INH SHORTNESS OF BREATH; Start 08/17/16 at 18:15 Metoprolol Tartrate (Lopressor) 25 mg Q12HR PO Last administered on 08/19/16 08:29; Start 08/17/16 at 21:00 Metoprolol Tartrate (Lopressor Inj) 5 mg Q6H PRN IV PUSH P > 130; Start at 18:45 Acetaminophen 1000 mg 1,000 mg ONCE ONCE IV Last administered on 08/17/16 19: 03; Start 08/17/16 at 19:00; Stop 08/17/16 at 19:01; Status DC Cefepime HCl/ Sodium Chloride (Maxipime Inj/NS Inj) 100 ml @ 200 mls/hr Q12H IV Last administered on 08/19/16 10:00; Start 08/17/16 at 22:00 Diphenhydramine HCl (Benadryl Inj) 25 mg Q6H PRN IV PUSH hives, itching; Start 08/17/16 at 22:00 Miscellaneous Information Patient in critical care unit? Ass... [id number] .XX ; Start 08/18/16 at 02:30 Chlorhexidine Gluconate (Chlorhexidine 2% Cloth) 3 pack DAILY@04 TOPICAL Last administered on 08/19/16 04:00; Start 08/18/16 at 04:00; Stop 08/22/16 at 04:01 Chlorhexidine Gluconate (Chlorhexidine 2% Cloth) 3 pack UNSCH PRN TOPICAL HYGIENIC CARE; Start 08/18/16 at 02:30; Stop 08/23/16 at 02:15 Potassium Bicarb/ Potassium Chloride 25 meq 25 meq ONCE ONCE PO Last administered on 08/19/16 10:00; Start 08/19/16 at 09:00; Stop 08/19/16 at 09:01 ; Status DC Vancomycin HCl 1000 mg/Sodium Chloride 250 ml @ 250 mls/hr ONCE ONCE IV ; Start 08/19/16 at 14:15; Stop 08/19/16 at 15:14; Status UNV Pharmacy Profile Note 0 ml @ 0 mls/hr UNSCH OTHER ; Start 08/19/16 at 14:15 Vancomycin HCl/ Sodium Chloride (Vancomycin Inj/ NS 500 ml Inj) 512.5 ml @ 250 mls/hr Q12H IV Last administered on 4/27/17at 14:52; Start 08/19/16 at 16:00 Miscellaneous Information SPECIFIC LAB TO BE DRAWN:VANCOMYCIN DATE TO BE . ONCE ONCE .XX ; Start 08/21/16 at 03:45; Stop 08/21/16 at 03:46 A/P Problem List: (1) Abdominal pain ICD Code: R10.9 Status: Acute Assessment and Plan 56-year-old female with history of CBD stricture s/p ERCP with stent placement 1 week ago from admission presents with abdominal pain, nausea/ vomiting Respiratory failure with hypoxia -Occurred after ERCP/EUS - had some wheezing so started on Solu-Medrol and nebulizers. -Improved now on nasal cannula. Treatment as below. Symptomatic ascites: Concern for malignancy. Cytology positive for non-small cell neoplasm. No hx of Alcohol use or cirrhosis. Imaging reviewed: CT abd showed Silastic biliary stent now present and appears appropriately positioned; Decreased intrahepatic biliary distention, now mild; Increased ascites, moderate; mild to moderate body wall edema/anasarca developing; Mild enteritis/colitis possible versus reactive wall thickening from the ascites. HIDA 08/10 shows nonvisualization of the gallbladder. -Consulted gastroenterology, per Dr. Whitehead, -Surgical oncology, Dr. Wylie, consulted. Not a good surgical candidate for cholecystectomy at this time. Symptoms not c/w cholecystitis at this time. -s/p U/S guided abdominal paracentesis 08/11 removed 5L green cloudy fluid, WBC 1320, RBC 897, cytology with features consistent with a non-small cell neoplasm -tumor markers remarkable for CA-125 elevated at 338 -Ascites fluid culture negative. -supportive treatment with pain control and antiemetics prn. Simethicone prn. -Diuresis with Lasix and Aldactone for ascites -Palliative care oncology following. -Patient had repeat paracentesis done on 08/16/2016. -Patient had ERCP/EUS done today on 08/17/2016. Acute Colitis: seen on CT abdomen as above -On IV Cipro/Flagyl for gastroenterology which was d/leny, will follow up with GI regarding diarrhea -diet as tolerated per gastroenterology -Recommending eating small portions to avoid simulating pain. Recent High Grade CBD Stricture: s/p ERCP with stent placement 07/31. Pathology revealed rare atypical cells present in the background of numerous glandular epithelial cells, malignancy cannot be excluded. LFTs have been trending down since stent placement. CT abd showed biliary stent appropriately positioned, decreased biliary distention, no pancreatitis. -Gastroenterology on board -Continue to monitor LFTs, stable, follow-up CMP. Sepsis: -May be secondary to aspiration pneumonia. Chest x-ray shows bilateral pleural effusion more in the left side in the right and left-sided infiltrate. -The managed by infectious disease. Patient is on cefepime, Flagyl, and vancomycin was added today. Left-sided pneumonia. -See treatment as above. Hyponatremia: likely secondary to dehydration -Na 126 upon arrival -s/p IVF -Today decrease. -Most likely secondary to third spacing. Hypokalemia: Secondary to poor by mouth intake. Potassium 3.3. Replaced orally. Repeat 3.6. Magnesium within normal limits. DVT prophylaxiswith Lovenox Discharge Planning Patient respiratory status has improved. She can be transferred back to the oncology floor. Problem Qualifiers (1) Abdominal pain: Qualified Code: R10.11 - Right upper quadrant abdominal pain Maddie Jewell MD Aug 19, 2016 16:01
[2016-08-19] MEDS ORDERED: diphenhydrAMINE HCL 25 MG CAP PO ONE (23:15)
[2016-08-20] VITALS (10 sets, daily range): BP systolic 136–175; BP diastolic 75–92; PULSE 75–95; RESP 18; TEMP 96.7–98.6; O2SAT 92–95
[2016-08-20] MEDS: CHLORHEXIDINE GLUCONATE 2 % 1 PACK (2 CLOTHS)(taper/protocol) TOPICAL SCH (04:00)
[2016-08-20] MEDS: RESP: ALBUTEROL 2.5 MG/IPRATROPIUM 0.5 MG NEB (SCH) NEB ×6 (04:00→21:57)
[2016-08-20] MEDS: metroNIDAZOLE 500 MG INJ 100 ML IV SCH ×2 (06:53→11:20)
[2016-08-20] MEDS: VANCOMYCIN INJ 1,250 MG in SODIUM CHLORID 0.9% 500 ML INJ 500 ML IV SCH (06:53)
[2016-08-20] MEDS: methylPREDNISolone SOD SUCC 125 MG/2 ML VIAL IV PUSH SCH ×2 (06:54→11:23)
[2016-08-20] MEDS: SODIUM CHLORIDE 0.9% FLUSH 10 ML FLUSH IV FLUSH SCH ×2 (09:00→20:38)
[2016-08-20] MEDS: FUROSEMIDE 20 MG TAB PO SCH ×2 (11:20→18:15)
[2016-08-20] MEDS: METOPROLOL TARTRATE 25 MG TAB PO SCH ×2 (11:20→20:34)
[2016-08-20] MEDS: PANTOPRAZOLE SOD 40 MG DELAYED RELEASE TAB PO SCH (11:20)
[2016-08-20] MEDS: SPIRONOLACTONE 25 MG TAB PO SCH ×2 (11:20→18:15)
[2016-08-20] MEDS: CEFEPIME INJ 2,000 MG in SODIUM CHLORIDE 0.9% INJ 100 ML IV SCH ×2 (11:21→21:38)
--- NOTE | 2016-08-20 11:39 | RADRPT ---
EXAM DATE/TIME: 08/20/2016 10:45 [facility] COMPARISON: No previous studies available for comparison. INDICATIONS : Short of breath. MEDICAL HISTORY : Cardiovascular disease. SURGICAL HISTORY : Cardiac stents ENCOUNTER: Subsequent ACUITY: 3 days PAIN SCORE: 0/10 LOCATION: Bilateral chest FINDINGS: Heart is enlarged. Mild interstitial prominence is present. Consolidative changes are seen in both bases worse on the left than the right. Trace pleural effusion is noted. CONCLUSION: Mild interstitial edema with consolidative changes in both bases worse on the left. Trell Souza MD FACR on August 20, 2016 at 11:21 Board Certified Radiologist. This report was verified electronically.
--- NOTE | 2016-08-20 13:35 | HHI.IDPN ---
Subjective Subjective Remarks Notes reviewed Temps normal BP ok States she gets epigastric pain when she takes deep breaths On nasal O2 C/O diarrhea, repeat C diff pending Repeat cytology with atypical cells C/S negative so far WBC slightly better 27K from 29K Antibiotics Cefepime Vancomycin Past Medical History Recent diagnosis of high-grade common bile duct stricture, status post stent placement Diagnosed to have ascites also during her last admission Past Surgical History ERCP, and stent placement Paracenteses Allergies: Coded Allergies: Penicillin (Verified Allergy, Unknown, 08/09/16) Objective . Vital Signs Date Time Temp Pulse Resp B/P Pulse Ox O2 Delivery O2 Flow Rate FiO2 08/20/16 09:19 Nasal Cannula 3.00 32 08/20/16 08:46 93 Nasal Cannula 3.00 08/20/16 08:21 96.9 83 18 162/80 94 08/20/16 04:00 97.7 75 18 152/82 94 08/20/16 00:00 97.4 95 18 146/75 93 08/19/16 22:30 92 Nasal Cannula 3.00 32 08/19/16 22:30 109 08/19/16 22:00 99.2 99 18 176/93 91 08/19/16 20:33 94 Nasal Cannula 3.00 08/19/16 20:00 98.2 87 23 163/77 93 08/19/16 19:15 92 08/19/16 19:00 92 Nasal Cannula 3.00 08/19/16 16:00 98.4 93 20 156/79 81 08/19/16 08/19/16 08/20/16 15:00 23:00 07:00 Intake Total 775 ml 240 ml Output Total 500 ml 450 ml 900 ml Balance 275 ml -210 ml -900 ml Intake Oral 485 ml 240 ml IV Total 290 ml 0 ml Output Urine Total 500 ml 450 ml 900 ml # Bowel Movements 3 1 . Laboratory Tests Test 08/19/16 04:48 White Blood Count 27.8 TH/MM3 Red Blood Count 3.86 MIL/MM3 Hemoglobin 11.2 GM/DL Hematocrit 33.1 % Mean Corpuscular Volume 85.7 FL Mean Corpuscular Hemoglobin 29.1 PG Mean Corpuscular Hemoglobin 34.0 % Concent Red Cell Distribution Width 15.5 % Platelet Count 444 TH/MM3 Mean Platelet Volume 8.4 FL Neutrophils (%) (Auto) 96.6 % Lymphocytes (%) (Auto) 2.1 % Monocytes (%) (Auto) 1.3 % Eosinophils (%) (Auto) 0.0 % Basophils (%) (Auto) 0.0 % Neutrophils # (Auto) 26.9 TH/MM3 Lymphocytes # (Auto) 0.6 TH/MM3 Monocytes # (Auto) 0.4 TH/MM3 Eosinophils # (Auto) 0.0 TH/MM3 Basophils # (Auto) 0.0 TH/MM3 CBC Comment DIFF FINAL Differential Comment Laboratory Tests Test 08/19/16 04:48 Sodium Level 132 MEQ/L Potassium Level 3.3 MEQ/L Chloride Level 93 MEQ/L Carbon Dioxide Level 30.4 MEQ/L Anion Gap 9 MEQ/L Blood Urea Nitrogen 15 MG/DL Creatinine 0.58 MG/DL Estimat Glomerular Filtration 107 ML/MIN Rate Random Glucose 178 MG/DL Calcium Level 8.4 MG/DL Total Bilirubin 0.6 MG/DL Aspartate Amino Transf 21 U/L (AST/SGOT) Alanine Aminotransferase 16 U/L (ALT/SGPT) Alkaline Phosphatase 390 U/L Total Protein 7.9 GM/DL Albumin 2.2 GM/DL Microbiology Date/Time Procedure Status Source Growth 08/17/16 18:53 Urine Culture - Final Complete Urine Catheterized Urine NO GROWTH IN 48 HOURS. 08/17/16 19:00 Aerobic Blood Culture - Preliminary Resulted Blood Peripheral NO GROWTH IN 3 DAYS 08/17/16 19:00 Anaerobic Blood Culture - Preliminary Resulted Blood Peripheral NO GROWTH IN 3 DAYS 08/17/16 19:10 Aerobic Blood Culture - Preliminary Resulted Blood Peripheral NO GROWTH IN 3 DAYS 08/17/16 19:10 Anaerobic Blood Culture - Preliminary Resulted Blood Peripheral NO GROWTH IN 3 DAYS Imaging Chest X-Ray 08/17/16 0000 Signed Impressions: Service Date/Time: Wednesday, August 17, 2016 17:57 - CONCLUSION: Scattered airspace disease could be layering pleural effusions greater on the left. Pulmonary edema cannot be excluded. Grady Wilson MD Cyst Biopsy Asp-Paracentesis US 08/16/16 0000 Signed Impressions: Service Date/Time: Tuesday, August 16, 2016 09:24 - CONCLUSION: Uncomplicated ultrasound guided paracentesis. Grady Wilson MD Pelvis Ultrasound 08/14/16 0000 Signed Impressions: Service Date/Time: Sunday, August 14, 2016 22:18 - CONCLUSION: 1. Moderate amount of ascites within the pelvis. 2. Lack of visualization of both ovaries. 3. No discrete mass observed. Bert Nunes Jr., MD Chest CT 08/14/16 0000 Signed Impressions: Service Date/Time: Monday, August 15, 2016 07:53 - CONCLUSION: Bilateral mild pleural effusions being greater on the right. Fadi Cordova MD Hepatobiliary Scan Nuclear Medicine 08/09/16 0000 Signed Impressions: Service Date/Time: Tuesday, August 09, 2016 20:50 - CONCLUSION: Nonvisualization of the gallbladder however the patient does have a stent in place. I reviewed the CT scan from the same day which failed to demonstrate any obvious gallbladder wall thickening. Delayed images of the gallbladder will be performed. Matt Tovar MD ADDENDUM: COMPARISON: BILIARY SCAN ([facility]), July 30, 2016, 13:41. A delayed image in anterior and right lateral projection was performed at 16 hours. There is no activity seen within the lumen of gallbladder. Since the patient has an indwelling biliary stent, absence of gallbladder visualization is nonpredictive with respect to cystic duct obstruction. Bert Brandon MD Abdomen/Pelvis CT 08/09/16 0000 Signed Impressions: Service Date/Time: Tuesday, August 09, 2016 17:46 - CONCLUSION: 1. Silastic biliary stent now present and appears appropriately positioned. Decreased intrahepatic biliary distention, now mild. No pancreatitis or other acute complication demonstrated. 2. Increased ascites, moderate. Also mild to moderate body wall edema/anasarca developing. 3. Mild enteritis/colitis possible versus reactive wall thickening from the ascites. In any event, no obstruction demonstrated. Fadi Yin MD Physical Exam GENERAL: awake and alert, not in any respiratory distress SKIN: Warm and dry. No generalized rash or ecchymoses. HEENT: [place] conjunctivae, no petechia or hemorrhage. No scleral icterus. Moist oral mucosa. No oral thrush. NECK: Trachea midline. No JVD or lymphadenopathy. Supple, nontender, no meningeal signs. CARDIOVASCULAR: Regular rate and rhythm without gallops, or rubs. Has a soft murmur heard best in the left sternal border, possibly a flow murmur. RESPIRATORY: Breath sounds equal bilaterally. No wheezes, rales, or rhonchi. Has decreased breath sounds on the left side and R base GASTROINTESTINAL: Abdomen soft, with tenderness in the epigastric area. No guarding or rebound. Her present and normoactive. No hepato-splenomegaly, or palpable masses. MUSCULOSKELETAL: Extremities without clubbing, cyanosis, or edema. No joint tenderness, effusion, or edema noted. No calf tenderness. 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 Allergy to PCN, gets rash RECOMMENDATION Follow C/S Continue Cefepime Stop Vancomycin Change Flagyl to po Follow CBC Monitor progress If stable, and nothing else on C/S, change Cefepime to Levaquin tomorrow Give oral Levaquin and Flagyl x 7 days ( end date ay 4) If C diff (+) give Flagyl x 14 days I will check patient again on Tuesday Dr Menezes covering this weekend if needed Kristin Lindo MD Aug 20, 2016 13:35
[2016-08-20] MEDS: metroNIDAZOLE 500 MG TAB PO SCH ×2 (13:59→21:38)
--- NOTE | 2016-08-20 14:02 | HHI.PR ---
Subjective Remarks Follow-up for aspiration pneumonia and ascites Online video registered pharmacist use. Patient asking if she can have the Matthew removed so she can walk. Patient states she has shortness of breathing but that has improved. Patient does have epigastric pain but stated that it has been the same. Objective Vitals Vital Signs Date Time Temp Pulse Resp B/P Pulse Ox O2 Delivery O2 Flow Rate FiO2 08/20/16 09:19 Nasal Cannula 3.00 32 08/20/16 08:46 93 Nasal Cannula 3.00 08/20/16 08:21 96.9 83 18 162/80 94 08/20/16 04:00 97.7 75 18 152/82 94 08/20/16 00:00 97.4 95 18 146/75 93 08/19/16 22:30 92 Nasal Cannula 3.00 32 08/19/16 22:30 109 08/19/16 22:00 99.2 99 18 176/93 91 08/19/16 20:33 94 Nasal Cannula 3.00 08/19/16 20:00 98.2 87 23 163/77 93 08/19/16 19:15 92 08/19/16 19:00 92 Nasal Cannula 3.00 08/19/16 16:00 98.4 93 20 156/79 81 I/O 08/19/16 08/19/16 08/19/16 08/20/16 08/20/16 08/20/16 07:00 15:00 23:00 07:00 15:00 23:00 Intake Total 657 ml 775 ml 240 ml Output Total 350 ml 500 ml 450 ml 900 ml Balance 307 ml 275 ml -210 ml -900 ml Intake Oral 240 ml 485 ml 240 ml IV Total 417 ml 290 ml 0 ml Output Urine Total 350 ml 500 ml 450 ml 900 ml # Bowel Movements 0 3 1 Result Diagram: 08/19/16 0448 08/19/16 0448 Objective Remarks Gen in NAD Neck: Supple, airway patent. Lungs: good kelly air movement. Heart: Clear tones, NL S1S2, No JVD Abdomen: Soft, tender epigastric area, no peritoneal irritation, BS few. Extremities: Warm, flushed. Neuro: Awake alert oriented 3. Moves 4 limbs. Medications and IVs Current Medications Morphine Sulfate (Morphine Inj) 4 mg ONCE ONCE IV PUSH Last administered on t 16:39; Start 08/09/16 at 16:15; Stop 08/09/16 at 16:16; Status DC Ondansetron HCl 4 mg 4 mg ONCE ONCE IVP Last administered on 08/09/16 16:38; Start 08/09/16 at 16:15; Stop 08/09/16 at 16:16; Status DC Sodium Chloride (NS 1000 ml Inj) 1,000 ml @ 1,000 mls/hr Q1H IV Last administered on 08/09/16 16:39; Start 08/09/16 at 16:03; Stop 08/09/16 at 17:02 ; Status DC Sodium Chloride (NS Flush) 2 ml UNSCH PRN IV FLUSH FLUSH AFTER USING IV ACCESS Last administered on 08/09/16 20:01; Start 08/09/16 at 16:15; Stop 08/10/16 at 11:08; Status DC Ketorolac Tromethamine (Toradol Inj) 30 mg ONCE ONCE IVP Last administered on 08/09/16 16:38; Start 08/09/16 at 16:15; Stop 08/09/16 at 16:16; Status DC Iohexol 85 ml 85 ml STK-MED ONCE IV Last administered on 08/09/16 17:50; Start 08/09/16 at 17:50; Stop 08/09/16 at 17:51; Status DC Vancomycin HCl 1000 mg/Sodium Chloride 250 ml @ 250 mls/hr ONCE STAT IV Last administered on 08/09/16 20:01; Start 08/09/16 at 18:42; Stop 08/09/16 at 19:41 ; Status DC Aztreonam 2000 mg/ Sodium Chloride 100 ml @ 200 mls/hr ONCE STAT IV Last administered on 08/09/16 20:51; Start 08/09/16 at 18:42; Stop 08/09/16 at 19:11 ; Status DC Metronidazole (Flagyl 500 Mg Inj) 100 ml @ 100 mls/hr ONCE STAT IV Last administered on 08/09/16 20:01; Start 08/09/16 at 18:42; Stop 08/09/16 at 19:41 ; Status DC Sodium Chloride (NS Flush) 2 ml UNSCH PRN IV FLUSH FLUSH AFTER USING IV ACCESS Last administered on 08/11/16 03:00; Start 08/09/16 at 20:45 Sodium Chloride (NS Flush) 2 ml BID IV FLUSH Last administered on 08/19/16 20: 07; Start 08/09/16 at 21:00 Naloxone HCl (Narcan Inj) 0.4 mg UNSCH PRN IV SEE LABEL COMMENTS; Start at 20:45 Hydromorphone HCl 0.2 mg 0.2 mg Q4H PRN IV PUSH pain>5 Last administered on 09:22; Start 08/09/16 at 23:45 Ciprofloxacin/ Dextrose 200 ml @ 200 mls/hr Q12H IV Last administered on 04:38; Start 08/10/16 at 05:00; Stop 08/17/16 at 21:30; Status DC Metronidazole (Flagyl 500 Mg Inj) 100 ml @ 100 mls/hr Q6H IV Last administered on 08/20/16 11:20; Start 08/10/16 at 06:00; Stop 08/20/16 at 13:33 ; Status DC Pantoprazole Sodium (Protonix) 40 mg DAILY PO Last administered on 08/20/16 11 :20; Start 08/10/16 at 09:00 Morphine Sulfate 2 mg 2 mg Q3H PRN IV PUSH pain >5 Last administered on 18:39; Start 08/10/16 at 08:00; Stop 08/12/16 at 07:21; Status DC Sodium Chloride (NS 1000 ml Inj) 1,000 ml @ 75 mls/hr [id number] IV Last administered on 08/12/16 05:08; Start 08/10/16 at 11:17; Stop 08/12/16 at 13:58 ; Status DC Simethicone (Mylicon Chew) 80 mg ONCE ONCE CHEW Last administered on 15:23; Start 08/12/16 at 14:00; Stop 08/12/16 at 14:01; Status DC Simethicone (Mylicon Chew) 80 mg PCHS PRN CHEW BLOATING; Start 08/12/16 at 14: 00 Furosemide (Lasix) 20 mg BID@09,18 PO Last administered on 08/20/16 11:20; Start 08/13/16 at 15:45 Potassium Chloride (KCl) 20 meq ONCE ONCE PO Last administered on 08/13/16 16 :00; Start 08/13/16 at 15:45; Stop 08/13/16 at 15:46; Status DC Spironolactone (Aldactone) 25 mg BID@09,18 PO Last administered on 08/20/16 11 :20; Start 08/14/16 at 09:00 Iohexol (Omnipaque 350 Inj) 50 ml STK-MED ONCE IV Last administered on 08:01; Start 08/15/16 at 08:01; Stop 08/15/16 at 08:02; Status DC Clonidine (Catapres) 0.1 mg ONCE ONCE PO Last administered on 08/16/16 04:13 ; Start 08/16/16 at 04:00; Stop 08/16/16 at 04:01; Status DC Propofol (Diprivan 200 Mg/20 ml Inj) 450 mg STK-MED ONCE IV ; Start 08/17/16 at 14:14; Stop 08/17/16 at 15:01; Status DC Fentanyl Citrate (fentaNYL INJ) 100 mcg STK-MED ONCE .ROUTE ; Start 08/17/16 at 15:02; Stop 08/17/16 at 15:03; Status DC Miscellaneous Information ALL NURSING DEPARTME... UNSCH PRN .XX SEE LABEL COMMENTS; Start 08/17/16 at 14:58; Stop 08/18/16 at 14:57; Status DC Albuterol/ Ipratropium (Duoneb Neb) 1 ampule Q4HR NEB NEB Last administered on 08/20/16 08:46; Start 08/17/16 at 18:00 Methylprednisolone Sodium Succinate (SoluMEDROL INJ) 125 mg ONCE ONCE IV PUSH Last administered on 08/17/16 18:20; Start 08/17/16 at 18:30; Stop 08/17/16 at 18:31; Status DC Methylprednisolone Sodium Succinate (SoluMEDROL INJ) 60 mg Q6HR IV PUSH Last administered on 08/20/16 11:23; Start 08/18/16 at 00:00 Albuterol Sulfate (Albuterol Neb) 2.5 mg Q4HR NEB PRN INH SHORTNESS OF BREATH; Start 08/17/16 at 18:15 Metoprolol Tartrate (Lopressor) 25 mg Q12HR PO Last administered on 08/20/16 11:20; Start 08/17/16 at 21:00 Metoprolol Tartrate (Lopressor Inj) 5 mg Q6H PRN IV PUSH P > 130; Start at 18:45; Stop 08/19/16 at 21:23; Status DC Acetaminophen 1000 mg 1,000 mg ONCE ONCE IV Last administered on 08/17/16 19: 03; Start 08/17/16 at 19:00; Stop 08/17/16 at 19:01; Status DC Cefepime HCl/ Sodium Chloride (Maxipime Inj/NS Inj) 100 ml @ 200 mls/hr Q12H IV Last administered on 08/20/16 11:21; Start 08/17/16 at 22:00 Diphenhydramine HCl (Benadryl Inj) 25 mg Q6H PRN IV PUSH hives, itching; Start 08/17/16 at 22:00 Miscellaneous Information Patient in critical care unit? Ass... Q361D .XX ; Start 08/18/16 at 02:30 Chlorhexidine Gluconate (Chlorhexidine 2% Cloth) 3 pack DAILY@04 TOPICAL Last administered on 08/20/16 04:00; Start 08/18/16 at 04:00; Stop 08/22/16 at 04:01 Chlorhexidine Gluconate (Chlorhexidine 2% Cloth) 3 pack UNSCH PRN TOPICAL HYGIENIC CARE; Start 08/18/16 at 02:30; Stop 08/23/16 at 02:15 Potassium Bicarb/ Potassium Chloride 25 meq 25 meq ONCE ONCE PO Last administered on 08/19/16 10:00; Start 08/19/16 at 09:00; Stop 08/19/16 at 09:01 ; Status DC Vancomycin HCl 1000 mg/Sodium Chloride 250 ml @ 250 mls/hr ONCE ONCE IV ; Start 08/19/16 at 14:15; Stop 08/19/16 at 15:14; Status UNV Pharmacy Profile Note 0 ml @ 0 mls/hr UNSCH OTHER ; Start 08/19/16 at 14:15; Stop 08/20/16 at 13:31; Status DC Vancomycin HCl/ Sodium Chloride (Vancomycin Inj/ NS 500 ml Inj) 512.5 ml @ 250 mls/hr Q12H IV Last administered on 08/20/16 06:53; Start 08/19/16 at 16:00; Stop 08/20/16 at 11:34; Status DC Miscellaneous Information SPECIFIC LAB TO BE DRAWN:VANCOMYCIN DATE TO BE DRIngrid.. ONCE ONCE .XX ; Start 08/21/16 at 03:45; Stop 08/21/16 at 03:46; Status Cancel Diphenhydramine HCl 25 mg 25 mg ONCE ONCE PO Last administered on 08/19/16t 23 :33; Start 08/19/16 at 23:15; Stop 08/19/16 at 23:16; Status DC Vancomycin HCl/ Sodium Chloride (Vancomycin Inj/ NS 250 ml Inj) 262.5 ml @ 250 mls/hr Q12H IV ; Start 08/20/16 at 16:00; Stop 08/20/16 at 16:00; Status DC Metronidazole (Flagyl) 500 mg Q8HR PO ; Start 08/20/16 at 14:00 A/P Problem List: (1) Abdominal pain ICD Code: R10.9 Status: Acute Assessment and Plan 56-year-old female with history of CBD stricture s/p ERCP with stent placement 1 week ago from admission presents with abdominal pain, nausea/ vomiting Respiratory failure with hypoxia -Occurred after ERCP/EUS - had some wheezing so started on Solu-Medrol and nebulizers. -Improved now on nasal cannula. Treatment as below. -Since clinically exam has improved will wean off of Solu-Medrol. Symptomatic ascites: Concern for malignancy. Cytology positive for non-small cell neoplasm. No hx of Alcohol use or cirrhosis. Imaging reviewed: CT abd showed Silastic biliary stent now present and appears appropriately positioned; Decreased intrahepatic biliary distention, now mild; Increased ascites, moderate; mild to moderate body wall edema/anasarca developing; Mild enteritis/colitis possible versus reactive wall thickening from the ascites. HIDA 08/10 shows nonvisualization of the gallbladder. -Consulted gastroenterology, per Dr. Whitehead, -Surgical oncology, Dr. Wylie, consulted. Not a good surgical candidate for cholecystectomy at this time. Symptoms not c/w cholecystitis at this time. -s/p U/S guided abdominal paracentesis 08/11 removed 5L green cloudy fluid, WBC 1320, RBC 897, cytology with features consistent with a non-small cell neoplasm -tumor markers remarkable for CA-125 elevated at 338 -Ascites fluid culture negative. -supportive treatment with pain control and antiemetics prn. Simethicone prn. -Diuresis with Lasix and Aldactone for ascites -Palliative care oncology following. -Patient had repeat paracentesis done on 08/16/2016. -Patient had ERCP/EUS done today on 08/17/2016. Acute Colitis: seen on CT abdomen as above -On IV Cipro/Flagyl for gastroenterology which was d/leny, will follow up with GI regarding diarrhea -diet as tolerated per gastroenterology -Recommending eating small portions to avoid simulating pain. Recent High Grade CBD Stricture: s/p ERCP with stent placement 07/31. Pathology revealed rare atypical cells present in the background of numerous glandular epithelial cells, malignancy cannot be excluded. LFTs have been trending down since stent placement. CT abd showed biliary stent appropriately positioned, decreased biliary distention, no pancreatitis. -Gastroenterology on board -Continue to monitor LFTs, stable, follow-up CMP. Sepsis: -May be secondary to aspiration pneumonia. Chest x-ray shows bilateral pleural effusion more in the left side in the right and left-sided infiltrate. -The managed by infectious disease. Patient is on cefepime, Flagyl, and vancomycin. Left-sided pneumonia. -See treatment as above. Hyponatremia: likely secondary to dehydration -Na 126 upon arrival -s/p IVF -Today decrease. -Most likely secondary to third spacing. Hypokalemia: Secondary to poor by mouth intake. Potassium 3.3. Replaced orally. Repeat 3.6. Magnesium within normal limits. DVT prophylaxiswith Lovenox Problem Qualifiers (1) Abdominal pain: Qualified Code: R10.11 - Right upper quadrant abdominal pain Maddie Jewell MD Aug 20, 2016 14:01
[2016-08-20 14:52] LABS: C. DIFF EPI 027 PRESUMPTIVE NEGATIVE (NEGATIVE); C. DIFF TOXIN PCR NEGATIVE (NEGATIVE)
[2016-08-20] MEDS ORDERED: VANCOMYCIN INJ 1,250 MG in SODIUM CHLOR 0.9% 250 ML INJ 250 ML IV SCH (16:00)
[2016-08-20] MEDS: predniSONE 20 MG TAB PO SCH (20:34)
[2016-08-21] VITALS (12 sets, daily range): BP systolic 164–197; BP diastolic 80–102; PULSE 83–90; RESP 16–20; TEMP 96.8–97.9; O2SAT 91–96
[2016-08-21] MEDS: RESP: ALBUTEROL 2.5 MG/IPRATROPIUM 0.5 MG NEB (SCH) NEB ×5 (01:26→15:06)
[2016-08-21] MEDS ORDERED: PHARMACY ORDERED LAB ONE (03:45)
[2016-08-21] MEDS: CHLORHEXIDINE GLUCONATE 2 % 1 PACK (2 CLOTHS)(taper/protocol) TOPICAL SCH (04:00)
[2016-08-21] MEDS: metroNIDAZOLE 500 MG TAB PO SCH ×3 (06:15→21:58)
[2016-08-21 08:10] LABS: AUTOMATED NEUTROPHIL # 13.7 TH/MM3 (1.8-7.7); BASOPHIL % 0.1 % (0.0-2.0); HEMATOCRIT 34.9 % (35.0-46.0); HEMO FLAGS DIFF FINAL; LYMPH % 5.6 % (9.0-44.0); LYMPHOCYTE # 0.9 TH/MM3 (1.0-4.8); MEAN CORPUSCULAR HEMOGLOBIN 28.8 PG (27.0-34.0); MEAN CORPUSCULAR HGB CONC 33.4 % (32.0-36.0); MONO % 5.4 % (0.0-8.0); NEUT % 88.9 % (16.0-70.0); PLATELET COUNT 404 TH/MM3 (150-450); RED BLOOD COUNT 4.06 MIL/MM3 (4.00-5.30); RED CELL DISTRIBUTION WIDTH 15.2 % (11.6-17.2); WHITE BLOOD COUNT 15.4 TH/MM3 (4.0-11.0)
[2016-08-21 08:18] LABS: BICARBONATE 29.8 MEQ/L (21.0-32.0); POTASSIUM 3.2 MEQ/L (3.5-5.1)
[2016-08-21] MEDS: FUROSEMIDE 20 MG TAB PO SCH ×2 (09:37→17:57)
[2016-08-21] MEDS: predniSONE 20 MG TAB PO SCH ×2 (09:37→20:21)
[2016-08-21] MEDS: PANTOPRAZOLE SOD 40 MG DELAYED RELEASE TAB PO SCH (09:37)
[2016-08-21] MEDS: SPIRONOLACTONE 25 MG TAB PO SCH ×2 (09:37→17:57)
[2016-08-21] MEDS: METOPROLOL TARTRATE 25 MG TAB PO SCH ×2 (09:38→20:21)
[2016-08-21] MEDS: CEFEPIME INJ 2,000 MG in SODIUM CHLORIDE 0.9% INJ 100 ML IV SCH ×2 (09:38→21:58)
[2016-08-21] MEDS: SODIUM CHLORIDE 0.9% FLUSH 10 ML FLUSH IV FLUSH SCH ×2 (09:39→20:26)
[2016-08-21] MEDS ORDERED: ENALAPRILAT 1.25 MG/ML VIAL IV PUSH PRN (14:00)
[2016-08-21] MEDS: amLODIPine BESYLATE 5 MG TAB PO SCH (15:30)
--- NOTE | 2016-08-21 16:37 | HHI.PR ---
Subjective Remarks f/u for malignant ascites and aspiration PNA. patient's daughter is translating decline video medical billing coordinator. multiple family members at bedside. c/o producing sputum. denied any SOB. She feels SOB improved. Denied any abdominal pain. Family requesting Oncologist to see patient. They stated they had not seen evp managing director. Objective Vitals Vital Signs Date Time Temp Pulse Resp B/P Pulse Ox O2 Delivery O2 Flow Rate FiO2 08/21/16 15:17 91 Nasal Cannula 2.00 08/21/16 13:15 169/89 08/21/16 12:00 96.8 88 18 197/102 96 08/21/16 09:40 95 Nasal Cannula 3.00 32 08/21/16 09:40 83 08/21/16 09:12 94 Nasal Cannula 2.00 08/21/16 08:00 97.9 88 18 168/84 92 08/21/16 06:59 165/80 08/21/16 04:00 96.8 88 18 172/94 94 08/21/16 00:00 97.4 83 18 164/81 93 08/20/16 21:59 93 Nasal Cannula 2.00 08/20/16 21:00 82 08/20/16 21:00 95 Nasal Cannula 3.00 32 08/20/16 20:00 97.7 85 18 172/88 95 I/O 08/20/16 08/20/16 08/20/16 08/21/16 08/21/16 08/21/16 07:00 15:00 23:00 07:00 15:00 23:00 Intake Total 480 ml 240 ml 120 ml Output Total 900 ml 2850 ml Balance -900 ml -2370 ml 240 ml 120 ml Intake Oral 480 ml 240 ml 120 ml Output Urine Total 900 ml 2850 ml # Voids 1 5 # Bowel Movements 5 1 Result Diagram: 08/21/16 0703 08/21/16 0703 Objective Remarks Gen in NAD Neck: Supple, airway patent. Lungs: good kelly air movement. Heart: Clear tones, NL S1S2, No JVD Abdomen: Soft, tender epigastric area, no peritoneal irritation, BS few. Extremities: Warm, flushed. Neuro: Awake alert oriented 3. Moves 4 limbs. Medications and IVs Current Medications Morphine Sulfate (Morphine Inj) 4 mg ONCE ONCE IV PUSH Last administered on t 16:39; Start 08/09/16 at 16:15; Stop 08/09/16 at 16:16; Status DC Ondansetron HCl 4 mg 4 mg ONCE ONCE IVP Last administered on 08/09/16 16:38; Start 08/09/16 at 16:15; Stop 08/09/16 at 16:16; Status DC Sodium Chloride (NS 1000 ml Inj) 1,000 ml @ 1,000 mls/hr Q1H IV Last administered on 08/09/16 16:39; Start 08/09/16 at 16:03; Stop 08/09/16 at 17:02 ; Status DC Sodium Chloride (NS Flush) 2 ml UNSCH PRN IV FLUSH FLUSH AFTER USING IV ACCESS Last administered on 08/09/16 20:01; Start 08/09/16 at 16:15; Stop 08/10/16 at 11:08; Status DC Ketorolac Tromethamine (Toradol Inj) 30 mg ONCE ONCE IVP Last administered on 08/09/16 16:38; Start 08/09/16 at 16:15; Stop 08/09/16 at 16:16; Status DC Iohexol 85 ml 85 ml STK-MED ONCE IV Last administered on 08/09/16 17:50; Start 08/09/16 at 17:50; Stop 08/09/16 at 17:51; Status DC Vancomycin HCl 1000 mg/Sodium Chloride 250 ml @ 250 mls/hr ONCE STAT IV Last administered on 08/09/16 20:01; Start 08/09/16 at 18:42; Stop 08/09/16 at 19:41 ; Status DC Aztreonam 2000 mg/ Sodium Chloride 100 ml @ 200 mls/hr ONCE STAT IV Last administered on 08/09/16 20:51; Start 08/09/16 at 18:42; Stop 08/09/16 at 19:11 ; Status DC Metronidazole (Flagyl 500 Mg Inj) 100 ml @ 100 mls/hr ONCE STAT IV Last administered on 08/09/16 20:01; Start 08/09/16 at 18:42; Stop 08/09/16 at 19:41 ; Status DC Sodium Chloride (NS Flush) 2 ml UNSCH PRN IV FLUSH FLUSH AFTER USING IV ACCESS Last administered on 08/11/16 03:00; Start 08/09/16 at 20:45 Sodium Chloride (NS Flush) 2 ml BID IV FLUSH Last administered on 08/21/16 09: 39; Start 08/09/16 at 21:00 Naloxone HCl (Narcan Inj) 0.4 mg UNSCH PRN IV SEE LABEL COMMENTS; Start at 20:45 Hydromorphone HCl 0.2 mg 0.2 mg Q4H PRN IV PUSH pain>5 Last administered on 09:22; Start 08/09/16 at 23:45 Ciprofloxacin/ Dextrose 200 ml @ 200 mls/hr Q12H IV Last administered on 04:38; Start 08/10/16 at 05:00; Stop 08/17/16 at 21:30; Status DC Metronidazole (Flagyl 500 Mg Inj) 100 ml @ 100 mls/hr Q6H IV Last administered on 08/20/16 11:20; Start 08/10/16 at 06:00; Stop 08/20/16 at 13:33 ; Status DC Pantoprazole Sodium (Protonix) 40 mg DAILY PO Last administered on 08/21/16 09 :37; Start 08/10/16 at 09:00 Morphine Sulfate 2 mg 2 mg Q3H PRN IV PUSH pain >5 Last administered on 18:39; Start 08/10/16 at 08:00; Stop 08/12/16 at 07:21; Status DC Sodium Chloride (NS 1000 ml Inj) 1,000 ml @ 75 mls/hr [id number] IV Last administered on 08/12/16 05:08; Start 08/10/16 at 11:17; Stop 08/12/16 at 13:58 ; Status DC Simethicone (Mylicon Chew) 80 mg ONCE ONCE CHEW Last administered on 15:23; Start 08/12/16 at 14:00; Stop 08/12/16 at 14:01; Status DC Simethicone (Mylicon Chew) 80 mg PCHS PRN CHEW BLOATING; Start 08/12/16 at 14: 00 Furosemide (Lasix) 20 mg BID@09,18 PO Last administered on 08/21/16 09:37; Start 08/13/16 at 15:45 Potassium Chloride (KCl) 20 meq ONCE ONCE PO Last administered on 08/13/16 16 :00; Start 08/13/16 at 15:45; Stop 08/13/16 at 15:46; Status DC Spironolactone (Aldactone) 25 mg BID@09,18 PO Last administered on 08/21/16 09 :37; Start 08/14/16 at 09:00 Iohexol (Omnipaque 350 Inj) 50 ml STK-MED ONCE IV Last administered on 08:01; Start 08/15/16 at 08:01; Stop 08/15/16 at 08:02; Status DC Clonidine (Catapres) 0.1 mg ONCE ONCE PO Last administered on 08/16/16 04:13 ; Start 08/16/16 at 04:00; Stop 08/16/16 at 04:01; Status DC Propofol (Diprivan 200 Mg/20 ml Inj) 450 mg STK-MED ONCE IV ; Start 08/17/16 at 14:14; Stop 08/17/16 at 15:01; Status DC Fentanyl Citrate (fentaNYL INJ) 100 mcg STK-MED ONCE .ROUTE ; Start 08/17/16 at 15:02; Stop 08/17/16 at 15:03; Status DC Miscellaneous Information ALL NURSING DEPARTME... UNSCH PRN .XX SEE LABEL COMMENTS; Start 08/17/16 at 14:58; Stop 08/18/16 at 14:57; Status DC Albuterol/ Ipratropium (Duoneb Neb) 1 ampule Q4HR NEB NEB Last administered on 08/21/16 15:06; Start 08/17/16 at 18:00 Methylprednisolone Sodium Succinate (SoluMEDROL INJ) 125 mg ONCE ONCE IV PUSH Last administered on 08/17/16 18:20; Start 08/17/16 at 18:30; Stop 08/17/16 at 18:31; Status DC Methylprednisolone Sodium Succinate (SoluMEDROL INJ) 60 mg Q6HR IV PUSH Last administered on 08/20/16 11:23; Start 08/18/16 at 00:00; Stop 08/20/16 at 14:02 ; Status DC Albuterol Sulfate (Albuterol Neb) 2.5 mg Q4HR NEB PRN INH SHORTNESS OF BREATH; Start 08/17/16 at 18:15 Metoprolol Tartrate (Lopressor) 25 mg Q12HR PO Last administered on 08/21/16 09:38; Start 08/17/16 at 21:00 Metoprolol Tartrate (Lopressor Inj) 5 mg Q6H PRN IV PUSH P > 130; Start at 18:45; Stop 08/19/16 at 21:23; Status DC Acetaminophen 1000 mg 1,000 mg ONCE ONCE IV Last administered on 08/17/16 19: 03; Start 08/17/16 at 19:00; Stop 08/17/16 at 19:01; Status DC Cefepime HCl/ Sodium Chloride (Maxipime Inj/NS Inj) 100 ml @ 200 mls/hr Q12H IV Last administered on 08/21/16 09:38; Start 08/17/16 at 22:00 Diphenhydramine HCl (Benadryl Inj) 25 mg Q6H PRN IV PUSH hives, itching; Start 08/17/16 at 22:00 Miscellaneous Information Patient in critical care unit? Ass... Q361D .XX ; Start 08/18/16 at 02:30 Chlorhexidine Gluconate (Chlorhexidine 2% Cloth) 3 pack DAILY@04 TOPICAL Last administered on 08/21/16 04:00; Start 08/18/16 at 04:00; Stop 08/22/16 at 04:01 Chlorhexidine Gluconate (Chlorhexidine 2% Cloth) 3 pack UNSCH PRN TOPICAL HYGIENIC CARE; Start 08/18/16 at 02:30; Stop 08/23/16 at 02:15 Potassium Bicarb/ Potassium Chloride 25 meq 25 meq ONCE ONCE PO Last administered on 08/19/16 10:00; Start 08/19/16 at 09:00; Stop 08/19/16 at 09:01 ; Status DC Vancomycin HCl 1000 mg/Sodium Chloride 250 ml @ 250 mls/hr ONCE ONCE IV ; Start 08/19/16 at 14:15; Stop 08/19/16 at 15:14; Status UNV Pharmacy Profile Note 0 ml @ 0 mls/hr UNSCH OTHER ; Start 08/19/16 at 14:15; Stop 08/20/16 at 13:31; Status DC Vancomycin HCl/ Sodium Chloride (Vancomycin Inj/ NS 500 ml Inj) 512.5 ml @ 250 mls/hr Q12H IV Last administered on 08/20/16 06:53; Start 08/19/16 at 16:00; Stop 08/20/16 at 11:34; Status DC Miscellaneous Information SPECIFIC LAB TO BE DRAWN:VANCOMYCIN DATE TO BE DRIngrid.. ONCE ONCE .XX ; Start 08/21/16 at 03:45; Stop 08/21/16 at 03:46; Status Cancel Diphenhydramine HCl 25 mg 25 mg ONCE ONCE PO Last administered on 08/19/16 23 :33; Start 08/19/16 at 23:15; Stop 08/19/16 at 23:16; Status DC Vancomycin HCl/ Sodium Chloride (Vancomycin Inj/ NS 250 ml Inj) 262.5 ml @ 250 mls/hr Q12H IV ; Start 08/20/16 at 16:00; Stop 08/20/16 at 16:00; Status DC Metronidazole (Flagyl) 500 mg Q8HR PO Last administered on 08/21/16 13:30; Start 08/20/16 at 14:00 Prednisone (Deltasone) 20 mg BID PO Last administered on 08/21/16 09:37; Start 08/20/16 at 21:00 Enalaprilat (Vasotec Inj) 1.25 mg Q6H PRN IV PUSH SBP>180 or DBP>100; Start at 14:00 Amlodipine Besylate (Norvasc) 5 mg DAILY PO Last administered on 08/21/16 15: 30; Start 08/21/16 at 15:00 A/P Problem List: (1) Abdominal pain ICD Code: R10.9 Status: Acute Assessment and Plan 56-year-old female with history of CBD stricture s/p ERCP with stent placement 1 week ago from admission presents with abdominal pain, nausea/ vomiting Respiratory failure with hypoxia -Occurred after ERCP/EUS - had some wheezing so started on Solu-Medrol and nebulizers. -Improved now on nasal cannula. Treatment as below. -Since clinically exam has improved weaning off os solmedrol. Symptomatic ascites: Concern for malignancy. Cytology positive for non-small cell neoplasm. No hx of Alcohol use or cirrhosis. Imaging reviewed: CT abd showed Silastic biliary stent now present and appears appropriately positioned; Decreased intrahepatic biliary distention, now mild; Increased ascites, moderate; mild to moderate body wall edema/anasarca developing; Mild enteritis/colitis possible versus reactive wall thickening from the ascites. HIDA 08/10 shows nonvisualization of the gallbladder. -Consulted gastroenterology, per Dr. Whitehead, -Surgical oncology, Dr. Wylie, consulted. Not a good surgical candidate for cholecystectomy at this time. Symptoms not c/w cholecystitis at this time. -s/p U/S guided abdominal paracentesis 08/11 removed 5L green cloudy fluid, WBC 1320, RBC 897, cytology with features consistent with a non-small cell neoplasm -tumor markers remarkable for CA-125 elevated at 338 -Ascites fluid culture negative. -Diuresis with Lasix and Aldactone for ascites -Palliative care oncology following. -Patient had repeat paracentesis done on 08/16/2016. -Patient had ERCP/EUS done today on 08/17/2016. -repeat cytology positive for non-small cell neoplasm. GI signed off. --supportive treatment with pain control and antiemetics prn. Simethicone prn. -d/w Dr. Cerna recommend diagnostic exploratory laparoscopy since no primary has been found. -d/w Dr. Wylie in regards to this and he stated will schedule procedure on Tuesday. Acute Colitis: seen on CT abdomen as above -On IV Cipro/Flagyl for gastroenterology which was d/leny -diet as tolerated per gastroenterology -Recommending eating small portions to avoid simulating pain. -GI signed off. Recent High Grade CBD Stricture: s/p ERCP with stent placement 07/31. Pathology revealed rare atypical cells present in the background of numerous glandular epithelial cells, malignancy cannot be excluded. LFTs have been trending down since stent placement. CT abd showed biliary stent appropriately positioned, decreased biliary distention, no pancreatitis. -Gastroenterology on board -Continue to monitor LFTs, stable, follow-up CMP. Sepsis: -May be secondary to aspiration pneumonia. Chest x-ray shows bilateral pleural effusion more in the left side in the right and left-sided infiltrate. -Managed by infectious disease. Patient is on cefepime and Flagyl. d/c vancomycin. -Clinically improving. Left-sided pneumonia. -See treatment as above. Hyponatremia: likely secondary to dehydration -Na 126 upon arrival -s/p IVF -Today decrease. -Most likely secondary to third spacing. Hypokalemia: Secondary to poor by mouth intake. Potassium 3.3. Replaced orally. Repeat 3.6. Magnesium within normal limits. DVT prophylaxiswith Lovenox Discharge Planning patient is scheduled for diagnostic exploratory laparoscopy by general surgery on Tue. Problem Qualifiers (1) Abdominal pain: Qualified Code: R10.11 - Right upper quadrant abdominal pain Maddie Jewell MD Aug 21, 2016 16:37
--- NOTE | 2016-08-21 19:33 | PD.ONC.PN ---
Subjective Subjective Remarks DR Jewell called me asking to see the pt as no fu after initial consult on 08/16 Chart reviewed. Pt does not speak ghanaian no family present Objective Data Date Time Temp Pulse Resp B/P Pulse Ox O2 Delivery O2 Flow Rate FiO2 08/21/16 17:00 96.8 86 16 168/90 94 08/21/16 15:17 91 Nasal Cannula 2.00 08/21/16 13:15 169/89 08/21/16 12:00 96.8 88 18 197/102 96 08/21/16 09:40 95 Nasal Cannula 3.00 32 08/21/16 09:40 83 08/21/16 09:12 94 Nasal Cannula 2.00 08/21/16 08:00 97.9 88 18 168/84 92 08/21/16 06:59 165/80 08/21/16 04:00 96.8 88 18 172/94 94 08/21/16 00:00 97.4 83 18 164/81 93 08/20/16 21:59 93 Nasal Cannula 2.00 08/20/16 21:00 82 08/20/16 21:00 95 Nasal Cannula 3.00 32 08/20/16 20:00 97.7 85 18 172/88 95 08/21/16 08/21/16 08/21/16 07:00 15:00 23:00 Intake Total 120 ml 720 ml Balance 120 ml 720 ml Result Diagram: 08/21/1603 08/21/1603 Laboratory Results Laboratory Tests Test 08/21/16 07:03 White Blood Count 15.4 TH/MM3 Red Blood Count 4.06 MIL/MM3 Hemoglobin 11.7 GM/DL Hematocrit 34.9 % Mean Corpuscular Volume 86.0 FL Mean Corpuscular Hemoglobin 28.8 PG Mean Corpuscular Hemoglobin 33.4 % Concent Red Cell Distribution Width 15.2 % Platelet Count 404 TH/MM3 Mean Platelet Volume 8.4 FL Neutrophils (%) (Auto) 88.9 % Lymphocytes (%) (Auto) 5.6 % Monocytes (%) (Auto) 5.4 % Eosinophils (%) (Auto) 0.0 % Basophils (%) (Auto) 0.1 % Neutrophils # (Auto) 13.7 TH/MM3 Lymphocytes # (Auto) 0.9 TH/MM3 Monocytes # (Auto) 0.8 TH/MM3 Eosinophils # (Auto) 0.0 TH/MM3 Basophils # (Auto) 0.0 TH/MM3 CBC Comment DIFF FINAL Differential Comment Sodium Level 132 MEQ/L Potassium Level 3.2 MEQ/L Chloride Level 93 MEQ/L Carbon Dioxide Level 29.8 MEQ/L Anion Gap 9 MEQ/L Blood Urea Nitrogen 16 MG/DL Creatinine 0.47 MG/DL Estimat Glomerular Filtration 137 ML/MIN Rate Random Glucose 151 MG/DL Calcium Level 8.4 MG/DL Administered Medications Medications (Trade) Dose Ordered Sig/Anastacio Route PRN Reason Start Time Stop Time Status Last Admin Dose Admin Sodium Chloride (NS Flush) 2 ml UNSCH PRN IV FLUSH FLUSH AFTER USING IV ACCESS 08/09/16 20:45 08/11/16 03:00 Sodium Chloride (NS Flush) 2 ml BID IV FLUSH 08/09/16 21:00 08/21/16 09:39 Hydromorphone HCl (Dilaudid Pf Inj) 0.2 mg Q4H PRN IV PUSH pain>5 08/09/16 23:45 08/17/16 09:22 Pantoprazole Sodium (Protonix) 40 mg DAILY PO 08/10/16 09:00 08/21/16 09:37 Furosemide (Lasix) 20 mg BID@,18 PO 08/13/16 15:45 08/21/16 17:57 Spironolactone (Aldactone) 25 mg BID@,18 PO 08/14/16 09:00 08/21/16 17:57 Metoprolol Tartrate 25 mg 25 mg Q12HR PO 08/17/16 21:00 08/21/16 09:38 Cefepime HCl/ Sodium Chloride (Maxipime Inj/NS Inj) 100 ml @ 200 mls/hr Q12H IV 08/17/16 22:00 08/21/16 09:38 Chlorhexidine Gluconate (Chlorhexidine 2% Cloth) 3 pack DAILY@04 TOPICAL 08/18/16 04:00 08/22/16 04:01 08/21/16 04:00 Metronidazole (Flagyl) 500 mg Q8HR PO 08/20/16 14:00 08/21/16 13:30 Prednisone (Deltasone) 20 mg BID PO 08/20/16 21:00 08/21/16 09:37 Amlodipine Besylate (Norvasc) 5 mg DAILY PO 08/21/16 15:00 08/21/16 15:30 Objective Remarks GENERAL: Well-nourished, well-developed patient. SKIN: Warm and dry. HEAD: Normocephalic. EYES: No scleral icterus. No injection or drainage. NECK: Supple, trachea midline. No JVD or lymphadenopathy. LYMPHATIC: No adenopathy. CARDIOVASCULAR: Regular rate and rhythm without murmurs. RESPIRATORY: Breath sounds equal bilaterally. No accessory muscle use. GASTROINTESTINAL: Abdomen distended. EXTREMITIES: No cyanosis, or edema. NEUROLOGICAL: No obvious focal deficit. Awake, alert, and oriented x3. 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 --Cytology showed consistency with non-small cell neoplasm. --Further imaging unable to identify source of malignant cells. --CA-125 elevated--> could be non-specific and related to some form of inflammation such as peritonitis. --Pelvic ultrasound showed--moderate amount of ascites within the pelvis,. Lack of visualization of both ovaries and No discrete mass observed. --CT chest showed bilateral mild pleural effusions left being greater on the right. 08/21 Chart reviewed. D/W DR Jewell. I recommend reconsult DR Chauhan for diagnostic laparoscopy to obtain biopsy for tissue diagnosis. I suspect she has peritoneal carcinomatosis DR Chauhan to see her again. will follow. Maykel Cerna MD Aug 21, 2016 19:33
[2016-08-21] MEDS ORDERED: TEMAZEPAM 7.5 MG CAP PO ONE (20:00)
[2016-08-22] VITALS (11 sets, daily range): BP systolic 140–166; BP diastolic 72–96; PULSE 82–95; RESP 17–24; TEMP 96.3–98.1; O2SAT 90–94
[2016-08-22] MEDS: CHLORHEXIDINE GLUCONATE 2 % 1 PACK (2 CLOTHS)(taper/protocol) TOPICAL SCH (04:00)
[2016-08-22] MEDS: metroNIDAZOLE 500 MG TAB PO SCH ×3 (05:53→21:26)
[2016-08-22] MEDS: PANTOPRAZOLE SOD 40 MG DELAYED RELEASE TAB PO SCH (07:46)
[2016-08-22] MEDS: amLODIPine BESYLATE 5 MG TAB PO SCH (07:47)
[2016-08-22] MEDS: FUROSEMIDE 20 MG TAB PO SCH ×2 (07:47→17:30)
[2016-08-22] MEDS: METOPROLOL TARTRATE 25 MG TAB PO SCH ×2 (07:47→21:26)
[2016-08-22] MEDS: predniSONE 20 MG TAB PO SCH ×2 (07:47→21:26)
[2016-08-22] MEDS: SODIUM CHLORIDE 0.9% FLUSH 10 ML FLUSH IV FLUSH SCH ×2 (07:47→21:19)
[2016-08-22] MEDS: SPIRONOLACTONE 25 MG TAB PO SCH ×2 (07:47→17:30)
--- NOTE | 2016-08-22 08:50 | HHI.PR ---
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 HIDA scan was done and it was positive. Surgery evaluated the patient and felt that there is no evidence of cholecystitis. GI evaluated the patient. Patient also underwent workup for malignancy. 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 There was no evidence of SBP. Oncology saw the patient, and ordered pelvic ultrasound which did not show any mass, CT of the chest which did not show any masses well. Her CEA 125 has been elevated. Patient was placed on Cipro and Flagyl since admission. Endoscopic ultrasound, and after the procedure she became hypoxic, and spiked a temperature of 103. She also started complaining of shortness of breath. admitted to intensive Care Unit, Improved, General Surgery planning for Laparoscopic procedure for Diagnostic purposes and Staging. seen in the room in the presence of her Brother and Sister in law, evident discomfort. No nausea, vomit or diarrhea. Objective Vital Signs Date Time Temp Pulse Resp B/P Pulse Ox O2 Delivery O2 Flow Rate FiO2 08/22/16 04:00 96.6 82 17 163/88 94 08/22/16 00:00 96.3 92 18 166/93 91 08/21/16 20:37 86 08/21/16 20:37 93 Nasal Cannula 2.00 32 08/21/16 20:00 96.9 90 20 192/92 93 08/21/16 17:00 96.8 86 16 168/90 94 08/21/16 15:17 91 Nasal Cannula 2.00 08/21/16 13:15 169/89 08/21/16 12:00 96.8 88 18 197/102 96 08/21/16 09:40 95 Nasal Cannula 3.00 32 08/21/16 09:40 83 08/21/16 09:12 94 Nasal Cannula 2.00 I/O 08/21/16 08/21/16 08/21/16 08/22/16 08/22/1630/17 07:00 15:00 23:00 07:00 15:00 23:00 Intake Total 120 ml 720 ml 240 ml 240 ml Balance 120 ml 720 ml 240 ml 240 ml Intake Oral 120 ml 720 ml 240 ml 240 ml # Voids 5 2 2 1 # Bowel Movements 1 Result Diagram: 08/21/16 0703 08/21/16 0703 Imaging Last Impressions Chest X-Ray 08/20/16 0000 Signed Impressions: Service Date/Time: Saturday, August 20, 2016 10:45 - CONCLUSION: Mild interstitial edema with consolidative changes in both bases worse on the left. Trell Souza MD FACR Cyst Biopsy Asp-Paracentesis US 08/16/16 0000 Signed Impressions: Service Date/Time: Tuesday, August 16, 2016 09:24 - CONCLUSION: Uncomplicated ultrasound guided paracentesis. Grady Wilson MD Pelvis Ultrasound 08/14/16 0000 Signed Impressions: Service Date/Time: Sunday, August 14, 2016 22:18 - CONCLUSION: 1. Moderate amount of ascites within the pelvis. 2. Lack of visualization of both ovaries. 3. No discrete mass observed. Bert Nunes Jr., MD Chest CT 08/14/16 0000 Signed Impressions: Service Date/Time: Monday, August 15, 2016 07:53 - CONCLUSION: Bilateral mild pleural effusions being greater on the right. Fadi Cordova MD Hepatobiliary Scan Nuclear Medicine 08/09/16 0000 Signed Impressions: Service Date/Time: Tuesday, August 09, 2016 20:50 - CONCLUSION: Nonvisualization of the gallbladder however the patient does have a stent in place. I reviewed the CT scan from the same day which failed to demonstrate any obvious gallbladder wall thickening. Delayed images of the gallbladder will be performed. Matt Tovar MD ADDENDUM: COMPARISON: BILIARY SCAN (HIDA), July 30, 2016, 13:41. A delayed image in anterior and right lateral projection was performed at 16 hours. There is no activity seen within the lumen of gallbladder. Since the patient has an indwelling biliary stent, absence of gallbladder visualization is nonpredictive with respect to cystic duct obstruction. Bert Brandon MD Abdomen/Pelvis CT 08/09/16 0000 Signed Impressions: Service Date/Time: Tuesday, August 09, 2016 17:46 - CONCLUSION: 1. Silastic biliary stent now present and appears appropriately positioned. Decreased intrahepatic biliary distention, now mild. No pancreatitis or other acute complication demonstrated. 2. Increased ascites, moderate. Also mild to moderate body wall edema/anasarca developing. 3. Mild enteritis/colitis possible versus reactive wall thickening from the ascites. In any event, no obstruction demonstrated. Fadi Yin MD Procedures ERCP and Stent placement Paracenteses and cytology Other Results Laboratory Tests Test 08/17/16 08/18/16 08/19/16 08/20/16 18:00 04:31 04:48 10:10 Nasal Screen MRSA (PCR) MRSA NOT DETECTED Lactic Acid Level 1.8 mmol/L Lipase 178 U/L Total Bilirubin 0.6 MG/DL Aspartate Amino Transf 21 U/L (AST/SGOT) Alanine Aminotransferase 16 U/L (ALT/SGPT) Alkaline Phosphatase 390 U/L Total Protein 7.9 GM/DL Albumin 2.2 GM/DL Stool C. difficile Toxin (PCR) NEGATIVE Stl C. difficile Toxin PRESUMPTIVE Epiderm 027 NEGATIVE Test 08/21/16 07:03 White Blood Count 15.4 TH/MM3 Red Blood Count 4.06 MIL/MM3 Hemoglobin 11.7 GM/DL Hematocrit 34.9 % Mean Corpuscular Volume 86.0 FL Mean Corpuscular Hemoglobin 28.8 PG Mean Corpuscular Hemoglobin 33.4 % Concent Red Cell Distribution Width 15.2 % Platelet Count 404 TH/MM3 Mean Platelet Volume 8.4 FL Neutrophils (%) (Auto) 88.9 % Lymphocytes (%) (Auto) 5.6 % Monocytes (%) (Auto) 5.4 % Eosinophils (%) (Auto) 0.0 % Basophils (%) (Auto) 0.1 % Neutrophils # (Auto) 13.7 TH/MM3 Lymphocytes # (Auto) 0.9 TH/MM3 Monocytes # (Auto) 0.8 TH/MM3 Eosinophils # (Auto) 0.0 TH/MM3 Basophils # (Auto) 0.0 TH/MM3 CBC Comment DIFF FINAL Differential Comment Sodium Level 132 MEQ/L Potassium Level 3.2 MEQ/L Chloride Level 93 MEQ/L Carbon Dioxide Level 29.8 MEQ/L Anion Gap 9 MEQ/L Blood Urea Nitrogen 16 MG/DL Creatinine 0.47 MG/DL Estimat Glomerular Filtration 137 ML/MIN Rate Random Glucose 151 MG/DL Calcium Level 8.4 MG/DL Objective Remarks GENERAL: Older for her age, denotes Sick and uncomfortable. SKIN: Warm and dry. HEAD: Atraumatic. Normocephalic. EYES: Pupils equal and round. ENT: No nasal bleeding or discharge. Mucous membranes pink and moist. NECK: Trachea midline. No JVD. CARDIOVASCULAR: Regular rate and rhythm. RESPIRATORY: No accessory muscle use. Clear to auscultation. Breath sounds equal bilaterally. GASTROINTESTINAL: Distended, and pain on palpation generalized. MUSCULOSKELETAL: Extremities without clubbing, cyanosis, or edema. No obvious deformities. NEUROLOGICAL: Awake and alert. No obvious cranial nerve deficits. PSYCHIATRIC: Appropriate mood and affect. Medications and IVs Current Medications Medications (Trade) Dose Ordered Sig/Anastacio Route Start Time Stop Time Status Last Admin (NS Flush) 2 ml UNSCH PRN IV FLUSH 08/09/16 20:45 08/11/16 03:00 (NS Flush) 2 ml BID IV FLUSH 08/09/16 21:00 08/22/16 07:47 (Narcan Inj) 0.4 mg UNSCH PRN IV 08/09/16 20:45 (Dilaudid Pf Inj) 0.2 mg Q4H PRN IV PUSH 08/09/16 23:45 08/17/16 09:22 (Protonix) 40 mg DAILY PO 08/10/16 09:00 08/22/16 07:46 (Mylicon Chew) 80 mg PCHS PRN CHEW 08/12/16 14:00 (Lasix) 20 mg BID@,18 PO 08/13/16 15:45 08/22/16 07:47 (Aldactone) 25 mg BID@09,18 PO 08/14/16 09:00 08/22/16 07:47 Metoprolol Tartrate 25 mg 25 mg Q12HR PO 08/17/16 21:00 08/22/16 07:47 (Maxipime Inj/NS Inj) 100 ml @ 200 mls/hr Q12H IV 08/17/16 22:00 08/21/16 21:58 (Benadryl Inj) 25 mg Q6H PRN IV PUSH 08/17/16 22:00 Miscellaneous Information Patient in critical care unit? Ass... [id number] .XX 08/18/16 02:30 (Chlorhexidine 2% Cloth) 3 pack UNSCH PRN TOPICAL 08/18/16 02:30 08/23/16 02:15 (Flagyl) 500 mg Q8HR PO 08/20/16 14:00 08/22/16 05:53 (Deltasone) 20 mg BID PO 08/20/16 21:00 08/22/16 07:47 (Vasotec Inj) 1.25 mg Q6H PRN IV PUSH 08/21/16 14:00 (Norvasc) 5 mg DAILY PO 08/21/16 15:00 08/22/16 07:47 A/P Assessment and Plan 1. Abdominal pain in a patient with history of CBD stricture status post ERCP, with stent placement one week ago, on this admission came with Abdominal pain, Nausea, and vomit. 2. Respiratory with Hypoxia, after ERCP/EUS started on Solu-Medrol and Bronchodilators, titration of steroids continue 3. 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 GI specialist following , Surgical health care specialist following, Doctor Inessa pace good symptoms of Cholecystitis, status post US guided abdominal paracentesis, removed 5 L green cloudy fluid, cytology with features consistent with a non-small cell neoplasm, CA 125 [id number] , Diuresis with Lasix and Aldactone for ascites Palliative care oncology following. Scheduled for Diagnostic Exploratory Laparoscopy by General Surgery on Tuesday. 08/25/16 4. Acute Colitis on IV Flagyl and Cefepime. 5. Sepsis CXR showed Bilateral Pleural effusion more in the left, ID specialist following, Cefepime and Flagyl, DC Vancomycin 6. Electrolyte derangement/Hyponatremia replacement performed. DVT prophylaxiswith Len Mccarthy MD Aug 22, 2016 08:50
[2016-08-22] MEDS: CEFEPIME INJ 2,000 MG in SODIUM CHLORIDE 0.9% INJ 100 ML IV SCH ×2 (11:00→21:19)
--- NOTE | 2016-08-22 11:09 | HHI.PR ---
Subjective Subjective Notes LUQ pain Objective Vitals/I&O Vital Signs Date Time Temp Pulse Resp B/P Pulse Ox O2 Delivery O2 Flow Rate FiO2 08/22/16 09:00 96.6 93 18 142/96 93 08/22/16 08:40 Nasal Cannula 2.00 08/21/16 20:37 32 Labs Date/Time Procedure Status Source Growth 08/17/16 19:10 Aerobic Blood Culture - Final Complete Blood Peripheral NO GROWTH IN 5 DAYS 08/17/16 19:10 Anaerobic Blood Culture - Final Complete Blood Peripheral NO GROWTH IN 5 DAYS 08/17/16 18:53 Urine Culture - Final Complete Urine Catheterized Urine NO GROWTH IN 48 HOURS. Abdomen: Non-distended Narrative Exam LUQ pain without peritonitis A/P Assessment and Plan 56yo female with possible malignant ascites, stable. no primary found, will likely need diagnostic/staging laparoscopy this week. will d/w family tomorrow , plan for surgery mid week Suresh Wylie MD Aug 22, 2016 11:09
[2016-08-22 12:15] LABS: HEMATOCRIT 37.7 % (35.0-46.0); MEAN CELL VOLUME 85.3 FL (80.0-100.0); MEAN CORPUSCULAR HEMOGLOBIN 27.8 PG (27.0-34.0); MEAN CORPUSCULAR HGB CONC 32.6 % (32.0-36.0); PLATELET COUNT 365 TH/MM3 (150-450); RED BLOOD COUNT 4.42 MIL/MM3 (4.00-5.30); REVIEW FLAG FINAL; WHITE BLOOD COUNT 12.9 TH/MM3 (4.0-11.0)
[2016-08-22 12:36] LABS: BICARBONATE 30.3 MEQ/L (21.0-32.0); POTASSIUM 3.5 MEQ/L (3.5-5.1)
[2016-08-22] MEDS ORDERED: POTASSIUM CHLORIDE 20 MEQ CONTROLLED RELEASE TAB PO ONE (16:45)
[2016-08-22] MEDS: SODIUM CHLORIDE 0.9% FLUSH 10 ML FLUSH IV FLUSH PRN (23:00)
[2016-08-23] VITALS (12 sets, daily range): BP systolic 132–168; BP diastolic 78–99; PULSE 20–121; RESP 16–20; TEMP 96–97.9; O2SAT 91–96
[2016-08-23] MEDS: metroNIDAZOLE 500 MG TAB PO SCH ×3 (06:11→22:08)
[2016-08-23] MEDS: SODIUM CHLORIDE 0.9% FLUSH 10 ML FLUSH IV FLUSH SCH ×2 (10:00→22:11)
[2016-08-23] MEDS: predniSONE 20 MG TAB PO SCH ×2 (10:01→22:08)
[2016-08-23] MEDS: SPIRONOLACTONE 25 MG TAB PO SCH ×2 (10:01→17:16)
[2016-08-23] MEDS: amLODIPine BESYLATE 5 MG TAB PO SCH (10:01)
[2016-08-23] MEDS: CEFEPIME INJ 2,000 MG in SODIUM CHLORIDE 0.9% INJ 100 ML IV SCH (10:02)
[2016-08-23] MEDS: FUROSEMIDE 20 MG TAB PO SCH ×2 (10:02→17:16)
[2016-08-23] MEDS: METOPROLOL TARTRATE 25 MG TAB PO SCH ×2 (10:02→22:08)
[2016-08-23] MEDS: PANTOPRAZOLE SOD 40 MG DELAYED RELEASE TAB PO SCH (10:02)
[2016-08-23] MEDS: HYDROmorphone HCL PF 1 MG/ML VIAL IV PUSH PRN (10:03)
--- NOTE | 2016-08-23 12:20 | HHI.IDPN ---
Subjective Subjective Remarks Notes reviewed D/W RN Temps normal BP ok SOB - just came from the bathroom RN states she gets anxious and SOB when her pain returns, she is due for her pain meds C/O upper abdominal pain No N/V Frequent small loose stool C Diff negative WBC better Last CXR looks better Antibiotics Cefepime Flagyl Past Medical History Recent diagnosis of high-grade common bile duct stricture, status post stent placement Diagnosed to have ascites also during her last admission Past Surgical History ERCP, and stent placement Paracenteses Allergies: Coded Allergies: Penicillin (Verified Allergy, Unknown, 08/09/16) Objective . Vital Signs Date Time Temp Pulse Resp B/P Pulse Ox O2 Delivery O2 Flow Rate FiO2 08/23/16 08:04 96.0 93 16 137/83 92 08/23/16 07:57 94 Nasal Cannula 3.00 08/23/16 04:00 96.8 102 19 160/96 94 08/23/16 00:55 88 08/23/16 00:48 121 08/22/16 23:41 98.1 91 19 140/72 93 08/22/16 21:25 Nasal Cannula 2.00 08/22/16 20:05 86 08/22/16 20:00 97.1 90 20 165/89 94 08/22/16 17:10 92 Nasal Cannula 2.00 08/22/16 16:00 97.1 85 18 144/88 92 08/22/16 08/22/16 08/23/16 15:00 23:00 07:00 Intake Total 570 ml 120 ml 590 ml Output Total 300 ml 200 ml Balance 570 ml -180 ml 390 ml Intake Oral 570 ml 120 ml 480 ml IV Total 110 ml Output Urine Total 300 ml 200 ml # Voids 3 1 # Bowel Movements 1 2 1 . Laboratory Tests Test 08/22/16 11:10 White Blood Count 12.9 TH/MM3 Red Blood Count 4.42 MIL/MM3 Hemoglobin 12.3 GM/DL Hematocrit 37.7 % Mean Corpuscular Volume 85.3 FL Mean Corpuscular Hemoglobin 27.8 PG Mean Corpuscular Hemoglobin 32.6 % Concent Red Cell Distribution Width 15.0 % Platelet Count 365 TH/MM3 Mean Platelet Volume 8.4 FL Laboratory Tests Test 08/22/16 11:10 Sodium Level 129 MEQ/L Potassium Level 3.5 MEQ/L Chloride Level 91 MEQ/L Carbon Dioxide Level 30.3 MEQ/L Anion Gap 8 MEQ/L Blood Urea Nitrogen 15 MG/DL Creatinine 0.45 MG/DL Estimat Glomerular Filtration 144 ML/MIN Rate Random Glucose 144 MG/DL Calcium Level 8.1 MG/DL Imaging Chest X-Ray 08/17/16 0000 Signed Impressions: Service Date/Time: Wednesday, August 17, 2016 17:57 - CONCLUSION: Scattered airspace disease could be layering pleural effusions greater on the left. Pulmonary edema cannot be excluded. Grady Wilson MD Cyst Biopsy Asp-Paracentesis US 08/16/16 0000 Signed Impressions: Service Date/Time: Tuesday, August 16, 2016 09:24 - CONCLUSION: Uncomplicated ultrasound guided paracentesis. Grady Wilson MD Pelvis Ultrasound 08/14/16 0000 Signed Impressions: Service Date/Time: Sunday, August 14, 2016 22:18 - CONCLUSION: 1. Moderate amount of ascites within the pelvis. 2. Lack of visualization of both ovaries. 3. No discrete mass observed. Bert Nunes Jr., MD Chest CT 08/14/16 0000 Signed Impressions: Service Date/Time: Monday, August 15, 2016 07:53 - CONCLUSION: Bilateral mild pleural effusions being greater on the right. Fadi Cordova MD Hepatobiliary Scan Nuclear Medicine 08/09/16 0000 Signed Impressions: Service Date/Time: Tuesday, August 09, 2016 20:50 - CONCLUSION: Nonvisualization of the gallbladder however the patient does have a stent in place. I reviewed the CT scan from the same day which failed to demonstrate any obvious gallbladder wall thickening. Delayed images of the gallbladder will be performed. Matt Tovar MD ADDENDUM: COMPARISON: BILIARY SCAN (HIDA), July 30, 2016, 13:41. A delayed image in anterior and right lateral projection was performed at 16 hours. There is no activity seen within the lumen of gallbladder. Since the patient has an indwelling biliary stent, absence of gallbladder visualization is nonpredictive with respect to cystic duct obstruction. Bert Brandon MD Abdomen/Pelvis CT 08/09/16 0000 Signed Impressions: Service Date/Time: Tuesday, August 09, 2016 17:46 - CONCLUSION: 1. Silastic biliary stent now present and appears appropriately positioned. Decreased intrahepatic biliary distention, now mild. No pancreatitis or other acute complication demonstrated. 2. Increased ascites, moderate. Also mild to moderate body wall edema/anasarca developing. 3. Mild enteritis/colitis possible versus reactive wall thickening from the ascites. In any event, no obstruction demonstrated. Fadi Yin MD Physical Exam GENERAL: awake and alert, not in any respiratory distress SKIN: Warm and dry. No generalized rash . HEENT: [place] conjunctivae, no petechia or hemorrhage. No scleral icterus. Moist oral mucosa. No oral thrush. NECK: Supple, nontender, no meningeal signs. CARDIOVASCULAR: Regular rate and rhythm without gallops, or rubs. Has a soft murmur heard best in the left sternal border, possibly a flow murmur. RESPIRATORY: Breath sounds equal bilaterally. Rhonchi on L, decreased both bases. GASTROINTESTINAL: Abdomen soft, with tenderness in the epigastric and RUQ. No guarding or rebound. MUSCULOSKELETAL: Extremities without clubbing, cyanosis, or edema. No calf tenderness. NEUROLOGICAL: Non-focal PSYCH: Normal affect, calm and cooperative LINE: PIV with no evidence of infection Assessment & Plan Remarks IMPRESSION Sepsis with high fevers, leukocytosis, hypoxia, post EUS, with finding of L lung infiltrates, possibly aspiration PNA - better High grade CBD, has stent, has ascites, with cytology showing possible non- small cell CA, primary? Allergy to PCN, gets rash RECOMMENDATION Change Cefepime to Levaquin Continue Flagyl Give both Abx until August 27 Surgery planning on diagnostic laparoscopy this week Monitor progress D/W RN Kristin Lindo MD August 23, 2016 12:20 Kristin Lindo MD August 23, 2016 12:20
--- NOTE | 2016-08-23 12:39 | PD.ONC.PN ---
Subjective Subjective Remarks Afebrile overnight. Patient with multiple family members at bedside. She does not want to eat lunch as she had pain in her abdomen this morning after eating breakfast. The pain has improved but she does not want it to return if she eats lunch. Objective Data Date Time Temp Pulse Resp B/P Pulse Ox O2 Delivery O2 Flow Rate FiO2 08/23/16 08:04 96.0 93 16 137/83 92 08/23/16 07:57 94 Nasal Cannula 3.00 08/23/16 04:00 96.8 102 19 160/96 94 08/23/16 00:55 88 08/23/16 00:48 121 08/22/16 23:41 98.1 91 19 140/72 93 08/22/16 21:25 Nasal Cannula 2.00 08/22/16 20:05 86 08/22/16 20:00 97.1 90 20 165/89 94 08/22/16 17:10 92 Nasal Cannula 2.00 08/22/16 16:00 97.1 85 18 144/88 92 Result Diagram: 08/22/16 1110 08/22/16 1110 Administered Medications Medications (Trade) Dose Ordered Sig/Anastacio Route PRN Reason Start Time Stop Time Status Last Admin Dose Admin Sodium Chloride (NS Flush) 2 ml UNSCH PRN IV FLUSH FLUSH AFTER USING IV ACCESS 08/09/16 20:45 08/22/16 23:00 Sodium Chloride (NS Flush) 2 ml BID IV FLUSH 08/09/16 21:00 08/23/16 10:00 Hydromorphone HCl (Dilaudid Pf Inj) 0.2 mg Q4H PRN IV PUSH pain>5 08/09/16 23:45 08/23/16 10:03 Pantoprazole Sodium (Protonix) 40 mg DAILY PO 08/10/16 09:00 08/23/16 10:02 Furosemide (Lasix) 20 mg BID@,18 PO 08/13/16 15:45 08/23/16 10:02 Spironolactone (Aldactone) 25 mg BID@09,18 PO 08/14/16 09:00 08/23/16 10:01 Metoprolol Tartrate (Lopressor) 25 mg Q12HR PO 08/17/16 21:00 08/23/16 10:02 Metronidazole (Flagyl) 500 mg Q8HR PO 08/20/16 14:00 08/27/16 23:00 08/23/16 06:11 Prednisone (Deltasone) 20 mg BID PO 08/20/16 21:00 08/23/16 10:01 Amlodipine Besylate (Norvasc) 5 mg DAILY PO 08/21/16 15:00 08/23/16 10:01 Objective Remarks GENERAL: Elderly female, lying supine in bed SKIN: Warm and dry. HEAD: Normocephalic. EYES: No injection or drainage. NECK: Supple, trachea midline. CARDIOVASCULAR: Regular rate and rhythm RESPIRATORY: Breath sounds equal bilaterally. No accessory muscle use. GASTROINTESTINAL: Abdomen distended, tender to palpation throughout. EXTREMITIES: No cyanosis, or edema. MUSCULOSKELETAL: Adequate muscle tone. 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 --Cytology showed consistency with non-small cell neoplasm. --Further imaging unable to identify source of malignant cells. --CA-125 elevated--> could be non-specific and related to some form of inflammation such as peritonitis. --Pelvic ultrasound showed--moderate amount of ascites within the pelvis,. Lack of visualization of both ovaries and No discrete mass observed. --CT chest showed bilateral mild pleural effusions left being greater on the right. --? peritoneal carcinomatosis Assessment 56 y/o female admitted with abdominal pain and distension. s/p biliary stent placement with ERCP. Oncology consulted for malignant cells found in cytology of ascitic fluid. Plan 1. exploratory lap with Dr. Wylie on Tuesday. 2. oncology will follow at a distance and await staging lap. discussed with family and patient. Adina Berger August 23, 2016 12:38
[2016-08-23] MEDS: LEVOFLOXACIN 750 MG TAB PO SCH (14:04)
--- NOTE | 2016-08-23 14:20 | HHI.PR ---
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 HIDA scan was done and it was positive. Surgery evaluated the patient and felt that there is no evidence of cholecystitis. GI evaluated the patient. Patient also underwent workup for malignancy. 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 There was no evidence of SBP. Oncology saw the patient, and ordered pelvic ultrasound which did not show any mass, CT of the chest which did not show any masses well. Her CEA 125 has been elevated. Patient was placed on Cipro and Flagyl since admission. Endoscopic ultrasound, and after the procedure she became hypoxic, and spiked a temperature of 103. She also started complaining of shortness of breath. admitted to intensive Care Unit, Improved, General Surgery planning for Laparoscopic procedure for Diagnostic purposes and Staging. 08/23: Seen in her bedroom and discussed with nurse Miss Orona the patient has no complaint even continue with abdominal discomfort awaiting final recommendations by Oncologic surgery for probable procedure day after tomorrow no nausea, vomit or diarrhea. Objective Vital Signs Date Time Temp Pulse Resp B/P Pulse Ox O2 Delivery O2 Flow Rate FiO2 08/23/16 08:04 96.0 93 16 137/83 92 08/23/16 07:57 94 Nasal Cannula 3.00 08/23/16 04:00 96.8 102 19 160/96 94 08/23/16 00:55 88 08/23/16 00:48 121 08/22/16 23:41 98.1 91 19 140/72 93 08/22/16 21:25 Nasal Cannula 2.00 08/22/16 20:05 86 08/22/16 20:00 97.1 90 20 165/89 94 08/22/16 17:10 92 Nasal Cannula 2.00 08/22/16 16:00 97.1 85 18 144/88 92 I/O 08/22/16 08/22/16 08/22/16 08/23/1608/23/17 5/1/17 07:00 15:00 23:00 07:00 15:00 23:00 Intake Total 240 ml 570 ml 120 ml 590 ml 110 ml Output Total 300 ml 200 ml 250 ml Balance 240 ml 570 ml -180 ml 390 ml -140 ml Intake Oral 240 ml 570 ml 120 ml 480 ml IV Total 110 ml 110 ml Output Urine Total 300 ml 200 ml Stool Total 250 ml # Voids 1 3 1 # Bowel Movements 1 2 1 Result Diagram: 08/22/16 1110 08/22/16 1110 Imaging Last Impressions Chest X-Ray 08/20/16 0000 Signed Impressions: Service Date/Time: Saturday, August 20, 2016 10:45 - CONCLUSION: Mild interstitial edema with consolidative changes in both bases worse on the left. Trell Souza MD FACR Cyst Biopsy Asp-Paracentesis US 08/16/16 0000 Signed Impressions: Service Date/Time: Tuesday, August 16, 2016 09:24 - CONCLUSION: Uncomplicated ultrasound guided paracentesis. Grady Wilson MD Pelvis Ultrasound 08/14/16 0000 Signed Impressions: Service Date/Time: Sunday, August 14, 2016 22:18 - CONCLUSION: 1. Moderate amount of ascites within the pelvis. 2. Lack of visualization of both ovaries. 3. No discrete mass observed. Bert Nunes Jr., MD Chest CT 08/14/16 0000 Signed Impressions: Service Date/Time: Monday, August 15, 2016 07:53 - CONCLUSION: Bilateral mild pleural effusions being greater on the right. Fadi Cordova MD Hepatobiliary Scan Nuclear Medicine 08/09/16 0000 Signed Impressions: Service Date/Time: Tuesday, August 09, 2016 20:50 - CONCLUSION: Nonvisualization of the gallbladder however the patient does have a stent in place. I reviewed the CT scan from the same day which failed to demonstrate any obvious gallbladder wall thickening. Delayed images of the gallbladder will be performed. Matt Tovar MD ADDENDUM: COMPARISON: BILIARY SCAN (HIDA), July 30, 2016, 13:41. A delayed image in anterior and right lateral projection was performed at 16 hours. There is no activity seen within the lumen of gallbladder. Since the patient has an indwelling biliary stent, absence of gallbladder visualization is nonpredictive with respect to cystic duct obstruction. Bert Brandon MD Abdomen/Pelvis CT 08/09/16 0000 Signed Impressions: Service Date/Time: Tuesday, August 09, 2016 17:46 - CONCLUSION: 1. Silastic biliary stent now present and appears appropriately positioned. Decreased intrahepatic biliary distention, now mild. No pancreatitis or other acute complication demonstrated. 2. Increased ascites, moderate. Also mild to moderate body wall edema/anasarca developing. 3. Mild enteritis/colitis possible versus reactive wall thickening from the ascites. In any event, no obstruction demonstrated. Fadi Yin MD Procedures ERCP and Stent placement Paracenteses and cytology Other Results Laboratory Tests Test 08/19/16 08/20/16 08/21/16 08/22/16 04:48 10:10 07:03 11:10 Total Bilirubin 0.6 MG/DL Aspartate Amino Transf 21 U/L (AST/SGOT) Alanine Aminotransferase 16 U/L (ALT/SGPT) Alkaline Phosphatase 390 U/L Total Protein 7.9 GM/DL Albumin 2.2 GM/DL Stool C. difficile Toxin (PCR) NEGATIVE Stl C. difficile Toxin PRESUMPTIVE Epiderm 027 NEGATIVE Neutrophils (%) (Auto) 88.9 % Lymphocytes (%) (Auto) 5.6 % Monocytes (%) (Auto) 5.4 % Eosinophils (%) (Auto) 0.0 % Basophils (%) (Auto) 0.1 % Neutrophils # (Auto) 13.7 TH/MM3 Lymphocytes # (Auto) 0.9 TH/MM3 Monocytes # (Auto) 0.8 TH/MM3 Eosinophils # (Auto) 0.0 TH/MM3 Basophils # (Auto) 0.0 TH/MM3 CBC Comment DIFF FINAL Differential Comment White Blood Count 12.9 TH/MM3 Red Blood Count 4.42 MIL/MM3 Hemoglobin 12.3 GM/DL Hematocrit 37.7 % Mean Corpuscular Volume 85.3 FL Mean Corpuscular Hemoglobin 27.8 PG Mean Corpuscular Hemoglobin 32.6 % Concent Red Cell Distribution Width 15.0 % Platelet Count 365 TH/MM3 Mean Platelet Volume 8.4 FL Sodium Level 129 MEQ/L Potassium Level 3.5 MEQ/L Chloride Level 91 MEQ/L Carbon Dioxide Level 30.3 MEQ/L Anion Gap 8 MEQ/L Blood Urea Nitrogen 15 MG/DL Creatinine 0.45 MG/DL Estimat Glomerular Filtration 144 ML/MIN Rate Random Glucose 144 MG/DL Calcium Level 8.1 MG/DL Objective Remarks GENERAL: Older for her age, denotes Sick and uncomfortable. SKIN: Warm and dry. HEAD: Atraumatic. Normocephalic. EYES: Pupils equal and round. ENT: No nasal bleeding or discharge. Mucous membranes pink and moist. NECK: Trachea midline. No JVD. CARDIOVASCULAR: Regular rate and rhythm. RESPIRATORY: No accessory muscle use. Clear to auscultation. Breath sounds equal bilaterally. GASTROINTESTINAL: Distended, and pain on palpation generalized. MUSCULOSKELETAL: Extremities without clubbing, cyanosis, or edema. No obvious deformities. NEUROLOGICAL: Awake and alert. No obvious cranial nerve deficits. PSYCHIATRIC: Appropriate mood and affect. Medications and IVs Current Medications Medications (Trade) Dose Ordered Sig/Anastacio Route Start Time Stop Time Status Last Admin (NS Flush) 2 ml UNSCH PRN IV FLUSH 08/09/16 20:45 08/22/16 23:00 (NS Flush) 2 ml BID IV FLUSH 08/09/16 21:00 08/23/16 10:00 (Narcan Inj) 0.4 mg UNSCH PRN IV 08/09/16 20:45 (Dilaudid Pf Inj) 0.2 mg Q4H PRN IV PUSH 08/09/16 23:45 08/23/16 10:03 (Protonix) 40 mg DAILY PO 08/10/16 09:00 08/23/16 10:02 (Mylicon Chew) 80 mg PCHS PRN CHEW 08/12/16 14:00 (Lasix) 20 mg BID@,18 PO 08/13/16 15:45 08/23/16 10:02 (Aldactone) 25 mg BID@09,18 PO 08/14/16 09:00 08/23/16 10:01 (Lopressor) 25 mg Q12HR PO 08/17/16 21:00 08/23/16 10:02 (Benadryl Inj) 25 mg Q6H PRN IV PUSH 08/17/16 22:00 Miscellaneous Information Patient in critical care unit? Ass... Q361D .XX 08/18/16 02:30 (Flagyl) 500 mg Q8HR PO 08/20/16 14:00 08/27/16 23:00 08/23/16 14:04 (Deltasone) 20 mg BID PO 08/20/16 21:00 08/23/16 10:01 (Vasotec Inj) 1.25 mg Q6H PRN IV PUSH 08/21/16 14:00 (Norvasc) 5 mg DAILY PO 08/21/16 15:00 08/23/16 10:01 (Levaquin) 750 mg DAILY PO 08/23/16 13:00 08/27/16 23:00 08/23/16 14:04 A/P Assessment and Plan 1. Abdominal pain in a patient with history of CBD stricture status post ERCP, with stent placement one week ago, on this admission came with Abdominal pain, Nausea, and vomit. 2. Respiratory with Hypoxia, after ERCP/EUS started on Solu-Medrol and Bronchodilators, titration of steroids continue 3. 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 Scheduled for Diagnostic Exploratory Laparoscopy by General Surgery on Tuesday. 08/25/16 4. Acute Colitis on IV Flagyl until 08/27 and Levaquin until 08/27 Cefepime discontinued today. 5. Sepsis CXR showed Bilateral Pleural effusion more in the left, ID specialist following, Cefepime until today and Flagyl and Levaquin until 08/27, Discontinued already Vancomycin. 6. Electrolyte derangement/Hyponatremia replacement performed. DVT prophylaxiswith Lovenox Discharge Planning Once cleared by specialists. Len Benz MD August 23, 2016 14:20
[2016-08-23] MEDS ORDERED: RESP: ALBUTEROL 2.5 MG/IPRATROPIUM 0.5 MG NEB (PRN) NEB (15:00)
[2016-08-23] MEDS ORDERED: METOPROLOL TARTRATE 25 MG TAB PO ONE (17:30)
[2016-08-23] MEDS ORDERED: PILL SPLITTER OTHER PRN (17:45)
[2016-08-24] VITALS (7 sets, daily range): BP systolic 119–169; BP diastolic 76–90; PULSE 81–119; RESP 16–20; TEMP 96.4–98.6; O2SAT 92–96
[2016-08-24] MEDS: metroNIDAZOLE 500 MG TAB PO SCH ×3 (05:40→22:01)
--- NOTE | 2016-08-24 07:44 | HHI.PR ---
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 HIDA scan was done and it was positive. Surgery evaluated the patient and felt that there is no evidence of cholecystitis. GI evaluated the patient. Patient also underwent workup for malignancy. 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 There was no evidence of SBP. Oncology saw the patient, and ordered pelvic ultrasound which did not show any mass, CT of the chest which did not show any masses well. Her CEA 125 has been elevated. Patient was placed on Cipro and Flagyl since admission. Endoscopic ultrasound, and after the procedure she became hypoxic, and spiked a temperature of 103. She also started complaining of shortness of breath. admitted to intensive Care Unit, Improved, General Surgery planning for Laparoscopic procedure for Diagnostic purposes and Staging. 08/23: Seen in her bedroom and discussed with nurse Miss Orona the patient has no complaint even continue with abdominal discomfort awaiting final recommendations by Oncologic surgery. 08/24: Stable in her bedroom, has some, nausea, dyspepsia, but no vomit or diarrhea, awaiting for procedure to be performed tomorrow. no other complaint. Objective Vital Signs Date Time Temp Pulse Resp B/P Pulse Ox O2 Delivery O2 Flow Rate FiO2 08/24/16 04:30 96.6 84 18 165/87 94 08/24/16 00:30 97.7 81 16 143/80 93 08/23/16 22:07 93 141/86 08/23/16 20:38 95 08/23/16 20:30 97.9 97 16 132/78 96 08/23/16 20:03 96 Nasal Cannula 3.00 08/23/16 16:00 96.6 95 18 143/86 93 08/23/16 12:00 91 Nasal Cannula 3.00 08/23/16 12:00 96.2 92 20 168/99 91 08/23/16 08:11 94 08/23/16 08:04 96.0 93 16 137/83 92 08/23/16 07:57 94 Nasal Cannula 3.00 I/O 08/23/16 08/23/16 08/23/16 08/24/16 08/24/16 08/24/16 07:00 15:00 23:00 07:00 15:00 23:00 Intake Total 590 ml 690 ml 480 ml 240 ml Output Total 200 ml 250 ml Balance 390 ml 440 ml 480 ml 240 ml Intake Oral 480 ml 580 ml 480 ml 240 ml IV Total 110 ml 110 ml Output Urine Total 200 ml Stool Total 250 ml # Voids 2 2 1 # Bowel Movements 1 2 1 Result Diagram: 08/22/16 1110 08/22/16 1110 Imaging Last Impressions Chest X-Ray 08/20/16 0000 Signed Impressions: Service Date/Time: Saturday, August 20, 2016 10:45 - CONCLUSION: Mild interstitial edema with consolidative changes in both bases worse on the left. Trell Souza MD FACR Cyst Biopsy Asp-Paracentesis US 08/16/16 0000 Signed Impressions: Service Date/Time: Tuesday, August 16, 2016 09:24 - CONCLUSION: Uncomplicated ultrasound guided paracentesis. rGady Wilson MD Pelvis Ultrasound 08/14/16 0000 Signed Impressions: Service Date/Time: Sunday, August 14, 2016 22:18 - CONCLUSION: 1. Moderate amount of ascites within the pelvis. 2. Lack of visualization of both ovaries. 3. No discrete mass observed. Bert Nunes Jr., MD Chest CT 08/14/16 0000 Signed Impressions: Service Date/Time: Monday, August 15, 2016 07:53 - CONCLUSION: Bilateral mild pleural effusions being greater on the right. Fadi Cordova MD Hepatobiliary Scan Nuclear Medicine 08/09/16 0000 Signed Impressions: Service Date/Time: Tuesday, August 09, 2016 20:50 - CONCLUSION: Nonvisualization of the gallbladder however the patient does have a stent in place. I reviewed the CT scan from the same day which failed to demonstrate any obvious gallbladder wall thickening. Delayed images of the gallbladder will be performed. Matt Tovar MD ADDENDUM: COMPARISON: BILIARY SCAN (HIDA), July 30, 2016, 13:41. A delayed image in anterior and right lateral projection was performed at 16 hours. There is no activity seen within the lumen of gallbladder. Since the patient has an indwelling biliary stent, absence of gallbladder visualization is nonpredictive with respect to cystic duct obstruction. Bert Brandon MD Abdomen/Pelvis CT 08/09/16 0000 Signed Impressions: Service Date/Time: Tuesday, August 09, 2016 17:46 - CONCLUSION: 1. Silastic biliary stent now present and appears appropriately positioned. Decreased intrahepatic biliary distention, now mild. No pancreatitis or other acute complication demonstrated. 2. Increased ascites, moderate. Also mild to moderate body wall edema/anasarca developing. 3. Mild enteritis/colitis possible versus reactive wall thickening from the ascites. In any event, no obstruction demonstrated. Fadi Yin MD Procedures ERCP and Stent placement Paracenteses and cytology Other Results Laboratory Tests Test 08/20/16 08/21/16 08/22/16 10:10 07:03 11:10 Stool C. difficile Toxin (PCR) NEGATIVE Stl C. difficile Toxin PRESUMPTIVE Epiderm 027 NEGATIVE Neutrophils (%) (Auto) 88.9 % Lymphocytes (%) (Auto) 5.6 % Monocytes (%) (Auto) 5.4 % Eosinophils (%) (Auto) 0.0 % Basophils (%) (Auto) 0.1 % Neutrophils # (Auto) 13.7 TH/MM3 Lymphocytes # (Auto) 0.9 TH/MM3 Monocytes # (Auto) 0.8 TH/MM3 Eosinophils # (Auto) 0.0 TH/MM3 Basophils # (Auto) 0.0 TH/MM3 CBC Comment DIFF FINAL Differential Comment White Blood Count 12.9 TH/MM3 Red Blood Count 4.42 MIL/MM3 Hemoglobin 12.3 GM/DL Hematocrit 37.7 % Mean Corpuscular Volume 85.3 FL Mean Corpuscular Hemoglobin 27.8 PG Mean Corpuscular Hemoglobin 32.6 % Concent Red Cell Distribution Width 15.0 % Platelet Count 365 TH/MM3 Mean Platelet Volume 8.4 FL Sodium Level 129 MEQ/L Potassium Level 3.5 MEQ/L Chloride Level 91 MEQ/L Carbon Dioxide Level 30.3 MEQ/L Anion Gap 8 MEQ/L Blood Urea Nitrogen 15 MG/DL Creatinine 0.45 MG/DL Estimat Glomerular Filtration 144 ML/MIN Rate Random Glucose 144 MG/DL Calcium Level 8.1 MG/DL Objective Remarks GENERAL: Older for her age, no distress at this time. SKIN: Warm and dry. HEAD: Atraumatic. Normocephalic. EYES: Pupils equal and round. ENT: No nasal bleeding or discharge. Mucous membranes pink and moist. NECK: Trachea midline. No JVD. CARDIOVASCULAR: Regular rate and rhythm. RESPIRATORY: No accessory muscle use. Clear to auscultation. Breath sounds equal bilaterally. GASTROINTESTINAL: Distended, and pain on palpation generalized. MUSCULOSKELETAL: Extremities without clubbing, cyanosis, or edema. No obvious deformities. NEUROLOGICAL: Awake and alert. No obvious cranial nerve deficits. PSYCHIATRIC: Appropriate mood and affect. Medications and IVs Current Medications Medications (Trade) Dose Ordered Sig/Anastacio Route Start Time Stop Time Status Last Admin (NS Flush) 2 ml UNSCH PRN IV FLUSH 08/09/16 20:45 08/22/16 23:00 (NS Flush) 2 ml BID IV FLUSH 08/09/16 21:00 08/23/16 22:11 (Narcan Inj) 0.4 mg UNSCH PRN IV 08/09/16 20:45 (Dilaudid Pf Inj) 0.2 mg Q4H PRN IV PUSH 08/09/16 23:45 08/23/16 10:03 (Protonix) 40 mg DAILY PO 08/10/16 09:00 08/23/16 10:02 (Mylicon Chew) 80 mg PCHS PRN CHEW 08/12/16 14:00 (Lasix) 20 mg BID@09,18 PO 08/13/16 15:45 08/23/16 17:16 (Aldactone) 25 mg BID@09,18 PO 08/14/16 09:00 08/23/16 17:16 (Benadryl Inj) 25 mg Q6H PRN IV PUSH 08/17/16 22:00 Miscellaneous Information Patient in critical care unit? Ass... Q361D .XX 08/18/16 02:30 (Flagyl) 500 mg Q8HR PO 08/20/16 14:00 08/27/16 23:00 08/24/16 05:40 (Deltasone) 20 mg BID PO 08/20/16 21:00 08/23/16 22:08 (Vasotec Inj) 1.25 mg Q6H PRN IV PUSH 08/21/16 14:00 (Norvasc) 5 mg DAILY PO 08/21/16 15:00 08/23/16 10:01 (Levaquin) 750 mg DAILY PO 08/23/16 13:00 08/27/16 23:00 08/23/16 14:04 (Lopressor) 12.5 mg Q12HR PO 08/23/16 21:00 08/23/16 22:08 (Pill Splitter) 1 ea UNSCH PRN OTHER 08/23/16 17:45 A/P Assessment and Plan 1. Abdominal pain in a patient with history of CBD stricture status post ERCP, with stent placement one week before this admission. came with Abdominal pain, Nausea, and vomit. 2. Respiratory with Hypoxia, after ERCP/EUS started on Solu-Medrol and Bronchodilators, titration of steroids continue 3. 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 Scheduled for Diagnostic Exploratory Laparoscopy by General Surgery on Tuesday. 08/25/16 4. Acute Colitis on IV Flagyl until 08/27 and Levaquin until 08/27 Cefepime discontinued 5. Sepsis CXR showed Bilateral Pleural effusion more in the left, ID specialist following, Cefepime until today and Flagyl and Levaquin until 08/27, Discontinued already Vancomycin. 6. Electrolyte derangement/Hyponatremia replacement performed. DVT prophylaxiswith Lovenox Discussed with patient all questions answered to the best of my abilities. Discharge Planning Once cleared by specialists. Len Benz MD August 24, 2016 07:44
[2016-08-24] MEDS: PANTOPRAZOLE SOD 40 MG DELAYED RELEASE TAB PO SCH (08:26)
[2016-08-24] MEDS: SPIRONOLACTONE 25 MG TAB PO SCH ×2 (08:26→17:23)
[2016-08-24] MEDS: METOPROLOL TARTRATE 25 MG TAB PO SCH ×2 (08:26→22:01)
[2016-08-24] MEDS: amLODIPine BESYLATE 5 MG TAB PO SCH (08:26)
[2016-08-24] MEDS: LEVOFLOXACIN 750 MG TAB PO SCH (08:27)
[2016-08-24] MEDS: predniSONE 20 MG TAB PO SCH (08:27)
[2016-08-24] MEDS: SODIUM CHLORIDE 0.9% FLUSH 10 ML FLUSH IV FLUSH SCH ×2 (08:27→22:02)
[2016-08-24] MEDS: FUROSEMIDE 20 MG TAB PO SCH ×2 (09:00→17:23)
--- NOTE | 2016-08-24 10:58 | HHI.IDPN ---
Subjective Subjective Remarks Notes reviewed D/W RN Temps normal BP ok Comfortable at rest, on nasal O2 C/O upper abdominal pain No N/V Frequent small loose stool C Diff negative WBC better Last CXR looks better Antibiotics Levaquin Flagyl Past Medical History Reviewed Allergies: Coded Allergies: Penicillin (Verified Allergy, Unknown, 08/09/16) Objective . Vital Signs Date Time Temp Pulse Resp B/P Pulse Ox O2 Delivery O2 Flow Rate FiO2 08/24/16 09:43 Nasal Cannula 3.00 32 08/24/16 08:00 98.6 90 20 169/90 92 08/24/16 04:30 96.6 84 18 165/87 94 08/24/16 00:30 97.7 81 16 143/80 93 08/23/16 22:07 93 141/86 08/23/16 20:38 95 08/23/16 20:30 97.9 97 16 132/78 96 08/23/16 20:03 96 Nasal Cannula 3.00 08/23/16 16:00 96.6 95 18 143/86 93 08/23/16 12:00 91 Nasal Cannula 3.00 08/23/16 12:00 96.2 92 20 168/99 91 08/23/16 08/23/16 08/24/16 15:00 23:00 07:00 Intake Total 690 ml 480 ml 240 ml Output Total 250 ml Balance 440 ml 480 ml 240 ml Intake Oral 580 ml 480 ml 240 ml IV Total 110 ml Stool Total 250 ml # Voids 2 2 1 # Bowel Movements 2 1 . Laboratory Tests Test 08/22/16 11:10 White Blood Count 12.9 TH/MM3 Red Blood Count 4.42 MIL/MM3 Hemoglobin 12.3 GM/DL Hematocrit 37.7 % Mean Corpuscular Volume 85.3 FL Mean Corpuscular Hemoglobin 27.8 PG Mean Corpuscular Hemoglobin 32.6 % Concent Red Cell Distribution Width 15.0 % Platelet Count 365 TH/MM3 Mean Platelet Volume 8.4 FL Laboratory Tests Test 08/22/16 11:10 Sodium Level 129 MEQ/L Potassium Level 3.5 MEQ/L Chloride Level 91 MEQ/L Carbon Dioxide Level 30.3 MEQ/L Anion Gap 8 MEQ/L Blood Urea Nitrogen 15 MG/DL Creatinine 0.45 MG/DL Estimat Glomerular Filtration 144 ML/MIN Rate Random Glucose 144 MG/DL Calcium Level 8.1 MG/DL Imaging Chest X-Ray 08/17/16 Signed Impressions: Service Date/Time: Wednesday, August 17, 2016 17:57 - CONCLUSION: Scattered airspace disease could be layering pleural effusions greater on the left. Pulmonary edema cannot be excluded. Grady Wilson MD Cyst Biopsy Asp-Paracentesis US 08/16/16 Signed Impressions: Service Date/Time: Tuesday, August 16, 2016 09:24 - CONCLUSION: Uncomplicated ultrasound guided paracentesis. Grady Wilson MD Pelvis Ultrasound 08/14/16 0000 Signed Impressions: Service Date/Time: Sunday, August 14, 2016 22:18 - CONCLUSION: 1. Moderate amount of ascites within the pelvis. 2. Lack of visualization of both ovaries. 3. No discrete mass observed. Bert Nunes Jr., MD Chest CT 08/14/16 Signed Impressions: Service Date/Time: Monday, August 15, 2016 07:53 - CONCLUSION: Bilateral mild pleural effusions being greater on the right. Fadi Cordova MD Hepatobiliary Scan Nuclear Medicine 08/09/16 Signed Impressions: Service Date/Time: Tuesday, August 09, 2016 20:50 - CONCLUSION: Nonvisualization of the gallbladder however the patient does have a stent in place. I reviewed the CT scan from the same day which failed to demonstrate any obvious gallbladder wall thickening. Delayed images of the gallbladder will be performed. Matt Tovar MD ADDENDUM: COMPARISON: BILIARY SCAN (HIDA), July 30, 2016, 13:41. A delayed image in anterior and right lateral projection was performed at 16 hours. There is no activity seen within the lumen of gallbladder. Since the patient has an indwelling biliary stent, absence of gallbladder visualization is nonpredictive with respect to cystic duct obstruction. Bert Brandon MD Abdomen/Pelvis CT 08/09/16 0000 Signed Impressions: Service Date/Time: Tuesday, August 09, 2016 17:46 - CONCLUSION: 1. Silastic biliary stent now present and appears appropriately positioned. Decreased intrahepatic biliary distention, now mild. No pancreatitis or other acute complication demonstrated. 2. Increased ascites, moderate. Also mild to moderate body wall edema/anasarca developing. 3. Mild enteritis/colitis possible versus reactive wall thickening from the ascites. In any event, no obstruction demonstrated. Fadi Yin MD Physical Exam GENERAL: awake and alert, not in any respiratory distress SKIN: Warm and dry. No generalized rash . HEENT: Aspers conjunctivae. No scleral icterus. Moist oral mucosa. No oral thrush. NECK: Supple, nontender, no meningeal signs. CARDIOVASCULAR: Regular rate and rhythm without gallops, or rubs. Has a soft murmur heard best in the left sternal border, possibly a flow murmur. RESPIRATORY: Breath sounds equal bilaterally. Rhonchi on L, decreased both bases. GASTROINTESTINAL: Abdomen soft, with tenderness in the epigastric and RUQ. No guarding or rebound. BS (+) MUSCULOSKELETAL: Extremities without clubbing, cyanosis, or edema. No calf tenderness. 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 Allergy to PCN, gets rash Leukocytosis, better RECOMMENDATION Continue Levaquin Continue Flagyl Give both Abx until August 27 - ordered in [facility] Surgery planning on diagnostic laparoscopy this week Clinically better from ID standpoint I will sign off Please reconsult if with any new ID issue or question D/W Kristin Finley MD August 24, 2016 10:58
[2016-08-24] MEDS: predniSONE 10 MG TAB PO SCH (22:01)
[2016-08-25] VITALS (11 sets, daily range): BP systolic 123–160; BP diastolic 68–91; PULSE 84–91; RESP 18–20; TEMP 97–98.2; O2SAT 91–98
[2016-08-25] MEDS ORDERED: LACTATED RINGER'S 1000 ML IV PRN (03:30)
[2016-08-25] MEDS ORDERED: CHLORHEXIDINE GLUCONATE 2 % 1 PACK (2 CLOTHS) TOPICAL PRN (03:30)
[2016-08-25] MEDS ORDERED: POVIDONE IODINE 5% (ANTISEPSIS KIT) 4 APPLICATIONS EACH NARE PRN (03:30)
[2016-08-25] MEDS ORDERED: METOPROLOL TARTRATE 25 MG TAB PO PRN (03:30)
[2016-08-25] MEDS ORDERED: SODIUM CHLORID 0.9% 500 ML IV PRN (03:30)
[2016-08-25] MEDS: metroNIDAZOLE 500 MG TAB PO SCH (05:40)
--- NOTE | 2016-08-25 08:03 | HHI.PR ---
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 HIDA scan was done and it was positive. Surgery evaluated the patient and felt that there is no evidence of cholecystitis. GI evaluated the patient. Patient also underwent workup for malignancy. 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 There was no evidence of SBP. Oncology saw the patient, and ordered pelvic ultrasound which did not show any mass, CT of the chest which did not show any masses well. Her CEA 125 has been elevated. Patient was placed on Cipro and Flagyl since admission. Endoscopic ultrasound, and after the procedure she became hypoxic, and spiked a temperature of 103. She also started complaining of shortness of breath. admitted to intensive Care Unit, Improved, General Surgery planning for Laparoscopic procedure for Diagnostic purposes and Staging. 08/23: Seen in her bedroom and discussed with nurse Miss Orona the patient has no complaint even continue with abdominal discomfort awaiting final recommendations by Oncologic surgery. 08/24: Stable in her bedroom, has some,dyspepsia, but no vomit or diarrhea, awaiting for procedure to be performed tomorrow. no other complaint. 08/25: No complaint, patient alert and oriented, happy to have the procedure later today, discussed with nurse Miss Orona. No Nausea, vomit or diarrhea. Objective Vital Signs Date Time Temp Pulse Resp B/P Pulse Ox O2 Delivery O2 Flow Rate FiO2 08/25/16 04:20 97.8 90 20 150/88 94 08/25/16 01:03 97.8 86 20 143/83 95 08/24/16 21:25 High Flow Nasal Cannula 3.00 08/24/16 20:24 96.4 103 20 119/76 96 08/24/16 20:05 104 08/24/16 20:00 Nasal Cannula 2.00 08/24/16 16:00 97.1 119 18 127/80 95 08/24/16 12:00 97.2 91 18 125/83 93 08/24/16 09:43 Nasal Cannula 3.00 32 I/O 08/24/16 08/24/16 08/24/16 08/25/16 08/25/16 08/25/16 07:00 15:00 23:00 07:00 15:00 23:00 Intake Total 240 ml 240 ml 420 ml 420 ml Output Total 1000 ml Balance 240 ml 240 ml 420 ml -580 ml Intake Oral 240 ml 240 ml 420 ml 420 ml Output Urine Total 1000 ml # Voids 1 3 2 # Bowel Movements 0 1 Result Diagram: 08/22/16 1110 08/22/16 1110 Imaging Last Impressions Chest X-Ray 08/20/16 0000 Signed Impressions: Service Date/Time: Saturday, August 20, 2016 10:45 - CONCLUSION: Mild interstitial edema with consolidative changes in both bases worse on the left. Trell Souza MD FACR Cyst Biopsy Asp-Paracentesis US 08/16/16 0000 Signed Impressions: Service Date/Time: Tuesday, August 16, 2016 09:24 - CONCLUSION: Uncomplicated ultrasound guided paracentesis. Grady Wilson MD Pelvis Ultrasound 08/14/16 0000 Signed Impressions: Service Date/Time: Sunday, August 14, 2016 22:18 - CONCLUSION: 1. Moderate amount of ascites within the pelvis. 2. Lack of visualization of both ovaries. 3. No discrete mass observed. Bert Nunes Jr., MD Chest CT 08/14/16 0000 Signed Impressions: Service Date/Time: Monday, August 15, 2016 07:53 - CONCLUSION: Bilateral mild pleural effusions being greater on the right. Fadi Cordova MD Hepatobiliary Scan Nuclear Medicine 08/09/16 0000 Signed Impressions: Service Date/Time: Tuesday, August 09, 2016 20:50 - CONCLUSION: Nonvisualization of the gallbladder however the patient does have a stent in place. I reviewed the CT scan from the same day which failed to demonstrate any obvious gallbladder wall thickening. Delayed images of the gallbladder will be performed. Matt Tovar MD ADDENDUM: COMPARISON: BILIARY SCAN (HIDA), July 30, 2016, 13:41. A delayed image in anterior and right lateral projection was performed at 16 hours. There is no activity seen within the lumen of gallbladder. Since the patient has an indwelling biliary stent, absence of gallbladder visualization is nonpredictive with respect to cystic duct obstruction. Bert Brandon MD Abdomen/Pelvis CT 08/09/16 0000 Signed Impressions: Service Date/Time: Tuesday, August 09, 2016 17:46 - CONCLUSION: 1. Silastic biliary stent now present and appears appropriately positioned. Decreased intrahepatic biliary distention, now mild. No pancreatitis or other acute complication demonstrated. 2. Increased ascites, moderate. Also mild to moderate body wall edema/anasarca developing. 3. Mild enteritis/colitis possible versus reactive wall thickening from the ascites. In any event, no obstruction demonstrated. Fadi Yin MD Procedures ERCP and Stent placement Paracenteses and cytology Other Results Laboratory Tests Test 08/21/16 08/22/16 07:03 11:10 Neutrophils (%) (Auto) 88.9 % Lymphocytes (%) (Auto) 5.6 % Monocytes (%) (Auto) 5.4 % Eosinophils (%) (Auto) 0.0 % Basophils (%) (Auto) 0.1 % Neutrophils # (Auto) 13.7 TH/MM3 Lymphocytes # (Auto) 0.9 TH/MM3 Monocytes # (Auto) 0.8 TH/MM3 Eosinophils # (Auto) 0.0 TH/MM3 Basophils # (Auto) 0.0 TH/MM3 CBC Comment DIFF FINAL Differential Comment White Blood Count 12.9 TH/MM3 Red Blood Count 4.42 MIL/MM3 Hemoglobin 12.3 GM/DL Hematocrit 37.7 % Mean Corpuscular Volume 85.3 FL Mean Corpuscular Hemoglobin 27.8 PG Mean Corpuscular Hemoglobin 32.6 % Concent Red Cell Distribution Width 15.0 % Platelet Count 365 TH/MM3 Mean Platelet Volume 8.4 FL Sodium Level 129 MEQ/L Potassium Level 3.5 MEQ/L Chloride Level 91 MEQ/L Carbon Dioxide Level 30.3 MEQ/L Anion Gap 8 MEQ/L Blood Urea Nitrogen 15 MG/DL Creatinine 0.45 MG/DL Estimat Glomerular Filtration 144 ML/MIN Rate Random Glucose 144 MG/DL Calcium Level 8.1 MG/DL Objective Remarks GENERAL: Older for her age, no distress at this time. SKIN: Warm and dry. HEAD: Atraumatic. Normocephalic. EYES: Pupils equal and round. ENT: No nasal bleeding or discharge. Mucous membranes pink and moist. NECK: Trachea midline. No JVD. CARDIOVASCULAR: Regular rate and rhythm. RESPIRATORY: No accessory muscle use. Clear to auscultation. Breath sounds equal bilaterally. GASTROINTESTINAL: Distended, and pain on palpation generalized. MUSCULOSKELETAL: Extremities without clubbing, cyanosis, or edema. No obvious deformities. NEUROLOGICAL: Awake and alert. No obvious cranial nerve deficits. PSYCHIATRIC: Appropriate mood and affect. Medications and IVs Current Medications Medications (Trade) Dose Ordered Sig/Anastacio Route Start Time Stop Time Status Last Admin (NS Flush) 2 ml UNSCH PRN IV FLUSH 08/09/16 20:45 08/22/16 23:00 (NS Flush) 2 ml BID IV FLUSH 08/09/16 21:00 08/24/16 22:02 (Narcan Inj) 0.4 mg UNSCH PRN IV 08/09/16 20:45 (Dilaudid Pf Inj) 0.2 mg Q4H PRN IV PUSH 08/09/16 23:45 08/23/16 10:03 (Protonix) 40 mg DAILY PO 08/10/16 09:00 08/24/16 08:26 (Mylicon Chew) 80 mg PCHS PRN CHEW 08/12/16 14:00 (Lasix) 20 mg BID@09,18 PO 08/13/16 15:45 08/24/16 17:23 (Aldactone) 25 mg BID@09,18 PO 08/14/16 09:00 08/24/16 17:23 (Benadryl Inj) 25 mg Q6H PRN IV PUSH 08/17/16 22:00 Miscellaneous Information Patient in critical care unit? Ass... [id number] .XX 08/18/16 02:30 (Flagyl) 500 mg Q8HR PO 08/20/16 14:00 08/27/16 23:00 08/25/16 05:40 (Vasotec Inj) 1.25 mg Q6H PRN IV PUSH 08/21/16 14:00 (Norvasc) 5 mg DAILY PO 08/21/16 15:00 08/24/16 08:26 (Levaquin) 750 mg DAILY PO 08/23/16 13:00 08/27/16 23:00 08/24/16 08:27 (Lopressor) 12.5 mg Q12HR PO 08/23/16 21:00 08/24/16 22:01 (Pill Splitter) 1 ea UNSCH PRN OTHER 08/23/16 17:45 Prednisone 10 mg 10 mg BID PO 08/24/16 21:00 08/24/16 22:01 Lactated Ringer's 1,000 ml @ 30 mls/hr Q24H PRN IV 08/25/16 03:30 08/28/16 03:29 (NS 500 ml Inj) 500 ml @ 30 mls/hr [id number] PRN IV 08/25/16 03:30 08/28/16 03:29 A/P Assessment and Plan 1. Abdominal pain in a patient with history of CBD stricture status post ERCP, with stent placement one week before this admission. came with Abdominal pain, Nausea, and vomit. 2. Respiratory with Hypoxia, after ERCP/EUS started on Solu-Medrol and Bronchodilators, titration of steroids continue 3. 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 Scheduled for Diagnostic Exploratory Laparoscopy by General Surgery later today. 4. Acute Colitis on IV Flagyl until 08/27 and Levaquin until 08/27 Cefepime discontinued 5. Sepsis CXR showed Bilateral Pleural effusion more in the left, ID specialist following, Cefepime until today and Flagyl and Levaquin until 08/27, Discontinued already Vancomycin. 6. Electrolyte derangement/Hyponatremia replacement performed. DVT prophylaxiswith Lovenox Discussed with patient all questions answered to the best of my abilities. Discharge Planning Once cleared by specialists. Len Benz MD August 25, 2016 08:03
[2016-08-25] MEDS: predniSONE 10 MG TAB PO SCH ×2 (08:36→21:41)
[2016-08-25] MEDS: amLODIPine BESYLATE 5 MG TAB PO SCH (08:36)
[2016-08-25] MEDS: LEVOFLOXACIN 750 MG TAB PO SCH (08:36)
[2016-08-25] MEDS: SPIRONOLACTONE 25 MG TAB PO SCH ×2 (08:36→17:57)
[2016-08-25] MEDS: METOPROLOL TARTRATE 25 MG TAB PO SCH ×2 (08:36→21:41)
[2016-08-25] MEDS: FUROSEMIDE 20 MG TAB PO SCH ×2 (08:36→17:57)
[2016-08-25] MEDS: SODIUM CHLORIDE 0.9% FLUSH 10 ML FLUSH IV FLUSH SCH ×2 (08:37→21:41)
[2016-08-25] MEDS: PANTOPRAZOLE SOD 40 MG DELAYED RELEASE TAB PO SCH (08:47)
[2016-08-25] MEDS ORDERED: ONDANSETRON HCL 4 MG/2 ML VIAL IV PUSH ONE (11:42)
[2016-08-25] MEDS ORDERED: NEOSTIGMINE 3 MG/3 ML SYR IV ONE (11:42)
[2016-08-25] MEDS ORDERED: PROPOFOL 200 MG/20 ML AMP IV ONE (11:42)
[2016-08-25] MEDS ORDERED: LACTATED RINGER'S 1000 ML INJ 1,000 ML IV ONE (11:42)
[2016-08-25] MEDS: HYDROmorphone HCL PF 1 MG/ML VIAL IV PUSH PRN (12:16)
[2016-08-25] MEDS: metroNIDAZOLE 500 MG INJ 100 ML IV SCH ×2 (13:30→21:41)
[2016-08-25] MEDS ORDERED: BUPIVACAINE HCL PF 0.5% 30 ML VIAL ONE (14:52)
[2016-08-25] MEDS ORDERED: BUPIVACAINE/EPINEPHRINE 0.25% PF 10 ML VIAL INFIL ONE (15:45)
[2016-08-25] MEDS ORDERED: SUGAMMADEX SODIUM 200 MG/2 ML VIAL IV PUSH ONE ×2 (15:51)
[2016-08-25] MEDS ORDERED: *morphine SULFATE 8 MG/ML PERIprocedure ONLY ONE (16:50)
--- NOTE | 2016-08-25 16:50 | HHI.PR ---
Immediate Post Op Note Procedure Date: August 25, 2016 Pre Op Diagnosis: (1) abdominal pain Post Op Diagnosis: (1) abdominal pain (2) Carcinomatosis Surgeon: [employer] Consultant(s): none Procedure: diagnostic laparoscopy, laparoscopic peritoneal biopsy Findings: carcinomatosis, no obvious primary Complications: none Specimen(s) removed: peritoneal biopsy Estimated blood loss: 10ml Anesthesia: General Drains: None IVF Patient to: PACU Patient Condition: Good Suresh Wylie MD August 25, 2016 16:50
[2016-08-26] VITALS (10 sets, daily range): BP systolic 134–156; BP diastolic 74–91; PULSE 73–89; RESP 16–18; TEMP 95.7–97.6; O2SAT 95–99
[2016-08-26] MEDS: HYDROmorphone HCL PF 1 MG/ML VIAL IV PUSH PRN ×2 (03:25→21:00)
[2016-08-26] MEDS: metroNIDAZOLE 500 MG INJ 100 ML IV SCH ×3 (05:41→21:07)
[2016-08-26 06:52] LABS: AUTOMATED NEUTROPHIL # 9.3 TH/MM3 (1.8-7.7); BASOPHIL % 0.1 % (0.0-2.0); HEMATOCRIT 36.9 % (35.0-46.0); HEMO FLAGS DIFF FINAL; LYMPH % 9.6 % (9.0-44.0); LYMPHOCYTE # 1.1 TH/MM3 (1.0-4.8); MEAN CELL VOLUME 84.3 FL (80.0-100.0); MEAN CORPUSCULAR HEMOGLOBIN 28.4 PG (27.0-34.0); MEAN CORPUSCULAR HGB CONC 33.7 % (32.0-36.0); MONO % 6.1 % (0.0-8.0); NEUT % 84.2 % (16.0-70.0); PLATELET COUNT 275 TH/MM3 (150-450); RED BLOOD COUNT 4.37 MIL/MM3 (4.00-5.30); RED CELL DISTRIBUTION WIDTH 15.4 % (11.6-17.2); WHITE BLOOD COUNT 11.1 TH/MM3 (4.0-11.0)
[2016-08-26 06:56] LABS: BICARBONATE 28.4 MEQ/L (21.0-32.0); MAGNESIUM 2.1 MG/DL (1.5-2.5); POTASSIUM 4.3 MEQ/L (3.5-5.1)
--- NOTE | 2016-08-26 08:01 | HHI.PR ---
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 HIDA scan was done and it was positive. Surgery evaluated the patient and felt that there is no evidence of cholecystitis. GI evaluated the patient. Patient also underwent workup for malignancy. 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 There was no evidence of SBP. Oncology saw the patient, and ordered pelvic ultrasound which did not show any mass, CT of the chest which did not show any masses well. Her CEA 125 has been elevated. Patient was placed on Cipro and Flagyl since admission. Endoscopic ultrasound, and after the procedure she became hypoxic, and spiked a temperature of 103. She also started complaining of shortness of breath. admitted to intensive Care Unit, Improved, General Surgery planning for Laparoscopic procedure for Diagnostic purposes and Staging. 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 No nausea, vomit or diarrhea. but is resting in bed after procedure with Venti mask Objective Vital Signs Date Time Temp Pulse Resp B/P Pulse Ox O2 Delivery O2 Flow Rate FiO2 08/26/16 06:00 96 Simple Mask 8.00 08/26/16 04:00 97.5 80 18 156/79 96 08/26/16 03:55 18 08/26/16 03:27 97 Face Tent 6.00 30 08/26/16 02:17 97 Face Tent 6.00 30 08/26/16 00:00 96.4 75 18 134/74 95 08/25/16 21:40 Face Tent 6.00 30 08/25/16 21:03 98 Face Tent 6.00 30 08/25/16 20:42 90 08/25/16 20:00 97.0 84 18 123/68 97 08/25/16 18:30 87 126/78 93 08/25/16 18:25 94 Face Tent 30 08/25/16 18:15 97.6 81 18 129/77 93 Face Tent 30 08/25/16 18:04 98 Face Tent 6.00 30 08/25/16 18:00 81 18 129/77 93 08/25/16 17:45 80 20 129/75 95 08/25/16 17:30 76 18 129/73 95 08/25/16 17:15 74 18 141/77 91 08/25/16 17:00 85 18 122/65 90 08/25/16 16:45 74 12 148/78 93 Simple Mask 6 08/25/16 16:37 97.6 74 18 152/75 92 Simple Mask 6 08/25/16 12:00 98.2 91 18 160/91 91 08/25/16 10:12 92 Nasal Cannula 3.00 08/25/16 08:47 92 Nasal Cannula 3.00 08/25/16 08:21 89 I/O 08/25/16 08/25/16 08/25/16 08/26/16 08/26/16 08/26/16 07:00 15:00 23:00 07:00 15:00 23:00 Intake Total 420 ml 0 ml 1220 ml 120 ml Output Total 1000 ml 225 ml 700 ml Balance -580 ml 0 ml 995 ml -580 ml Intake Oral 420 ml 0 ml 120 ml 120 ml Other 1100 ml Output Urine Total 1000 ml 175 ml 700 ml Estimated Blood Loss 50 ml # Voids 3 # Bowel Movements 1 1 Result Diagram: 08/26/16 0550 08/26/16 0550 Imaging Last Impressions Chest X-Ray 08/20/16 0000 Signed Impressions: Service Date/Time: Saturday, August 20, 2016 10:45 - CONCLUSION: Mild interstitial edema with consolidative changes in both bases worse on the left. Trell Souza MD FACR Cyst Biopsy Asp-Paracentesis US 08/16/16 0000 Signed Impressions: Service Date/Time: Tuesday, August 16, 2016 09:24 - CONCLUSION: Uncomplicated ultrasound guided paracentesis. Grady Wilson MD Pelvis Ultrasound 08/14/16 0000 Signed Impressions: Service Date/Time: Sunday, August 14, 2016 22:18 - CONCLUSION: 1. Moderate amount of ascites within the pelvis. 2. Lack of visualization of both ovaries. 3. No discrete mass observed. Bert Nunes Jr., MD Chest CT 08/14/16 0000 Signed Impressions: Service Date/Time: Monday, August 15, 2016 07:53 - CONCLUSION: Bilateral mild pleural effusions being greater on the right. Fadi Cordova MD Hepatobiliary Scan Nuclear Medicine 08/09/16 0000 Signed Impressions: Service Date/Time: Tuesday, August 09, 2016 20:50 - CONCLUSION: Nonvisualization of the gallbladder however the patient does have a stent in place. I reviewed the CT scan from the same day which failed to demonstrate any obvious gallbladder wall thickening. Delayed images of the gallbladder will be performed. Matt Tovar MD ADDENDUM: COMPARISON: BILIARY SCAN (HIDA), July 30, 2016, 13:41. A delayed image in anterior and right lateral projection was performed at 16 hours. There is no activity seen within the lumen of gallbladder. Since the patient has an indwelling biliary stent, absence of gallbladder visualization is nonpredictive with respect to cystic duct obstruction. Bert Brandon MD Abdomen/Pelvis CT 08/09/16 0000 Signed Impressions: Service Date/Time: Tuesday, August 09, 2016 17:46 - CONCLUSION: 1. Silastic biliary stent now present and appears appropriately positioned. Decreased intrahepatic biliary distention, now mild. No pancreatitis or other acute complication demonstrated. 2. Increased ascites, moderate. Also mild to moderate body wall edema/anasarca developing. 3. Mild enteritis/colitis possible versus reactive wall thickening from the ascites. In any event, no obstruction demonstrated. Fadi Yin MD Procedures ERCP and Stent placement Paracenteses and cytology Other Results Laboratory Tests Test 08/26/16 05:50 White Blood Count 11.1 TH/MM3 Red Blood Count 4.37 MIL/MM3 Hemoglobin 12.4 GM/DL Hematocrit 36.9 % Mean Corpuscular Volume 84.3 FL Mean Corpuscular Hemoglobin 28.4 PG Mean Corpuscular Hemoglobin 33.7 % Concent Red Cell Distribution Width 15.4 % Platelet Count 275 TH/MM3 Mean Platelet Volume 9.1 FL Neutrophils (%) (Auto) 84.2 % Lymphocytes (%) (Auto) 9.6 % Monocytes (%) (Auto) 6.1 % Eosinophils (%) (Auto) 0.0 % Basophils (%) (Auto) 0.1 % Neutrophils # (Auto) 9.3 TH/MM3 Lymphocytes # (Auto) 1.1 TH/MM3 Monocytes # (Auto) 0.7 TH/MM3 Eosinophils # (Auto) 0.0 TH/MM3 Basophils # (Auto) 0.0 TH/MM3 CBC Comment DIFF FINAL Differential Comment Sodium Level 129 MEQ/L Potassium Level 4.3 MEQ/L Chloride Level 93 MEQ/L Carbon Dioxide Level 28.4 MEQ/L Anion Gap 8 MEQ/L Blood Urea Nitrogen 16 MG/DL Creatinine 0.45 MG/DL Estimat Glomerular Filtration 144 ML/MIN Rate Random Glucose 117 MG/DL Calcium Level 8.5 MG/DL Phosphorus Level 3.2 MG/DL Magnesium Level 2.1 MG/DL Objective Remarks GENERAL: Older for her age, Mild respiratory distress. SKIN: Warm and dry. HEAD: Atraumatic. Normocephalic. EYES: Pupils equal and round. ENT: No nasal bleeding or discharge. Mucous membranes pink and moist. NECK: Trachea midline. No JVD. CARDIOVASCULAR: Regular rate and rhythm. RESPIRATORY: No accessory muscle use. Clear to auscultation. Breath sounds equal bilaterally. GASTROINTESTINAL: Distended, and pain on palpation generalized. MUSCULOSKELETAL: Extremities without clubbing, cyanosis, or edema. No obvious deformities. NEUROLOGICAL: Awake and alert. No obvious cranial nerve deficits. PSYCHIATRIC: Appropriate mood and affect. Medications and IVs Current Medications Medications (Trade) Dose Ordered Sig/Anastacio Route Start Time Stop Time Status Last Admin (NS Flush) 2 ml UNSCH PRN IV FLUSH 08/09/16 20:45 08/22/16 23:00 (NS Flush) 2 ml BID IV FLUSH 08/09/16 21:00 08/25/16 21:41 (Narcan Inj) 0.4 mg UNSCH PRN IV 08/09/16 20:45 (Dilaudid Pf Inj) 0.2 mg Q4H PRN IV PUSH 08/09/16 23:45 08/26/16 03:25 (Protonix) 40 mg DAILY PO 08/10/16 09:00 08/24/16 08:26 (Mylicon Chew) 80 mg PCHS PRN CHEW 08/12/16 14:00 (Lasix) 20 mg BID@18 PO 08/13/16 15:45 5/3/17 17:57 (Aldactone) 25 mg BID@09,18 PO 08/14/16 09:00 08/25/16 17:57 (Benadryl Inj) 25 mg Q6H PRN IV PUSH 08/17/16 22:00 Miscellaneous Information Patient in critical care unit? Ass... [id number] .XX 08/18/16 02:30 (Vasotec Inj) 1.25 mg Q6H PRN IV PUSH 08/21/16 14:00 (Norvasc) 5 mg DAILY PO 08/21/16 15:00 08/25/16 08:36 (Lopressor) 12.5 mg Q12HR PO 08/23/16 21:00 08/25/16 21:41 (Pill Splitter) 1 ea UNSCH PRN OTHER 08/23/16 17:45 Prednisone 10 mg 10 mg BID PO 08/24/16 21:00 08/25/16 21:41 Lactated Ringer's 1,000 ml @ 30 mls/hr Q24H PRN IV 08/25/16 03:30 08/28/16 03:29 Sodium Chloride 500 ml @ 30 mls/hr [id number] PRN IV 08/25/16 03:30 08/28/16 03:29 Levofloxacin/ Dextrose 150 ml @ 100 mls/hr Q24H IV 08/26/16 09:00 08/27/16 12:00 (Flagyl 500 Mg Inj) 100 ml @ 100 mls/hr Q8H IV 08/25/16 14:00 08/27/16 23:55 08/26/16 05:41 A/P Assessment and Plan 1. Abdominal pain in a patient with history of CBD stricture status post ERCP, with stent placement one week before this admission. came with Abdominal pain, Nausea, and vomit. 2. Respiratory with Hypoxia, after ERCP/EUS, continue Prednisone by mouth, at this time asked for CXR stat, Bronchodilator, Mucolytic and incentive spirometry. 3. 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 GI specialist following , Surgical applications specialist following, Doctor Inessa not good symptoms of Cholecystitis, status post US guided abdominal paracentesis, removed 5 L green cloudy fluid, cytology with features consistent with a non-small cell neoplasm, CA 125 338 , Diuresis with Lasix and Aldactone for ascites Palliative care oncology following. Status post Diagnostic Exploratory Laparoscopy found Carcinomatosis with no primary, awaiting for biopsy result. 4. Acute Colitis on IV Flagyl until 08/27 and Levaquin until 08/27 Cefepime discontinued 5. Sepsis CXR showed Bilateral Pleural effusion more in the left, ID specialist following, Cefepime until today and Flagyl and Levaquin until 08/27, Discontinued already Vancomycin. 6. Electrolyte derangement/Hyponatremia replaced and following. DVT prophylaxiswith Lovenox Discussed with patient all questions answered to the best of my abilities. Discharge Planning Once cleared by specialists. Len Benz MD August 26, 2016 08:01 Discussed with patient all questions answered to the best of my abilities. Discharge Planning Once cleared by specialists. Len Benz MD August 26, 2016 08:01
[2016-08-26] MEDS: SPIRONOLACTONE 25 MG TAB PO SCH ×2 (09:32→18:05)
[2016-08-26] MEDS: amLODIPine BESYLATE 5 MG TAB PO SCH (09:33)
[2016-08-26] MEDS: METOPROLOL TARTRATE 25 MG TAB PO SCH ×2 (09:33→20:58)
[2016-08-26] MEDS: FUROSEMIDE 20 MG TAB PO SCH ×2 (09:33→18:05)
[2016-08-26] MEDS: PANTOPRAZOLE SOD 40 MG DELAYED RELEASE TAB PO SCH (09:33)
[2016-08-26] MEDS: predniSONE 10 MG TAB PO SCH ×2 (09:33→20:59)
[2016-08-26] MEDS: LEVOFLOXACIN 750 MG PREMIX INJ 150 ML IV SCH (09:33)
[2016-08-26] MEDS: SODIUM CHLORIDE 0.9% FLUSH 10 ML FLUSH IV FLUSH SCH ×2 (09:34→20:57)
--- NOTE | 2016-08-26 12:53 | HHI.PR ---
Subjective Subjective Notes Resting in bed No complaints Objective Vitals/I&O Vital Signs Date Time Temp Pulse Resp B/P Pulse Ox O2 Delivery O2 Flow Rate FiO2 08/26/16 11:08 96 Simple Mask 8.00 08/26/16 09:40 30 08/26/16 08:00 95.7 73 16 139/81 Labs Laboratory Tests Test 08/26/16 05:50 White Blood Count 11.1 Red Blood Count 4.37 Hemoglobin 12.4 Hematocrit 36.9 Mean Corpuscular Volume 84.3 Mean Corpuscular Hemoglobin 28.4 Mean Corpuscular Hemoglobin 33.7 Concent Red Cell Distribution Width 15.4 Platelet Count 275 Mean Platelet Volume 9.1 Neutrophils (%) (Auto) 84.2 Lymphocytes (%) (Auto) 9.6 Monocytes (%) (Auto) 6.1 Eosinophils (%) (Auto) 0.0 Basophils (%) (Auto) 0.1 Neutrophils # (Auto) 9.3 Lymphocytes # (Auto) 1.1 Monocytes # (Auto) 0.7 Eosinophils # (Auto) 0.0 Basophils # (Auto) 0.0 CBC Comment DIFF FINAL Differential Comment Sodium Level 129 Potassium Level 4.3 Chloride Level 93 Carbon Dioxide Level 28.4 Anion Gap 8 Blood Urea Nitrogen 16 Creatinine 0.45 Estimat Glomerular Filtration 144 Rate Random Glucose 117 Calcium Level 8.5 Phosphorus Level 3.2 Magnesium Level 2.1 Cardiovascular: Regular Lungs: Clear Abdomen: Other (lap sites c/d/i with Dermabond in place; abdomen soft; post op tenderness with palpation ) Extremities: No edema A/P Assessment and Plan 56 year old female with history of high grade stricture of the CBD; hepatic dysfunction; s/p MRCP and ERCP with stent placement -POD1 dx lap; lap peritoneal biopsy -Regular diet -On simple mask for O2 -Await pathology results Attending Statement The exam, history, and the medical decision-making described in the above note were completed with the assistance of the mid-level provider. I reviewed and agree with the findings presented. I attest that I had a [id number] encounter with the patient on the same day, and personally performed and documented my assessment and findings in the medical record. Abdominal exam stable, postop tenderness on exam await final pathology, medical oncology aware Melissa Colón [facility] August 26, 2016 12:53 Suresh Wylie MD September 21, 2016 16:05
--- NOTE | 2016-08-26 17:25 | RADRPT ---
EXAM DATE/TIME: 08/26/2016 16:44 [place] COMPARISON: CHEST PA & LAT, August 20, 2016, 10:45. INDICATIONS : Shortness of breath. MEDICAL HISTORY : Cardiovascular disease. SURGICAL HISTORY : Cardiac stents ENCOUNTER: Subsequent ACUITY: 4 - 6 days PAIN SCORE: 0/10 LOCATION: Bilateral chest FINDINGS: Small moderate effusions with mild bibasilar consolidation noted, both sides slightly worse in the in terim. No pneumothorax. Heart size stable, within normal limits. CONCLUSION: Modest worsening of bilateral effusions and basilar consolidation. The pleural effusions are currentl y small to moderate in size. Fadi Yin MD on August 26, 2016 at 17:22 Board Certified Radiologist. This report was verified electronically.
[2016-08-26] MEDS: RESP: BUDESONIDE 0.5 MG/2 ML NEB NEB SCH (20:00)
--- NOTE | 2016-08-26 20:07 | MP ---
cc: REYNA GRANDA DATE OF SURGERY: 08/25/2016. 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 POSTOPERATIVE DIAGNOSIS: Likely carcinomatosis. OPERATIVE PROCEDURE PERFORMED: 1. Diagnostic and staging laparoscopies 2. Peritoneal biopsy. ATTENDING SURGEON: Reyna Granda M.D. MEDICAL ADMINISTRATOR: Staff. ANESTHESIA: General. ESTIMATED BLOOD LOSS: 10 cc. COMPLICATIONS: None. FINDINGS: Diffuse white plaques of the abdominal cavity and bowel as well as all visceral surfaces concerning for advanced diffuse carcinomatosis. INDICATIONS FOR THE PROCEDURE: The patient is a 56-year-old female who developed increasing abdominal pain and ascites. The patient had previously undergone a stent placement for what was thought to be a non-malignant stricture at the biliary system. The patient did undergo two paracenteses, which did reveal potential malignant cells. Surgical oncology was asked to evaluate the patient and consider diagnostic laparoscopy for tissue diagnosis. The risks, benefits, and alternatives to the procedure were discussed with the patient and her family in detail prior to procedure. All questions were answered to their satisfaction and they agreed to undergo the procedure. DESCRIPTION OF THE PROCEDURE IN DETAIL: Informed consent was obtained. The patient was taken to the operating room and placed in a supine position and placed under general anesthesia. The patient was prepped and draped in the usual sterile fashion. Time-out was performed. The abdomen was entered in the Urban technique just above the umbilicus with an 11 blade scalpel. We directly opened the fascia with an 11 blade scalpel and spread this with a hemostat until we entered the abdominal cavity. We were greeted with some a yellow type ascites. We placed a 10-mm balloon trocar into this site and insufflated the abdomen and surveyed the abdomen. There was some ascites and diffuse white plaques across the visceral and parietal peritoneum concerning for advanced carcinomatosis. Some attempt was made to identify a primary site. There was no obvious primary site as the liver, stomach, small bowel and colon were all essentially fused due to the large volume of dense plaques. We placed a 5-mm port in the left upper quadrant under visualization of the laparoscope through our 10-mm port. We did suction out some ascites and we took multiple biopsies from the area of the falciform ligament which appeared to be the thickest area of these plaques as well as the safest for risk of bleeding, et cetera. These were taken down with the scissors and cautery was used at the site for hemostasis after the cold biopsies. These were sent for permanent processing. At this point time, we entered the abdomen. There was no obvious tumor primary and it was felt like there was no further benefit we could offer the patient and therefore we terminated the operation. We removed all ports under visualization of the laparoscope and expressed the pneumoperitoneum. We closed the Urban type closure with a [id number] Vicryl suture in the fascia. We closed Mara's fascia as well with a Vicryl as well. We then also closed the skin with 4-0 Monocryl and Dermabond. At this point in time, we discontinued the anesthesia. The patient was taken to the post-anesthesia care unit in stable condition. The patient tolerated the procedure well. No apparent complications. All counts were correct. I was present and scrubbed for the entire procedure. Findings intraoperatively were discussed with the family in the waiting room as well as with Dr. Stern. MD SURAJ Solorio/CORRINA /4:29 PM /7:55 PM
[2016-08-26] MEDS: RESP: IPRATROPIUM 0.5 MG/2.5 ML NEB NEB SCH ×2 (20:56→23:21)
[2016-08-26] MEDS: guaiFENesin E.R. 600 MG TAB PO SCH (21:07)
[2016-08-27] VITALS (10 sets, daily range): BP systolic 136–150; BP diastolic 74–88; PULSE 77–90; RESP 16–20; TEMP 96.4–98; O2SAT 93–97
[2016-08-27] MEDS: RESP: IPRATROPIUM 0.5 MG/2.5 ML NEB NEB SCH ×4 (03:23→15:28)
[2016-08-27] MEDS: HYDROmorphone HCL PF 1 MG/ML VIAL IV PUSH PRN ×4 (03:46→22:10)
[2016-08-27] MEDS: metroNIDAZOLE 500 MG INJ 100 ML IV SCH ×3 (05:36→22:11)
[2016-08-27] MEDS: RESP: BUDESONIDE 0.5 MG/2 ML NEB NEB SCH ×2 (08:00→20:31)
--- NOTE | 2016-08-27 08:32 | HHI.PR ---
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 HIDA scan was done and it was positive. Surgery evaluated the patient and felt that there is no evidence of cholecystitis. GI evaluated the patient. Patient also underwent workup for malignancy. 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 There was no evidence of SBP. Oncology saw the patient, and ordered pelvic ultrasound which did not show any mass, CT of the chest which did not show any masses well. Her CEA 125 has been elevated. Patient was placed on Cipro and Flagyl since admission. Endoscopic ultrasound, and after the procedure she became hypoxic, and spiked a temperature of 103. She also started complaining of shortness of breath. admitted to intensive Care Unit, Improved, General Surgery planning for Laparoscopic procedure for Diagnostic purposes and Staging. 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 08/27: Seen in her bedroom in the presence of nurse Miss Broussard appreciated, patient with mild to moderate abdominal pain no nausea, vomit or diarrhea, Oncologic Surgery following. Objective Vital Signs Date Time Temp Pulse Resp B/P Pulse Ox O2 Delivery O2 Flow Rate FiO2 08/27/16 04:33 96.5 79 16 143/83 96 08/27/16 04:16 18 08/27/16 03:25 Nasal Cannula 6.00 08/27/16 03:25 97 Nasal Cannula 6.00 08/27/16 00:11 96.4 78 16 148/80 93 08/26/16 20:57 Simple Mask 8.00 30 08/26/16 20:56 Simple Mask 8.00 08/26/16 20:40 96.7 76 18 152/88 97 08/26/16 20:03 89 08/26/16 16:00 95.9 82 18 135/79 99 08/26/16 12:00 97.6 87 18 151/91 97 08/26/16 11:08 96 Simple Mask 8.00 08/26/16 09:40 Simple Mask 8.00 30 I/O 08/26/16 08/26/16 08/26/16 08/27/16 08/27/16 08/27/16 07:00 15:00 23:00 07:00 15:00 23:00 Intake Total 120 ml 910 ml 150 ml 440 ml Output Total 700 ml 300 ml 500 ml Balance -580 ml 910 ml -150 ml -60 ml Intake Oral 120 ml 480 ml 150 ml 200 ml IV Total 430 ml 240 ml Output Urine Total 700 ml 300 ml 500 ml # Voids 2 # Bowel Movements 1 0 0 Result Diagram: 08/26/16 0550 08/26/16 0550 Imaging Last Impressions Chest X-Ray 08/26/16 0000 Signed Impressions: Service Date/Time: August 16:44 - CONCLUSION: Modest worsening of bilateral effusions and basilar consolidation. The pleural effusions are currently small to moderate in size. Fadi Yin MD Cyst Biopsy Asp-Paracentesis US 08/16/16 0000 Signed Impressions: Service Date/Time: Tuesday, August 16, 2016 09:24 - CONCLUSION: Uncomplicated ultrasound guided paracentesis. Grady Wilson MD Pelvis Ultrasound 08/14/16 0000 Signed Impressions: Service Date/Time: Sunday, August 14, 2016 22:18 - CONCLUSION: 1. Moderate amount of ascites within the pelvis. 2. Lack of visualization of both ovaries. 3. No discrete mass observed. Bert Nunes Jr., MD Chest CT 08/14/16 0000 Signed Impressions: Service Date/Time: Monday, August 15, 2016 07:53 - CONCLUSION: Bilateral mild pleural effusions being greater on the right. Fadi Cordova MD Hepatobiliary Scan Nuclear Medicine 08/09/16 0000 Signed Impressions: Service Date/Time: Tuesday, August 09, 2016 20:50 - CONCLUSION: Nonvisualization of the gallbladder however the patient does have a stent in place. I reviewed the CT scan from the same day which failed to demonstrate any obvious gallbladder wall thickening. Delayed images of the gallbladder will be performed. Matt Tovar MD ADDENDUM: COMPARISON: BILIARY SCAN (HIDA), July 30, 2016, 13:41. A delayed image in anterior and right lateral projection was performed at 16 hours. There is no activity seen within the lumen of gallbladder. Since the patient has an indwelling biliary stent, absence of gallbladder visualization is nonpredictive with respect to cystic duct obstruction. Bert Brandon MD Abdomen/Pelvis CT 08/09/16 0000 Signed Impressions: Service Date/Time: Tuesday, August 09, 2016 17:46 - CONCLUSION: 1. Silastic biliary stent now present and appears appropriately positioned. Decreased intrahepatic biliary distention, now mild. No pancreatitis or other acute complication demonstrated. 2. Increased ascites, moderate. Also mild to moderate body wall edema/anasarca developing. 3. Mild enteritis/colitis possible versus reactive wall thickening from the ascites. In any event, no obstruction demonstrated. Fadi Yin MD Procedures ERCP and Stent placement Paracenteses and cytology Other Results Laboratory Tests Test 08/26/16 05:50 White Blood Count 11.1 TH/MM3 Red Blood Count 4.37 MIL/MM3 Hemoglobin 12.4 GM/DL Hematocrit 36.9 % Mean Corpuscular Volume 84.3 FL Mean Corpuscular Hemoglobin 28.4 PG Mean Corpuscular Hemoglobin 33.7 % Concent Red Cell Distribution Width 15.4 % Platelet Count 275 TH/MM3 Mean Platelet Volume 9.1 FL Neutrophils (%) (Auto) 84.2 % Lymphocytes (%) (Auto) 9.6 % Monocytes (%) (Auto) 6.1 % Eosinophils (%) (Auto) 0.0 % Basophils (%) (Auto) 0.1 % Neutrophils # (Auto) 9.3 TH/MM3 Lymphocytes # (Auto) 1.1 TH/MM3 Monocytes # (Auto) 0.7 TH/MM3 Eosinophils # (Auto) 0.0 TH/MM3 Basophils # (Auto) 0.0 TH/MM3 CBC Comment DIFF FINAL Differential Comment Sodium Level 129 MEQ/L Potassium Level 4.3 MEQ/L Chloride Level 93 MEQ/L Carbon Dioxide Level 28.4 MEQ/L Anion Gap 8 MEQ/L Blood Urea Nitrogen 16 MG/DL Creatinine 0.45 MG/DL Estimat Glomerular Filtration 144 ML/MIN Rate Random Glucose 117 MG/DL Calcium Level 8.5 MG/DL Phosphorus Level 3.2 MG/DL Magnesium Level 2.1 MG/DL Objective Remarks GENERAL: Older for her age, Mild respiratory distress. SKIN: Warm and dry. HEAD: Atraumatic. Normocephalic. EYES: Pupils equal and round. ENT: No nasal bleeding or discharge. Mucous membranes pink and moist. NECK: Trachea midline. No JVD. CARDIOVASCULAR: Regular rate and rhythm. RESPIRATORY: No accessory muscle use. Clear to auscultation. Breath sounds equal bilaterally. GASTROINTESTINAL: Distended, and pain on palpation generalized. MUSCULOSKELETAL: Extremities without clubbing, cyanosis, or edema. No obvious deformities. NEUROLOGICAL: Awake and alert. No obvious cranial nerve deficits. PSYCHIATRIC: Appropriate mood and affect. Medications and IVs Current Medications Medications (Trade) Dose Ordered Sig/Anastacio Route Start Time Stop Time Status Last Admin (NS Flush) 2 ml UNSCH PRN IV FLUSH 08/09/16 20:45 08/22/16 23:00 (NS Flush) 2 ml BID IV FLUSH 08/09/16 21:00 08/26/16 20:57 (Narcan Inj) 0.4 mg UNSCH PRN IV 08/09/16 20:45 (Dilaudid Pf Inj) 0.2 mg Q4H PRN IV PUSH 08/09/16 23:45 08/27/16 03:46 (Protonix) 40 mg DAILY PO 08/10/16 09:00 08/26/16 09:33 (Mylicon Chew) 80 mg PCHS PRN CHEW 08/12/16 14:00 (Lasix) 20 mg BID@09,18 PO 08/13/16 15:45 08/26/16 18:05 (Aldactone) 25 mg BID@09,18 PO 08/14/16 09:00 08/26/16 18:05 (Benadryl Inj) 25 mg Q6H PRN IV PUSH 08/17/16 22:00 Miscellaneous Information Patient in critical care unit? Ass... [id number] .XX 08/18/16 02:30 (Vasotec Inj) 1.25 mg Q6H PRN IV PUSH 08/21/16 14:00 (Norvasc) 5 mg DAILY PO 08/21/16 15:00 08/26/16 09:33 (Lopressor) 12.5 mg Q12HR PO 08/23/16 21:00 08/26/16 20:58 (Pill Splitter) 1 ea UNSCH PRN OTHER 08/23/16 17:45 Prednisone 10 mg 10 mg BID PO 08/24/16 21:00 08/26/16 20:59 Lactated Ringer's 1,000 ml @ 30 mls/hr Q24H PRN IV 08/25/16 03:30 08/28/16 03:29 Sodium Chloride 500 ml @ 30 mls/hr [id number] PRN IV 08/25/16 03:30 08/28/16 03:29 Levofloxacin/ Dextrose 150 ml @ 100 mls/hr Q24H IV 08/26/16 09:00 08/27/16 12:00 08/26/16 09:33 (Flagyl 500 Mg Inj) 100 ml @ 100 mls/hr Q8H IV 08/25/16 14:00 08/27/16 23:55 08/27/16 05:36 (Mucinex Er) 600 mg BID PO 08/26/16 21:00 08/26/16 21:07 A/P Assessment and Plan 1. Abdominal pain in a patient with history of CBD stricture status post ERCP, with stent placement one week before this admission. came with Abdominal pain, Nausea, and vomit. 2. Respiratory with Hypoxia, after ERCP/EUS, continue Prednisone by mouth, at this time asked for CXR stat, Bronchodilator, Mucolytic and incentive spirometry. 3. 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 GI specialist following , Surgical risk control specialist following, Doctor Inessa dubon symptoms of Cholecystitis, status post US guided abdominal paracentesis, removed 5 L green cloudy fluid, cytology with features consistent with a non-small cell neoplasm, CA 125 338 , Diuresis with Lasix and Aldactone for ascites Palliative care oncology following. Status post Diagnostic Exploratory Laparoscopy found Carcinomatosis with no primary, awaiting for biopsy result. 4. Acute Colitis on IV Flagyl until 08/27 and Levaquin until 08/27 Cefepime discontinued by ID specialist 5. Sepsis CXR showed Bilateral Pleural effusion more in the left, ID specialist following, Cefepime, Flagyl and Levaquin finished today. was on Vancomycin. 6. Electrolyte derangement/Hyponatremia replaced and following. DVT prophylaxiswith Lovenox Discussed with patient all questions answered to the best of my abilities. Discharge Planning Once cleared by specialists. Len Benz MD August 27, 2016 08:32 Len Benz MD August 27, 2016 08:32
[2016-08-27] MEDS: FUROSEMIDE 20 MG TAB PO SCH ×2 (09:23→17:40)
[2016-08-27] MEDS: PANTOPRAZOLE SOD 40 MG DELAYED RELEASE TAB PO SCH (09:23)
[2016-08-27] MEDS: guaiFENesin E.R. 600 MG TAB PO SCH ×2 (09:23→22:12)
[2016-08-27] MEDS: METOPROLOL TARTRATE 25 MG TAB PO SCH ×2 (09:23→22:13)
[2016-08-27] MEDS: amLODIPine BESYLATE 5 MG TAB PO SCH (09:23)
[2016-08-27] MEDS: LEVOFLOXACIN 750 MG PREMIX INJ 150 ML IV SCH (09:23)
[2016-08-27] MEDS: predniSONE 10 MG TAB PO SCH ×2 (09:23→22:12)
[2016-08-27] MEDS: SPIRONOLACTONE 25 MG TAB PO SCH ×2 (09:23→17:40)
[2016-08-27] MEDS: SODIUM CHLORIDE 0.9% FLUSH 10 ML FLUSH IV FLUSH SCH ×2 (09:24→22:11)
--- NOTE | 2016-08-27 10:57 | HHI.PR ---
Subjective Subjective Notes resting Objective Vitals/I&O Vital Signs Date Time Temp Pulse Resp B/P Pulse Ox O2 Delivery O2 Flow Rate FiO2 08/27/16 08:00 97.8 77 18 150/88 96 08/27/16 03:25 Nasal Cannula 6.00 08/26/16 20:57 30 Abdomen: Non-distended, Post-op tenderness Narrative Exam incisions c/d/i A/P Assessment and Plan 56yo female with carcinomatosis, path pending. - ok for diet as tolerated, activity as tolerated, ok to shower today - follow up with surgery PRN - will need palliation, possible treatment, will defer to med onc for further management - will sign off, call if needed Suresh Wylie MD August 27, 2016 10:57
--- NOTE | 2016-08-27 15:43 | HHI.HCPN ---
Reason for visit a. To assist with evaluation and management of symptoms including: Pain b. To assist medical decision maker(s) with: better understanding of current medical conditions; weighing benefits/burdens of medical treatment options; making medical treatment decisions. . (Jamilah Dhillon) Subjective/Interval History Patient seen in her room. Patient is Cymro speaker, no full time paramedic needed or required as we both speak fluent Cymro. Patient resting in bed in no acute distress. Endorsing abdominal pain at surgical sites. Patient status 2 days post diagnostic lap with peritoneal biopsy. Pain exacerbated by movement or exertion and alleviated with rest and pain medication. Endorsing mild dyspnea on exertion, currently on oxygen via nasal cannula at 4 L. No nausea or vomiting today. No family at bedside. Last laboratory data 08/26/16 WBC 11.1, Hgb 12.4, platelet count 275. Sodium 129, potassium 4.3, BUN/creatinine 16/ 0.45. Cytology 08/11/16 and 08/16/16 of peritoneal fluid suspicious for malignancy. Pending peritoneal biopsy results. Chest x-ray 08/26/16 revealing worsening of bilateral effusions and basilar consolidation. The pleural effusions are currently small to moderate in size. Patient afebrile, with dynamically stable. Patient tells me that she is aware of likelihood of her having abdominal cancer. She is aware that final pathology is pending for confirmation of diagnosis and treatment plan. Patient's goals of care remains unchanged, she wishes to pursue treatment options offered with hopes of prolongation of survival. Patient's main goal [place] to spend time with her elderly mother, 2 children and 2 grandchildren. Patient reiterated her strong shayne belief in hopes for a miracle. Extensive active listening provided, patient verbalized appreciation for my visit today. Ongoing emotional support provided. . Family/friend interactions No family at bedside. . (Jamilah Dhillon) Advance Directives Living Will: Never completed Health Care Surrogate: Copy in medical record Durable Power of Manager Core: Never completed (Jamilah Dhillon) Advance Directive Specifics Date completed: 08/16/16. . Health Care Surrogate(s): Patient's brother Duran Hong, alternate Edgard Hong and Shaye Hong. . Documented care wishes: No living will completed. Patient declined completion at this time. . Significant change in goals: Goals remain unchanged. Full code. Continue current management, pending final pathology. . (Jamilah Dhillon) Objective Vital Signs Date Time Temp Pulse Resp B/P Pulse Ox O2 Delivery O2 Flow Rate FiO2 08/27/16 12:00 97.1 82 136/74 96 08/27/16 11:32 96 Nasal Cannula 3.00 08/27/16 11:18 Nasal Cannula 6.00 08/27/16 08:00 90 08/27/16 08:00 97.8 77 18 150/88 96 08/27/16 04:33 96.5 79 16 143/83 96 08/27/16 04:16 18 08/27/16 03:25 Nasal Cannula 6.00 08/27/16 03:25 97 Nasal Cannula 6.00 08/27/16 00:11 96.4 78 16 148/80 93 08/26/16 20:57 Simple Mask 8.00 30 08/26/16 20:56 Simple Mask 8.00 08/26/16 20:40 96.7 76 18 152/88 97 08/26/16 20:03 89 08/26/16 16:00 95.9 82 18 135/79 99 Intake & Output 08/27/16 08/27/16 07:00 19:00 Intake Total 590 ml 180 ml Output Total 800 ml 500 ml Balance -210 ml -320 ml Intake Oral 350 ml 180 ml IV Total 240 ml Output Urine Total 800 ml 500 ml # Voids 2 # Bowel Movements 0 Physical Exam CONSTITUTIONAL/GENERAL: This is an adequately nourished patient, in no apparent distress. Pleasant. TUBES/LINES/DRAINS: Peripheral IV SKIN: No jaundice, rashes, or lesions. Ecchymoses on upper extremities. No wounds seen anteriorly. Skin temperature appropriate. Not diaphoretic. Surgical incisions 3 to abdomen status post diagnostic lap. Incisions are closed, dry and clean. HEAD: Atraumatic. Normocephalic. EYES: Pupils equal and round and reactive. Extraocular motions intact. No scleral icterus. No injection or drainage. ENT: Hearing grossly normal. Nose without bleeding or purulent drainage. Throat without visible erythema, exudates, masses, or lesions. NECK: Trachea midline. Supple, nontender. CARDIOVASCULAR: Regular rate and rhythm without murmurs, gallops, or rubs. No JVD. Peripheral pulses symmetric. RESPIRATORY/CHEST: Symmetric, unlabored respirations. Clear to auscultation. Breath sounds equal bilaterally. No wheezes, rales, or rhonchi. GASTROINTESTINAL: Abdomen soft, but moderately distended. No guarding, generalized tenderness. Bowel sounds present. GENITOURINARY: Without palpable bladder distension. MUSCULOSKELETAL: Extremities without clubbing, cyanosis, or edema. NEUROLOGICAL: Awake and alert. Motor and sensory grossly within normal limits. Follows commands. Cognitively sharp. Moves all extremities. PSYCHIATRIC: No obvious anxiety/depression. no apparent hallucinations or other psychotic thought process. . (Jamilah Dhillon) Diagnostic Tests Laboratory Laboratory Tests Test 08/26/16 05:50 White Blood Count 11.1 TH/MM3 (4.0-11.0) Red Blood Count 4.37 MIL/MM3 (4.00-5.30) Hemoglobin 12.4 GM/DL (11.6-15.3) Hematocrit 36.9 % (35.0-46.0) Mean Corpuscular Volume 84.3 FL (80.0-100.0) Mean Corpuscular Hemoglobin 28.4 PG (27.0-34.0) Mean Corpuscular Hemoglobin 33.7 % Concent (32.0-36.0) Red Cell Distribution Width 15.4 % (11.6-17.2) Platelet Count 275 TH/MM3 (150-450) Mean Platelet Volume 9.1 FL (7.0-11.0) Neutrophils (%) (Auto) 84.2 % (16.0-70.0) Lymphocytes (%) (Auto) 9.6 % (9.0-44.0) Monocytes (%) (Auto) 6.1 % (0.0-8.0) Eosinophils (%) (Auto) 0.0 % (0.0-4.0) Basophils (%) (Auto) 0.1 % (0.0-2.0) Neutrophils # (Auto) 9.3 TH/MM3 (1.8-7.7) Lymphocytes # (Auto) 1.1 TH/MM3 (1.0-4.8) Monocytes # (Auto) 0.7 TH/MM3 (0-0.9) Eosinophils # (Auto) 0.0 TH/MM3 (0-0.4) Basophils # (Auto) 0.0 TH/MM3 (0-0.2) CBC Comment DIFF FINAL Differential Comment Sodium Level 129 MEQ/L (136-145) Potassium Level 4.3 MEQ/L (3.5-5.1) Chloride Level 93 MEQ/L (98-107) Carbon Dioxide Level 28.4 MEQ/L (21.0-32.0) Anion Gap 8 MEQ/L (5-15) Blood Urea Nitrogen 16 MG/DL (7-18) Creatinine 0.45 MG/DL (0.50-1.00) Estimat Glomerular Filtration 144 ML/MIN Rate (>89) Random Glucose 117 MG/DL (74-106) Calcium Level 8.5 MG/DL (8.5-10.1) Phosphorus Level 3.2 MG/DL (2.5-4.9) Magnesium Level 2.1 MG/DL (1.5-2.5) (Jamilah Dhillon [facility]) Result Diagram: 08/26/16 0550 08/26/16 0550 Imaging Last Impressions Chest X-Ray 08/26/16 0000 Signed Impressions: Service Date/Time: August 16:44 - CONCLUSION: Modest worsening of bilateral effusions and basilar consolidation. The pleural effusions are currently small to moderate in size. Fadi Yin MD Cyst Biopsy Asp-Paracentesis US 08/16/16 0000 Signed Impressions: Service Date/Time: Tuesday, August 16, 2016 09:24 - CONCLUSION: Uncomplicated ultrasound guided paracentesis. Grady Wilson MD Pelvis Ultrasound 08/14/16 0000 Signed Impressions: Service Date/Time: Sunday, August 14, 2016 22:18 - CONCLUSION: 1. Moderate amount of ascites within the pelvis. 2. Lack of visualization of both ovaries. 3. No discrete mass observed. Bert Nunes Jr., MD Chest CT 08/14/16 0000 Signed Impressions: Service Date/Time: Monday, August 15, 2016 07:53 - CONCLUSION: Bilateral mild pleural effusions being greater on the right. Fadi Cordova MD Hepatobiliary Scan Nuclear Medicine 08/09/16 0000 Signed Impressions: Service Date/Time: Tuesday, August 09, 2016 20:50 - CONCLUSION: Nonvisualization of the gallbladder however the patient does have a stent in place. I reviewed the CT scan from the same day which failed to demonstrate any obvious gallbladder wall thickening. Delayed images of the gallbladder will be performed. Matt Tovar MD ADDENDUM: COMPARISON: BILIARY SCAN (HIDA), July 30, 2016, 13:41. A delayed image in anterior and right lateral projection was performed at 16 hours. There is no activity seen within the lumen of gallbladder. Since the patient has an indwelling biliary stent, absence of gallbladder visualization is nonpredictive with respect to cystic duct obstruction. Bert Brandon MD Abdomen/Pelvis CT 08/09/16 0000 Signed Impressions: Service Date/Time: Tuesday, August 09, 2016 17:46 - CONCLUSION: 1. Silastic biliary stent now present and appears appropriately positioned. Decreased intrahepatic biliary distention, now mild. No pancreatitis or other acute complication demonstrated. 2. Increased ascites, moderate. Also mild to moderate body wall edema/anasarca developing. 3. Mild enteritis/colitis possible versus reactive wall thickening from the ascites. In any event, no obstruction demonstrated. Fadi Yin MD Procedures * 08/11/16 -Paracentesis * 08/16/16 -EUS * 08/25/16 -Diagnostic laparoscopy with peritoneal biopsy . (Jamilah Dhillon) Assessment and Plan Disease Oriented Problem List: (1) non-small cell neoplasm in ascitic cytology (2) recent biliary obstruction, stent placement (3) abdominal pain (4) hyponatremia (5) cholelithiasis Symptom Scale: (1) pain 0-10 Scale: 0 Pertinent Non-Medical Issues Psychosocial: female who lives with her brother. Originally from [place] , Cymro-speaking. Her 2 children are in [place]. Spiritual: Spirituality is very important to her; she is Jain. Legal: The patient has capacity for decision-making at this time. Designation of healthcare surrogate completed and in file. Ethical issues impacting care: None . Important Contacts [facility] -brother Renee Hong Brother Edgard Hong Sister Shaye Hong . Prognosis The patient has had worsening abdominal pain, malignant ascites, and weight loss over the past couple months. She now has non-small cell malignant cells in her ascitic fluid, and it would appear that her prognosis is poor. Oncology following. . Code Status: Full Code Plan * CODE STATUS: FULL CODE * DECISION-MAKING: The patient has capacity for decision-making at this time. Designation are healthcare surrogate completed. Patient designated her brother Renee Hong as HCS, alternate -other 2 siblings Edgard Hong and Shaye Hong. * GOALS OF CARE: Goal is to pursue aggressive care for palliation of symptoms and prolongation of survival. Patient aware of likelihood of abdominal cancer, pending final pathology report for confirmation of diagnosis and treatment plan. Patient's main goal is to [place] to spend time with her elderly mother, 2 children and 2 grandchildren. Patient reiterated her strong shayne belief in hopes for a miracle. * SYMPTOMS: == Abdominal pain: Exacerbated by recent diagnostic lap. Hydromorphone available as needed. Has received 2 doses of 0.2 mg today. Patient feels that this dose is effective for pain management. No further recommendations. == Nausea: Control at this time. Diet as tolerated. * Extensive active listening provided, patient verbalized appreciation for my visit today. Ongoing emotional support provided. * Palliative care contact information has been provided. * Palliative Care will continue to follow the patient during this hospitalization as the clinical course evolves. . (Jamilah Dhillon) Time Spent Total Floor Time (mins): 36 (Total time to include review medical records, physical exam, conversation with patient.) >50% Counseling/Coord of Care: Yes (Jamilah Dhillon) Attestation To help prompt me to consider important information that might be impacting today's encounter and assessment, information from prior notes written by myself or my colleagues may have been "brought forward" into today's note. My signature on this note, however, is an attestation that I personally performed the exam, history, and/or decision-making noted today, and, unless otherwise indicated, the interactions with patient, family, and staff as well as the review of records all occurred today. I also attest that the listed assessment and stated plan reflect my best clinical judgment today based on the combination of historical information, prior notes, and today's exam/ interactions. When time spent is documented, it refers only to time spent today by the signer, or if indicated, combined time spent today by collaborating physician/nurse practitioner. (Jamilah Dhillon) Collaborating MD Comments . Chart reviewed. Cased discussed with palliative care COMMUNICATIONS MEDIA PROFESSOR. Above COMMUNICATIONS MEDIA PROFESSOR note reviewed and I concur. . (JoseA lejandro Gonzalez MD) Jamilah Dhillon August 27, 2016 15:43 Jose Alejandro Gonzalez MD September 20, 2016 15:42
[2016-08-27] MEDS: RESP: ALBUTEROL 2.5 MG/IPRATROPIUM 0.5 MG NEB (SCH) NEB ×2 (20:31→23:44)
[2016-08-28] VITALS (9 sets, daily range): BP systolic 125–158; BP diastolic 76–92; PULSE 83–105; RESP 16–20; TEMP 96.2–98.7; O2SAT 95–100
[2016-08-28] MEDS: RESP: ALBUTEROL 2.5 MG/IPRATROPIUM 0.5 MG NEB (SCH) NEB ×5 (03:31→20:00)
[2016-08-28] MEDS: SPIRONOLACTONE 25 MG TAB PO SCH ×2 (08:41→17:09)
[2016-08-28] MEDS: HYDROmorphone HCL PF 1 MG/ML VIAL IV PUSH PRN ×3 (08:41→19:07)
[2016-08-28] MEDS: PANTOPRAZOLE SOD 40 MG DELAYED RELEASE TAB PO SCH (08:41)
[2016-08-28] MEDS: amLODIPine BESYLATE 5 MG TAB PO SCH (08:41)
[2016-08-28] MEDS: METOPROLOL TARTRATE 25 MG TAB PO SCH ×2 (08:41→21:08)
[2016-08-28] MEDS: guaiFENesin E.R. 600 MG TAB PO SCH ×2 (08:41→21:08)
[2016-08-28] MEDS: SODIUM CHLORIDE 0.9% FLUSH 10 ML FLUSH IV FLUSH SCH ×2 (08:42→21:00)
[2016-08-28] MEDS: predniSONE 10 MG TAB PO SCH ×2 (08:42→21:08)
[2016-08-28] MEDS: FUROSEMIDE 20 MG TAB PO SCH ×2 (08:42→17:09)
--- NOTE | 2016-08-28 08:57 | HHI.PR ---
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 HIDA scan was done and it was positive. Surgery evaluated the patient and felt that there is no evidence of cholecystitis. GI evaluated the patient. Patient also underwent workup for malignancy. 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 There was no evidence of SBP. Oncology saw the patient, and ordered pelvic ultrasound which did not show any mass, CT of the chest which did not show any masses well. Her CEA 125 has been elevated. Patient was placed on Cipro and Flagyl since admission. Endoscopic ultrasound, and after the procedure she became hypoxic, and spiked a temperature of 103. She also started complaining of shortness of breath. admitted to intensive Care Unit, Improved, General Surgery planning for Laparoscopic procedure for Diagnostic purposes and Staging. 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 08/27: stable post Surgery 08/28: Seen in her bedroom, no complaint, no nausea, vomit or diarrhea, but the patient is not eating or drinking properly found her dehydrated. Objective Vital Signs Date Time Temp Pulse Resp B/P Pulse Ox O2 Delivery O2 Flow Rate FiO2 08/28/16 04:33 96.5 83 16 150/89 100 08/28/16 00:06 96.9 91 16 139/84 96 08/27/16 21:02 98.0 89 16 145/84 93 08/27/16 19:15 85 08/27/16 19:00 93 Nasal Cannula 3.00 08/27/16 16:00 97.5 82 20 148/84 96 08/27/16 15:28 96 Nasal Cannula 3.00 08/27/16 12:00 97.1 82 136/74 96 08/27/16 11:32 96 Nasal Cannula 3.00 08/27/16 11:18 Nasal Cannula 6.00 I/O 08/27/16 08/27/16 08/27/16 08/28/16 08/28/16 08/28/16 07:00 15:00 23:00 07:00 15:00 23:00 Intake Total 440 ml 180 ml 100 ml 150 ml Output Total 500 ml 500 ml 500 ml 300 ml Balance -60 ml -320 ml -400 ml -150 ml Intake Oral 200 ml 180 ml 100 ml 150 ml IV Total 240 ml Output Urine Total 500 ml 500 ml 500 ml 300 ml # Voids 2 # Bowel Movements 0 0 1 Result Diagram: 08/26/16 0550 08/26/16 0550 Imaging Last Impressions Chest X-Ray 08/26/16 0000 Signed Impressions: Service Date/Time: August 16:44 - CONCLUSION: Modest worsening of bilateral effusions and basilar consolidation. The pleural effusions are currently small to moderate in size. Fadi Yin MD Cyst Biopsy Asp-Paracentesis US 08/16/16 0000 Signed Impressions: Service Date/Time: Tuesday, August 16, 2016 09:24 - CONCLUSION: Uncomplicated ultrasound guided paracentesis. Grady Wilson MD Pelvis Ultrasound 08/14/16 0000 Signed Impressions: Service Date/Time: Sunday, August 14, 2016 22:18 - CONCLUSION: 1. Moderate amount of ascites within the pelvis. 2. Lack of visualization of both ovaries. 3. No discrete mass observed. Bert Nunes Jr., MD Chest CT 08/14/16 0000 Signed Impressions: Service Date/Time: Monday, August 15, 2016 07:53 - CONCLUSION: Bilateral mild pleural effusions being greater on the right. Fadi Cordova MD Hepatobiliary Scan Nuclear Medicine 08/09/16 0000 Signed Impressions: Service Date/Time: Tuesday, August 09, 2016 20:50 - CONCLUSION: Nonvisualization of the gallbladder however the patient does have a stent in place. I reviewed the CT scan from the same day which failed to demonstrate any obvious gallbladder wall thickening. Delayed images of the gallbladder will be performed. Matt Tovar MD ADDENDUM: COMPARISON: BILIARY SCAN (HIDA), July 30, 2016, 13:41. A delayed image in anterior and right lateral projection was performed at 16 hours. There is no activity seen within the lumen of gallbladder. Since the patient has an indwelling biliary stent, absence of gallbladder visualization is nonpredictive with respect to cystic duct obstruction. Bert Brandon MD Abdomen/Pelvis CT 08/09/16 0000 Signed Impressions: Service Date/Time: Tuesday, August 09, 2016 17:46 - CONCLUSION: 1. Silastic biliary stent now present and appears appropriately positioned. Decreased intrahepatic biliary distention, now mild. No pancreatitis or other acute complication demonstrated. 2. Increased ascites, moderate. Also mild to moderate body wall edema/anasarca developing. 3. Mild enteritis/colitis possible versus reactive wall thickening from the ascites. In any event, no obstruction demonstrated. Fadi Yin MD Procedures ERCP and Stent placement Paracenteses and cytology Other Results Laboratory Tests Test 08/26/16 05:50 White Blood Count 11.1 TH/MM3 Red Blood Count 4.37 MIL/MM3 Hemoglobin 12.4 GM/DL Hematocrit 36.9 % Mean Corpuscular Volume 84.3 FL Mean Corpuscular Hemoglobin 28.4 PG Mean Corpuscular Hemoglobin 33.7 % Concent Red Cell Distribution Width 15.4 % Platelet Count 275 TH/MM3 Mean Platelet Volume 9.1 FL Neutrophils (%) (Auto) 84.2 % Lymphocytes (%) (Auto) 9.6 % Monocytes (%) (Auto) 6.1 % Eosinophils (%) (Auto) 0.0 % Basophils (%) (Auto) 0.1 % Neutrophils # (Auto) 9.3 TH/MM3 Lymphocytes # (Auto) 1.1 TH/MM3 Monocytes # (Auto) 0.7 TH/MM3 Eosinophils # (Auto) 0.0 TH/MM3 Basophils # (Auto) 0.0 TH/MM3 CBC Comment DIFF FINAL Differential Comment Sodium Level 129 MEQ/L Potassium Level 4.3 MEQ/L Chloride Level 93 MEQ/L Carbon Dioxide Level 28.4 MEQ/L Anion Gap 8 MEQ/L Blood Urea Nitrogen 16 MG/DL Creatinine 0.45 MG/DL Estimat Glomerular Filtration 144 ML/MIN Rate Random Glucose 117 MG/DL Calcium Level 8.5 MG/DL Phosphorus Level 3.2 MG/DL Magnesium Level 2.1 MG/DL Objective Remarks GENERAL: Older for her age, Mild respiratory distress. SKIN: Warm and dry. HEAD: Atraumatic. Normocephalic. EYES: Pupils equal and round. ENT: No nasal bleeding or discharge. dry mucous membranes. NECK: Trachea midline. No JVD. CARDIOVASCULAR: Regular rate and rhythm. RESPIRATORY: No accessory muscle use. Clear to auscultation. Breath sounds equal bilaterally. GASTROINTESTINAL: Distended, and pain on palpation generalized. MUSCULOSKELETAL: Extremities without clubbing, cyanosis, or edema. No obvious deformities. NEUROLOGICAL: Awake and alert. No obvious cranial nerve deficits. PSYCHIATRIC: Appropriate mood and affect. Medications and IVs Current Medications Medications (Trade) Dose Ordered Sig/Anastacio Route Start Time Stop Time Status Last Admin (NS Flush) 2 ml UNSCH PRN IV FLUSH 08/09/16 20:45 08/22/16 23:00 (NS Flush) 2 ml BID IV FLUSH 08/09/16 21:00 08/28/16 08:42 (Narcan Inj) 0.4 mg UNSCH PRN IV 08/09/16 20:45 (Dilaudid Pf Inj) 0.2 mg Q4H PRN IV PUSH 08/09/16 23:45 08/28/16 08:41 (Protonix) 40 mg DAILY PO 08/10/16 09:00 08/28/16 08:41 (Mylicon Chew) 80 mg PCHS PRN CHEW 08/12/16 14:00 (Lasix) 20 mg BID@09,18 PO 08/13/16 15:45 08/28/16 08:42 (Aldactone) 25 mg BID@09,18 PO 08/14/16 09:00 08/28/16 08:41 (Benadryl Inj) 25 mg Q6H PRN IV PUSH 08/17/16 22:00 Miscellaneous Information Patient in critical care unit? Ass... Q361D .XX 08/18/16 02:30 (Vasotec Inj) 1.25 mg Q6H PRN IV PUSH 08/21/16 14:00 (Norvasc) 5 mg DAILY PO 08/21/16 15:00 08/28/16 08:41 (Lopressor) 12.5 mg Q12HR PO 08/23/16 21:00 08/28/16 08:41 (Pill Splitter) 1 ea UNSCH PRN OTHER 08/23/16 17:45 (Deltasone) 10 mg BID PO 08/24/16 21:00 08/28/16 08:42 (Mucinex Er) 600 mg BID PO 08/26/16 21:00 08/28/16 08:41 A/P Assessment and Plan 1. Abdominal pain in a patient with history of CBD stricture status post ERCP, with stent placement one week before this admission. came with Abdominal pain, Nausea, and vomit. 2. Respiratory with Hypoxia, after ERCP/EUS, continue Prednisone by mouth, at this time asked for CXR stat, Bronchodilator, Mucolytic and incentive spirometry. 3. 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 GI specialist following , Surgical administrative office specialist following, Doctor Inessa pace good symptoms of Cholecystitis, status post US guided abdominal paracentesis, removed 5 L green cloudy fluid, cytology with features consistent with a non-small cell neoplasm, [place] 125 338 , Diuresis with Lasix and Aldactone for ascites Palliative care oncology following. Status post Diagnostic Exploratory Laparoscopy found Carcinomatosis with no primary, awaiting for biopsy result. 4. Acute Colitis on IV Flagyl until 08/27 and Levaquin until 08/27 Cefepime discontinued by ID specialist 5. Sepsis CXR showed Bilateral Pleural effusion more in the left, ID specialist following, Cefepime, Flagyl and Levaquin finished today. was on Vancomycin. 6. Electrolyte derangement/Hyponatremia replaced and following. 7. Dehydration started on IV fluids bolus of 1000ml started and continue 100ml per hour. DVT prophylaxiswith Lovenox Discussed with Patient and her Brother Mr York all questions answered to the best of my abilities. Discharge Planning Once cleared by specialists. Len Benz MD August 28, 2016 08:57
[2016-08-28] MEDS: RESP: BUDESONIDE 0.5 MG/2 ML NEB NEB SCH (09:09)
[2016-08-28] MEDS ORDERED: SODIUM CHLOR 0.9% 1000 ML INJ 1,000 ML IV ONE (12:30)
[2016-08-28] MEDS: ENOXAPARIN SODIUM 40 MG/0.4 ML SYRINGE SQ SCH (17:10)
[2016-08-28] MEDS: SODIUM CHLOR 0.9% 1000 ML INJ 1,000 ML IV SCH (18:35)
[2016-08-29] VITALS (10 sets, daily range): BP systolic 136–150; BP diastolic 80–90; PULSE 72–105; RESP 16–20; TEMP 96.2–98.1; O2SAT 93–98
[2016-08-29] MEDS: RESP: ALBUTEROL 2.5 MG/IPRATROPIUM 0.5 MG NEB (SCH) NEB ×7 (00:02→23:16)
[2016-08-29] MEDS: HYDROmorphone HCL PF 1 MG/ML VIAL IV PUSH PRN ×5 (04:04→23:54)
[2016-08-29] MEDS: SODIUM CHLOR 0.9% 1000 ML INJ 1,000 ML IV SCH ×3 (05:15→19:17)
[2016-08-29 06:34] LABS: AUTOMATED NEUTROPHIL # 9.2 TH/MM3 (1.8-7.7); BASOPHIL % 0.1 % (0.0-2.0); EOSINOPHIL # 0.1 TH/MM3 (0-0.4); EOSINOPHIL % 0.6 % (0.0-4.0); HEMATOCRIT 35.5 % (35.0-46.0); HEMO FLAGS DIFF FINAL; LYMPH % 11.6 % (9.0-44.0); LYMPHOCYTE # 1.3 TH/MM3 (1.0-4.8); MEAN CELL VOLUME 84.6 FL (80.0-100.0); MEAN CORPUSCULAR HEMOGLOBIN 28.8 PG (27.0-34.0); MEAN CORPUSCULAR HGB CONC 34.1 % (32.0-36.0); MONO % 6.4 % (0.0-8.0); NEUT % 81.3 % (16.0-70.0); PLATELET COUNT 215 TH/MM3 (150-450); RED BLOOD COUNT 4.19 MIL/MM3 (4.00-5.30); RED CELL DISTRIBUTION WIDTH 15.5 % (11.6-17.2); WHITE BLOOD COUNT 11.3 TH/MM3 (4.0-11.0)
[2016-08-29 06:57] LABS: BICARBONATE 28.5 MEQ/L (21.0-32.0); MAGNESIUM 1.9 MG/DL (1.5-2.5); POTASSIUM 3.8 MEQ/L (3.5-5.1)
[2016-08-29] MEDS: RESP: BUDESONIDE 0.5 MG/2 ML NEB NEB SCH ×2 (08:12→20:14)
--- NOTE | 2016-08-29 08:16 | HHI.PR ---
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 HIDA scan was done and it was positive. Surgery evaluated the patient and felt that there is no evidence of cholecystitis. GI evaluated the patient. Patient also underwent workup for malignancy. 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 There was no evidence of SBP. Oncology saw the patient, and ordered pelvic ultrasound which did not show any mass, CT of the chest which did not show any masses well. Her CEA 125 has been elevated. Patient was placed on Cipro and Flagyl since admission. Endoscopic ultrasound, and after the procedure she became hypoxic, and spiked a temperature of 103. She also started complaining of shortness of breath. admitted to intensive Care Unit, Improved, General Surgery planning for Laparoscopic procedure for Diagnostic purposes and Staging. 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 08/27: stable post Surgery 08/28: dehydrated given IV fluids improved. 08/29: Patient seen in her bedroom, increased abdominal pain, will increase Pain medicine and follow, not yet Pathology report in EMR depend of result will require input from GI, Oncology and probable disease education specialist after prognosis reviewed. Objective Vital Signs Date Time Temp Pulse Resp B/P Pulse Ox O2 Delivery O2 Flow Rate FiO2 08/29/16 08:14 96 Nasal Cannula 2.00 08/29/16 04:00 97.1 89 16 149/90 97 08/29/16 00:05 95 Nasal Cannula 3.00 08/29/16 00:00 97.8 93 17 136/81 96 08/28/16 21:10 Nasal Cannula 4.00 30 08/28/16 20:06 102 08/28/16 20:00 96.7 105 18 142/90 96 08/28/16 16:00 98.7 99 18 126/76 95 08/28/16 12:00 96.9 95 18 125/85 96 08/28/16 09:10 97 Nasal Cannula 4.00 I/O 08/28/16 08/28/16 08/28/16 08/29/16 08/29/16 08/29/16 07:00 15:00 23:00 07:00 15:00 23:00 Intake Total 150 ml 240 ml 240 ml 1230 ml Output Total 300 ml Balance -150 ml 240 ml 240 ml 1230 ml Intake Oral 150 ml 240 ml 240 ml IV Total 1230 ml Output Urine Total 300 ml # Voids 4 1 2 # Bowel Movements 1 1 Result Diagram: 08/29/16 0604 08/29/16 0604 Imaging Last Impressions Chest X-Ray 08/26/16 0000 Signed Impressions: Service Date/Time: August 16:44 - CONCLUSION: Modest worsening of bilateral effusions and basilar consolidation. The pleural effusions are currently small to moderate in size. Fadi Yin MD Cyst Biopsy Asp-Paracentesis US 08/16/16 0000 Signed Impressions: Service Date/Time: Tuesday, August 16, 2016 09:24 - CONCLUSION: Uncomplicated ultrasound guided paracentesis. Grady Wilson MD Pelvis Ultrasound 08/14/16 0000 Signed Impressions: Service Date/Time: Sunday, August 14, 2016 22:18 - CONCLUSION: 1. Moderate amount of ascites within the pelvis. 2. Lack of visualization of both ovaries. 3. No discrete mass observed. Bert Nunes Jr., MD Chest CT 08/14/16 0000 Signed Impressions: Service Date/Time: Monday, August 15, 2016 07:53 - CONCLUSION: Bilateral mild pleural effusions being greater on the right. Fadi Cordova MD Hepatobiliary Scan Nuclear Medicine 08/09/16 0000 Signed Impressions: Service Date/Time: Tuesday, August 09, 2016 20:50 - CONCLUSION: Nonvisualization of the gallbladder however the patient does have a stent in place. I reviewed the CT scan from the same day which failed to demonstrate any obvious gallbladder wall thickening. Delayed images of the gallbladder will be performed. Matt Tovar MD ADDENDUM: COMPARISON: BILIARY SCAN (HIDA), July 30, 2016, 13:41. A delayed image in anterior and right lateral projection was performed at 16 hours. There is no activity seen within the lumen of gallbladder. Since the patient has an indwelling biliary stent, absence of gallbladder visualization is nonpredictive with respect to cystic duct obstruction. Bert Brandon MD Abdomen/Pelvis CT 08/09/16 0000 Signed Impressions: Service Date/Time: Tuesday, August 09, 2016 17:46 - CONCLUSION: 1. Silastic biliary stent now present and appears appropriately positioned. Decreased intrahepatic biliary distention, now mild. No pancreatitis or other acute complication demonstrated. 2. Increased ascites, moderate. Also mild to moderate body wall edema/anasarca developing. 3. Mild enteritis/colitis possible versus reactive wall thickening from the ascites. In any event, no obstruction demonstrated. Fadi Yin MD Procedures ERCP and Stent placement Paracenteses and cytology Other Results Laboratory Tests Test 08/29/16 06:04 White Blood Count 11.3 TH/MM3 Red Blood Count 4.19 MIL/MM3 Hemoglobin 12.1 GM/DL Hematocrit 35.5 % Mean Corpuscular Volume 84.6 FL Mean Corpuscular Hemoglobin 28.8 PG Mean Corpuscular Hemoglobin 34.1 % Concent Red Cell Distribution Width 15.5 % Platelet Count 215 TH/MM3 Mean Platelet Volume 8.9 FL Neutrophils (%) (Auto) 81.3 % Lymphocytes (%) (Auto) 11.6 % Monocytes (%) (Auto) 6.4 % Eosinophils (%) (Auto) 0.6 % Basophils (%) (Auto) 0.1 % Neutrophils # (Auto) 9.2 TH/MM3 Lymphocytes # (Auto) 1.3 TH/MM3 Monocytes # (Auto) 0.7 TH/MM3 Eosinophils # (Auto) 0.1 TH/MM3 Basophils # (Auto) 0.0 TH/MM3 CBC Comment DIFF FINAL Differential Comment Sodium Level 129 MEQ/L Potassium Level 3.8 MEQ/L Chloride Level 93 MEQ/L Carbon Dioxide Level 28.5 MEQ/L Anion Gap 8 MEQ/L Blood Urea Nitrogen 12 MG/DL Creatinine 0.44 MG/DL Estimat Glomerular Filtration 147 ML/MIN Rate Random Glucose 107 MG/DL Calcium Level 8.1 MG/DL Phosphorus Level 3.0 MG/DL Magnesium Level 1.9 MG/DL Objective Remarks GENERAL: Older for her age, Mild distress due to pain. SKIN: Warm and dry. HEAD: Atraumatic. Normocephalic. EYES: Pupils equal and round. ENT: No nasal bleeding or discharge. wet mucous membranes. NECK: Trachea midline. No JVD. CARDIOVASCULAR: Regular rate and rhythm. RESPIRATORY: No accessory muscle use. Clear to auscultation. Breath sounds equal bilaterally. GASTROINTESTINAL: Distended, but no pain on palpation. MUSCULOSKELETAL: Extremities without clubbing, cyanosis, or edema. No obvious deformities. NEUROLOGICAL: Awake and alert. No obvious cranial nerve deficits. PSYCHIATRIC: Appropriate mood and affect. Medications and IVs Current Medications Medications (Trade) Dose Ordered Sig/Anastacio Route Start Time Stop Time Status Last Admin (NS Flush) 2 ml UNSCH PRN IV FLUSH 08/09/16 20:45 08/22/16 23:00 (NS Flush) 2 ml BID IV FLUSH 08/09/16 21:00 08/28/16 08:42 (Narcan Inj) 0.4 mg UNSCH PRN IV 08/09/16 20:45 (Dilaudid Pf Inj) 0.2 mg Q4H PRN IV PUSH 08/09/16 23:45 08/29/16 04:04 (Protonix) 40 mg DAILY PO 08/10/16 09:00 08/28/16 08:41 (Mylicon Chew) 80 mg PCHS PRN CHEW 08/12/16 14:00 (Lasix) 20 mg BID@09,18 PO 08/13/16 15:45 08/28/16 17:09 (Aldactone) 25 mg BID@09,18 PO 08/14/16 09:00 08/28/16 17:09 (Benadryl Inj) 25 mg Q6H PRN IV PUSH 08/17/16 22:00 Miscellaneous Information Patient in critical care unit? Ass... Q361D .XX 08/18/16 02:30 (Vasotec Inj) 1.25 mg Q6H PRN IV PUSH 08/21/16 14:00 (Norvasc) 5 mg DAILY PO 08/21/16 15:00 08/28/16 08:41 (Lopressor) 12.5 mg Q12HR PO 08/23/16 21:00 08/28/16 21:08 (Pill Splitter) 1 ea UNSCH PRN OTHER 08/23/16 17:45 (Deltasone) 10 mg BID PO 08/24/16 21:00 08/28/16 21:08 Guaifenesin 600 mg 600 mg BID PO 08/26/16 21:00 08/28/16 21:08 (NS 1000 ml Inj) 1,000 ml @ 100 mls/hr Q10H IV 08/28/16 12:30 08/29/16 05:15 (Lovenox Inj) 40 mg Q24H SQ 08/28/16 17:00 08/28/16 17:10 A/P Assessment and Plan 1. Abdominal pain in a patient with history of CBD stricture status post ERCP, with stent placement one week before this admission. came with Abdominal pain, Nausea, and vomit. Improving. 2. Respiratory with Hypoxia, after ERCP/EUS, continue Prednisone by mouth, at this time asked for CXR stat, Bronchodilator, Mucolytic and incentive spirometry. 3. 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 GI specialist following , Surgical early childhood specialist following, status post US guided abdominal paracentesis, 08/11 removed 5 L green cloudy fluid, cytology with features consistent with a non-small cell [place], [place] [address], Palliative care oncology following. Status post Diagnostic Exploratory Laparoscopy found Carcinomatosis with no primary, awaiting for biopsy result. 4. Acute Colitis on IV Flagyl until 08/27 and Levaquin until 08/27 Cefepime discontinued by ID specialist 5. Sepsis CXR showed Bilateral Pleural effusion more in the left, ID specialist following, Cefepime, Flagyl and Levaquin was on Vancomycin. 6. Electrolyte derangement/Hyponatremia replaced and following. 7. Dehydration started on IV fluids bolus of 1000ml started and continue 100ml per hour. DVT prophylaxiswith Lovenox Discussed with Patient and nurse Miss Mccormick. all questions answered to the best of my abilities. Discharge Planning Once cleared by specialists. Len Benz MD August 29, 2016 08:16 Len Benz MD August 29, 2016 08:16
[2016-08-29] MEDS: METOPROLOL TARTRATE 25 MG TAB PO SCH ×2 (08:45→21:30)
[2016-08-29] MEDS: guaiFENesin E.R. 600 MG TAB PO SCH ×2 (08:46→21:30)
[2016-08-29] MEDS: FUROSEMIDE 20 MG TAB PO SCH ×2 (08:46→17:28)
[2016-08-29] MEDS: predniSONE 10 MG TAB PO SCH ×2 (08:46→21:30)
[2016-08-29] MEDS: amLODIPine BESYLATE 5 MG TAB PO SCH (08:46)
[2016-08-29] MEDS: PANTOPRAZOLE SOD 40 MG DELAYED RELEASE TAB PO SCH (08:46)
[2016-08-29] MEDS: SPIRONOLACTONE 25 MG TAB PO SCH ×2 (08:46→17:28)
[2016-08-29] MEDS: SODIUM CHLORIDE 0.9% FLUSH 10 ML FLUSH IV FLUSH SCH ×2 (08:47→21:00)
[2016-08-29] MEDS: ENOXAPARIN SODIUM 40 MG/0.4 ML SYRINGE SQ SCH (17:29)
[2016-08-30] VITALS (7 sets, daily range): BP systolic 127–162; BP diastolic 60–86; PULSE 84–118; RESP 18–20; TEMP 96.6–99.9; O2SAT 95–97
[2016-08-30] MEDS: SODIUM CHLOR 0.9% 1000 ML INJ 1,000 ML IV SCH ×2 (01:18→14:53)
[2016-08-30] MEDS: RESP: ALBUTEROL 2.5 MG/IPRATROPIUM 0.5 MG NEB (SCH) NEB ×6 (04:35→23:58)
[2016-08-30] MEDS: HYDROmorphone HCL PF 1 MG/ML VIAL IV PUSH PRN ×2 (06:13→18:44)
[2016-08-30] MEDS: FUROSEMIDE 20 MG TAB PO SCH ×2 (08:44→17:13)
[2016-08-30] MEDS: guaiFENesin E.R. 600 MG TAB PO SCH ×2 (08:44→20:17)
[2016-08-30] MEDS: predniSONE 10 MG TAB PO SCH (08:44)
[2016-08-30] MEDS: SPIRONOLACTONE 25 MG TAB PO SCH ×2 (08:44→17:13)
[2016-08-30] MEDS: amLODIPine BESYLATE 5 MG TAB PO SCH (08:44)
[2016-08-30] MEDS: PANTOPRAZOLE SOD 40 MG DELAYED RELEASE TAB PO SCH (08:44)
[2016-08-30] MEDS: METOPROLOL TARTRATE 25 MG TAB PO SCH ×2 (08:44→20:17)
[2016-08-30] MEDS: RESP: BUDESONIDE 0.5 MG/2 ML NEB NEB SCH ×2 (08:45→21:08)
[2016-08-30] MEDS: SODIUM CHLORIDE 0.9% FLUSH 10 ML FLUSH IV FLUSH SCH ×2 (09:00→20:23)
--- NOTE | 2016-08-30 12:59 | HHI.PR ---
Subjective Remarks f/u for abdominal pain. 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 Her brother is at the bedside. patient stated SOB is intermittent. Patient stated she continues to have abdominal pain. + feeling of a burning sensation after eating. Objective Vitals Vital Signs Date Time Temp Pulse Resp B/P Pulse Ox O2 Delivery O2 Flow Rate FiO2 08/30/16 12:00 97.0 85 18 137/82 96 08/30/16 08:55 Nasal Cannula 2.00 30 08/30/16 08:47 Nasal Cannula 3.00 08/30/16 08:00 97.1 106 18 127/82 95 08/30/16 06:05 96.7 84 20 155/86 97 08/30/16 00:00 96.6 88 18 151/77 95 08/29/16 23:55 Nasal Cannula 3.00 30 08/29/16 21:30 Nasal Cannula 2.00 30 08/29/16 20:10 97 08/29/16 20:00 97.8 72 16 138/85 98 08/29/16 16:00 97.0 105 19 137/83 94 I/O 08/29/16 08/29/16 08/29/16 08/30/16 08/30/16 08/30/16 06:59 14:59 22:59 06:59 14:59 22:59 Intake Total 1230 ml 1357 ml 240 ml 1598 ml Output Total 2 ml Balance 1230 ml 1357 ml 238 ml 1598 ml Intake Oral 600 ml 240 ml IV Total 1230 ml 757 ml 1598 ml Output Urine Total 2 ml # Voids 2 3 # Bowel Movements 1 2 0 Result Diagram: 08/29/16 0604 08/29/16 0604 Objective Remarks Gen in NAD Neck: Supple, airway patent. Lungs: good kelly air movement. Heart: Clear tones, NL S1S2, No JVD Abdomen: Soft, tender epigastric area, no peritoneal irritation, BS few. Extremities: Warm, flushed. Neuro: Awake alert oriented 3. Moves 4 limbs. Medications and IVs Current Medications Morphine Sulfate (Morphine Inj) 4 mg ONCE ONCE IV PUSH Last administered on 16:39; Start 08/09/16 at 16:15; Stop 08/09/16 at 16:16; Status DC Ondansetron HCl 4 mg 4 mg ONCE ONCE IVP Last administered on 08/09/16 16:38; Start 08/09/16 at 16:15; Stop 08/09/16 at 16:16; Status DC Sodium Chloride (NS 1000 ml Inj) 1,000 ml @ 1,000 mls/hr Q1H IV Last administered on 08/09/16 16:39; Start 08/09/16 at 16:03; Stop 08/09/16 at 17:02 ; Status DC Sodium Chloride (NS Flush) 2 ml UNSCH PRN IV FLUSH FLUSH AFTER USING IV ACCESS Last administered on 08/09/16 20:01; Start 08/09/16 at 16:15; Stop 08/10/16 at 11:08; Status DC Ketorolac Tromethamine (Toradol Inj) 30 mg ONCE ONCE IVP Last administered on 08/09/16 16:38; Start 08/09/16 at 16:15; Stop 08/09/16 at 16:16; Status DC Iohexol 85 ml 85 ml STK-MED ONCE IV Last administered on 08/09/16 17:50; Start 08/09/16 at 17:50; Stop 08/09/16 at 17:51; Status DC Vancomycin HCl 1000 mg/Sodium Chloride 250 ml @ 250 mls/hr ONCE STAT IV Last administered on 08/09/16 20:01; Start 08/09/16 at 18:42; Stop 08/09/16 at 19:41 ; Status DC Aztreonam 2000 mg/ Sodium Chloride 100 ml @ 200 mls/hr ONCE STAT IV Last administered on 08/09/16 20:51; Start 08/09/16 at 18:42; Stop 08/09/16 at 19:11 ; Status DC Metronidazole (Flagyl 500 Mg Inj) 100 ml @ 100 mls/hr ONCE STAT IV Last administered on 08/09/16 20:01; Start 08/09/16 at 18:42; Stop 08/09/16 at 19:41 ; Status DC Sodium Chloride (NS Flush) 2 ml UNSCH PRN IV FLUSH FLUSH AFTER USING IV ACCESS Last administered on 08/22/16 23:00; Start 08/09/16 at 20:45 Sodium Chloride (NS Flush) 2 ml BID IV FLUSH Last administered on 08/28/16 08: 42; Start 08/09/16 at 21:00 Naloxone HCl (Narcan Inj) 0.4 mg UNSCH PRN IV SEE LABEL COMMENTS; Start at 20:45 Hydromorphone HCl 0.2 mg 0.2 mg Q4H PRN IV PUSH PAIN SCALE 1 TO 5 Last administered on 08/29/16 23:54; Start 08/09/16 at 23:45 Ciprofloxacin/ Dextrose 200 ml @ 200 mls/hr Q12H IV Last administered on 04:38; Start 08/10/16 at 05:00; Stop 08/17/16 at 21:30; Status DC Metronidazole (Flagyl 500 Mg Inj) 100 ml @ 100 mls/hr Q6H IV Last administered on 08/20/16 11:20; Start 08/10/16 at 06:00; Stop 08/20/16 at 13:33 ; Status DC Pantoprazole Sodium (Protonix) 40 mg DAILY PO Last administered on 08/30/16 08: 44; Start 08/10/16 at 09:00 Morphine Sulfate 2 mg 2 mg Q3H PRN IV PUSH pain >5 Last administered on 18:39; Start 08/10/16 at 08:00; Stop 08/12/16 at 07:21; Status DC Sodium Chloride (NS 1000 ml Inj) 1,000 ml @ 75 mls/hr [id number] IV Last administered on 08/12/16 05:08; Start 08/10/16 at 11:17; Stop 08/12/16 at 13:58 ; Status DC Simethicone (Mylicon Chew) 80 mg ONCE ONCE CHEW Last administered on 15:23; Start 08/12/16 at 14:00; Stop 08/12/16 at 14:01; Status DC Simethicone (Mylicon Chew) 80 mg PCHS PRN CHEW BLOATING; Start 08/12/16 at 14: 00 Furosemide (Lasix) 20 mg BID@09,18 PO Last administered on 08/30/16 08:44; Start 08/13/16 at 15:45 Potassium Chloride (KCl) 20 meq ONCE ONCE PO Last administered on 08/13/16 16 :00; Start 08/13/16 at 15:45; Stop 08/13/16 at 15:46; Status DC Spironolactone (Aldactone) 25 mg BID@09,18 PO Last administered on 08/30/16 08: 44; Start 08/14/16 at 09:00 Iohexol (Omnipaque 350 Inj) 50 ml STK-MED ONCE IV Last administered on 08:01; Start 08/15/16 at 08:01; Stop 08/15/16 at 08:02; Status DC Clonidine (Catapres) 0.1 mg ONCE ONCE PO Last administered on 08/16/16 04:13 ; Start 08/16/16 at 04:00; Stop 08/16/16 at 04:01; Status DC Propofol (Diprivan 200 Mg/20 ml Inj) 450 mg STK-MED ONCE IV ; Start 08/17/16 at 14:14; Stop 08/17/16 at 15:01; Status DC Fentanyl Citrate (fentaNYL INJ) 100 mcg STK-MED ONCE .ROUTE ; Start 08/17/16 at 15:02; Stop 08/17/16 at 15:03; Status DC Miscellaneous Information ALL NURSING DEPARTME... UNSCH PRN .XX SEE LABEL COMMENTS; Start 08/17/16 at 14:58; Stop 08/18/16 at 14:57; Status DC Albuterol/ Ipratropium (Duoneb Neb) 1 ampule Q4HR NEB NEB Last administered on 08/21/16 15:06; Start 08/17/16 at 18:00; Stop 08/21/16 at 18:00; Status DC Methylprednisolone Sodium Succinate (SoluMEDROL INJ) 125 mg ONCE ONCE IV PUSH Last administered on 08/17/16 18:20; Start 08/17/16 at 18:30; Stop 08/17/16 at 18:31; Status DC Methylprednisolone Sodium Succinate (SoluMEDROL INJ) 60 mg Q6HR IV PUSH Last administered on 08/20/16 11:23; Start 08/18/16 at 00:00; Stop 08/20/16 at 14:02 ; Status DC Albuterol Sulfate (Albuterol Neb) 2.5 mg Q4HR NEB PRN INH SHORTNESS OF BREATH; Start 08/17/16 at 18:15; Stop 08/21/16 at 18:15; Status DC Metoprolol Tartrate (Lopressor) 25 mg Q12HR PO Last administered on 08/23/16 10 :02; Start 08/17/16 at 21:00; Stop 08/23/16 at 17:42; Status DC Metoprolol Tartrate (Lopressor Inj) 5 mg Q6H PRN IV PUSH P > 130; Start at 18:45; Stop 08/19/16 at 21:23; Status DC Acetaminophen 1000 mg 1,000 mg ONCE ONCE IV Last administered on 08/17/16 19: 03; Start 08/17/16 at 19:00; Stop 08/17/16 at 19:01; Status DC Cefepime HCl/ Sodium Chloride (Maxipime Inj/NS Inj) 100 ml @ 200 mls/hr Q12H IV Last administered on 08/23/16 10:02; Start 08/17/16 at 22:00; Stop 08/23/16 at 12:16; Status DC Diphenhydramine HCl (Benadryl Inj) 25 mg Q6H PRN IV PUSH hives, itching; Start 08/17/16 at 22:00 Miscellaneous Information Patient in critical care unit? Ass... [id number] .XX ; Start 08/18/16 at 02:30 Chlorhexidine Gluconate (Chlorhexidine 2% Cloth) 3 pack DAILY@04 TOPICAL Last administered on 08/22/16 04:00; Start 08/18/16 at 04:00; Stop 08/22/16 at 04:01 ; Status DC Chlorhexidine Gluconate (Chlorhexidine 2% Cloth) 3 pack UNSCH PRN TOPICAL HYGIENIC CARE; Start 08/18/16 at 02:30; Stop 08/23/16 at 02:15; Status DC Potassium Bicarb/ Potassium Chloride 25 meq 25 meq ONCE ONCE PO Last administered on 08/19/16 10:00; Start 08/19/16 at 09:00; Stop 08/19/16 at 09:01 ; Status DC Vancomycin HCl 1000 mg/Sodium Chloride 250 ml @ 250 mls/hr ONCE ONCE IV ; Start 08/19/16 at 14:15; Stop 08/19/16 at 15:14; Status UNV Pharmacy Profile Note 0 ml @ 0 mls/hr UNSCH OTHER ; Start 08/19/16 at 14:15; Stop 08/20/16 at 13:31; Status DC Vancomycin HCl/ Sodium Chloride (Vancomycin Inj/ NS 500 ml Inj) 512.5 ml @ 250 mls/hr Q12H IV Last administered on 08/20/16 06:53; Start 08/19/16 at 16:00; Stop 08/20/16 at 11:34; Status DC Miscellaneous Information SPECIFIC LAB TO BE DRAWN:VANCOMYCIN DATE TO BE DR... ONCE ONCE .XX ; Start 08/21/16 at 03:45; Stop 08/21/16 at 03:46; Status Cancel Diphenhydramine HCl 25 mg 25 mg ONCE ONCE PO Last administered on 08/19/16 23 :33; Start 08/19/16 at 23:15; Stop 08/19/16 at 23:16; Status DC Vancomycin HCl/ Sodium Chloride (Vancomycin Inj/ NS 250 ml Inj) 262.5 ml @ 250 mls/hr Q12H IV ; Start 08/20/16 at 16:00; Stop 08/20/16 at 16:00; Status DC Metronidazole (Flagyl) 500 mg Q8HR PO Last administered on 08/25/16 05:40; Start 08/20/16 at 14:00; Stop 08/25/16 at 10:31; Status DC Prednisone (Deltasone) 20 mg BID PO Last administered on 08/24/16 08:27; Start 08/20/16 at 21:00; Stop 08/24/16 at 15:05; Status DC Enalaprilat (Vasotec Inj) 1.25 mg Q6H PRN IV PUSH SBP>180 or DBP>100; Start at 14:00 Amlodipine Besylate (Norvasc) 5 mg DAILY PO Last administered on 08/30/16 08:44 ; Start 08/21/16 at 15:00 Temazepam (Restoril) 7.5 mg ONCE ONCE PO Last administered on 08/21/16 21:58 ; Start 08/21/16 at 20:00; Stop 08/21/16 at 20:01; Status DC Potassium Chloride (KCl) 40 meq ONCE ONCE PO Last administered on 08/22/16 17 :30; Start 08/22/16 at 16:45; Stop 08/22/16 at 16:46; Status DC Levofloxacin (Levaquin) 750 mg DAILY PO Last administered on 08/25/16 08:36; Start 08/23/16 at 13:00; Stop 08/25/16 at 10:31; Status DC Albuterol/ Ipratropium (Duoneb Neb) 1 ampule QID NEB PRN NEB wheezing Last administered on 08/23/16 17:47; Start 08/23/16 at 15:00; Stop 08/27/16 at 16:46; Status DC Metoprolol Tartrate (Lopressor) 12.5 mg Q12HR PO Last administered on 08/30/16 08:44; Start 08/23/16 at 21:00 Metoprolol Tartrate (Lopressor) 12.5 mg ONCE ONCE PO Last administered on 18:59; Start 08/23/16 at 17:30; Stop 08/23/16 at 17:41; Status DC Miscellaneous (Pill Splitter) 1 ea UNSCH PRN OTHER SEE LABEL COMMENTS; Start at 17:45 Prednisone 10 mg 10 mg BID PO Last administered on 08/30/16 08:44; Start at 21:00 Lactated Ringer's 1,000 ml @ 30 mls/hr Q24H PRN IV SEE LABEL COMMENTS; Start at 03:30; Stop 08/28/16 at 03:29; Status DC Sodium Chloride (NS 500 ml Inj) 500 ml @ 30 mls/hr [id number] PRN IV SEE LABEL COMMENTS; Start 08/25/16 at 03:30; Stop 08/28/16 at 03:29; Status DC Metoprolol Tartrate (Lopressor) 25 mg PALLETIZER PRN PO SEE LABEL COMMENTS; Start 08/25/16 at 03:30; Stop 08/28/16 at 03:29; Status DC Povidone Iodine (Betadine 5% Antisepsis Kit) 1 applic PALLETIZER PRN EACH NARE SEE LABEL COMMENTS; Start 08/25/16 at 03:30; Stop 08/28/16 at 03:29; Status DC Chlorhexidine Gluconate 3 pack 3 pack PALLETIZER PRN TOPICAL SEE LABEL COMMENTS; Start 08/25/16 at 03:30; Stop 08/28/16 at 03:29; Status DC Levofloxacin/ Dextrose 150 ml @ 100 mls/hr Q24H IV Last administered on 09:23; Start 08/26/16 at 09:00; Stop 08/27/16 at 12:00; Status DC Metronidazole (Flagyl 500 Mg Inj) 100 ml @ 100 mls/hr Q8H IV Last administered on 08/27/16 22:11; Start 08/25/16 at 14:00; Stop 08/27/16 at 23:55; Status DC Bupivacaine HCl (Marcaine Pf 0.5% Inj) 30 ml STK-MED ONCE .ROUTE ; Start at 14:52; Stop 08/25/16 at 14:53; Status DC Sugammadex Sodium (Bridion Inj) 200 mg STK-MED ONCE IV PUSH ; Start 08/25/16 at 15:51; Stop 08/25/16 at 15:52; Status DC Bupivacaine HCl/ Epinephrine Bitart (Sensorcaine-Epinephrine Pf 0.25% Inj) 10 ml STK-MED ONCE INFIL Last administered on 08/25/16 15:45; Start 08/25/16 at 15: 45; Stop 08/25/16 at 16:12; Status DC Morphine Sulfate (*morphine INJ PERIprocedure ONLY) 8 mg STK-MED ONCE .ROUTE Last administered on 08/25/16 16:50; Start 08/25/16 at 16:50; Stop 08/25/16 at 16: 51; Status DC Ipratropium Ulysses (Atrovent Neb) 0.5 mg Q4HR NEB NEB Last administered on 15:28; Start 08/26/16 at 17:00; Stop 08/27/16 at 16:47; Status DC Budesonide (Pulmicort Respule Neb) 0.5 mg Q12HR NEB NEB Last administered on 08:45; Start 08/26/16 at 20:00 Guaifenesin (Mucinex Er) 600 mg BID PO Last administered on 08/30/16 08:44; Start 08/26/16 at 21:00 Albuterol/ Ipratropium 1 ampule 1 ampule Q4HR NEB NEB Last administered on 08/30 08:48; Start 08/27/16 at 20:00 Sodium Chloride 1,000 ml @ 999 mls/hr BOLUS ONCE IV Last administered on 13:46; Start 08/28/16 at 12:30; Stop 08/28/16 at 13:30; Status DC Sodium Chloride (NS 1000 ml Inj) 1,000 ml @ 100 mls/hr Q10H IV Last administered on 08/30/16 01:18; Start 08/28/16 at 12:30 Enoxaparin Sodium (Lovenox Inj) 40 mg Q24H SQ Last administered on 08/29/16 17: 29; Start 08/28/16 at 17:00 Hydromorphone HCl (Dilaudid Pf Inj) 0.5 mg Q4H PRN IV PUSH PAIN SCALE 6 TO 10 Last administered on 08/30/16 06:13; Start 08/29/16 at 12:15 A/P Problem List: (1) Abdominal pain ICD Code: R10.9 Status: Acute Assessment and Plan 56-year-old female with history of CBD stricture s/p ERCP with stent placement 1 week ago from admission presents with abdominal pain, nausea/ vomiting Respiratory failure with hypoxia -Occurred after ERCP/EUS -had some wheezing so started on Solu-Medrol and nebulizers. -Improved now on nasal cannula. Treatment as below. -Since clinically exam has improved weaning off of solumedrol. 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 -Imaging reviewed: CT abd showed silastic biliary stent now present and appears appropriately positioned; Decreased intrahepatic biliary distention, now mild; Increased ascites, moderate; mild to moderate body wall edema/anasarca developing; Mild enteritis/colitis possible versus reactive wall thickening from the ascites. HIDA 08/10 shows nonvisualization of the gallbladder. -Consulted gastroenterology, per Dr. Whitehead signed off. -Surgical oncology, Dr. Wylie, consulted. Not a good surgical candidate for cholecystectomy at this time. Symptoms not c/w cholecystitis at this time. -s/p U/S guided abdominal paracentesis 08/11 removed 5L green cloudy fluid, WBC 1320, RBC 897, repeat cytology with features consistent with a non-small cell neoplasm -tumor markers remarkable for CA-125 elevated at 338, culture negative. -Diuresis with Lasix and Aldactone for ascites -Palliative care oncology following. -Patient had repeat paracentesis done on 08/16/2016. -Patient had ERCP/EUS done today on 08/17/2016. -repeat cytology positive for non-small cell neoplasm. GI signed off. -supportive treatment with pain control and antiemetics prn. Simethicone prn. -s/p Diagnostic and staging laparoscopies and Peritoneal biopsy 08/26/2016 pending pathology for treatment. -Onc ff pending results. Acute Colitis: seen on CT abdomen as above RESOLVED -On IV Cipro/Flagyl for gastroenterology which was d/leny -diet as tolerated per gastroenterology -Recommending eating small portions to avoid simulating pain. -GI signed off. Recent High Grade CBD Stricture: -s/p ERCP with stent placement 07/31. Pathology revealed rare atypical cells present in the background of numerous glandular epithelial cells, malignancy cannot be excluded. LFTs have been trending down since stent placement. CT abd showed biliary stent appropriately positioned, decreased biliary distention, no pancreatitis. -Gastroenterology on board -Continue to monitor LFTs, stable, follow-up CMP. Sepsis: -May be secondary to aspiration pneumonia. Chest x-ray shows bilateral pleural effusion more in the left side in the right and left-sided infiltrate. -Managed by infectious disease. completed antibiotics course on 08/27/16. -Clinically improving. Left-sided pneumonia. -See treatment as above. Hyponatremia: likely secondary to dehydration -Na 129 upon arrival -s/p IVF Hypokalemia -replenished on as needed DVT prophylaxiswith Lovenox Discharge Planning pending pathology. Problem Qualifiers (1) Abdominal pain: Qualified Code: R10.11 - Right upper quadrant abdominal pain Maddie Jewell MD August 30, 2016 12:59
[2016-08-30] MEDS: FAMOTIDINE 20 MG TAB PO SCH ×2 (14:52→20:17)
--- NOTE | 2016-08-30 16:28 | HHI.HCPN ---
Reason for visit a. To assist with evaluation and management of symptoms including: Pain, debility. b. To assist medical decision maker(s) with: better understanding of current medical conditions; weighing benefits/burdens of medical treatment options; making medical treatment decisions. . (Jamilah Dhillon) Subjective/Interval History Patient seen in her room. Patient is Fijian speaker, no garland machine operator needed or required as we both speak fluent Fijian. Patient endorsing epigastric pain currently rated at 7/10. Pain is sharp, intermittent, exacerbated after meals and physical exertion and alleviated by pain medication. Patient also reported bilateral shoulders pain, greater on the right side. Patient denying nausea, vomiting or diarrhea. Patient endorsing poor appetite secondary to abdominal pain. Most recent laboratory data 08/29/16 showing WBC 11.3, Hgb 12.1, platelet count 215. Sodium 129, potassium 3.8, BUN/creatinine 12/0.44. No new imaging. Patient afebrile, stable hemodynamically. Currently on O2 2 L via nasal cannula. Cytology 08/11/16 and 08/16/16 of peritoneal fluid suspicious for malignancy. Diagnostic lap with peritoneal biopsy performed on 08/25/16, pathology this is still pending for confirmation of diagnosis. Patient participated earlier today and PT, ambulated and hallway. Reports feeling "exhausted". Patient's brother at bedside. Reviewed cytology results for peritoneal fluid which are suspicious for malignancy. Patient and brother aware that final pathology report for peritoneal biopsy is still pending for confirmation of diagnosis and treatment plan. Patient's goals of care remains unchanged, she wishes to pursue treatment options offered with hopes of prolongation of survival. Patient's main goal is to return [place] to spend time with her elderly mother, 2 children and 2 grandchildren. Patient reiterated her strong shayne belief in hopes for a miracle. Extensive active listening provided, patient and brother verbalized appreciation for my visit today. Ongoing emotional support provided. . Family/friend interactions See interval note. . (Jamilah Dhillon) Advance Directives Living Will: Never completed Health Care Surrogate: Copy in medical record Durable Power of Analog Device Designer: Never completed (Jamilah Dhillon) Advance Directive Specifics Date completed: 08/16/16. . Health Care Surrogate(s): Patient's brother Renee Hong, alternate Edgard Hong and Shaye Hal. . Documented care wishes: No living will completed. Patient declined completion at this time. . Significant change in goals: Remain unchanged. Full code. . (Jamilah Dhillon) Objective Vital Signs Date Time Temp Pulse Resp B/P Pulse Ox O2 Delivery O2 Flow Rate FiO2 08/30/16 12:00 97.0 85 18 137/82 96 08/30/16 08:55 Nasal Cannula 2.00 30 08/30/16 08:47 Nasal Cannula 3.00 08/30/16 08:00 97.1 106 18 127/82 95 08/30/16 08:00 105 08/30/16 06:05 96.7 84 20 155/86 97 08/30/16 00:00 96.6 88 18 151/77 95 08/29/16 23:55 Nasal Cannula 3.00 30 08/29/16 21:30 Nasal Cannula 2.00 30 08/29/16 20:10 97 08/29/16 20:00 97.8 72 16 138/85 98 Intake & Output 08/30/16 08/30/16 07:00 19:00 Intake Total 1838 ml 747 ml Output Total 2 ml Balance 1836 ml 747 ml Intake Oral 240 ml IV Total 1598 ml 747 ml Output Urine Total 2 ml # Bowel Movements 0 Physical Exam CONSTITUTIONAL/GENERAL: This is an adequately nourished patient, in moderate distress secondary to pain. Holding her abdomen with both hands. TUBES/LINES/DRAINS: Peripheral IV SKIN: No jaundice, rashes, or lesions. Ecchymoses on upper extremities. No wounds seen anteriorly. Skin temperature appropriate. Not diaphoretic. Surgical incisions 3 to abdomen status post diagnostic lap. Incisions are closed, dry and clean. HEAD: Atraumatic. Normocephalic. EYES: Pupils equal and round and reactive. Extraocular motions intact. No scleral icterus. No injection or drainage. ENT: Hearing grossly normal. Nose without bleeding or purulent drainage. Throat without visible erythema, exudates, masses, or lesions. NECK: Trachea midline. Supple, nontender. CARDIOVASCULAR: Regular rate and rhythm without murmurs, gallops, or rubs. No JVD. Peripheral pulses symmetric. RESPIRATORY/CHEST: Symmetric, unlabored respirations. Clear to auscultation. Breath sounds equal bilaterally. No wheezes, rales, or rhonchi. GASTROINTESTINAL: Abdomen soft, but moderately distended. No guarding, generalized tenderness. Bowel sounds present. GENITOURINARY: Without palpable bladder distension. MUSCULOSKELETAL: Extremities without clubbing, cyanosis, or edema. NEUROLOGICAL: Awake and alert. Motor and sensory grossly within normal limits. Follows commands. Cognitively sharp. Moves all extremities. PSYCHIATRIC: No obvious anxiety/depression. no apparent hallucinations or other psychotic thought process. . (Jamilah Dhillon) Diagnostic Tests Laboratory Laboratory Tests Test 08/29/16 06:04 White Blood Count 11.3 TH/MM3 (4.0-11.0) Red Blood Count 4.19 MIL/MM3 (4.00-5.30) Hemoglobin 12.1 GM/DL (11.6-15.3) Hematocrit 35.5 % (35.0-46.0) Mean Corpuscular Volume 84.6 FL (80.0-100.0) Mean Corpuscular Hemoglobin 28.8 PG (27.0-34.0) Mean Corpuscular Hemoglobin 34.1 % Concent (32.0-36.0) Red Cell Distribution Width 15.5 % (11.6-17.2) Platelet Count 215 TH/MM3 (150-450) Mean Platelet Volume 8.9 FL (7.0-11.0) Neutrophils (%) (Auto) 81.3 % (16.0-70.0) Lymphocytes (%) (Auto) 11.6 % (9.0-44.0) Monocytes (%) (Auto) 6.4 % (0.0-8.0) Eosinophils (%) (Auto) 0.6 % (0.0-4.0) Basophils (%) (Auto) 0.1 % (0.0-2.0) Neutrophils # (Auto) 9.2 TH/MM3 (1.8-7.7) Lymphocytes # (Auto) 1.3 TH/MM3 (1.0-4.8) Monocytes # (Auto) 0.7 TH/MM3 (0-0.9) Eosinophils # (Auto) 0.1 TH/MM3 (0-0.4) Basophils # (Auto) 0.0 TH/MM3 (0-0.2) CBC Comment DIFF FINAL Differential Comment Sodium Level 129 MEQ/L (136-145) Potassium Level 3.8 MEQ/L (3.5-5.1) Chloride Level 93 MEQ/L (98-107) Carbon Dioxide Level 28.5 MEQ/L (21.0-32.0) Anion Gap 8 MEQ/L (5-15) Blood Urea Nitrogen 12 MG/DL (7-18) Creatinine 0.44 MG/DL (0.50-1.00) Estimat Glomerular Filtration 147 ML/MIN Rate (>89) Random Glucose 107 MG/DL (74-106) Calcium Level 8.1 MG/DL (8.5-10.1) Phosphorus Level 3.0 MG/DL (2.5-4.9) Magnesium Level 1.9 MG/DL (1.5-2.5) (Jamilah Dhillon) Result Diagram: 08/29/16 0604 08/29/16 0604 Imaging Last Impressions Chest X-Ray 08/26/16 0000 Signed Impressions: Service Date/Time: August 16:44 - CONCLUSION: Modest worsening of bilateral effusions and basilar consolidation. The pleural effusions are currently small to moderate in size. Fadi Yin MD Cyst Biopsy Asp-Paracentesis US 08/16/16 0000 Signed Impressions: Service Date/Time: Tuesday, August 16, 2016 09:24 - CONCLUSION: Uncomplicated ultrasound guided paracentesis. Grady Wilson MD Pelvis Ultrasound 08/14/16 0000 Signed Impressions: Service Date/Time: Sunday, August 14, 2016 22:18 - CONCLUSION: 1. Moderate amount of ascites within the pelvis. 2. Lack of visualization of both ovaries. 3. No discrete mass observed. Bert Nunes Jr., MD Chest CT 08/14/16 0000 Signed Impressions: Service Date/Time: Monday, August 15, 2016 07:53 - CONCLUSION: Bilateral mild pleural effusions being greater on the right. Fadi Cordova MD Hepatobiliary Scan Nuclear Medicine 08/09/16 0000 Signed Impressions: Service Date/Time: Tuesday, August 09, 2016 20:50 - CONCLUSION: Nonvisualization of the gallbladder however the patient does have a stent in place. I reviewed the CT scan from the same day which failed to demonstrate any obvious gallbladder wall thickening. Delayed images of the gallbladder will be performed. Matt Tovar MD ADDENDUM: COMPARISON: BILIARY SCAN ([facility]), July 30, 2016, 13:41. A delayed image in anterior and right lateral projection was performed at 16 hours. There is no activity seen within the lumen of gallbladder. Since the patient has an indwelling biliary stent, absence of gallbladder visualization is nonpredictive with respect to cystic duct obstruction. Bert Brandon MD Abdomen/Pelvis CT 08/09/16 0000 Signed Impressions: Service Date/Time: Tuesday, August 09, 2016 17:46 - CONCLUSION: 1. Silastic biliary stent now present and appears appropriately positioned. Decreased intrahepatic biliary distention, now mild. No pancreatitis or other acute complication demonstrated. 2. Increased ascites, moderate. Also mild to moderate body wall edema/anasarca developing. 3. Mild enteritis/colitis possible versus reactive wall thickening from the ascites. In any event, no obstruction demonstrated. Fadi Yin MD Procedures * 08/11/16 -Paracentesis * 08/16/16 -EUS * 08/25/16 -Diagnostic laparoscopy with peritoneal biopsy . (Jamilah Dhillon) Assessment and Plan Disease Oriented Problem List: (1) non-small cell neoplasm in ascitic cytology (2) recent biliary obstruction, stent placement (3) abdominal pain (4) hyponatremia (5) cholelithiasis Symptom Scale: (1) pain 0-10 Scale: 7 Comment: Abdominal pain secondary to burden of disease, surgical intervention. Pertinent Non-Medical Issues Psychosocial: female who lives with her brother. Originally from [place] , Fijian-speaking. Her 2 children are in [place]. Spiritual: Spirituality is very important to her; she is Ep[employer]alian. Legal: The patient has capacity for decision-making at this time. Designation of healthcare surrogate completed and in file. Ethical issues impacting care: None . Important Contacts [facility] -brother Renee Hong Brother Edgard Hong Sister Shaye Hong . Prognosis The patient has had worsening abdominal pain, malignant ascites, and weight loss over the past couple months. She now has non-small cell malignant cells in her ascitic fluid, and it would appear that her prognosis is poor. Oncology following. . Code Status: Full Code Plan * CODE STATUS: FULL CODE * DECISION-MAKING: The patient has capacity for decision-making at this time. Designation are healthcare surrogate completed. Patient designated her brother Renee Hong as HCS, alternate -other 2 siblings Edgard Hong and Shaye Hogn. * GOALS OF CARE: Patient's goal is to pursue aggressive care for palliation of symptoms and prolongation of survival. Patient aware of likelihood of malignancy, pending final pathology report for confirmation of diagnosis and treatment options. Patient's main goal is to return to her [place] to spend time with her elderly mother, 2 children and 2 grandchildren. Patient reiterated her strong shayne belief in hopes for a miracle. * SYMPTOMS: == Abdominal pain: Secondary to burden of disease. Exacerbated by recent diagnostic lap. Hydromorphone 0.5 mg available every 4 hours as needed. Has received 1 dose today. Dose was increased yesterday from 0.2 mg. = = Nausea: Controlled at this time. Diet as tolerated. == Debility, secondary to burden of disease and prolonged hospitalization. Currently participating in PT. * Extensive active listening provided, patient verbalized appreciation for my visit today. Ongoing emotional support provided. * Palliative care contact information has been provided. * Palliative Care will continue to follow the patient during this hospitalization as the clinical course evolves. . (Jamilah Dhillon) Time Spent Total Floor Time (mins): 33 (Total time to include review medical records, physical exam and conversation with patient and brother.) >50% Counseling/Coord of Care: Yes (Jamilah Dhillon) Attestation To help prompt me to consider important information that might be impacting today's encounter and assessment, information from prior notes written by myself or my colleagues may have been "brought forward" into today's note. My signature on this note, however, is an attestation that I personally performed the exam, history, and/or decision-making noted today, and, unless otherwise indicated, the interactions with patient, family, and staff as well as the review of records all occurred today. I also attest that the listed assessment and stated plan reflect my best clinical judgment today based on the combination of historical information, prior notes, and today's exam/ interactions. When time spent is documented, it refers only to time spent today by the signer, or if indicated, combined time spent today by collaborating physician/nurse practitioner. (Jamilah Dhillon) Collaborating MD Comments . Chart reviewed. Cased discussed with palliative care VENETIAN BLIND TAPE CUTTER. Above VENETIAN BLIND TAPE CUTTER note reviewed and I concur. . (Jose Alejandro Gonzalez MD) Jamilah Dhillon August 30, 2016 16:28 Jose Alejandro Gonzalez MD September 20, 2016 16:00
[2016-08-30] MEDS: ENOXAPARIN SODIUM 40 MG/0.4 ML SYRINGE SQ SCH (17:14)
[2016-08-30] MEDS: predniSONE 5 MG TAB PO SCH (20:17)
[2016-08-30] MEDS ORDERED: ACETAMINOPHEN 325 MG TAB PO ONE (23:00)
[2016-08-31] VITALS (14 sets, daily range): BP systolic 119–168; BP diastolic 67–96; PULSE 90–170; RESP 16–20; TEMP 97–101.7; O2SAT 91–97
[2016-08-31] MEDS: HYDROmorphone HCL PF 1 MG/ML VIAL IV PUSH PRN (00:09)
[2016-08-31] MEDS ORDERED: IBUPROFEN 400 MG TAB PO SCH (00:30)
[2016-08-31 02:07] LABS: BASOPHIL # 0.1 TH/MM3 (0-0.2); BASOPHIL % 0.5 % (0.0-2.0); HEMATOCRIT 36.3 % (35.0-46.0); HEMO FLAGS DIFF FINAL; LYMPH % 5.2 % (9.0-44.0); LYMPHOCYTE # 0.8 TH/MM3 (1.0-4.8); MEAN CELL VOLUME 84.1 FL (80.0-100.0); MEAN CORPUSCULAR HEMOGLOBIN 28.7 PG (27.0-34.0); MEAN CORPUSCULAR HGB CONC 34.1 % (32.0-36.0); MONO % 5.9 % (0.0-8.0); NEUT % 88.4 % (16.0-70.0); PLATELET COUNT 235 TH/MM3 (150-450); RED BLOOD COUNT 4.32 MIL/MM3 (4.00-5.30); RED CELL DISTRIBUTION WIDTH 15.9 % (11.6-17.2); WHITE BLOOD COUNT 14.7 TH/MM3 (4.0-11.0)
[2016-08-31 02:28] LABS: ALT (GPT) 93 U/L (10-53); ANION GAP 10 MEQ/L (5-15); AST (GOT) 177 U/L (15-37); BICARBONATE 27.8 MEQ/L (21.0-32.0); BLOOD UREA NITROGEN 10 MG/DL (7-18); CHLORIDE 87 MEQ/L (98-107); GLOMERULAR FILTRATION RATE 147 ML/MIN (>89); POTASSIUM 3.4 MEQ/L (3.5-5.1); SODIUM (NA) 125 MEQ/L (136-145)
[2016-08-31 02:30] LABS: ALKALINE PHOSPHATASE 944 U/L (45-117); TOTAL BILIRUBIN ADULT 1.5 MG/DL (0.2-1.0)
[2016-08-31] MEDS: RESP: ALBUTEROL 2.5 MG/IPRATROPIUM 0.5 MG NEB (SCH) NEB ×5 (03:36→19:44)
--- NOTE | 2016-08-31 06:59 | RADRPT ---
EXAM DATE/TIME: 08/31/2016 06:41 [facility] COMPARISON: CHEST SINGLE AP, August 26, 2016, 16:44. INDICATIONS : Fever, short of breath MEDICAL HISTORY : Cardiovascular disease. SURGICAL HISTORY : Coronary artery stent. ENCOUNTER: Subsequent ACUITY: 1 day PAIN SCORE: Non-responsive. LOCATION: Bilateral chest FINDINGS: A single portable frontal view the chest shows no significant change. Moderate sized bilateral pleura l effusions with associated bibasilar infiltrates. Heart is normal in size. CONCLUSION: Unchanged bilateral pleural effusions and bibasilar infiltrates. Bert Nunes Jr., MD on August 31, 2016 at 6:57 Board Certified Radiologist. This report was verified electronically.
[2016-08-31 07:31] LABS: BLOOD, URINE NEG (NEG); COMMENT (UR) CULT NOT INDICATED; CULTURE IF INDICATED CULT NOT INDICATED; GLUCOSE,URINE NEG (NEG); KETONE, URINE NEG (NEG); MUCUS URINE FEW /lpf (OCC); NITRITE,URINE NEG (NEG); SQUAMOUS EPITHELIAL CELL URINE <1 /hpf (0-5); URINE COLOR YELLOW (YELLW/STRAW)
[2016-08-31] MEDS: RESP: BUDESONIDE 0.5 MG/2 ML NEB NEB SCH ×2 (08:16→19:44)
--- NOTE | 2016-08-31 08:22 | PD.ONC.PN ---
Subjective Subjective Remarks Patient seen and examined, patient reports continued abdominal pain and distention. I discussed the results of the peritoneal biopsies through an medical interpreter. Pathologic findings consistent with metastatic carcinoma likely of pancreatic/ biliary primary. Objective Data Date Time Temp Pulse Resp B/P Pulse Ox O2 Delivery O2 Flow Rate FiO2 08/31/16 04:00 97.4 104 16 157/75 96 08/31/16 02:20 98.7 08/31/16 00:10 101.4 08/31/16 00:00 99.4 112 18 136/81 92 08/30/16 21:10 96 Nasal Cannula 3.00 08/30/16 20:17 Nasal Cannula 2.00 30 08/30/16 20:00 99.9 115 18 162/60 96 08/30/16 20:00 118 08/30/16 16:00 98.8 95 20 142/85 96 08/30/16 12:00 97.0 85 18 137/82 96 08/30/16 08:55 Nasal Cannula 2.00 30 08/30/16 08:47 Nasal Cannula 3.00 Result Diagram: 08/31/16 0145 08/31/16 0145 Laboratory Results Laboratory Tests Test 08/31/16 08/31/16 01:45 06:30 White Blood Count 14.7 TH/MM3 Red Blood Count 4.32 MIL/MM3 Hemoglobin 12.4 GM/DL Hematocrit 36.3 % Mean Corpuscular Volume 84.1 FL Mean Corpuscular Hemoglobin 28.7 PG Mean Corpuscular Hemoglobin 34.1 % Concent Red Cell Distribution Width 15.9 % Platelet Count 235 TH/MM3 Mean Platelet Volume 9.0 FL Neutrophils (%) (Auto) 88.4 % Lymphocytes (%) (Auto) 5.2 % Monocytes (%) (Auto) 5.9 % Eosinophils (%) (Auto) 0.0 % Basophils (%) (Auto) 0.5 % Neutrophils # (Auto) 13.0 TH/MM3 Lymphocytes # (Auto) 0.8 TH/MM3 Monocytes # (Auto) 0.9 TH/MM3 Eosinophils # (Auto) 0.0 TH/MM3 Basophils # (Auto) 0.1 TH/MM3 CBC Comment DIFF FINAL Differential Comment Sodium Level 125 MEQ/L Potassium Level 3.4 MEQ/L Chloride Level 87 MEQ/L Carbon Dioxide Level 27.8 MEQ/L Anion Gap 10 MEQ/L Blood Urea Nitrogen 10 MG/DL Creatinine 0.44 MG/DL Estimat Glomerular Filtration 147 ML/MIN Rate Random Glucose 114 MG/DL Calcium Level 8.0 MG/DL Total Bilirubin 1.5 MG/DL Aspartate Amino Transf 177 U/L (AST/SGOT) Alanine Aminotransferase 93 U/L (ALT/SGPT) Alkaline Phosphatase 944 U/L Total Protein 7.0 GM/DL Albumin 2.4 GM/DL Urine Color YELLOW Urine Turbidity CLEAR Urine pH 6.0 Urine Specific [place] 1.007 Urine Protein NEG mg/dL Urine Glucose (UA) NEG mg/dL Urine Ketones NEG mg/dL Urine Occult Blood NEG Urine Nitrite NEG Urine Bilirubin NEG Urine Urobilinogen LESS THAN 2.0 MG/DL Urine Leukocyte Esterase NEG Urine RBC LESS THAN 1 /hpf Urine WBC LESS THAN 1 /hpf Urine Squamous Epithelial <1 /hpf Cells Urine Mucus FEW /lpf Microscopic Urinalysis Comment CULT NOT INDICATED Culture Results Microbiology Date/Time Procedure Status Source Growth 08/31/16 01:40 Aerobic Blood Culture Received Blood Peripheral Pending 08/31/16 01:40 Anaerobic Blood Culture Received Blood Peripheral Pending 08/31/16 01:45 Aerobic Blood Culture Received Blood Peripheral Pending 08/31/16 01:45 Anaerobic Blood Culture Received Blood Peripheral Pending Imaging Studies Last 24 hours Impressions Chest X-Ray 08/31/16 0000 Signed Impressions: Service Date/Time: Wednesday, August 31, 2016 06:41 - CONCLUSION: Unchanged bilateral pleural effusions and bibasilar infiltrates. Bert Nunes Jr., MD Administered Medications Medications (Trade) Dose Ordered Sig/Anastacio Route PRN Reason Start Time Stop Time Status Last Admin Dose Admin Sodium Chloride (NS Flush) 2 ml UNSCH PRN IV FLUSH FLUSH AFTER USING IV ACCESS 08/09/16 20:45 08/22/16 23:00 Sodium Chloride (NS Flush) 2 ml BID IV FLUSH 08/09/16 21:00 08/28/16 08:42 Hydromorphone HCl (Dilaudid Pf Inj) 0.2 mg Q4H PRN IV PUSH PAIN SCALE 1 TO 5 08/09/16 23:45 08/31/16 00:09 Pantoprazole Sodium (Protonix) 40 mg DAILY PO 08/10/16 09:00 08/30/16 08:44 Furosemide (Lasix) 20 mg BID@,18 PO 08/13/16 15:45 08/30/16 17:13 Spironolactone (Aldactone) 25 mg BID@,18 PO 08/14/16 09:00 08/30/16 17:13 Amlodipine Besylate (Norvasc) 5 mg DAILY PO 08/21/16 15:00 08/30/16 08:44 Guaifenesin 600 mg 600 mg BID PO 08/26/16 21:00 08/30/16 20:17 Sodium Chloride (NS 1000 ml Inj) 1,000 ml @ 100 mls/hr Q10H IV 08/28/16 12:30 08/30/16 14:53 Enoxaparin Sodium (Lovenox Inj) 40 mg Q24H SQ 08/28/16 17:00 08/30/16 17:14 Hydromorphone HCl (Dilaudid Pf Inj) 0.5 mg Q4H PRN IV PUSH PAIN SCALE 6 TO 10 08/29/16 12:15 08/30/16 18:44 Prednisone (Deltasone) 5 mg BID PO 08/30/16 21:00 08/30/16 20:17 Famotidine (Pepcid) 20 mg BID PO 08/30/16 13:15 08/30/16 20:17 Objective Remarks GENERAL: Elderly female, lying supine in bed SKIN: Warm and dry. HEAD: Normocephalic. EYES: No injection or drainage. NECK: Supple, trachea midline. CARDIOVASCULAR: Regular rate and rhythm RESPIRATORY: Breath sounds equal bilaterally. No accessory muscle use. GASTROINTESTINAL: Abdomen distended, tender to palpation throughout. EXTREMITIES: No cyanosis, or edema. MUSCULOSKELETAL: Adequate muscle tone. 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 --Cytology showed consistency with non-small cell neoplasm. --Further imaging unable to identify source of malignant cells. --CA-125 elevated--> could be non-specific and related to some form of inflammation such as peritonitis. --Pelvic ultrasound showed--moderate amount of ascites within the pelvis,. Lack of visualization of both ovaries and No discrete mass observed. --CT chest showed bilateral mild pleural effusions left being greater on the right. --? peritoneal carcinomatosis Assessment 56 y/o female admitted with abdominal pain and distension. s/p biliary stent placement with ERCP. Oncology consulted for malignant cells found in cytology of ascitic fluid. Plan 1. 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 Disease directed treatment options include palliative systemic therapy with a combination of agents including 5-FU and Oxaliplatin. Other options include best supportive care/palliative care. I explained to the patient that with treatment median survival could range between 8-9 months. Without disease directed treatment median survival will likely be less than 4 months. I explained to her that either option would be reasonable depending on what her preferences are. Diagnosis and Treatment options were explained to the patient through an medical interpreter fluent in [place]. Patient expresses her desire to proceed with best supportive care/hospice. She tells me she sees no point in pursuing chemotherapeutic options if it will not be curative. Additionally she does not see the point pursuing chemotherapeutic options if only a modest prolongation in survival is to be expected. Her major concern is to have her symptoms specifically abdominal pain and nausea managed. She tells me she also wishes not to be a burden on her family and would like to know what supportive care options can be offered as an outpatient. I will discuss the case with hospice/palliative care. I'm hopeful she may be transitioned to outpatient hospice for symptom management and end-of- life care. Deon Stern MD August 31, 2016 08:22
[2016-08-31] MEDS: amLODIPine BESYLATE 5 MG TAB PO SCH (08:40)
[2016-08-31] MEDS: FAMOTIDINE 20 MG TAB PO SCH ×2 (08:41→21:08)
[2016-08-31] MEDS: METOPROLOL TARTRATE 25 MG TAB PO SCH ×2 (08:41→21:07)
[2016-08-31] MEDS: predniSONE 5 MG TAB PO SCH ×2 (08:41→21:08)
[2016-08-31] MEDS: PANTOPRAZOLE SOD 40 MG DELAYED RELEASE TAB PO SCH (08:41)
[2016-08-31] MEDS: guaiFENesin E.R. 600 MG TAB PO SCH ×2 (08:41→21:08)
[2016-08-31] MEDS: FUROSEMIDE 20 MG TAB PO SCH ×2 (08:42→17:49)
[2016-08-31] MEDS: SPIRONOLACTONE 25 MG TAB PO SCH ×2 (08:44→17:49)
[2016-08-31] MEDS: SODIUM CHLORIDE 0.9% FLUSH 10 ML FLUSH IV FLUSH SCH ×2 (09:00→21:00)
--- NOTE | 2016-08-31 10:27 | HHI.HCPN ---
Reason for visit a. To assist with evaluation and management of symptoms including: Pain, debility. b. To assist medical decision maker(s) with: better understanding of current medical conditions; weighing benefits/burdens of medical treatment options; making medical treatment decisions. . (Jamilah Dhillon) Subjective/Interval History Patient seen in her room. Patient is Nauruan speaker, no director of physical education needed or required as we both speak fluent Nauruan. Patient endorsing epigastric pain currently rated at 6/10. Pain is sharp, intermittent, exacerbated after meals and physical exertion and alleviated by pain medication. No nausea or vomiting reported at this time. 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 Patient tells me that oncology Dr. Stern came this morning to discuss pathology results and treatment plan. Results indicating metastatic cancer, likely pancreatic/biliary primary. Extensive peritoneal metastasis. Treatment options were discussed include palliative systemic therapy versus supportive care with hospice. Patient with a good understanding that treatment is not curative but palliative in nature which would offer only a slight prolongation of survival. As per oncology, prognosis of 8-9 months with disease directed treatment versus 4 months or less with no treatment/supportive care. Patient electing supportive care given her progressive disease/terminal condition and poor prognosis for an improved quality of life. Reviewed hospice philosophy and benefits. Patient's goal is to discharge home with hospice services for pain and symptom management and end-of-life care. Hospice referral has been made. Confirmed patient's place of residency in [place], [place]. data deliverables manager to follow-up with local hospice in the area. . Family/friend interactions Telephone call to patient's brother Renee as per patient's request. He was not available and left message with his . . (Jamilah Dhillon) Advance Directives Living Will: Never completed Health Care Surrogate: Copy in medical record Durable Power of Dice Manager: Never completed (Jamilah Dhillon) Advance Directive Specifics Date completed: 08/16/16. . Health Care Surrogate(s): Patient's brother Renee Hong, alternate Edgard Hong and Shaye Hong. . Documented care wishes: No living will completed. Patient declined completion at this time. . Significant change in goals: No code. Comfort/directed care with hospice services. (Jamilah Dhillon) Objective Vital Signs Date Time Temp Pulse Resp B/P Pulse Ox O2 Delivery O2 Flow Rate FiO2 08/31/16 08:18 96 Nasal Cannula 3.00 08/31/16 08:00 97.8 90 20 119/71 97 08/31/16 04:00 97.4 104 16 157/75 96 08/31/16 02:20 98.7 08/31/16 00:10 101.4 08/31/16 00:00 99.4 112 18 136/81 92 08/30/16 21:10 96 Nasal Cannula 3.00 08/30/16 20:17 Nasal Cannula 2.00 30 08/30/16 20:00 99.9 115 18 162/60 96 08/30/16 20:00 118 08/30/16 16:00 98.8 95 20 142/85 96 08/30/16 12:00 97.0 85 18 137/82 96 Intake & Output 08/31/16 08/31/16 06:59 18:59 Intake Total 480 ml Balance 480 ml Intake Oral 480 ml # Voids 2 Physical Exam CONSTITUTIONAL/GENERAL: This is an adequately nourished patient, in moderate distress secondary to pain. Holding her abdomen with both hands. TUBES/LINES/DRAINS: Peripheral IV SKIN: No jaundice, rashes, or lesions. Ecchymoses on upper extremities. No wounds seen anteriorly. Skin temperature appropriate. Not diaphoretic. Surgical incisions 3 to abdomen status post diagnostic lap. Incisions are closed, dry and clean. HEAD: Atraumatic. Normocephalic. EYES: Pupils equal and round and reactive. Extraocular motions intact. No scleral icterus. No injection or drainage. ENT: Hearing grossly normal. Nose without bleeding or purulent drainage. Throat without visible erythema, exudates, masses, or lesions. NECK: Trachea midline. Supple, nontender. CARDIOVASCULAR: Regular rate and rhythm without murmurs, gallops, or rubs. No JVD. Peripheral pulses symmetric. RESPIRATORY/CHEST: Symmetric, unlabored respirations. Clear to auscultation. Breath sounds equal bilaterally. No wheezes, rales, or rhonchi. GASTROINTESTINAL: Abdomen soft, but moderately distended. No guarding, generalized tenderness. Bowel sounds present. GENITOURINARY: Without palpable bladder distension. MUSCULOSKELETAL: Extremities without clubbing, cyanosis, or edema. NEUROLOGICAL: Awake and alert. Motor and sensory grossly within normal limits. Follows commands. Cognitively sharp. Moves all extremities. PSYCHIATRIC: No obvious anxiety/depression. no apparent hallucinations or other psychotic thought process. . (Jamilah Dhillon) Diagnostic Tests Laboratory Laboratory Tests Test 08/29/16 08/31/16 08/31/16 06:04 01:45 06:30 White Blood Count 11.3 TH/MM3 14.7 TH/MM3 (4.0-11.0) (4.0-11.0) Red Blood Count 4.19 MIL/MM3 4.32 MIL/MM3 (4.00-5.30) (4.00-5.30) Hemoglobin 12.1 GM/DL 12.4 GM/DL (11.6-15.3) (11.6-15.3) Hematocrit 35.5 % 36.3 % (35.0-46.0) (35.0-46.0) Mean Corpuscular Volume 84.6 FL 84.1 FL (80.0-100.0) (80.0-100.0) Mean Corpuscular Hemoglobin 28.8 PG 28.7 PG (27.0-34.0) (27.0-34.0) Mean Corpuscular Hemoglobin 34.1 % 34.1 % Concent (32.0-36.0) (32.0-36.0) Red Cell Distribution Width 15.5 % 15.9 % (11.6-17.2) (11.6-17.2) Platelet Count 215 TH/MM3 235 TH/MM3 (150-450) (150-450) Mean Platelet Volume 8.9 FL 9.0 FL (7.0-11.0) (7.0-11.0) Neutrophils (%) (Auto) 81.3 % 88.4 % (16.0-70.0) (16.0-70.0) Lymphocytes (%) (Auto) 11.6 % 5.2 % (9.0-44.0) (9.0-44.0) Monocytes (%) (Auto) 6.4 % (0.0-8.0) 5.9 % (0.0-8.0) Eosinophils (%) (Auto) 0.6 % (0.0-4.0) 0.0 % (0.0-4.0) Basophils (%) (Auto) 0.1 % (0.0-2.0) 0.5 % (0.0-2.0) Neutrophils # (Auto) 9.2 TH/MM3 13.0 TH/MM3 (1.8-7.7) (1.8-7.7) Lymphocytes # (Auto) 1.3 TH/MM3 0.8 TH/MM3 (1.0-4.8) (1.0-4.8) Monocytes # (Auto) 0.7 TH/MM3 0.9 TH/MM3 (0-0.9) (0-0.9) Eosinophils # (Auto) 0.1 TH/MM3 0.0 TH/MM3 (0-0.4) (0-0.4) Basophils # (Auto) 0.0 TH/MM3 0.1 TH/MM3 (0-0.2) (0-0.2) CBC Comment DIFF FINAL DIFF FINAL Differential Comment Sodium Level 129 MEQ/L 125 MEQ/L (136-145) (136-145) Potassium Level 3.8 MEQ/L 3.4 MEQ/L (3.5-5.1) (3.5-5.1) Chloride Level 93 MEQ/L 87 MEQ/L (98-107) (98-107) Carbon Dioxide Level 28.5 MEQ/L 27.8 MEQ/L (21.0-32.0) (21.0-32.0) Anion Gap 8 MEQ/L (5-15) 10 MEQ/L (5-15) Blood Urea Nitrogen 12 MG/DL (7-18) 10 MG/DL (7-18) Creatinine 0.44 MG/DL 0.44 MG/DL (0.50-1.00) (0.50-1.00) Estimat Glomerular Filtration 147 ML/MIN 147 ML/MIN Rate (>89) (>89) Random Glucose 107 MG/DL 114 MG/DL (74-106) (74-106) Calcium Level 8.1 MG/DL 8.0 MG/DL (8.5-10.1) (8.5-10.1) Phosphorus Level 3.0 MG/DL (2.5-4.9) Magnesium Level 1.9 MG/DL (1.5-2.5) Total Bilirubin 1.5 MG/DL (0.2-1.0) Aspartate Amino Transf 177 U/L (15-37) (AST/SGOT) Alanine Aminotransferase 93 U/L (10-53) (ALT/SGPT) Alkaline Phosphatase 944 U/L (45-117) Total Protein 7.0 GM/DL (6.4-8.2) Albumin 2.4 GM/DL (3.4-5.0) Urine Color YELLOW (YELLW/STRAW) Urine Turbidity CLEAR (CLEAR) Urine pH 6.0 (5.0-8.5) Urine Specific [place] 1.007 (1.002-1.035) Urine Protein NEG mg/dL (NEG-TRACE) Urine Glucose (UA) NEG mg/dL (NEG) Urine Ketones NEG mg/dL (NEG) Urine Occult Blood NEG (NEG) Urine Nitrite NEG (NEG) Urine Bilirubin NEG (NEG) Urine Urobilinogen LESS THAN 2.0 MG/DL (LESS THAN 2.0) Urine Leukocyte Esterase NEG (NEG) Urine RBC LESS THAN 1 /hpf (0-3) Urine WBC LESS THAN 1 /hpf (0-5) Urine Squamous Epithelial <1 /hpf (0-5) Cells Urine Mucus FEW /lpf (OCC) Microscopic Urinalysis Comment CULT NOT INDICATED (Jamilah Dhillon) Result Diagram: 08/31/16 0145 08/31/16 0145 Microbiology Microbiology Date/Time Procedure Status Source Growth 08/31/16 01:40 Aerobic Blood Culture Resulted Blood Peripheral Pending 08/31/16 01:40 Anaerobic Blood Culture - Final Resulted Blood Peripheral ONLY AEROBIC CULTURE ORDERED 08/31/16 01:45 Aerobic Blood Culture Received Blood Peripheral Pending 08/31/16 01:45 Anaerobic Blood Culture Received Blood Peripheral Pending Procedures * 08/11/16 -Paracentesis * 08/16/16 -EUS * 08/25/16 -Diagnostic laparoscopy with peritoneal biopsy . (Jamilah Dhillon) Assessment and Plan Disease Oriented Problem List: (1) non-small cell neoplasm in ascitic cytology (2) recent biliary obstruction, stent placement (3) abdominal pain (4) hyponatremia (5) cholelithiasis Symptom Scale: (1) pain 0-10 Scale: 6 Comment: Abdominal pain secondary to burden of disease, surgical intervention. Pertinent Non-Medical Issues Psychosocial: female who lives with her brother. Originally from [place] , Naur[place]-speaking. Her 2 children are in [place]. Spiritual: Spirituality is very important to her; she is [employer]. Legal: The patient has capacity for decision-making at this time. Designation of healthcare surrogate completed and in file. Ethical issues impacting care: None . Important Contacts HCS -brother Renee Hong Brother Edgard Hong Sister Shaye Hong . Prognosis The patient has had worsening abdominal pain, malignant ascites, and weight loss over the past couple months. She now has non-small cell malignant cells in her ascitic fluid, and it would appear that her prognosis is poor. Oncology following. . Code Status: No Code Plan * CODE STATUS: Patient electing to change CODE STATUS from full code to no code -DNR/DNI given terminal condition. Community DNR has been signed. * DECISION-MAKING: The patient has capacity for decision-making at this time. Designation are healthcare surrogate completed. Patient designated her brother Renee Hong as HCS, alternate -other 2 siblings Edgard Hong and Shaye Hong. * GOALS OF CARE: Given patient's terminal condition and poor prognosis for an improved quality of life, patient declining disease directed treatment in favor of supportive care/comfort-directed care for pain and symptom management with hospice services. Patient with a good understanding that disease directive treatment is not curative but palliative in nature which would offer only a slight prolongation of survival. * HOSPICE: Patient appropriate for hospice given her terminal condition. Prognosis of 6 months or less if illness run its natural course. Hospice referral has been made. Confirmed patient's place of residency in [place], [place]. data deliverables manager to follow-up with local hospice in the area. * SYMPTOMS: == Abdominal pain: Secondary to burden of disease. Exacerbated by recent diagnostic lap. Hydromorphone 0.5 mg available every 4 hours as needed. == Nausea: Controlled at this time. Diet as tolerated. == Debility, secondary to burden of disease and prolonged hospitalization. Currently participating in PT. * Extensive active listening provided, patient verbalized appreciation for my visit today. Ongoing emotional support provided. * Palliative care contact information has been provided. * Palliative Care will continue to follow up with patient during this hospitalization as the clinical course evolves. . (Jamilah Dhillon) Time Spent Total Floor Time (mins): 48 (Total time to include review and summarization of available medical records, physical exam, and case discussion with [facility] hospice nurse.) >50% Counseling/Coord of Care: Yes (Jamilah Dhillon) Attestation To help prompt me to consider important information that might be impacting today's encounter and assessment, information from prior notes written by myself or my colleagues may have been "brought forward" into today's note. My signature on this note, however, is an attestation that I personally performed the exam, history, and/or decision-making noted today, and, unless otherwise indicated, the interactions with patient, family, and staff as well as the review of records all occurred today. I also attest that the listed assessment and stated plan reflect my best clinical judgment today based on the combination of historical information, prior notes, and today's exam/ interactions. When time spent is documented, it refers only to time spent today by the signer, or if indicated, combined time spent today by collaborating physician/nurse practitioner. (Jamilah Dhillon) Collaborating MD Comments . Chart reviewed. Cased discussed with palliative care [employer]IC[employer]. Above [employer]IC[employer] note reviewed and I concur. . (Jose Alejandro Gonzalez MD) Jamilah Dhillon August 31, 2016 10:27 Jose Alejandro Gonzalez MD September 20, 2016 16:02
--- NOTE | 2016-08-31 12:37 | HHI.PR ---
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 I asked patient if she has any complaints or concern. She stated no. I then asked patient if she understood the conversation with Dr. Stern in regards to treatment. Patient stated yes. I then asked patient if her wishes were to be on hospice for comfort care. Patient again said Yes. Patient then asked me if she can stay in the hospital for hospice. She stated that she cannot go home and take care of herself. Otherwise she had no other complaints. Continues to have the same abdominal discomfort and nausea that is controlled with current regimen. Objective Vitals Vital Signs Date Time Temp Pulse Resp B/P Pulse Ox O2 Delivery O2 Flow Rate FiO2 08/31/16 08:18 96 Nasal Cannula 3.00 08/31/16 08:00 97.8 90 20 119/71 97 08/31/16 04:00 97.4 104 16 157/75 96 08/31/16 02:20 98.7 08/31/16 00:10 101.4 08/31/16 00:00 99.4 112 18 136/81 92 08/30/16 21:10 96 Nasal Cannula 3.00 08/30/16 20:17 Nasal Cannula 2.00 30 08/30/16 20:00 99.9 115 18 162/60 96 08/30/16 20:00 118 08/30/16 16:00 98.8 95 20 142/85 96 I/O 08/30/16 08/30/16 08/30/16 08/31/16 08/31/16 08/31/16 07:00 15:00 23:00 07:00 15:00 23:00 Intake Total 1598 ml 1227 ml 240 ml 240 ml Balance 1598 ml 1227 ml 240 ml 240 ml Intake Oral 480 ml 240 ml 240 ml IV Total 1598 ml 747 ml # Voids 6 1 1 # Bowel Movements 2 Result Diagram: 08/31/16 0145 08/31/16 0145 Objective Remarks Gen in NAD Neck: Supple, airway patent. Lungs: good kelly air movement. Heart: Clear tones, NL S1S2, No JVD Abdomen: Soft, tender epigastric area, no peritoneal irritation, BS few. Extremities: Warm, flushed. Neuro: Awake alert oriented 3. Moves 4 limbs. Medications and IVs Current Medications Morphine Sulfate (Morphine Inj) 4 mg ONCE ONCE IV PUSH Last administered on 16:39; Start 08/09/16 at 16:15; Stop 08/09/16 at 16:16; Status DC Ondansetron HCl 4 mg 4 mg ONCE ONCE IVP Last administered on 08/09/16 16:38; Start 08/09/16 at 16:15; Stop 08/09/16 at 16:16; Status DC Sodium Chloride (NS 1000 ml Inj) 1,000 ml @ 1,000 mls/hr Q1H IV Last administered on 08/09/16 16:39; Start 08/09/16 at 16:03; Stop 08/09/16 at 17:02 ; Status DC Sodium Chloride (NS Flush) 2 ml UNSCH PRN IV FLUSH FLUSH AFTER USING IV ACCESS Last administered on 08/09/16 20:01; Start 08/09/16 at 16:15; Stop 08/10/16 at 11:08; Status DC Ketorolac Tromethamine (Toradol Inj) 30 mg ONCE ONCE IVP Last administered on 08/09/16 16:38; Start 08/09/16 at 16:15; Stop 08/09/16 at 16:16; Status DC Iohexol 85 ml 85 ml STK-MED ONCE IV Last administered on 08/09/16 17:50; Start 08/09/16 at 17:50; Stop 08/09/16 at 17:51; Status DC Vancomycin HCl 1000 mg/Sodium Chloride 250 ml @ 250 mls/hr ONCE STAT IV Last administered on 08/09/16 20:01; Start 08/09/16 at 18:42; Stop 08/09/16 at 19:41 ; Status DC Aztreonam 2000 mg/ Sodium Chloride 100 ml @ 200 mls/hr ONCE STAT IV Last administered on 08/09/16 20:51; Start 08/09/16 at 18:42; Stop 08/09/16 at 19:11 ; Status DC Metronidazole (Flagyl 500 Mg Inj) 100 ml @ 100 mls/hr ONCE STAT IV Last administered on 08/09/16 20:01; Start 08/09/16 at 18:42; Stop 08/09/16 at 19:41 ; Status DC Sodium Chloride (NS Flush) 2 ml UNSCH PRN IV FLUSH FLUSH AFTER USING IV ACCESS Last administered on 08/22/16 23:00; Start 08/09/16 at 20:45 Sodium Chloride (NS Flush) 2 ml BID IV FLUSH Last administered on 08/28/16 08: 42; Start 08/09/16 at 21:00 Naloxone HCl (Narcan Inj) 0.4 mg UNSCH PRN IV SEE LABEL COMMENTS; Start at 20:45 Hydromorphone HCl 0.2 mg 0.2 mg Q4H PRN IV PUSH PAIN SCALE 1 TO 5 Last administered on 08/31/16 00:09; Start 08/09/16 at 23:45 Ciprofloxacin/ Dextrose 200 ml @ 200 mls/hr Q12H IV Last administered on 04:38; Start 08/10/16 at 05:00; Stop 08/17/16 at 21:30; Status DC Metronidazole (Flagyl 500 Mg Inj) 100 ml @ 100 mls/hr Q6H IV Last administered on 08/20/16 11:20; Start 08/10/16 at 06:00; Stop 08/20/16 at 13:33 ; Status DC Pantoprazole Sodium (Protonix) 40 mg DAILY PO Last administered on 08/31/16 08: 41; Start 08/10/16 at 09:00 Morphine Sulfate 2 mg 2 mg Q3H PRN IV PUSH pain >5 Last administered on 18:39; Start 08/10/16 at 08:00; Stop 08/12/16 at 07:21; Status DC Sodium Chloride (NS 1000 ml Inj) 1,000 ml @ 75 mls/hr [id number] IV Last administered on 08/12/16 05:08; Start 08/10/16 at 11:17; Stop 08/12/16 at 13:58 ; Status DC Simethicone (Mylicon Chew) 80 mg ONCE ONCE CHEW Last administered on 15:23; Start 08/12/16 at 14:00; Stop 08/12/16 at 14:01; Status DC Simethicone (Mylicon Chew) 80 mg PCHS PRN CHEW BLOATING; Start 08/12/16 at 14: 00 Furosemide (Lasix) 20 mg BID@09,18 PO Last administered on 08/31/16 08:42; Start 08/13/16 at 15:45 Potassium Chloride (KCl) 20 meq ONCE ONCE PO Last administered on 08/13/16 16 :00; Start 08/13/16 at 15:45; Stop 08/13/16 at 15:46; Status DC Spironolactone (Aldactone) 25 mg BID@09,18 PO Last administered on 08/31/16 08: 44; Start 08/14/16 at 09:00 Iohexol (Omnipaque 350 Inj) 50 ml STK-MED ONCE IV Last administered on 08:01; Start 08/15/16 at 08:01; Stop 08/15/16 at 08:02; Status DC Clonidine (Catapres) 0.1 mg ONCE ONCE PO Last administered on 08/16/16 04:13 ; Start 08/16/16 at 04:00; Stop 08/16/16 at 04:01; Status DC Propofol (Diprivan 200 Mg/20 ml Inj) 450 mg STK-MED ONCE IV ; Start 08/17/16 at 14:14; Stop 08/17/16 at 15:01; Status DC Fentanyl Citrate (fentaNYL INJ) 100 mcg STK-MED ONCE .ROUTE ; Start 08/17/16 at 15:02; Stop 08/17/16 at 15:03; Status DC Miscellaneous Information ALL NURSING DEPARTME... UNSCH PRN .XX SEE LABEL COMMENTS; Start 08/17/16 at 14:58; Stop 08/18/16 at 14:57; Status DC Albuterol/ Ipratropium (Duoneb Neb) 1 ampule Q4HR NEB NEB Last administered on 08/21/16 15:06; Start 08/17/16 at 18:00; Stop 08/21/16 at 18:00; Status DC Methylprednisolone Sodium Succinate (SoluMEDROL INJ) 125 mg ONCE ONCE IV PUSH Last administered on 08/17/16 18:20; Start 08/17/16 at 18:30; Stop 08/17/16 at 18:31; Status DC Methylprednisolone Sodium Succinate (SoluMEDROL INJ) 60 mg Q6HR IV PUSH Last administered on 08/20/16 11:23; Start 08/18/16 at 00:00; Stop 08/20/16 at 14:02 ; Status DC Albuterol Sulfate (Albuterol Neb) 2.5 mg Q4HR NEB PRN INH SHORTNESS OF BREATH; Start 08/17/16 at 18:15; Stop 08/21/16 at 18:15; Status DC Metoprolol Tartrate (Lopressor) 25 mg Q12HR PO Last administered on 08/23/16 10 :02; Start 08/17/16 at 21:00; Stop 08/23/16 at 17:42; Status DC Metoprolol Tartrate (Lopressor Inj) 5 mg Q6H PRN IV PUSH P > 130; Start at 18:45; Stop 08/19/16 at 21:23; Status DC Acetaminophen 1000 mg 1,000 mg ONCE ONCE IV Last administered on 08/17/16 19: 03; Start 08/17/16 at 19:00; Stop 08/17/16 at 19:01; Status DC Cefepime HCl/ Sodium Chloride (Maxipime Inj/NS Inj) 100 ml @ 200 mls/hr Q12H IV Last administered on 08/23/16 10:02; Start 08/17/16 at 22:00; Stop 08/23/16 at 12:16; Status DC Diphenhydramine HCl (Benadryl Inj) 25 mg Q6H PRN IV PUSH hives, itching; Start 08/17/16 at 22:00 Miscellaneous Information Patient in critical care unit? Ass... [id number] .XX ; Start 08/18/16 at 02:30 Chlorhexidine Gluconate (Chlorhexidine 2% Cloth) 3 pack DAILY@04 TOPICAL Last administered on 08/22/16 04:00; Start 08/18/16 at 04:00; Stop 08/22/16 at 04:01 ; Status DC Chlorhexidine Gluconate (Chlorhexidine 2% Cloth) 3 pack UNSCH PRN TOPICAL HYGIENIC CARE; Start 08/18/16 at 02:30; Stop 08/23/16 at 02:15; Status DC Potassium Bicarb/ Potassium Chloride 25 meq 25 meq ONCE ONCE PO Last administered on 08/19/16 10:00; Start 08/19/16 at 09:00; Stop 08/19/16 at 09:01 ; Status DC Vancomycin HCl 1000 mg/Sodium Chloride 250 ml @ 250 mls/hr ONCE ONCE IV ; Start 08/19/16 at 14:15; Stop 08/19/16 at 15:14; Status UNV Pharmacy Profile Note 0 ml @ 0 mls/hr UNSCH OTHER ; Start 08/19/16 at 14:15; Stop 08/20/16 at 13:31; Status DC Vancomycin HCl/ Sodium Chloride (Vancomycin Inj/ NS 500 ml Inj) 512.5 ml @ 250 mls/hr Q12H IV Last administered on 08/20/16 06:53; Start 08/19/16 at 16:00; Stop 08/20/16 at 11:34; Status DC Miscellaneous Information SPECIFIC LAB TO BE DRAWN:VANCOMYCIN DATE TO BE DR... ONCE ONCE .XX ; Start 08/21/16 at 03:45; Stop 08/21/16 at 03:46; Status Cancel Diphenhydramine HCl 25 mg 25 mg ONCE ONCE PO Last administered on 08/19/16 23 :33; Start 08/19/16 at 23:15; Stop 08/19/16 at 23:16; Status DC Vancomycin HCl/ Sodium Chloride (Vancomycin Inj/ NS 250 ml Inj) 262.5 ml @ 250 mls/hr Q12H IV ; Start 08/20/16 at 16:00; Stop 08/20/16 at 16:00; Status DC Metronidazole (Flagyl) 500 mg Q8HR PO Last administered on 08/25/16 05:40; Start 08/20/16 at 14:00; Stop 08/25/16 at 10:31; Status DC Prednisone (Deltasone) 20 mg BID PO Last administered on 08/24/16 08:27; Start 08/20/16 at 21:00; Stop 08/24/16 at 15:05; Status DC Enalaprilat (Vasotec Inj) 1.25 mg Q6H PRN IV PUSH SBP>180 or DBP>100; Start at 14:00 Amlodipine Besylate (Norvasc) 5 mg DAILY PO Last administered on 08/31/16 08:40 ; Start 08/21/16 at 15:00 Temazepam (Restoril) 7.5 mg ONCE ONCE PO Last administered on 08/21/16 21:58 ; Start 08/21/16 at 20:00; Stop 08/21/16 at 20:01; Status DC Potassium Chloride (KCl) 40 meq ONCE ONCE PO Last administered on 08/22/16 17 :30; Start 08/22/16 at 16:45; Stop 08/22/16 at 16:46; Status DC Levofloxacin (Levaquin) 750 mg DAILY PO Last administered on 08/25/16 08:36; Start 08/23/16 at 13:00; Stop 08/25/16 at 10:31; Status DC Albuterol/ Ipratropium (Duoneb Neb) 1 ampule QID NEB PRN NEB wheezing Last administered on 08/23/16 17:47; Start 08/23/16 at 15:00; Stop 08/27/16 at 16:46; Status DC Metoprolol Tartrate (Lopressor) 12.5 mg Q12HR PO Last administered on 08/30/16 20:17; Start 08/23/16 at 21:00; Stop 08/30/16 at 22:54; Status DC Metoprolol Tartrate (Lopressor) 12.5 mg ONCE ONCE PO Last administered on 18:59; Start 08/23/16 at 17:30; Stop 08/23/16 at 17:41; Status DC Miscellaneous (Pill Splitter) 1 ea UNSCH PRN OTHER SEE LABEL COMMENTS; Start at 17:45 Prednisone 10 mg 10 mg BID PO Last administered on 08/30/16 08:44; Start at 21:00; Stop 08/30/16 at 13:13; Status DC Lactated Ringer's 1,000 ml @ 30 mls/hr Q24H PRN IV SEE LABEL COMMENTS; Start at 03:30; Stop 08/28/16 at 03:29; Status DC Sodium Chloride (NS 500 ml Inj) 500 ml @ 30 mls/hr [id number] PRN IV SEE LABEL COMMENTS; Start 08/25/16 at 03:30; Stop 08/28/16 at 03:29; Status DC Metoprolol Tartrate (Lopressor) 25 mg CONVENTIONAL MACHINIST PRN PO SEE LABEL COMMENTS; Start 08/25/16 at 03:30; Stop 08/28/16 at 03:29; Status DC Povidone Iodine (Betadine 5% Antisepsis Kit) 1 applic CONVENTIONAL MACHINIST PRN EACH NARE SEE LABEL COMMENTS; Start 08/25/16 at 03:30; Stop 08/28/16 at 03:29; Status DC Chlorhexidine Gluconate 3 pack 3 pack CONVENTIONAL MACHINIST PRN TOPICAL SEE LABEL COMMENTS; Start 08/25/16 at 03:30; Stop 08/28/16 at 03:29; Status DC Levofloxacin/ Dextrose 150 ml @ 100 mls/hr Q24H IV Last administered on 09:23; Start 08/26/16 at 09:00; Stop 08/27/16 at 12:00; Status DC Metronidazole (Flagyl 500 Mg Inj) 100 ml @ 100 mls/hr Q8H IV Last administered on 08/27/16 22:11; Start 08/25/16 at 14:00; Stop 08/27/16 at 23:55; Status DC Bupivacaine HCl (Marcaine Pf 0.5% Inj) 30 ml STK-MED ONCE .ROUTE ; Start at 14:52; Stop 08/25/16 at 14:53; Status DC Sugammadex Sodium (Bridion Inj) 200 mg STK-MED ONCE IV PUSH ; Start 08/25/16 at 15:51; Stop 08/25/16 at 15:52; Status DC Bupivacaine HCl/ Epinephrine Bitart (Sensorcaine-Epinephrine Pf 0.25% Inj) 10 ml STK-MED ONCE INFIL Last administered on 08/25/16 15:45; Start 08/25/16 at 15: 45; Stop 08/25/16 at 16:12; Status DC Morphine Sulfate (*morphine INJ PERIprocedure ONLY) 8 mg STK-MED ONCE .ROUTE Last administered on 08/25/16 16:50; Start 08/25/16 at 16:50; Stop 08/25/16 at 16: 51; Status DC Ipratropium [place] (Atrovent Neb) 0.5 mg Q4HR NEB NEB Last administered on 15:28; Start 08/26/16 at 17:00; Stop 08/27/16 at 16:47; Status DC Budesonide (Pulmicort Respule Neb) 0.5 mg Q12HR NEB NEB Last administered on 08:16; Start 08/26/16 at 20:00 Guaifenesin (Mucinex Er) 600 mg BID PO Last administered on 08/31/16 08:41; Start 08/26/16 at 21:00 Albuterol/ Ipratropium 1 ampule 1 ampule Q4HR NEB NEB Last administered on 08/31 08:16; Start 08/27/16 at 20:00 Sodium Chloride 1,000 ml @ 999 mls/hr BOLUS ONCE IV Last administered on 13:46; Start 08/28/16 at 12:30; Stop 08/28/16 at 13:30; Status DC Sodium Chloride (NS 1000 ml Inj) 1,000 ml @ 100 mls/hr Q10H IV Last administered on 08/30/16 14:53; Start 08/28/16 at 12:30 Enoxaparin Sodium (Lovenox Inj) 40 mg Q24H SQ Last administered on 08/30/16 17: 14; Start 08/28/16 at 17:00 Hydromorphone HCl (Dilaudid Pf Inj) 0.5 mg Q4H PRN IV PUSH PAIN SCALE 6 TO 10 Last administered on 08/30/16 18:44; Start 08/29/16 at 12:15 Prednisone (Deltasone) 5 mg BID PO Last administered on 08/31/16 08:41; Start 08/30/16 at 21:00 Famotidine (Pepcid) 20 mg BID PO Last administered on 08/31/16 08:41; Start 08/30/16 at 13:15 Acetaminophen (Tylenol) 650 mg ONCE ONCE PO Last administered on 08/30/16 23: 01; Start 08/30/16 at 23:00; Stop 08/30/16 at 23:01; Status DC Metoprolol Tartrate (Lopressor) 25 mg Q12HR PO Last administered on 08/31/16 08 :41; Start 08/31/16 at 09:00 Ibuprofen (Motrin) 400 mg ONCE PO Last administered on 08/31/16 00:42; Start at 00:30; Stop 08/31/16 at 03:00; Status DC A/P Problem List: (1) Abdominal pain ICD Code: R10.9 Status: Acute Assessment and Plan 56-year-old female with history of CBD stricture s/p ERCP with stent placement 1 week ago from admission presents with abdominal pain, nausea/ vomiting 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 -Imaging reviewed: CT abd showed silastic biliary stent now present and appears appropriately positioned; Decreased intrahepatic biliary distention, now mild; Increased ascites, moderate; mild to moderate body wall edema/anasarca developing; Mild enteritis/colitis possible versus reactive wall thickening from the ascites. HIDA 08/10 shows nonvisualization of the gallbladder. -Consulted gastroenterology, per Dr. Whitehead signed off. -Surgical oncology, Dr. Wylie, consulted. Not a good surgical candidate for cholecystectomy at this time. Symptoms not c/w cholecystitis at this time. -s/p U/S guided abdominal paracentesis 08/11 removed 5L green cloudy fluid, WBC 1320, RBC 897. -tumor markers remarkable for CA-125 elevated at 338, culture negative. -Diuresis with Lasix and Aldactone for ascites -Palliative care oncology following. -Patient had repeat paracentesis done on 08/16/2016. -Patient had ERCP/EUS done today on 08/17/2016. -repeat cytology positive for non-small cell neoplasm. GI signed off. -supportive treatment with pain control and antiemetics prn. Simethicone prn. -s/p Diagnostic and staging laparoscopies and Peritoneal biopsy 08/26/2016 showing adenocarcinoma. -Dr. Stern explained diagnosis, prognosis and management. Patient opted for hospice. -I d/w patient and she stated that she cannot take care of herself at home and wants to go to a facility for hospice care. -d/w case management in regards to her wishes. Respiratory failure with hypoxia -Occurred after ERCP/EUS -had some wheezing so started on Solu-Medrol and nebulizers. -Improved now on nasal cannula. Treatment as below. -Since clinically exam has improved weaning off of solumedrol. Acute Colitis: seen on CT abdomen as above RESOLVED -On IV Cipro/Flagyl for gastroenterology which was d/leny -diet as tolerated per gastroenterology -Recommending eating small portions to avoid simulating pain. -GI signed off. Recent High Grade CBD Stricture: -s/p ERCP with stent placement 07/31. Pathology revealed rare atypical cells present in the background of numerous glandular epithelial cells, malignancy cannot be excluded. LFTs have been trending down since stent placement. CT abd showed biliary stent appropriately positioned, decreased biliary distention, no pancreatitis. -Gastroenterology on board -Continue to monitor LFTs, stable, follow-up CMP. Sepsis: -May be secondary to aspiration pneumonia. Chest x-ray shows bilateral pleural effusion more in the left side in the right and left-sided infiltrate. -Managed by infectious disease. completed antibiotics course on 08/27/16. -Clinically improving. Left-sided pneumonia. -See treatment as above. Hyponatremia: likely secondary to dehydration -Na 129 upon arrival -s/p IVF Hypokalemia -replenished on as needed DVT prophylaxiswith Lovenox Discharge Planning Poor prognosis and can only offer palliative treatment. patient wish to go to a hospice care facility. d/w case management to page me when patient has a bed so patient can be discharge to inpatient hospice. Problem Qualifiers (1) Abdominal pain: Qualified Code: R10.11 - Right upper quadrant abdominal pain Maddie Jewell MD August 31, 2016 12:37
[2016-08-31] MEDS: ENOXAPARIN SODIUM 40 MG/0.4 ML SYRINGE SQ SCH (17:49)
[2016-08-31] MEDS: SODIUM CHLOR 0.9% 1000 ML INJ 1,000 ML IV SCH (17:54)
[2016-08-31] MEDS ORDERED: CEFEPIME INJ 2,000 MG in SODIUM CHLORIDE 0.9% INJ 100 ML IV ONE (21:00)
[2016-08-31] MEDS ORDERED: metroNIDAZOLE 500 MG INJ 100 ML IV ONE (21:00)
[2016-08-31] MEDS: IBUPROFEN 400 MG TAB PO PRN (21:07)
[2016-08-31] MEDS: ONDANSETRON HCL 4 MG/2 ML VIAL IV PUSH PRN (21:07)
[2016-09-01] VITALS (15 sets, daily range): BP systolic 110–133; BP diastolic 60–78; PULSE 90–190; RESP 16–22; TEMP 96.2–101.1; O2SAT 93–99
[2016-09-01] MEDS: SODIUM CHLOR 0.9% 1000 ML INJ 1,000 ML IV SCH ×4 (06:30→18:49)
[2016-09-01] MEDS: RESP: BUDESONIDE 0.5 MG/2 ML NEB NEB SCH ×2 (07:46→20:00)
[2016-09-01] MEDS: PANTOPRAZOLE SOD 40 MG DELAYED RELEASE TAB PO SCH (10:05)
[2016-09-01] MEDS: predniSONE 5 MG TAB PO SCH ×2 (10:06→20:51)
[2016-09-01] MEDS: amLODIPine BESYLATE 5 MG TAB PO SCH (10:06)
[2016-09-01] MEDS: FAMOTIDINE 20 MG TAB PO SCH ×2 (10:06→20:50)
[2016-09-01] MEDS: FUROSEMIDE 20 MG TAB PO SCH ×2 (10:06→18:41)
[2016-09-01] MEDS: METOPROLOL TARTRATE 25 MG TAB PO SCH ×2 (10:06→20:50)
[2016-09-01] MEDS: guaiFENesin E.R. 600 MG TAB PO SCH ×2 (10:07→20:50)
[2016-09-01] MEDS: SODIUM CHLORIDE 0.9% FLUSH 10 ML FLUSH IV FLUSH SCH ×2 (10:14→20:51)
[2016-09-01] MEDS: SPIRONOLACTONE 25 MG TAB PO SCH ×2 (10:14→18:41)
[2016-09-01] MEDS ORDERED: VANCOMYCIN INJ 1,000 MG in SODIUM CHLOR 0.9% 250 ML INJ 250 ML IV ONE (11:00)
[2016-09-01] MEDS ORDERED: Vancomycin Consult Pharmacy 1 EA OTHER SCH (11:00)
--- NOTE | 2016-09-01 11:34 | HHI.PR ---
Subjective Remarks Follow-up for metastatic adenocarcinoma Patient spiked fever last night. Blood cultures were obtained. One out of 4 blood cultures positive. Patient's [id number] at the bedside. They declined video translation and [id number] stated that she will translate. Patient continues to want hospice. Difficulty with placement due to resources. I told patient in regards to her fever and blood cultures and she stated that she is okay with treatment we can get her out on oral medication. Patient stated that nausea and abdominal pain are intermittent. I asked if she wanted me to change her regimen to have it better controlled and she stated no. Objective Vitals Vital Signs Date Time Temp Pulse Resp B/P Pulse Ox O2 Delivery O2 Flow Rate FiO2 09/01/16 10:29 104 09/01/16 08:00 97.5 93 16 112/62 97 09/01/16 07:47 96 Nasal Cannula 3.00 09/01/16 06:00 96.2 90 17 110/72 97 09/01/16 00:00 98.0 98 17 111/66 97 08/31/16 23:00 98.9 08/31/16 22:30 170 08/31/16 21:08 Nasal Cannula 3.00 08/31/16 20:20 114 08/31/16 20:00 101.7 119 18 168/96 92 08/31/16 19:44 91 Nasal Cannula 3.00 08/31/16 16:00 98.4 93 20 126/67 96 08/31/16 13:33 97.0 102 20 123/72 95 08/31/16 13:11 Nasal Cannula 2.00 08/31/16 13:07 90 I/O 08/31/16 08/31/16 08/31/16 09/01/16 09/01/16 09/01/16 07:00 15:00 23:00 07:00 15:00 23:00 Intake Total 240 ml 1000 ml Balance 240 ml 1000 ml Intake Oral 240 ml IV Total 1000 ml # Voids 1 2 4 4 # Bowel Movements 0 Result Diagram: 08/31/16 0145 08/31/16 0145 Objective Remarks Gen in NAD Neck: Supple, airway patent. Lungs: good kelly air movement. Heart: Clear tones, NL S1S2, No JVD Abdomen: Soft, tender epigastric area, no peritoneal irritation, BS few. Extremities: Warm, flushed. Neuro: Awake alert oriented 3. Moves 4 limbs. Medications and IVs Current Medications Morphine Sulfate (Morphine Inj) 4 mg ONCE ONCE IV PUSH Last administered on 16:39; Start 08/09/16 at 16:15; Stop 08/09/16 at 16:16; Status DC Ondansetron HCl 4 mg 4 mg ONCE ONCE IVP Last administered on 08/09/16 16:38; Start 08/09/16 at 16:15; Stop 08/09/16 at 16:16; Status DC Sodium Chloride (NS 1000 ml Inj) 1,000 ml @ 1,000 mls/hr Q1H IV Last administered on 08/09/16 16:39; Start 08/09/16 at 16:03; Stop 08/09/16 at 17:02 ; Status DC Sodium Chloride (NS Flush) 2 ml UNSCH PRN IV FLUSH FLUSH AFTER USING IV ACCESS Last administered on 08/09/16 20:01; Start 08/09/16 at 16:15; Stop 08/10/16 at 11:08; Status DC Ketorolac Tromethamine (Toradol Inj) 30 mg ONCE ONCE IVP Last administered on 08/09/16 16:38; Start 08/09/16 at 16:15; Stop 08/09/16 at 16:16; Status DC Iohexol 85 ml 85 ml STK-MED ONCE IV Last administered on 08/09/16 17:50; Start 08/09/16 at 17:50; Stop 08/09/16 at 17:51; Status DC Vancomycin HCl 1000 mg/Sodium Chloride 250 ml @ 250 mls/hr ONCE STAT IV Last administered on 08/09/16 20:01; Start 08/09/16 at 18:42; Stop 08/09/16 at 19:41 ; Status DC Aztreonam 2000 mg/ Sodium Chloride 100 ml @ 200 mls/hr ONCE STAT IV Last administered on 08/09/16 20:51; Start 08/09/16 at 18:42; Stop 08/09/16 at 19:11 ; Status DC Metronidazole (Flagyl 500 Mg Inj) 100 ml @ 100 mls/hr ONCE STAT IV Last administered on 08/09/16 20:01; Start 08/09/16 at 18:42; Stop 08/09/16 at 19:41 ; Status DC Sodium Chloride (NS Flush) 2 ml UNSCH PRN IV FLUSH FLUSH AFTER USING IV ACCESS Last administered on 08/22/16 23:00; Start 08/09/16 at 20:45 Sodium Chloride (NS Flush) 2 ml BID IV FLUSH Last administered on 09/01/16 10: 14; Start 08/09/16 at 21:00 Naloxone HCl (Narcan Inj) 0.4 mg UNSCH PRN IV SEE LABEL COMMENTS; Start at 20:45 Hydromorphone HCl 0.2 mg 0.2 mg Q4H PRN IV PUSH PAIN SCALE 1 TO 5 Last administered on 08/31/16 00:09; Start 08/09/16 at 23:45 Ciprofloxacin/ Dextrose 200 ml @ 200 mls/hr Q12H IV Last administered on 04:38; Start 08/10/16 at 05:00; Stop 08/17/16 at 21:30; Status DC Metronidazole (Flagyl 500 Mg Inj) 100 ml @ 100 mls/hr Q6H IV Last administered on 08/20/16 11:20; Start 08/10/16 at 06:00; Stop 08/20/16 at 13:33 ; Status DC Pantoprazole Sodium (Protonix) 40 mg DAILY PO Last administered on 09/01/16 10 :05; Start 08/10/16 at 09:00 Morphine Sulfate 2 mg 2 mg Q3H PRN IV PUSH pain >5 Last administered on 18:39; Start 08/10/16 at 08:00; Stop 08/12/16 at 07:21; Status DC Sodium Chloride (NS 1000 ml Inj) 1,000 ml @ 75 mls/hr [id number] IV Last administered on 08/12/16 05:08; Start 08/10/16 at 11:17; Stop 08/12/16 at 13:58 ; Status DC Simethicone (Mylicon Chew) 80 mg ONCE ONCE CHEW Last administered on 15:23; Start 08/12/16 at 14:00; Stop 08/12/16 at 14:01; Status DC Simethicone (Mylicon Chew) 80 mg PCHS PRN CHEW BLOATING; Start 08/12/16 at 14: 00 Furosemide (Lasix) 20 mg BID@09,18 PO Last administered on 09/01/16 10:06; Start 08/13/16 at 15:45 Potassium Chloride (KCl) 20 meq ONCE ONCE PO Last administered on 08/13/16 16 :00; Start 08/13/16 at 15:45; Stop 08/13/16 at 15:46; Status DC Spironolactone (Aldactone) 25 mg BID@,18 PO Last administered on 09/01/16 10 :14; Start 08/14/16 at 09:00 Iohexol (Omnipaque 350 Inj) 50 ml STK-MED ONCE IV Last administered on 08:01; Start 08/15/16 at 08:01; Stop 08/15/16 at 08:02; Status DC Clonidine (Catapres) 0.1 mg ONCE ONCE PO Last administered on 08/16/16 04:13 ; Start 08/16/16 at 04:00; Stop 08/16/16 at 04:01; Status DC Propofol (Diprivan 200 Mg/20 ml Inj) 450 mg STK-MED ONCE IV ; Start 08/17/16 at 14:14; Stop 08/17/16 at 15:01; Status DC Fentanyl Citrate (fentaNYL INJ) 100 mcg STK-MED ONCE .ROUTE ; Start 08/17/16 at 15:02; Stop 08/17/16 at 15:03; Status DC Miscellaneous Information ALL NURSING DEPARTME... UNSCH PRN .XX SEE LABEL COMMENTS; Start 08/17/16 at 14:58; Stop 08/18/16 at 14:57; Status DC Albuterol/ Ipratropium (Duoneb Neb) 1 ampule Q4HR NEB NEB Last administered on 08/21/16 15:06; Start 08/17/16 at 18:00; Stop 08/21/16 at 18:00; Status DC Methylprednisolone Sodium Succinate (SoluMEDROL INJ) 125 mg ONCE ONCE IV PUSH Last administered on 08/17/16 18:20; Start 08/17/16 at 18:30; Stop 08/17/16 at 18:31; Status DC Methylprednisolone Sodium Succinate (SoluMEDROL INJ) 60 mg Q6HR IV PUSH Last administered on 08/20/16 11:23; Start 08/18/16 at 00:00; Stop 08/20/16 at 14:02 ; Status DC Albuterol Sulfate (Albuterol Neb) 2.5 mg Q4HR NEB PRN INH SHORTNESS OF BREATH; Start 08/17/16 at 18:15; Stop 08/21/16 at 18:15; Status DC Metoprolol Tartrate (Lopressor) 25 mg Q12HR PO Last administered on 08/23/16 10 :02; Start 08/17/16 at 21:00; Stop 08/23/16 at 17:42; Status DC Metoprolol Tartrate (Lopressor Inj) 5 mg Q6H PRN IV PUSH P > 130; Start at 18:45; Stop 08/19/16 at 21:23; Status DC Acetaminophen 1000 mg 1,000 mg ONCE ONCE IV Last administered on 08/17/16 19: 03; Start 08/17/16 at 19:00; Stop 08/17/16 at 19:01; Status DC Cefepime HCl/ Sodium Chloride (Maxipime Inj/NS Inj) 100 ml @ 200 mls/hr Q12H IV Last administered on 08/23/16 10:02; Start 08/17/16 at 22:00; Stop 08/23/16 at 12:16; Status DC Diphenhydramine HCl (Benadryl Inj) 25 mg Q6H PRN IV PUSH hives, itching; Start 08/17/16 at 22:00 Miscellaneous Information Patient in critical care unit? Ass... [id number] .XX ; Start 08/18/16 at 02:30 Chlorhexidine Gluconate (Chlorhexidine 2% Cloth) 3 pack DAILY@04 TOPICAL Last administered on 08/22/16 04:00; Start 08/18/16 at 04:00; Stop 08/22/16 at 04:01 ; Status DC Chlorhexidine Gluconate (Chlorhexidine 2% Cloth) 3 pack UNSCH PRN TOPICAL HYGIENIC CARE; Start 08/18/16 at 02:30; Stop 08/23/16 at 02:15; Status DC Potassium Bicarb/ Potassium Chloride 25 meq 25 meq ONCE ONCE PO Last administered on 08/19/16 10:00; Start 08/19/16 at 09:00; Stop 08/19/16 at 09:01 ; Status DC Vancomycin HCl 1000 mg/Sodium Chloride 250 ml @ 250 mls/hr ONCE ONCE IV ; Start 08/19/16 at 14:15; Stop 08/19/16 at 15:14; Status UNV Pharmacy Profile Note 0 ml @ 0 mls/hr UNSCH OTHER ; Start 08/19/16 at 14:15; Stop 08/20/16 at 13:31; Status DC Vancomycin HCl/ Sodium Chloride (Vancomycin Inj/ NS 500 ml Inj) 512.5 ml @ 250 mls/hr Q12H IV Last administered on 08/20/16 06:53; Start 08/19/16 at 16:00; Stop 08/20/16 at 11:34; Status DC Miscellaneous Information SPECIFIC LAB TO BE DRAWN:VANCOMYCIN DATE TO BE DR... ONCE ONCE .XX ; Start 08/21/16 at 03:45; Stop 08/21/16 at 03:46; Status Cancel Diphenhydramine HCl 25 mg 25 mg ONCE ONCE PO Last administered on 08/19/16 23 :33; Start 08/19/16 at 23:15; Stop 08/19/16 at 23:16; Status DC Vancomycin HCl/ Sodium Chloride (Vancomycin Inj/ NS 250 ml Inj) 262.5 ml @ 250 mls/hr Q12H IV ; Start 08/20/16 at 16:00; Stop 08/20/16 at 16:00; Status DC Metronidazole (Flagyl) 500 mg Q8HR PO Last administered on 08/25/16 05:40; Start 08/20/16 at 14:00; Stop 08/25/16 at 10:31; Status DC Prednisone (Deltasone) 20 mg BID PO Last administered on 08/24/16 08:27; Start 08/20/16 at 21:00; Stop 08/24/16 at 15:05; Status DC Enalaprilat (Vasotec Inj) 1.25 mg Q6H PRN IV PUSH SBP>180 or DBP>100; Start at 14:00 Amlodipine Besylate (Norvasc) 5 mg DAILY PO Last administered on 09/01/16 10: 06; Start 08/21/16 at 15:00 Temazepam (Restoril) 7.5 mg ONCE ONCE PO Last administered on 08/21/16 21:58 ; Start 08/21/16 at 20:00; Stop 08/21/16 at 20:01; Status DC Potassium Chloride (KCl) 40 meq ONCE ONCE PO Last administered on 08/22/16 17 :30; Start 08/22/16 at 16:45; Stop 08/22/16 at 16:46; Status DC Levofloxacin (Levaquin) 750 mg DAILY PO Last administered on 08/25/16 08:36; Start 08/23/16 at 13:00; Stop 08/25/16 at 10:31; Status DC Albuterol/ Ipratropium (Duoneb Neb) 1 ampule QID NEB PRN NEB wheezing Last administered on 08/23/16 17:47; Start 08/23/16 at 15:00; Stop 08/27/16 at 16:46; Status DC Metoprolol Tartrate (Lopressor) 12.5 mg Q12HR PO Last administered on 08/30/16 20:17; Start 08/23/16 at 21:00; Stop 08/30/16 at 22:54; Status DC Metoprolol Tartrate (Lopressor) 12.5 mg ONCE ONCE PO Last administered on 18:59; Start 08/23/16 at 17:30; Stop 08/23/16 at 17:41; Status DC Miscellaneous (Pill Splitter) 1 ea UNSCH PRN OTHER SEE LABEL COMMENTS; Start at 17:45 Prednisone 10 mg 10 mg BID PO Last administered on 08/30/16 08:44; Start at 21:00; Stop 08/30/16 at 13:13; Status DC Lactated Ringer's 1,000 ml @ 30 mls/hr Q24H PRN IV SEE LABEL COMMENTS; Start at 03:30; Stop 08/28/16 at 03:29; Status DC Sodium Chloride (NS 500 ml Inj) 500 ml @ 30 mls/hr [id number] PRN IV SEE LABEL COMMENTS; Start 08/25/16 at 03:30; Stop 08/28/16 at 03:29; Status DC Metoprolol Tartrate (Lopressor) 25 mg CASH APPLICATION CLERK PRN PO SEE LABEL COMMENTS; Start 08/25/16 at 03:30; Stop 08/28/16 at 03:29; Status DC Povidone Iodine (Betadine 5% Antisepsis Kit) 1 applic C[employer] APPLICATION CLERK PRN EACH NARE SEE LABEL COMMENTS; Start 08/25/16 at 03:30; Stop 08/28/16 at 03:29; Status DC Chlorhexidine Gluconate 3 pack 3 pack C[employer] APPLICATION CLERK PRN TOPICAL SEE LABEL COMMENTS; Start 08/25/16 at 03:30; Stop 08/28/16 at 03:29; Status DC Levofloxacin/ Dextrose 150 ml @ 100 mls/hr Q24H IV Last administered on 09:23; Start 08/26/16 at 09:00; Stop 08/27/16 at 12:00; Status DC Metronidazole (Flagyl 500 Mg Inj) 100 ml @ 100 mls/hr Q8H IV Last administered on 08/27/16 22:11; Start 08/25/16 at 14:00; Stop 08/27/16 at 23:55; Status DC Bupivacaine HCl (Marcaine Pf 0.5% Inj) 30 ml STK-MED ONCE .ROUTE ; Start at 14:52; Stop 08/25/16 at 14:53; Status DC Sugammadex Sodium (Bridion Inj) 200 mg STK-MED ONCE IV PUSH ; Start 08/25/16 at 15:51; Stop 08/25/16 at 15:52; Status DC Bupivacaine HCl/ Epinephrine Bitart (Sensorcaine-Epinephrine Pf 0.25% Inj) 10 ml STK-MED ONCE INFIL Last administered on 08/25/16 15:45; Start 08/25/16 at 15: 45; Stop 08/25/16 at 16:12; Status DC Morphine Sulfate (*morphine INJ PERIprocedure ONLY) 8 mg STK-MED ONCE .ROUTE Last administered on 08/25/16 16:50; Start 08/25/16 at 16:50; Stop 08/25/16 at 16: 51; Status DC Ipratropium [place] (Atrovent Neb) 0.5 mg Q4HR NEB NEB Last administered on 15:28; Start 08/26/16 at 17:00; Stop 08/27/16 at 16:47; Status DC Budesonide (Pulmicort Respule Neb) 0.5 mg Q12HR NEB NEB Last administered on 19:44; Start 08/26/16 at 20:00 Guaifenesin (Mucinex Er) 600 mg BID PO Last administered on 09/01/16 10:07; Start 08/26/16 at 21:00 Albuterol/ Ipratropium 1 ampule 1 ampule Q4HR NEB NEB Last administered on 08/31 19:44; Start 08/27/16 at 20:00; Stop 08/31/16 at 20:00; Status DC Sodium Chloride 1,000 ml @ 999 mls/hr BOLUS ONCE IV Last administered on 13:46; Start 08/28/16 at 12:30; Stop 08/28/16 at 13:30; Status DC Sodium Chloride (NS 1000 ml Inj) 1,000 ml @ 100 mls/hr Q10H IV Last administered on 09/01/16 10:15; Start 08/28/16 at 12:30 Enoxaparin Sodium (Lovenox Inj) 40 mg Q24H SQ Last administered on 08/31/16 17: 49; Start 08/28/16 at 17:00 Hydromorphone HCl (Dilaudid Pf Inj) 0.5 mg Q4H PRN IV PUSH PAIN SCALE 6 TO 10 Last administered on 08/30/16 18:44; Start 08/29/16 at 12:15 Prednisone (Deltasone) 5 mg BID PO Last administered on 09/01/16 10:06; Start 08/30/16 at 21:00 Famotidine (Pepcid) 20 mg BID PO Last administered on 09/01/16 10:06; Start at 13:15 Acetaminophen (Tylenol) 650 mg ONCE ONCE PO Last administered on 08/30/16 23: 01; Start 08/30/16 at 23:00; Stop 08/30/16 at 23:01; Status DC Metoprolol Tartrate (Lopressor) 25 mg Q12HR PO Last administered on 09/01/16 10:06; Start 08/31/16 at 09:00 Ibuprofen 400 mg 400 mg ONCE PO Last administered on 08/31/16 00:42; Start 08/31 at 00:30; Stop 08/31/16 at 03:00; Status DC Metronidazole 100 ml @ 100 mls/hr ONCE ONCE IV Last administered on 08/31/16 21:07; Start 08/31/16 at 21:00; Stop 08/31/16 at 21:59; Status DC Cefepime HCl/ Sodium Chloride (Maxipime Inj/NS Inj) 100 ml @ 200 mls/hr ONCE ONCE IV Last administered on 08/31/16 22:18; Start 08/31/16 at 21:00; Stop at 21:29; Status DC Ibuprofen (Motrin) 400 mg Q6H PRN PO fever >101 Last administered on 08/31/16 21:07; Start 08/31/16 at 21:00 Ondansetron HCl 4 mg 4 mg Q6HR PRN IV PUSH nausea Last administered on 21:07; Start 08/31/16 at 21:00 Vancomycin HCl 1000 mg/Sodium Chloride 250 ml @ 250 mls/hr ONCE ONCE IV ; Start 09/01/16 at 11:00; Stop 09/01/16 at 11:59; Status UNV Pharmacy Profile Note 0 ml @ 0 mls/hr UNSCH OTHER ; Start 09/01/16 at 11:00 Vancomycin HCl/ Sodium Chloride (Vancomycin Inj/ NS 250 ml Inj) 262.5 ml @ 250 mls/hr Q12H IV ; Start 09/01/16 at 13:00 Miscellaneous Information SPECIFIC LAB TO BE DRAWN:VANCOMYCIN TROUGH DATE TO... 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 -Imaging reviewed: CT abd showed silastic biliary stent now present and appears appropriately positioned; Decreased intrahepatic biliary distention, now mild; Increased ascites, moderate; mild to moderate body wall edema/anasarca developing; Mild enteritis/colitis possible versus reactive wall thickening from the ascites. HIDA 4/18 shows nonvisualization of the gallbladder. -Consulted gastroenterology, per Dr. Whitehead signed off. -Surgical oncology, Dr. Wylie, consulted. Not a good surgical candidate for cholecystectomy at this time. Symptoms not c/w cholecystitis at this time. -s/p U/S guided abdominal paracentesis 08/11 removed 5L green cloudy fluid, WBC 1320, RBC 897. -tumor markers remarkable for CA-125 elevated at 338, culture negative. -Diuresis with Lasix and Aldactone for ascites -Palliative care oncology following. -Patient had repeat paracentesis done on 08/16/2016. -Patient had ERCP/EUS done today on 08/17/2016. -repeat cytology positive for non-small cell neoplasm. GI signed off. -supportive treatment with pain control and antiemetics prn. Simethicone prn. -s/p Diagnostic and staging laparoscopies and Peritoneal biopsy 08/26/2016 showing adenocarcinoma. -Dr. Stern explained diagnosis, prognosis and management. Patient opted for hospice. -Patient wants inpatient hospice. At the moment I don't with case management she does not qualify for any inpatient facility at the moment. Fever on [id number] -One out of 4 blood cultures positive showing gram positive cocci. -Start vancomycin. -Reconsult infectious disease. -Patient stated that she does want to treat it as long as she can be discharged on oral medication. Respiratory failure with hypoxia -Occurred after ERCP/EUS -Patient is being tapered off prednisone. Acute Colitis: seen on CT abdomen as above RESOLVED -On IV Cipro/Flagyl for gastroenterology which was d/leny -diet as tolerated per gastroenterology -Recommending eating small portions to avoid simulating pain. -GI signed off. Recent High Grade CBD Stricture: -s/p ERCP with stent placement 07/31. Pathology revealed rare atypical cells present in the background of numerous glandular epithelial cells, malignancy cannot be excluded. LFTs have been trending down since stent placement. CT abd showed biliary stent appropriately positioned, decreased biliary distention, no pancreatitis. -Gastroenterology on board -Continue to monitor LFTs, stable, follow-up CMP. Sepsis: -May be secondary to aspiration pneumonia. Chest x-ray shows bilateral pleural effusion more in the left side in the right and left-sided infiltrate. -Managed by infectious disease. completed antibiotics course on 08/27/16. -Clinically improving. Left-sided pneumonia. -See treatment as above. Hyponatremia: likely secondary to dehydration -Na 129 upon arrival -s/p IVF Hypokalemia -replenished on as needed DVT prophylaxiswith Lovenox Discharge Planning Poor prognosis and can only offer palliative treatment. patient wish to go to a hospice care facility. At the moment patient does not have any acceptance to inpatient facility. She also had fever and 1 positive culture. Patient stated her goal is to go to inpatient hospice facility and treated with oral antibiotics. Problem Qualifiers (1) Abdominal pain: Qualified Code: R10.11 - Right upper quadrant abdominal pain Maddie Jewell MD September 01, 2016 11:34
[2016-09-01] MEDS ORDERED: VANCOMYCIN INJ 1,250 MG in SODIUM CHLOR 0.9% 250 ML INJ 250 ML IV SCH (13:00)
[2016-09-01 14:09] LABS: C. DIFF EPI 027 PRESUMPTIVE NEGATIVE (NEGATIVE); C. DIFF TOXIN PCR NEGATIVE (NEGATIVE)
[2016-09-01] MEDS: IBUPROFEN 400 MG TAB PO PRN (15:28)
[2016-09-01] MEDS: ENOXAPARIN SODIUM 40 MG/0.4 ML SYRINGE SQ SCH (15:33)
[2016-09-01] MEDS: HYDROmorphone HCL PF 1 MG/ML VIAL IV PUSH PRN (15:34)
--- NOTE | 2016-09-01 16:17 | HHI.HCPN ---
Reason for visit a. To assist with evaluation and management of symptoms including: Pain, debility. b. To assist medical decision maker(s) with: better understanding of current medical conditions; weighing benefits/burdens of medical treatment options; making medical treatment decisions. . (Jamilah Dhillon) Subjective/Interval History Patient seen in her room. Patient is Uzbek speaker, no coal gasification technician needed or required as we both speak fluent Uzbek. Patient endorsing epigastric pain currently rated at 5/10. Pain is sharp, intermittent, exacerbated after meals and physical exertion and alleviated by rest and pain medication. Patient reporting headache, mild nausea but no vomiting. Reporting episodes of vomiting yesterday but none today. Increasing apnea episodes of diarrhea including an incontinence episode this morning. Stool sample today negative for C. difficile. No new laboratory or imaging. Patient febrile, Max temp 101.1 this afternoon. Slightly tachycardic with heart rate in the low 110s. Stable hemodynamically. Remains on oxygen via nasal cannula at 3 L. Blood culture 09/10/16 positive for group D enterococcus. Patient currently on vancomycin. No family at bedside during my visit. Patient's goals of care remains unchanged , goal is to discharge to hospice facility for pain and symptom management and end-of-life care. physician relations manager following, [facility] in [place] has been contacted. Ongoing emotional support and active listening provided. Patient verbalized appreciation for my visit today. . Family/friend interactions See interval note. . (Jamilah Dhillon) Advance Directives Living Will: Never completed Health Care Surrogate: Copy in medical record Durable Power of Master Tax Advisor: Never completed (Jamilah Dhillon) Advance Directive Specifics Date completed: 08/16/16. . Health Care Surrogate(s): Patient's brother Renee Hong, alternate Edgard Hong and Shaye Hong. . Documented care wishes: No living will completed. Patient declined completion at this time. . Significant change in goals: No code. DNR/DNI. Comfort directed care with hospice. . (Jamilah Dhillon) Objective Vital Signs Date Time Temp Pulse Resp B/P Pulse Ox O2 Delivery O2 Flow Rate FiO2 09/01/16 14:42 101.1 108 22 129/71 96 09/01/16 12:55 Nasal Cannula 3.00 30 09/01/16 12:00 96.8 98 18 123/60 96 09/01/16 10:29 104 09/01/16 08:00 97.5 93 16 112/62 97 09/01/16 07:47 96 Nasal Cannula 3.00 09/01/16 06:00 96.2 90 17 110/72 97 09/01/16 00:00 98.0 98 17 111/66 97 08/31/16 23:00 98.9 08/31/16 22:30 170 08/31/16 21:08 Nasal Cannula 3.00 08/31/16 20:20 114 08/31/16 20:00 101.7 119 18 168/96 92 08/31/16 19:44 91 Nasal Cannula 3.00 08/31/16 16:00 98.4 93 20 126/67 96 Intake & Output 09/01/16 09/01/16 07:00 19:00 Output Total 400 ml Balance -400 ml Output Urine Total 400 ml # Voids 5 # Bowel Movements 3 Physical Exam CONSTITUTIONAL/GENERAL: This is an adequately nourished patient, ill appearing in moderate distress secondary to pain. Holding her abdomen with both hands. TUBES/LINES/DRAINS: Peripheral IV SKIN: No jaundice, rashes, or lesions. Ecchymoses on upper extremities. No wounds seen anteriorly. Skin temperature appropriate. Not diaphoretic. HEAD: Atraumatic. Normocephalic. EYES: Pupils equal and round and reactive. Extraocular motions intact. No scleral icterus. No injection or drainage. ENT: Hearing grossly normal. Nose without bleeding or purulent drainage. Throat without visible erythema, exudates, masses, or lesions. NECK: Trachea midline. Supple, nontender. CARDIOVASCULAR: Regular rhythm, tachycardic with heart rate in the low 110s. No Murmurs, gallops, or rubs. No JVD. Peripheral pulses symmetric. RESPIRATORY/CHEST: Symmetric, unlabored respirations. Clear to auscultation. Breath sounds equal bilaterally. No wheezes, rales, or rhonchi. GASTROINTESTINAL: Abdomen soft, but moderately distended. No guarding, generalized tenderness. Bowel sounds present. GENITOURINARY: Without palpable bladder distension. MUSCULOSKELETAL: Extremities without clubbing, cyanosis, or edema. NEUROLOGICAL: Awake and alert. Motor and sensory grossly within normal limits. Follows commands. Cognitively sharp. Moves all extremities. PSYCHIATRIC: No obvious anxiety/depression. no apparent hallucinations or other psychotic thought process. . (Jamilah Dhillon) Diagnostic Tests Laboratory Laboratory Tests Test 08/31/16 08/31/16 09/01/16 01:45 06:30 11:10 White Blood Count 14.7 TH/MM3 (4.0-11.0) Red Blood Count 4.32 MIL/MM3 (4.00-5.30) Hemoglobin 12.4 GM/DL (11.6-15.3) Hematocrit 36.3 % (35.0-46.0) Mean Corpuscular Volume 84.1 FL (80.0-100.0) Mean Corpuscular Hemoglobin 28.7 PG (27.0-34.0) Mean Corpuscular Hemoglobin 34.1 % Concent (32.0-36.0) Red Cell Distribution Width 15.9 % (11.6-17.2) Platelet Count 235 TH/MM3 (150-450) Mean Platelet Volume 9.0 FL (7.0-11.0) Neutrophils (%) (Auto) 88.4 % (16.0-70.0) Lymphocytes (%) (Auto) 5.2 % (9.0-44.0) Monocytes (%) (Auto) 5.9 % (0.0-8.0) Eosinophils (%) (Auto) 0.0 % (0.0-4.0) Basophils (%) (Auto) 0.5 % (0.0-2.0) Neutrophils # (Auto) 13.0 TH/MM3 (1.8-7.7) Lymphocytes # (Auto) 0.8 TH/MM3 (1.0-4.8) Monocytes # (Auto) 0.9 TH/MM3 (0-0.9) Eosinophils # (Auto) 0.0 TH/MM3 (0-0.4) Basophils # (Auto) 0.1 TH/MM3 (0-0.2) CBC Comment DIFF FINAL Differential Comment Sodium Level 125 MEQ/L (136-145) Potassium Level 3.4 MEQ/L (3.5-5.1) Chloride Level 87 MEQ/L (98-107) Carbon Dioxide Level 27.8 MEQ/L (21.0-32.0) Anion Gap 10 MEQ/L (5-15) Blood Urea Nitrogen 10 MG/DL (7-18) Creatinine 0.44 MG/DL (0.50-1.00) Estimat Glomerular Filtration 147 ML/MIN Rate (>89) Random Glucose 114 MG/DL (74-106) Calcium Level 8.0 MG/DL (8.5-10.1) Total Bilirubin 1.5 MG/DL (0.2-1.0) Aspartate Amino Transf 177 U/L (15-37) (AST/SGOT) Alanine Aminotransferase 93 U/L (10-53) (ALT/SGPT) Alkaline Phosphatase 944 U/L (45-117) Total Protein 7.0 GM/DL (6.4-8.2) Albumin 2.4 GM/DL (3.4-5.0) Urine Color YELLOW (YELLW/STRAW) Urine Turbidity CLEAR (CLEAR) Urine pH 6.0 (5.0-8.5) Urine Specific [place] 1.007 (1.002-1.035) Urine Protein NEG mg/dL (NEG-TRACE) Urine Glucose (UA) NEG mg/dL (NEG) Urine Ketones NEG mg/dL (NEG) Urine Occult Blood NEG (NEG) Urine Nitrite NEG (NEG) Urine Bilirubin NEG (NEG) Urine Urobilinogen LESS THAN 2.0 MG/DL (LESS THAN 2.0) Urine Leukocyte Esterase NEG (NEG) Urine RBC LESS THAN 1 /hpf (0-3) Urine WBC LESS THAN 1 /hpf (0-5) Urine Squamous Epithelial <1 /hpf (0-5) Cells Urine Mucus FEW /lpf (OCC) Microscopic Urinalysis Comment CULT NOT INDICATED Stool C. difficile Toxin (PCR) NEGATIVE (NEGATIVE) Stl C. difficile Toxin PRESUMPTIVE Epiderm 027 NEGATIVE (NEGATIVE) (Jamilah Dhillon) Result Diagram: 08/31/16 0145 08/31/16 0145 Microbiology Microbiology Date/Time Procedure Status Source Growth 08/31/16 01:40 Aerobic Blood Culture - Preliminary Resulted Blood Peripheral Group D Enterococcus 08/31/16 01:40 Anaerobic Blood Culture - Final Resulted Blood Peripheral ONLY AEROBIC CULTURE ORDERED 08/31/16 01:45 Aerobic Blood Culture - Preliminary Resulted Blood Peripheral NO GROWTH IN 1 DAY 08/31/16 01:45 Anaerobic Blood Culture - Preliminary Resulted Blood Peripheral NO GROWTH IN 1 DAY Imaging Last Impressions Chest X-Ray 08/31/16 0000 Signed Impressions: Service Date/Time: Wednesday, August 31, 2016 06:41 - CONCLUSION: Unchanged bilateral pleural effusions and bibasilar infiltrates. Bert Nunes Jr., MD Cyst Biopsy Asp-Paracentesis US 08/16/16 0000 Signed Impressions: Service Date/Time: Tuesday, August 16, 2016 09:24 - CONCLUSION: Uncomplicated ultrasound guided paracentesis. Grady Wilson MD Pelvis Ultrasound 08/14/16 0000 Signed Impressions: Service Date/Time: Sunday, August 14, 2016 22:18 - CONCLUSION: 1. Moderate amount of ascites within the pelvis. 2. Lack of visualization of both ovaries. 3. No discrete mass observed. Bert Nunes Jr., MD Chest CT 08/14/16 0000 Signed Impressions: Service Date/Time: Monday, August 15, 2016 07:53 - CONCLUSION: Bilateral mild pleural effusions being greater on the right. Fadi Cordova MD Hepatobiliary Scan Nuclear Medicine 08/09/16 0000 Signed Impressions: Service Date/Time: Tuesday, August 09, 2016 20:50 - CONCLUSION: Nonvisualization of the gallbladder however the patient does have a stent in place. I reviewed the CT scan from the same day which failed to demonstrate any obvious gallbladder wall thickening. Delayed images of the gallbladder will be performed. Matt Tovar MD ADDENDUM: COMPARISON: BILIARY SCAN (HIDA), July 30, 2016, 13:41. A delayed image in anterior and right lateral projection was performed at 16 hours. There is no activity seen within the lumen of gallbladder. Since the patient has an indwelling biliary stent, absence of gallbladder visualization is nonpredictive with respect to cystic duct obstruction. Bert Brandon MD Abdomen/Pelvis CT 08/09/16 0000 Signed Impressions: Service Date/Time: Tuesday, August 09, 2016 17:46 - CONCLUSION: 1. Silastic biliary stent now present and appears appropriately positioned. Decreased intrahepatic biliary distention, now mild. No pancreatitis or other acute complication demonstrated. 2. Increased ascites, moderate. Also mild to moderate body wall edema/anasarca developing. 3. Mild enteritis/colitis possible versus reactive wall thickening from the ascites. In any event, no obstruction demonstrated. Fadi Yin MD Procedures * 08/11/16 -Paracentesis * 08/16/16 -EUS * 08/25/16 -Diagnostic laparoscopy with peritoneal biopsy . (Jamilah Dhillon) Assessment and Plan Disease Oriented Problem List: (1) non-small cell neoplasm in ascitic cytology (2) recent biliary obstruction, stent placement (3) abdominal pain (4) hyponatremia (5) cholelithiasis Symptom Scale: (1) pain 0-10 Scale: 5 Comment: Abdominal pain secondary to burden of disease, surgical intervention. (2) Nausea & vomiting 0-10 Scale: 4 Comment: Secondary to burden of disease. (3) Debility 0-10 Scale: Unable to quantify Comment: Secondary to burden of disease, prolonged hospitalization. Pertinent Non-Medical Issues Psychosocial: female who lives with her brother. Originally from [place] , Uz[place]-speaking. Her 2 children are in [place]. Spiritual: Spirituality is very important to her; she is Alevism. Legal: The patient has capacity for decision-making at this time. Designation of healthcare surrogate completed and in file. Ethical issues impacting care: None . Important Contacts HCS -brother Renee Hong Brother Edgard Hong Sister Shaye Hong . Prognosis The patient has had worsening abdominal pain, malignant ascites, and weight loss over the past couple months. She now has non-small cell malignant cells in her ascitic fluid, and it would appear that her prognosis is poor. Oncology following. . Code Status: No Code Plan * CODE STATUS: No code. DNR/DNI. Community DNR has been signed. * DECISION-MAKING: The patient has capacity for decision-making at this time. Designation are healthcare surrogate completed. Patient designated her brother Renee Hong as HCS, alternate -other 2 siblings Edgard Hong and Shaye Hong. * GOALS OF CARE: Given patient's terminal condition and poor prognosis for an improved quality of life, patient declining disease directed treatment in favor of supportive care/comfort-directed care for pain and symptom management with hospice services. Patient with a good understanding that disease directive treatment is not curative but palliative in nature which would offer only a slight prolongation of survival. * HOSPICE: Patient appropriate for hospice given her terminal condition. Prognosis of 6 months or less if illness run its natural course. Hospice referral has been made. Confirmed patient's place of residency in [place], [place]. physician relations manager to follow-up with local hospice in the area. * SYMPTOMS: == Abdominal pain: Secondary to burden of disease. Hydromorphone 0.5 mg available every 4 hours as needed. == Nausea: Secondary to burden of disease. Zofran available as needed. == Debility, secondary to burden of disease and prolonged hospitalization. * Extensive active listening provided, patient verbalized appreciation for my visit today. Ongoing emotional support provided. * Palliative care contact information has been provided. * Palliative Care will continue to follow up with patient during this hospitalization as the clinical course evolves. . (Jamilah Dhillon) Time Spent Total Floor Time (mins): 32 (Total time to include review of medical records, physical exam and goals of care discussion with patient.) >50% Counseling/Coord of Care: Yes (Jamilah Dhillon) Attestation To help prompt me to consider important information that might be impacting today's encounter and assessment, information from prior notes written by myself or my colleagues may have been "brought forward" into today's note. My signature on this note, however, is an attestation that I personally performed the exam, history, and/or decision-making noted today, and, unless otherwise indicated, the interactions with patient, family, and staff as well as the review of records all occurred today. I also attest that the listed assessment and stated plan reflect my best clinical judgment today based on the combination of historical information, prior notes, and today's exam/ interactions. When time spent is documented, it refers only to time spent today by the signer, or if indicated, combined time spent today by collaborating physician/nurse practitioner. (Jamilah Dhillon) Collaborating MD Comments . Chart reviewed. Case discussed with palliative care UNDERWRITING SPECIALIST. I have reviewed above UNDERWRITING SPECIALIST note and I concur. . (Jose Alejandro Gonzalez MD) Jamilah Dhillon September 01, 2016 16:17 Jose Alejandro Gonzalez MD September 21, 2016 12:28
--- NOTE | 2016-09-01 18:00 | HHI.IDPN ---
Subjective Subjective Remarks Reconsult for (+) BC Patient initially seen bu=josiane ID August 18 She is a 56-year-old female, presented to the hospital complaining of increasing abdominal pain for about 2 days. 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 She underwent ERCP, and stent placement. She was discharged to home. She came back with increased abdominal pain. She also noted increasing abdominal girth. She has not been able to eat because of early satiety. There was one episode of vomiting. And she has had some back pain. She denies any urinary complaints, or any significant diarrhea. There is been no mention of any fever or chills or sweats. Patient had some elevated LFTs. Her white count was 14,000 on presentation. Urinalysis was unremarkable. Patient underwent CT of the abdomen and pelvis which showed ascites, as well as some finding of mild thickening of the bowel which could be due to colitis or due to her ascites. HIDA scan was done and it was positive. Surgery evaluated the patient and felt that there is no evidence of cholecystitis. GI evaluated the patient. Patient also underwent workup for malignancy. 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 There was no evidence of SBP. Oncology saw the patient, and ordered pelvic ultrasound which did not show any mass, CT of the chest which did not show any masses well. Her CEA 125 has been elevated. Patient was placed on Cipro and Flagyl since admission. She had GI procedure, and post procedure has hypoxemia, transferred to ICU. Had kelly infiltrates, and she received and completed Abx for Rx of PNA. She was last seen August 24. Patient had undergone diagnostic laparoscopy, and had findings of peritoneal carcinomatosis. 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 Patient since has had problem mostly with controlling her abdominal pain. She is being seen by palliative medicine, and being evaluated by hospice. Yesterday she started having fevers, and blood culture done is now reported as growing enterococcus. Patient continues to be febrile. She was started on IV vancomycin, and apparently about 30 minutes into the infusion she spiked a fever, and developed a heart rate of around 160-180. HALICAT was called. Patient currently has a more controlled heart rate. She is not hypotensive. She currently denies any abdominal pain, and apparently has received some pain medication. No nausea or vomiting, no diarrhea. Not short of breath, denies any coughing. She has no central line. She has peripheral IVs. She is voiding okay. Her last chest x-ray from yesterday showing stable effusion and infiltrates. Antibiotics IV Vanco Lines PIV Past Medical History Reviewed Allergies: Coded Allergies: Penicillin (Verified Allergy, Unknown, 08/09/16) Objective . Vital Signs Date Time Temp Pulse Resp B/P Pulse Ox O2 Delivery O2 Flow Rate FiO2 09/01/16 17:26 18 09/01/16 16:00 97.2 90 16 128/64 95 09/01/16 14:42 101.1 108 22 129/71 96 09/01/16 12:55 Nasal Cannula 3.00 30 09/01/16 12:00 96.8 98 18 123/60 96 09/01/16 10:29 104 09/01/16 08:00 97.5 93 16 112/62 97 09/01/16 07:47 96 Nasal Cannula 3.00 09/01/16 06:00 96.2 90 17 110/72 97 09/01/16 00:00 98.0 98 17 111/66 97 08/31/16 23:00 98.9 08/31/16 22:30 170 08/31/16 21:08 Nasal Cannula 3.00 08/31/16 20:20 114 08/31/16 20:00 101.7 119 18 168/96 92 08/31/16 19:44 91 Nasal Cannula 3.00 08/31/16 08/31/16 09/01/16 15:00 23:00 07:00 Intake Total 600 ml 1000 ml Balance 600 ml 1000 ml Intake Oral 600 ml IV Total 1000 ml # Voids 2 4 4 # Bowel Movements 2 0 . Laboratory Tests Test 08/31/16 01:45 White Blood Count 14.7 TH/MM3 Red Blood Count 4.32 MIL/MM3 Hemoglobin 12.4 GM/DL Hematocrit 36.3 % Mean Corpuscular Volume 84.1 FL Mean Corpuscular Hemoglobin 28.7 PG Mean Corpuscular Hemoglobin 34.1 % Concent Red Cell Distribution Width 15.9 % Platelet Count 235 TH/MM3 Mean Platelet Volume 9.0 FL Neutrophils (%) (Auto) 88.4 % Lymphocytes (%) (Auto) 5.2 % Monocytes (%) (Auto) 5.9 % Eosinophils (%) (Auto) 0.0 % Basophils (%) (Auto) 0.5 % Neutrophils # (Auto) 13.0 TH/MM3 Lymphocytes # (Auto) 0.8 TH/MM3 Monocytes # (Auto) 0.9 TH/MM3 Eosinophils # (Auto) 0.0 TH/MM3 Basophils # (Auto) 0.1 TH/MM3 CBC Comment DIFF FINAL Differential Comment Laboratory Tests Test 08/31/16 01:45 Sodium Level 125 MEQ/L Potassium Level 3.4 MEQ/L Chloride Level 87 MEQ/L Carbon Dioxide Level 27.8 MEQ/L Anion Gap 10 MEQ/L Blood Urea Nitrogen 10 MG/DL Creatinine 0.44 MG/DL Estimat Glomerular Filtration 147 ML/MIN Rate Random Glucose 114 MG/DL Calcium Level 8.0 MG/DL Total Bilirubin 1.5 MG/DL Aspartate Amino Transf 177 U/L (AST/SGOT) Alanine Aminotransferase 93 U/L (ALT/SGPT) Alkaline Phosphatase 944 U/L Total Protein 7.0 GM/DL Albumin 2.4 GM/DL Microbiology Date/Time Procedure Status Source Growth 08/31/16 01:40 Aerobic Blood Culture - Preliminary Resulted Blood Peripheral Group D Enterococcus 08/31/16 01:40 Anaerobic Blood Culture - Final Resulted Blood Peripheral ONLY AEROBIC CULTURE ORDERED 08/31/16 01:45 Aerobic Blood Culture - Preliminary Resulted Blood Peripheral NO GROWTH IN 1 DAY 08/31/16 01:45 Anaerobic Blood Culture - Preliminary Resulted Blood Peripheral NO GROWTH IN 1 DAY Imaging Chest X-Ray 08/31/16 0000 Signed Impressions: Service Date/Time: Wednesday, August 31, 2016 06:41 - CONCLUSION: Unchanged bilateral pleural effusions and bibasilar infiltrates. Bert Nunes Jr., MD Cyst Biopsy Asp-Paracentesis US 08/16/16 0000 Signed Impressions: Service Date/Time: Tuesday, August 16, 2016 09:24 - CONCLUSION: Uncomplicated ultrasound guided paracentesis. Grady Wilson MD Pelvis Ultrasound 08/14/16 0000 Signed Impressions: Service Date/Time: Sunday, August 14, 2016 22:18 - CONCLUSION: 1. Moderate amount of ascites within the pelvis. 2. Lack of visualization of both ovaries. 3. No discrete mass observed. Bert Nunes Jr., MD Chest CT 08/14/16 0000 Signed Impressions: Service Date/Time: Monday, August 15, 2016 07:53 - CONCLUSION: Bilateral mild pleural effusions being greater on the right. Fadi Cordova MD Hepatobiliary Scan Nuclear Medicine 08/09/16 0000 Signed Impressions: Service Date/Time: Tuesday, August 09, 2016 20:50 - CONCLUSION: Nonvisualization of the gallbladder however the patient does have a stent in place. I reviewed the CT scan from the same day which failed to demonstrate any obvious gallbladder wall thickening. Delayed images of the gallbladder will be performed. Matt Tovar MD ADDENDUM: COMPARISON: BILIARY SCAN ([facility]), July 30, 2016, 13:41. A delayed image in anterior and right lateral projection was performed at 16 hours. There is no activity seen within the lumen of gallbladder. Since the patient has an indwelling biliary stent, absence of gallbladder visualization is nonpredictive with respect to cystic duct obstruction. Bert Brandon MD Abdomen/Pelvis CT 08/09/16 0000 Signed Impressions: Service Date/Time: Tuesday, August 09, 2016 17:46 - CONCLUSION: 1. Silastic biliary stent now present and appears appropriately positioned. Decreased intrahepatic biliary distention, now mild. No pancreatitis or other acute complication demonstrated. 2. Increased ascites, moderate. Also mild to moderate body wall edema/anasarca developing. 3. Mild enteritis/colitis possible versus reactive wall thickening from the ascites. In any event, no obstruction demonstrated. Fadi Yin MD Physical Exam GENERAL: awake and alert, not toxic appearing, not in any respiratory distress SKIN: Warm and dry. No generalized rash . No ecchymosis. No evidence of phlebitis in any of her previous IV sites. HEENT: [place] conjunctivae, no petechia or hemorrhage. Pupils equal and reactive to light. EOMs full and intact. No scleral icterus. No nasal drainage. No sinus tenderness. Moist oral mucosa. No oral thrush. NECK: Supple, nontender, no meningeal signs. Trachea in midline, no JVD. CARDIOVASCULAR: Regular rate and rhythm without gallops, or rubs. RESPIRATORY: Breath sounds equal bilaterally. Decreased breath sounds at the bases. No rales or wheezing or rhonchi. GASTROINTESTINAL: Abdomen mildly distended, bowel sounds are present and normoactive, with no significant tenderness on palpation. No guarding or rebound. There is an incision in the umbilical area which is dry with no redness and no drainage. MUSCULOSKELETAL: Extremities without clubbing, cyanosis, or edema. No calf tenderness. Feet are warm to touch. NEUROLOGICAL: Non-focal PSYCH: Normal affect, calm and cooperative LINE: PIV with no evidence of infection Assessment & Plan Remarks IMPRESSION Bacteremia with enterococcus, source concern likely is biliary source. Her LFTs are elevated again. 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
[2016-09-01] MEDS: metroNIDAZOLE 500 MG TAB PO SCH ×2 (18:41→20:50)
[2016-09-01] MEDS: LEVOFLOXACIN 750 MG TAB PO SCH (18:41)
[2016-09-01] MEDS: LINEZOLID 600 MG PREMIX 300 ML IV SCH (18:50)
--- NOTE | 2016-09-01 19:48 | EKG ---
Date Performed: 08/31/2016 Time Performed: 23:27:21 PTAGE: 56 years EKG: SINUS TACHYCARDIA ABNORMAL RHYTHM ECG PREVIOUS TRACING : 07/28/2016 20.26 Compared to the previous tracing rate faster DOCTOR: Jose Alfredo Ríos Interpretating Date/Time 09/01/2016 19:45:56
[2016-09-01] MEDS ORDERED: FUROSEMIDE 40 MG/4 ML VIAL IV PUSH ONE (20:00)
[2016-09-01] MEDS ORDERED: POTASSIUM CHLORIDE 20 MEQ CONTROLLED RELEASE TAB PO ONE (20:00)
[2016-09-02] VITALS (9 sets, daily range): BP systolic 91–113; BP diastolic 56–76; PULSE 91–121; RESP 17–20; TEMP 96.3–96.6; O2SAT 95–99
[2016-09-02] MEDS: SODIUM CHLOR 0.9% 1000 ML INJ 1,000 ML IV SCH ×2 (02:30→13:33)
[2016-09-02] MEDS: metroNIDAZOLE 500 MG TAB PO SCH ×3 (05:59→20:14)
[2016-09-02] MEDS: LINEZOLID 600 MG PREMIX 300 ML IV SCH ×2 (06:01→16:25)
[2016-09-02 06:44] LABS: INDIRECT BILIRUBIN 0.3 MG/DL (0.0-0.8); TOTAL BILIRUBIN ADULT 0.8 MG/DL (0.2-1.0)
[2016-09-02] MEDS: guaiFENesin E.R. 600 MG TAB PO SCH ×2 (08:35→20:14)
[2016-09-02] MEDS: FAMOTIDINE 20 MG TAB PO SCH ×2 (08:35→20:14)
[2016-09-02] MEDS: PANTOPRAZOLE SOD 40 MG DELAYED RELEASE TAB PO SCH (08:35)
[2016-09-02] MEDS: SPIRONOLACTONE 25 MG TAB PO SCH ×2 (08:35→16:25)
[2016-09-02] MEDS: LEVOFLOXACIN 750 MG TAB PO SCH (08:35)
[2016-09-02] MEDS: predniSONE 5 MG TAB PO SCH ×2 (08:35→20:14)
[2016-09-02] MEDS: FUROSEMIDE 20 MG TAB PO SCH ×2 (08:36→16:25)
[2016-09-02] MEDS: SODIUM CHLORIDE 0.9% FLUSH 10 ML FLUSH IV FLUSH SCH ×2 (08:36→20:13)
[2016-09-02] MEDS: amLODIPine BESYLATE 5 MG TAB PO SCH (08:40)
[2016-09-02] MEDS: METOPROLOL TARTRATE 25 MG TAB PO SCH ×2 (08:41→20:14)
--- NOTE | 2016-09-02 10:41 | RADRPT ---
EXAM DATE/TIME: 09/02/2016 09:32 [place] COMPARISON: No previous studies available for comparison. INDICATIONS : Abnormal labs. MEDICAL HISTORY : Dyspnea. Sputum production. Abdominal pain. SURGICAL HISTORY : Biliary stent placement. ENCOUNTER: Subsequent ACUITY: 1 day PAIN SCORE: 05/04 LOCATION: Right upper quadrant MEASUREMENTS: LIVER: 14.5 cm length COMMON DUCT: 3 mm RIGHT KIDNEY: 8.9 x 4.8 x 5.7 cm FINDINGS: No focal abnormalities in the liver. Portal venous flow direction is normal. There is a 2.7 cm gallst one in the gallbladder without biliary ductal dilatation. No significant gallbladder wall thickening. Incidental right pleural effusion. Right kidney unremarkable. CONCLUSION: 1. 2.7 cm gallstone in gallbladder without biliary ductal dilatation. Right pleural effusion. Jorge Cody MD on September 02, 2016 at 10:36 Board Certified Radiologist. This report was verified electronically.
[2016-09-02] MEDS: HYDROmorphone HCL PF 1 MG/ML VIAL IV PUSH PRN ×2 (11:23→20:31)
[2016-09-02] MEDS: RESP: BUDESONIDE 0.5 MG/2 ML NEB NEB SCH ×2 (11:34→21:29)
--- NOTE | 2016-09-02 12:49 | HHI.PR ---
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 Patient's brother is at the bedside. Patient stated that pain continues to be uncontrolled. Deny any nausea vomiting. Deny chest pain, palpitation, stress breathing, nausea vomiting. Objective Vitals Vital Signs Date Time Temp Pulse Resp B/P Pulse Ox O2 Delivery O2 Flow Rate FiO2 09/02/16 12:22 96.6 115 20 102/65 96 09/02/16 11:37 98 Nasal Cannula 3.00 09/02/16 08:55 96.3 106 20 101/69 98 09/02/16 08:43 Nasal Cannula 3.00 30 09/02/16 04:00 96.3 105 17 106/70 98 09/02/16 00:00 96.4 91 18 91/60 99 09/01/16 20:19 93 Nasal Cannula 3.00 09/01/16 20:00 124 09/01/16 20:00 Nasal Cannula 3.00 09/01/16 20:00 97.1 124 18 121/78 95 09/01/16 19:45 97.1 128 20 124/71 96 09/01/16 17:54 94 20 112/69 96 09/01/16 17:39 102 20 132/74 96 09/01/16 17:38 98.7 102 20 133/75 99 09/01/16 17:30 98.7 190 20 96 09/01/16 17:26 18 09/01/16 17:00 20 09/01/16 16:00 97.2 90 16 128/64 95 09/01/16 14:42 101.1 108 22 129/71 96 09/01/16 12:55 Nasal Cannula 3.00 30 I/O 09/01/16 09/01/16 09/01/16 09/02/16 09/02/16 09/02/16 06:59 14:59 22:59 06:59 14:59 22:59 Output Total 400 ml 500 ml 900 ml Balance -400 ml -500 ml -900 ml Output Urine Total 400 ml 500 ml 900 ml # Voids 4 3 1 # Bowel Movements 1 2 Result Diagram: 08/31/1614408/31/16144 Objective Remarks Gen in NAD Neck: Supple, airway patent. Lungs: good kelly air movement. Heart: Clear tones, NL S1S2, No JVD Abdomen: Soft, tender epigastric area, no peritoneal irritation, BS few. Extremities: Warm, flushed. Neuro: Awake alert oriented 3. Moves 4 limbs. Medications and IVs Current Medications Morphine Sulfate (Morphine Inj) 4 mg ONCE ONCE IV PUSH Last administered on 16:39; Start 08/09/16 at 16:15; Stop 08/09/16 at 16:16; Status DC Ondansetron HCl 4 mg 4 mg ONCE ONCE IVP Last administered on 08/09/16 16:38; Start 08/09/16 at 16:15; Stop 08/09/16 at 16:16; Status DC Sodium Chloride (NS 1000 ml Inj) 1,000 ml @ 1,000 mls/hr Q1H IV Last administered on 08/09/16 16:39; Start 08/09/16 at 16:03; Stop 08/09/16 at 17:02 ; Status DC Sodium Chloride (NS Flush) 2 ml UNSCH PRN IV FLUSH FLUSH AFTER USING IV ACCESS Last administered on 08/09/16 20:01; Start 08/09/16 at 16:15; Stop 08/10/16 at 11:08; Status DC Ketorolac Tromethamine (Toradol Inj) 30 mg ONCE ONCE IVP Last administered on 08/09/16 16:38; Start 08/09/16 at 16:15; Stop 08/09/16 at 16:16; Status DC Iohexol 85 ml 85 ml STK-MED ONCE IV Last administered on 08/09/16 17:50; Start 08/09/16 at 17:50; Stop 08/09/16 at 17:51; Status DC Vancomycin HCl 1000 mg/Sodium Chloride 250 ml @ 250 mls/hr ONCE STAT IV Last administered on 08/09/16 20:01; Start 08/09/16 at 18:42; Stop 08/09/16 at 19:41 ; Status DC Aztreonam 2000 mg/ Sodium Chloride 100 ml @ 200 mls/hr ONCE STAT IV Last administered on 08/09/16 20:51; Start 08/09/16 at 18:42; Stop 08/09/16 at 19:11 ; Status DC Metronidazole (Flagyl 500 Mg Inj) 100 ml @ 100 mls/hr ONCE STAT IV Last administered on 08/09/16 20:01; Start 08/09/16 at 18:42; Stop 08/09/16 at 19:41 ; Status DC Sodium Chloride (NS Flush) 2 ml UNSCH PRN IV FLUSH FLUSH AFTER USING IV ACCESS Last administered on 08/22/16 23:00; Start 08/09/16 at 20:45 Sodium Chloride (NS Flush) 2 ml BID IV FLUSH Last administered on 09/02/16 08: 36; Start 08/09/16 at 21:00 Naloxone HCl (Narcan Inj) 0.4 mg UNSCH PRN IV SEE LABEL COMMENTS; Start at 20:45 Hydromorphone HCl 0.2 mg 0.2 mg Q4H PRN IV PUSH PAIN SCALE 1 TO 5 Last administered on 08/31/16 00:09; Start 08/09/16 at 23:45 Ciprofloxacin/ Dextrose 200 ml @ 200 mls/hr Q12H IV Last administered on 04:38; Start 08/10/16 at 05:00; Stop 08/17/16 at 21:30; Status DC Metronidazole (Flagyl 500 Mg Inj) 100 ml @ 100 mls/hr Q6H IV Last administered on 08/20/16 11:20; Start 08/10/16 at 06:00; Stop 08/20/16 at 13:33 ; Status DC Pantoprazole Sodium (Protonix) 40 mg DAILY PO Last administered on 09/02/16 08 :35; Start 08/10/16 at 09:00 Morphine Sulfate 2 mg 2 mg Q3H PRN IV PUSH pain >5 Last administered on 18:39; Start 08/10/16 at 08:00; Stop 08/12/16 at 07:21; Status DC Sodium Chloride (NS 1000 ml Inj) 1,000 ml @ 75 mls/hr [id number] IV Last administered on 08/12/16 05:08; Start 08/10/16 at 11:17; Stop 08/12/16 at 13:58 ; Status DC Simethicone (Mylicon Chew) 80 mg ONCE ONCE CHEW Last administered on 15:23; Start 08/12/16 at 14:00; Stop 08/12/16 at 14:01; Status DC Simethicone (Mylicon Chew) 80 mg [facility] PRN CHEW BLOATING; Start 08/12/16 at 14: 00 Furosemide (Lasix) 20 mg BID@09,18 PO Last administered on 09/02/16 08:36; Start 08/13/16 at 15:45 Potassium Chloride (KCl) 20 meq ONCE ONCE PO Last administered on 08/13/16 16 :00; Start 08/13/16 at 15:45; Stop 08/13/16 at 15:46; Status DC Spironolactone (Aldactone) 25 mg BID@,18 PO Last administered on 09/02/16 08 :35; Start 08/14/16 at 09:00 Iohexol (Omnipaque 350 Inj) 50 ml STK-MED ONCE IV Last administered on 08:01; Start 08/15/16 at 08:01; Stop 08/15/16 at 08:02; Status DC Clonidine (Catapres) 0.1 mg ONCE ONCE PO Last administered on 08/16/16 04:13 ; Start 08/16/16 at 04:00; Stop 08/16/16 at 04:01; Status DC Propofol (Diprivan 200 Mg/20 ml Inj) 450 mg STK-MED ONCE IV ; Start 08/17/16 at 14:14; Stop 08/17/16 at 15:01; Status DC Fentanyl Citrate (fentaNYL INJ) 100 mcg STK-MED ONCE .ROUTE ; Start 08/17/16 at 15:02; Stop 08/17/16 at 15:03; Status DC Miscellaneous Information ALL NURSING DEPARTME... UNSCH PRN .XX SEE LABEL COMMENTS; Start 08/17/16 at 14:58; Stop 08/18/16 at 14:57; Status DC Albuterol/ Ipratropium (Duoneb Neb) 1 ampule Q4HR NEB NEB Last administered on 08/21/16 15:06; Start 08/17/16 at 18:00; Stop 08/21/16 at 18:00; Status DC Methylprednisolone Sodium Succinate (SoluMEDROL INJ) 125 mg ONCE ONCE IV PUSH Last administered on 08/17/16 18:20; Start 08/17/16 at 18:30; Stop 08/17/16 at 18:31; Status DC Methylprednisolone Sodium Succinate (SoluMEDROL INJ) 60 mg Q6HR IV PUSH Last administered on 08/20/16 11:23; Start 08/18/16 at 00:00; Stop 08/20/16 at 14:02 ; Status DC Albuterol Sulfate (Albuterol Neb) 2.5 mg Q4HR NEB PRN INH SHORTNESS OF BREATH; Start 08/17/16 at 18:15; Stop 08/21/16 at 18:15; Status DC Metoprolol Tartrate (Lopressor) 25 mg Q12HR PO Last administered on 08/23/16 10 :02; Start 08/17/16 at 21:00; Stop 08/23/16 at 17:42; Status DC Metoprolol Tartrate (Lopressor Inj) 5 mg Q6H PRN IV PUSH P > 130; Start at 18:45; Stop 08/19/16 at 21:23; Status DC Acetaminophen 1000 mg 1,000 mg ONCE ONCE IV Last administered on 08/17/16 19: 03; Start 08/17/16 at 19:00; Stop 08/17/16 at 19:01; Status DC Cefepime HCl/ Sodium Chloride (Maxipime Inj/NS Inj) 100 ml @ 200 mls/hr Q12H IV Last administered on 08/23/16 10:02; Start 08/17/16 at 22:00; Stop 08/23/16 at 12:16; Status DC Diphenhydramine HCl (Benadryl Inj) 25 mg Q6H PRN IV PUSH hives, itching; Start 08/17/16 at 22:00 Miscellaneous Information Patient in critical care unit? Ass... [id number] .XX ; Start 08/18/16 at 02:30 Chlorhexidine Gluconate (Chlorhexidine 2% Cloth) 3 pack DAILY@04 TOPICAL Last administered on 08/22/16 04:00; Start 08/18/16 at 04:00; Stop 08/22/16 at 04:01 ; Status DC Chlorhexidine Gluconate (Chlorhexidine 2% Cloth) 3 pack UNSCH PRN TOPICAL HYGIENIC CARE; Start 08/18/16 at 02:30; Stop 08/23/16 at 02:15; Status DC Potassium Bicarb/ Potassium Chloride 25 meq 25 meq ONCE ONCE PO Last administered on 08/19/16 10:00; Start 08/19/16 at 09:00; Stop 08/19/16 at 09:01 ; Status DC Vancomycin HCl 1000 mg/Sodium Chloride 250 ml @ 250 mls/hr ONCE ONCE IV ; Start 08/19/16 at 14:15; Stop 08/19/16 at 15:14; Status UNV Pharmacy Profile Note 0 ml @ 0 mls/hr UNSCH OTHER ; Start 08/19/16 at 14:15; Stop 08/20/16 at 13:31; Status DC Vancomycin HCl/ Sodium Chloride (Vancomycin Inj/ NS 500 ml Inj) 512.5 ml @ 250 mls/hr Q12H IV Last administered on 08/20/16 06:53; Start 08/19/16 at 16:00; Stop 08/20/16 at 11:34; Status DC Miscellaneous Information SPECIFIC LAB TO BE DRAWN:VANCOMYCIN DATE TO BE DR... ONCE ONCE .XX ; Start 08/21/16 at 03:45; Stop 08/21/16 at 03:46; Status Cancel Diphenhydramine HCl 25 mg 25 mg ONCE ONCE PO Last administered on 08/19/16 23 :33; Start 08/19/16 at 23:15; Stop 08/19/16 at 23:16; Status DC Vancomycin HCl/ Sodium Chloride (Vancomycin Inj/ NS 250 ml Inj) 262.5 ml @ 250 mls/hr Q12H IV ; Start 08/20/16 at 16:00; Stop 08/20/16 at 16:00; Status DC Metronidazole (Flagyl) 500 mg Q8HR PO Last administered on 08/25/16 05:40; Start 08/20/16 at 14:00; Stop 08/25/16 at 10:31; Status DC Prednisone (Deltasone) 20 mg BID PO Last administered on 08/24/16 08:27; Start 08/20/16 at 21:00; Stop 08/24/16 at 15:05; Status DC Enalaprilat (Vasotec Inj) 1.25 mg Q6H PRN IV PUSH SBP>180 or DBP>100; Start at 14:00 Amlodipine Besylate (Norvasc) 5 mg DAILY PO Last administered on 09/01/16 10: 06; Start 08/21/16 at 15:00 Temazepam (Restoril) 7.5 mg ONCE ONCE PO Last administered on 08/21/16 21:58 ; Start 08/21/16 at 20:00; Stop 08/21/16 at 20:01; Status DC Potassium Chloride (KCl) 40 meq ONCE ONCE PO Last administered on 08/22/16 17 :30; Start 08/22/16 at 16:45; Stop 08/22/16 at 16:46; Status DC Levofloxacin (Levaquin) 750 mg DAILY PO Last administered on 08/25/16 08:36; Start 08/23/16 at 13:00; Stop 08/25/16 at 10:31; Status DC Albuterol/ Ipratropium (Duoneb Neb) 1 ampule QID NEB PRN NEB wheezing Last administered on 08/23/16 17:47; Start 08/23/16 at 15:00; Stop 08/27/16 at 16:46; Status DC Metoprolol Tartrate (Lopressor) 12.5 mg Q12HR PO Last administered on 08/30/16 20:17; Start 08/23/16 at 21:00; Stop 08/30/16 at 22:54; Status DC Metoprolol Tartrate (Lopressor) 12.5 mg ONCE ONCE PO Last administered on 18:59; Start 08/23/16 at 17:30; Stop 08/23/16 at 17:41; Status DC Miscellaneous (Pill Splitter) 1 ea UNSCH PRN OTHER SEE LABEL COMMENTS; Start at 17:45 Prednisone 10 mg 10 mg BID PO Last administered on 08/30/16 08:44; Start at 21:00; Stop 08/30/16 at 13:13; Status DC Lactated Ringer's 1,000 ml @ 30 mls/hr Q24H PRN IV SEE LABEL COMMENTS; Start at 03:30; Stop 08/28/16 at 03:29; Status DC Sodium Chloride (NS 500 ml Inj) 500 ml @ 30 mls/hr [id number] PRN IV SEE LABEL COMMENTS; Start 08/25/16 at 03:30; Stop 08/28/16 at 03:29; Status DC Metoprolol Tartrate (Lopressor) 25 mg [employer]Y PL[employer]NER PRN PO SEE LABEL COMMENTS; Start 08/25/16 at 03:30; Stop 08/28/16 at 03:29; Status DC Povidone Iodine (Betadine 5% Antisepsis Kit) 1 applic [employer]Y PLANNER PRN EACH NARE SEE LABEL COMMENTS; Start 08/25/16 at 03:30; Stop 08/28/16 at 03:29; Status DC Chlorhexidine Gluconate 3 pack 3 pack PARTY PL[employer]NER PRN TOPICAL SEE LABEL COMMENTS; Start 08/25/16 at 03:30; Stop 08/28/16 at 03:29; Status DC Levofloxacin/ Dextrose 150 ml @ 100 mls/hr Q24H IV Last administered on 09:23; Start 08/26/16 at 09:00; Stop 08/27/16 at 12:00; Status DC Metronidazole (Flagyl 500 Mg Inj) 100 ml @ 100 mls/hr Q8H IV Last administered on 08/27/16 22:11; Start 08/25/16 at 14:00; Stop 08/27/16 at 23:55; Status DC Bupivacaine HCl (Marcaine Pf 0.5% Inj) 30 ml STK-MED ONCE .ROUTE ; Start at 14:52; Stop 08/25/16 at 14:53; Status DC Sugammadex Sodium (Bridion Inj) 200 mg STK-MED ONCE IV PUSH ; Start 08/25/16 at 15:51; Stop 08/25/16 at 15:52; Status DC Bupivacaine HCl/ Epinephrine Bitart (Sensorcaine-Epinephrine Pf 0.25% Inj) 10 ml STK-MED ONCE INFIL Last administered on 08/25/16 15:45; Start 08/25/16 at 15: 45; Stop 08/25/16 at 16:12; Status DC Morphine Sulfate (*morphine INJ PERIprocedure ONLY) 8 mg STK-MED ONCE .ROUTE Last administered on 08/25/16 16:50; Start 08/25/16 at 16:50; Stop 08/25/16 at 16: 51; Status DC Ipratropium [place] (Atrovent Neb) 0.5 mg Q4HR NEB NEB Last administered on 15:28; Start 08/26/16 at 17:00; Stop 08/27/16 at 16:47; Status DC Budesonide (Pulmicort Respule Neb) 0.5 mg Q12HR NEB NEB Last administered on 11:34; Start 08/26/16 at 20:00 Guaifenesin (Mucinex Er) 600 mg BID PO Last administered on 09/02/16 08:35; Start 08/26/16 at 21:00 Albuterol/ Ipratropium 1 ampule 1 ampule Q4HR NEB NEB Last administered on 08/31 19:44; Start 08/27/16 at 20:00; Stop 08/31/16 at 20:00; Status DC Sodium Chloride 1,000 ml @ 999 mls/hr BOLUS ONCE IV Last administered on 13:46; Start 08/28/16 at 12:30; Stop 08/28/16 at 13:30; Status DC Sodium Chloride (NS 1000 ml Inj) 1,000 ml @ 100 mls/hr Q10H IV Last administered on 09/01/16 18:49; Start 08/28/16 at 12:30 Enoxaparin Sodium (Lovenox Inj) 40 mg Q24H SQ Last administered on 09/01/16 15 :33; Start 08/28/16 at 17:00 Hydromorphone HCl (Dilaudid Pf Inj) 0.5 mg Q4H PRN IV PUSH PAIN SCALE 6 TO 10 Last administered on 09/02/16 11:23; Start 08/29/16 at 12:15 Prednisone (Deltasone) 5 mg BID PO Last administered on 09/02/16 08:35; Start 08/30/16 at 21:00 Famotidine (Pepcid) 20 mg BID PO Last administered on 09/02/16 08:35; Start at 13:15 Acetaminophen (Tylenol) 650 mg ONCE ONCE PO Last administered on 08/30/16 23: 01; Start 08/30/16 at 23:00; Stop 08/30/16 at 23:01; Status DC Metoprolol Tartrate (Lopressor) 25 mg Q12HR PO Last administered on 09/01/16 20:50; Start 08/31/16 at 09:00 Ibuprofen 400 mg 400 mg ONCE PO Last administered on 08/31/16 00:42; Start 08/31 at 00:30; Stop 08/31/16 at 03:00; Status DC Metronidazole 100 ml @ 100 mls/hr ONCE ONCE IV Last administered on 08/31/16 21:07; Start 08/31/16 at 21:00; Stop 08/31/16 at 21:59; Status DC Cefepime HCl/ Sodium Chloride (Maxipime Inj/NS Inj) 100 ml @ 200 mls/hr ONCE ONCE IV Last administered on 08/31/16 22:18; Start 08/31/16 at 21:00; Stop at 21:29; Status DC Ibuprofen (Motrin) 400 mg Q6H PRN PO fever >101 Last administered on 09/01/16 15:28; Start 08/31/16 at 21:00 Ondansetron HCl 4 mg 4 mg Q6HR PRN IV PUSH nausea Last administered on 21:07; Start 08/31/16 at 21:00 Vancomycin HCl 1000 mg/Sodium Chloride 250 ml @ 250 mls/hr ONCE ONCE IV ; Start 09/01/16 at 11:00; Stop 09/01/16 at 11:59; Status UNV Pharmacy Profile Note 0 ml @ 0 mls/hr UNSCH OTHER ; Start 09/01/16 at 11:00; Stop 09/01/16 at 19:58; Status DC Vancomycin HCl/ Sodium Chloride (Vancomycin Inj/ NS 250 ml Inj) 262.5 ml @ 250 mls/hr Q12H IV Last administered on 09/01/16 13:27; Start 09/01/16 at 13:00; Stop 09/01/16 at 19:58; Status DC Miscellaneous Information SPECIFIC LAB TO BE DRAWN:VANCOMYCIN TROUGH DATE TO... ONCE ONCE .XX ; Start 09/03/16 at 00:45; Stop 09/03/16 at 00:46 Linezolid (Zyvox 600 Mg Premix) 300 ml @ 300 mls/hr Q12H IV Last administered on 09/02/16 06:01; Start 09/01/16 at 18:00 Metronidazole (Flagyl) 500 mg Q8HR PO Last administered on 09/02/16 05:59; Start 5/10/17 at 18:00 Levofloxacin (Levaquin) 750 mg DAILY PO Last administered on 09/02/16 08:35; Start 09/01/16 at 18:00 Furosemide (Lasix Inj) 40 mg ONCE ONCE IV PUSH Last administered on 09/01/16 20:49; Start 09/01/16 at 20:00; Stop 09/01/16 at 20:01; Status DC Potassium Chloride (KCl) 40 meq ONCE ONCE PO Last administered on 09/01/16 20 :50; Start 09/01/16 at 20:00; Stop 09/01/16 at 20:01; Status DC A/P Problem List: (1) Abdominal pain ICD Code: R10.9 Status: Acute Assessment and Plan 56-year-old female with history of CBD stricture s/p ERCP with stent placement 1 week ago from admission presents with abdominal pain, nausea/ vomiting 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 -Imaging reviewed: CT abd showed silastic biliary stent now present and appears appropriately positioned; Decreased intrahepatic biliary distention, now mild; Increased ascites, moderate; mild to moderate body wall edema/anasarca developing; Mild enteritis/colitis possible versus reactive wall thickening from the ascites. HIDA 08/10 shows nonvisualization of the gallbladder. -Consulted gastroenterology, per Dr. Whitehead signed off. -Surgical oncology, Dr. Wylie, consulted. Not a good surgical candidate for cholecystectomy at this time. Symptoms not c/w cholecystitis at this time. -s/p U/S guided abdominal paracentesis 08/11 removed 5L green cloudy fluid, WBC 1320, RBC 897. -tumor markers remarkable for CA-125 elevated at 338, culture negative. -Diuresis with Lasix and Aldactone for ascites -Palliative care oncology following. -Patient had repeat paracentesis done on 08/16/2016. -Patient had ERCP/EUS done today on 08/17/2016. -repeat cytology positive for non-small cell neoplasm. GI signed off. -supportive treatment with pain control and antiemetics prn. Simethicone prn. -s/p Diagnostic and staging laparoscopies and Peritoneal biopsy 08/26/2016 showing adenocarcinoma. -Dr. tSern explained diagnosis, prognosis and management. Patient opted for hospice. -Patient wants inpatient hospice. d/w case management/ Group D enterococcus bacteremia -One out of 4 blood cultures positive showing group D enterococcus. -Vancomycin stopped yesterday and started on Zyvox. Patient also on Levaquin. Most likely infectious source is the common bile duct. -Infectious disease is following. repeat blood culture so far negative. Respiratory failure with hypoxia -Occurred after ERCP/EUS -Patient is being tapered off prednisone. Acute Colitis: seen on CT abdomen as above RESOLVED -On IV Cipro/Flagyl for gastroenterology which was d/leny -diet as tolerated per gastroenterology -Recommending eating small portions to avoid simulating pain. -GI signed off. Recent High Grade CBD Stricture: -s/p ERCP with stent placement 07/31. Pathology revealed rare atypical cells present in the background of numerous glandular epithelial cells, malignancy cannot be excluded. LFTs have been trending down since stent placement. CT abd showed biliary stent appropriately positioned, decreased biliary distention, no pancreatitis. -Gastroenterology on board -Continue to monitor LFTs, stable, follow-up CMP. Sepsis: -May be secondary to aspiration pneumonia. Chest x-ray shows bilateral pleural effusion more in the left side in the right and left-sided infiltrate. -Managed by infectious disease. completed antibiotics course on 08/27/16. -Clinically improving. Left-sided pneumonia. -See treatment as above. Hyponatremia: likely secondary to dehydration -Na 129 upon arrival -s/p IVF Hypokalemia -replenished on as needed DVT prophylaxiswith Lovenox Discharge Planning Poor prognosis and can only offer palliative treatment. patient wish to go to a hospice care facility. At the moment patient does not have any acceptance to inpatient facility. Problem Qualifiers (1) Abdominal pain: Qualified Code: R10.11 - Right upper quadrant abdominal pain Maddie Jewell MD September 02, 2016 12:49
[2016-09-02] MEDS ORDERED: POTASSIUM CHLORIDE 10 MEQ CONTROLLED RELEASE TAB PO ONE (13:00)
[2016-09-02] MEDS: fentaNYL 25 MCG/HR PATCH T-DERMAL SCH (13:32)
--- NOTE | 2016-09-02 13:47 | HHI.IDPN ---
Subjective Subjective Remarks She is a 56-year-old female, presented to the hospital complaining of increasing abdominal pain for about 2 days. 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 She underwent ERCP, and stent placement. She was discharged to home. She came back with increased abdominal pain. She also noted increasing abdominal girth. She has not been able to eat because of early satiety. There was one episode of vomiting. And she has had some back pain. She denies any urinary complaints, or any significant diarrhea. There is been no mention of any fever or chills or sweats. Patient had some elevated LFTs. Her white count was 14,000 on presentation. Urinalysis was unremarkable. Patient underwent CT of the abdomen and pelvis which showed ascites, as well as some finding of mild thickening of the bowel which could be due to colitis or due to her ascites. HIDA scan was done and it was positive. Surgery evaluated the patient and felt that there is no evidence of cholecystitis. GI evaluated the patient. Patient also underwent workup for malignancy. 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 There was no evidence of SBP. Oncology saw the patient, and ordered pelvic ultrasound which did not show any mass, CT of the chest which did not show any masses well. Her CEA 125 has been elevated. Patient was placed on Cipro and Flagyl since admission. She had GI procedure, and post procedure has hypoxemia, transferred to ICU. Had kelly infiltrates, and she received and completed Abx for Rx of PNA. She was last seen August 24. Patient had undergone diagnostic laparoscopy, and had findings of peritoneal carcinomatosis. 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 Notes reviewed C/O abdominal pain Temps better No new (+) BC LFT better US CBD not dilated No nausea or vomiting, no diarrhea. Not short of breath, denies any coughing. She has no central line. She has peripheral IVs. She is voiding okay. Her last CXR showing stable effusion and infiltrates. Antibiotics IV Zyvox Levaquin Flagyl Lines PIV Past Medical History Reviewed Allergies: Coded Allergies: Penicillin (Verified Allergy, Unknown, 08/09/16) Objective . Vital Signs Date Time Temp Pulse Resp B/P Pulse Ox O2 Delivery O2 Flow Rate FiO2 09/02/16 12:22 96.6 115 20 102/65 96 09/02/16 11:37 98 Nasal Cannula 3.00 09/02/16 08:55 96.3 106 20 101/69 98 09/02/16 08:43 Nasal Cannula 3.00 30 09/02/16 04:00 96.3 105 17 106/70 98 09/02/16 00:00 96.4 91 18 91/60 99 09/01/16 20:19 93 Nasal Cannula 3.00 09/01/16 20:00 124 09/01/16 20:00 Nasal Cannula 3.00 09/01/16 20:00 97.1 124 18 121/78 95 09/01/16 19:45 97.1 128 20 124/71 96 09/01/16 17:54 94 20 112/69 96 09/01/16 17:39 102 20 132/74 96 09/01/16 17:38 98.7 102 20 133/75 99 09/01/16 17:30 98.7 190 20 96 09/01/16 17:26 18 09/01/16 17:00 20 09/01/16 16:00 97.2 90 16 128/64 95 09/01/16 14:42 101.1 108 22 129/71 96 09/01/16 09/01/16 09/02/16 15:00 23:00 07:00 Output Total 400 ml 500 ml 900 ml Balance -400 ml -500 ml -900 ml Output Urine Total 400 ml 500 ml 900 ml # Voids 3 1 # Bowel Movements 1 2 . Laboratory Tests Test 09/02/16 05:41 Total Bilirubin 0.8 MG/DL Direct Bilirubin 0.5 MG/DL Indirect Bilirubin 0.3 MG/DL Aspartate Amino Transf 73 U/L (AST/SGOT) Alanine Aminotransferase 62 U/L (ALT/SGPT) Alkaline Phosphatase 721 U/L Total Protein 7.1 GM/DL Albumin 2.1 GM/DL Microbiology Date/Time Procedure Status Source Growth 08/31/16 01:40 Aerobic Blood Culture - Preliminary Resulted Blood Peripheral Group D Enterococcus 08/31/16 01:40 Anaerobic Blood Culture - Final Resulted Blood Peripheral ONLY AEROBIC CULTURE ORDERED 08/31/16 01:45 Aerobic Blood Culture - Preliminary Resulted Blood Peripheral NO GROWTH IN 2 DAYS 08/31/16 01:45 Anaerobic Blood Culture - Preliminary Resulted Blood Peripheral NO GROWTH IN 2 DAYS 09/01/16 18:20 Aerobic Blood Culture - Preliminary Resulted Blood Peripheral NO GROWTH IN 1 DAY 09/01/16 18:20 Anaerobic Blood Culture - Preliminary Resulted Blood Peripheral NO GROWTH IN 1 DAY 09/01/16 18:25 Aerobic Blood Culture - Preliminary Resulted Blood Peripheral NO GROWTH IN 1 DAY 09/01/16 18:25 Anaerobic Blood Culture - Preliminary Resulted Blood Peripheral NO GROWTH IN 1 DAY Imaging Chest X-Ray 08/31/16 0000 Signed Impressions: Service Date/Time: Wednesday, August 31, 2016 06:41 - CONCLUSION: Unchanged bilateral pleural effusions and bibasilar infiltrates. Bert Nunes Jr., MD Cyst Biopsy Asp-Paracentesis US 08/16/16 0000 Signed Impressions: Service Date/Time: Tuesday, August 16, 2016 09:24 - CONCLUSION: Uncomplicated ultrasound guided paracentesis. Grady Wilson MD Pelvis Ultrasound 08/14/16 0000 Signed Impressions: Service Date/Time: Sunday, August 14, 2016 22:18 - CONCLUSION: 1. Moderate amount of ascites within the pelvis. 2. Lack of visualization of both ovaries. 3. No discrete mass observed. Bert Nunes Jr., MD Chest CT 08/14/16 0000 Signed Impressions: Service Date/Time: Monday, August 15, 2016 07:53 - CONCLUSION: Bilateral mild pleural effusions being greater on the right. Fadi Cordova MD Hepatobiliary Scan Nuclear Medicine 08/09/16 0000 Signed Impressions: Service Date/Time: Tuesday, August 09, 2016 20:50 - CONCLUSION: Nonvisualization of the gallbladder however the patient does have a stent in place. I reviewed the CT scan from the same day which failed to demonstrate any obvious gallbladder wall thickening. Delayed images of the gallbladder will be performed. Matt Tovar MD ADDENDUM: COMPARISON: BILIARY SCAN (HIDA), July 30, 2016, 13:41. A delayed image in anterior and right lateral projection was performed at 16 hours. There is no activity seen within the lumen of gallbladder. Since the patient has an indwelling biliary stent, absence of gallbladder visualization is nonpredictive with respect to cystic duct obstruction. Bert Brandon MD Abdomen/Pelvis CT 08/09/16 0000 Signed Impressions: Service Date/Time: Tuesday, August 09, 2016 17:46 - CONCLUSION: 1. Silastic biliary stent now present and appears appropriately positioned. Decreased intrahepatic biliary distention, now mild. No pancreatitis or other acute complication demonstrated. 2. Increased ascites, moderate. Also mild to moderate body wall edema/anasarca developing. 3. Mild enteritis/colitis possible versus reactive wall thickening from the ascites. In any event, no obstruction demonstrated. Fadi Yin MD Physical Exam GENERAL: awake and alert, not toxic appearing, not in any respiratory distress SKIN: Warm and dry. No generalized rash . HEENT: [place] conjunctivae, no petechia or hemorrhage. No scleral icterus. Moist oral mucosa. No oral thrush. NECK: Supple, nontender, no meningeal signs. Trachea in midline, no JVD. CARDIOVASCULAR: Regular rate and rhythm without gallops, or rubs. RESPIRATORY: Breath sounds equal bilaterally. Decreased breath sounds at the bases. No rales or wheezing or rhonchi. GASTROINTESTINAL: Abdomen mildly distended, bowel sounds are present and normoactive, with tenderness R side. No guarding or rebound. There is an incision in the umbilical area which is dry with no redness and no drainage. MUSCULOSKELETAL: Extremities without clubbing, cyanosis, or edema. No calf tenderness. Feet are warm to touch. NEUROLOGICAL: Non-focal PSYCH: Normal affect, calm and cooperative LINE: PIV with no evidence of infection Assessment & Plan Remarks IMPRESSION Bacteremia with enterococcus, source concern likely is biliary source. Her LFTs are elevated again. 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
[2016-09-02] MEDS: ENOXAPARIN SODIUM 40 MG/0.4 ML SYRINGE SQ SCH (16:25)
[2016-09-03] VITALS (14 sets, daily range): BP systolic 92–122; BP diastolic 55–81; PULSE 97–150; RESP 17–20; TEMP 96.2–97.9; O2SAT 96–98
[2016-09-03] MEDS: ONDANSETRON HCL 4 MG/2 ML VIAL IV PUSH PRN ×2 (00:14→05:24)
[2016-09-03] MEDS: HYDROmorphone HCL PF 1 MG/ML VIAL IV PUSH PRN (00:15)
[2016-09-03] MEDS ORDERED: PHARMACY ORDERED LAB ONE (00:45)
[2016-09-03] MEDS: metroNIDAZOLE 500 MG TAB PO SCH ×3 (05:23→22:09)
[2016-09-03] MEDS: LINEZOLID 600 MG PREMIX 300 ML IV SCH (05:24)
[2016-09-03] MEDS: guaiFENesin E.R. 600 MG TAB PO SCH ×2 (08:31→22:09)
[2016-09-03] MEDS: METOPROLOL TARTRATE 25 MG TAB PO SCH ×2 (08:32→22:08)
[2016-09-03] MEDS: PANTOPRAZOLE SOD 40 MG DELAYED RELEASE TAB PO SCH (08:32)
[2016-09-03] MEDS: predniSONE 5 MG TAB PO SCH ×2 (08:32→22:09)
[2016-09-03] MEDS: FAMOTIDINE 20 MG TAB PO SCH ×2 (08:32→22:09)
[2016-09-03] MEDS: LEVOFLOXACIN 750 MG TAB PO SCH (08:32)
[2016-09-03] MEDS: SPIRONOLACTONE 25 MG TAB PO SCH ×2 (08:32→17:55)
[2016-09-03] MEDS: FUROSEMIDE 20 MG TAB PO SCH ×2 (08:32→17:56)
[2016-09-03] MEDS: SODIUM CHLORIDE 0.9% FLUSH 10 ML FLUSH IV FLUSH SCH ×2 (08:36→22:08)
[2016-09-03] MEDS: RESP: BUDESONIDE 0.5 MG/2 ML NEB NEB SCH ×2 (08:45→22:41)
[2016-09-03] MEDS: ENOXAPARIN SODIUM 40 MG/0.4 ML SYRINGE SQ SCH (14:36)
--- NOTE | 2016-09-03 15:12 | HHI.IDPN ---
Subjective Subjective Remarks She is a 56-year-old female, presented to the hospital complaining of increasing abdominal pain for about 2 days. 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 She underwent ERCP, and stent placement. She was discharged to home. She came back with increased abdominal pain. She also noted increasing abdominal girth. She has not been able to eat because of early satiety. There was one episode of vomiting. And she has had some back pain. She denies any urinary complaints, or any significant diarrhea. There is been no mention of any fever or chills or sweats. Patient had some elevated LFTs. Her white count was 14,000 on presentation. Urinalysis was unremarkable. Patient underwent CT of the abdomen and pelvis which showed ascites, as well as some finding of mild thickening of the bowel which could be due to colitis or due to her ascites. HIDA scan was done and it was positive. Surgery evaluated the patient and felt that there is no evidence of cholecystitis. GI evaluated the patient. Patient also underwent workup for malignancy. 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 There was no evidence of SBP. Oncology saw the patient, and ordered pelvic ultrasound which did not show any mass, CT of the chest which did not show any masses well. Her CEA 125 has been elevated. Patient was placed on Cipro and Flagyl since admission. She had GI procedure, and post procedure has hypoxemia, transferred to ICU. Had kelly infiltrates, and she received and completed Abx for Rx of PNA. She was last seen August 24. Patient had undergone diagnostic laparoscopy, and had findings of peritoneal carcinomatosis. 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 Notes reviewed D/W Dr Salazar No further fever Abdominal pain when she eats GI to exchange her stent Tuesday BC with sensitive Enterococcus No other (+) BC Antibiotics IV Zyvox Levaquin Flagyl Lines PIV Past Medical History Reviewed Allergies: Coded Allergies: Penicillin (Verified Allergy, Unknown, 08/09/16) Objective . Vital Signs Date Time Temp Pulse Resp B/P Pulse Ox O2 Delivery O2 Flow Rate FiO2 09/03/16 13:48 100 20 96/64 96 09/03/16 12:00 96.4 100 20 97/66 98 09/03/16 09:30 98 Nasal Cannula 3.00 09/03/16 08:48 Nasal Cannula 3.00 09/03/16 08:47 103 09/03/16 08:41 97.6 100 20 122/77 96 09/03/16 04:00 97.6 100 17 113/73 97 09/03/16 00:00 96.2 107 17 100/64 97 09/02/16 23:45 20 09/02/16 21:27 95 Nasal Cannula 3.00 09/02/16 20:00 108 09/02/16 20:00 96.5 121 17 97/56 98 09/02/16 20:00 98 Nasal Cannula 3.00 32 09/02/16 16:19 96.6 112 18 113/76 97 09/02/16 09/02/16 09/03/16 15:00 23:00 07:00 Intake Total 300 ml Balance 300 ml IV Total 300 ml # Voids 2 1 2 # Bowel Movements 1 1 . Laboratory Tests Test 09/02/16 05:41 Total Bilirubin 0.8 MG/DL Direct Bilirubin 0.5 MG/DL Indirect Bilirubin 0.3 MG/DL Aspartate Amino Transf 73 U/L (AST/SGOT) Alanine Aminotransferase 62 U/L (ALT/SGPT) Alkaline Phosphatase 721 U/L Total Protein 7.1 GM/DL Albumin 2.1 GM/DL Microbiology Date/Time Procedure Status Source Growth 09/01/16 18:20 Aerobic Blood Culture - Preliminary Resulted Blood Peripheral NO GROWTH IN 2 DAYS 09/01/16 18:20 Anaerobic Blood Culture - Preliminary Resulted Blood Peripheral NO GROWTH IN 2 DAYS 09/01/16 18:25 Aerobic Blood Culture - Preliminary Resulted Blood Peripheral NO GROWTH IN 2 DAYS 09/01/16 18:25 Anaerobic Blood Culture - Preliminary Resulted Blood Peripheral NO GROWTH IN 2 DAYS Imaging Chest X-Ray 08/31/16 0000 Signed Impressions: Service Date/Time: Wednesday, August 31, 2016 06:41 - CONCLUSION: Unchanged bilateral pleural effusions and bibasilar infiltrates. Bert Nunes Jr., MD Cyst Biopsy Asp-Paracentesis US 08/16/16 0000 Signed Impressions: Service Date/Time: Tuesday, August 16, 2016 09:24 - CONCLUSION: Uncomplicated ultrasound guided paracentesis. Grady Wilson MD Pelvis Ultrasound 08/14/16 0000 Signed Impressions: Service Date/Time: Sunday, August 14, 2016 22:18 - CONCLUSION: 1. Moderate amount of ascites within the pelvis. 2. Lack of visualization of both ovaries. 3. No discrete mass observed. Bert Nunes Jr., MD Chest CT 08/14/16 0000 Signed Impressions: Service Date/Time: Monday, August 15, 2016 07:53 - CONCLUSION: Bilateral mild pleural effusions being greater on the right. Fadi Cordova MD Hepatobiliary Scan Nuclear Medicine 08/09/16 0000 Signed Impressions: Service Date/Time: Tuesday, August 09, 2016 20:50 - CONCLUSION: Nonvisualization of the gallbladder however the patient does have a stent in place. I reviewed the CT scan from the same day which failed to demonstrate any obvious gallbladder wall thickening. Delayed images of the gallbladder will be performed. Matt Tovar MD ADDENDUM: COMPARISON: BILIARY SCAN (HIDA), July 30, 2016, 13:41. A delayed image in anterior and right lateral projection was performed at 16 hours. There is no activity seen within the lumen of gallbladder. Since the patient has an indwelling biliary stent, absence of gallbladder visualization is nonpredictive with respect to cystic duct obstruction. Bert Brandon MD Abdomen/Pelvis CT 08/09/16 0000 Signed Impressions: Service Date/Time: Tuesday, August 09, 2016 17:46 - CONCLUSION: 1. Silastic biliary stent now present and appears appropriately positioned. Decreased intrahepatic biliary distention, now mild. No pancreatitis or other acute complication demonstrated. 2. Increased ascites, moderate. Also mild to moderate body wall edema/anasarca developing. 3. Mild enteritis/colitis possible versus reactive wall thickening from the ascites. In any event, no obstruction demonstrated. Fadi Yin MD Physical Exam GENERAL: awake and alert, not toxic appearing, not in any respiratory distress SKIN: Warm and dry. No generalized rash . HEENT: [place] conjunctivae, no petechia or hemorrhage. No scleral icterus. Moist oral mucosa. No oral thrush. NECK: Supple, nontender, no meningeal signs. Trachea in midline, no JVD. CARDIOVASCULAR: Regular rate and rhythm without gallops, or rubs. RESPIRATORY: Breath sounds equal bilaterally. Decreased breath sounds at the bases. No rales or wheezing or rhonchi. GASTROINTESTINAL: Abdomen mildly distended, bowel sounds are present and normoactive, with tenderness R side. No guarding or rebound. There is an incision in the umbilical area which is dry with no redness and no drainage. MUSCULOSKELETAL: Extremities without clubbing, cyanosis, or edema. No calf tenderness. Feet are warm to touch. NEUROLOGICAL: Non-focal PSYCH: Normal affect, calm and cooperative LINE: PIV with no evidence of infection Assessment & Plan Remarks IMPRESSION Bacteremia with enterococcus, source concern likely is biliary source. Her LFTs are elevated again. 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
--- NOTE | 2016-09-03 17:21 | HHI.GIFU ---
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 Resting in bed. Has bloating and discomfort after eating, but otherwise feels okay. No n/v. (Elena Lowery) Objective Vitals I&O Vital Signs Date Time Temp Pulse Resp B/P Pulse Ox O2 Delivery O2 Flow Rate FiO2 09/03/16 16:23 97.0 106 20 92/55 96 09/03/16 13:48 100 20 96/64 96 09/03/16 12:00 96.4 100 20 97/66 98 09/03/16 09:30 98 Nasal Cannula 3.00 09/03/16 08:48 Nasal Cannula 3.00 09/03/16 08:47 103 09/03/16 08:41 97.6 100 20 122/77 96 09/03/16 04:00 97.6 100 17 113/73 97 09/03/16 00:00 96.2 107 17 100/64 97 09/02/16 23:45 20 09/02/16 21:27 95 Nasal Cannula 3.00 09/02/16 20:00 108 09/02/16 20:00 96.5 121 17 97/56 98 09/02/16 20:00 98 Nasal Cannula 3.00 32 I/O 09/02/16 09/02/16 09/02/16 09/03/16 09/03/16 09/03/16 07:00 15:00 23:00 07:00 15:00 23:00 Intake Total 300 ml Output Total 900 ml Balance -900 ml 300 ml IV Total 300 ml Output Urine Total 900 ml # Voids 1 2 1 2 # Bowel Movements 1 1 Laboratory Laboratory Tests Test 09/03/16 00:45 Vancomycin Level Trough 1.6 Date/Time Procedure Status Source Growth 09/01/16 18:25 Aerobic Blood Culture - Preliminary Resulted Blood Peripheral NO GROWTH IN 2 DAYS 09/01/16 18:25 Anaerobic Blood Culture - Preliminary Resulted Blood Peripheral NO GROWTH IN 2 DAYS 08/31/16 01:40 Aerobic Blood Culture - Final Complete Blood Peripheral Enterococcus Faecalis 08/31/16 01:40 Anaerobic Blood Culture - Final Complete Blood Peripheral ONLY AEROBIC CULTURE ORDERED Imaging Last Impressions Gall Bladder Ultrasound 09/02/16 0000 Signed Impressions: Service Date/Time: August 09:32 - CONCLUSION: 1. 2.7 cm gallstone in gallbladder without biliary ductal dilatation. Right pleural effusion. Jorge Cody MD Chest X-Ray 08/31/16 Signed Impressions: Service Date/Time: Wednesday, August 31, 2016 06:41 - CONCLUSION: Unchanged bilateral pleural effusions and bibasilar infiltrates. Bert Nunes Jr., MD Cyst Biopsy Asp-Paracentesis US 08/16/16 0000 Signed Impressions: Service Date/Time: Tuesday, August 16, 2016 09:24 - CONCLUSION: Uncomplicated ultrasound guided paracentesis. Grady Wilson MD Pelvis Ultrasound 08/14/16 0000 Signed Impressions: Service Date/Time: Sunday, August 14, 2016 22:18 - CONCLUSION: 1. Moderate amount of ascites within the pelvis. 2. Lack of visualization of both ovaries. 3. No discrete mass observed. Bert Nunes Jr., MD Chest CT 08/14/16 0000 Signed Impressions: Service Date/Time: Monday, August 15, 2016 07:53 - CONCLUSION: Bilateral mild pleural effusions being greater on the right. Fadi Cordova MD Hepatobiliary Scan Nuclear Medicine 08/09/16 0000 Signed Impressions: Service Date/Time: Tuesday, August 09, 2016 20:50 - CONCLUSION: Nonvisualization of the gallbladder however the patient does have a stent in place. I reviewed the CT scan from the same day which failed to demonstrate any obvious gallbladder wall thickening. Delayed images of the gallbladder will be performed. Matt Tovar MD ADDENDUM: COMPARISON: BILIARY SCAN (H[facility]), July 30, 2016, 13:41. A delayed image in anterior and right lateral projection was performed at 16 hours. There is no activity seen within the lumen of gallbladder. Since the patient has an indwelling biliary stent, absence of gallbladder visualization is nonpredictive with respect to cystic duct obstruction. Bert Brandon MD Abdomen/Pelvis CT 08/09/16 0000 Signed Impressions: Service Date/Time: Tuesday, August 09, 2016 17:46 - CONCLUSION: 1. Silastic biliary stent now present and appears appropriately positioned. Decreased intrahepatic biliary distention, now mild. No pancreatitis or other acute complication demonstrated. 2. Increased ascites, moderate. Also mild to moderate body wall edema/anasarca developing. 3. Mild enteritis/colitis possible versus reactive wall thickening from the ascites. In any event, no obstruction demonstrated. Fadi Yin MD Physical Exam HEENT: Normocephalic; atraumatic; no jaundice. CHEST: CTA. CARDIAC: ST ABDOMEN: +BS, soft, very mildly, mild RUQ/epigastric tenderness, mild ascites EXTREMITIES: Mild BLE, edema. SKIN: Normal; no rash; no jaundice. ORNAMENTER HAND: No focal deficits; alert and oriented times three. (LoweryElena Sunita EYEGL[employer] LENS GENERATOR) Assessment and Plan Plan ASSESSMENT: - Poorly differentiated non-small cell carcinoma diffusely involving the peritoneal surface with malignant ascites. Suspected primary pancreatic/ biliary source. AFP 2.1, CEA 1.1, Ca19-9 14.4, Ca 125 338. S/P Cyst Biopsy Asp-Paracentesis US (08/11/16)----> Uncomplicated ultrasound guided paracentesis with 5000cc of fluid removed. 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 This is suspicious for malignant ascites, but no obvious primary source at this time. S/P Pelvix US and Chest CT- Bilateral mild pleural effusions, greater on the right, moderate amount of ascites within the pelivs, but no obvious mass detected. S/P rpt. paracentesis (08/16) with 30cc removed for diagnostic purposes, cytology pending. Cx no growth x 48 hours. S/P EUS (08/18)-----> Unremarkable endoscopic ultrasound. S/P Diagnostic laparoscopy, laparoscopic peritoneal biopsy (08/25/16), pathology with peritoneal biopsies with invasive poorly differentiated non- small cell carcinoma, diffusely involving the peritoneal surface. Oncology/palliative care following. Plan is for patient eventually to go home with hospice. - High grade CBD stricture. S/P ERCP with brushings/stent placement (07/31/16)---- > intra hepatic duct dilatation, s/p brushings, s/p stent placement. Pathology revealed rare atypical cells present in the background of numerous glandular epithelial cells, malignancy cannot be excluded. LFTs have been trending down since stent placement. AFP during last hospitalization was 2.4. Ca19-9 10.7 , CEA 1.2, Ca 125 338.4. Pt started having fevers/increased elevated LFTs on 09/01. US (09/02/16)-----> 2.7 cm gallstone in gallbladder without biliary ductal dilatation. Right pleural effusion. WBC 14.7. LFT better, T. Bili 0.8, AST 73, ALT 62, Alk Phosph 721. Will plan for ERCP with permanent metal stent placement, tentatively Tuesday if metal stent available (has to be ordered). - Abdominal pain, Nausea, Decreased appetite, Early Satiety. Improved, but still having bloating and discomfort after meals. - Leukocytosis. WBC 14.7. Flagyl, Levaquin. - ? Underlying liver disease, ?Cirrhosis. Hepatitis panel negative. ARAMIS negative. AMA < 20.0, ASMA negative, AFP 2.1, Iron saturation 27.9, Ferritin 41, Ceruloplasmin 36, Alpha 1 Antitrypsin 191. Likely more related to above. PLAN: - Possible ERCP with permanent metal stent (palliative) on Tuesday (metal stent has to be ordered)- D/W patient via [employer] and she would like to proceed. - Obtain consents - NPO after Tuesday night - Hold lovenox after Tuesday night - Cont. Flagyl, Levaquin, Zyvox - Cont. Spironolactone and Lasix - Cont. PPI - Monitor labs - Oncology following - Palliative care following - Supportive care - Further recommendations as the case develops - Pt seen and examined by Dr. Whitehead and myself and this note is written on her behalf (Elena Lowery) Elena Lowery September 03, 2016 17:21 Shanell Whitehead MD September 03, 2016 17:48
--- NOTE | 2016-09-03 17:33 | HHI.PR ---
Subjective Remarks Follow-up for metastatic adenocarcinoma Patient continues complaining of abdominal pain with by mouth intake. Otherwise she has no complaints. Denies any shortness of breathing, chest pain , palpitation, lightheadedness or dizziness. She continues to be afebrile. Stratus visual education director use. Objective Vitals Vital Signs Date Time Temp Pulse Resp B/P Pulse Ox O2 Delivery O2 Flow Rate FiO2 09/03/16 16:23 97.0 106 20 92/55 96 09/03/16 13:48 100 20 96/64 96 09/03/16 12:00 96.4 100 20 97/66 98 09/03/16 09:30 98 Nasal Cannula 3.00 09/03/16 08:48 Nasal Cannula 3.00 09/03/16 08:47 103 09/03/16 08:41 97.6 100 20 122/77 96 09/03/16 04:00 97.6 100 17 113/73 97 09/03/16 00:00 96.2 107 17 100/64 97 09/02/16 23:45 20 09/02/16 21:27 95 Nasal Cannula 3.00 09/02/16 20:00 108 09/02/16 20:00 96.5 121 17 97/56 98 09/02/16 20:00 98 Nasal Cannula 3.00 32 I/O 09/02/16 09/02/16 09/02/16 09/03/16 09/03/16 09/03/16 07:00 15:00 23:00 07:00 15:00 23:00 Intake Total 300 ml Output Total 900 ml Balance -900 ml 300 ml IV Total 300 ml Output Urine Total 900 ml # Voids 1 2 1 2 # Bowel Movements 1 1 Result Diagram: 08/31/16 0145 08/31/16 0145 Objective Remarks Gen in NAD Neck: Supple, airway patent. Lungs: good kelly air movement. Heart: Clear tones, NL S1S2, No JVD Abdomen: Soft, tender epigastric area, no peritoneal irritation, BS few. Extremities: Warm, flushed. Neuro: Awake alert oriented 3. Moves 4 limbs. Medications and IVs Current Medications Morphine Sulfate (Morphine Inj) 4 mg ONCE ONCE IV PUSH Last administered on t 16:39; Start 08/09/16 at 16:15; Stop 08/09/16 at 16:16; Status DC Ondansetron HCl 4 mg 4 mg ONCE ONCE IVP Last administered on 08/09/16 16:38; Start 08/09/16 at 16:15; Stop 08/09/16 at 16:16; Status DC Sodium Chloride (NS 1000 ml Inj) 1,000 ml @ 1,000 mls/hr Q1H IV Last administered on 08/09/16 16:39; Start 08/09/16 at 16:03; Stop 08/09/16 at 17:02 ; Status DC Sodium Chloride (NS Flush) 2 ml UNSCH PRN IV FLUSH FLUSH AFTER USING IV ACCESS Last administered on 08/09/16 20:01; Start 08/09/16 at 16:15; Stop 08/10/16 at 11:08; Status DC Ketorolac Tromethamine (Toradol Inj) 30 mg ONCE ONCE IVP Last administered on 08/09/16 16:38; Start 08/09/16 at 16:15; Stop 08/09/16 at 16:16; Status DC Iohexol 85 ml 85 ml STK-MED ONCE IV Last administered on 08/09/16 17:50; Start 08/09/16 at 17:50; Stop 08/09/16 at 17:51; Status DC Vancomycin HCl 1000 mg/Sodium Chloride 250 ml @ 250 mls/hr ONCE STAT IV Last administered on 08/09/16 20:01; Start 08/09/16 at 18:42; Stop 08/09/16 at 19:41 ; Status DC Aztreonam 2000 mg/ Sodium Chloride 100 ml @ 200 mls/hr ONCE STAT IV Last administered on 08/09/16 20:51; Start 08/09/16 at 18:42; Stop 08/09/16 at 19:11 ; Status DC Metronidazole (Flagyl 500 Mg Inj) 100 ml @ 100 mls/hr ONCE STAT IV Last administered on 08/09/16 20:01; Start 08/09/16 at 18:42; Stop 08/09/16 at 19:41 ; Status DC Sodium Chloride (NS Flush) 2 ml UNSCH PRN IV FLUSH FLUSH AFTER USING IV ACCESS Last administered on 08/22/16 23:00; Start 08/09/16 at 20:45 Sodium Chloride (NS Flush) 2 ml BID IV FLUSH Last administered on 09/03/16 08: 36; Start 08/09/16 at 21:00 Naloxone HCl (Narcan Inj) 0.4 mg UNSCH PRN IV SEE LABEL COMMENTS; Start at 20:45 Hydromorphone HCl 0.2 mg 0.2 mg Q4H PRN IV PUSH PAIN SCALE 1 TO 5 Last administered on 08/31/16 00:09; Start 08/09/16 at 23:45 Ciprofloxacin/ Dextrose 200 ml @ 200 mls/hr Q12H IV Last administered on 04:38; Start 08/10/16 at 05:00; Stop 08/17/16 at 21:30; Status DC Metronidazole (Flagyl 500 Mg Inj) 100 ml @ 100 mls/hr Q6H IV Last administered on 08/20/16 11:20; Start 08/10/16 at 06:00; Stop 08/20/16 at 13:33 ; Status DC Pantoprazole Sodium (Protonix) 40 mg DAILY PO Last administered on 09/03/16 08 :32; Start 08/10/16 at 09:00 Morphine Sulfate 2 mg 2 mg Q3H PRN IV PUSH pain >5 Last administered on 18:39; Start 08/10/16 at 08:00; Stop 08/12/16 at 07:21; Status DC Sodium Chloride (NS 1000 ml Inj) 1,000 ml @ 75 mls/hr [id number] IV Last administered on 08/12/16 05:08; Start 08/10/16 at 11:17; Stop 08/12/16 at 13:58 ; Status DC Simethicone (Mylicon Chew) 80 mg ONCE ONCE CHEW Last administered on 15:23; Start 08/12/16 at 14:00; Stop 08/12/16 at 14:01; Status DC Simethicone (Mylicon Chew) 80 mg PCHS PRN CHEW BLOATING; Start 08/12/16 at 14: 00 Furosemide (Lasix) 20 mg BID@09,18 PO Last administered on 09/03/16 08:32; Start 08/13/16 at 15:45 Potassium Chloride (KCl) 20 meq ONCE ONCE PO Last administered on 08/13/16 16 :00; Start 08/13/16 at 15:45; Stop 08/13/16 at 15:46; Status DC Spironolactone (Aldactone) 25 mg BID@09,18 PO Last administered on 09/03/16 08 :32; Start 08/14/16 at 09:00 Iohexol (Omnipaque 350 Inj) 50 ml STK-MED ONCE IV Last administered on 08:01; Start 08/15/16 at 08:01; Stop 08/15/16 at 08:02; Status DC Clonidine (Catapres) 0.1 mg ONCE ONCE PO Last administered on 08/16/16 04:13 ; Start 08/16/16 at 04:00; Stop 08/16/16 at 04:01; Status DC Propofol (Diprivan 200 Mg/20 ml Inj) 450 mg STK-MED ONCE IV ; Start 08/17/16 at 14:14; Stop 08/17/16 at 15:01; Status DC Fentanyl Citrate (fentaNYL INJ) 100 mcg STK-MED ONCE .ROUTE ; Start 08/17/16 at 15:02; Stop 08/17/16 at 15:03; Status DC Miscellaneous Information ALL NURSING DEPARTME... UNSCH PRN .XX SEE LABEL COMMENTS; Start 08/17/16 at 14:58; Stop 08/18/16 at 14:57; Status DC Albuterol/ Ipratropium (Duoneb Neb) 1 ampule Q4HR NEB NEB Last administered on 08/21/16 15:06; Start 08/17/16 at 18:00; Stop 08/21/16 at 18:00; Status DC Methylprednisolone Sodium Succinate (SoluMEDROL INJ) 125 mg ONCE ONCE IV PUSH Last administered on 08/17/16 18:20; Start 08/17/16 at 18:30; Stop 08/17/16 at 18:31; Status DC Methylprednisolone Sodium Succinate (SoluMEDROL INJ) 60 mg Q6HR IV PUSH Last administered on 08/20/16 11:23; Start 08/18/16 at 00:00; Stop 08/20/16 at 14:02 ; Status DC Albuterol Sulfate (Albuterol Neb) 2.5 mg Q4HR NEB PRN INH SHORTNESS OF BREATH; Start 08/17/16 at 18:15; Stop 08/21/16 at 18:15; Status DC Metoprolol Tartrate (Lopressor) 25 mg Q12HR PO Last administered on 08/23/16 10 :02; Start 08/17/16 at 21:00; Stop 08/23/16 at 17:42; Status DC Metoprolol Tartrate (Lopressor Inj) 5 mg Q6H PRN IV PUSH P > 130; Start at 18:45; Stop 08/19/16 at 21:23; Status DC Acetaminophen 1000 mg 1,000 mg ONCE ONCE IV Last administered on 08/17/16 19: 03; Start 08/17/16 at 19:00; Stop 08/17/16 at 19:01; Status DC Cefepime HCl/ Sodium Chloride (Maxipime Inj/NS Inj) 100 ml @ 200 mls/hr Q12H IV Last administered on 08/23/16 10:02; Start 08/17/16 at 22:00; Stop 08/23/16 at 12:16; Status DC Diphenhydramine HCl (Benadryl Inj) 25 mg Q6H PRN IV PUSH hives, itching; Start 08/17/16 at 22:00 Miscellaneous Information Patient in critical care unit? Ass... [id number] .XX ; Start 08/18/16 at 02:30 Chlorhexidine Gluconate (Chlorhexidine 2% Cloth) 3 pack DAILY@04 TOPICAL Last administered on 08/22/16 04:00; Start 08/18/16 at 04:00; Stop 08/22/16 at 04:01 ; Status DC Chlorhexidine Gluconate (Chlorhexidine 2% Cloth) 3 pack UNSCH PRN TOPICAL HYGIENIC CARE; Start 08/18/16 at 02:30; Stop 08/23/16 at 02:15; Status DC Potassium Bicarb/ Potassium Chloride 25 meq 25 meq ONCE ONCE PO Last administered on 08/19/16 10:00; Start 08/19/16 at 09:00; Stop 08/19/16 at 09:01 ; Status DC Vancomycin HCl 1000 mg/Sodium Chloride 250 ml @ 250 mls/hr ONCE ONCE IV ; Start 08/19/16 at 14:15; Stop 08/19/16 at 15:14; Status UNV Pharmacy Profile Note 0 ml @ 0 mls/hr UNSCH OTHER ; Start 08/19/16 at 14:15; Stop 08/20/16 at 13:31; Status DC Vancomycin HCl/ Sodium Chloride (Vancomycin Inj/ NS 500 ml Inj) 512.5 ml @ 250 mls/hr Q12H IV Last administered on 08/20/16 06:53; Start 08/19/16 at 16:00; Stop 08/20/16 at 11:34; Status DC Miscellaneous Information SPECIFIC LAB TO BE DRAWN:VANCOMYCIN DATE TO BE DR... ONCE ONCE .XX ; Start 08/21/16 at 03:45; Stop 08/21/16 at 03:46; Status Cancel Diphenhydramine HCl 25 mg 25 mg ONCE ONCE PO Last administered on 08/19/16 23 :33; Start 08/19/16 at 23:15; Stop 08/19/16 at 23:16; Status DC Vancomycin HCl/ Sodium Chloride (Vancomycin Inj/ NS 250 ml Inj) 262.5 ml @ 250 mls/hr Q12H IV ; Start 08/20/16 at 16:00; Stop 08/20/16 at 16:00; Status DC Metronidazole (Flagyl) 500 mg Q8HR PO Last administered on 08/25/16 05:40; Start 08/20/16 at 14:00; Stop 08/25/16 at 10:31; Status DC Prednisone (Deltasone) 20 mg BID PO Last administered on 08/24/16 08:27; Start 08/20/16 at 21:00; Stop 08/24/16 at 15:05; Status DC Enalaprilat (Vasotec Inj) 1.25 mg Q6H PRN IV PUSH SBP>180 or DBP>100; Start at 14:00 Amlodipine Besylate (Norvasc) 5 mg DAILY PO Last administered on 09/01/16 10: 06; Start 08/21/16 at 15:00; Stop 09/02/16 at 15:54; Status DC Temazepam (Restoril) 7.5 mg ONCE ONCE PO Last administered on 08/21/16 21:58 ; Start 08/21/16 at 20:00; Stop 08/21/16 at 20:01; Status DC Potassium Chloride (KCl) 40 meq ONCE ONCE PO Last administered on 08/22/16 17 :30; Start 08/22/16 at 16:45; Stop 08/22/16 at 16:46; Status DC Levofloxacin (Levaquin) 750 mg DAILY PO Last administered on 08/25/16 08:36; Start 08/23/16 at 13:00; Stop 08/25/16 at 10:31; Status DC Albuterol/ Ipratropium (Duoneb Neb) 1 ampule QID NEB PRN NEB wheezing Last administered on 08/23/16 17:47; Start 08/23/16 at 15:00; Stop 08/27/16 at 16:46; Status DC Metoprolol Tartrate (Lopressor) 12.5 mg Q12HR PO Last administered on 08/30/16 20:17; Start 08/23/16 at 21:00; Stop 08/30/16 at 22:54; Status DC Metoprolol Tartrate (Lopressor) 12.5 mg ONCE ONCE PO Last administered on 18:59; Start 08/23/16 at 17:30; Stop 08/23/16 at 17:41; Status DC Miscellaneous (Pill Splitter) 1 ea UNSCH PRN OTHER SEE LABEL COMMENTS; Start at 17:45 Prednisone 10 mg 10 mg BID PO Last administered on 08/30/16 08:44; Start at 21:00; Stop 08/30/16 at 13:13; Status DC Lactated Ringer's 1,000 ml @ 30 mls/hr Q24H PRN IV SEE LABEL COMMENTS; Start at 03:30; Stop 08/28/16 at 03:29; Status DC Sodium Chloride (NS 500 ml Inj) 500 ml @ 30 mls/hr [id number] PRN IV SEE LABEL COMMENTS; Start 08/25/16 at 03:30; Stop 08/28/16 at 03:29; Status DC Metoprolol Tartrate (Lopressor) 25 mg SENIOR GENETIC COUNSELOR PRN PO SEE LABEL COMMENTS; Start 08/25/16 at 03:30; Stop 08/28/16 at 03:29; Status DC Povidone Iodine (Betadine 5% Antisepsis Kit) 1 applic SENIOR GENETIC COUNSELOR PRN EACH NARE SEE LABEL COMMENTS; Start 08/25/16 at 03:30; Stop 08/28/16 at 03:29; Status DC Chlorhexidine Gluconate 3 pack 3 pack SENIOR GENETIC COUNSELOR PRN TOPICAL SEE LABEL COMMENTS; Start 08/25/16 at 03:30; Stop 08/28/16 at 03:29; Status DC Levofloxacin/ Dextrose 150 ml @ 100 mls/hr Q24H IV Last administered on 09:23; Start 08/26/16 at 09:00; Stop 08/27/16 at 12:00; Status DC Metronidazole (Flagyl 500 Mg Inj) 100 ml @ 100 mls/hr Q8H IV Last administered on 08/27/16 22:11; Start 08/25/16 at 14:00; Stop 08/27/16 at 23:55; Status DC Bupivacaine HCl (Marcaine Pf 0.5% Inj) 30 ml STK-MED ONCE .ROUTE ; Start at 14:52; Stop 08/25/16 at 14:53; Status DC Sugammadex Sodium (Bridion Inj) 200 mg STK-MED ONCE IV PUSH ; Start 08/25/16 at 15:51; Stop 08/25/16 at 15:52; Status DC Bupivacaine HCl/ Epinephrine Bitart (Sensorcaine-Epinephrine Pf 0.25% Inj) 10 ml STK-MED ONCE INFIL Last administered on 08/25/16 15:45; Start 08/25/16 at 15: 45; Stop 08/25/16 at 16:12; Status DC Morphine Sulfate (*morphine INJ PERIprocedure ONLY) 8 mg STK-MED ONCE .ROUTE Last administered on 08/25/16 16:50; Start 08/25/16 at 16:50; Stop 08/25/16 at 16: 51; Status DC Ipratropium [place] (Atrovent Neb) 0.5 mg Q4HR NEB NEB Last administered on 15:28; Start 08/26/16 at 17:00; Stop 08/27/16 at 16:47; Status DC Budesonide (Pulmicort Respule Neb) 0.5 mg Q12HR NEB NEB Last administered on 08:45; Start 08/26/16 at 20:00 Guaifenesin (Mucinex Er) 600 mg BID PO Last administered on 09/03/16 08:31; Start 08/26/16 at 21:00 Albuterol/ Ipratropium 1 ampule 1 ampule Q4HR NEB NEB Last administered on 08/31 19:44; Start 08/27/16 at 20:00; Stop 08/31/16 at 20:00; Status DC Sodium Chloride 1,000 ml @ 999 mls/hr BOLUS ONCE IV Last administered on 13:46; Start 08/28/16 at 12:30; Stop 08/28/16 at 13:30; Status DC Sodium Chloride (NS 1000 ml Inj) 1,000 ml @ 100 mls/hr Q10H IV Last administered on 09/01/16 18:49; Start 08/28/16 at 12:30; Stop 09/02/16 at 15:55 ; Status DC Enoxaparin Sodium (Lovenox Inj) 40 mg Q24H SQ Last administered on 09/03/16 14 :36; Start 08/28/16 at 17:00; Status Future Hold Hydromorphone HCl (Dilaudid Pf Inj) 0.5 mg Q4H PRN IV PUSH PAIN SCALE 6 TO 10 Last administered on 09/02/16 20:31; Start 08/29/16 at 12:15 Prednisone (Deltasone) 5 mg BID PO Last administered on 09/03/16 08:32; Start 08/30/16 at 21:00 Famotidine (Pepcid) 20 mg BID PO Last administered on 09/03/16 08:32; Start at 13:15 Acetaminophen (Tylenol) 650 mg ONCE ONCE PO Last administered on 08/30/16 23: 01; Start 08/30/16 at 23:00; Stop 08/30/16 at 23:01; Status DC Metoprolol Tartrate (Lopressor) 25 mg Q12HR PO Last administered on 09/03/16 08:32; Start 08/31/16 at 09:00 Ibuprofen 400 mg 400 mg ONCE PO Last administered on 08/31/16 00:42; Start 08/31 at 00:30; Stop 08/31/16 at 03:00; Status DC Metronidazole 100 ml @ 100 mls/hr ONCE ONCE IV Last administered on 08/31/16 21:07; Start 08/31/16 at 21:00; Stop 08/31/16 at 21:59; Status DC Cefepime HCl/ Sodium Chloride (Maxipime Inj/NS Inj) 100 ml @ 200 mls/hr ONCE ONCE IV Last administered on 08/31/16 22:18; Start 08/31/16 at 21:00; Stop at 21:29; Status DC Ibuprofen (Motrin) 400 mg Q6H PRN PO fever >101 Last administered on 09/01/16 15:28; Start 08/31/16 at 21:00 Ondansetron HCl 4 mg 4 mg Q6HR PRN IV PUSH nausea Last administered on 05:24; Start 08/31/16 at 21:00 Vancomycin HCl 1000 mg/Sodium Chloride 250 ml @ 250 mls/hr ONCE ONCE IV ; Start 09/01/16 at 11:00; Stop 09/01/16 at 11:59; Status UNV Pharmacy Profile Note 0 ml @ 0 mls/hr UNSCH OTHER ; Start 09/01/16 at 11:00; Stop 09/01/16 at 19:58; Status DC Vancomycin HCl/ Sodium Chloride (Vancomycin Inj/ NS 250 ml Inj) 262.5 ml @ 250 mls/hr Q12H IV Last administered on 09/01/16 13:27; Start 09/01/16 at 13:00; Stop 09/01/16 at 19:58; Status DC Miscellaneous Information SPECIFIC LAB TO BE DRAWN:VANCOMYCIN TROUGH DATE TO... ONCE ONCE .XX Last administered on 09/03/16 00:45; Start 09/03/16 at 00:45; Stop 09/03/16 at 00:46; Status DC Linezolid (Zyvox 600 Mg Premix) 300 ml @ 300 mls/hr Q12H IV Last administered on 09/03/16 05:24; Start 09/01/16 at 18:00; Stop 09/03/16 at 15:11; Status DC Metronidazole (Flagyl) 500 mg Q8HR PO Last administered on 09/03/16 14:35; Start 09/01/16 at 18:00; Stop 09/15/16 at 23:00 Levofloxacin (Levaquin) 750 mg DAILY PO Last administered on 09/03/16 08:32; Start 09/01/16 at 18:00; Stop 09/08/16 at 23:00 Furosemide (Lasix Inj) 40 mg ONCE ONCE IV PUSH Last administered on 09/01/16 20:49; Start 09/01/16 at 20:00; Stop 09/01/16 at 20:01; Status DC Potassium Chloride (KCl) 40 meq ONCE ONCE PO Last administered on 09/01/16 20 :50; Start 09/01/16 at 20:00; Stop 09/01/16 at 20:01; Status DC Fentanyl (Duragesic 25 Mcg Patch.72 Hr) 1 patch Q3D T-DERMAL Last administered on 09/02/16 13:32; Start 09/02/16 at 13:00 Potassium Chloride (KCl) 30 meq ONCE ONCE PO Last administered on 09/02/16 13 :30; Start 09/02/16 at 13:00; Stop 09/02/16 at 13:01; Status DC Miscellaneous Information 1 Q3D T-DERMAL ; Start 09/05/16 at 13:00 Linezolid (Zyvox) 600 mg Q12HR PO ; Start 09/03/16 at 21:00; Stop 09/13/16 at 20 :59 A/P Problem List: (1) Abdominal pain ICD Code: R10.9 Status: Acute Assessment and Plan 56-year-old female with history of CBD stricture s/p ERCP with stent placement 1 week ago from admission presents with abdominal pain, nausea/ vomiting 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 -Imaging reviewed: CT abd showed silastic biliary stent now present and appears appropriately positioned; Decreased intrahepatic biliary distention, now mild; Increased ascites, moderate; mild to moderate body wall edema/anasarca developing; Mild enteritis/colitis possible versus reactive wall thickening from the ascites. HIDA 08/10 shows nonvisualization of the gallbladder. -Consulted gastroenterology, per Dr. Whitehead signed off. -Surgical oncology, Dr. Wylie, consulted. Not a good surgical candidate for cholecystectomy at this time. Symptoms not c/w cholecystitis at this time. -s/p U/S guided abdominal paracentesis 08/11 removed 5L green cloudy fluid, WBC 1320, RBC 897. -tumor markers remarkable for CA-125 elevated at 338, culture negative. -Diuresis with Lasix and Aldactone for ascites -Palliative care oncology following. -Patient had repeat paracentesis done on 08/16/2016. -Patient had ERCP/EUS done today on 08/17/2016. -repeat cytology positive for non-small cell neoplasm. GI signed off. -supportive treatment with pain control and antiemetics prn. Simethicone prn. -s/p Diagnostic and staging laparoscopies and Peritoneal biopsy 08/26/2016 showing adenocarcinoma. -Dr. Stern explained diagnosis, prognosis and management. Patient opted for hospice. -Patient wants inpatient hospice. d/w case management. -Patient will need a permanent stent so she scheduled for ERCP with stent placement on Tuesday for palliative management. Group D enterococcus faecalis -One out of 4 blood cultures positive showing group D enterococcus faecalis -Infectious disease is following patient is on Levaquin, Flagyl, Zyvox. Respiratory failure with hypoxia -Occurred after ERCP/EUS -Continue with prednisone taper. Would consider tapering prednisone again tomorrow. Acute Colitis: seen on CT abdomen as above RESOLVED -s/p treatment with IV Cipro/Flagyl for gastroenterology. -diet as tolerated per gastroenterology -Recommending eating small portions to avoid simulating pain. -GI signed off. Recent High Grade CBD Stricture: -s/p ERCP with stent placement 07/31. Pathology revealed rare atypical cells present in the background of numerous glandular epithelial cells, malignancy cannot be excluded. LFTs have been trending down since stent placement. CT abd showed biliary stent appropriately positioned, decreased biliary distention, no pancreatitis. -Gastroenterology on board -Patient schedule for an ERCP with a permanent stent placement for palliative management scheduled for Tuesday. Left-sided pneumonia. -Due to aspiration pneumonia after EUS. Treatment already completed. Hyponatremia: likely secondary to dehydration -Na 129 upon arrival -s/p IVF Hypokalemia -replenished on as needed DVT prophylaxiswith Lovenox Discharge Planning Poor prognosis and can only offer palliative treatment. Patient wishes to go home with home hospice. She will have a ERCP with permanent stent placement on Tuesday. If she does well after the procedure with short monitoring she can go home with home hospice. Problem Qualifiers (1) Abdominal pain: Qualified Code: R10.11 - Right upper quadrant abdominal pain Maddie Jewell MD September 03, 2016 17:33
[2016-09-03] MEDS ORDERED: DILTIAZEM HCL 25 MG/5 ML VIAL IV ONE (18:45)
[2016-09-03] MEDS: LINEZOLID 600 MG TAB PO SCH (22:09)
[2016-09-04] VITALS (10 sets, daily range): BP systolic 98–139; BP diastolic 61–71; PULSE 91–119; RESP 15–20; TEMP 95.7–97.6; O2SAT 96–99
[2016-09-04] MEDS: DILTIAZEM HCL 30 MG TAB PO SCH ×4 (00:59→17:23)
[2016-09-04] MEDS: metroNIDAZOLE 500 MG TAB PO SCH ×3 (05:17→21:26)
[2016-09-04] MEDS: RESP: BUDESONIDE 0.5 MG/2 ML NEB NEB SCH ×2 (09:12→18:55)
[2016-09-04] MEDS: METOPROLOL TARTRATE 25 MG TAB PO SCH ×2 (09:23→21:26)
[2016-09-04] MEDS: guaiFENesin E.R. 600 MG TAB PO SCH ×2 (09:23→21:26)
[2016-09-04] MEDS: LEVOFLOXACIN 750 MG TAB PO SCH (09:23)
[2016-09-04] MEDS: LINEZOLID 600 MG TAB PO SCH ×2 (09:23→21:26)
[2016-09-04] MEDS: SODIUM CHLORIDE 0.9% FLUSH 10 ML FLUSH IV FLUSH SCH ×2 (09:23→21:00)
[2016-09-04] MEDS: FAMOTIDINE 20 MG TAB PO SCH ×2 (09:24→21:26)
[2016-09-04] MEDS: SPIRONOLACTONE 25 MG TAB PO SCH ×2 (09:24→17:23)
[2016-09-04] MEDS: PANTOPRAZOLE SOD 40 MG DELAYED RELEASE TAB PO SCH (09:24)
[2016-09-04] MEDS: predniSONE 5 MG TAB PO SCH (09:24)
[2016-09-04] MEDS: FUROSEMIDE 20 MG TAB PO SCH ×2 (09:24→17:23)
--- NOTE | 2016-09-04 10:28 | HHI.PR ---
Subjective Remarks Pt tells me she feels better today. Still has SOB but the NC is helping. Denies any palpitations, CP/N/V Objective Vitals Vital Signs Date Time Temp Pulse Resp B/P Pulse Ox O2 Delivery O2 Flow Rate FiO2 09/04/16 09:28 97 Nasal Cannula 3.00 09/04/16 09:17 106 09/04/16 09:13 97 Nasal Cannula 2.00 09/04/16 07:55 96.1 100 20 139/65 97 09/04/16 04:00 97.3 91 15 101/63 96 09/04/16 00:00 97.6 119 16 100/71 97 09/03/16 22:44 98 Nasal Cannula 2.00 09/03/16 21:55 97 Nasal Cannula 3.00 09/03/16 20:13 97 09/03/16 20:00 96.3 123 18 114/69 97 09/03/16 18:56 109 20 114/69 96 09/03/16 18:30 98 3.00 09/03/16 18:30 129 18 117/81 97 09/03/16 18:22 97.9 150 20 113/61 96 09/03/16 16:23 97.0 106 20 92/55 96 09/03/16 13:48 100 20 96/64 96 09/03/16 12:00 96.4 100 20 97/66 98 I/O 09/03/16 09/03/16 09/03/16 09/04/16 09/04/16 09/04/16 07:00 15:00 23:00 07:00 15:00 23:00 Intake Total 300 ml 240 ml Balance 300 ml 240 ml Intake Oral 240 ml IV Total 300 ml # Voids 2 1 2 # Bowel Movements 1 Result Diagram: 08/31/16 0145 08/31/16 0145 Imaging Last Impressions Gall Bladder Ultrasound 09/02/16 0000 Signed Impressions: Service Date/Time: August 09:32 - CONCLUSION: 1. 2.7 cm gallstone in gallbladder without biliary ductal dilatation. Right pleural effusion. Jorge Cody MD Chest X-Ray 08/31/16 0000 Signed Impressions: Service Date/Time: Wednesday, August 31, 2016 06:41 - CONCLUSION: Unchanged bilateral pleural effusions and bibasilar infiltrates. Bert Nunes Jr., MD Cyst Biopsy Asp-Paracentesis US 08/16/16 Signed Impressions: Service Date/Time: Tuesday, August 16, 2016 09:24 - CONCLUSION: Uncomplicated ultrasound guided paracentesis. Grady Wilson MD Pelvis Ultrasound 08/14/16 Signed Impressions: Service Date/Time: Sunday, August 14, 2016 22:18 - CONCLUSION: 1. Moderate amount of ascites within the pelvis. 2. Lack of visualization of both ovaries. 3. No discrete mass observed. Bert Nunes Jr., MD Chest CT 08/14/16 Signed Impressions: Service Date/Time: Monday, August 15, 2016 07:53 - CONCLUSION: Bilateral mild pleural effusions being greater on the right. Fadi Cordova MD Hepatobiliary Scan Nuclear Medicine 08/09/16 Signed Impressions: Service Date/Time: Tuesday, August 09, 2016 20:50 - CONCLUSION: Nonvisualization of the gallbladder however the patient does have a stent in place. I reviewed the CT scan from the same day which failed to demonstrate any obvious gallbladder wall thickening. Delayed images of the gallbladder will be performed. Matt Tovar MD ADDENDUM: COMPARISON: BILIARY SCAN ([facility]), July 30, 2016, 13:41. A delayed image in anterior and right lateral projection was performed at 16 hours. There is no activity seen within the lumen of gallbladder. Since the patient has an indwelling biliary stent, absence of gallbladder visualization is nonpredictive with respect to cystic duct obstruction. Bert Brandon MD Abdomen/Pelvis CT 08/09/16 0000 Signed Impressions: Service Date/Time: Tuesday, August 09, 2016 17:46 - CONCLUSION: 1. Silastic biliary stent now present and appears appropriately positioned. Decreased intrahepatic biliary distention, now mild. No pancreatitis or other acute complication demonstrated. 2. Increased ascites, moderate. Also mild to moderate body wall edema/anasarca developing. 3. Mild enteritis/colitis possible versus reactive wall thickening from the ascites. In any event, no obstruction demonstrated. Fadi Yin MD Objective Remarks Gen in NAD Neck: Supple, airway patent. Lungs: good kelly air movement. No wheezing auscultated. Heart: Slightly tachycardic, with no murmurs Abdomen: Soft, tender epigastric area, no peritoneal irritation, BS few. Extremities: Warm, flushed. Neuro: Awake alert oriented 3. Moves 4 limbs. 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 -Imaging reviewed: CT abd showed silastic biliary stent now present and appears appropriately positioned; Decreased intrahepatic biliary distention, now mild; Increased ascites, moderate; mild to moderate body wall edema/anasarca developing; Mild enteritis/colitis possible versus reactive wall thickening from the ascites. HIDA 08/10 shows nonvisualization of the gallbladder. -Consulted gastroenterology, per Dr. Whitehead signed off. -Surgical oncology, Dr. Wylie, consulted. Not a good surgical candidate for cholecystectomy at this time. Symptoms not c/w cholecystitis at this time. -s/p U/S guided abdominal paracentesis 08/11 removed 5L green cloudy fluid, WBC 1320, RBC 897. -tumor markers remarkable for CA-125 elevated at 338, culture negative. -Diuresis with Lasix and Aldactone for ascites -Palliative care oncology following. -Patient had repeat paracentesis done on 08/16/2016. -Patient had ERCP/EUS done today on 08/17/2016. -repeat cytology positive for non-small cell neoplasm. GI signed off. -supportive treatment with pain control and antiemetics prn. Simethicone prn. -s/p Diagnostic and staging laparoscopies and Peritoneal biopsy 08/26/2016 showing adenocarcinoma. -Dr. Stern explained diagnosis, prognosis and management. Patient opted for hospice. -Patient wants hospice. d/w case management. -Patient will need a permanent stent so she scheduled for ERCP with stent placement on Tuesday for palliative management. Group D enterococcus faecalis -One out of 4 blood cultures positive showing group D enterococcus faecalis -Infectious disease is following patient is on Levaquin, Flagyl, Zyvox. Respiratory failure with hypoxia -Occurred after ERCP/EUS -Continue with prednisone taper. Change to 5 mg daily Acute Colitis: seen on CT abdomen as above RESOLVED -s/p treatment with IV Cipro/Flagyl for gastroenterology. -diet as tolerated per gastroenterology -Recommending eating small portions to avoid simulating pain. -GI signed off. Recent High Grade CBD Stricture: -s/p ERCP with stent placement 07/31. Pathology revealed rare atypical cells present in the background of numerous glandular epithelial cells, malignancy cannot be excluded. LFTs have been trending down since stent placement. CT abd showed biliary stent appropriately positioned, decreased biliary distention, no pancreatitis. -Gastroenterology on board -Patient schedule for an ERCP with a permanent stent placement for palliative management scheduled for Tuesday. Left-sided pneumonia. -Due to aspiration pneumonia after EUS. Treatment already completed. Hyponatremia: likely secondary to dehydration -Na 129 upon arrival -s/p IVF Hypokalemia -replenished on as needed DVT prophylaxiswith Lovenox Discharge Planning Poor prognosis and can only offer palliative treatment. Patient wishes to go home with home hospice. She will have a ERCP with permanent stent placement on Tuesday. If she does well after the procedure with short monitoring she can go home with home hospice. Problem Qualifiers (1) Abdominal pain: Qualified Code: R10.11 - Right upper quadrant abdominal pain Amber Xie MD September 04, 2016 10:28
[2016-09-04] MEDS: ONDANSETRON HCL 4 MG/2 ML VIAL IV PUSH PRN (11:31)
[2016-09-04] MEDS: ENOXAPARIN SODIUM 40 MG/0.4 ML SYRINGE SQ SCH (17:23)
[2016-09-05] VITALS (9 sets, daily range): BP systolic 95–117; BP diastolic 57–65; PULSE 86–100; RESP 16–20; TEMP 96–96.9; O2SAT 93–97
[2016-09-05] MEDS: metroNIDAZOLE 500 MG TAB PO SCH ×3 (06:00→21:22)
[2016-09-05] MEDS: DILTIAZEM HCL 30 MG TAB PO SCH ×5 (06:00→23:27)
[2016-09-05] MEDS: RESP: BUDESONIDE 0.5 MG/2 ML NEB NEB SCH ×2 (08:32→22:06)
[2016-09-05] MEDS: LINEZOLID 600 MG TAB PO SCH ×2 (09:39→21:22)
[2016-09-05] MEDS: LEVOFLOXACIN 750 MG TAB PO SCH (09:39)
[2016-09-05] MEDS: FAMOTIDINE 20 MG TAB PO SCH ×2 (09:39→21:21)
[2016-09-05] MEDS: PANTOPRAZOLE SOD 40 MG DELAYED RELEASE TAB PO SCH (09:39)
[2016-09-05] MEDS: METOPROLOL TARTRATE 25 MG TAB PO SCH ×2 (09:39→21:22)
[2016-09-05] MEDS: FUROSEMIDE 20 MG TAB PO SCH ×2 (09:39→17:39)
[2016-09-05] MEDS: guaiFENesin E.R. 600 MG TAB PO SCH ×2 (09:39→21:21)
[2016-09-05] MEDS: ONDANSETRON HCL 4 MG/2 ML VIAL IV PUSH PRN ×2 (09:39→21:18)
[2016-09-05] MEDS: SPIRONOLACTONE 25 MG TAB PO SCH ×2 (09:39→17:39)
[2016-09-05] MEDS: SODIUM CHLORIDE 0.9% FLUSH 10 ML FLUSH IV FLUSH SCH ×2 (09:40→21:00)
[2016-09-05] MEDS: predniSONE 5 MG TAB PO SCH (09:47)
--- NOTE | 2016-09-05 10:46 | HHI.PR ---
Subjective Remarks Pt feels ok. had a better night last night. no CP/SOB/N/V. ate her soup this morning w no nausea Objective Vitals Vital Signs Date Time Temp Pulse Resp B/P Pulse Ox O2 Delivery O2 Flow Rate FiO2 09/05/16 09:40 100 09/05/16 09:40 97 Nasal Cannula 2.00 09/05/16 08:32 97 Nasal Cannula 2.00 09/05/16 07:50 96.8 89 20 98/65 96 09/05/16 04:00 96.8 90 16 97/57 96 09/05/16 00:00 96.7 86 16 102/62 97 09/04/16 23:00 Nasal Cannula 2.00 32 09/04/16 23:00 94 09/04/16 20:00 96.2 103 18 98/61 96 09/04/16 18:55 99 Nasal Cannula 2.00 09/04/16 15:50 96.2 102 20 104/70 97 09/04/16 11:50 95.7 97 20 111/70 97 I/O 09/04/16 09/04/16 09/04/16 09/05/16 09/05/16 09/05/16 06:59 14:59 22:59 06:59 14:59 22:59 Intake Total 60 ml 480 ml 240 ml Output Total 100 ml Balance -40 ml 480 ml 240 ml Intake Oral 60 ml 480 ml 240 ml Output Urine Total 100 ml # Voids 2 1 # Bowel Movements 1 Imaging Last Impressions Gall Bladder Ultrasound 09/02/16 0000 Signed Impressions: Service Date/Time: August 09:32 - CONCLUSION: 1. 2.7 cm gallstone in gallbladder without biliary ductal dilatation. Right pleural effusion. Jorge Cody MD Chest X-Ray 08/31/16 0000 Signed Impressions: Service Date/Time: Wednesday, August 31, 2016 06:41 - CONCLUSION: Unchanged bilateral pleural effusions and bibasilar infiltrates. Bert Nunes Jr., MD Cyst Biopsy Asp-Paracentesis US 08/16/16 0000 Signed Impressions: Service Date/Time: Tuesday, August 16, 2016 09:24 - CONCLUSION: Uncomplicated ultrasound guided paracentesis. Grady Wilson MD Pelvis Ultrasound 08/14/16 0000 Signed Impressions: Service Date/Time: Sunday, August 14, 2016 22:18 - CONCLUSION: 1. Moderate amount of ascites within the pelvis. 2. Lack of visualization of both ovaries. 3. No discrete mass observed. Bert Nunes Jr., MD Chest CT 08/14/16 0000 Signed Impressions: Service Date/Time: Monday, August 15, 2016 07:53 - CONCLUSION: Bilateral mild pleural effusions being greater on the right. Fadi Cordova MD Hepatobiliary Scan Nuclear Medicine 08/09/16 0000 Signed Impressions: Service Date/Time: Tuesday, August 09, 2016 20:50 - CONCLUSION: Nonvisualization of the gallbladder however the patient does have a stent in place. I reviewed the CT scan from the same day which failed to demonstrate any obvious gallbladder wall thickening. Delayed images of the gallbladder will be performed. Matt Tovar MD ADDENDUM: COMPARISON: BILIARY SCAN ([facility]), July 30, 2016, 13:41. A delayed image in anterior and right lateral projection was performed at 16 hours. There is no activity seen within the lumen of gallbladder. Since the patient has an indwelling biliary stent, absence of gallbladder visualization is nonpredictive with respect to cystic duct obstruction. Bert Brandon MD Abdomen/Pelvis CT 08/09/16 0000 Signed Impressions: Service Date/Time: Tuesday, August 09, 2016 17:46 - CONCLUSION: 1. Silastic biliary stent now present and appears appropriately positioned. Decreased intrahepatic biliary distention, now mild. No pancreatitis or other acute complication demonstrated. 2. Increased ascites, moderate. Also mild to moderate body wall edema/anasarca developing. 3. Mild enteritis/colitis possible versus reactive wall thickening from the ascites. In any event, no obstruction demonstrated. Fadi Yin MD Objective Remarks Gen in NAD Lungs: good kelly air movement. No wheezing auscultated. Heart: RRR w no murmurs at this time Abdomen: Soft, non tender epigastric area, no peritoneal irritation, BS few. Extremities: Warm, flushed. Neuro: Awake alert oriented 3. Moves 4 limbs. 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 -Imaging reviewed: CT abd showed silastic biliary stent now present and appears appropriately positioned; Decreased intrahepatic biliary distention, now mild; Increased ascites, moderate; mild to moderate body wall edema/anasarca developing; Mild enteritis/colitis possible versus reactive wall thickening from the ascites. HIDA 08/10 shows nonvisualization of the gallbladder. -Consulted gastroenterology, per Dr. Whitehead signed off. -Surgical oncology, Dr. Wylie, consulted. Not a good surgical candidate for cholecystectomy at this time. Symptoms not c/w cholecystitis at this time. -s/p U/S guided abdominal paracentesis 08/11 removed 5L green cloudy fluid, WBC 1320, RBC 897. -tumor markers remarkable for CA-125 elevated at 338, culture negative. -Diuresis with Lasix and Aldactone for ascites -Palliative care oncology following. -Patient had repeat paracentesis done on 08/16/2016. -Patient had ERCP/EUS done today on 08/17/2016. -repeat cytology positive for non-small cell neoplasm. GI signed off. -supportive treatment with pain control and antiemetics prn. Simethicone prn. -s/p Diagnostic and staging laparoscopies and Peritoneal biopsy 08/26/2016 showing adenocarcinoma. -Dr. Stern explained diagnosis, prognosis and management. Patient opted for hospice. -Patient wants hospice. d/w case management. -Patient will need a permanent stent so she scheduled for ERCP with stent placement on Tuesday for palliative management. Group D enterococcus faecalis -One out of 4 blood cultures positive showing group D enterococcus faecalis -Infectious disease is following patient is on Levaquin, Flagyl, Zyvox. Respiratory failure with hypoxia -Occurred after ERCP/EUS -Continue with prednisone taper. Change to 5 mg daily Acute Colitis: seen on CT abdomen as above RESOLVED -s/p treatment with IV Cipro/Flagyl for gastroenterology. -diet as tolerated per gastroenterology -Recommending eating small portions -GI signed off. Recent High Grade CBD Stricture: -s/p ERCP with stent placement 07/31. Pathology revealed rare atypical cells present in the background of numerous glandular epithelial cells, malignancy cannot be excluded. LFTs have been trending down since stent placement. CT abd showed biliary stent appropriately positioned, decreased biliary distention, no pancreatitis. -Gastroenterology has signed off Left-sided pneumonia. -Due to aspiration pneumonia after EUS. Treatment already completed. Hyponatremia: likely secondary to dehydration -Na 129 upon arrival -s/p IVF Hypokalemia -replenished on as needed DVT prophylaxiswith Lovenox Discharge Planning Poor prognosis and can only offer palliative treatment. Patient wishes to go home with home hospice. She will have a ERCP with permanent stent placement on Tuesday. If she does well after the procedure with short monitoring she can go home with home hospice. Problem Qualifiers (1) Abdominal pain: Qualified Code: R10.11 - Right upper quadrant abdominal pain Amber Xie MD September 05, 2016 10:46
[2016-09-05] MEDS: fentaNYL 25 MCG/HR PATCH T-DERMAL SCH (12:37)
[2016-09-05] MEDS ORDERED: REMOVE OLD DURAGESIC (FENTANYL) PATCH T-DERMAL SCH (13:00)
[2016-09-05] MEDS: ENOXAPARIN SODIUM 40 MG/0.4 ML SYRINGE SQ SCH (17:39)
[2016-09-06] VITALS (11 sets, daily range): BP systolic 77–104; BP diastolic 58–69; PULSE 67–121; RESP 16–19; TEMP 96.4–97; O2SAT 94–98
--- NOTE | 2016-09-06 01:03 | HHI.FPPN ---
Addendum to progress note ADDENDUM Reason for addendum: Additonal documentation Additional information HALICAT S: Residents paged regarding pt's tachycardia. Per nurses, they recorded heart rate up to 136. Pt was sleeping at the time. Upon entering the room, pt resting in bed comfortably, in no distress. Pt states she had just a little chest pain. No radiating pain. Denies any nausea/vomting, diaphoresis. No shortness of breath. O: Vitals reviewed: Pulse 93, BP 90s/70s, 97% Gen: NAD, lying in bed Skin: Warm/dry CV: Irregularly irregular rhythm Lungs: CTAB Ext: Pulses intact, no edema Neuro: Awake, alert, oriented A/P: 56 y/o admitted for metastatic adenocarcinoma found with tachycardia Stat EKG reviewed, shows atrial fibrillation, 93 bpm Pt receiving Cardizem, Metoprolol Pt's heart normalized on arrival, asymptomatic -Stat troponins to rule out ACS -BMP to rule out electrolyte abnormality -Continue to monitor vitals Srinivas Cooper MD R1 September 06, 2016 01:03
[2016-09-06 02:02] LABS: ANION GAP 9 MEQ/L (5-15); BICARBONATE 27.7 MEQ/L (21.0-32.0); BLOOD UREA NITROGEN 19 MG/DL (7-18); CHLORIDE 94 MEQ/L (98-107); GLOMERULAR FILTRATION RATE 165 ML/MIN (>89); POTASSIUM 3.7 MEQ/L (3.5-5.1); SODIUM (NA) 131 MEQ/L (136-145)
[2016-09-06 02:10] LABS: CREATINE KINASE 12 U/L (26-192)
[2016-09-06] MEDS: DILTIAZEM HCL 30 MG TAB PO SCH ×4 (06:00→17:30)
[2016-09-06] MEDS: metroNIDAZOLE 500 MG TAB PO SCH ×4 (06:00→20:44)
[2016-09-06] MEDS: RESP: BUDESONIDE 0.5 MG/2 ML NEB NEB SCH ×2 (07:45→20:43)
[2016-09-06] MEDS: METOPROLOL TARTRATE 25 MG TAB PO SCH ×2 (09:00→20:45)
[2016-09-06] MEDS: SODIUM CHLORIDE 0.9% FLUSH 10 ML FLUSH IV FLUSH SCH ×2 (09:00→20:47)
--- NOTE | 2016-09-06 09:10 | HHI.PR ---
Subjective Remarks Pt tells me that he feels a little dizzy but denies nausea or vomiting at this time. she tells me that she drank her soup last night but vomited. Denies any CP /palpitations at this time. Overnight, residents evaluated the patient due to tachycardia but when they saw her HR rate atrial fib in the 90's. Discussed w RN, no concerns at this time. Objective Vitals Vital Signs Date Time Temp Pulse Resp B/P Pulse Ox O2 Delivery O2 Flow Rate FiO2 09/06/16 08:00 97.0 67 18 99/69 98 09/06/16 07:47 94 Nasal Cannula 2.00 09/06/16 04:00 96.4 82 17 89/58 95 09/06/16 02:03 98 09/06/16 00:35 97 2.00 09/06/16 00:00 96.4 98 19 97/61 97 77/63 09/05/16 21:25 Nasal Cannula 2.00 32 09/05/16 21:22 95 Nasal Cannula 2.00 09/05/16 20:00 96.9 92 17 96/59 93 09/05/16 15:50 96.8 95 20 117/65 95 09/05/16 11:50 96.0 94 20 95/63 96 09/05/16 09:40 100 09/05/16 09:40 97 Nasal Cannula 2.00 I/O 09/05/16 09/05/16 09/05/16 09/06/16 09/06/16 09/06/16 07:00 15:00 23:00 07:00 15:00 23:00 Intake Total 240 ml 360 ml 60 ml 0 ml Output Total 300 ml 250 ml 200 ml Balance 240 ml 60 ml 60 ml -250 ml -200 ml Intake Oral 240 ml 360 ml 60 ml 0 ml Output Urine Total 300 ml 250 ml 200 ml # Voids 1 1 # Bowel Movements 2 0 0 Result Diagram: 09/06/16 0142 Imaging Last Impressions Gall Bladder Ultrasound 09/02/16 0000 Signed Impressions: Service Date/Time: August 09:32 - CONCLUSION: 1. 2.7 cm gallstone in gallbladder without biliary ductal dilatation. Right pleural effusion. Jorge Cody MD Chest X-Ray 08/31/16 0000 Signed Impressions: Service Date/Time: Wednesday, August 31, 2016 06:41 - CONCLUSION: Unchanged bilateral pleural effusions and bibasilar infiltrates. Bert Nunes Jr., MD Cyst Biopsy Asp-Paracentesis US 08/16/16 Signed Impressions: Service Date/Time: Tuesday, August 16, 2016 09:24 - CONCLUSION: Uncomplicated ultrasound guided paracentesis. Grady Wilson MD Pelvis Ultrasound 08/14/16 0000 Signed Impressions: Service Date/Time: Sunday, August 14, 2016 22:18 - CONCLUSION: 1. Moderate amount of ascites within the pelvis. 2. Lack of visualization of both ovaries. 3. No discrete mass observed. Bert Nunes Jr., MD Chest CT 08/14/16 Signed Impressions: Service Date/Time: Monday, August 15, 2016 07:53 - CONCLUSION: Bilateral mild pleural effusions being greater on the right. Fadi Cordova MD Hepatobiliary Scan Nuclear Medicine 08/09/16 Signed Impressions: Service Date/Time: Tuesday, August 09, 2016 20:50 - CONCLUSION: Nonvisualization of the gallbladder however the patient does have a stent in place. I reviewed the CT scan from the same day which failed to demonstrate any obvious gallbladder wall thickening. Delayed images of the gallbladder will be performed. Matt Tovar MD ADDENDUM: COMPARISON: BILIARY SCAN ([facility]), July 30, 2016, 13:41. A delayed image in anterior and right lateral projection was performed at 16 hours. There is no activity seen within the lumen of gallbladder. Since the patient has an indwelling biliary stent, absence of gallbladder visualization is nonpredictive with respect to cystic duct obstruction. Bert Brandon MD Abdomen/Pelvis CT 08/09/16 0000 Signed Impressions: Service Date/Time: Tuesday, August 09, 2016 17:46 - CONCLUSION: 1. Silastic biliary stent now present and appears appropriately positioned. Decreased intrahepatic biliary distention, now mild. No pancreatitis or other acute complication demonstrated. 2. Increased ascites, moderate. Also mild to moderate body wall edema/anasarca developing. 3. Mild enteritis/colitis possible versus reactive wall thickening from the ascites. In any event, no obstruction demonstrated. Fadi Yin MD Objective Remarks Gen in NAD but looks tired Lungs: good kelly air movement. No wheezing auscultated. Heart: irregularly irregular, reviewed TELE and HR in the 's Abdomen: Soft, non tender epigastric area, no peritoneal irritation, BS few. Extremities: Warm, flushed. Neuro: Awake alert oriented 3. Moves 4 limbs. 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 -Imaging reviewed: CT abd showed silastic biliary stent now present and appears appropriately positioned; Decreased intrahepatic biliary distention, now mild; Increased ascites, moderate; mild to moderate body wall edema/anasarca developing; Mild enteritis/colitis possible versus reactive wall thickening from the ascites. HIDA 08/10 shows nonvisualization of the gallbladder. -GI following, will be placing a permanent metal stent (palliative) today around 9am -Surgical oncology, Dr. Wylie, consulted. Not a good surgical candidate for cholecystectomy at this time. Symptoms not c/w cholecystitis at this time. -s/p U/S guided abdominal paracentesis 08/11 removed 5L green cloudy fluid, WBC 1320, RBC 897. -tumor markers remarkable for CA-125 elevated at 338, culture negative. -Diuresis with Lasix and Aldactone for ascites -Palliative care oncology following. -Patient had repeat paracentesis done on 08/16/2016. -Patient had ERCP/EUS done today on 08/17/2016. -repeat cytology positive for non-small cell neoplasm. GI signed off. -supportive treatment with pain control and antiemetics prn. Simethicone prn. -s/p Diagnostic and staging laparoscopies and Peritoneal biopsy 08/26/2016 showing adenocarcinoma. -Dr. Stern explained diagnosis, prognosis and management. Patient opted for hospice. Group D enterococcus faecalis -One out of 4 blood cultures positive showing group D enterococcus faecalis -Infectious disease is following patient is on Levaquin, Flagyl, Zyvox. Respiratory failure with hypoxia -Occurred after ERCP/EUS -Continue with prednisone taper, on 5 mg daily Acute Colitis: seen on CT abdomen as above RESOLVED -s/p treatment with IV Cipro/Flagyl for gastroenterology. -diet as tolerated per gastroenterology -Recommending eating small portions Recent High Grade CBD Stricture: -s/p ERCP with stent placement 07/31. Pathology revealed rare atypical cells present in the background of numerous glandular epithelial cells, malignancy cannot be excluded. LFTs have been trending down since stent placement. CT abd showed biliary stent appropriately positioned, decreased biliary distention, no pancreatitis. Left-sided pneumonia. -Due to aspiration pneumonia after EUS. Treatment already completed. Hyponatremia: likely secondary to dehydration -Na 129 upon arrival and 131 on 09/06/16 -s/p IVF Hypokalemia -replenished on as needed DVT prophylaxiswith Lovenox Discharge Planning Poor prognosis and can only offer palliative treatment. Patient wishes to go home with home hospice. She will have a ERCP with permanent stent placement this morning and once cleared by GI, she will be discharged home w hospice. Problem Qualifiers (1) Abdominal pain: Qualified Code: R10.11 - Right upper quadrant abdominal pain Amber Xie MD September 06, 2016 09:10
[2016-09-06 10:55] LABS: INDIRECT BILIRUBIN 0.4 MG/DL (0.0-0.8); TOTAL BILIRUBIN ADULT 0.9 MG/DL (0.2-1.0)
[2016-09-06] MEDS: LEVOFLOXACIN 750 MG TAB PO SCH (11:02)
[2016-09-06] MEDS: predniSONE 5 MG TAB PO SCH (11:02)
[2016-09-06] MEDS: LINEZOLID 600 MG TAB PO SCH ×2 (11:02→20:44)
[2016-09-06] MEDS: guaiFENesin E.R. 600 MG TAB PO SCH ×2 (11:02→20:44)
[2016-09-06] MEDS: PANTOPRAZOLE SOD 40 MG DELAYED RELEASE TAB PO SCH (11:02)
[2016-09-06] MEDS: SPIRONOLACTONE 25 MG TAB PO SCH ×2 (11:02→17:30)
[2016-09-06] MEDS: FAMOTIDINE 20 MG TAB PO SCH ×2 (11:02→20:45)
[2016-09-06] MEDS: FUROSEMIDE 20 MG TAB PO SCH ×2 (11:02→17:30)
--- NOTE | 2016-09-06 12:55 | HHI.GIFU ---
Subjective Remarks [employer] used. Resting in bed. Had some nausea last night, but has not had this today. No abdominal pain. D/W patient and family on decision by GI/Oncology to hold off on ERCP with metal stent- now afebrile and LFTs improving. Verbalizes understanding. Would like to have diet resumed. Objective Vitals I&O Vital Signs Date Time Temp Pulse Resp B/P Pulse Ox O2 Delivery O2 Flow Rate FiO2 09/06/16 12:00 96.8 70 16 103/65 97 09/06/16 08:00 97.0 67 18 99/69 98 09/06/16 07:47 94 Nasal Cannula 2.00 09/06/16 04:00 96.4 82 17 89/58 95 09/06/16 02:03 98 09/06/16 00:35 97 2.00 09/06/16 00:00 96.4 98 19 97/61 97 77/63 09/05/16 21:25 Nasal Cannula 2.00 32 09/05/16 21:22 95 Nasal Cannula 2.00 09/05/16 20:00 96.9 92 17 96/59 93 09/05/16 15:50 96.8 95 20 117/65 95 I/O 09/05/16 09/05/16 09/05/16 09/06/16 09/06/16 09/06/16 07:00 15:00 23:00 07:00 15:00 23:00 Intake Total 240 ml 360 ml 60 ml 0 ml Output Total 300 ml 250 ml 200 ml Balance 240 ml 60 ml 60 ml -250 ml -200 ml Intake Oral 240 ml 360 ml 60 ml 0 ml Output Urine Total 300 ml 250 ml 200 ml # Voids 1 1 # Bowel Movements 2 0 0 Laboratory Laboratory Tests Test 09/06/16 09/06/16 01:42 10:01 Sodium Level 131 Potassium Level 3.7 Chloride Level 94 Carbon Dioxide Level 27.7 Anion Gap 9 Blood Urea Nitrogen 19 Creatinine 0.40 Estimat Glomerular Filtration 165 Rate Random Glucose 92 Calcium Level 8.2 Total Creatine Kinase 12 Troponin I LESS THAN 0.02 Total Bilirubin 0.9 Direct Bilirubin 0.5 Indirect Bilirubin 0.4 Aspartate Amino Transf 67 (AST/SGOT) Alanine Aminotransferase 40 (ALT/SGPT) Alkaline Phosphatase 589 Total Protein 7.3 Albumin 2.5 Date/Time Procedure Status Source Growth 09/01/16 18:25 Aerobic Blood Culture - Final Complete Blood Peripheral NO GROWTH IN 5 DAYS 09/01/16 18:25 Anaerobic Blood Culture - Final Complete Blood Peripheral NO GROWTH IN 5 DAYS Imaging Last Impressions Gall Bladder Ultrasound 09/02/16 0000 Signed Impressions: Service Date/Time: August 09:32 - CONCLUSION: 1. 2.7 cm gallstone in gallbladder without biliary ductal dilatation. Right pleural effusion. Jorge Cody MD Chest X-Ray 08/31/16 0000 Signed Impressions: Service Date/Time: Wednesday, August 31, 2016 06:41 - CONCLUSION: Unchanged bilateral pleural effusions and bibasilar infiltrates. Bert Nunes Jr., MD Cyst Biopsy Asp-Paracentesis US 08/16/16 0000 Signed Impressions: Service Date/Time: Tuesday, August 16, 2016 09:24 - CONCLUSION: Uncomplicated ultrasound guided paracentesis. Grady Wilson MD Pelvis Ultrasound 08/14/16 0000 Signed Impressions: Service Date/Time: Sunday, August 14, 2016 22:18 - CONCLUSION: 1. Moderate amount of ascites within the pelvis. 2. Lack of visualization of both ovaries. 3. No discrete mass observed. Bert Nunes Jr., MD Chest CT 08/14/16 0000 Signed Impressions: Service Date/Time: Monday, August 15, 2016 07:53 - CONCLUSION: Bilateral mild pleural effusions being greater on the right. Fadi Cordova MD Hepatobiliary Scan Nuclear Medicine 08/09/16 0000 Signed Impressions: Service Date/Time: Tuesday, August 09, 2016 20:50 - CONCLUSION: Nonvisualization of the gallbladder however the patient does have a stent in place. I reviewed the CT scan from the same day which failed to demonstrate any obvious gallbladder wall thickening. Delayed images of the gallbladder will be performed. Matt Tovar MD ADDENDUM: COMPARISON: BILIARY SCAN (HIDA), July 30, 2016, 13:41. A delayed image in anterior and right lateral projection was performed at 16 hours. There is no activity seen within the lumen of gallbladder. Since the patient has an indwelling biliary stent, absence of gallbladder visualization is nonpredictive with respect to cystic duct obstruction. Bert Brandon MD Abdomen/Pelvis CT 08/09/16 0000 Signed Impressions: Service Date/Time: Tuesday, August 09, 2016 17:46 - CONCLUSION: 1. Silastic biliary stent now present and appears appropriately positioned. Decreased intrahepatic biliary distention, now mild. No pancreatitis or other acute complication demonstrated. 2. Increased ascites, moderate. Also mild to moderate body wall edema/anasarca developing. 3. Mild enteritis/colitis possible versus reactive wall thickening from the ascites. In any event, no obstruction demonstrated. Fadi Yin MD Physical Exam HEENT: Normocephalic; atraumatic; no jaundice. CHEST: CTA. CARDIAC: ST ABDOMEN: +BS, soft, mild distention, mild RUQ/epigastric tenderness, mild ascites EXTREMITIES: Mild BLE, edema. SKIN: Normal; no rash; no jaundice. ROLLER STAKER: No focal deficits; alert and oriented times three. 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 Suspected primary pancreatic/ biliary source. AFP 2.1, CEA 1.1, Ca19-9 14.4, Ca 125 338. S/P Cyst Biopsy Asp-Paracentesis US (08/11/16)----> Uncomplicated ultrasound guided paracentesis with 5000cc of fluid removed. 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 This is suspicious for malignant ascites, but no obvious primary source at this time. S/P Pelvix US and Chest CT- Bilateral mild pleural effusions, greater on the right, moderate amount of ascites within the pelivs, but no obvious mass detected. S/P rpt. paracentesis (08/16) with 30cc removed for diagnostic purposes, cytology pending. Cx no growth x 48 hours. S/P EUS (08/18)-----> Unremarkable endoscopic ultrasound. S/P Diagnostic laparoscopy, laparoscopic peritoneal biopsy (08/25/16), pathology with peritoneal biopsies with invasive poorly differentiated non- small cell carcinoma, diffusely involving the peritoneal surface. Oncology/palliative care following. Plan is for patient eventually to go home with hospice. - High grade CBD stricture. S/P ERCP with brushings/stent placement (07/31/16)---- > intra hepatic duct dilatation, s/p brushings, s/p stent placement. Pathology revealed rare atypical cells present in the background of numerous glandular epithelial cells, malignancy cannot be excluded. LFTs have been trending down since stent placement. AFP during last hospitalization was 2.4. Ca19-9 10.7 , CEA 1.2, Ca 125 338.4. Pt started having fevers/increased elevated LFTs on 09/01. US (09/02/16)-----> 2.7 cm gallstone in gallbladder without biliary ductal dilatation. Right pleural effusion. Plan was for possible ERCP with metal stent, as she had fever/elevated LFTs last week. However, she has since been afebrile and her LFTs are now trending down, the stent seems to be working. Dr. Real spoke with Dr. Stern, who agrees at this point, there is no need for ERCP/metal stent. - Abdominal pain, Nausea, Decreased appetite, Early Satiety. Improved, but still having bloating and discomfort after meals. - Leukocytosis. Zyvox. - ? Underlying liver disease, ?Cirrhosis. Hepatitis panel negative. ARAMIS negative. AMA < 20.0, ASMA negative, AFP 2.1, Iron saturation 27.9, Ferritin 41, Ceruloplasmin 36, Alpha 1 Antitrypsin 191. Likely more related to above. PLAN: - SARAHI - Cont. Zyvox - Cont. Spironolactone and Lasix - Cont. PPI - Oncology following - Palliative care following - Dr. Real/Dr. Stern discussed case. Pt has been afebrile and LFTs are trending down, so stent now seems to be working. Will hold on stent exchange at this time. - Further recommendations as the case develops - Pt seen and examined by Dr. Nunn and myself and this note is written on his behalf Elena Lowery September 06, 2016 12:55
--- NOTE | 2016-09-06 14:51 | EKG ---
Date Performed: 09/06/2016 Time Performed: 07:12:12 PTAGE: 56 years EKG: ATRIAL FIBRILLATION WITH RAPID VENTRICULAR RESPONSE ABNORMAL RHYTHM ECG Since prior tracing , atrial fibrillation has replaced sinus tachycardia. PREVIOUS TRACING : 08/31/2016 23.27 DOCTOR: Frederick Strong Interpretating Date/Time 09/06/2016 14:47:05
[2016-09-07] VITALS (7 sets, daily range): BP systolic 91–112; BP diastolic 60–74; PULSE 95–108; RESP 16–18; TEMP 96.4–97.1; O2SAT 93–97
[2016-09-07] MEDS: DILTIAZEM HCL 30 MG TAB PO SCH ×3 (00:15→11:02)
[2016-09-07] MEDS: HYDROmorphone HCL PF 1 MG/ML VIAL IV PUSH PRN (00:23)
[2016-09-07] MEDS: ONDANSETRON HCL 4 MG/2 ML VIAL IV PUSH PRN ×2 (00:28→08:43)
[2016-09-07] MEDS ORDERED: ONDANSETRON HCL 4 MG/2 ML VIAL IV PUSH ONE (04:00)
[2016-09-07] MEDS: metroNIDAZOLE 500 MG TAB PO SCH ×2 (05:29→14:00)
[2016-09-07] MEDS: RESP: BUDESONIDE 0.5 MG/2 ML NEB NEB SCH (08:01)
[2016-09-07] MEDS: SODIUM CHLORIDE 0.9% FLUSH 10 ML FLUSH IV FLUSH SCH (09:00)
--- NOTE | 2016-09-07 09:56 | HHI.DS ---
Discharge Summary Admission Date Aug 10, 2016 at 10:27 Discharge Date: September 07, 2016 Admitting Diagnosis Right Upper Abd pain (1) Abdominal pain ICD Code: R10.9 Diagnosis: Principal (2) non-small cell neoplasm in ascitic cytology Diagnosis: Principal Procedures U/S guided abdominal paracentesis 08/11 repeat paracentesis done on 08/16/2016. ERCP/EUS done on 08/17/2016. s/p Diagnostic and staging laparoscopies and Peritoneal biopsy 08/26/2016 showing adenocarcinoma. Brief History - From Admission History from patient with wash mill operator at the bedside and patient's brother at the bedside. Patient reported that she came to the hospital because she was having continued abdominal pain for the past 2 days. She also noted her abdominal size to be getting bigger. She reports she was not able to eat much because she feels full easily. She did vomit once today. No black color vomit or red color vomit. Denies any blood in her urine. However reports of severe pain when she urinates as well. No flank pain. But does have generalized back pains. Patient also reports of subjective cold and chills at home. On review of records, patient was recently here for similar symptoms it was time she did have ERCP with biliary stent placement. In the emergency room, CT imaging studies revealed the stent to be in correct position. Her case was discussed with the GI doctor in ER and HIDA scan was also ordered as well. Apart from the above, patient denies any chest pain/shortness of breath/ syncopal episodes. She lives by herself. Denies any recent falls. CBC/BMP: 09/06/16 0142 Significant Findings Laboratory Tests Test 09/06/16 09/06/16 01:42 10:01 Sodium Level 131 MEQ/L (136-145) Chloride Level 94 MEQ/L (98-107) Blood Urea Nitrogen 19 MG/DL (7-18) Creatinine 0.40 MG/DL (0.50-1.00) Calcium Level 8.2 MG/DL (8.5-10.1) Total Creatine Kinase 12 U/L (26-192) Troponin I LESS THAN 0.02 NG/ML (0.02-0.05) Direct Bilirubin 0.5 MG/DL (0.0-0.2) Aspartate Amino Transf 67 U/L (15-37) (AST/SGOT) Alkaline Phosphatase 589 U/L (45-117) Albumin 2.5 GM/DL (3.4-5.0) Imaging Last Impressions Gall Bladder Ultrasound 09/02/16 0000 Signed Impressions: Service Date/Time: August 09:32 - CONCLUSION: 1. 2.7 cm gallstone in gallbladder without biliary ductal dilatation. Right pleural effusion. Jorge Cody MD Chest X-Ray 08/31/16 0000 Signed Impressions: Service Date/Time: Wednesday, August 31, 2016 06:41 - CONCLUSION: Unchanged bilateral pleural effusions and bibasilar infiltrates. Bert Nunes Jr., MD Cyst Biopsy Asp-Paracentesis US 08/16/16 0000 Signed Impressions: Service Date/Time: Tuesday, August 16, 2016 09:24 - CONCLUSION: Uncomplicated ultrasound guided paracentesis. Grady Wilson MD Pelvis Ultrasound 08/14/16 0000 Signed Impressions: Service Date/Time: Sunday, August 14, 2016 22:18 - CONCLUSION: 1. Moderate amount of ascites within the pelvis. 2. Lack of visualization of both ovaries. 3. No discrete mass observed. Bert Nunes Jr., MD Chest CT 08/14/16 0000 Signed Impressions: Service Date/Time: Monday, August 15, 2016 07:53 - CONCLUSION: Bilateral mild pleural effusions being greater on the right. Fadi Cordova MD Hepatobiliary Scan Nuclear Medicine 08/09/16 0000 Signed Impressions: Service Date/Time: Tuesday, August 09, 2016 20:50 - CONCLUSION: Nonvisualization of the gallbladder however the patient does have a stent in place. I reviewed the CT scan from the same day which failed to demonstrate any obvious gallbladder wall thickening. Delayed images of the gallbladder will be performed. Matt Tovar MD ADDENDUM: COMPARISON: BILIARY SCAN ([facility]), July 30, 2016, 13:41. A delayed image in anterior and right lateral projection was performed at 16 hours. There is no activity seen within the lumen of gallbladder. Since the patient has an indwelling biliary stent, absence of gallbladder visualization is nonpredictive with respect to cystic duct obstruction. Bert Brandon MD Abdomen/Pelvis CT 08/09/16 0000 Signed Impressions: Service Date/Time: Tuesday, August 09, 2016 17:46 - CONCLUSION: 1. Silastic biliary stent now present and appears appropriately positioned. Decreased intrahepatic biliary distention, now mild. No pancreatitis or other acute complication demonstrated. 2. Increased ascites, moderate. Also mild to moderate body wall edema/anasarca developing. 3. Mild enteritis/colitis possible versus reactive wall thickening from the ascites. In any event, no obstruction demonstrated. Fadi Yin MD PE at Discharge Gen in NAD but looks tired Lungs: good kelly air movement. No wheezing auscultated. Heart: irregularly irregular, reviewed TELE and HR in the 90's Abdomen: Soft, non tender epigastric area, no peritoneal irritation, BS few. Extremities: Warm, flushed. Neuro: Awake alert oriented 3. Moves 4 limbs. Pt update on day of discharge Pt feeling nauseous, no pain, no CP/SOB. would like me to speak w her brother. Hospital Course 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 -Imaging reviewed: CT abd showed silastic biliary stent now present and appears appropriately positioned; Decreased intrahepatic biliary distention, now mild; Increased ascites, moderate; mild to moderate body wall edema/anasarca developing; Mild enteritis/colitis possible versus reactive wall thickening from the ascites. HIDA 08/10 shows nonvisualization of the gallbladder. -Surgical oncology, Dr. Wylie, consulted. Not a good surgical candidate for cholecystectomy at this time. Symptoms not c/w cholecystitis at this time. -s/p U/S guided abdominal paracentesis 08/11 removed 5L green cloudy fluid, WBC 1320, RBC 897. -tumor markers remarkable for CA-125 elevated at 338, culture negative. -Diuresis with Lasix and Aldactone for ascites -Patient had repeat paracentesis done on 08/16/2016. -Patient had ERCP/EUS done on 08/17/2016. -repeat cytology positive for non-small cell neoplasm. -supportive treatment with pain control and antiemetics prn. Simethicone prn. -s/p Diagnostic and staging laparoscopies and Peritoneal biopsy 08/26/2016 showing adenocarcinoma. -Dr. Stern explained diagnosis, prognosis and management. Patient opted for hospice. Group D enterococcus faecalis -One out of 4 blood cultures positive showing group D enterococcus faecalis -Infectious disease evaluated the pt and treated her w Levaquin, Flagyl, Zyvox. Respiratory failure with hypoxia -Occurred after ERCP/EUS -Continue with prednisone taper, on 5 mg daily Acute Colitis: seen on CT abdomen as above RESOLVED -diet as tolerated per gastroenterology and Recommending eating small portions Recent High Grade CBD Stricture: -s/p ERCP with stent placement 07/31. Pathology revealed rare atypical cells present in the background of numerous glandular epithelial cells, malignancy cannot be excluded. LFTs have been trending down since stent placement. CT abd showed biliary stent appropriately positioned, decreased biliary distention, no pancreatitis. discussed the case w GI who had discussed w oncology and since pt has been afebrile and LFTs have been trending down, the stent currently in place seems to be working, at this time the decision is to hold off on stent exchange. Pt's wishes are to go home w hospice. I had a long discussion w brother in faroese and explained to him the plan. He is agreeable as well. Once Hospice has everything set for patient, she will be discharged to home w hospice. Pt Condition on Discharge: Guarded Discharge Disposition: Hospice/ Home Discharge Time: > 30 minutes Discharge Instructions DIET: Follow Instructions for: As Tolerated, No Restrictions Activities you can perform: Regular-No Restrictions Follow up Referrals: Physician - 1 Week Amber Xie MD September 07, 2016 09:56
[2016-09-07] MEDS ORDERED: METOCLOPRAMIDE HCL 10 MG/2 ML VIAL IV PUSH PRN (10:00)
[2016-09-07] MEDS: LINEZOLID 600 MG TAB PO SCH (11:02)
[2016-09-07] MEDS: PANTOPRAZOLE SOD 40 MG DELAYED RELEASE TAB PO SCH (11:02)
[2016-09-07] MEDS: predniSONE 5 MG TAB PO SCH (11:02)
[2016-09-07] MEDS: SPIRONOLACTONE 25 MG TAB PO SCH (11:03)
[2016-09-07] MEDS: guaiFENesin E.R. 600 MG TAB PO SCH (11:03)
[2016-09-07] MEDS: FUROSEMIDE 20 MG TAB PO SCH (11:03)
[2016-09-07] MEDS: METOPROLOL TARTRATE 25 MG TAB PO SCH (11:03)
[2016-09-07] MEDS: FAMOTIDINE 20 MG TAB PO SCH (11:03)
[2016-09-07] MEDS: LEVOFLOXACIN 750 MG TAB PO SCH (11:03)
[2016-09-07] MEDS ORDERED: FURO20TA PO (16:16)
[2016-09-07] MEDS ORDERED: DILT31TA PO (16:16)
[2016-09-07] MEDS ORDERED: Spironolactone PO (16:16)
[2016-09-07] MEDS ORDERED: PRED5TAB PO (16:16)
[2016-09-07] MEDS ORDERED: METO25TA3 PO (16:16)
[2016-09-07] MEDS ORDERED: ZOFR4TAB PO (16:17)
== END 2016-09-07 17:15 | disposition hospice, home (50) | DRG 356 ==
LOC: NEPC 14:23 → NEDA 19:07 → NEPFCDU 23:13 → OBSVTOIN 08-10 10:27 → HOCA 08-14 17:32 → HIME 08-17 17:58 → HOCB 08-19 22:18
PROVIDERS: ADMIT Internal Medicine; ATTEND Hospitalist
PROC: 0W9G3ZX Drainage of Peritoneal Cavity, Percutaneous Approach, Diagnostic (ICD-10-PCS; 2016-08-11)
PROC: 0W9G3ZX Drainage of Peritoneal Cavity, Percutaneous Approach, Diagnostic (ICD-10-PCS; 2016-08-16)
PROC: 0DJ08ZZ Inspection of Upper Intestinal Tract, Via Natural or Artificial Opening Endoscopic (ICD-10-PCS; 2016-08-17)
PROC: BD47ZZZ Ultrasonography of Gastrointestinal Tract (ICD-10-PCS; 2016-08-17)
PROC: 0DBW4ZX Excision of Peritoneum, Percutaneous Endoscopic Approach, Diagnostic (ICD-10-PCS; 2016-08-25)
PROC: 0W9G4ZZ Drainage of Peritoneal Cavity, Percutaneous Endoscopic Approach (ICD-10-PCS; 2016-08-25)
PROC: 0WJP4ZZ Inspection of Gastrointestinal Tract, Percutaneous Endoscopic Approach (ICD-10-PCS; principal; 2016-08-25 15:18)
DX: C78.6 Secondary malignant neoplasm of retroperitoneum and peritoneum (principal); J69.0 Pneumonitis due to inhalation of food and vomit; R65.20 Severe sepsis without septic shock; J95.821 Acute postprocedural respiratory failure; R18.0 Malignant ascites; A41.9 Sepsis, unspecified organism; J90 Pleural effusion, not elsewhere classified; K83.1 Obstruction of bile duct; E87.1 Hypo-osmolality and hyponatremia; C25.9 Malignant neoplasm of pancreas, unspecified; C24.9 Malignant neoplasm of biliary tract, unspecified; E86.0 Dehydration; I48.91 Unspecified atrial fibrillation; G89.3 Neoplasm related pain (acute) (chronic); E87.6 Hypokalemia; K52.9 Noninfective gastroenteritis and colitis, unspecified; Z51.5 Encounter for palliative care; Z66 Do not resuscitate; B95.2 Enterococcus as the cause of diseases classified elsewhere; K80.20 Calculus of gallbladder without cholecystitis without obstruction; Z88.0 Allergy status to penicillin
CPT/HCPCS: 36600; 43259; 49083; 71010; 71020; 71260; 74177; 76705; 76830; 76856; 76937; 78226; 80048; 80053; 80076; 80202; 81001; 82042; 82105; 82150; 82378; 82550; 82805; 82945; 83605; 83615; 83690; 83735; 83880; 84100; 84155; 84157; 84484; 85025; 85027; 85610; 85730; 86301; 86304; 87040; 87070; 87077; 87086; 87186; 87205; 87493; 87641; 88112; 88305; 88341; 88342; 89051; 93005; 94150; 94640; 94664; 94762; 96374; 96375; A9537; C1729; G0378; J0131; J0692; J0744; J1170; J1650; J1885; J1940; J1956; J2020; J2270; J2405; J2710; J2765; J2930; J3010; J3370; J7030; J7040; J7050; J7120; J7512; J7626; J7644; Q9967